=== PATIENT | female | born 1995 | race Caucasian/White ===

== ENCOUNTER 2018-09-05 09:12 | Day surgery (SDC) | payer OTHER, SELFPAY ==
[2018-09-05] VITALS (8 sets, daily range): BP systolic 111–146; BP diastolic 66–95; PULSE 67–98; RESP 16–18; TEMP 36.1–36.6; O2SAT 92–100; BMI 43.9
[2018-09-05 09:52] LABS: Internal QC Validated? YES +Cl - CLEAR BKGD; Pregnancy, Urine Negative Negative
[2018-09-05 09:55] LABS: Hematocrit 34.9 % (37-47); Hemoglobin 10.8 g/dl (12.0-15.0); Mean Corp Hgb Conc 30.9 g/gl (32-36); Mean Corpuscular Hgb 22.5 pg (27.0-32.0); Mean Corpuscular Volume 72.7 fL (81-99); Mean Platelet Vol. 9.4 fl (6.2-12.0); Platelet Count 379 K/mm3 (150-450); RBC Distribution Width SD 42.4 fl (35.1-43.9); White Blood Count 7.7 K/mm3 (4.4-11.0)
[2018-09-05 09:59] LABS: Scan Indicated on CBC? Y/N YES- FLAGS NOTED
[2018-09-05 10:00] LABS: International Normalized Ratio 1.1; Prothrombin Time (Protime)PT. 13.8 SECONDS (11.7-14.9)
[2018-09-05 10:01] LABS: Partial Thromboplast Time 32.7 Seconds (24.1-36.2)
--- NOTE | 2018-09-05 11:05 | TONS_PTH ---
PATIENT: SHERIN SANDOVAL [place] [facility] [place] [facility] [place][id number] AGE/SX: 23/ ROOM: RE09/05/[address]: Dr. Ray Robbins MD : 1995 BED: DIS: 09/05/2018 SPEC #: [id number] RECD: 09/08/18 07:15 STATUS: ESAU NA #: [id number] DELFIN: 09/05/18 11:[address]: Ray Robbins DEPT: SURGICAL PATHOLOGY RECD BY: Nory Contreras ENTERED: 09/08/18 11:03 SP TYPE: TONSILS OTHR DR: GLENN uCrtis Tissues: A - Tonsil, NOS B - Tonsil, NOS Procedures: Surgery Specimen Level III HEADER OPERATION: Tonsillectomy PRE-OP DIAGNOSIS: Chronic tonsillitis TISSUE SUBMITTED: A. Right tonsil, B. Left tonsil MICROSCOPIC DIAGNOSIS A. Right tonsil: Reactive lymphoid hyperplasia, consistent with chronic tonsillitis. Focal superficial acute inflammation and bacterial colonization. B. Left tonsil: Reactive lymphoid hyperplasia, consistent with chronic tonsillitis. Focal superficial acute inflammation, bacterial and actinomyces colonization. CUCA:janet 09/09/18 MICROSCOPIC DESCRIPTION Slides are reviewed. GROSS DESCRIPTION A - Received in formalin labeled with the patient's name and designated right tonsil. The specimen consists of a tonsil that weighs 6.8 gm and measures 3.5 x 2 x 1.6 cm. The external surface is pink-davalos, smooth, glistening and somewhat lobulated. Focally it is hemorrhagic, granular and bears cautery artifact. Serial cross sections through the tonsil reveal normal tonsillar architecture. Financial Sales Assistant sections are submitted in one cassette. B - Received in formalin labeled with the patient's name and designated left tonsil. The specimen consists of a tonsil that weighs 6 gm and measures 3.2 x 2 x 1.6 cm. The external surface is pink-davalos, smooth, glistening and somewhat lobulated. Focally it is hemorrhagic, granular and bears cautery artifact. Serial cross sections through the tonsil reveal normal tonsillar architecture. Financial Sales Assistant sections are submitted in one cassette. / CUCA:janet 09/08/18 TC:3 CPT: 94810 x2
--- NOTE | 2018-09-05 12:19 | PCM.OPRPT ---
Problem List (1) Chronic tonsillitis Status: Chronic Report of Operation Date of Procedure: 09/05/18 Pre-Operative Diagnosis: Chronic tonsillitis Post-Operative Diagnosis: same Surgery/Procedure Performed:: Tonsillectomy Description of Surgical Findings:: Sonia is a 19-year-old female which is evaluation of chronic and worsening sore throat secondary to tonsillar stones. This is failed to resolve with hygienic measures and the above procedure was offered in hopes of more definitive relief. The risks, alternatives, potential complications, and benefits were discussed at length and any questions answered to the patient and/or caregiver's satisfaction. Witnessed informed consent was obtained in the office, and the patient and/or caregiver was agreeable to proceed. Procedure went as follows: The patient was identified in the preoperative holding, brought to the operating room, was placed under general anesthesia and intubated. When appropriate anesthesia was obtained, the head of bed was rotated and the patient prepped and draped in usual sterile fashion. A Apple Fco mouthgag was then placed and the patient suspended from the Bahena stand. The oral cavity was examined and noted to have 3+ cryptic tonsillar hypertrophy. Beginning on the right side, the right tonsil was then grasped with a curved tenaculum and dissected from the underlying capsule with monopolar cautery. This was then sent as specimen. Similar procedure was then completed on the contralateral side. The oral and nasal cavities were then irrigated with saline solution. An NG tube was then placed to decompress the stomach. The patient was then returned to anesthesia, revived and extubated having tolerated the procedure well. Type of Anesthesia:: General Anesthesiologist: Alejandro Stringer Special Medications: none Specimen's removed: bilateral tonsils Drains: none Estimated Blood Loss (mL): 0 mL Fluids Replaced: 700 mL Grafts/Implants Used: none - Complications none - Admit VTE Documentation VTE Present on Admission: No VTE Mechan Device Prophylaxis: SCD's VTE Pharm Prophylaxis ordered?: No
--- NOTE | 2018-09-05 12:24 | DCINST_ITS ---
Discharge Diet: No Restrictions Discharge Activity: Return to Normal Activity Call your doctor if your incision/area has: Sudden Increased Bleeding Call your doctor if you observe: Fever of 101 or Higher, Uncontrolled pain Allergies/Adverse Reactions: Allergies No Known Allergies Allergy (Verified 09/05/18 09:44) Medications to take at Discharge Ferrous Sulfate [Iron] 325 mg PO DAILY 09/03/18 Primary Care Physician: Adrienne Rinaldi NP-C [Primary Care Provider] - Test Results: Test results from this visit will be discussed in further detail at your follow- up appointment, if applicable. Please Follow Up With: Ray Robbins MD When: 2 weeks
[2018-09-05] MEDS: Acetaminophen 160 MG/5 ML UDC 500 MG PO (13:55)
[2018-09-05] MEDS: Ibuprofen 100 MG/5 ML UDC 500 MG PO (14:21)
[2018-09-05] MEDS: Ondansetron 4 MG/2 ML Vial IV (15:40)
== END 2018-09-05 16:24 | disposition home or self-care (01) ==
LOC: SDC 09:16 → AC 09:21
PROVIDERS: Anesthesiology; Family Provider Nurse Practitioner Family; PCP Nurse Practitioner Family; Referring Provider Otolaryngology; Visit Provider Otolaryngology
PROC: (CPT 42826; principal; 2018-09-05 10:55)
DX: J35.01 Chronic tonsillitis (principal); H92.03 Otalgia, bilateral; D64.9 Anemia, unspecified
CPT/HCPCS: 00170; 42826; 81025; 85027; 85610; 85730; 88304; J7120; J2405

== ENCOUNTER 2023-11-30 11:36 | Emergency (ER) | payer BC, SELFPAY ==
[2023-11-30 11:37] VITALS: BP 160/112; BP 165/100; PULSE 125; PULSE 126; RESP 18; TEMP 37.2; O2SAT 98; BMI 50.7
[2023-11-30 12:00] VITALS: BP 133/95; PULSE 106
--- NOTE | 2023-11-30 12:08 | ED.VIS.FEGU ---
HPI HPI - Female History of Present Illness Chief Complaint: Vag Bleeding Informant: patient Narrative Narrative: Patient presents secondary to heavy vaginal bleeding. She is a history of heavy periods, but states she underwent a uterine biopsy 2 days ago at the [facility] here in [facility]. Since that time she has had heavier bleeding with some cramping that seems to be worse to the left. Patient states that she is using 2 overnight pads at a time. She will soak these and bleed through them in about 1 hour time. She is not having significant clots. [facility] Medical History (Updated 11/30/23 @ 13:[address] Jocelyn Yang MD) Menorrhagia Home Medications ?Medication ?Instructions ?Recorded ?Last Taken ?Type ferrous sulfate 325 mg (65 mg 325 mg PO DAILY 09/03/18 Unknown History iron) tablet (iron) acetaminophen 160 mg/5 mL (5 mL) 500 mg (15.625 mL) PO Q4H PRN PRN 09/05/18 Unknown Rx oral suspension Mild-Mod Pain (1-5/10) ibuprofen 100 mg/5 mL oral 500 mg (25 mL) PO Q6H PRN PRN 09/05/18 Unknown Rx suspension (Children's Ibuprofen) Mod-Severe Pain (4-10/10) Allergy/AdvReac Type Severity Reaction Status Date / Time No Known Allergies Allergy Verified 11/30/23 11:38 Social History Smoking Status: Never smoker ROS ROS ED Constitutional Constitutional ED: Denies chills or fever(s) Eyes Eyes: Denies discharge from eye(s) ENT ENT ED: Denies discharge from eye(s), rhinorrhea or sore throat Cardiovascular Cardiovascular: Denies chest pain Respiratory/Chest Respiratory/Chest: Denies cough or dyspnea Gastrointestinal Gastrointestinal: Reports abdominal pain; Denies nausea or vomiting Genitourinary Genitourinary ED: Denies dysuria Musculoskeletal Musculoskeletal: Denies back pain or extremity pain Integumentary Denies Abrasions or rash Neurologic Neurologic: Denies headache(s) or weakness Psychiatric Psychiatric: Denies anxiety or depression Allergic/Immunologic Allergic/Immunologic ED: Denies lip swelling or urticaria EXAM Physical Exam Const Vital Signs: 11/30/23 11:37 11/30/23 11:37 11/30/23 12:00 Temperature 99 F Temperature Source Temporal Pulse Rate 125 H 126 H 106 H Respiratory Rate 18 18 Blood Pressure 165/100 H 160/112 H 133/95 H Blood Pressure Mean 121 128 107 Pulse Ox 98 98 Oxygen Delivery Method Room Air Room Air Positive well nourished and well developed General Appearance ED: well developed HEENT Reports moist mucous membranes Eyes EOMs intact bilaterally Chest Wall inspection of chest normal and palpation of chest normal Resp normal respiratory effort and clear to auscultation bilaterally Cardio Rate: tachycardic GI GI Narrative: Abdomen soft with mild tenderness outpatient in the lower abdomen, both the suprapubic and left lower quadrant. No guarding or rebound. Active bowel sounds are noted. Extremity normal to inspection Neuro no sensory deficits noted Motor Exam: strength 5/5 throughout Psych mental status grossly normal Skin no rashes or lesions noted MDM MDM MDM Narrative Medical decision making narrative: Patient placed on air sampling and monitoring. Repeat vital signs include a blood pressure of 133/95 with a heart rate of 102. Patient be given IV fluids. Labwork obtained to evaluate for leukocytosis, anemia, and electrolyte derangement. History & Record Review Discussion w/independent historian: Patient Additional record(s) reviewed:: Prior outpatient record and Prior labs Lab Data Attestation: I reviewed the patient's lab results. Labs: Laboratory Results - last 24 hr 11/30/23 12:10 WBC 7.0 RBC 5.14 Hgb 12.5 Hct 39.7 MCV 77.2 L MCH 24.3 L MCHC 31.5 L RDW Std Deviation 39.6 RDW Coeff of Jonatan 14.3 Plt Count 387 MPV 10.2 Immature Gran % (Auto) 0.300 Neut % (Auto) 64.8 Lymph % (Auto) 25.7 Hutchinson % (Auto) 7.0 Eos % (Auto) 1.3 Baso % (Auto) 0.9 Absolute Neuts (auto) 4.6 Absolute Lymphs (auto) 1.80 Nucleated RBC % 0 PT 15.5 H INR 1.2 APTT 28.6 Sodium 139 Potassium 3.5 Chloride 108 H Carbon Dioxide 23.0 Anion Gap 8 BUN 13 Creatinine 0.90 Estim Creat Clear Calc 125.83 Est GFR (MDRD) Af Amer 95 Est GFR (MDRD) Non-Af 78 BUN/Creatinine Ratio 14.4 Glucose 93 Calcium 8.7 Blood Type O NEGATIVE Antibody Screen NEGATIVE Treatment and Re-Evaluation Narrative: CBC was normal white count 7.0 with 64% neutrophils. Hemoglobin is 12.5. Chemistry studies are unremarkable. test is negative. Blood type is O-. I spoke with Yohana Barrientos, nurse microeconomics professor on-call for [facility] PHOTOCOPYING EQUIPMENT REPAIRER. She does not feel that a pelvic ultrasound will be beneficial. She did recommend I start the patient on Aygestin. When I went back to talk to the patient about this, she states that she is already on Aygestin and forgot to mention that to us. She is still taking this 3 times a day. I spoke with Yohana again and she agrees the patient should to stay on this medication and follow-up closely early next week. I did review the patient's hemoglobin draw from the , the day of her procedure. Her hemoglobin on was 12.6 and today is 12.5. She is stable for discharge and close follow-up. Discharge Plan Triage Chief Complaint: Vag Bleeding ED Provider: Jocelyn Yang Dx/Rx/DC Orders Clinical Impression: Menorrhagia Instructions: ED Heavy Menstrual Bleeding Prescriptions: No Action ferrous sulfate [iron] 325 MG tablet 325 mg PO DAILY ibuprofen [Children's Ibuprofen] 100 MG/5 ML suspension 500 mg PO Q6H PRN PRN (Reason: Mod-Severe Pain (4-10/10)) 0RF acetaminophen 160 MG/5 ML suspension 500 mg PO Q4H PRN PRN (Reason: Mild-Mod Pain (1-5/10)) 0RF Primary Care Provider: Gilma Patel Referrals: Adrianna Luque NP-C [Non-Staff -Ordering Privileges] - 2 Days Adrienne Rinaldi NP, INTERIOR DECORATOR PAINTING-C [Non-Staff] - Print Language: Turkmen Disposition Disposition: Home, Self Care
[2023-11-30] MEDS: 0.9% Normal Saline (1000mL) 1,000 ML 150 ML IV (12:15)
[2023-11-30 12:23] LABS: Absolute Neutrophil Count 4.6 X10^3/uL (2.0-7.7); Basophil# 0.06 X10^3/uL; Basophil% 0.9 % (0-1); Eosinophil# 0.09 X10^3/uL; Eosinophils% 1.3 % (0-5); Hematocrit 39.7 % (37-47); Hemoglobin 12.5 g/dL (12.0-15.0); Lymphocyte % 25.7 % (19-41); Mean Corp Hgb Conc 31.5 g/dL (32-36); Mean Corpuscular Hgb 24.3 pg (27.0-32.0); Mean Corpuscular Volume 77.2 fL (81-99); Mean Platelet Vol. 10.2 fl (6.2-12.0); Monocyte# 0.49 X10^3/uL; NRBC Flagged by Analyzer 0 % (0-5); Neutrophil # 4.55 X10^3/uL (2.7-7.7); Neutrophil % 64.8 % (47-70); Platelet Count 387 K/mm3 (150-450); RBC Distribution Width CV 14.3 % (11.6-14.6); RBC Distribution Width SD 39.6 fl (35.1-43.9); Red Blood Count 5.14 M/mm3 (4.2-5.4)
[2023-11-30 12:32] LABS: Anion Gap 8 (5-15); BUN 13 mg/dL (7-18); BUN/Creat Ratio 14.4 RATIO (10-20); Calcium,Total 8.7 mg/dL (8.5-10.1); Chloride 108 mmol/L (98-107); EST Glomerular Filtration Rate 78 mL/min (>60); Est Glom Filt Rate - Afr Amer 95 mL/min (>60); Estimated Creatinine Clearance 125.83 ml/min; Glucose 93 mg/dL (74-106); Potassium 3.5 mmol/L (3.5-5.1); Sodium Level 139 mmol/L (136-145)
[2023-11-30 12:34] LABS: International Normalized Ratio 1.2; Prothrombin Time (Protime)PT. 15.5 SECONDS (11.7-14.9)
[2023-11-30 12:35] LABS: Partial Thromboplast Time 28.6 Seconds (24.1-36.2)
[2023-11-30 13:30] VITALS: BP 135/97; PULSE 81; RESP 18; TEMP 36.6; O2SAT 98
== END 2023-11-30 13:40 | disposition home or self-care (01) ==
PROVIDERS: Emergency Provider Emergency Medicine; PCP Nurse Practitioner Family; Visit Provider Emergency Medicine
DX: N92.0 Excessive and frequent menstruation with regular cycle (principal)
CPT/HCPCS: 80048; 85025; 85610; 85730; 86850; 86900; 86901; 99284; A4216

== ENCOUNTER 2023-12-20 11:30 | Day surgery (SDC) | payer BC, SELFPAY ==
--- NOTE | 2023-12-05 12:49 | PCM.HP.BLA ---
History and Physical Date of Admission: 12/20/23 HPI: The patient is a 28 year old female presenting for pre-operative visit. She is scheduled for Hysteroscopy D&C with polyp resection for AUB on 12/20/23. Procedure discussed along with risks, benefits and complications. Other alternatives discussed for management. Consent form signed? Yes. PAST MEDICAL HISTORY PAST MEDICAL HISTORY Diagnosis Date ? 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 attack ? Hypothyroidism ? Iron deficiency anemia ? Kidney stones PAST SURGICAL HISTORY PAST SURGICAL HISTORY Procedure Laterality Date ? CATH/STENT RENAL DRAINAGE ? EXTRACTION ERUPTED TOOTH/EXR wisdom teeth ? LITHOTRIPSY XTRCORP SHOCK WAVE X 2 ? REMOVAL OF HEEL SPUR Right CURRENT MEDICATIONS Current Outpatient Medications Medication Sig Dispense Refill ? megestrol (MEGACE) 20 mg tablet Take 1 tablet (20 mg) by mouth two times a day for 10 days. 20 tablet 1 ? busPIRone (BUSPAR) 15 mg tablet Take 1 tablet by mouth three times a day. 270 tablet 0 ? FLUoxetine (PROZAC) 20 mg capsule Take 1 capsule by mouth once daily. 90 capsule 1 ? levothyroxine (SYNTHROID) 50 mcg tablet Take 1 tablet by mouth once daily. 90 tablet 0 ? hydrOXYzine HCl (ATARAX) 10 mg tablet Take 1 tablet by mouth two times a day as needed. 90 tablet 2 No current facility-administered medications for this visit. ALLERGIES: Patient has no known allergies. PERSONAL HISTORY: SOCIAL HISTORY Social History Tobacco Use ? Smoking status: Never Passive exposure: Never ? Smokeless tobacco: Never Vaping Use ? Vaping Use: Never used Substance Use Topics ? Alcohol use: Not Currently ? Drug use: Never FAMILY HISTORY: FAMILY HISTORY FAMILY HISTORY Problem Relation Age of Onset ? Breast Cancer Mother ? other (hysterectomy) Mother ? Cervical Cancer Mother ? other (throat cancer) Father ? No Known Problems Sister ? No Known Problems Sister ? Diabetes Brother ? No Known Problems Brother ? No Known Problems Brother ? Cervical Cancer Maternal Grandmother ? Dementia Maternal Grandfather REVIEW OF SYMPTOMS: GENERAL: denies fevers or chills ENDOCRINOLOGY: has not been on steroids Cardiology : denies palpitations or chest pain Respiratory: denies SOB or cough Hematology: denies history of prolonged bleeding or easy bruising or VTE Allergy: Denies history of personal or family history of allergy to anesthesia PHYSICAL EXAMINATION: VITALS: Blood pressure 136/98, pulse 87, height 163.8 cm (5' 4.5), weight 133.8 kg (295 lb), SpO2 100%. GENERAL: The patient is well nourished, well hydrated in no acute distress. , The patient is oriented to time, place, and person. NECK: Supple. No lynphadenopathy, normal thyroid, no thyromegaly. LUNGS: Clear to auscultation bilaterally. no wheezes, rhonchi or rales HEART: Regular rate and rhythm, Normal heart sounds, and No murmurs or gallops IMPRESSION: AUB, morbid obesity PLAN: The risks/benefits/alternatives and personal involved for the planned hysteroscopy D&C polyp resection and IUD insertion were reviewed with the patient. Her questions were answered to her satisfaction and she desires to proceed. Consent was signed. I reviewed with her postop instructions and expectations. If uterus 7 Cm or greater on sound, trial dante, if now return next week to office for paracervical block and Kyleena I have reviewed and updated past medical and surgical history, medications and allergies Assessment & Plan Assessment/Plan (1) Menorrhagia: (2) Endometrial polyp: (3) Iron deficiency:
[2023-12-20] VITALS (7 sets, daily range): BP systolic 141–159; BP diastolic 84–103; PULSE 77–99; RESP 16; TEMP 36.2–37.1; O2SAT 100; BMI 49.9
[2023-12-20 11:57] LABS: Internal QC Validated? YES +Cl - CLEAR BKGD; Pregnancy, Urine Negative Negative
[2023-12-20] MEDS: Lactated Ringers 1,000 ML 15 ML IV (12:05)
[2023-12-20] MEDS: Ketorolac 30 MG/ML Syringe IV (12:05)
[2023-12-20] MEDS: Acetaminophen 500 MG Tablet 1000 MG PO (12:06)
--- NOTE | 2023-12-20 12:15 | PRE.ANES_ITS ---
ASA Classification* ASA Classification ASA Classification: 3 Assessment & Plan Anesthesia* Anesthesia Assessment Anesthesia Assessment: Discussed sedation and/or anesthesia options, risks, benefits, and alternatives with patient/parents/legal guardian/POA. Questions invited. The patient/parents/legal guardian/POA seems to understand and agrees to proceed with anesthesia plan. Reviewed the physical assessment, medical history, allergy history and patient home medications list prior to surgery/procedure/anesthetic and documented any changes. Performed airway and anesthesia risk assessments. Anesthesia Type Anesthesia Type: MAC (see written pre anesthesia record for full assessment) Anesthesia Focused Assessment* Temperature: 98.8 F Pulse Rate: 99 Blood Pressure: 158/99 Respiratory Rate: 16 Pulse Ox: 100 Airway Assessment Mouth opens: >3 cm Mallampati Score: III Focused Labs Anesthesia Preop lab: CBC WBC 7.0 K/mm3 (4.4-11.0) 11/30/23 12:10 RBC 5.14 M/mm3 (4.2-5.4) 11/30/23 12:10 Hgb 12.5 g/dL (12.0-15.0) 11/30/23 12:10 Hct 39.7 % (37-47) 11/30/23 12:10 Plt Count 387 K/mm3 (150-450) 11/30/23 12:10 CHEMISTRY Potassium 3.5 mmol/L (3.5-5.1) 11/30/23 12:10 Sodium 139 mmol/L (136-145) 11/30/23 12:10 BUN 13 mg/dL (7-18) 11/30/23 12:10 Creatinine 0.90 mg/dL (0.55-1.02) 11/30/23 12:10 Glucose 93 mg/dL (74-106) 11/30/23 12:10 COAG PT 15.5 SECONDS (11.7-14.9) H 11/30/23 12:10 Urine Test Negative Negative 12/20/23 11:45 Pre-Assessment Diagnosis/Proposed Procedure Planned Operative Procedure(s): Hysteroscopy,D&C, possible polyp resection, Symphion Anesthesia History 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 When Was Last Pacemaker Check QUESTION #4 FULL TEXT: You/Your Family Experience fever (hyperthermia) with Anesthesia Last Oral Intake Last Oral intake: Last Oral Intake NPO since 00:00 12/20/23 12:08 Meds taken in AM with sips of Yes 12/20/23 12:08 water? 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 Female Yes 12/12/23 10:37 HX of Motion Sickness Yes 12/12/23 10:37 HX of N/V After Surgery Yes 12/12/23 10:37 Non-Smoker Yes 12/12/23 10:37 Duration of Surgery greater No 12/12/23 10:37 than 60 minutes Number of Risk Factors 4 12/12/23 10:37 PONV Score Severe Risk 12/12/23 10:37 Height & Weight Height & Weight: Anesthesia: Height & Weight Height 5 ft 4 in 12/20/23 12:08 Weight: 132 kg 12/20/23 12:08 Body Mass Index (BMI) 49.9 12/20/23 12:08 Respiratory Assessment Respiratory Assessment - summer school coordinator: Respiratory Tract Infection Hx - summer school coordinator Hx Respiratory Tract Infection No 12/12/23 10:37 STOP Sleep Apnea STOP Sleep Apnea - summer school coordinator: STOP Sleep Apnea - summer school coordinator Hx Hypertension No 12/12/23 10:37 Hx Sleep Apnea No 12/12/23 10:37 CPAP BIPAP Do you snore loudly (louder No 12/12/23 10:37 than talking or can be heard Do you often feel tired/ No 12/12/23 10:37 fatigued/ sleepy during daytime? Has anyone observed you stop No 12/12/23 10:37 breathing during sleep? STOP Results Negative 12/12/23 10:37 QUESTION #5 FULL TEXT : Do you snore loudly (louder than talking or can be heard through closed doors)? 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 Specify any problems Hx of Preganancy in last 3 N/A 12/12/23 10:37 Months Nurse Filling Out Transfusion NBUCHER 12/12/23 10:37 & Questions: Date: 12/12/23 12/12/23 10:37 Time: 10:39 12/12/23 10:37 Patient unable to answer at this time (ie. confused, unrespo /Reproduction History /Reproductive History - summer school coordinator: /Reproductive Hx- summer school coordinator Hx Now No 12/12/23 10:37 Gestational Age (in weeks): EDC: Hx Hx Para Hx Section SAB No 12/12/23 10:37 Active Medications Active Medications: Current Medications Generic Name Dose Route Start Last Admin Trade Name Freq PRN Reason Stop Dose Admin Acetaminophen 1,000 mg 12/20/23 13:50 12/20/23 12:06 Acetaminophen 500 Mg Tablet PO 12/20/23 13:51 1,000 mg PREOP ONE Administration Lactated Ringer's 1,000 mls @ 15 mls/hr 12/20/23 11:45 12/20/23 12:05 IV 15 mls/hr .Q48H JAREN Administration Ketorolac Tromethamine 30 mg 12/20/23 13:50 12/20/23 12:05 Ketorolac 30 Mg/Ml Syringe IV 12/20/23 13:51 30 mg PREOP ONE Administration Levonorgestrel 1 each 12/20/23 13:50 Levonorgestrel Iud (Liletta) INTRA-UTER 12/20/23 13:51 X1 ONE COUNT INCLUDES THE [facility] Medical History Anxiety History of steroid therapy Thyroid disease Easy bruising Low iron Shortness of breath on exertion History of stress test History of echocardiogram Non-smoker PONV (postoperative nausea and vomiting) Menorrhagia Home Medications ?Medication ?Instructions ?Recorded ?Last Taken ?Type ferrous sulfate 325 mg (65 mg 325 mg PO QODAY 09/03/18 Unknown History iron) tablet (iron) buspirone 15 mg tablet 15 mg PO TID 12/12/23 Unknown History fluoxetine 20 mg capsule 20 mg PO DAILY 12/12/23 Unknown History hydroxyzine HCl 10 mg tablet 10 mg PO BID PRN PRN panic 12/12/23 Unknown History attack(s) levothyroxine 50 mcg tablet 50 mcg PO DAILY 12/12/23 Unknown History megestrol 20 mg tablet 20 mg PO BID 12/12/23 Unknown History Allergy/AdvReac Type Severity Reaction Status Date / Time No Known Allergies Allergy Verified 12/12/23 10:34 Social History Smoking Status: Never smoker Review of Systems (Anesthesia) ROS Narrative System reviewed and no additional complaints, except as documented.
--- NOTE | 2023-12-20 13:05 | EMB_PTH ---
PATIENT: SHERIN SANDOVAL [place] [facility] [place][id number] AGE/SX: 28/F ROOM: RE12/20/[address]: Dr. Jolene Sutton MD : 1995 BED: DIS: 12/20/2023 SPEC #: [id number] RECD: 12/20/23 16:31 STATUS: ESAU MONZON #: [id number] DELFIN: 12/20/23 13:[address]: Jolene Sutton DEPT: SURGICAL PATHOLOGY RECD BY: Salena Capps ENTERED: 12/23/23 09:34 SP TYPE: ENDOM BX/C OT DR: Gilma Patel, SANGITA-C Tissues: Endometrium, NOS Procedures: Surgery Specimen Level IV HEADER OPERATION: Hysteroscopy, D&C, possible polyp resection PRE-OP DIAGNOSIS: Abnormal uterine bleeding, desires contraception TISSUE SUBMITTED: Endometrial curettings and polyp MICROSCOPIC DIAGNOSIS Endometrial and polyp curettings: Dyssynchronous endometrium. Fragments of benign myometrium. See comment. Alice 12/24/2023 COMMENT The specimen contains disordered proliferative glands in background of secretory endometrium. Case has been reviewed in consultation with Dr. Daniels who concurs with the above diagnosis. IDC:[id number] MICROSCOPIC DESCRIPTION Slides are reviewed. GROSS DESCRIPTION Received in fixative is one container labeled with the patient's name and designated Endometrial curettings and polyp. The specimen consists of multiple irregular fragments of davalos soft tissue that in aggregate measure 3.0 x 2.5 x 0.3 cm. The specimen is totally submitted in one cassette. 12/23/2023 TC:5 CPT:44078
--- NOTE | 2023-12-20 14:31 | DCINST_ITS ---
Discharge Instructions Diet Discharge Diet: No restrictions Activity May shower in (days): 1 May resume sexual activity in: 2 weeks Lifting Restrictions: none Dressing / Incision Call your doctor if your incision/area has: Sudden Increased Bleeding and Foul Smelling Discharge Call your doctor if you observe: Fever of 101 or Higher and Using more than 1 p ad per hour (for 2 hrs in a row) Follow Up Care Please Follow Up With: Jolene Sutton MD When: In 6-8 weeks or as needed. Call [phone] or send a [employer] message to make an appointment or with any concerns. Test Results: Test results from this visit will be discussed in further detail at your follow- up appointment, if applicable. Discharge Plan Admission Primary Reason for Your Visit: Hysteroscopy D&C with polyp resection and Liletta IUD insertion Attending Provider: Jolene Sutton Primary Care Provider: Gilma Patel Instructions Print Language: Amharic Discharge Orders/Prescriptions Prescriptions: No Action ferrous sulfate [iron] 325 MG tablet 325 mg PO QODAY levothyroxine 50 mcg tablet 50 mcg PO DAILY megestrol 20 mg tablet 20 mg PO BID hydroxyzine HCl 10 mg tablet 10 mg PO BID PRN PRN (Reason: panic attack(s)) fluoxetine 20 mg capsule 20 mg PO DAILY buspirone 15 mg tablet 15 mg PO TID Referrals / Follow Up: Gilma Patel, SANGITA-C [Primary Care Provider] - Disposition Disposition (needs filled in before D/C Order can be placed): Home, Self Care
--- NOTE | 2023-12-20 14:49 | PCM.OPRPT ---
Problems Associated Problem List Diagnoses (1) Iron deficiency: (2) Endometrial polyp: (3) Menorrhagia: Report of Operation Date of Procedure: 12/20/23 Pre-Operative Diagnosis: Menorrhagia, endometrial polyp, fe def. anemia from chronic blood loss Post-Operative Diagnosis: same +IUD insertion Surgery/Procedure Performed:: Hysteroscopy D&C with polyp resection Description of Surgical Findings:: normal cervix and vagina, normal endometrium w/ small polypoid appearing lesion on left lateral wall Surgeon: [facility] manager: None Type of Anesthesia: MAC/Supplemental/Local Anesthesiologist: Lary Mi Special Medications: none Specimen's removed: Endometrial curettings and polyp Drains: none Estimated Blood Loss (mL): 10 Fluids Replaced: 500 Description of Procedure: The patient was taken to the OR where she was prepped and draped in dorsal lithotomy position. The weighted speculum was placed in the vagina and the anterior lip of the cervix was grasped with a single-tooth tenaculum. A paracervical block was administered with with 1% lidocaine with epinephrine. The cervix was dilated serially with Hegar dilators. The Symphion hysteroscope was placed into the uterine cavity and the above findings were noted. Bilateral tubal ostia [were] identified. The resection device was inserted and a visual D&C was done and the polypoid appearing lesion on the left lateral uterine wall was removed in entirety. The Liletta IUD was readied and the uterus sounded to 9 cm. The Liletta device was inserted in the usual sterile fashion and strings cut to 2 cm. The instruments were removed from the vagina. The specimen was handed off and sent to pathology. All sponge and needle counts were correct. Vaginal sweep was performed by me. The patient was awakened and taken to the recovery room in stable condition. Calculated hysteroscopic fluid deficit was 600 cc of normal saline Grafts/Implants Used: Liletta IUD Procedure Start Time: 14:56 Procedure Stop Time: 15:01 Complications none Admit VTE Documentation VTE Present on Admission: No VTE Mechan Device Prophylaxis: SCD's VTE Pharm Prophylaxis ordered?: No Reason prophylaxis not ordered:: Procedure Not Indicated
[2023-12-20] MEDS: Lidocaine 1% /Epi 1:100 (20ml) 20 ML Vial (14:56)
[2023-12-20] MEDS: Levonorgestrel IUD (Liletta) 1 EACH INTRA-UTER (15:02)
--- NOTE | 2023-12-20 15:15 | PCM.POST.ANE ---
Anesthesia: Postop Eval I Current Vital Signs Temperature: 97.1 F Pulse Rate: 94 Blood Pressure: 148/89 Respiratory Rate: 16 Pulse Ox: 100 Oxygen Delivery Method: Room Air Assessment Airway patent: Yes Spontaneous unlabored respirations: Yes Mental status: Awake and Calm nausea: No Vomiting: No Anesthesia Complication: No Fluid Hydration Crystalloid volume administer (ml): 500 Total IV fluid infused: 500 Progress Note Anesthesia document: Postop Eval 1 completed: Yes
--- NOTE | 2023-12-20 15:16 | POSTOPAN2_ITS ---
Anesthesia Postop Eval I Sum Postop Eval Completion status Anesthesia document: Postop Eval 1 completed: Yes Anesthesia Postop Eval I Summary Anesthesia Postop Eval I Summary: Anesthesia Postop Eval I: Assessment Summary Airway patent Yes 12/20/23 15:16 [email or web address] Spontaneous unlabored Yes 12/20/23 15:16 TAPER [email or web address] respirations Mental status Awake,Calm 12/20/23 15:16 [email or web address] [email or web address] nausea No 12/20/23 15:16 TAPER [email or web address] Vomiting No 12/20/23 15:16 TAPER [email or web address] Anesthesia Postop Eval I: Fluid Summary Crystalloid volume administer 500 12/20/23 15:16 TAPER [email or web address].MDOT (ml) Colloids volume administered ( ml) Blood Product volume administered (ml) Total IV fluid infused 500 12/20/23 15:16 TAPER [email or web address] Anesthesia Postop Eval I: Summary Notes Anesthesia Complication No 12/20/23 15:16 [email or web address] Anesthesia Complication Comment: Post-operative progress note Anesthesia: Postop Eval II Evaluation Mental status: Awake and Calm Pain Level: 0 nausea: No Vomiting: No Complications Anesthesia Complication: No
--- NOTE | 2023-12-20 15:16 | PCM.POSTANE2 ---
Anesthesia Postop Eval I Sum Postop Eval Completion status Anesthesia document: Postop Eval 1 completed: Yes Anesthesia Postop Eval I Summary Anesthesia Postop Eval I Summary: Anesthesia Postop Eval I: Assessment Summary Airway patent Yes 12/20/23 15:16 SCREW DRIVER [email or web address] Spontaneous unlabored Yes 12/20/23 15:16 SCREW DRIVER OPERATOR.MDOT respirations Mental status Awake,Calm 12/20/23 15:16 SCREW DRIVER [email or web address].MDOT nausea No 12/20/23 15:16 SCREW DRIVER OPERATOR.MDOT Vomiting No 12/20/23 15:16 SCREW DRIVER [email or web address].[email or web address] Anesthesia Postop Eval I: Fluid Summary Crystalloid volume administer 500 12/20/23 15:16 SCREW DRIVER [email or web address].MDOT (ml) Colloids volume administered ( ml) Blood Product volume administered (ml) Total IV fluid infused 500 12/20/23 15:16 SCREW DRIVER OPERATOR.MDOT Anesthesia Postop Eval I: Summary Notes Anesthesia Complication No 12/20/23 15:16 SCREW DRIVER OPERATOR.MDOT Anesthesia Complication Comment: Post-operative progress note Anesthesia: Postop Eval II Evaluation Mental status: Awake and Calm Pain Level: 0 nausea: No Vomiting: No Complications Anesthesia Complication: No
== END 2023-12-20 16:05 | disposition home or self-care (01) ==
LOC: SDC 11:35 → AC 11:36
PROVIDERS: PCP Nurse Practitioner Family; Referring Provider Obstetrics & Gynecology; Visit Provider Obstetrics & Gynecology
PROC: 0UB98ZZ Excision of Uterus, Via Natural or Artificial Opening Endoscopic (ICD-10-PCS; CPT 58558; principal; 2023-12-20 12:50)
DX: N84.0 Polyp of corpus uteri (principal); E66.01 Morbid (severe) obesity due to excess calories; Z79.890 Hormone replacement therapy; N93.9 Abnormal uterine and vaginal bleeding, unspecified; N92.0 Excessive and frequent menstruation with regular cycle; Z30.430 Encounter for insertion of intrauterine contraceptive device; E03.9 Hypothyroidism, unspecified; Z79.899 Other long term (current) drug therapy; D50.0 Iron deficiency anemia secondary to blood loss (chronic); F41.9 Anxiety disorder, unspecified; E07.9 Disorder of thyroid, unspecified
CPT/HCPCS: 58558; 58300; 00952; 81025; 88305; J7120; J2405

== ENCOUNTER 2025-03-05 20:58 | Emergency (ER) | payer BC, SELFPAY ==
[2025-03-05 20:59] VITALS: BP 146/114; PULSE 117; RESP 22; TEMP 36.4; O2SAT 100; BMI 54.0
--- NOTE | 2025-03-05 21:11 | EX.ED.DYSGE1 ---
HPI History of Present Illness Chief Complaint: Anxiety Narrative Narrative: Patient is a 29-year-old female with past medical history anxiety, hypothyroidism who presents to the emergency department with a chief complaint of her whole body feeling numb and feeling short of breath and states that she took a THC plus CBD gummy about 10.5 mg about 40 minutes ago. She states that she is fearful that this is interacting with her medications that she takes daily. Patient denies any underlying lung pathology. [facility] Medical History Menorrhagia Anxiety History of steroid therapy Thyroid disease Easy bruising Low iron Shortness of breath on exertion History of stress test History of echocardiogram Non-smoker PONV (postoperative nausea and vomiting) Home Medications ?Medication ?Instructions ?Recorded ?Last Taken ?Type ferrous sulfate 325 mg (65 mg 325 mg PO QODAY 09/03/18 12/19/23 History iron) tablet (iron) buspirone 15 mg tablet 15 mg PO TID 12/12/23 12/20/23 History fluoxetine 20 mg capsule 20 mg PO DAILY 12/12/23 12/20/23 History hydroxyzine HCl 10 mg tablet 10 mg PO BID PRN PRN panic 12/12/23 Unknown History attack(s) levothyroxine 50 mcg tablet 50 mcg PO DAILY 12/12/23 12/20/23 History megestrol 20 mg tablet 20 mg PO BID 12/12/23 12/19/23 History Allergy/AdvReac Type Severity Reaction Status Date / Time No Known Allergies Allergy Verified 03/05/25 20:59 Social History Smoking Status: Never smoker ROS ROS ED ROS Narrative Constitutional: Denies any fevers or chills denies headaches Eyes: Denies double vision Cardiovascular: Denies chest pain currently Respiratory: Denies coughing wheezing shortness of breath currently in the emergency department Abdomen: Denies abdominal pain nausea vomit diarrhea : Denies urinary symptoms Neurological: Denies numbness, weakness, tingling currently Musculoskeletal: Denies back pain Skin: Denies any rashes or lesions EXAM Physical Exam Narrative Exam Narrative: General: Patient lying in bed resting comfortably did not appear to be acute distress Head: Atraumatic, normocephalic Eyes: PERRL bilaterally, EOMI bilaterally, no conjunctival injection noted Neck: Soft, supple, trachea midline Cardiovascular: Patient tachycardic with a regular rhythm Respiratory: Clear to auscultation bilaterally Abdomen: Soft, nondistended, no tenderness palpation Extremities: +5/5 strength noted in the bilateral lower extremities Neurological: Patient follow commands knew that she was at [facility] the year is 2024 Skin: Warm, dry, intact no rashes or lesions noted Const Vital Signs: 03/05/25 20:59 03/05/25 21:18 Temperature 97.6 F L Temperature Source Temporal Pulse Rate 117 H 103 H Respiratory Rate 22 H 16 Blood Pressure 146/114 H 152/94 H Blood Pressure Mean 124 113 Pulse Ox 100 98 Oxygen Delivery Method Room Air Room Air MDM MDM MDM Narrative Medical decision making narrative: Patient is a 29-year-old female who presented to the emergency department with a chief complaint of anxiety/whole body numbness after taking THC and CBD gummy 10.5 mg dose. Clinically here in the emergency department the patient is nontoxic in appearance we will observe her. On reevaluation the patient at 9:50 PM she is feeling much better and would like to go home at this point in time. She was advised to follow-up with her doctor in the outpatient setting and return with worsening symptoms or any other concerns. She is agreeable this plan as well as significant other at bedside all question concerns were answered she was discharged home in stable condition Discharge Plan Triage Chief Complaint: Anxiety ED Provider: Tirso Carr Dx/Rx/DC Orders Clinical Impression: Anxiety, Marijuana use, History of thyroid disease Prescriptions: No Action ferrous sulfate [iron] 325 MG tablet 325 mg PO QODAY levothyroxine 50 mcg tablet 50 mcg PO DAILY megestrol 20 mg tablet 20 mg PO BID hydroxyzine HCl 10 mg tablet 10 mg PO BID PRN PRN (Reason: panic attack(s)) fluoxetine 20 mg capsule 20 mg PO DAILY buspirone 15 mg tablet 15 mg PO TID Primary Care Provider: Gilma Patel Referrals: Gilma Patel NP-C [Primary Care Provider, Medical] Activity Restrictions/Additional Instructions: Return to the emergency department with worsening symptoms or other concerns. Follow-up with your doctor in outpatient setting. Print Language: Telugu Disposition Disposition: Home, Self Care
--- OUTSIDE RECORDS SUMMARY | 2025-03-05 21:16 | XMS RPT_ITS | CCD ---
Author Organization [facility] Care Team Providers Care Admissions Manager Rn Name Role Phone Jeni Mauro Primary Care Provider [phone] JENI MAURO Primary Care Unavailable WILLIAM STRONG Attending Unavail able VLADIMIR WILLIAMBHAVANA ADAN Admitting Unavail able WILLIAM STRONG Referring Unavail able JENI MAURO Primary Care Unavailable Jeni Mauro Primary Care Provider [phone] Jeni Mauro CNP Primary Care Provider Alvaro Lamb DPM Unavailable [phone] JENI MAURO Primary Care Unavailable Alvaro Lamb DPM Unavailable Alvaro Lamb DPM Unavailable ALVARO LAMB Attending Unavaila JENI Jaime Primary Care Unavailable THIAGO ROSARIO Attending Unavailable JENI MAURO Primary Care Unavailable JENI MAURO Primary Care Unavailable ALVARO LAMB Attending Unavaila Adrienne Baker Unavailable Jeni Mauro Unavailable Nuris Cabrera Unavailable Unavailable Required, No Pcp Unavailable Unavailable Alan Draper Unavailable Mayo Oropeza Unavailable Unavailable Nohelia Shaw Unavailable Unavailabl e None, No PCP Unavailable Unavailable Unavailable Unavailable Trenton Valverde Unavailable JENI MAURO Primary Care Unavailable SAWYER ELENA Attending Unava ilable JENI MAURO Primary Care Unavailable KASSYSAWYER CHRISTENSEN Attending Unava ilable ABRAM, TRENTON BOWMAN Primary Care Unavailable SIOBHAN MOYA Attending Unavailable [place], Trenton Parr Unavailable Unavailable Isael Bermudez Unavailable Unavailable Michael, Cherry Unavailable Unavailable Unavailable [place], Trenton Bowman Referring Unavailabl e [place], Dr. Cherry Coleman Attending Unavailabl e [place], Mike Bowman Primary Care Unavailabl e [place], Dr. Cherry Coleman Referring Unavailabl e [place], Dr. Cherry Coleman Attending Unavailabl e Abram, Mike Bowman Primary Care Unavailabl e [place], Dr. Cherry Coleman Referring Unavailabl e [place], Dr. Cherry Coleman Attending Unavailabl e Abram, Trenton Bowman Primary Care Unavailabl e [place], Dr. Cherry Coleman Attending Unavailabl e [place], Mike Bowmna Primary Care Unavailabl e Abram, Mike Bowman Primary Care Unavailabl e Abram, Mike Bowman Primary Care Unavailabl e [place], Mrs. Trenton Bowman Attending Unavailabl e Abram, Mike Bowman Referring Unavailabl e [place], Mike Bowman Primary Care Unavailabl e [place], Mrs. Trenton Bowman Attending Unavailabl e [place], Mike Bowman Primary Care Unavailabl e [place], Mike Bowman Referring Unavailabl e [place], Mike Bowman Primary Care Unavailabl e Abram, Mike Bowman Referring Unavailabl e [place], Mrs. Trenton Bowman Attending Unavailabl e [place], Mike Bowman Primary Care Unavailabl e [place], Mrs. Trenton Bowman Referring Unavailabl e [place], Mrs. Trenton Bowman Attending Unavailabl e [place], Mike Bowman Referring Unavailabl e [place], Mrs. Trenton Bowman Primary Care Unavailabl e [place], Mrs. Trenton Bowman Attending Unavailabl e [place], Mrs. Trenton Bowman Referring Unavailabl e [place], Mrs. Trenton Bowman Primary Care Unavailabl e [place], Mrs. Trenton Bowman Attending Unavailabl e [place], Mrs. Chowdhury Hailee Primary Care Unavailabl e [place], Mrs. Trenton Bowman Referring Unavailabl e [place], Mrs. Trenton Bowman Attending Unavailabl e [place], Mrs. Trenton Bowman Referring Unavailabl e [place], Mrs. Trenton Bowman Primary Care Unavailabl e [place], Mrs. Trenton Bowman Attending Unavailabl e [place], Mrs. Trenton Bowman Primary Care Unavailabl e [place], Dr. Huber Referring Unavailabl e [place] Gh[place], Dr. Huber Attending Unavailabl e [place], Mrs. Trenton Bowman Primary Care Unavailabl e LeMasters, Rodrigo Jackson Referring Unavailabl e Abou Ghcristinoda, Dr. Huber Attending Unavailabl e [place], Mrs. Trenton Bowman Primary Care Unavailabl e Bermudez, Isael Archibald Attending Unavailable [place], Mrs. Trenton Bowman Primary Care Unavailabl e BILDERBACK, JIM ADAN Attending Unavailable LEMASTERS, DO RODRIGO MAST Attending Unava ilable [place], Mrs. Trenton Bowman Primary Care Unavailabl e [place], Mrs. Trenton Bowman Primary Care Unavailabl e [place] Ghay[place], Dr. Huber Admitting Unavailabl e Ab[place] Ghayda, Dr. Huber Attending Unavailabl e Abou Ghayda, Dr. Huber Referring Unavailabl e [place], Mrs. Trenton Bowman Primary Care Unavailabl e Michael, Dr. Cherry Coleman Attending Unavailabl e [place], Dr. Cherry Coleman Referring Unavailabl e [place], Mrs. Trenton Jeann Attending Unavailabl e [place], Mrs. Chowdhury Hailee Admitting Unavailabl e [place], Mrs. Chowdhury Hailee Primary Care Unavailabl e [place], Mrs. Trenton Jeann Attending Unavailabl e [place], Mrs. Chowdhury Hailee Admitting Unavailabl e [place], Mrs. Trenton Jeann Primary Care Unavailabl e [place], Mrs. Trenton Jeann Attending Unavailabl e [place], Mrs. Trenton Jeann Admitting Unavailabl e [place], Mrs. Trenton Jeann Primary Care Unavailabl e [place], Mrs. Chowdhury Hailee Primary Care Unavailabl e [place], Dr. Hartley Admitting Unavailable [place], Dr. Hartley Attending Unavailable [place], Mrs. Trenton Jeann Referring Unavailabl e [place], Mrs. Trenton Bowman Attending Unavailabl e [place], Mrs. Trenton Bowman Admitting Unavailabl e [place], Mrs. Trenton Bowman Primary Care Unavailabl e [place], Mrs. Trenton Bowman Attending Unavailabl e [place], Mrs. Trenton Bowman Admitting Unavailabl e [place], Mrs. Trenton Bowman Primary Care Unavailabl e [place], Mrs. Trenton Bowman Primary Care Unavailabl e MD ARUN BRAUN Attending Unavailable Donavan Juan Attending Unavailable MD ARUN BRAUN Admitting Unavailable Nichole Chopra, Dr. Huber Referring Unavailabl e [place], Mrs. Trenton Bowman Primary Care Unavailabl e Unavailable Primary Care Provider Unavailabl e [place] 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 SECURITY, Javier Primary Care Provider [place] 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 SECURITY, Javier Primary Care Provider KNOBLE, JAVIER Primary Care Unavailable Jolene Berry Referring Unavailable Jolene Berry Attending Unavailable [place], Javier Primary Care Unavailable Jocelyn Yang Attending Unavailable [place], Javier Primary Care Unavailable NEVIKKI DE Attending Unavail able KNOBLE, JAVIER Primary Care Unavailable NEYVIKKI SAMANIEGO Referring Unavail able KNOBLE, JAVIER Primary Care Unavailable NEYHARMARK CLINERE Referring Unavail able KNOBLE, JAVIER Primary Care Unavailable JOLENE OZUNA Attending Unavailable BRITTANY SRIDEVI A Referring Unavailable KNOBLE, JAVIER Primary Care Unavailable NEVIKKI DE Attending Unavail able KNOBLE, JAVIER Primary Care Unavailable MACEDO, WILLIAM Referring Unavailable KNOBLE, JAVIER Primary Care Unavailable MACEDO, WILLIAM Referring Unavailable KNOBLE, JAVIER Primary Care Unavailable MACEDO, WILLIAM Attending Unavailable MARIANO MADRID Attending Unavailable MACEDO, WILLIAM Referring Unavailable KNOBLE, JAVIER Primary Care Unavailable KNOBLE, JAVIER Primary Care Unavailable KNOBLE, JAVIER Attending Unavailable SELF Referring Unavailable NEYHART LORI VIKKI Referring Unavail able KNOBLE, JAVIER Primary Care Unavailable MASCI, SRIDEVI A Attending Unavailable KNOBLE, JAVIER Primary Care Unavailable KNOBLE, JAVIER Primary Care Unavailable NEYRIST MARK SANDOVALRE Attending Unavail able KNOBLE, JAVIER Primary Care Unavailable JOHN LUQUE Referring Unavailable MASCI, SRIDEVI A Referring Unavailable KNOBLE, JAVIER Primary Care Unavailable MASCI, SRIDEVI A Referring Unavailable KNOBLE, JAVIER Primary Care Unavailable MASCI, SRIDEVI A Referring Unavailable KNOBLE, JAVIER Primary Care Unavailable KNOBLE, JAVIER Primary Care Unavailable MASCI, SRIDEVI A Referring Unavailable NEYHART SANDOVAL, VIKKI Referring Unavail able KNOBLE, JAVIER Primary Care Unavailable KNOBLE, JAVIER Primary Care Unavailable NEMARK DERE Attending Unavail able KNOBLE, JAVIER Primary Care Unavailable JOLENE BERRY Attending Unavailable KNOBLE, JAVIER Primary Care Unavailable MACEDO, WILLIAM Attending Unavailable KNOBLE, JAVIER Primary Care Unavailable KNOBLE, JAVIER Primary Care Unavailable KNOBLE, JAVIER Primary Care Unavailable MACEDO, WILLIAM Referring Unavailable NEYHART SANDOVAL, VIKKI Referring Unavail able KNOBLE, JAVIER Primary Care Unavailable KNOBLE, JAVIER Primary Care Unavailable MACEDO, WILLIAM Referring Unavailable KNOBLE, JAVIER Primary Care Unavailable JOHN LUQUE Attending Unavailable KNOBLE, JAVIER Primary Care Unavailable KNOBLE, JAVIER Primary Care Unavailable KNOBLE, JAVIER Referring Unavailable NEYHART SANDOVAL, VIKKI Attending Unavail able KNOBLE, JAVIER Primary Care Unavailable Medications Current Medications Medication Drug Class(es) Dates Sig (Normalized) Sig (Original) acetaminophen 500 mg oral tablet (20 sources) take 2 tablets by mouth every eight hours as needed acetaminophen (TYLENOL EXTRA STRENGTH) 500 mg tablet Take 1,000 mg by mouth every 8 hours as needed. Active amoxicillin 875 mg oral tablet (1 source) Penicillin-class Antibacterial Start: 12-14-2020 End: 12-23-2020 take 1 tablet by mouth twice daily amoxicillin 875 mg oral tablet ; 1 tab(s) orally 2 times a day Quantity: 20 Refills: 0 Ordered: 14-Dec-2020 Nuris Cabrera Start: 14-Dec-2020 End: 23-Dec-2020 Generic Substitution Allowed Comments: Finish all this medication unless otherwise directed by prescriber. Comment on above: Finish all this medi cation unless otherwise directed by prescriber. ascorbic acid 250 mg / folic acid 1 mg / iron carbonyl 100 mg / vitamin b12 0.025 mg oral tablet (1 source) Vitamin B12, Vitamin C take 1 tablet by mouth twice daily Iron 100 Plus oral tablet ; 1 tab(s) orally 2 times a day Quantity: 0 Refills: 0 Ordered: 20-Nov-2021 Denise Peterson Generic Substitution Allowed busPIRone hydrochloride 15 mg oral tablet (20 sources) Start: 12-21-2024 take 1 tablet by mouth three times daily busPIRone (BUSPAR) 15 mg tablet Indications: CHARLINE (generalized anxiety disorder) Take 1 tablet by mouth three times a day. 270 tablet 12/21/2024 Active Start: 08-17-2024 End: 12-14-2024 take 1 tablet by mouth three times daily busPIRone (BUSPAR) 15 mg tablet Indications: CHARLINE (generalized anxiety disorder) Take 1 tablet by mouth three times a day. 270 tablet 08/17/2024 12/14/2024 Discontinued Start: 09-23-2023 End: 08-15-2024 take 1 tablet by mouth three times daily busPIRone (BUSPAR) 15 mg tablet Indications: CHARLINE (generalized anxiety disorder) Take 1 tablet by mouth three times a day. 270 tablet 05/19/2024 08/15/2024 Discontinued Start: 08-26-2023 End: 09-23-2023 take 1 tablet by mouth three times daily busPIRone (BUSPAR) 10 mg tablet Indications: CHARLINE (generalized anxiety disorder) TAKE 1 TABLET BY MOUTH THREE TIMES A DAY 270 tablet 1 09/17/2023 09/23/2023 Discontinued Start: 10-03-2021 take 1 tablet by olaf th in the morning, then take 2 tablets by mouth at bedtime busPIRone HCl - 5 MG Oral Tablet Take 1 tablet in AM, and take 2 tablets at bedtime Quantity: 90 Refills: 5 Ordered: 26-Oct-2021 Trenton Simon Start : 03-Oct-2021 Active take 2 tablets by mo uth once daily in the evening busPIRone 5 mg oral tablet ; 2 tab(s) orally once a day (in the evening) Quantity: 0 Refills: 0 Ordered: 20-Nov-2021 Denise Peterson Generic Substitution Allowed Comment on above: Take 1 tablet by olaf th three times a day. cholecalciferol 1.25 mg oral capsule (20 sources) Vitamin D Start: End: take 1 capsule by mouth every week cholecalciferol, Vitamin D3, (VITAMIN D3) 1,250 mcg (50,000 unit) cap capsule Indications: Malaise and fatigue , Vitamin D deficiency TAKE 1 CAPSULE BY MOUTH ONE TIME A WEEK. 12 capsule 1 05/04/2024 Active cholecalciferol, vitamin D3, (VITAMIN D3 ORAL) (20 sources) take 1 tablet by mouth once daily cholecalciferol, vitamin D3, (VITAMIN D3 ORAL) Take 1 tablet by mouth once daily. Active cholecalciferol, vitamin D3, (VITAMIN D3 ORAL) Take by mouth. Active CPAP/BIPAP/OTHER (11 sources) Start: 07-06-2024 End: 11-21-2051 CPAP/BIPAP/OTHER Indications: Obstructive sleep apnea , Generalized anxiety disorder autoCPAP 5-[address] [facility] 1 Each 07/06/2024 11/21/2051 Active doxycycline hyclate 100 mg oral tablet (1 source) Tetracycline-cla ss Drug Start: 01-06-2024 End: 01-16-2024 take 1 tablet by mouth twice daily doxycycline (VIBRA-TABS) 100 mg tablet Indications: Pelvic pain in female Take 1 tablet by mouth two times a day for 10 days. 20 tablet 01/06/2024 01/16/2024 Active 0.4 ml enoxaparin sodium 100 mg/ml prefilled syringe (1 source) Low Molecular Weight Heparin enoxaparin (LOVENOX) 40 mg/0.4 mL Syrg Inject 40 mg under the skin daily . 0 Active 273 day ethinyl estradiol 0.310075 mg/hr / segesterone acetate 0.57634 mg/hr vaginal system (20 sources) Estrogen Start: 03-17-2024 End: 11-11-2025 segesterone ac-ethin estradiol (ANNOVERA) 0.15-0.013 mg/24 hour vaginal ring Insert 1 ring vaginally to remain in place for 24 days, then removed for 4 days and stored in case. One ring provides contraception for 13 cycles (1 year) 1 each 11/11/2024 11/11/2025 Active fluconazole 200 mg oral tablet (8 sources) Azole Antifungal Start: 08-30-2021 End: 08-31-2021 take 1 tablet by mouth once daily fluconazole 200 mg oral tablet ; 1 tab(s) orally once a day Quantity: 2 Refills: 0 Ordered: 30-Aug-2021 Inocencia Angel Start: 30-Aug-2021 End: 31-Aug-2021 Generic Substitution Allowed Comments: Do not take this drug if you are .Finish all this medication unless otherwise directed by prescriber. Start: 08-27-2021 End: 08-30-2021 take 1 tablet by mouth every twenty-four hours fluconazole 200 mg oral tablet ; 1 tab(s) orally every 24 hours Quantity: 4 Refills: 0 Ordered: 27-Aug-2021 Alan Draper Start: 27-Aug-2021 End: 30-Aug-2021 Status: Other Generic Substitution Allowed Comment on above: Do not take this ruperto g if you are .Finish all this medication unless otherwise directed by prescriber. FLUoxetine 20 mg oral capsule (20 sources) Serotonin Reuptake Inhibitor Start: take 1 capsule by mouth once daily FLUoxetine (PROZAC) 20 mg capsule Indications: CHARLINE (generalized anxiety disorder) Take 1 capsule by mouth once daily. 90 capsule 1 08/17/2024 Active Start: 08-26-2023 End: 08-15-2024 take 1 capsule by mouth once daily FLUoxetine (PROZAC) 20 mg capsule Indications: CHARLINE (generalized anxiety disorder) Take 1 capsule by mouth once daily. 90 capsule 1 02/20/2024 08/15/2024 Discontinued Start: 10-03-2021 take 2 capsules by m outh once daily FLUoxetine HCl - 20 MG Oral Capsule TAKE 2 CAPSULE Daily Quantity: 60 Refills: 5 Ordered: 18-Dec-2021 Trenton Simon Start : 03-Oct-2021 Active Start: 10-03-2021 take 1 capsule by mo uth once daily FLUoxetine HCl - 20 MG Oral Capsule TAKE 1 CAPSULE Daily Quantity: 30 Refills: 11 Ordered: 03-Nov-2021 Trenton Simon Start : 03-Oct-2021 Active Start: 10-03-2021 take 1 capsule by mo uth once daily FLUoxetine HCl - 10 MG Oral Capsule TAKE 1 CAPSULE BY MOUTH EVERY DAY Quantity: 30 Refills: 2 Ordered: 26-Oct-2021 Trenton Simon Start : 03-Oct-2021 Active Start: 11-26-2019 End: 09-08-2021 take 1 capsule by mouth once daily FLUoxetine HCl - 10 MG Oral Capsule TAKE 1 CAPSULE Daily Quantity: 30 Refills: 1 Ordered: 26-Nov-2019 Jeni Virk Start : 26-Nov-2019 End : 08-Sep-2021 Complete Decreasing dose to 50mg daily Start: 10-29-2019 End: 09-08-2021 take 1 capsule by mouth once daily FLUoxetine HCl - 40 MG Oral Capsule TAKE 1 CAPSULE Daily Quantity: 30 Refills: 5 Ordered: 29-Oct-2019 Jeni Virk Start : 29-Oct-2019 End : 08-Sep-2021 Complete Start: 10-29-2019 End: 09-28-2020 FLUoxetine (PROZAC) 20 MG ca psule Take by mouth daily . 0 10/29/2019 09/28/2020 Discontinued take 1 tablet by olaf th once daily in the evening FLUoxetine 20 mg oral tablet ; 1 tab(s) orally once a day (in the evening) Quantity: 0 Refills: 0 Ordered: 20-Nov-2021 Denise Peterson Generic Substitution Allowed take 3 capsules by m outh once daily PROzac 20 mg oral capsule ; 60 milligram(s) orally once a day Quantity: 0 Refills: 0 Ordered: 17-Dec-2019 Mildred Munoz Status: Other Generic Substitution Allowed Comment on above: Take 1 capsule by mo uth once daily. hydrOXYzine hydrochloride 10 mg oral tablet (20 sources) Antihistamine Start: 08-26-19 take 1 tablet by mouth twice daily as needed hydrOXYzine HCl (ATARAX) 10 mg tablet Indications: CHARLINE (generalized anxiety disorder) Take 1 tablet by mouth two times a day as needed. 90 tablet 2 08/26/2023 Active Start: 04-10-2022 End: 08-26-2023 take 1 tablet by mouth every twelve hours hydrOXYzine HCl (ATARAX) 10 mg tablet Take 1 tablet by mouth every 12 hours. 0 04/10/2022 08/26/2023 Discontinued Start: 04-10-2022 take 1 tablet by olaf th twice daily as needed for anxiety hydrOXYzine HCl - 10 MG Oral Tablet TAKE 1 TABLET Twice daily PRN breakthrough anxiety Quantity: 45 Refills: 1 Ordered: 10-Apr-2022 Abram TEXTILE CONVERSION MANAGERTrenton PACE Start : 10-Apr-2022 Active Comment on above: Take 1 tablet by olaf th two times a day as needed. Take 1 tablet by olaf th every 12 hours. ibuprofen 800 mg oral tablet (5 sources) Nonsteroidal Anti-inflammatory Drug Start: 12-21-2019 End: 12-31-2019 take 1 tablet by mouth every eight hours as needed for pain ibuprofen (ADVIL,MOTRIN) 800 MG tablet Indications: Injury, ankle, right, initial encounter , Acute right ankle pain Take 1 (one) tablet (800 mg total) by mouth every 8 (eight) hours as needed for pain . 30 tablet 0 12/21/2019 12/31/2019 Active End: 03-02-2024 take 2 tablets by mouth every eight hours as needed ibuprofen (MOTRIN) 200 mg tablet Take 400 mg by mouth every 8 hours as needed. 03/02/2024 Discontinued take 2 tablets by mo uth every six hours as needed ibuprofen 200 mg oral tablet ; 2 tab(s) orally every 6 hours, As Needed - for pain Quantity: 0 Refills: 0 Ordered: 30-Aug-2021 Darrel Sheikh Generic Substitution Allowed levothyroxine sodium 0.05 mg oral tablet (20 sources) l-Thyroxine Start: 08-17-2024 End: 02-13-2025 take 1 tablet by mouth once daily levothyroxine (SYNTHROID) 50 mcg tablet Indications: Hypothyroidism, acquired Take 1 tablet by mouth once daily. 90 tablet 1 08/17/2024 02/13/2025 Active Start: 10-20-2021 End: 06-09-2024 take 1 tablet by mouth once daily levothyroxine (SYNTHROID) 50 mcg tablet Indications: Hypothyroidism, acquired Take 1 tablet by mouth once daily. 90 tablet 1 12/12/2023 Active Start: 10-20-2021 take 1 tablet by olaf th once daily Levothyroxine Sodium 25 MCG Oral Tablet TAKE 1 TABLET BY MOUTH EVERY DAY Quantity: 30 Refills: 1 Ordered: 15-Nov-2021 Cherry Webb DO Start : 20-Oct-2021 Active take 1 tablet by olaf th once daily in the morning levothyroxine 25 mcg (0.025 mg) oral tablet ; 1 tab(s) orally once a day (in the morning) Quantity: 0 Refills: 0 Ordered: 20-Nov-2021 Denise Peterson Generic Substitution Allowed Comment on above: Take 1 tablet by olaf once daily. megestrol acetate 20 mg oral tablet (6 sources) Progestin Start: 12-04-2023 End: 12-14-2023 take 1 tablet by mouth twice daily megestrol (MEGACE) 20 mg tablet Take 1 tablet (20 mg) by mouth two times a day for 10 days. 20 tablet 1 12/04/2023 Active Start: 12-04-2023 End: 12-04-2023 take 1 tablet by mouth once megestrol (MEGACE) 40 mg t ablet Take 1 tablet (40 mg) by mouth one time only for 1 dose. 1 tablet 0 12/04/2023 12/04/2023 Discontinued melatonin 10 mg oral tablet (7 sources) take 1-2 tablets by mouth once daily at bedtime Melatonin 10 mg oral tablet ; 1-2 tab(s) orally once a day (at bedtime) Quantity: 0 Refills: 0 Ordered: 20-Nov-2021 Denise Peterson Generic Substitution Allowed Melatonin 10 MG Oral Tablet Quantity: 0 Refills: 0 Ordered: 26-Oct-2019 DO Active meloxicam 15 mg oral tablet (1 source) Nonsteroidal Anti-inflammatory Drug take 1 tablet by mouth once daily meloxicam (MOBIC) 15 MG tablet Take 15 mg by mouth daily . 0 Active 24 hr metFORMIN hydrochloride 500 mg extended release oral tablet (20 sources) Biguanide Start: 05-20-19 End: 11-17-19 take 2 tablets by mouth twice daily metFORMIN ER (GLUCOPHAGE XR) 500 mg 24 hr tablet Indications: Insulin resistance Take 2 tablets by mouth two times a day. 360 tablet 1 05/20/2024 11/16/2024 Active Start: 04-16-2024 End: 06-15-2024 take 2 tablets by mouth once daily at dinner metFORMIN ER (GLUCOPHAGE XR) 500 mg 24 hr tablet Indications: Insulin resistance Take 2 tablets by mouth daily with dinner. 60 tablet 1 04/16/2024 05/20/2024 Discontinued metroNIDAZOLE 500 mg oral tablet (8 sources) Nitroimidazole Antimicrobial Start: 01-03-2024 End: 01-10-2024 take 1 tablet by mouth twice daily metroNIDAZOLE (FLAGYL) 500 mg tablet Indications: Bacterial vaginosis Take 1 tablet by mouth two times a day for 7 days. 14 tablet 01/03/2024 01/10/2024 Active Start: 11-06-2023 End: 11-13-2023 take 1 tablet by mouth twice daily metroNIDAZOLE (FLAGYL) 500 mg tablet Indications: Bacterial vaginosis Take 1 tablet by mouth two times a day for 7 days. 14 tablet 0 11/06/2023 11/13/2023 Discontinued Start: 12-14-2020 End: 12-23-2020 take 1 tablet by mouth every six hours metroNIDAZOLE 500 mg oral tablet ; 1 tab(s) orally every 6 hours Quantity: 40 Refills: 0 Ordered: 14-Dec-2020 Nuris Cabrera Start: 14-Dec-2020 End: 23-Dec-2020 Generic Substitution Allowed Comments: Do not drink alcoholic beverages when taking this medication.Finish all this medication unless otherwise directed by prescriber.May discolor urine or feces. Comment on above: Do not drink alcohol ic beverages when taking this medication.Finish all this medication unless otherwise directed by prescriber.May discolor urine or feces. oseltamivir 75 mg oral capsule (2 sources) Neuraminidase Inhibitor Start: End: take 1 capsule by mouth twice daily oseltamivir (TAMIFLU) 75 mg capsule Indications: Influenza A Take 1 capsule by mouth two times a day for 5 days. 10 capsule 06/23/2024 06/28/2024 Active Sprintec 0.25 mg-35 mcg oral tablet (1 source) take 1 tablet by mouth once daily Sprintec 0.25 mg-35 mcg oral tablet ; 1 tab(s) orally once a day Quantity: 0 Refills: 0 Ordered: 20-Nov-2021 Denise Peterson Generic Substitution Allowed tirzepatide, weight loss (ZEPBOUND) 2.5 mg/0.5 mL pen injector (20 sources) Start: End: tirzepatide, weight loss (ZEPBOUND) 2.5 mg/0.5 mL pen injector Indications: JOSEPH (obstructive sleep apnea) , Class 3 severe obesity with body mass index (BMI) of 50.0 to 59.9 in adult, unspecified obesity type, unspecified whether serious comorbidity present Inject 2.5 mg subcutaneously one time a week. 2 mL 08/31/2024 09/30/2024 Active Start: 06-04-2024 inject 2.5 mg by sub cutaneous injection every week tirzepatide, weight loss (ZEPBOUND) 2.5 mg/0.5 mL pen injector Indications: Observed sleep apnea Inject 2.5 mg subcutaneously one time a week. 2 mL 06/04/2024 Active Start: 06-04-2024 End: 07-04-2024 inject 2.5 mg by subcutaneous injection every week tirzepatide, weight loss (ZEPBOUND) 2.5 mg/0.5 mL pen injector Indications: Observed sleep apnea Inject 2.5 mg subcutaneously one time a week. 2 mL 06/04/2024 07/04/2024 Active Start: 04-10-2024 End: 06-04-2024 tirzepatide, weight loss (ZEPBOUND) 2.5 mg/0.5 mL pen injector Indications: Class 3 severe obesity with body mass index (BMI) of 50.0 to 59.9 in adult, unspecified obesity type, unspecified whether serious comorbidity present (HCC) Inject 2.5 mg subcutaneously one time a week. 2 mL 04/10/2024 06/04/2024 Discontinued Start: 04-10-2024 tirzepatide, w eight loss (ZEPBOUND) 2.5 mg/0.5 mL pen injector Indications: Class 3 severe obesity with body mass index (BMI) of 50.0 to 59.9 in adult, unspecified obesity type, unspecified whether serious comorbidity present (HCC) Inject 2.5 mg subcutaneously one time a week. 2 mL 04/10/2024 Active Start: 04-10-2024 End: 05-10-2024 tirzepatide, weight loss (ZEPBOUND) 2.5 mg/0.5 mL pen injector Indications: Class 3 severe obesity with body mass index (BMI) of 50.0 to 59.9 in adult, unspecified obesity type, unspecified whether serious comorbidity present (HCC) Inject 2.5 mg subcutaneously one time a week. 2 mL 04/10/2024 05/10/2024 Active tirzepatide, weight loss (ZEPBOUND) 5 mg/0.5 mL solution (3 sources) Start: 09-29-2024 inject 0.5 mL by subcutaneous injection every week tirzepatide, weight loss (ZEPBOUND) 5 mg/0.5 mL solution Indications: JOSEPH (obstructive sleep apnea) , Class 3 severe obesity with body mass index (BMI) of 45.0 to 49.9 in adult, unspecified obesity type, unspecified whether serious comorbidity present (HCC) Inject 0.5 mL subcutaneously one time a week for 28 days. Patient should start on September 29, 2024. 2 mL 09/29/2024 Active Start: 09-29-2024 End: 10-27-2024 inject 0.5 mL by subcutaneous injection every week tirzepatide, weight loss (ZEPBOUND) 5 mg/0.5 mL solution Indications: JOSEPH (obstructive sleep apnea) , Class 3 severe obesity with body mass index (BMI) of 45.0 to 49.9 in adult, unspecified obesity type, unspecified whether serious comorbidity present Inject 0.5 mL subcutaneously one time a week for 28 days. Patient should start on September 29, 2024. 2 mL 09/29/2024 10/27/2024 Active tirzepatide, weight loss (ZEPBOUND) 7.5 mg/0.5 mL pen injector (2 sources) Start: 10-27-2024 tirzepatide, w eight loss (ZEPBOUND) 7.5 mg/0.5 mL pen injector Indications: JOSEPH (obstructive sleep apnea) , Class 3 severe obesity with body mass index (BMI) of 45.0 to 49.9 in adult, unspecified obesity type, unspecified whether serious comorbidity present (HCC) Inject 7.5 mg subcutaneously one time a week for 28 days. Patient should start on October 27, 2024. 2 mL 10/27/2024 Active Start: 10-27-2024 End: 11-24-2024 tirzepatide, weight loss (ZE PBOUND) 7.5 mg/0.5 mL pen injector Indications: JOSEPH (obstructive sleep apnea) , Class 3 severe obesity with body mass index (BMI) of 45.0 to 49.9 in adult, unspecified obesity type, unspecified whether serious comorbidity present (HCC) Inject 7.5 mg subcutaneously one time a week for 28 days. Patient should start on October 27, 2024. 2 mL 10/27/2024 11/24/2024 Active traMADol hydrochloride 50 mg oral tablet (2 sources) Opioid Agonist Start: 08-27-2021 take 1 tablet by mouth every six hours as needed traMADol 50 mg oral tablet ; 1 tab(s) orally every 6 hours, As needed, Pain - Mod (4-6) Quantity: 0 Refills: 0 Ordered: 27-Aug-2021 Alan Draper Priya Start: 27-Aug-2021 Generic Substitution Allowed Completed/Discontinued Medications Medication Drug Class(es) Dates Sig (Normalized) Sig (Original) acetaminophen 325 mg / oxyCODONE hydrochloride 5 mg oral tablet (2 sources) Opioid Agonist Start: 08-29-2021 End: 08-31-2021 take 1 tablet by mouth every eight hours oxycodone-acetamino phen 5 mg-325 mg oral tablet ; 1 tab(s) orally every 8 hours Quantity: 9 Refills: 0 Ordered: 29-Aug-2021 Rodrigo Damian Start: 29-Aug-2021 End: 31-Aug-2021 Generic Substitution Allowed Comments: Caution federal law prohibits the transfer of this drug to any person other than the person for whom it was prescribed.May cause drowsiness. Alcohol may intensify this effect. Use care when operating dangerous machinery.This prescription cannot be refilled.This product contains acetaminophen. Do not use with any other product containing acetaminophen to prevent possible liver damage.Using more of this medication than prescribed may cause serious breathing problems. Start: 09-28-2020 End: 09-28-2020 oxyCODONE-acetaminophen (PER COCET) 5-325 mg per tablet 2 tablet Comment on above: Caution federal law prohibits the transfer of this drug to any person other than the person for whom it was prescribed.May cause drowsiness. Alcohol may intensify this effect. Use care when operating dangerous machinery.This prescription cannot be refilled.This product contains acetaminophen. Do not use with any other product containing acetaminophen to prevent possible liver damage.Using more of this medication than prescribed may cause serious breathing problems. calcium chloride 0.0014 meq/ml / potassium chloride 0.004 meq/ml / sodium chloride 0.103 meq/ml / sodium lactate 0.028 meq/ml injectable solution (2 sources) Start: 09-29-19 End: 09-29-19 take 100 mL intravenously every hour 100 mL/hr, Intravenous, Continuous, Starting on Sat09/28/20 at 1015, PACU (only) Start: 09-28-2020 End: 09-28-2020 lactated Ringers infusion ciprofloxacin 500 mg oral tablet (2 sources) Quinolone Antimicrobial Start: 08-29-2021 End: 09-04-2021 take 1 tablet by mouth every twelve hours Cipro 500 mg oral tablet ; 1 tab(s) orally every 12 hours Quantity: 14 Refills: 0 Ordered: 29-Aug-2021 Rodrigo Damian Start: 29-Aug-2021 End: 04-Sep-2021 Status: Other Generic Substitution Allowed Comments: Avoid prolonged or excessive exposure to direct and/or artificial sunlight while taking this medication.Check with your doctor before becoming .Do not take dairy products, antacids, or iron preparations within one hour of this medication.Finish all this medication unless otherwise directed by prescriber.Medication should be taken with plenty of water. Comment on above: Avoid prolonged or e xcessive exposure to direct and/or artificial sunlight while taking this medication.Check with your doctor before becoming .Do not take dairy products, antacids, or iron preparations within one hour of this medication.Finish all this medication unless otherwise directed by prescriber.Medication should be taken with plenty of water. estradiol 1 mg oral tablet (5 sources) Estrogen Start: 02-19-2024 End: 03-02-2024 take 1 tablet by mouth once daily estradiol (ESTRACE) 1 mg tablet Take 1 tablet by mouth once daily. 10 tablet 02/19/2024 03/02/2024 Discontinued 21 day ethinyl estradiol 0.248300 mg/hr / etonogestrel 0.005 mg/hr vaginal system (9 sources) Progestin, Estrogen Start: 10-26-2019 Etonogestrel-Ethinyl Estradiol 0.12-0.015 MG/24HR Vaginal Ring INSERT 1 RING VAGINALLY FOR 3 WEEKS THEN 1 WEEK OFF. Quantity: 3 Refills: 3 Ordered: 26-Oct-2019 Jeni Virk Start : 26-Oct-2019 Active Start: 10-26-2019 End: 09-14-2020 NuvaRing 0.12-0.015 mg/24 hr vaginal ring Insert 1 each into the vagina DIRECTED, REMOVE AFTER 3 WEEKS & WAIT 7 DAYS BEFORE INSERTING A NEW RING . 0 10/26/2019 09/14/2020 Discontinued NuvaRing 0.120 m g-0.015 mg/24 hours vaginal ring ; 1 each vaginal every 4 weeks as directed Quantity: 0 Refills: 0 Ordered: 17-Dec-2019 AlexanderMildred Status: Other Generic Substitution Allowed Ethinyl Estradiol / norgestimate (4 sources) Progestin, Estrogen Start: 11-30-2014 End: 09-14-2020 take 1 tablet by mouth once daily norgestimate-ethinyl estradiol (SPRINTEC, 28,) 0.25-35 mg-mcg per tablet TAKE ONE TABLET BY MOUTH ONE TIME DAILY 0 11/30/2014 09/14/2020 Discontinued Start: 11-30-2014 take 1 tablet by olaf th once daily norgestimate-ethinyl estradiol (SPRINTEC, 28,) 0.25-35 mg-mcg per tablet TAKE ONE TABLET BY MOUTH ONE TIME DAILY 0 11/30/2014 Active Etonogestrel-Ethinyl Estradiol 0.12-0.015 MG/24HR Vaginal Ring (1 source) Start: 10-26-2019 End: 09-08-2021 Etonogestrel-Ethinyl Estradiol 0.12-0.015 MG/24HR Vaginal Ring INSERT 1 RING VAGINALLY FOR 3 WEEKS THEN 1 WEEK OFF. Quantity: 3 Refills: 3 Ordered: 26-Oct-2019 Jeni Virk Start : 26-Oct-2019 End : 08-Sep-2021 Complete 1 ml fentaNYL 0.05 mg/ml injection (1 source) Opioid Agonist Start: 09-28-2020 End: 09-28-2020 25 mcg, Intravenous, Every 5 min PRN, Pain, Starting on Sat09/28/20 at 0915, For 4 doses, PACU (only) [] Do not give more than 100 mcg while in PACU. ferrous sulfate 325 mg oral tablet (20 sources) Start: 01-11-2022 take 1 tablet by mouth twice daily Ferrous Sulfate 325 (65 Fe) MG Oral Tablet Take 1 tablet twice a day Quantity: 60 Refills: 5 Ordered: 11-Jan-2022 Trenton Simon Start : 11-Jan-2022 Active Start: 12-19-2021 take 1 tablet by olaf th twice daily High Potency Iron 65 MG Oral Tablet Take 1 tablet twice daily Quantity: 60 Refills: 0 Ordered: 19-Dec-2021 Trenton Simon Start : 19-Dec-2021 Active take [address] [facility] every other day ferrous sulfate (IRON ORAL) Take 2 tablets by mouth every other day. Active 1 ml HYDROmorphone hydrochloride 1 mg/ml injection (1 source) Opioid Agonist Start: 09-28-2020 End: 09-28-2020 0.5 mg, Intravenous, Every 5 min PRN, Pain, Starting on Sat09/28/20 at 0915, For 6 doses, PACU (only) [] Give if fentanyl not effective or not ordered. [] Do not give more than 3 mg total. Iron (20 sources) Iron TABS Take 1 tablet twice daily Quantity: 0 Refills: 0 Ordered: 18-Dec-2021 DO Active Iron TABS Quanti ty: 0 Refills: 0 Ordered: 26-Oct-2019 DO Active 10 ml iron sucrose 20 mg/ml injection (5 sources) Parenteral Iron Replacement Start: 06-19-2024 End: 06-19-2024 200 mg, INTRAVENOUS, ONCE, 1 dose, On Sat06/19/24 at 1430, Please conduct a 30 minute post dose observation. Start: 06-17-2024 End: 06-17-2024 200 mg, INTRAVENOUS, ONCE, 1 dose, On Sat06/17/24 at 1530, Please conduct a 30 minute post dose observation. Start: 06-15-2024 End: 06-15-2024 200 mg, INTRAVENOUS, ONCE, 1 dose, On Sat06/15/24 at 0830, Please conduct a 30 minute post dose observation. Start: 06-12-2024 End: 06-12-2024 200 mg, INTRAVENOUS, ONCE, 1 dose, On Sat06/12/24 at 0930, Please conduct a 30 minute post dose observation. Start: 06-10-2024 End: 06-10-2024 200 mg, INTRAVENOUS, ONCE, 1 dose, On Sat06/10/24 at 1530, Please conduct a 30 minute post dose observation. 4 ml labetalol hydrochloride 5 mg/ml cartridge (1 source) beta-Adrenergic Luis Start: 09-28-2020 End: 09-28-2020 5 mg, Intravenous, Every 5 min PRN, SBP greater than 180 or DBP greater than 120, Starting on Sat09/28/20 at 0915, For 4 doses, PACU (only) [] Do not give more than 20 mg total. [] Hold for HR less than 50. levonorgestrel 0.115519 mg/hr intrauterine system (19 sources) Progestin, Progestin-containin g Intrauterine Device Start: 12-20-2023 End: 03-17-2024 levonorgestrel (LILETTA) 20.4 mcg/24 hr (8 yrs) 52 mg IUD 1 Each by INTRAUTERINE route as directed. 1 Each 12/20/2023 03/17/2024 Discontinued Levonorgestrel-Eth inyl Estrad 0.1-20 MG-MCG Oral Tablet (3 sources) Start: 10-04-2021 take 4 tablets by mouth once daily, then take 3 tablets by mouth once daily Levonorgestrel-Et hinyl Estrad 0.1-20 MG-MCG Oral Tablet Take 4 tablets a day for 4 days, then take 3 tablets a day for 4 days Quantity: 1 Refills: 0 Ordered: 04-Oct-2021 Trenton Simon Start : 04-Oct-2021 Active lisinopril 5 mg oral tablet (13 sources) Angiotensin Converting Enzyme Inhibitor Start: 11-21-2021 take 1 tablet by mouth once daily Lisinopril 5 MG Oral Tablet TAKE 1 TABLET DAILY. Quantity: 30 Refills: 5 Ordered: 21-Nov-2021 Trenton Simon Start : 21-Nov-2021 Active meclizine hydrochloride 12.5 mg oral tablet (2 sources) Antiemetic Start: 12-18-2019 End: 09-08-2021 Meclizine HCl - 12.5 MG Oral Tablet 1-2 tablets every 6-8 hours as needed for dizzyness Quantity: 30 Refills: 0 Ordered: 18-Dec-2019 Jeni Virk Start : 18-Dec-2019 End : 08-Sep-2021 Complete Meperidine (1 source) Opioid Agonist Start: 09-28-2020 End: 09-28-2020 12.5 mg, Intravenous, Every 5 min PRN, shivering, Starting on Sat09/28/20 at 0915, For 2 doses, PACU (only) Do not give more than 25 mg total. RESTRICTED to use in rigors OR pain management in patients with a documented opioid allergy. Please select this medication s indication. Rigors 1 ml morphine sulfate 4 mg/ml injection (1 source) Opioid Agonist Start: 09-28-2020 End: 09-28-2020 take 3-5 mg intravenously every three hours as needed 3-5 mg, Intravenous, Every 3 hours PRN (may repeat), moderate to severe pain, Starting on Sat09/28/20 at 0934 [] Initiate with 3 mg IV every 3 hours prn moderate to severe pain. [] For unrelieved pain, may repeat 3 mg IV dose within 30 minutes of initial dose. [] If pain is RELIEVED after repeat dose, change to 5 mg IV every 3 hours prn moderate to severe pain. [] If pain is UNrelieved after repeat dose, or patient requires dose reduction, call physician. [] If multiple routes are ordered for pain meds, it is recommended that oral be the first choice, IV the second choice, rectal the third choice, and IM the fourth choice. naloxone (NARCAN) injection 0.1 mg (2 sources) Start: 09-28-2020 End: 09-28-2020 naloxone (NARCAN) injection 0.1 mg Start: 09-28-2020 End: 09-28-2020 naloxone (NARCAN) injection 0.1 mg norethindrone acetate 5 mg o ral tablet (10 sources) Start: 11-13-2023 End: 12-02-2023 norethindrone (AYGESTIN) 5 m g tablet Take 1 tablet by mouth 3 times per day until bleeding stops. Then take daily for 3 days. 90 tablet 1 11/13/2023 12/02/2023 Discontinued Start: 11-04-2023 End: 11-13-2023 take 1 tablet by mouth every two hours, then take 4 tablets by mouth once daily, then take 1 tablet by mouth three times daily norethindrone (AYGESTIN) 5 mg tablet Take 1 tablet by mouth every 2 hours, up to 4 doses in one day. Then take 1 tablet by mouth 3 times per day. 90 tablet 1 11/04/2023 11/13/2023 Discontinued (Adjust Sig - Block E-Cancel) ondansetron 4 mg disintegrating oral tablet (8 sources) Serotonin-3 Receptor Antagonist Start: 11-03-2021 take 1 tablet by mouth twice daily Ondansetron 4 MG Oral Tablet Disintegrating Take 1 tablet twice daily Quantity: 6 Refills: 0 Ordered: 03-Nov-2021 Abram RICHARDSONTrenton Start : 03-Nov-2021 Active Start: 08-29-2021 take 1 tablet by olaf th three times daily ondansetron 4 mg oral tablet, disintegrating ; 1 tab(s) orally 3 times a day Quantity: 15 Refills: 0 Ordered: 29-Aug-2021 Rodrigo Damian Start: 29-Aug-2021 Generic Substitution Allowed Start: 09-28-2020 End: 09-28-2020 take 4 mg intravenously every twenty-four hours as needed for nausea and vomiting 4 mg, Intravenous, Once as needed, nausea, vomiting, Starting on Sat09/28/20 at 0915, For 1 dose, PACU (only) Administer first as needed for nausea/vomiting, or as directed by anesthesia predniSONE 10 mg oral tablet (4 sources) Start: 07-26-2020 take 4 tablets by mouth once daily at mealtime, then take 3 tablets by mouth once daily, then take 2 tablets by mouth once daily, then take 1 tablet by mouth once daily predniSONE 10 mg oral tablet ; Take 40 mg daily for 3 days, then take 30 mg daily for 3 days, then take 20 mg daily for 3 days, then take 10 mg daily for 3 days. Quantity: 30 Refills: 0 Ordered: 26-Jul-2020 Art Marc Start: 26-Jul-2020 Status: Other Generic Substitution Allowed Comments: It is very important that you take or use this exactly as directed. Do not skip doses or discontinue unless directed by your doctor.Obtain medical advice before taking any non-prescription drugs as some may affect the action of this medication.Take with food or milk. Comment on above: It is very important that you take or use this exactly as directed. Do not skip doses or discontinue unless directed by your doctor.Obtain medical advice before taking any non-prescription drugs as some may affect the action of this medication.Take with food or milk. 2 ml prochlorperazine 5 mg/ml injection (1 source) Phenothiazine Start: 09-28-2020 End: 09-28-2020 take 5 mg intravenously every twenty-four hours as needed for nausea 5 mg, Intravenous, Once as needed, nausea, Starting on Sat09/28/20 at 0915, For 1 dose, PACU (only) Adminis ter if ondansetron (Zofran), promethazine (Phenergan), and Metocolopramide (Reglan) ineffective or not ordered, or as directed by anesthesia, as needed for nausea/vomiting Sodium Chloride (1 source) Start: 09-28-2020 End: 09-28-2020 sodium chloride (PF) (NS) flush 5 mL Sprintec 28 0.25-35 MG-MCG Oral Tablet (20 sources) Start: 10-16-2021 take 1 tablet by mouth once daily, then take 2 tablets by mouth every week Sprintec 28 0.25-35 MG-MCG Oral Tablet TAKE 1 TABLET Daily Pt to skip every other placebo week. Quantity: 1 Refills: 11 Ordered: 16-Oct-2021 [id number] DO, Brett Start : 16-Oct-2021 Active Start: 10-16-2021 take 1 tablet by olaf th once daily, then take 2 tablets by mouth every week Sprintec 28 0.25-35 MG-MCG Oral Tablet TAKE 1 TABLET Daily Pt to skip every other placebo week. Quantity: 1 Refills: 11 Ordered: 16-Oct-2021 Cherry Webb DO Start : 16-Oct-2021 Active sulfamethoxazole 800 mg / trimethoprim 160 mg oral tablet (2 sources) Dihydrofolate Reductase Inhibitor Antibacterial, Sulfonamide Antimicrobial Start: 08-30-2021 End: 09-03-2021 take 1 tablet by mouth twice daily Bactrim DS 800 mg-160 mg oral tablet ; 1 tab(s) orally 2 times a day Quantity: 10 Refills: 0 Ordered: 30-Aug-2021 Inocencia Angel Start: 30-Aug-2021 End: 03-Sep-2021 Status: Discontinued Generic Substitution Allowed Comments: Avoid prolonged or excessive exposure to direct and/or artificial sunlight while taking this medication.Finish all this medication unless otherwise directed by prescriber.Medication should be taken with plenty of water. Comment on above: Avoid prolonged or e xcessive exposure to direct and/or artificial sunlight while taking this medication.Finish all this medication unless otherwise directed by prescriber.Medication should be taken with plenty of water. tirzepatide (MOUNJARO) 2.5 mg/0.5 mL pen injector (4 sources) Start: 03-03-2024 End: 03-17-2024 inject 2.5 mg by subcutaneous injection every week tirzepatide (MOUNJARO) 2.5 mg/0.5 mL pen injector Indications: Insulin resistance Inject 2.5 mg subcutaneously one time a week. 2 mL 03/03/2024 03/17/2024 Discontinued (Other) Start: 03-03-2024 End: 04-02-2024 inject 2.5 mg by subcutaneous injection every week tirzepatide (MOUNJARO) 2.5 mg/0.5 mL pen injector Indications: Insulin resistance Inject 2.5 mg subcutaneously one time a week. 2 mL 03/03/2024 04/02/2024 Active tranexamic acid 650 mg oral tablet (2 sources) Antifibrinolytic Agent Start: 12-02-2023 End: 12-07-2023 take 2 tablets by mouth every eight hours tranexamic acid (LYSTEDA) 650 mg tablet Take 2 tablets by mouth every 8 hours for 5 days. 30 tablet 0 12/02/2023 12/04/2023 Discontinued Problems Active Problems Problem Classification Problem Date Documented Da te Episodic/Chronic Abdominal pain (20 sources) Abdominal pain; Translations: [Abdominal pain, unspecified site] Onset: 08-31-2021 11-13-2023 Episodic Anxiety disorders (20 sources) Anxiety; Translations: [Anxiety disorder, unspecified] Onset: 09-14-2020 Chronic Cardiac dysrhythmias (2 sources) Tachycardia; Translations: [Tachycardia, unspecified] 10-22-2023 Episodic Conditions associated with dizziness or vertigo (20 sources) Lightheadedness; Translations: [Dizziness and giddiness] Onset: 11-20-2021 07-03-2023 Episodic Contraceptive and procreative management (20 sources) Patient encounter status; Translations: [Unspecified contraceptive management] 08-26-2023 Episodic Deficiency and other anemia (20 sources) Anemia due to blood loss; Translations: [Iron deficiency anemia secondary to blood loss (chronic)] Chronic Deficiency and other anemia (3 sources) Iron deficiency anemia secondary to blood loss (chronic); Translations: [Iron deficiency anemia secondary to blood loss (chronic)] Onset: 02-19-2022 Chronic Deficiency and other anemia (11 sources) Iron deficiency anemia due to blood loss; Translations: [Iron deficiency anemia secondary to blood loss (chronic)] 12-23-2023 Chronic Deficiency and other anemia (3 sources) Anemia; Translations: [Anemia, unspecified] 11-01-2020 Episodic Deficiency and other anemia (4 sources) Chronic anemia; Translations: [Anemia, unspecified] Episodic Deficiency and other anemia (3 sources) Nutritional anemia; Translations: [Other vitamin B12 deficiency anemias] 02-25-2024 Episodic Disorders of lipid metabolism (6 sources) Hypertriglyceridemia; Translations: [Pure hyperglyceridemia] Onset: 05-20-2024 03-02-2024 Chronic Essential hypertension (20 sources) Hypertensive disorder; Translations: [Unspecified essential hypertension] Onset: 09-01-2021 11-20-2021 Chronic Comment on above: HYPERTENSION Genitourinary symptoms and ill-defined conditions (20 sources) Retention of urine; Translations: [Other symptoms involving urinary system] Episodic Immunizations and screening for infectious disease (8 sources) Contact with and (suspected) exposure to other viral communicable diseases; Translations: [Contact with or exposure to other viral diseases] Onset: 11-11-2024 Episodic Inflammatory diseases of female pelvic organs (2 sources) Bacterial vaginosis; Translations: [Acute vaginitis] 11-06-2023 Episodic Influenza (1 source) Influenza due to Influenza A virus; Translations: [Influenza due to other identified influenza virus with other respiratory manifestations] 06-23-2024 Episodic Menstrual disorders (20 sources) Irregular periods; Translations: [Irregular menstrual cycle] Onset: 03-10-2024 08-26-2023 Chronic Miscellaneous mental health disorders (4 sources) Chronic insomnia; Translations: [Psychophysiologic insomnia] Onset: 07-06-2024 07-07-2024 Chronic Nausea and vomiting (20 sources) Nausea; Translations: [Nausea alone] Onset: 08-29-2021 11-22-2023 Episodic Nonspecific chest pain (2 sources) Chest pain; Translations: [Chest pain, unspecified] 11-20-2021 Episodic Nutritional deficiencies (6 sources) Vitamin D deficiency; Translations: [Vitamin D deficiency, unspecified] Onset: 05-20-2024 04-10-2024 Chronic Nutritional deficiencies (3 sources) Iron deficiency; Translations: [Iron deficiency] Onset: 02-19-2022 12-05-2023 Episodic Other aftercare (2 sources) Other intermediate project manager (current) drug therapy; Translations: [Other intermediate project manager (current) drug therapy] Onset: 11-20-2021 Episodic Other bone disease and musculoskeletal deformities (1 source) Posterior calcaneal exostosis; Translations: [Juvenile osteochondrosis of tarsus, right ankle] 11-01-2020 Chronic Other circulatory disease (20 sources) Transient hypertension; Translations: [Elevated blood pressure reading without diagnosis of hypertension] Episodic Other circulatory disease (3 sources) Elevated blood-pressure reading without diagnosis of hypertension; Translations: [Elevated blood-pressure reading, without diagnosis of hypertension] 05-20-2024 Episodic Other connective tissue disease (6 sources) Bone spur of right foot; Translations: [Other enthesopathy of right foot and ankle] Onset: 09-14-2020 Episodic Other connective tissue disease (2 sources) Right achilles tendonitis; Translations: [Achilles tendinitis, right leg] Episodic Other connective tissue disease (1 source) Right achilles tendonitis; Translations: [Tendonitis, Achilles, right] Other female genital disorders (20 sources) Abnormal uterine bleeding; Translations: [Unspecified disorders of menstruation and other abnormal bleeding from female genital tract] 11-04-2023 Chronic Other female genital disorders (7 sources) Abnormal uterine and vaginal bleeding, unspecified; Translations: [Abnormal uterine and vaginal bleeding, unspecified] Onset: 10-20-2021 Chronic Other female genital disorders (1 source) Polyp of corpus uteri; Translations: [Polyp of corpus uteri] 12-05-2023 Episodic Other gastrointestinal disorders (20 sources) Malabsorption - iron; Translations: [Intestinal malabsorption, unspecified] Onset: 06-03-2024 06-03-2024 Chronic Other gastrointestinal disorders (2 sources) Intestinal malabsorption, unspecified; 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)] Onset: 06-03-2024 Chronic Other gastrointestinal disorders (1 source) Diarrhea, unspecified; Translations: [Diarrhea, unspecified type] Onset: 02-03-2025 Episodic Other gastrointestinal disorders (1 source) Change in bowel habit; Translations: [Bowel habit changes] Onset: 02-02-2025 Episodic Other hematologic conditions (1 source) History of anemia vitamin B12 deficient; Translations: [Personal history of diseases of the blood and blood-forming organs and certain disorders involving the immune mechanism] 06-03-2024 Episodic Other hereditary and degenerative nervous system conditions (14 sources) Restless legs; Translations: [Restless legs syndrome] Onset: 07-06-2024 07-06-2024 Chronic Other hereditary and degenerative nervous system conditions (1 source) Restless legs syndrome; Translations: [RLS (restless legs syndrome)] Onset: 07-06-2024 Chronic Other non-traumatic joint disorders (1 source) Acute ankle pain; Translations: [Acute right ankle pain] Episodic Other nutritional; endocrine; and metabolic disorders (5 sources) Body mass index 40+ - severely obese; Translations: [Morbid (severe) obesity due to excess calories] Onset: 09-14-2020 Chronic Other nutritional; endocrine; and metabolic disorders (1 source) Obesity, unspecified; Translations: [Obesity, unspecified] Onset: 09-01-2021 Chronic Other nutritional; endocrine; and metabolic disorders (3 sources) Body mass index (BMI) 50.0-59.9, adult; Translations: [Body mass index [BMI] 50.0-59.9, adult] Onset: 09-01-2021 Chronic Other nutritional; endocrine; and metabolic disorders (2 sources) Body mass index (BMI) 45.0-49.9, adult; Translations: [Body mass index [BMI] 45.0-49.9, adult] Onset: 08-27-2021 Chronic Other nutritional; endocrine; and metabolic disorders (3 sources) Morbid (severe) obesity due to excess calories; Translations: [Morbid (severe) obesity due to excess calories] Onset: 08-27-2021 Chronic Other nutritional; endocrine; and metabolic disorders (9 sources) Severe obesity; Translations: [Morbid (severe) obesity due to excess calories] 11-13-2023 Chronic Other nutritional; endocrine; and metabolic disorders (8 sources) Insulin resistance; Translations: [Insulin resistance] 03-03-2024 Chronic Other screening for suspected conditions (not mental disorders or infectious disease) (1 source) Abnormal findings on diagnostic imaging of other specified body structures; Translations: [Abnormal findings on dx imaging of oth body structures] Onset: 10-20-2021 Chronic Other screening for suspected conditions (not mental disorders or infectious disease) (20 sources) test negative; Translations: [ examination or test, negative result] Onset: 03-02-2024 11-04-2023 Episodic Other skin disorders (3 sources) Disorder of scalp; Translations: [Localized swelling, mass and lump, head] 09-23-2023 Episodic Other skin disorders (1 source) Hirsutism; Translations: [Hirsutism] 11-04-2023 Episodic Other upper respiratory disease (20 sources) Seasonal allergy; Translations: [Allergic rhinitis, cause unspecified] Chronic Residual codes; unclassified (3 sources) Sleep apnea; Translations: [Sleep apnea, unspecified] 06-04-2024 Chronic Residual codes; unclassified (17 sources) Obstructive sleep apnea syndrome; Translations: [Obstructive sleep apnea (adult) (pediatric)] Onset: 07-06-2024 06-30-2024 Chronic Residual codes; unclassified (1 source) Sleep paralysis; Translations: [Other sleep disorders] 07-07-2024 Chronic Residual codes; unclassified (1 source) Dream enactment behavior; Translations: [REM sleep behavior disorder] 07-07-2024 Chronic Residual codes; unclassified (2 sources) Obstructive sleep apnea (adult) (pediatric); Translations: [JOSEPH (obstructive sleep apnea)] Onset: 07-06-2024 Chronic Residual codes; unclassified (1 source) Other sleep disorders; Translations: [Sleep paralysis] Onset: 07-06-2024 Chronic Residual codes; unclassified (1 source) REM sleep behavior disorder; 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] Onset: 07-06-2024 Chronic Residual codes; unclassified (20 sources) At risk of sexually transmitted infection ; Translations: [High-risk sexual behavior] Episodic Residual codes; unclassified (20 sources) H/O: miscarriage; Translations: [Personal history of other genital system and obstetric disorders] Episodic Comment on above: 2014; Residual codes; unclassified (1 source) Viral syndrome; Translations: [Other general symptoms and signs] 06-23-2024 Episodic Residual codes; unclassified (1 source) Family history of breast cancer; Translations: [Family history of malignant neoplasm of breast] 11-11-2024 Episodic Screening and history of mental health and substance abuse codes (2 sources) Encounter for screening for depression; Translations: [Encounter for screening examination for other mental health and behavioral disorders] Onset: 02-26-2025 Episodic Thyroid disorders (20 sources) Multinodular goiter; Translations: [Nontoxic multinodular goiter] Onset: 08-27-2021 08-26-2023 Chronic Unclassified (1 source) Injury of right ankle; Translations: [Injury, ankle, right, initial encounter] Unclassified (1 source) Sprain of right ankle; Translations: [Sprain of right ankle, unspecified ligament, initial encounter] Unclassified (2 sources) TOOTH PAIN 12-14-2020 Comment on above: TOOTH PAIN Unclassified (2 sources) Body mass index [BMI] 45.0-49.9, adult 08-26-2021 Unclassified (1 source) URETERAL STENT PAIN URETERAL STENT PAIN 08-29-2021 Comment on above: URETERAL STENT PAIN URETERAL STENT PAIN Unclassified (1 source) LEFT ESWL/ [id number] 08-29-2021 Comment on above: LEFT ESWL/ 86901 Unclassified (1 source) Kidney stone on left side 08-31-2021 Unclassified (2 sources) CHEST PAIN/ LOW HEMOGLOBIN 11-20-2021 Comment on above: CHEST PAIN/ LOW HEMO GLOBIN Unclassified (1 source) 6 WEEKS OV 11-03-2021 Comment on above: 6 WEEKS OV Unclassified (1 source) 1 WK FU 11-07-2021 Comment on above: 1 WK FU Unclassified (1 source) Contact with and (suspected) exposure to COVID-19; Translations: [Contact with and (suspected) exposure to COVID-19] Onset: 08-31-2021 Unclassified (1 source) Class 3 severe obesity with body mass index (BMI) of 50.0 to 59.9 in adult, unspecified obesity type, unspecified whether serious comorbidity present; Translations: [Class 3 severe obesity with body mass index (BMI) of 50.0 to 59.9 in adult, unspecified obesity type, unspecified whether serious comorbidity present] Onset: 08-31-2024 Unclassified (1 source) Non-Chemotherapy Treatment Onset: 06-10-2024 Unclassified (1 source) Insulin resistance; Translations: [Insulin resistance] Onset: 05-20-2024 Unclassified (1 source) Class 3 severe obesity with body mass index (BMI) of 50.0 to 59.9 in adult, unspecified obesity type, unspecified whether serious comorbidity present (HCC); Translations: [Class 3 severe obesity with body mass index (BMI) of 50.0 to 59.9 in adult, unspecified obesity type, unspecified whether serious comorbidity present (HCC)] Onset: 05-20-2024 Unclassified (1 source) Class 3 severe obesity with body mass index (BMI) of 45.0 to 49.9 in adult, unspecified obesity type, unspecified whether serious comorbidity present (HCC); Translations: [Class 3 severe obesity with body mass index (BMI) of 45.0 to 49.9 in adult, unspecified obesity type, unspecified whether serious comorbidity present (HCC)] Onset: 03-02-2024 Past or Other Problems Problem Classification Problem Date Documented Date Episodic/Chronic Calculus of urinary tract (20 sources) Urolithiasis ; Translations: [Urinary calculus, unspecified] Onset: 08-31-2021 08-25-2021 Episodic Complication of device; implant or graft (1 source) Pain due to genitourinary prosthetic devices, implants and grafts, initial encounter; Translations: [Pain due to genitourinary prosth dev/grft, initial encounter] Onset: 08-29-2021 Episodic Deficiency and other anemia (20 sources) Iron deficiency anemia; Translations: [Iron deficiency anemia, unspecified] Onset: 08-26-2023 08-26-2023 Episodic Deficiency and other anemia (2 sources) Iron deficiency anemia, unspecified; Translations: [Iron deficiency anemia, unspecified] Onset: 02-27-2022 Episodic Deficiency and other anemia (1 source) Other vitamin B12 deficiency anemias; Translations: [Other vitamin B12 deficiency anemia] Onset: 03-10-2024 Episodic Malaise and fatigue (12 sources) Other fatigue; Translations: [Fatigue] Onset: 11-20-2021 09-23-2023 Episodic Mood disorders (4 sources) Depressive disorder; Translations: [Major depressive disorder, single episode, unspecified] Onset: 09-14-2020 Resolved: 09-14-2020 09-14-2020 Chronic Mycoses (1 source) Other urogenital candidiasis; Translations: [Other urogenital candidiasis] Onset: 08-31-2021 Episodic Other circulatory disease (1 source) Elevated blood-pressure reading, without diagnosis of hypertension; Translations: [Elevated blood pressure reading without diagnosis of hypertension] Onset: 08-31-2024 Episodic Other diseases of kidney and ureters (3 sources) Hydronephrosis with renal and ureteral calculous obstruction; Translations: [Hydronephrosis with renal and ureteral calculous obstruction] Onset: 08-25-2021 Episodic Other female genital disorders (1 source) Personal history of other diseases of the female genital tract; Translations: [Personal history of oth diseases of the female genital tract] Onset: 11-20-2021 Episodic Other lower respiratory disease (1 source) Dyspnea, unspecified; Translations: [Dyspnea, unspecified] Onset: 11-20-2021 Episodic Other nervous system disorders (1 source) Other acute postprocedural pain; Translations: [Other acute postprocedural pain] Onset: 08-29-2021 Episodic Ovarian cyst (2 sources) Follicular cyst of right ovary; Translations: [Follicular cyst of left ovary] Onset: 10-20-2021 Episodic Residual codes; unclassified (1 source) Family history of malignant neoplasm of breast; Translations: [Family history of breast cancer] Onset: 11-11-2024 Episodic Spondylosis; intervertebral disc disorders; other back problems (20 sources) Backache; Translations: [Low back pain] Onset: 08-29-2021 08-25-2021 Episodic Comment on above: BACK PAIN Sprains and strains (1 source) Sprain of ankle; Translations: [Moderate right ankle sprain, initial encounter] Episodic Unclassified (20 sources) Finding of menstrual bleeding; Translations: [Menstruation] Comment on above: AGE 11; Urinary tract infections (1 source) Urinary tract infection, site not specified; Translations: [Urinary tract infection, site not specified] Onset: 08-31-2021 Episodic Results Test Name Value Interpretation Reference Range Facility CBC W Auto Differential pane l (Bld)on 03-01-2025 Basophils (Bld) [#/Vol] 0.06 10*3/uL Normal <0.11 [facility] Comment on above: Order Comment: Speci men Type: BLOOD SPECIMENOrdering Facility: [facility] Address: [address] [place] [address] Performed By: #### 5 7021-8 ####[facility] HOSPITALWNCLIA [id number] [place] [address] [place] Basophils/100 WBC (Bld) 0.7 % Normal [facility] Comment on above: Order Comment: Speci men Type: BLOOD SPECIMENOrdering Facility: [facility] Address: [address] [place] [address] Performed By: #### 5 7021-8 ####[facility] HOSPITALWNCLIA [id number] [place] [address] [place] Differential cell count method Nom (Bld) Auto Normal [facility] Comment on above: Order Comment: Speci men Type: BLOOD SPECIMENOrdering Facility: [facility] Address: [address] [place] [address] Performed By: #### 5 7021-8 ####[facility] HOSPITALWNCLIA [id number] [place] [address] [place] Eosinophils (Bld) [#/Vol] 0.28 10*3/uL Normal <0.46 [facility] Comment on above: Order Comment: Speci men Type: BLOOD SPECIMENOrdering Facility: [facility] Address: [address] [place] [address] Performed By: #### 5 7021-8 ####[facility] MILLWNCLIA [id number] [place] [address] [place] Eosinophils/100 WBC (Bld) 3.3 % Normal [facility] Comment on above: Order Comment: Speci men Type: BLOOD SPECIMENOrdering Facility: [facility] Address: [address] [place] [address] Performed By: #### 5 7021-8 ####[facility]ITALLIA [id number] [place] [address] [place] Erythrocyte distribution width (RBC) [Ratio] 12.8 % Normal 11.5-15.0 [facility] Comment on above: Order Comment: Speci men Type: BLOOD SPECIMENOrdering Facility: [facility] Address: [address] [place] [address] Performed By: #### 5 7021-8 ####[facility]ALL[facility] [id number] [place] [address] [place] Hematocrit (Bld) [Volume fraction] 38.7 % Normal 36.0-46.0 [facility] Comment on above: Order Comment: Speci men Type: BLOOD SPECIMENOrdering Facility: [facility] Address: [address] [place] [address] Performed By: #### 5 7021-8 ####[facility] [id number] [place] [address] [place] Hemoglobin (Bld) [Mass/Vol] 13.3 g/dL Normal 11.5-15.5 [facility] Comment on above: Order Comment: Speci men Type: BLOOD SPECIMENOrdering Facility: [facility] Address: [address] [place] [address] Performed By: #### 5 7021-8 ####[facility]ALL[facility] [id number] [place] [address] [place] Immature granulocytes (Bld) [#/Vol] 10*3/uL Normal <0.10 [facility] Comment on above: Order Comment: Speci men Type: BLOOD SPECIMENOrdering Facility: [facility] Address: [address] [place] [address] Performed By: #### 5 7021-8 ####[facility]ITALNCM[facility] [id number] [place] [address] [place] Immature granulocytes/100 WBC (Bld) 0.2 % Normal [facility] Comment on above: Order Comment: Speci men Type: BLOOD SPECIMENOrdering Facility: [facility] Address: [address] [place] [address] Performed By: #### 5 7021-8 ####[facility]ALL[facility] [id number] [place] [address] [place] Lymphocytes (Bld) [#/Vol] 2.29 10*3/uL Normal 1.00-4.00 [facility] Comment on above: Order Comment: Speci men Type: BLOOD SPECIMENOrdering Facility: [facility] Address: [address] [place] [address] Performed By: #### 5 7021-8 ####[facility]ITALA [id number] [place] [address] [place] Lymphocytes/100 WBC (Bld) 26.7 % Normal [facility] Comment on above: Order Comment: Speci men Type: BLOOD SPECIMENOrdering Facility: [facility] Address: [address] [place] [address] Performed By: #### 5 7021-8 ####[facility]ITALNCLIA [id number] [place] [address] [place] MCH (RBC) [Entitic mass] 27.2 pg Normal 26.0-34.0 [facility] Comment on above: Order Comment: Speci men Type: BLOOD SPECIMENOrdering Facility: [facility] Address: [address] [place], [place] [address] Performed By: #### 5 7021-8 ####[facility]ITALA [id number] [place] [address] [place] MCHC (RBC) [Mass/Vol] 34.4 g/dL Normal 30.5-36.0 [facility] Comment on above: Order Comment: Speci men Type: BLOOD SPECIMENOrdering Facility: [facility] Address: [address] [place] [address] Performed By: #### 5 7021-8 ####[facility] CAROLINEPRANAV [id number] [place] [address] [place] MCV (RBC) [Entitic vol] 79.1 fL Low 80.0-100.0 [facility] Comment on above: Order Comment: Speci men Type: BLOOD SPECIMENOrdering Facility: [facility] Address: [address] [place] [address] Performed By: #### 5 7021-8 ####[facility] HOSPITALNCCaitie [id number] [place] [address] [place] Monocytes (Bld) [#/Vol] 0.58 10*3/uL Normal <0.87 [facility] Comment on above: Order Comment: Speci men Type: BLOOD SPECIMENOrdering Facility: [facility] Address: [address] [place] [address] Performed By: #### 5 7021-8 ####[facility]OS[facility]ITALA [id number] [place] [address] [place] Monocytes/100 WBC (Bld) 6.8 % Normal [facility] Comment on above: Order Comment: Speci men Type: BLOOD SPECIMENOrdering Facility: [facility] Address: [address] [place] [address] Performed By: #### 5 7021-8 ####[facility]ITALNCLIA [id number] [place] [address] [place] Neutrophils (Bld) [#/Vol] 5.36 10*3/uL Normal 1.45-7.50 [facility] Comment on above: Order Comment: Speci men Type: BLOOD SPECIMENOrdering Facility: [facility] Address: [address] [place] [address] Performed By: #### 5 7021-8 ####[facility] HOSPITALWNCLIA [id number] [place] [address] [place] Neutrophils/100 WBC (Bld) 62.3 % Normal [facility] Comment on above: Order Comment: Speci men Type: BLOOD SPECIMENOrdering Facility: [facility] Address: [address] [place] [address] Performed By: #### 5 7021-8 ####[facility]ALL[facility] [id number] [place] [address] [place] Nucleated RBC (Bld) [#/Vol] 10*3/uL Normal <0.01 [facility] Comment on above: Order Comment: Speci men Type: BLOOD SPECIMENOrdering Facility: [facility] Address: [address] [place] [address] Performed By: #### 5 7021-8 ####[facility] [id number] [place] [address] [place] Nucleated RBC/100 WBC (Bld) [Ratio] 0.0 /100 WBC Normal [facility] Comment on above: Order Comment: Speci men Type: BLOOD SPECIMENOrdering Facility: [facility] Address: [address] [place] [address] Performed By: #### 5 7021-8 ####[facility] [id number] [place] [address] [place] Platelet mean volume (Bld) [Entitic vol] 9.2 fL Normal 9.0-12.7 [facility] Comment on above: Order Comment: Speci men Type: BLOOD SPECIMENOrdering Facility: [facility] Address: [address] [place] [address] Performed By: #### 5 7021-8 ####[facility] HOSPITALNCLI [id number] [place] [address] [place] Platelets (Bld) [#/Vol] 329 10*3/uL Normal 150-400 [facility] Comment on above: Order Comment: Speci men Type: BLOOD SPECIMENOrdering Facility: [facility] Address: [address] [place] [address] Performed By: #### 5 7021-8 ####[facility] HOSPITALNCLIA [id number] [place] [address] [place] RBC (Bld) [#/Vol] 4.89 10*6/uL Normal 3.90-5.20 [facility] Comment on above: Order Comment: Speci men Type: BLOOD SPECIMENOrdering Facility: [facility] Address: [address] [place] [address] Performed By: #### 5 7021-8 ####[facility]OS[facility]ITALNCLIA [id number] [place] [address] [place] WBC (Bld) [#/Vol] 8.59 10*3/uL Normal 3.70-11.00 [facility] Comment on above: Order Comment: Speci men Type: BLOOD SPECIMENOrdering Facility: [facility] Address: [address] [place] [address] Performed By: #### 5 7021-8 ####[facility]ITALNCLIA [id number] [place] [address] [place] Ferritin SerPl-mCncon 2024 Ferritin [Mass/Vol] 36.9 ng/mL Normal 14.7-205.1 [facility] Comment on above: Order Comment: Speci men Type: BLOOD SPECIMENOrdering Facility: [facility] Address: [address] [place] [address] Performed By: #### 5 0190-8, 2132-9, 2276-4 ####[facility] LABCLIA [id number] [place] [address] [place] Iron and Iron binding capaci ty panelon 03-01-2025 Iron [Mass/Vol] 50 ug/dL Normal 41-186 [facility] Comment on above: Order Comment: Speci men Type: BLOOD SPECIMENOrdering Facility: [facility] Address: [address] [place] [address] Performed By: #### 5 0190-8, 9, 2275-08 ####[facility] LABCLIA [id number] [place] [address] [place] Iron binding capacity [Mass/Vol] 345 ug/dL Normal 232-386 [facility] Comment on above: Order Comment: Speci men Type: BLOOD SPECIMENOrdering Facility: [facility] Address: [address] [place] [address] Performed By: #### 5 0190-8, 2132-01, 2275-08 ####[facility] LABCLIA [id number] [place] [address] [place] Iron/TIBC [Molar ratio] 14.5 % Low 15.0-57.0 [facility] Comment on above: Order Comment: Speci men Type: BLOOD SPECIMENOrdering Facility: [facility] Address: [address] [place] [address] Performed By: #### 5 0190-8, 2132-01, 2275-08 ####[facility] LABCLIA [id number] [place] [address] [place] Vit B12 SerPl-ncon 025 Cobalamin (Vitamin B12) [Mass/Vol] 514 pg/mL Normal 232-1245 [facility] Comment on above: Order Comment: Speci men Type: BLOOD SPECIMENOrdering Facility: [facility] Address: [address] [place] [address] Performed By: #### 5 0190-8, 9, 2275-08 ####[facility] LABCLIA [id number] [place] [id number] [place] CNOVon 02-26-2025 CNOV Normal [facility] Comprehensive metabolic 2000 panelon 02-26-2025 Albumin [Mass/Vol] 4.4 g/dL Normal 3.9-4.9 [facility] Comment on above: Order Comment: Speci men Type: BLOOD SPECIMENOrdering Facility: [facility] Address: [address] [place] [address] Performed By: #### 2 4323-8, LIPNF, 3016-3 ####[facility] LABCLIA [id number] [place] [address] [place] ALP [Catalytic activity/Vol] 77 U/L Normal 34-123 [facility] Comment on above: Order Comment: Speci men Type: BLOOD SPECIMENOrdering Facility: [facility] Address: [address] [place] [address] Performed By: #### 2 4323-8, LIPNF, 3016-3 ####[facility] LABCLIA [id number] [place] [address] [place] ALT [Catalytic activity/Vol] 13 U/L Normal 7-38 [facility] Comment on above: Order Comment: Speci men Type: BLOOD SPECIMENOrdering Facility: [facility] Address: [address] [place] [address] Performed By: #### 2 4323-8, LIPNF, 3016-3 ####[facility] LABCLIA [id number] [place] [id number] [place] Anion gap [Moles/Vol] 12 mmol/L Normal 8-15 [facility] Comment on above: Order Comment: Speci men Type: BLOOD SPECIMENOrdering Facility: [facility] Address: [address] [place] [address] Performed By: #### 2 4323-8, LIPNF, 3016-3 ####[facility] LABCLIA [id number] [place] [id number] [place] AST [Catalytic activity/Vol] 15 U/L Normal 13-35 [facility] Comment on above: Order Comment: Speci men Type: BLOOD SPECIMENOrdering Facility: [facility] Address: [address] [place] [address] Performed By: #### 2 4323-8, LIPNF, 6-3 ####[facility] LABCLIA [id number] [place] [address] [place] Bilirubin [Mass/Vol] 0.4 mg/dL Normal 0.2-1.3 [facility] Comment on above: Order Comment: Speci men Type: BLOOD SPECIMENOrdering Facility: [facility] Address: [address] [place] [address] Performed By: #### 2 4323-8, LIPNF, 6-3 ####[facility] LABCLIA [id number] [place] [address] [place] Calcium [Mass/Vol] 9.4 mg/dL Normal 8.5-10.2 [facility] Comment on above: Order Comment: Speci men Type: BLOOD SPECIMENOrdering Facility: [facility] Address: [address] [place] [address] Performed By: #### 2 4323-8, LIPNF, 6-3 ####[facility] LABCLIA [id number] [place] [address] [place] Chloride [Moles/Vol] 104 mmol/L Normal 98-107 [facility] Comment on above: Order Comment: Speci men Type: BLOOD SPECIMENOrdering Facility: [facility] Address: [address] [place] [place] [address] Performed By: #### 2 4323-8, LIPNF, 6-3 ####[facility] LABCLIA [id number] [place] [id number] [place] CO2 [Moles/Vol] 24 mmol/L Normal 22-30 [facility] Comment on above: Order Comment: Speci men Type: BLOOD SPECIMENOrdering Facility: [facility] Address: [address] [place] [address] Performed By: #### 2 4323-8, LIPNF, 6-3 ####[facility] LABCLIA [id number] [place] [address] [place] Creatinine [Mass/Vol] 0.58 mg/dL Normal 0.58-0.96 [facility] Comment on above: Order Comment: Juan Ramon vidal Type: BLOOD SPECIMENOrdering Facility: [facility] Address: [address] [place] [address] Performed By: #### 2 4323-8, ULYSSES, 3016-3 ####[facility] LABCLIA [id number] [place] [address] [place] eGFRcr SerPlBld CKD-EPI 2020 125 mL/min/1.73m??? Normal >=60 [facility] Comment on above: Order Comment: Juan Ramon vidal Type: BLOOD SPECIMENOrdering Facility: [facility] Address: [address] [place] [address] Result Comment: Shy mated Glomerular Filtration Rate (eGFR) is calculated using the 2020 CKD-EPI creatinine equation. This equation utilizes serum creatinine, sex, and age as parameters. The creatinine assay has traceable calibration to isotope dilution-mass spectrometry. Refer to KDIGO guidelines for clinical interpretation. In patients with unstable renal function, e.g. those with acute kidney injury, the eGFR may not accurately reflect actual GFR. Performed By: #### 2 4323-8, ULYSSES, 3016-3 ####[facility] LABCLIA [id number] [place] [address] [place] Glucose [Mass/Vol] 84 mg/dL Normal 74-99 [facility] Comment on above: Order Comment: Juan Ramon vidal Type: BLOOD SPECIMENOrdering Facility: [facility] Address: [address] [place] [address] Result Comment: The [place] Diabetes Association (ADA) provides guidance for cutoff values for fasting glucose and random glucose. The ADA defines fasting as no caloric intake for at least 8 hours. Fasting plasma glucose results between 100 to 125 mg/dL indicate increased risk for diabetes (prediabetes).Fasting plasma glucose results greater than or equal to 126 mg/dL meet the criteria for diagnosis of diabetes. In the absence of unequivocal hyperglycemia, results should be confirmed by repeat testing. In a patient with classic symptoms of hyperglycemia or hyperglycemic crisis, random plasma glucose results greater than or equal to 200 mg/dL meet the criteria for diagnosis of diabetes.Reference: Standards of Medical Care in Diabetes 2016, [place] Diabetes Association. Diabetes Care. 2016.39(Suppl 1). Performed By: #### 2 4323-8, LIPNF, 6-3 ####[facility] LABCLIA [id number] [place] [id number] [place] Potassium [Moles/Vol] 3.8 mmol/L Normal 3.7-5.1 [facility] Comment on above: Order Comment: Speci men Type: BLOOD SPECIMENOrdering Facility: [facility] Address: [address] [place] [address] Performed By: #### 2 4323-8, LIPAVERY, 3015-3 ####[facility] LABCLIA [id number] [place] [address] [place] Protein [Mass/Vol] 7.8 g/dL Normal 6.3-8.0 [facility] Comment on above: Order Comment: Speci men Type: BLOOD SPECIMENOrdering Facility: [facility] Address: [address] [place] [address] Performed By: #### 2 4323-8, LIPNF, 3015-3 ####[facility] LABCLIA [id number] [place] [id number] [place] Sodium [Moles/Vol] 140 mmol/L Normal 136-144 [facility] Comment on above: Order Comment: Speci men Type: BLOOD SPECIMENOrdering Facility: [facility] Address: [address] [place] [address] Performed By: #### 2 4323-8, LIPNF, 3015-3 ####[facility] LABCLIA [id number] [place] [address] [place] Urea nitrogen [Mass/Vol] 14 mg/dL Normal 7-21 [facility] Comment on above: Order Comment: Speci men Type: BLOOD SPECIMENOrdering Facility: [facility] Address: [address] [place] [address] Performed By: #### 2 4323-8, ULYSSES, 3016-3 ####[facility] LABCLIA [id number] [address] [place] HbA1c (Bld)on 02-26-2025 Average glucose Estimated from glycated hemoglobin (Bld) [Mass/Vol] 85 mg/dL Normal [facility] Comment on above: Order Comment: Juan Ramon vidal Type: BLOOD SPECIMENOrdering Facility: [facility] Address: [address] [place] [address] Result Comment: eAG: (Estimated average glucose) is a calculated value from HgbA1c and is aircraft sales representative of the average blood glucose level in the last 2-3 month period. Performed By: #### 5 5454-3 ####[facility] LABIA [id number] [address] STATES OF [facility] HbA1c (Bld) [Mass fraction] 4.6 % Normal 4.3-5.6 [facility] Comment on above: Order Comment: Juan Ramon vidal Type: BLOOD SPECIMENOrdering Facility: [facility] Address: [address] [place] [address] Result Comment: [place] Diabetes Association guidelines indicate that patients with HgbA1c in the range 5.7-6.4% are at increased risk for development of diabetes, and intervention by lifestyle modification may be beneficial. HgbA1c greater or equal to 6.5% is considered diagnostic of diabetes. Performed By: #### 5 5454-3 ####[facility] LABIA [id number] [address] [place] LIPID PANEL, NONFASTINGon Cholesterol [Mass/Vol] 196 mg/dL Normal <200 [facility] Comment on above: Order Comment: Juan Ramon vidal Type: BLOOD SPECIMENOrdering Facility: [facility] Address: [address] [place] [address] Result Comment: <200 mg/dL, Desirable 200-239 mg/dL, Borderline high>239 mg/dL, High Performed By: #### 2 4323-8, LIPNF, 3016-3 ####[facility] LABCLIA [id number] [address] [place] HDL CHOLESTEROL, NF 53 mg/dL Normal >39 [facility] Comment on above: Order Comment: Juan Ramon marcy Type: BLOOD SPECIMENOrdering Facility: [facility] Address: [address] [place] [address] Result Comment: 40-5 9 mg/dL, Acceptable>59 mg/dL, High: Negative risk factor for coronary heart disease<40 mg/dL, Low: Positive risk factor for coronary heart disease Performed By: #### 2 4323-8, LIPNF, 3016-3 ####[facility] LABCLIA [id number] [address] LDL CHOLESTEROL CALCULATED, NF 125 mg/dL High <100 [facility] Comment on above: Order Comment: Juan Ramon [facility] Type: BLOOD SPECIMENOrdering Facility: [facility] Address: [address] [place] [address] Result Comment: <100 mg/dL, Optimal 100-129 mg/dL, Near optimal/above optimal 130-159 mg/dL, Borderline high 160-189 mg/dL, High>189 mg/dL, Very highSecondary prevention optimal LDL Cholesterol levels are recommended to be <70 mg/dLLDL cholesterol is calculated using the Tang-NIH equation. Performed By: #### 2 4323-8, LIPNF, 3016-3 ####[facility] LABCLIA [id number] [address] OF [facility] LDL/HDL RATIO, NF 2.36 mg/dL Normal <2.54 [facility] Comment on above: Order Comment: Jocelynei marcy Type: BLOOD SPECIMENOrdering Facility: [facility] Address: [address] [place] [address] Result Comment: Jesusita valdivia:1. National Cholesterol Education Program ATP III Guideline At-A-Glance Quick Desk Reference: National Heart, Lung, and Blood [place]. National Institutes of Health. 2001: NIH Publication No. 01-3305.2. An International Atherosclerosis Society position paper: global recommendations for the management of dyslipidemia: executive summary, Atherosclerosis. 2014: 232(2):410-413. Performed By: #### 2 4323-8, LIPNF, 3016-3 ####[facility] LABCLIA [id number] [address] OF [facility] NON HDL CHOL, NF 143 mg/dL High <130 [facility] Comment on above: Order Comment: Speci men Type: BLOOD SPECIMENOrdering Facility: [facility] Address: [address] [place] [address] Result Comment: <130 mg/dL, Optimal 130-159 mg/dL, Near optimal/above optimal 160-189 mg/dL, Borderline high 190-219 mg/dL, High>219 mg/dL, Very highSecondary prevention optimal non HDL Cholesterol levels are recommended to be <100 mg/dL Performed By: #### 2 4323-8, LIPNF, 6-3 ####[facility] LABCLIA [id number] [address] T CHOL/HDL RATIO NF 3.70 mg/dL Normal <5.10 [facility] Comment on above: Order Comment: Juan Ramon vidal Type: BLOOD SPECIMENOrdering Facility: [facility] Address: [address] [place] [address] Performed By: #### 2 4323-8, LIPNF, 6-3 ####[facility] LABCLIA [id number] [address] OF [facility] TRIGLYCERIDES, NF 101 mg/dL Normal <150 [facility] Comment on above: Order Comment: Jocelynei men Type: BLOOD SPECIMENOrdering Facility: [facility] Address: [address] [place] [address] Result Comment: <150 mg/dL, Normal 150-199 mg/dL, Borderline high 200-499 mg/dL, High>499 mg/dL, Very high Performed By: #### 2 4323-8, LIPNF, 6-3 ####[facility] LABCLIA [id number] [place] [address] [place] VLDL CHOLESTEROL, NF 18 mg/dL Normal <30 [facility] Comment on above: Order Comment: Speci men Type: BLOOD SPECIMENOrdering Facility: [facility] Address: [address] [place] [address] Performed By: #### 2 4323-8, ULYSSES, 3016-3 ####[facility] LABCLIA [id number] [place] [address] [place] TSH SerPl-aCncon 02-26-2025 TSH Qn 1.870 m[IU]/L Normal 0.270-4.200 [facility] Comment on above: Order Comment: Speci men Type: BLOOD SPECIMENOrdering Facility: [facility] Address: [address] [place] [address] Result Comment: If t he patient is , TSH reference range varies by gestational period:First Trimester (weeks 9-12): 0.180-2.990 mIU/LSecond Trimester: 0.110-3.980 mIU/LThird Trimester: 0.480-4.710 mIU/Rebekah Parr et al. A Practical Approach for the Verifications and Determination of Site- and Trimester-Specific Reference Intervals for Thyroid Function tests in . Thyroid, 2019:29:3:412-420. Eder Sweeney, et al. 2017 Guidelines of the [place] Thyroid Association for the Diagnosis and Management of Thyroid Disease during and the . Thyroid, 2017:27:3:315-389. Performed By: #### 2 4323-8, ULYSSES, 3016-3 ####[facility] LABCLIA [id number] [place] [id number] [place] CNOVon 02-03-2025 CNOV Normal [facility] CNOVSPon 02-02-2025 CNOVSP Normal [facility] CBC W Auto Differential pane l (Bld)on 02-01-2025 Basophils (Bld) [#/Vol] 0.08 10*3/uL Normal <0.11 [facility] Comment on above: Order Comment: Speci men Type: BLOOD SPECIMENOrdering Facility: [facility] Address: [address] [place] [address] Performed By: #### 5 7021-8 ####[facility] MILLWNCLIA [id number] [place] [address] [place] Basophils/100 WBC (Bld) 0.8 % Normal [facility] Comment on above: Order Comment: Speci men Type: BLOOD SPECIMENOrdering Facility: [facility] Address: [address] [place] [address] Performed By: #### 5 7021-8 ####[facility]ITAL[facility]CL[facility] [id number] [place] [address] [place] Differential cell count method Nom (Bld) Auto Normal [facility] Comment on above: Order Comment: Speci men Type: BLOOD SPECIMENOrdering Facility: [facility] Address: [address] [place] [address] Performed By: #### 5 7021-8 ####[facility] [id number] [place] [address] [place] Eosinophils (Bld) [#/Vol] 0.22 10*3/uL Normal <0.46 [facility] Comment on above: Order Comment: Speci men Type: BLOOD SPECIMENOrdering Facility: [facility] Address: [address] [place] [address] Performed By: #### 5 7021-8 ####[facility] HOSPITALWNCLIA [id number] [place] [address] [place] Eosinophils/100 WBC (Bld) 2.3 % Normal [facility] Comment on above: Order Comment: Speci men Type: BLOOD SPECIMENOrdering Facility: [facility] Address: [address] [place] [address] Performed By: #### 5 7021-8 ####[facility]ITALNCLIA [id number] [place] [address] [place] Erythrocyte distribution width (RBC) [Ratio] 12.7 % Normal 11.5-15.0 [facility] Comment on above: Order Comment: Speci men Type: BLOOD SPECIMENOrdering Facility: [facility] Address: [address] [place] [address] Performed By: #### 5 7021-8 ####[facility] [id number] [place] [address] [place] Hematocrit (Bld) [Volume fraction] 39.5 % Normal 36.0-46.0 [facility] Comment on above: Order Comment: Speci men Type: BLOOD SPECIMENOrdering Facility: [facility] Address: [address] [place] [address] Performed By: #### 5 7021-8 ####[facility] [id number] [place] [address] [place] Hemoglobin (Bld) [Mass/Vol] 13.5 g/dL Normal 11.5-15.5 [facility] Comment on above: Order Comment: Speci men Type: BLOOD SPECIMENOrdering Facility: [facility] Address: [address] [place] [address] Performed By: #### 5 7021-8 ####[facility] [id number] [place] [address] [place] Immature granulocytes (Bld) [#/Vol] 0.03 10*3/uL Normal <0.10 [facility] Comment on above: Order Comment: Speci men Type: BLOOD SPECIMENOrdering Facility: [facility] Address: [address] [place] [address] Performed By: #### 5 7021-8 ####[facility] HOSPITALNCLI [id number] [place] [address] [place] Immature granulocytes/100 WBC (Bld) 0.3 % Normal [facility] Comment on above: Order Comment: Speci men Type: BLOOD SPECIMENOrdering Facility: [facility] Address: [address] [place] [address] Performed By: #### 5 7021-8 ####[facility] CAROLINECADDO GAPBANGA [id number] [place] [address] [place] Lymphocytes (Bld) [#/Vol] 2.41 10*3/uL Normal 1.00-4.00 [facility] Comment on above: Order Comment: Speci men Type: BLOOD SPECIMENOrdering Facility: [facility] Address: [address] [place] [address] Performed By: #### 5 7021-8 ####[facility] [id number] [place] [address] [place] Lymphocytes/100 WBC (Bld) 24.8 % Normal [facility] Comment on above: Order Comment: Speci men Type: BLOOD SPECIMENOrdering Facility: [facility] Address: [address] [place] [address] Performed By: #### 5 7021-8 ####[facility]ITALA [id number] [place] [address] [place] MCH (RBC) [Entitic mass] 28.0 pg Normal 26.0-34.0 [facility] Comment on above: Order Comment: Speci men Type: BLOOD SPECIMENOrdering Facility: [facility] Address: [address] [place] [address] Performed By: #### 5 7021-8 ####[facility]ALL[facility] [id number] [place] [address] [place] MCHC (RBC) [Mass/Vol] 34.2 g/dL Normal 30.5-36.0 [facility] Comment on above: Order Comment: Speci men Type: BLOOD SPECIMENOrdering Facility: [facility] Address: [address] [place] [address] Performed By: #### 5 7021-8 ####[facility] HOSPITALWNCLIA [id number] [place] [address] [place] MCV (RBC) [Entitic vol] 82.0 fL Normal 80.0-100.0 [facility] Comment on above: Order Comment: Speci men Type: BLOOD SPECIMENOrdering Facility: [facility] Address: [address] [place] [address] Performed By: #### 5 7021-8 ####[facility] [id number] [place] [address] [place] Monocytes (Bld) [#/Vol] 0.66 10*3/uL Normal <0.87 [facility] Comment on above: Order Comment: Speci men Type: BLOOD SPECIMENOrdering Facility: [facility] Address: [address] [place] [address] Performed By: #### 5 7021-8 ####[facility]ITALA [id number] [place] [address] [place] Monocytes/100 WBC (Bld) 6.8 % Normal [facility] Comment on above: Order Comment: Speci men Type: BLOOD SPECIMENOrdering Facility: [facility] Address: [address] [place] [address] Performed By: #### 5 7021-8 ####[facility] [id number] [place] [address] [place] Neutrophils (Bld) [#/Vol] 6.33 10*3/uL Normal 1.45-7.50 [facility] Comment on above: Order Comment: Speci men Type: BLOOD SPECIMENOrdering Facility: [facility] Address: [address] [place] [address] Performed By: #### 5 7021-8 ####[facility]ITALNCLIA [id number] [place] [address] [place] Neutrophils/100 WBC (Bld) 65.0 % Normal [facility] Comment on above: Order Comment: Speci men Type: BLOOD SPECIMENOrdering Facility: [facility] Address: [address] [place] [address] Performed By: #### 5 7021-8 ####[facility]ITALNCM[facility] [id number] [place] [address] [place] Nucleated RBC (Bld) [#/Vol] 10*3/uL Normal <0.01 [facility] Comment on above: Order Comment: Speci men Type: BLOOD SPECIMENOrdering Facility: [facility] Address: [address] [place] [address] Performed By: #### 5 7021-8 ####[facility] [id number] [place] [address] [place] Nucleated RBC/100 WBC (Bld) [Ratio] 0.0 /100 WBC Normal [facility] Comment on above: Order Comment: Speci men Type: BLOOD SPECIMENOrdering Facility: [facility] Address: [address] [place] [address] Performed By: #### 5 7021-8 ####[facility] [id number] [place] [address] [place] Platelet mean volume (Bld) [Entitic vol] 9.1 fL Normal 9.0-12.7 [facility] Comment on above: Order Comment: Speci men Type: BLOOD SPECIMENOrdering Facility: [facility] Address: [address] [place] [address] Performed By: #### 5 7021-8 ####[facility]ITALNCM[facility] [id number] [place] [address] [place] Platelets (Bld) [#/Vol] 356 10*3/uL Normal 150-400 [facility] Comment on above: Order Comment: Speci men Type: BLOOD SPECIMENOrdering Facility: [facility] Address: [address] [place] [address] Performed By: #### 5 7021-8 ####[facility]ITALNCLIA [id number] [place] [address] [place] RBC (Bld) [#/Vol] 4.82 10*6/uL Normal 3.90-5.20 [facility] Comment on above: Order Comment: Speci men Type: BLOOD SPECIMENOrdering Facility: [facility] Address: [address] [place] [address] Performed By: #### 5 7021-8 ####[facility] HOSPITALNCA [id number] [place] [address] [place] WBC (Bld) [#/Vol] 9.73 10*3/uL Normal 3.70-11.00 [facility] Comment on above: Order Comment: Speci men Type: BLOOD SPECIMENOrdering Facility: [facility] Address: [address] [place] [address] Performed By: #### 5 7021-8 ####[facility]ALL[facility] [id number] [place] [address] [place] Ferritin SerPl-mCncon 2024 Ferritin [Mass/Vol] 48.9 ng/mL Normal 14.7-205.1 [facility] Comment on above: Order Comment: Speci men Type: BLOOD SPECIMENOrdering Facility: [facility] Address: [address] [place] [address] Performed By: #### 5 0190-8, 2132-9, 2276-4 ####[facility] LABCLIA [id number] [place] [address] [place] Iron and Iron binding capaci ty panelon 02-01-2025 Iron [Mass/Vol] 44 ug/dL Normal 41-186 [facility] Comment on above: Order Comment: Speci men Type: BLOOD SPECIMENOrdering Facility: [facility] Address: [address] [place], [place] [address] Performed By: #### 5 0190-8, 2132-01, 2275-08 ####[facility] LABCLIA [id number] [address] [address] [place] Iron binding capacity [Mass/Vol] 331 ug/dL Normal 232-386 [facility] Comment on above: Order Comment: Speci men Type: BLOOD SPECIMENOrdering Facility: [facility] Address: [address] [place], [place] [address] Performed By: #### 5 0190-8, 2132-01, 2275-08 ####[facility] LABCLIA [id number] [address] [address] [place] Iron/TIBC [Molar ratio] 13.3 % Low 15.0-57.0 [facility] Comment on above: Order Comment: Speci men Type: BLOOD SPECIMENOrdering Facility: [facility] Address: [address] [place], [place] [address] Performed By: #### 5 0190-8, 2132-01, 2275-08 ####[facility] LABCLIA [id number] [address] [address] [place] Vit B12 [facility]- 025 Cobalamin (Vitamin B12) [Mass/Vol] 414 pg/mL Normal 232-1245 [facility] Comment on above: Order Comment: Speci men Type: BLOOD SPECIMENOrdering Facility: [facility] Address: [address] [place] [address] Performed By: #### 5 0190-8, 2132-01, 2275-08 ####[facility] LABCLIA [id number] [address] [address] [place] CNOVon 11-11-2024 CNOV Normal [facility] HIGH RISK HUMAN [place] (HPV), PCR FOR DETECTION AND GENOTYPINGon 11-11-2024 HPV 16 Ag Ql (Unsp spec) Not detected Normal Not detected [facility] Comment on above: Order Comment: Speci men Type: FLUID SPECIMENOrdering Facility: [facility] Address: [address] [place] [address] Performed By: #### H PVHRT ####[facility] LABCLIA [id number] [place] [address] [place] HPV 18 Ag Ql (Unsp spec) Not detected Normal Not detected [facility] Comment on above: Order Comment: Speci men Type: FLUID SPECIMENOrdering Facility: [facility] Address: [address] [place] [address] Performed By: #### H PVHRT ####[facility] LABCLIA [id number] [place] [address] [place] HPV 31+33+35+39+45+51+52+ 56+58+59+66+68 DNA ELEUTERIO+probe Ql (Cvx) Not detected Normal Not detected [facility] Comment on above: Order Comment: Speci men Type: FLUID SPECIMENOrdering Facility: [facility] Address: [address] [place] [address] Result Comment: High Risk HPV Other Type includes HPV types 31, 33, 35, 39, 45, 51, 52, 56, 58, 59, 66 and 68. Performed By: #### H PVHRT ####[facility] LABCLIA [id number] [place] [address] [place] PAP TESTon 11-11-2024 ADEQUACY Normal [facility] Comment on above: Order Comment: Speci men Type: FLUID SPECIMENOrdering Facility: [facility] Address: [address] [place] [address] Result Comment: Sati sfactory for interpretation.Transformation zone present Performed By: #### L [id number] ####[facility] LABORATORYCLIA [id number] [place] [address] [place] [facility] LABCLIA [id number] [place] [address] [place] CASE REPORT Normal [facility] Comment on above: Order Comment: Speci men Type: FLUID SPECIMENOrdering Facility: [facility] Address: [address] [place] [address] Result Comment: Gyne cologic Cytology Report Case: [id number] Provider: John Luque APRN.[employer] Collected: 11/11/2024 04:21 PMOrdering Location: OB/Gynecology Received: 11/12/2024 07:05 AMFirst Screen: Kash Schaffer, CT, ASCPSpecimen: Pap Test, ThinPrep, Cervix Performed By: #### L [id number] ####[facility] LABORATORYCLIA [id number] [place] [address] [place] [facility] LABCLIA [id number] [place] [address] [place] CLINICAL HISTORY, CYTOLOGY, HAND BOOKED FOLDER AND STITCHER Routine Exam Normal [facility] Comment on above: Order Comment: Speci men Type: FLUID SPECIMENOrdering Facility: [facility] Address: [address] [place] [address] Performed By: #### L [id number] ####[facility] LABORATORYCLIA [id number] [place] [address] [place] [facility] LABCLIA [id number] [place] [address] [place] FINAL PERFORMING LAB Normal [facility] Comment on above: Order Comment: Speci men Type: FLUID SPECIMENOrdering Facility: [facility] Address: [address] [place] [address] Result Comment: Tech nical component, administrative professional screening performed at: [facility], [address] [place], [place] [address] CLIA: [id number] interpretation performed at: [facility], [address] [place], [place] [address] CLIA# [id number] Director: Rick Borrero MD Performed By: #### L [id number] ####[facility] LABORATORYCLIA [id number] [place] [address] [facility] LABCLIA [id number] [facility]INICD [address] [place] [address] [place] INTERPRETATION, CYTOLOGY, HAND BOOKED FOLDER AND STITCHER Normal [facility] Comment on above: Order Comment: Speci men Type: FLUID SPECIMENOrdering Facility: [facility] Address: [address] [place] [address] Result Comment: Nega tive for intraepithelial lesion or malignancy. at 0851 EDT Performed By: #### L [id number] ####[facility] LABORATORYCLIA [id number] [place] [id number] [facility] LABCLIA [id number] [address] [place] [address] [place] LMP 10/27/2024 Normal [facility] Comment on above: Order Comment: Speci men Type: FLUID SPECIMENOrdering Facility: [facility] Address: [address] [place] [address] Performed By: #### L [id number] ####[facility] LABORATORYCLIA [id number] [place] [id number] [facility] LABCLIA [id number] [address] [place] [address] [place] PAP DISCLAIMER COMMENT The Pap Smear is a screening test for cervical cancer. False negative results occur with all screening tests, emphasizing the need for rescreening at recommended intervals, and clinical correlation. Normal [facility] Comment on above: Order Comment: Speci men Type: FLUID SPECIMENOrdering Facility: [facility] Address: [address] [place] [address] Performed By: #### L [id number] ####[facility] LABORATORYCLIA [id number] [place] [address] [facility] LABCLIA [id number] [address] [place] [address] [place] PAP DIRECTOR AUTO COMMENT Normal [facility] Comment on above: Order Comment: Speci men Type: FLUID SPECIMENOrdering Facility: [facility] Address: [address] [place] [address] Performed By: #### L [id number] ####[facility] LABORATORYCLIA [id number] [place] [address] [facility] LABCLIA [id number] [place] [address] [place] CBC W Auto Differential pane l (Bld)on 10-27-2024 Basophils (Bld) [#/Vol] 0.07 10*3/uL Normal <0.11 [facility] Comment on above: Order Comment: Speci men Type: BLOOD SPECIMENOrdering Facility: [facility] Address: [address] [place] [address] Performed By: #### 5 7021-8 ####[facility] HOSPITALWNCLIA [id number] [place] [address] [place] Basophils/100 WBC (Bld) 0.8 % Normal [facility] Comment on above: Order Comment: Speci men Type: BLOOD SPECIMENOrdering Facility: [facility] Address: [address] [place] [address] Performed By: #### 5 7021-8 ####[facility] HOSPITALWMDLIA [id number] [place] [address] [place] Differential cell count method Nom (Bld) Auto Normal [facility] Comment on above: Order Comment: Speci men Type: BLOOD SPECIMENOrdering Facility: [facility] Address: [address] [place] [address] Performed By: #### 5 7021-8 ####[facility] MILLWNCLIA [id number] [place] [address] [place] Eosinophils (Bld) [#/Vol] 0.18 10*3/uL Normal <0.46 [facility] Comment on above: Order Comment: Speci men Type: BLOOD SPECIMENOrdering Facility: [facility] Address: [address] [place] [address] Performed By: #### 5 7021-8 ####[facility] NASRINNCELVIRAA [id number] [place] [address] [place] Eosinophils/100 WBC (Bld) 2.1 % Normal [facility] Comment on above: Order Comment: Speci men Type: BLOOD SPECIMENOrdering Facility: [facility] Address: [address] [place] [address] Performed By: #### 5 7021-8 ####[facility] CAROLINECADDO GAPNCLICaitie [id number] [place] [address] [place] Erythrocyte distribution width (RBC) [Ratio] 12.8 % Normal 11.5-15.0 [facility] Comment on above: Order Comment: Speci men Type: BLOOD SPECIMENOrdering Facility: [facility] Address: [address] [place] [address] Performed By: #### 5 7021-8 ####[facility] CAROLINECADDO GAPNCA [id number] [place] [address] [place] Hematocrit (Bld) [Volume fraction] 40.3 % Normal 36.0-46.0 [facility] Comment on above: Order Comment: Speci men Type: BLOOD SPECIMENOrdering Facility: [facility] Address: [address] [place] [address] Performed By: #### 5 7021-8 ####[facility] HOSPITALNCLIA [id number] [place] [address] [place] Hemoglobin (Bld) [Mass/Vol] 13.8 g/dL Normal 11.5-15.5 [facility] Comment on above: Order Comment: Speci men Type: BLOOD SPECIMENOrdering Facility: [facility] Address: [address] [place] [address] Performed By: #### 5 7021-8 ####[facility] MILLWNCLIA [id number] [place] [address] [place] Immature granulocytes (Bld) [#/Vol] 10*3/uL Normal <0.10 [facility] Comment on above: Order Comment: Speci men Type: BLOOD SPECIMENOrdering Facility: [facility] Address: [address] [place] [address] Performed By: #### 5 7021-8 ####[facility] HOSPITALNCLIA [id number] [place] [address] [place] Immature granulocytes/100 WBC (Bld) 0.2 % Normal [facility] Comment on above: Order Comment: Speci men Type: BLOOD SPECIMENOrdering Facility: [facility] Address: [address] [place] [address] Performed By: #### 5 7021-8 ####[facility]OSPITALLIA [id number] [place] [address] [place] Lymphocytes (Bld) [#/Vol] 2.22 10*3/uL Normal 1.00-4.00 [facility] Comment on above: Order Comment: Speci men Type: BLOOD SPECIMENOrdering Facility: [facility] Address: [address] [place] [address] Performed By: #### 5 7021-8 ####[facility] MILLWNCLIA [id number] [place] [address] [place] Lymphocytes/100 WBC (Bld) 25.4 % Normal [facility] Comment on above: Order Comment: Speci men Type: BLOOD SPECIMENOrdering Facility: [facility] Address: [address] [place] [address] Performed By: #### 5 7021-8 ####[facility] HOSPITALNCLIA [id number] [place] [address] [place] MCH (RBC) [Entitic mass] 27.9 pg Normal 26.0-34.0 [facility] Comment on above: Order Comment: Speci men Type: BLOOD SPECIMENOrdering Facility: [facility] Address: [address] [place] [address] Performed By: #### 5 7021-8 ####[facility] HOSPITALNCELVIRAA [id number] [place] [address] [place] MCHC (RBC) [Mass/Vol] 34.2 g/dL Normal 30.5-36.0 [facility] Comment on above: Order Comment: Speci men Type: BLOOD SPECIMENOrdering Facility: [facility] Address: [address] [place] [address] Performed By: #### 5 7021-8 ####[facility] HOSPITALNCMOUNT[facility] [id number] [place] [address] [place] MCV (RBC) [Entitic vol] 81.6 fL Normal 80.0-100.0 [facility] Comment on above: Order Comment: Speci men Type: BLOOD SPECIMENOrdering Facility: [facility] Address: [address] [place] [address] Performed By: #### 5 7021-8 ####[facility] HOSPITALNCMOUNTAIN [facility] [id number] [place] [address] [place] Monocytes (Bld) [#/Vol] 0.52 10*3/uL Normal <0.87 [facility] Comment on above: Order Comment: Speci men Type: BLOOD SPECIMENOrdering Facility: [facility] Address: [address] [place] [address] Performed By: #### 5 7021-8 ####[facility] HOSPITALNCLIA [id number] [place] [address] [place] Monocytes/100 WBC (Bld) 5.9 % Normal [facility] Comment on above: Order Comment: Speci men Type: BLOOD SPECIMENOrdering Facility: [facility] Address: [address] [place] [address] Performed By: #### 5 7021-8 ####[facility] CAROLINEMARCILIA [id number] [place] [address] [place] Neutrophils (Bld) [#/Vol] 5.73 10*3/uL Normal 1.45-7.50 [facility] Comment on above: Order Comment: Speci men Type: BLOOD SPECIMENOrdering Facility: [facility] Address: [address] [place] [address] Performed By: #### 5 7021-8 ####[facility]OSPITALLIA [id number] [place] [address] [place] Neutrophils/100 WBC (Bld) 65.6 % Normal [facility] Comment on above: Order Comment: Speci men Type: BLOOD SPECIMENOrdering Facility: [facility] Address: [address] [place] [address] Performed By: #### 5 7021-8 ####[facility]OSPITALLIA [id number] [place] [address] [place] Nucleated RBC (Bld) [#/Vol] 10*3/uL Normal <0.01 [facility] Comment on above: Order Comment: Speci men Type: BLOOD SPECIMENOrdering Facility: [facility] Address: [address] [place] [address] Performed By: #### 5 7021-8 ####[facility]OSPITALLIA [id number] [place] [address] [place] Nucleated RBC/100 WBC (Bld) [Ratio] 0.0 /100 WBC Normal [facility] Comment on above: Order Comment: Speci men Type: BLOOD SPECIMENOrdering Facility: [facility] Address: [address] [place] [address] Performed By: #### 5 7021-8 ####[facility] MILLWNCLIA [id number] [place] [address] [place] Platelet mean volume (Bld) [Entitic vol] 9.7 fL Normal 9.0-12.7 [facility] Comment on above: Order Comment: Speci men Type: BLOOD SPECIMENOrdering Facility: [facility] Address: [address] [place] [address] Performed By: #### 5 7021-8 ####[facility] HOSPITALNCLIA [id number] [place] [address] [place] Platelets (Bld) [#/Vol] 358 10*3/uL Normal 150-400 [facility] Comment on above: Order Comment: Speci men Type: BLOOD SPECIMENOrdering Facility: [facility] Address: [address] [place] [address] Performed By: #### 5 7021-8 ####[facility] HOSPITALNCLIA [id number] [place] [address] [place] RBC (Bld) [#/Vol] 4.94 10*6/uL Normal 3.90-5.20 [facility] Comment on above: Order Comment: Speci men Type: BLOOD SPECIMENOrdering Facility: [facility] Address: [address] [place] [address] Performed By: #### 5 7021-8 ####[facility] HOSPITALNCLIA [id number] [place] [address] [place] WBC (Bld) [#/Vol] 8.74 10*3/uL Normal 3.70-11.00 [facility] Comment on above: Order Comment: Speci men Type: BLOOD SPECIMENOrdering Facility: [facility] Address: [address] [place] [address] Performed By: #### 5 7021-8 ####[facility] HOSPITALNCLIA [id number] [place] [id number] [place] Ferritin SerPl-mCncon 2024 Ferritin [Mass/Vol] 100.0 ng/mL Normal 14.7-205.1 [facility] Comment on above: Order Comment: Speci men Type: BLOOD SPECIMENOrdering Facility: [facility] Address: [address] [place] [address] Performed By: #### 5 0190-8, 2132-01, 2275-08 ####[facility] LABCLIA [id number] [place] [id number] [place] Iron and Iron binding capaci ty panelon 10-27-2024 Iron [Mass/Vol] 40 ug/dL Low 41-186 [facility] Comment on above: Order Comment: Speci men Type: BLOOD SPECIMENOrdering Facility: [facility] Address: [address] [place] [address] Performed By: #### 5 0190-8, 2132-01, 2275-08 ####[facility] LABIA [id number] [place] [id number] [place] Iron binding capacity [Mass/Vol] 283 ug/dL Normal 232-386 [facility] Comment on above: Order Comment: Speci men Type: BLOOD SPECIMENOrdering Facility: [facility] Address: [address] [place], [place] [address] Performed By: #### 5 0190-8, 2132-01, 2275-08 ####[facility] LABCLIA [id number] [place] [id number] [place] Iron/TIBC [Molar ratio] 14.1 % Low 15.0-57.0 [facility] Comment on above: Order Comment: Speci men Type: BLOOD SPECIMENOrdering Facility: [facility] Address: [address] [place], [place] [address] Performed By: #### 5 0190-8, 2132-01, 2275-08 ####[facility] LABIA [id number] [place] [id number] [facility] Vit B12 [facility] 17-2 025 Cobalamin (Vitamin B12) [Mass/Vol] 394 pg/mL Normal 232-1245 [facility] Comment on above: Order Comment: Speci men Type: BLOOD SPECIMENOrdering Facility: [facility] Address: [address] [place] [address] Performed By: #### 5 0190-8, 2132-9, 2276-4 ####[facility] [id number] [address] [place] CNPNon 09-01-2024 CNPN Normal [facility] 25([place])D3 [facility] 2024 25-hydroxyvitamin D3 [Mass/Vol] 27.9 ng/mL Low 31.0-80.0 [facility] Comment on above: Order Comment: Speci men Type: BLOOD SPECIMENOrdering Facility: [facility] Address: [address] [place] [address] Result Comment: Clas sification of 25 [place] Vitamin D status:Deficiency/Insufficiency: < or = 30 ng/ml.Sufficiency/Optimal Levels: 31-80 ng/mLToxicity: > 100 ng/mL.Test performed by chemiluminescent immunoassay. Performed By: #### 1 989-3 ####[facility] [id number] [place] [id number] [place] 25-hydroxyvitamin D3 [Mass/V ol]on 08-31-2024 Interpretation and review of laboratory results Abnormal [facility] The reference range interval was based on an analysis of samples from healthy adults and may not pertain to children from 0-18 years old. [facility] CNOVon 08-31-2024 CNOV Normal [facility] VITAMIN D 25 HYDROXYon 08-31 25-hydroxyvitamin D3 [Mass/Vol] 27.9 ng/mL Low 31.0 - 80.0 ng/mL [facility] Comment on above: Classification of 25 [place] Vitamin D status: Deficiency/Insufficiency: < or = 30 ng/ml. Sufficiency/Optimal Levels: 31-80 ng/mL Toxicity: > 100 ng/mL. Test performed by chemiluminescent immunoassay. CNOVSPon 07-31-2024 CNOVSP Normal [facility] CBC W Auto Differential pane l (Bld)on 07-24-2024 Basophils (Bld) [#/Vol] 0.07 10*3/uL [facility] Basophils/100 WBC (Bld) 0.6 % [facility] Differential cell count method Nom (Bld) Auto [facility] Eosinophils (Bld) [#/Vol] 0.17 10*3/uL [facility] Eosinophils/100 WBC (Bld) 1.5 % [facility] Erythrocyte distribution width (RBC) [Ratio] 18.7 % High 11.5 - 15.0 % [facility] Hematocrit (Bld) [Volume fraction] 40.3 % 36.0 - 46.0 % [facility] Hemoglobin (Bld) [Mass/Vol] 13.2 g/dL 11.5 - 15.5 g/dL [facility] Immature granulocytes (Bld) [#/Vol] 0.05 10*3/uL [facility] Immature granulocytes/100 WBC (Bld) 0.4 % [facility] Interpretation and review of laboratory results Abnormal [facility] Lymphocytes (Bld) [#/Vol] 2.6 10*3/uL [facility] Lymphocytes/100 WBC (Bld) 22.6 % [facility] MCH (RBC) [Entitic mass] 25.8 pg Low 26.0 - 34.0 pg [facility] MCHC (RBC) [Mass/Vol] 32.8 g/dL 30.5 - 36.0 g/dL [facility] MCV (RBC) [Entitic vol] 78.7 fL Low 80.0 - 100.0 fL [facility] Monocytes (Bld) [#/Vol] 0.58 10*3/uL [facility] Monocytes/100 WBC (Bld) 5 % [facility] Neutrophils (Bld) [#/Vol] 8.02 10*3/uL High [facility] Neutrophils/100 WBC (Bld) 69.9 % [facility] Nucleated RBC (Bld) [#/Vol] [facility] Nucleated RBC/100 WBC (Bld) [Ratio] 0 % /100 WBC [facility] Platelet mean volume (Bld) [Entitic vol] 9.4 fL 9.0 - 12.7 fL [facility] Platelets (Bld) [#/Vol] 324 10*3/uL [facility] RBC (Bld) [#/Vol] 5.12 10*6/uL 3.90 - 5.2 0 m/uL [facility] WBC (Bld) [#/Vol] 11.49 10*3/uL [facility] Basophils (Bld) [#/Vol] 0.07 10*3/uL Normal <0.11 [facility] Comment on above: Order Comment: Speci men Type: BLOOD SPECIMENOrdering Facility: [facility] Address: [address] [place] [address] Performed By: #### 5 7021-8 ####[facility] [id number] [place] [address] [place] Basophils/100 WBC (Bld) 0.6 % Normal [facility] Comment on above: Order Comment: Speci men Type: BLOOD SPECIMENOrdering Facility: [facility] Address: [address] [place] [address] Performed By: #### 5 7021-8 ####[facility] [id number] [place] [address] [place] Differential cell count method Nom (Bld) Auto Normal [facility] Comment on above: Order Comment: Speci men Type: BLOOD SPECIMENOrdering Facility: [facility] Address: [address] [place] [address] Performed By: #### 5 7021-8 ####[facility] [id number] [place] [address] [place] Eosinophils (Bld) [#/Vol] 0.17 10*3/uL Normal <0.46 [facility] Comment on above: Order Comment: Speci men Type: BLOOD SPECIMENOrdering Facility: [facility] Address: [address] [place] [address] Performed By: #### 5 7021-8 ####[facility] CAROLINEWROSALVALIA [id number] [place] [address] [place] Eosinophils/100 WBC (Bld) 1.5 % Normal [facility] Comment on above: Order Comment: Speci men Type: BLOOD SPECIMENOrdering Facility: [facility] Address: [address] [place] [address] Performed By: #### 5 7021-8 ####[facility] HOSPITALROSALVALIA [id number] [place] [address] [place] Erythrocyte distribution width (RBC) [Ratio] 18.7 % High 11.5-15.0 [facility] Comment on above: Order Comment: Speci men Type: BLOOD SPECIMENOrdering Facility: [facility] Address: [address] [place] [address] Performed By: #### 5 7021-8 ####[facility] [id number] [place] [address] [place] Hematocrit (Bld) [Volume fraction] 40.3 % Normal 36.0-46.0 [facility] Comment on above: Order Comment: Speci men Type: BLOOD SPECIMENOrdering Facility: [facility] Address: [address] [place] [address] Performed By: #### 5 7021-8 ####[facility] H[facility]ITALNCLIA [id number] [place] [address] [place] Hemoglobin (Bld) [Mass/Vol] 13.2 g/dL Normal 11.5-15.5 [facility] Comment on above: Order Comment: Speci men Type: BLOOD SPECIMENOrdering Facility: [facility] [facility] Address: [address] [place] [address] Performed By: #### 5 7021-8 ####[facility]ITALNCLIA [id number] [place] [address] [place] Immature granulocytes (Bld) [#/Vol] 0.05 10*3/uL Normal <0.10 [facility] Comment on above: Order Comment: Speci men Type: BLOOD SPECIMENOrdering Facility: [facility] Address: [address] [place] [address] Performed By: #### 5 7021-8 ####[facility] [id number] [place] [address] [place] Immature granulocytes/100 WBC (Bld) 0.4 % Normal [facility] Comment on above: Order Comment: Speci men Type: BLOOD SPECIMENOrdering Facility: [facility] Address: [address] [place] [address] Performed By: #### 5 7021-8 ####[facility] [id number] [place] [address] [place] Lymphocytes (Bld) [#/Vol] 2.60 10*3/uL Normal 1.00-4.00 [facility] Comment on above: Order Comment: Speci men Type: BLOOD SPECIMENOrdering Facility: [facility] Address: [address] [place] [address] Performed By: #### 5 7021-8 ####[facility] [id number] [place] [address] [place] Lymphocytes/100 WBC (Bld) 22.6 % Normal [facility] Comment on above: Order Comment: Speci men Type: BLOOD SPECIMENOrdering Facility: [facility] Address: [address] [place] [address] Performed By: #### 5 7021-8 ####[facility] [id number] [place] [address] [place] MCH (RBC) [Entitic mass] 25.8 pg Low 26.0-34.0 [facility] Comment on above: Order Comment: Speci men Type: BLOOD SPECIMENOrdering Facility: [facility] Address: [address] [place] [address] Performed By: #### 5 7021-8 ####[facility]ITALN[facility] [id number] [place] [address] [place] MCHC (RBC) [Mass/Vol] 32.8 g/dL Normal 30.5-36.0 [facility] Comment on above: Order Comment: Speci men Type: BLOOD SPECIMENOrdering Facility: [facility] Address: [address] [place], [place] [address] Performed By: #### 5 7021-8 ####[facility] [id number] [place] [address] [place] MCV (RBC) [Entitic vol] 78.7 fL Low 80.0-100.0 [facility] Comment on above: Order Comment: Speci men Type: BLOOD SPECIMENOrdering Facility: [facility] Address: [address] [place] [address] Performed By: #### 5 7021-8 ####[facility] [id number] [place] [address] [place] Monocytes (Bld) [#/Vol] 0.58 10*3/uL Normal <0.87 [facility] Comment on above: Order Comment: Speci men Type: BLOOD SPECIMENOrdering Facility: [facility] Address: [address] [place] [address] Performed By: #### 5 7021-8 ####[facility] [id number] [place] [address] [place] Monocytes/100 WBC (Bld) 5.0 % Normal [facility] Comment on above: Order Comment: Speci men Type: BLOOD SPECIMENOrdering Facility: [facility] Address: [address] [place] [address] Performed By: #### 5 7021-8 ####[facility] MILLTOWNCLIA [id number] [place] [address] [place] Neutrophils (Bld) [#/Vol] 8.02 10*3/uL High 1.45-7.50 [facility] Comment on above: Order Comment: Speci men Type: BLOOD SPECIMENOrdering Facility: [facility] Address: [address] [place] [address] Performed By: #### 5 7021-8 ####[facility] MILLWNCLIA [id number] [place] [address] [place] Neutrophils/100 WBC (Bld) 69.9 % Normal [facility] Comment on above: Order Comment: Speci men Type: BLOOD SPECIMENOrdering Facility: [facility] Address: [address] [place] [address] Performed By: #### 5 7021-8 ####[facility] HOSPITALWNCLIA [id number] [place] [address] [place] Nucleated RBC (Bld) [#/Vol] 10*3/uL Normal <0.01 [facility] Comment on above: Order Comment: Speci men Type: BLOOD SPECIMENOrdering Facility: [facility] Address: [address] [place] [address] Performed By: #### 5 7021-8 ####[facility] MILLTOWNCLIA [id number] [place] [address] [place] Nucleated RBC/100 WBC (Bld) [Ratio] 0.0 /100 WBC Normal [facility] Comment on above: Order Comment: Speci men Type: BLOOD SPECIMENOrdering Facility: [facility] Address: [address] [place] [address] Performed By: #### 5 7021-8 ####[facility]OSPITALNCA [id number] [place] [address] [place] Platelet mean volume (Bld) [Entitic vol] 9.4 fL Normal 9.0-12.7 [facility] Comment on above: Order Comment: Speci men Type: BLOOD SPECIMENOrdering Facility: [facility] Address: [address] [place] [address] Performed By: #### 5 7021-8 ####[facility]ITALA [id number] [place] [address] [place] Platelets (Bld) [#/Vol] 324 10*3/uL Normal 150-400 [facility] Comment on above: Order Comment: Speci men Type: BLOOD SPECIMENOrdering Facility: [facility] Address: [address] [place] [address] Performed By: #### 5 7021-8 ####[facility]ITALA [id number] [place] [address] [place] RBC (Bld) [#/Vol] 5.12 10*6/uL Normal 3.90-5.20 [facility] Comment on above: Order Comment: Speci men Type: BLOOD SPECIMENOrdering Facility: [facility] Address: [address] [place] [address] Performed By: #### 5 7021-8 ####[facility]PITALLIA [id number] [place] [address] [place] WBC (Bld) [#/Vol] 11.49 10*3/uL High 3.70-11.00 [facility] Comment on above: Order Comment: Speci men Type: BLOOD SPECIMENOrdering Facility: [facility] Address: [address] [place] [address] Performed By: #### 5 7021-8 ####[facility]ITALNCLIA [id number] [place] [address] [place] Ferritin SerPl-mCncon 2024 Ferritin [Mass/Vol] 167.0 ng/mL Normal 14.7-205.1 [facility] Comment on above: Order Comment: Speci men Type: BLOOD SPECIMENOrdering Facility: [facility] Address: [address] [place] [address] Performed By: #### 5 0190-8, 2132-01, 2275-08 ####[facility] LABCLIA [id number] [address] [address] [place] Iron and Iron binding capaci ty panelon 07-24-2024 Iron [Mass/Vol] 63 ug/dL Normal 41-186 [facility] Comment on above: Order Comment: Speci men Type: BLOOD SPECIMENOrdering Facility: [facility] Address: [address] [place] [address] Performed By: #### 5 0190-8, 2132-01, 2275-08 ####[facility] LABIA [id number] [place] [id number] [place] Iron binding capacity [Mass/Vol] 280 ug/dL Normal 232-386 [facility] Comment on above: Order Comment: Speci men Type: BLOOD SPECIMENOrdering Facility: [facility] Address: [address] [place] [address] Performed By: #### 5 0190-8, 2132-01, 2275-08 ####[facility] LABIA [id number] [place] [id number] [place] Iron/TIBC [Molar ratio] 22.5 % Normal 15.0-57.0 [facility] Comment on above: Order Comment: Speci men Type: BLOOD SPECIMENOrdering Facility: [facility] Address: [address] [place] [address] Performed By: #### 5 0190-8, 2132-01, 2275-08 ####[facility] LABCLIA [id number] [place] [address] [place] Methylmalonate SerPl-sCncon 07-24-2024 Methylmalonate [Moles/Vol] 0.08 umol/L Normal <=0.40 [facility] Comment on above: Order Comment: Speci men Type: BLOOD SPECIMENOrdering Facility: [facility] Address: [address] [place] [address] Result Comment: This test was developed, and its performance characteristics determined by the [facility] Department of Pathology and Laboratory Medicine. It has not been cleared or approved by the FDA. The [facility] Department of Pathology and Laboratory Medicine is regulated under CLIA as qualified to perform high-complexity testing. This test is used for clinical purposes. It should not be regarded as investigational or for research. Performed By: #### 1 3964-2 ####[facility] LABCLIA [id number] [place] [address] [place] Vit B12 SerPl-ncon 025 Cobalamin (Vitamin B12) [Mass/Vol] 442 pg/mL Normal 232-1245 [facility] Comment on above: Order Comment: Speci men Type: BLOOD SPECIMENOrdering Facility: [facility] Address: [address] [place] [address] Performed By: #### 5 0190-8, 2132-9, 2276-4 ####[facility] LABIA [id number] [place] [address] [place] CNOVon 07-06-2024 CNOV Normal [facility] 25(OH)D3 SerPl-ncon 2024 25-hydroxyvitamin D3 [Mass/Vol] 32.4 ng/mL Normal 31.0-80.0 [facility] Comment on above: Order Comment: Speci men Type: BLOOD SPECIMENOrdering Facility: [facility] Address: [address] [place] [address] Result Comment: Clas sification of 25 [place] Vitamin D status:Deficiency/Insufficiency: < or = 30 ng/ml.Sufficiency/Optimal Levels: 31-80 ng/mLToxicity: > 100 ng/mL.Test performed by chemiluminescent immunoassay. Performed By: #### 1 989-3 ####[facility] LABCLIA [id number] [place] [id number] [place] CNOVon 06-30-2024 CNOV Normal [facility] CNOVon 06-23-2024 CNOV Normal [facility] INFLUENZA A&B MOLECULAR (POC )on 06-23-2024 Flu A (POCT) Positive Abnormal Negative [facility] Comment on above: Location:[address], [place], [address] Interpretation and review of laboratory results Abnormal [facility] Procedural Control Valid [facility] Location:[address], [place], [place], [address] [place] [address] POINT OF CARE [facility] CNPNon 06-19-2024 CNPN Normal [facility] CNPNon 06-04-2024 CNPN Normal [facility] CNOVSPon 06-03-2024 CNOVSP Normal [facility] POLYSOMNOGRAM (PSG)/HOME SLE EP APNEA TEST (HSAT)on 05-26-2024 POLYSOMNOGRAM (PSG)/HOME SLEEP APNEA TEST (HSAT) Normal [facility] CNOVon 05-20-2024 CNOV Normal [facility] CBC W Auto Differential pane l (Bld)on 05-11-2024 Basophils (Bld) [#/Vol] 0.06 10*3/uL Normal <0.11 [facility] Comment on above: Order Comment: Speci men Type: BLOOD SPECIMENOrdering Facility: [facility] Address: [address] [place] [address] Performed By: #### 5 7021-8 ####[facility] [id number] [place] [address] [place] Basophils/100 WBC (Bld) 0.6 % Normal [facility] Comment on above: Order Comment: Speci men Type: BLOOD SPECIMENOrdering Facility: [facility] Address: [address] [place] [address] Performed By: #### 5 7021-8 ####[facility]ITALNCLIA [id number] [place] [address] [place] Differential cell count method Nom (Bld) Auto Normal [facility] Comment on above: Order Comment: Speci men Type: BLOOD SPECIMENOrdering Facility: [facility] Address: [address] [place] [address] Performed By: #### 5 7021-8 ####[facility] [id number] [place] [address] [place] Eosinophils (Bld) [#/Vol] 0.18 10*3/uL Normal <0.46 [facility] Comment on above: Order Comment: Speci men Type: BLOOD SPECIMENOrdering Facility: [facility] Address: [address] [place] [address] Performed By: #### 5 7021-8 ####[facility] [id number] [place] [address] [place] Eosinophils/100 WBC (Bld) 1.9 % Normal [facility] Comment on above: Order Comment: Speci men Type: BLOOD SPECIMENOrdering Facility: [facility] Address: [address] [place] [address] Performed By: #### 5 7021-8 ####[facility] [id number] [place] [address] [place] Erythrocyte distribution width (RBC) [Ratio] 14.8 % Normal 11.5-15.0 [facility] Comment on above: Order Comment: Speci men Type: BLOOD SPECIMENOrdering Facility: [facility] Address: [address] [place] [address] Performed By: #### 5 7021-8 ####[facility] HOS[facility]ITALNCLI [id number] [place] [address] [place] Hematocrit (Bld) [Volume fraction] 37.9 % Normal 36.0-46.0 [facility] Comment on above: Order Comment: Speci men Type: BLOOD SPECIMENOrdering Facility: [facility] Address: [address] [place] [address] Performed By: #### 5 7021-8 ####[facility]ITALNCM[facility] [id number] [place] [address] [place] Hemoglobin (Bld) [Mass/Vol] 11.6 g/dL Normal 11.5-15.5 [facility] Comment on above: Order Comment: Speci men Type: BLOOD SPECIMENOrdering Facility: [facility] Address: [address] [place] [address] Performed By: #### 5 7021-8 ####[facility]ITALN[facility] [id number] [place] [address] [place] Immature granulocytes (Bld) [#/Vol] 0.04 10*3/uL Normal <0.10 [facility] Comment on above: Order Comment: Speci men Type: BLOOD SPECIMENOrdering Facility: [facility] Address: [address] [place] [address] Performed By: #### 5 7021-8 ####[facility]ITALNCLIA [id number] [place] [address] [place] Immature granulocytes/100 WBC (Bld) 0.4 % Normal [facility] Comment on above: Order Comment: Speci men Type: BLOOD SPECIMENOrdering Facility: [facility] Address: [address] [place] [address] Performed By: #### 5 7021-8 ####[facility] HOSPITALNCA [id number] [place] [address] [place] Lymphocytes (Bld) [#/Vol] 2.39 10*3/uL Normal 1.00-4.00 [facility] Comment on above: Order Comment: Speci men Type: BLOOD SPECIMENOrdering Facility: [facility] Address: [address] [place] [address] Performed By: #### 5 7021-8 ####[facility] HOSPITALJENNA [id number] [place] [address] [place] Lymphocytes/100 WBC (Bld) 25.4 % Normal [facility] Comment on above: Order Comment: Speci men Type: BLOOD SPECIMENOrdering Facility: [facility] Address: [address] [place] [address] Performed By: #### 5 7021-8 ####[facility]ITALNCM[facility] [id number] [place] [address] [place] MCH (RBC) [Entitic mass] 22.7 pg Low 26.0-34.0 [facility] Comment on above: Order Comment: Speci men Type: BLOOD SPECIMENOrdering Facility: [facility] Address: [address] [place] [address] Performed By: #### 5 7021-8 ####[facility]ITALN[facility] [id number] [place] [address] [place] MCHC (RBC) [Mass/Vol] 30.6 g/dL Normal 30.5-36.0 [facility] Comment on above: Order Comment: Speci men Type: BLOOD SPECIMENOrdering Facility: [facility] Address: [address] [place] [address] Performed By: #### 5 7021-8 ####[facility]ITALN[facility] [id number] [place] [address] [place] MCV (RBC) [Entitic vol] 74.2 fL Low 80.0-100.0 [facility] Comment on above: Order Comment: Speci men Type: BLOOD SPECIMENOrdering Facility: [facility] Address: [address] [place] [address] Performed By: #### 5 7021-8 ####[facility] MILLTOWNCLIA [id number] [place] [address] [place] Monocytes (Bld) [#/Vol] 0.44 10*3/uL Normal <0.87 [facility] Comment on above: Order Comment: Speci men Type: BLOOD SPECIMENOrdering Facility: [facility] Address: [address] [place] [address] Performed By: #### 5 7021-8 ####[facility] HOSPITALWNCLIA [id number] [place] [address] [place] Monocytes/100 WBC (Bld) 4.7 % Normal [facility] Comment on above: Order Comment: Speci men Type: BLOOD SPECIMENOrdering Facility: [facility] Address: [address] [place] [address] Performed By: #### 5 7021-8 ####[facility] HOSPITALWNCLIA [id number] [place] [address] [place] Neutrophils (Bld) [#/Vol] 6.31 10*3/uL Normal 1.45-7.50 [facility] Comment on above: Order Comment: Speci men Type: BLOOD SPECIMENOrdering Facility: [facility] Address: [address] [place] [address] Performed By: #### 5 7021-8 ####[facility]ITALL[facility] [id number] [place] [address] [place] Neutrophils/100 WBC (Bld) 67.0 % Normal [facility] Comment on above: Order Comment: Speci men Type: BLOOD SPECIMENOrdering Facility: [facility] Address: [address] [place] [address] Performed By: #### 5 7021-8 ####[facility]ITALL[facility] [id number] [place] [address] [place] Nucleated RBC (Bld) [#/Vol] 10*3/uL Normal <0.01 [facility] Comment on above: Order Comment: Speci men Type: BLOOD SPECIMENOrdering Facility: [facility] Address: [address] [place] [address] Performed By: #### 5 7021-8 ####[facility]ITALNCM[facility] [id number] [place] [address] [place] Nucleated RBC/100 WBC (Bld) [Ratio] 0.0 /100 WBC Normal [facility] Comment on above: Order Comment: Speci men Type: BLOOD SPECIMENOrdering Facility: [facility] Address: [address] [place] [address] Performed By: #### 5 7021-8 ####[facility] [id number] [place] [address] [place] Platelet mean volume (Bld) [Entitic vol] 9.5 fL Normal 9.0-12.7 [facility] Comment on above: Order Comment: Speci men Type: BLOOD SPECIMENOrdering Facility: [facility] Address: [address] [place] [address] Performed By: #### 5 7021-8 ####[facility] [id number] [place] [address] [place] Platelets (Bld) [#/Vol] 384 10*3/uL Normal 150-400 [facility] Comment on above: Order Comment: Speci men Type: BLOOD SPECIMENOrdering Facility: [facility] Address: [address] [place] [address] Performed By: #### 5 7021-8 ####[facility] [id number] [place] [address] [place] RBC (Bld) [#/Vol] 5.11 10*6/uL Normal 3.90-5.20 [facility] Comment on above: Order Comment: Speci men Type: BLOOD SPECIMENOrdering Facility: [facility] Address: [address] [place] [address] Performed By: #### 5 7021-8 ####[facility]ITALNCLIA [id number] [place] [address] [place] WBC (Bld) [#/Vol] 9.42 10*3/uL Normal 3.70-11.00 [facility] Comment on above: Order Comment: Speci men Type: BLOOD SPECIMENOrdering Facility: [facility] Address: [address] [place] [address] Performed By: #### 5 7021-8 ####[facility]ITALNCLIA [id number] [place] [address] [place] Ferritin SerPl-ncon 2023 Ferritin [Mass/Vol] 11.5 ng/mL Low 14.7-205.1 [facility] Comment on above: Order Comment: Speci men Type: BLOOD SPECIMENOrdering Facility: [facility] Address: [address] [place] [address] Performed By: #### 5 0190-8, 2276-4 ####[facility] LABCLIA [id number] [place] [address] [place] Iron and Iron binding capaci ty panelon 05-11-2024 Iron [Mass/Vol] 31 ug/dL Low 41-186 [facility] Comment on above: Order Comment: Speci men Type: BLOOD SPECIMENOrdering Facility: [facility] Address: [address] [place] [address] Performed By: #### 5 0190-8, 2276-4 ####[facility] LABCLIA [id number] [place] [address] [place] Iron binding capacity [Mass/Vol] 419 ug/dL High 232-386 [facility] Comment on above: Order Comment: Speci men Type: BLOOD SPECIMENOrdering Facility: [facility] Address: [address] [place] [address] Performed By: #### 5 0190-8, 6-4 ####[facility] LABIA [id number] [place] [address] [place] Iron/TIBC [Molar ratio] 7.4 % Low 15.0-57.0 [facility] Comment on above: Order Comment: Speci men Type: BLOOD SPECIMENOrdering Facility: [facility] Address: [address] [place] [address] Performed By: #### 5 0190-8, 2275-4 ####[facility] LABIA [id number] [place] [address] [place] CNPNon 04-15-2024 CNPN Normal [facility] CNOVon 04-10-2024 CNOV Normal [facility] CNOVon 03-17-2024 CNOV Normal [facility] CNPNon 03-15-2024 CNPN Normal [facility] CBC W Auto Differential pane l (Bld)on 03-10-2024 Basophils (Bld) [#/Vol] 0.08 10*3/uL Normal <0.11 [facility] Comment on above: Order Comment: Speci men Type: BLOOD SPECIMENOrdering Facility: [facility] Address: [address] [place] [address] Performed By: #### 5 7021-8 ####[facility] HOSPITALWNCLIA [id number] [place] [address] [place] Basophils/100 WBC (Bld) 1.1 % Normal [facility] Comment on above: Order Comment: Speci men Type: BLOOD SPECIMENOrdering Facility: [facility] Address: [address] [place] [address] Performed By: #### 5 7021-8 ####[facility] HOSPITALWNCLIA [id number] [place] [address] [place] Differential cell count method Nom (Bld) Auto Normal [facility] [facility] Comment on above: Order Comment: Speci men Type: BLOOD SPECIMENOrdering Facility: [facility] Address: [address] [place] [address] Performed By: #### 5 7021-8 ####[facility] [id number] [place] [address] [place] Eosinophils (Bld) [#/Vol] 0.17 10*3/uL Normal <0.46 [facility] Comment on above: Order Comment: Speci men Type: BLOOD SPECIMENOrdering Facility: [facility] Address: [address] [place] [address] Performed By: #### 5 7021-8 ####[facility] [id number] [place] [address] [place] Eosinophils/100 WBC (Bld) 2.3 % Normal [facility] Comment on above: Order Comment: Speci men Type: BLOOD SPECIMENOrdering Facility: [facility] Address: [address] [place] [address] Performed By: #### 5 7021-8 ####[facility] [id number] [place] [address] [place] Erythrocyte distribution width (RBC) [Ratio] 15.2 % High 11.5-15.0 [facility] Comment on above: Order Comment: Speci men Type: BLOOD SPECIMENOrdering Facility: [facility] Address: [address] [place] [address] Performed By: #### 5 7021-8 ####[facility] [id number] [place] [address] [place] Hematocrit (Bld) [Volume fraction] 36.5 % Normal 36.0-46.0 [facility] Comment on above: Order Comment: Speci men Type: BLOOD SPECIMENOrdering Facility: [facility] Address: [address] [place] [address] Performed By: #### 5 7021-8 ####[facility] CAROLINEWNCLIA [id number] [place] [address] [place] Hemoglobin (Bld) [Mass/Vol] 11.4 g/dL Low 11.5-15.5 [facility] Comment on above: Order Comment: Speci men Type: BLOOD SPECIMENOrdering Facility: [facility] Address: [address] [place] [address] Performed By: #### 5 7021-8 ####[facility] H[facility]PITALWNCLIA [id number] [place] [address] [place] Immature granulocytes (Bld) [#/Vol] 10*3/uL Normal <0.10 [facility] Comment on above: Order Comment: Speci men Type: BLOOD SPECIMENOrdering Facility: [facility] Address: [address] [place] [address] Performed By: #### 5 7021-8 ####[facility]ITAL[facility]CL[facility] [id number] [place] [address] [place] Immature granulocytes/100 WBC (Bld) 0.1 % Normal [facility] Comment on above: Order Comment: Speci men Type: BLOOD SPECIMENOrdering Facility: [facility] Address: [address] [place] [address] Performed By: #### 5 7021-8 ####[facility] HOSPITALWNCLIA [id number] [place] [address] [place] Lymphocytes (Bld) [#/Vol] 2.50 10*3/uL Normal 1.00-4.00 [facility] Comment on above: Order Comment: Speci men Type: BLOOD SPECIMENOrdering Facility: [facility] Address: [address] [place] [address] Performed By: #### 5 7021-8 ####[facility]ITALNCLIA [id number] [place] [address] [place] Lymphocytes/100 WBC (Bld) 33.3 % Normal [facility] Comment on above: Order Comment: Speci men Type: BLOOD SPECIMENOrdering Facility: [facility] Address: [address] [place] [address] Performed By: #### 5 7021-8 ####[facility] [id number] [place] [address] [place] MCH (RBC) [Entitic mass] 23.2 pg Low 26.0-34.0 [facility] Comment on above: Order Comment: Speci men Type: BLOOD SPECIMENOrdering Facility: [facility] Address: [address] [place] [address] Performed By: #### 5 7021-8 ####[facility] [id number] [place] [address] [place] MCHC (RBC) [Mass/Vol] 31.2 g/dL Normal 30.5-36.0 [facility] Comment on above: Order Comment: Speci men Type: BLOOD SPECIMENOrdering Facility: [facility] Address: [address] [place] [address] Performed By: #### 5 7021-8 ####[facility] [id number] [place] [address] [place] MCV (RBC) [Entitic vol] 74.2 fL Low 80.0-100.0 [facility] Comment on above: Order Comment: Speci men Type: BLOOD SPECIMENOrdering Facility: [facility] Address: [address] [place] [address] Performed By: #### 5 7021-8 ####[facility] [id number] [place] [address] [place] Monocytes (Bld) [#/Vol] 0.44 10*3/uL Normal <0.87 [facility] Comment on above: Order Comment: Speci men Type: BLOOD SPECIMENOrdering Facility: [facility] Address: [address] [place] [address] Performed By: #### 5 7021-8 ####[facility] [id number] [place] [address] [place] Monocytes/100 WBC (Bld) 5.9 % Normal [facility] Comment on above: Order Comment: Speci men Type: BLOOD SPECIMENOrdering Facility: [facility] Address: [address] [place] [address] Performed By: #### 5 7021-8 ####[facility] [id number] [place] [address] [place] Neutrophils (Bld) [#/Vol] 4.30 10*3/uL Normal 1.45-7.50 [facility] Comment on above: Order Comment: Speci men Type: BLOOD SPECIMENOrdering Facility: [facility] Address: [address] [place] [address] Performed By: #### 5 7021-8 ####[facility] [id number] [place] [address] [place] Neutrophils/100 WBC (Bld) 57.3 % Normal [facility] Comment on above: Order Comment: Speci men Type: BLOOD SPECIMENOrdering Facility: [facility] Address: [address] [place] [address] Performed By: #### 5 7021-8 ####[facility] [id number] [place] [address] [place] Nucleated RBC (Bld) [#/Vol] 10*3/uL Normal <0.01 [facility] Comment on above: Order Comment: Speci men Type: BLOOD SPECIMENOrdering Facility: [facility] Address: [address] [place] [address] Performed By: #### 5 7021-8 ####[facility] MANJEETLIA [id number] [place] [address] [place] Nucleated RBC/100 WBC (Bld) [Ratio] 0.0 /100 WBC Normal [facility] Comment on above: Order Comment: Speci men Type: BLOOD SPECIMENOrdering Facility: [facility] Address: [address] [place] [address] Performed By: #### 5 7021-8 ####[facility] CAROLINECADDO GAPNCLIA [id number] [place] [address] [place] Platelet mean volume (Bld) [Entitic vol] 9.9 fL Normal 9.0-12.7 [facility] Comment on above: Order Comment: Speci men Type: BLOOD SPECIMENOrdering Facility: [facility] Address: [address] [place] [address] Performed By: #### 5 7021-8 ####[facility]ITALNCLIA [id number] [place] [address] [place] Platelets (Bld) [#/Vol] 394 10*3/uL Normal 150-400 [facility] Comment on above: Order Comment: Speci men Type: BLOOD SPECIMENOrdering Facility: [facility] Address: [address] [place] [address] Performed By: #### 5 7021-8 ####[facility] CAROLINECADDO GAPNCLIA [id number] [place] [address] [place] RBC (Bld) [#/Vol] 4.92 10*6/uL Normal 3.90-5.20 [facility] Comment on above: Order Comment: Speci men Type: BLOOD SPECIMENOrdering Facility: [facility] Address: [address] [place] [address] Performed By: #### 5 7021-8 ####[facility] FOR REHABILITATIONLIA [id number] [place] [address] [place] WBC (Bld) [#/Vol] 7.50 10*3/uL Normal 3.70-11.00 [facility] Comment on above: Order Comment: Speci men Type: BLOOD SPECIMENOrdering Facility: [facility] Address: [address] [place] [address] Performed By: #### 5 7021-8 ####[facility] [id number] [place] [address] [place] [facility] 2023 Ferritin [Mass/Vol] 15.6 ng/mL Normal 14.7-205.1 [facility] Comment on above: Order Comment: Speci men Type: BLOOD SPECIMENOrdering Facility: [facility] Address: [address] [place] [address] Performed By: #### 5 0190-8, 2132-01, 2275-08 ####[facility] LABCLIA [id number] [place] [address] [place] Iron and Iron binding capaci panelon 03-10-2024 Iron [Mass/Vol] 19 ug/dL Low 41-186 [facility] Comment on above: Order Comment: Speci men Type: BLOOD SPECIMENOrdering Facility: [facility] Address: [address] [place] [address] Performed By: #### 5 0190-8, 2132-01, 2275-08 ####[facility] LABCLIA [id number] [place] [address] [place] Iron binding capacity [Mass/Vol] 358 ug/dL Normal 232-386 [facility] Comment on above: Order Comment: Speci men Type: BLOOD SPECIMENOrdering Facility: [facility] Address: [address] [place] [address] Performed By: #### 5 0190-8, 2132-01, 2275-08 ####[facility] LABIA [id number] [place] [id number] [place] Iron/TIBC [Molar ratio] 5.3 % Low 15.0-57.0 [facility] Comment on above: Order Comment: Speci men Type: BLOOD SPECIMENOrdering Facility: [facility] Address: [address] [place] [address] Performed By: #### 5 0190-8, 2132-9, 6-4 ####[facility] LABIA [id number] [place] [address] [place] PLATELET FUNCTION SCREENon 1 Platelet function (closure time) collagen+ADP induced (Bld) [Time] 109 CT (seconds) Normal <118 [facility] Comment on above: Order Comment: Speci men Type: BLOOD SPECIMENOrdering Facility: [facility] Address: [address] [place] [address] Performed By: #### P LTSCN ####[facility] [id number] [address] [place] Platelet function (closure time) collagen+EPINEPHrine induced (Bld) [Time] 148 CT (seconds) Normal <194 [facility] Comment on above: Order Comment: Speci men Type: BLOOD SPECIMENOrdering Facility: [facility] Address: [address] [place] [address] Performed By: #### P LTSCN ####[facility] [id number] [place] [id number] [place] PT panel Coag (PPP)on 2023 INR Coag (PPP) [Relative time] 0.9 {INR} Normal 0.9-1.3 [facility] Comment on above: Order Comment: Speci men Type: BLOOD SPECIMENOrdering Facility: [facility] Address: [address] [place] [address] Result Comment: Ratna min K Antagonist (VKA) Therapeutic Range: INR 2 to 3 (Target INR of 2.5)Note: For patients treated with VKA drugs, such as warfarin, the [place] [employer] 2012 Guideline recommends a therapeutic INR range of 2 to 3 (target INR of 2.5). This recommendation includes high-risk patients with antiphospholipid syndrome with previous arterial or venous thromboembolism, current-generation mechanical or bioprosthetic aortic heart valve replacement.Note: Patients with mechanical aortic valve replacement and additional risk factors for thromboembolic events (atrial fibrillation, previous thromboembolism, LV dysfunction, hypercoagulable conditions) or an older generation mechanical AVR (i.e., ball in-Cage) or any mechanical MVR should have a INR therapeutic range of 2.5 to 3.5 (target INR of 3).Kimberly GH, et al. Chest 2012, 141:7S-47SNishimura RA, et al. [facility] 2017, 70: 252-289 Performed By: #### 1 4979-9, 16406-3 ####[facility] [id number] [place] [address] [place] PT Coag (PPP) [Time] 9.7 s Normal <13.1 [facility] Comment on above: Order Comment: Juan Ramon vidal Type: BLOOD SPECIMENOrdering Facility: [facility] Address: [address] [place] [address] Performed By: #### 1 4979-9, 67833-8 ####[facility] [id number] [place] [address] [place] TYPE + SCREENon 03-10-2024 ABO O Normal [facility] Comment on above: Order Comment: Speci men Type: BLOOD SPECIMENOrdering Facility: [facility] Address: [address] [place] [address] Performed By: #### T SCR ####[facility] BANKCLIA [id number] [place] [address] [place] Rh Nom (Bld) Negative Normal [facility] Comment on above: Order Comment: Speci men Type: BLOOD SPECIMENOrdering Facility: [facility] Address: [address] [place] [address] Performed By: #### T SCR ####[facility] BLOOD [facility] [id number] [place] [id number] [facility] [place] TYPE AND SCREEN EXPIRATION 03/13/2024 23:59 Normal [facility] Comment on above: Order Comment: Speci men Type: BLOOD SPECIMENOrdering Facility: [facility] Address: [address] [place] [address] Performed By: #### T SCR ####[facility] BLOOD [facility] [id number] [address] [place] VON WIL[place]AND PNL (VWFPN)on 03-10-2024 Bound rFVIII/vWf Ag IA (P) [Relative ratio] 2.0 Normal >=0.5 [facility] Comment on above: Order Comment: Speci men Type: BLOOD SPECIMENOrdering Facility: [facility] Address: [address] [place] [address] Performed By: #### L [id number] ####[facility] [id number] [place] [address] [place] Coagulation factor VIII activity actual/normal Coag (PPP) [Relative time] 124 % Normal 50-173 [facility] Comment on above: Order Comment: Speci men Type: BLOOD SPECIMENOrdering Facility: [facility] Address: [address] [place] [address] Performed By: #### L [id number] ####[facility] [id number] [place] [id number] [place] GPIBM ACTIVITY 60 % Normal 44-156 [facility] Comment on above: Order Comment: Speci men Type: BLOOD SPECIMENOrdering Facility: [facility] Address: [address] [place] [address] Result Comment: This test was developed, and its performance characteristics determined by the [facility] Department of Pathology and Laboratory Medicine. It has not been cleared or approved by the FDA. The [facility] Department of Pathology and Laboratory Medicine is regulated under CLIA as qualified to perform high-complexity testing. This test is used for clinical purposes. It should not be regarded as investigational or for research. Performed By: #### L [id number] ####[facility] [id number] [address] [place] Platelet aggregation ristocetin induced Ql (PRP) Normal dose response Normal Normal dose response [facility] Comment on above: Order Comment: Speci men Type: BLOOD SPECIMENOrdering Facility: [facility] Address: [address] [place] [address] Performed By: #### L [id number] ####[facility] [id number] [address] [place] vWf Ag actual/normal IA (PPP) [Relative mass conc] 62 % Normal 50-173 [facility] Comment on above: Order Comment: Speci marcy Type: BLOOD SPECIMENOrdering Facility: [facility] Address: [address] [place] [address] Performed By: #### L [id number] ####[facility] [id number] [address] vWf multimers Ql (PPP) Normal [facility] Comment on above: Order Comment: Juan Ramon [facility] Type: BLOOD SPECIMENOrdering Facility: [facility] Address: [address] [place] [address] Result Comment: Assa y of von Willebrand multimers was performed by an agarose gel electrophoresis followed by immunofixation with anti-von Willebrand factor antiserum.There is a normal multimer distribution with low intensity of bands.Reviewed by Elena Roman M.D., Ph.D.This test was developed, and its performance characteristics determined by the [facility] Department of Pathology and Laboratory Medicine. It has not been cleared or approved by the FDA. The [facility] Department of Pathology and Laboratory Medicine is regulated under CLIA as qualified to perform high-complexity testing. This test is used for clinical purposes. It should not be regarded as investigational or for research. Performed By: #### L [id number] ####[facility] LABIA [id number] [address] [place] vWf ristocetin cofactor act/vWf Ag (PPP) [Ratio] 0.7 Normal >=0.5 [facility] Comment on above: Order Comment: Speci men Type: BLOOD SPECIMENOrdering Facility: [facility] Address: [address] [place] [address] Performed By: #### L [id number] ####[facility] [id number] [address] [facility] vWf ristocetin cofactor Qn (PPP) 42 % Normal 42-146 [facility] Comment on above: Order Comment: Juan Ramon vidal Type: BLOOD SPECIMENOrdering Facility: [facility] Address: [address] [place] [address] Result Comment: This test was developed, and its performance characteristics determined by the [facility] Department of Pathology and Laboratory Medicine. It has not been cleared or approved by the FDA. The [facility] Department of Pathology and Laboratory Medicine is regulated under CLIA as qualified to perform high-complexity testing. This test is used for clinical purposes. It should not be regarded as investigational or for research. Performed By: #### L [id number] ####[facility] LABIA [id number] [address] vWf.collagen binding activity actual/normal IA (PPP) [Relative ratio] 45 % Normal 41-161 [facility] Comment on above: Order Comment: Jocelynei marcy Type: BLOOD SPECIMENOrdering Facility: [facility] Address: [address] [place] [address] Result Comment: This test was developed, and its performance characteristics determined by the [facility] Department of Pathology and Laboratory Medicine. It has not been cleared or approved by the FDA. The [facility] Department of Pathology and Laboratory Medicine is regulated under CLIA as qualified to perform high-complexity testing. This test is used for clinical purposes. It should not be regarded as investigational or for research. Performed By: #### L [id number] ####[facility] [id number] [place] [id number] [place] vWf.collagen binding activity/vWf Ag IA (PPP) [Ratio] 0.7 Normal >=0.6 [facility] Comment on above: Order Comment: Speci men Type: BLOOD SPECIMENOrdering Facility: [facility] Address: [address] [place] [address] Performed By: #### L [id number] ####[facility] [id number] [place] [id number] [place] Vit B12 SerP-[facility] 024 Cobalamin (Vitamin B12) [Mass/Vol] 437 pg/mL Normal 232-1245 [facility] Comment on above: Order Comment: Speci men Type: BLOOD SPECIMENOrdering Facility: [facility] Address: [address] [place] [address] Performed By: #### 5 0190-8, 2132-9, 2276-4 ####[facility] [id number] [place] [address] [place] aPTT PPPon 03-10-2024 aPTT Coag (PPP) [Time] 29.5 s Normal 23.0-32.4 [facility] Comment on above: Order Comment: Speci men Type: BLOOD SPECIMENOrdering Facility: [facility] Address: [address] [place] [address] Performed By: #### 1 4979-9, 14749-7 ####[facility] [id number] [place] [address] [place] 25(OH)D3 SerPl-ncon 2023 25-hydroxyvitamin D3 [Mass/Vol] 9.6 ng/mL Low 31.0-80.0 [facility] Comment on above: Order Comment: Speci men Type: BLOOD SPECIMENOrdering Facility: [facility] Address: [address] [place] [address] Performed By: #### 1 989-3 ####[facility] LABCLIA [id number] [facility] [place] [address] [place] CNOVon 03-02-2024 CNOV Normal [facility] metabolic 2000 panelOrdered By: Veronica Lam on 03-02-2024 Albumin [Mass/Vol] 4.4 g/dL 3.9 - 4.9 g/dL [facility] ALP [Catalytic activity/Vol] 107 U/L 34 - 123 U/L [facility] ALT [Catalytic activity/Vol] 11 U/L 7 - 38 U/L [facility] Anion gap [Moles/Vol] 10 mmol/L 8 - 15 mmol/L [facility] AST [Catalytic activity/Vol] 11 U/L Low 13 - 35 U/L [facility] Bilirubin [Mass/Vol] 0.4 mg/dL 0.2 - 1 .3 mg/dL [facility] Calcium [Mass/Vol] 9.4 mg/dL 8.5 - 10. 2 mg/dL [facility] Chloride [Moles/Vol] 103 mmol/L 98 - 10 7 mmol/L [facility] CO2 [Moles/Vol] 24 mmol/L 22 - 30 mmol/L [facility] Creatinine [Mass/Vol] 0.77 mg/dL 0.58 - 0.96 mg/dL [facility] GFR/1.73 sq M.predicted among non-blacks MDRD (S/P/Bld) [Vol rate/Area] 107 mL/min/{1.73_m2} - PINF [facility] Comment on above: Estimated Glomerular Filtration Rate (eGFR) is calculated using the 2020 CKD-EPI creatinine equation. This equation utilizes serum creatinine, sex, and age as parameters. The creatinine assay has traceable calibration to isotope dilution-mass spectrometry. Refer to KDIGO guidelines for clinical interpretation. In patients with unstable renal function, e.g. those with acute kidney injury, the eGFR may not accurately reflect actual GFR. Glucose [Mass/Vol] 91 mg/dL 74 - 99 mg/dL [facility] Comment on above: The [place] [employer] Association (ADA) provides guidance for cutoff values for fasting glucose and random glucose. The ADA defines fasting as no caloric intake for at least 8 hours. Fasting plasma glucose results between 100 to 125 mg/dL indicate increased risk for diabetes (prediabetes). Fasting plasma glucose results greater than or equal to 126 mg/dL meet the criteria for diagnosis of diabetes. In the absence of unequivocal hyperglycemia, results should be confirmed by repeat testing. In a patient with classic symptoms of hyperglycemia or hyperglycemic crisis, random plasma glucose results greater than or equal to 200 mg/dL meet the criteria for diagnosis of diabetes. Reference: Standards of Medical Care in Diabetes 2016, [place] Diabetes Association. Diabetes Care. 2016.39(Suppl 1). Interpretation and review of laboratory results Abnormal [facility] Potassium [Moles/Vol] 3.9 mmol/L 3.7 - 5.1 mmol/L [facility] Protein [Mass/Vol] 8.0 g/dL 6.3 - 8.0 g/dL [facility] Sodium [Moles/Vol] 137 mmol/L 136 - 144 mmol/L [facility] Urea nitrogen [Mass/Vol] 12 mg/dL 7 - 21 mg/dL [facility] Comprehensive metabolic 2000 panelon 03-02-2024 Albumin [Mass/Vol] 4.4 g/dL Normal 3.9-4.9 [facility] Comment on above: Order Comment: Speci men Type: BLOOD SPECIMENOrdering Facility: [facility] Address: [address] [place] [address] Performed By: #### 2 4323-8 ####[facility] [id number] [place] [address] [place] ALP [Catalytic activity/Vol] 107 U/L Normal 34-123 [facility] Comment on above: Order Comment: Speci men Type: BLOOD SPECIMENOrdering Facility: [facility] Address: [address] [place] [address] Performed By: #### 2 4323-8 ####[facility] [id number] [place] [address] [place] ALT [Catalytic activity/Vol] 11 U/L Normal 7-38 [facility] Comment on above: Order Comment: Speci men Type: BLOOD SPECIMENOrdering Facility: [facility] Address: [address] [place] [address] Performed By: #### 2 4323-8 ####[facility] ANEUDY MILLTOWNCLIA [id number] [place] [address] [place] Anion gap [Moles/Vol] 10 mmol/L Normal 8-15 [facility] Comment on above: Order Comment: Speci men Type: BLOOD SPECIMENOrdering Facility: [facility] Address: [address] [place] [address] Performed By: #### 2 4323-8 ####[facility]PITALWNCLIA [id number] [place] [address] [place] AST [Catalytic activity/Vol] 11 U/L Low 13-35 [facility] Comment on above: Order Comment: Speci men Type: BLOOD SPECIMENOrdering Facility: [facility] Address: [address] [place] [address] Performed By: #### 2 4323-8 ####[facility] MILLWNCLIA [id number] [place] [address] [place] Bilirubin [Mass/Vol] 0.4 mg/dL Normal 0.2-1.3 [facility] Comment on above: Order Comment: Speci men Type: BLOOD SPECIMENOrdering Facility: [facility] Address: [address] [place] [address] Performed By: #### 2 4323-8 ####[facility] MILLTOWNCLIA [id number] [place] [address] [place] Calcium [Mass/Vol] 9.4 mg/dL Normal 8.5-10.2 [facility] Comment on above: Order Comment: Speci men Type: BLOOD SPECIMENOrdering Facility: [facility] Address: [address] [place] [address] Performed By: #### 2 4323-8 ####[facility]ITAL[facility]CL[facility] [id number] [place] [address] [place] Chloride [Moles/Vol] 103 mmol/L Normal 98-107 [facility] Comment on above: Order Comment: Speci men Type: BLOOD SPECIMENOrdering Facility: [facility] Address: [address] [place] [address] Performed By: #### 2 4323-8 ####[facility]IT[facility] [id number] [place] [address] [place] CO2 [Moles/Vol] 24 mmol/L Normal 22-30 [facility] Comment on above: Order Comment: Speci men Type: BLOOD SPECIMENOrdering Facility: [facility] Address: [address] [place] [address] Performed By: #### 2 4323-8 ####[facility] [id number] [place] [address] [place] Creatinine [Mass/Vol] 0.77 mg/dL Normal 0.58-0.96 [facility] Comment on above: Order Comment: Speci men Type: BLOOD SPECIMENOrdering Facility: [facility] Address: [address] [place] [address] Performed By: #### 2 4323-8 ####[facility] [id number] [place] [address] [facility] Creatinine and Glomerular filtration rate.predicted panel (S/P/Bld) 107 mL/min/1.73m??? Normal >=60 [facility] Comment on above: Order Comment: Speci men Type: BLOOD SPECIMENOrdering Facility: [facility] Address: [address] [place] [address] Result Comment: Shy mated Glomerular Filtration Rate (eGFR) is calculated using the 2020 CKD-EPI creatinine equation. This equation utilizes serum creatinine, sex, and age as parameters. The creatinine assay has traceable calibration to isotope dilution-mass spectrometry. Refer to KDIGO guidelines for clinical interpretation. In patients with unstable renal function, e.g. those with acute kidney injury, the eGFR may not accurately reflect actual GFR. Performed By: #### 2 4323-8 ####[facility] [id number] [place] [address] [place] Glucose [Mass/Vol] 91 mg/dL Normal 74-99 [facility] Comment on above: Order Comment: Speci men Type: BLOOD SPECIMENOrdering Facility: [facility] Address: [address] [place] [id number] Result Comment: The [place] Diabetes Association (ADA) provides guidance for cutoff values for fasting glucose and random glucose. The ADA defines fasting as no caloric intake for at least 8 hours. Fasting plasma glucose results between 100 to 125 mg/dL indicate increased risk for diabetes (prediabetes).Fasting plasma glucose results greater than or equal to 126 mg/dL meet the criteria for diagnosis of diabetes. In the absence of unequivocal hyperglycemia, results should be confirmed by repeat testing. In a patient with classic symptoms of hyperglycemia or hyperglycemic crisis, random plasma glucose results greater than or equal to 200 mg/dL meet the criteria for diagnosis of diabetes.Reference: Standards of Medical Care in Diabetes 2016, [place] Diabetes Association. Diabetes Care. 2016.39(Suppl 1). Performed By: #### 2 4323-8 ####[facility] [id number] [place] [address] [place] Potassium [Moles/Vol] 3.9 mmol/L Normal 3.7-5.1 [facility] Comment on above: Order Comment: Speci men Type: BLOOD SPECIMENOrdering Facility: [facility] Address: [address] [place] [address] Performed By: #### 2 4323-8 ####[facility] [id number] [place] [address] [place] Protein [Mass/Vol] 8.0 g/dL Normal 6.3-8.0 [facility] Comment on above: Order Comment: Speci men Type: BLOOD SPECIMENOrdering Facility: [facility] Address: [address] [place] [address] Performed By: #### 2 4323-8 ####[facility] [id number] [place] [address] [place] Sodium [Moles/Vol] 137 mmol/L Normal 136-144 [facility] Comment on above: Order Comment: Speci men Type: BLOOD SPECIMENOrdering Facility: [facility] Address: [address] [place] [address] Performed By: #### 2 4323-8 ####[facility] [id number] [place] [address] [place] Urea nitrogen [Mass/Vol] 12 mg/dL Normal 7-21 [facility] Comment on above: Order Comment: Speci men Type: BLOOD SPECIMENOrdering Facility: [facility] Address: [address] [place] [address] Performed By: #### 2 4323-8 ####[facility] [id number] [place] [address] [place] HbA1c (Bld)on 03-02-2024 Average glucose Estimated from glycated hemoglobin (Bld) [Mass/Vol] 97 mg/dL Normal [facility] Comment on above: Order Comment: Speci men Type: BLOOD SPECIMENOrdering Facility: [facility] Address: [address] [place] [address] Result Comment: eAG: (Estimated average glucose) is a calculated value from HgbA1c and is aircraft sales representative of the average blood glucose level in the last 2-3 month period. Performed By: #### 5 5454-3 ####[facility] LABCLIA [id number] [place] [address] [place] HbA1c (Bld) [Mass fraction] 5.0 % Normal 4.3-5.6 [facility] Comment on above: Order Comment: Speci men Type: BLOOD SPECIMENOrdering Facility: [facility] Address: [address] [place] [address] Result Comment: [place] Diabetes Association guidelines indicate that patients with HgbA1c in the range 5.7-6.4% are at increased risk for development of diabetes, and intervention by lifestyle modification may be beneficial. HgbA1c greater or equal to 6.5% is considered diagnostic of diabetes. Performed By: #### 5 5454-3 ####[facility] LABCLIA [id number] [place] [address] [place] INSULIN ASSAY BLOODon 2023 Insulin Qn 18.9 u[IU]/mL 3.0 - 25.0 mU/L [facility] Insulin Qnon 03-02-2024 Interpretation and review of laboratory results Normal [facility] Insulin SerPl-aCncon 024 Insulin Qn 18.9 u[IU]/mL Normal 3.0-25.0 [facility] Comment on above: Order Comment: Speci men Type: BLOOD SPECIMENOrdering Facility: [facility] Address: [address] [place] [address] Performed By: #### 2 0448-7 ####[facility] LABCLIA [id number] [place] [address] [place] Lipid 1996 panelon 4 Cholesterol [Mass/Vol] 176 mg/dL Normal <200 [facility] Comment on above: Order Comment: Speci men Type: BLOOD SPECIMENOrdering Facility: [facility] Address: [address] [place] [address] Result Comment: <200 mg/dL, Desirable 200-239 mg/dL, Borderline high>239 mg/dL, High Performed By: #### 2 4331-1 ####[facility] LABCLIA [id number] [place] [id number] [place] [facility] [id number] [place] [address] [place] Cholesterol in HDL [Mass/Vol] 44 mg/dL Normal >39 [facility] Comment on above: Order Comment: Speci men Type: BLOOD SPECIMENOrdering Facility: [facility] Address: [address] [place] [address] Result Comment: 40-5 9 mg/dL, Acceptable>59 mg/dL, High: Negative risk factor for coronary heart disease<40 mg/dL, Low: Positive risk factor for coronary heart disease Performed By: #### 2 4331-1 ####[facility] LABCLIA [id number] [id number] [place] [address] [place] Cholesterol in LDL [Mass/Vol] 114 mg/dL High <100 [facility] Comment on above: Order Comment: Speci men Type: BLOOD SPECIMENOrdering Facility: [facility] Address: [address] [place] [address] Result Comment: <100 mg/dL, Optimal 100-129 mg/dL, Near optimal/above optimal 130-159 mg/dL, Borderline high 160-189 mg/dL, High>189 mg/dL, Very highSecondary prevention optimal LDL Cholesterol levels are recommended to be < 70 mg/dL Performed By: #### 2 4331-1 ####[facility] LABCLIA [id number] [address] [id number] [place] [address] [place] Cholesterol in LDL/Cholesterol in HDL [Mass ratio] 2.59 {ratio} High <2.54 [facility] Comment on above: Order Comment: Speci men Type: BLOOD SPECIMENOrdering Facility: [facility] Address: [address] [place] [address] Result Comment: Refe rence:1. National Cholesterol Education Program ATP III Guideline At-A-Glance Quick Desk Reference: National Heart, Lung, and Blood [place]. National Institutes of Health. 2001: NIH Publication No. 01-3305.2. An International Atherosclerosis Society position paper: global recommendations for the management of dyslipidemia: executive summary, Atherosclerosis. 2014: 232(2):410-413. Performed By: #### 2 4331-1 ####[facility] LABCLIA [id number] [address] [id number] [place] [address] [place] Cholesterol in VLDL [Mass/Vol] 18 mg/dL Normal <30 [facility] Comment on above: Order Comment: Speci men Type: BLOOD SPECIMENOrdering Facility: [facility] Address: [address] [place] [address] Performed By: #### 2 4331-1 ####[facility] LABCLIA [id number] [address] [id number] [place] [address] [place] Cholesterol non HDL [Mass/Vol] 132 mg/dL High <130 [facility] Comment on above: Order Comment: Jocelynei men Type: BLOOD SPECIMENOrdering Facility: [facility] Address: [address] [place] [address] Result Comment: <130 mg/dL, Optimal 130-159 mg/dL, Near optimal/above optimal 160-189 mg/dL, Borderline high 190-219 mg/dL, High>219 mg/dL, Very highSecondary prevention optimal non HDL Cholesterol levels are recommended to be <100 mg/dL Performed By: #### 2 4331-1 ####[facility] LABCLIA [id number] [address] [id number] [place] [address] [place] Cholesterol.total/Cho lesterol in HDL [Mass ratio] 4.00 {ratio} Normal <5.10 [facility] Comment on above: Order Comment: Speci men Type: BLOOD SPECIMENOrdering Facility: [facility] Address: [address] [place] [address] Performed By: #### 2 4331-1 ####[facility] LABCLIA [id number] [address] [id number] [address] STATES OF [facility] FASTING TIME 12 hrs Normal [facility] Comment on above: Order Comment: Speci men Type: BLOOD SPECIMENOrdering Facility: [facility] Address: [address] [place] [address] Performed By: #### 2 4331-1 ####[facility] LABCLIA [id number] [address] [id number] [place] [address] [place] Triglyceride [Mass/Vol] 88 mg/dL Normal <150 [facility] Comment on above: Order Comment: Speci men Type: BLOOD SPECIMENOrdering Facility: [facility] Address: [address] [place] [address] Result Comment: <150 mg/dL, Normal 150-199 mg/dL, Borderline high 200-499 mg/dL, High>499 mg/dL, Very high Performed By: #### 2 4331-1 ####[facility] LABCLIA [id number] [address] [id number] [place] [address] [place] Pelvison 01-06-2024 Indication Pelvic pain, IUD placement Impression Normal appearing anteverted uterus that measures 83 mm x 42 mm x 57 mm. Endometrium measures 3.8 mm and contains a 3 x 4 x 4 mm echogenic focus. Comparison to ultrasound on 11/12/2023 indicates that echogenic focus was not visualized at that time. Most likely etiology of the echogenic focus is resolving clot. 3D rendering of the uterus confirms the proper location of the IUD within the endometrial cavity. Both ovaries are visualized and appear normal with follicular change. No adnexal masses were observed. There is no free fluid visualized in the peritoneal cavity. Recommendations Follow up as clinically indicated. History Medical History Surgery: D & C 2023 Details: w/ polypectomy and IUD insertion Menstrual History Cycle: LMP date not known. Contraception: Intrauterine contraceptive device Method Transabdominal, transvaginal, 3D ultrasound examination, Color Doppler examination. View: Adequate visualization Uterus Uterus: Visualized Uterus position: anteverted Description of uterine malformations: none Myometrium: heterogeneous Endometrium: small echogenic structure within endo with slight shadowing ?? calcification, measures approx 3 mm x 4 mm x 4 mm Cervix details: normal Uterus length 83 mm Uterus width 57 mm Uterus height 42 mm Uterus Vol 104.0 cm Endometrial thickness, total 3.8 mm Fibroids: No fibroids identified Polyps: No polyps identified IUCD Position control IUCD type: Claudia. Location: positioned correctly at the fundus of the uterus Right Ovary Rt ovary: Visualized Rt ovary morphology: premenopausal with dominant follicle Rt ovary D1 23 mm Rt ovary D2 30 mm Rt ovary D3 37 mm Rt ovary Vol 13.0 cm Left Ovary Lt ovary: Visualized Lt ovary morphology: premenopausal normal follicular Lt ovary D1 31 mm Lt ovary D2 22 mm Lt ovary D3 14 mm Lt ovary Vol 4.8 cm Cul de Sac Visualized. no free fluid visualized Performed By: Cheryl Traylor RDMS Read By: Kristi Lassiter M.D. MATERNAL MEDICINE [facility] US Pelvison 01-03-2024 Radiology Study observation (narrative) [facility] CBC panel Auto (Bld)on 01-01 Erythrocyte distribution width (RBC) [Ratio] 14.2 % 11.5 - 15.0 % [facility] Hematocrit (Bld) [Volume fraction] 37.5 % 36.0 - 46.0 % [facility] Hemoglobin (Bld) [Mass/Vol] 12.0 g/dL 11.5 - 15.5 g/dL [facility] Interpretation and review of laboratory results Abnormal [facility] MCH (RBC) [Entitic mass] 23.9 pg Low 26.0 - 34.0 pg [facility] MCHC (RBC) [Mass/Vol] 32.0 g/dL 30.5 - 36.0 g/dL [facility] MCV (RBC) [Entitic vol] 74.7 fL Low 80.0 - 100.0 fL [facility] Nucleated RBC (Bld) [#/Vol] NINF [facility] Platelet mean volume (Bld) [Entitic vol] 9.9 fL 9.0 - 12.7 fL [facility] Platelets (Bld) [#/Vol] 450 10*3/uL High [facility] RBC (Bld) [#/Vol] 5.02 10*6/uL 3.90 - 5.2 0 m/uL [facility] WBC (Bld) [#/Vol] 9.28 10*3/uL [facility] Discharge Instructionon Discharge Instruction [facility] Medical Records Department [address] [place] [address] Instructions for Home/Discharge Instructions 12/20/23 1431 MR#: [id number] Acct: [id number] Name: SHERIN SANDOVAL Rep #: [id number] : 1995 28 From: Jolene Berry MD PCP: Javier Riojas 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-C Status[place] Discharge Instructions Diet Discharge Diet: No restrictions Activity May shower in (days): 1 May resume sexual activity in: 2 weeks Lifting Restrictions: none Dressing / Incision Call your doctor if your incision/area has: Sudden Increased Bleeding and Foul Smelling Discharge Call your doctor if you observe: Fever of 101 or Higher and Using more than 1 pad per hour (for 2 hrs in a row) Follow Up Care Please Follow Up With: Jolene Berry MD When: In 6-8 weeks or as needed. Call [phone] or send a [employer] message to make an appointment or with any concerns. Test Results: Test results from this visit will be discussed in further detail at your follow-up appointment, if applicable. Discharge Plan Admission Primary Reason for Your Visit: Hysteroscopy D C with polyp resection and Liletta IUD insertion Attending Provider: Jolene Berry Primary Care Provider: Javier Riojas Instructions Print Language: Mozambican Discharge Orders/Prescriptions Prescriptions: No Action ferrous sulfate [iron] 325 MG tablet 325 mg PO QODAY levothyroxine 50 mcg tablet 50 mcg PO DAILY megestrol 20 mg tablet 20 mg PO BID hydroxyzine HCl 10 mg tablet 10 mg PO BID PRN PRN (Reason: panic attack(s)) fluoxetine 20 mg capsule 20 mg PO DAILY buspirone 15 mg tablet 15 mg PO TID Referrals / Follow Up: Javier Riojas NP-C [Primary Care Provider] - Disposition Disposition (needs filled in before D/C Order can be placed): Home, Self Care 12/20/23 1509 Jolene Berry MD CC: 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-C Javier Riojas Signed [facility] MR/POSTOP.ANE 12-20-2023 MR/POSTOP.[facility] Medical Records Department [address] [place] [address] Anesthesia Postop Eval I 12/20/23 1515 MR#: [id number] Acct: [id number] Name: SHERIN SANDOVAL Rep #: [id number] : 1995 28 From: Bob Aldridge PCP: GLENN Persaud Status:[facility] Y Race: C Location: [place] [address] Anesthesia: Postop Eval I Current Vital Signs Temperature: 97.1 F Pulse Rate: 94 Blood Pressure: 148/89 Respiratory Rate: 16 Pulse Ox: 100 Oxygen Delivery Method: Room Air Assessment Airway patent: Yes Spontaneous unlabored respirations: Yes Mental status: Awake and Calm nausea: No Vomiting: No Anesthesia Complication: No Fluid Hydration Crystalloid volume administer (ml): 500 Total IV fluid infused: 500 Progress Note Anesthesia document: Postop Eval 1 completed: Yes 12/20/23 1516 Date Bob Larson Signature: Date CC: Signed [facility] MR/[id number] 12-20-2023 MR/POSTOPAN2 [facility] Medical Records Department [address] [place] [address] Anesthesia Postop Eval II 12/20/23 1516 MR#: [id number] Acct: [id number] Name: SHERIN SANDOVAL Rep #: [id number] : 1995 28 From: Bob Aldridge PCP: Javier Riojas, 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-C Status:REG [facility] Y Race: C Location: [place] [address] Anesthesia Postop Eval I Sum Postop Eval Completion status Anesthesia document: Postop Eval 1 completed: Yes Anesthesia Postop Eval I Summary Anesthesia Postop Eval I Summary: Anesthesia Postop Eval I: Assessment Summary Airway patent Yes 12/20/23 15:16 RODENT EXTERMINATOR.MDOT Spontaneous unlabored Yes 12/20/23 15:16 RODENT EXTERMINATOR.MDOT respirations Mental status Awake,Calm 12/20/23 15:16 RODENT EXTERMINATOR.MDOT nausea No 12/20/23 15:16 RODENT EXTERMINATOR.MDOT Vomiting No 12/20/23 15:16 RODENT EXTERMINATOR.MDOT Anesthesia Postop Eval I: Fluid Summary Crystalloid volume administer 500 12/20/23 15:16 RODENT EXTERMINATOR.MDOT (ml) Colloids volume administered ( ml) Blood Product volume administered (ml) Total IV fluid infused 500 12/20/23 15:16 RODENT EXTERMINATOR.MDOT Anesthesia Postop Eval I: Summary Notes Anesthesia Complication No 12/20/23 15:16 RODENT EXTERMINATOR.MDOT Anesthesia Complication Comment: Post-operative progress note Anesthesia: Postop Eval II Evaluation Mental status: Awake and Calm Pain Level: 0 nausea: No Vomiting: No Complications Anesthesia Complication: No 12/20/23 1516 Date Bob Larson Signature: Date CC: Signed Normal [facility] Operative Reporton Operative Report [facility] Medical Records Department [address] [place] [address] Operative Report 12/20/23 1449 MR#: [id number] Acct: [id number] Name: SHERIN SANDOVAL Rep #: [id number] : 1995 28 From: Jolene Berry MD PCP: GLENN Persaud Status:[facility] [place] Location: [place] [address] Problems Associated Problem List Diagnoses (1) Iron deficiency: (2) Endometrial polyp: (3) Menorrhagia: Report of Operation Date of Procedure: 12/20/23 Pre-Operative Diagnosis: Menorrhagia, endometrial polyp, fe def. anemia from chronic blood loss Post-Operative Diagnosis: same +IUD insertion Surgery/Procedure Performed:: Hysteroscopy D C with polyp resection Description of Surgical Findings:: normal cervix and vagina, normal endometrium w/ small polypoid appearing lesion on left lateral wall Surgeon: Jolene Berry shower enclosure installer: None Type of Anesthesia: MAC/Supplemental/Local Anesthesiologist: Lary Mi Special Medications: none Specimen's removed: Endometrial curettings and polyp Drains: none Estimated Blood Loss (mL): 10 Fluids Replaced: 500 Description of Procedure: The patient was taken to the OR where she was prepped and draped in dorsal lithotomy position. The weighted speculum was placed in the vagina and the anterior lip of the cervix was grasped with a single-tooth tenaculum. A paracervical block was administered with with 1% lidocaine with epinephrine. The cervix was dilated serially with Hegar dilators. The Symphion hysteroscope was placed into the uterine cavity and the above findings were noted. Bilateral tubal ostia [were] identified. The resection device was inserted and a visual D C was done and the polypoid appearing lesion on the left lateral uterine wall was removed in entirety. The Liletta IUD was readied and the uterus sounded to 9 cm. The Liletta device was inserted in the usual sterile fashion and strings cut to 2 cm. The instruments were removed from the vagina. The specimen was handed off and sent to pathology. All sponge and needle counts were correct. Vaginal sweep was performed by me. The patient was awakened and taken to the recovery room in stable condition. Calculated hysteroscopic fluid deficit was 600 cc of normal saline Grafts/Implants Used: Liletta IUD Procedure Start Time: 14:56 Procedure Stop Time: 15:01 Complications none Admit VTE Documentation VTE Present on Admission: No VTE Mechan Device Prophylaxis: SCD's VTE Pharm Prophylaxis ordered?: No Reason prophylaxis not ordered:: Procedure Not Indicated 12/20/23 5580 Cosigner Signature (if applicable): CC: 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Catalina Riojas; Dr. Jolene Berry MD Signed Normal [facility] ,Urineon 12-20-2023 Beta HCG ( test) Ql (U) Negative Normal [facility] Comment on above: Result Comment: Very dilute urine specimens, as indicated by a low specific gravity, may not contain aircraft sales representative levels of hCG. If is still suspected, a first morning urine specimen should be collected 48 hours later and tested. Performed By: #### L 400.7600 ####[facility] [id number] [place], [address] Surgery Specimen Level Piper 12-20-2023 Surgery Specimen Level IV Patient Age/Sex Location Account Attending Physician SHERIN SANDOVAL 28/ [facility] [id number]. Jolene Berry MD Specimen: [id number] Received: 12/20/23 Status: ESAU Rick Num: [id number] Spec Type: KIRIT BX/C Tony Dr: Dr. Jolene Berry MD HEADER OPERATION: Hysteroscopy, D C, possible polyp resection PRE-OP DIAGNOSIS: Abnormal uterine bleeding, desires contraception TISSUE SUBMITTED: Endometrial curettings and polyp MICROSCOPIC DIAGNOSIS Endometrial and polyp curettings: Dyssynchronous endometrium. Fragments of benign myometrium. See comment. / 12/24/2023 COMMENT The specimen contains disordered proliferative glands in background of secretory endometrium. Case has been reviewed in consultation with Dr. Daniels who concurs with the above diagnosis. IDC:[id number] MICROSCOPIC DESCRIPTION Slides are reviewed. GROSS DESCRIPTION Received in fixative is one container labeled with the patient's name and designated Endometrial curettings and polyp. The specimen consists of multiple irregular fragments of davalos soft tissue that in aggregate measure 3.0 x 2.5 x 0.3 cm. The specimen is totally submitted in one cassette. 12/23/2023 TC:5 CPT:91696 Patient Age/Sex Location Account Attending Physician SHERIN SANDOVAL [facility] [id number]. Jolene Berry MD Signed (signature on file) Dr. Honorio Ely DO 12/24/23 1201 Normal [facility] Comment on above: Performed By: #### P SUIV #### [facility] [address] [place] [address]. [place], [address] CBC panel Auto (Bld)on 12-10 Erythrocyte distribution width (RBC) [Ratio] 14.1 % 11.5 - 15.0 % [facility] Hematocrit (Bld) [Volume fraction] 36.4 % 36.0 - 46.0 % [facility] Hemoglobin (Bld) [Mass/Vol] 11.9 g/dL 11.5 - 15.5 g/dL [facility] Interpretation and review of laboratory results Abnormal [facility] MCH (RBC) [Entitic mass] 24.8 pg Low 26.0 - 34.0 pg [facility] MCHC (RBC) [Mass/Vol] 32.7 g/dL 30.5 - 36.0 g/dL [facility] MCV (RBC) [Entitic vol] 76.0 fL Low 80.0 - 100.0 fL [facility] Nucleated RBC (Bld) [#/Vol] NINF [facility] Platelet mean volume (Bld) [Entitic vol] 9.9 fL 9.0 - 12.7 fL [facility] Platelets (Bld) [#/Vol] 430 10*3/uL High [facility] RBC (Bld) [#/Vol] 4.79 10*6/uL 3.90 - 5.2 0 m/uL [facility] WBC (Bld) [#/Vol] 9.49 10*3/uL [facility] Basic Metabolic Profile (BMP )on 11-30-2023 BUN/CRE 14.4 RATIO Normal 03-01 [facility] Comment on above: Performed By: #### B TS, L300.3900, L300.4310, L100.0100, L500.2500 #### [facility] [address] [place], [address] CA,Total 8.7 mg/dL Normal 8.5-10.1 [facility] Comment on above: Performed By: #### B TS, L300.3900, L300.4310, L100.0100, L500.2500 #### [facility] [address] [place], [address] Chloride [Moles/Vol] 108 mmol/L High 98-107 [facility] Comment on above: Performed By: #### B TS, L300.3900, L300.4310, L100.0100, L500.2500 #### [facility] [address] [place], [address] CO2 [Moles/Vol] 23.0 mmol/L Normal 21.0-32.0 [facility] Comment on above: Performed By: #### B TS, L300.3900, L300.4310, L100.0100, L500.2500 #### [facility] [address] [place], [address] Creatinine [Mass/Vol] 0.90 mg/dL Normal 0.55-1.02 [facility] Comment on above: Result Comment: The validity of the calculated GFR GFRAA in patients over 70 years has not been determined. Clinical correlation is essential. Performed By: #### B TS, L300.3900, L300.4310, L100.0100, L500.2500 #### [facility] [address] [place], [address] ECRCL 125.83 ml/min Normal [facility] Comment on above: Performed By: #### B TS, L300.3900, L300.4310, L100.0100, L500.2500 #### [facility] [address] [place], [address] EST GFR - AA 95 mL/min Normal >60 [facility] Comment on above: Result Comment: Afri can Lithuanian GFR Calc Performed By: #### B TS, L300.3900, L300.4310, L100.0100, L500.2500 #### [facility] [address] [place], [address] GAP 8 Normal 5-15 [facility] Comment on above: Performed By: #### B TS, L300.3900, L300.4310, L100.0100, L500.2500 #### [facility] [address] [place], [address] GFR/1.73 sq M.predicted among non-blacks MDRD (S/P/Bld) [Vol rate/Area] 78 mL/min/{1.73_m2} Normal >60 [facility] Comment on above: Result Comment: Non- GFR Calc Performed By: #### B TS, L300.3900, L300.4310, L100.0100, L500.2500 #### [facility] [address] [place], [address] Glucose [Mass/Vol] 93 mg/dL Normal 74-106 [facility] Comment on above: Performed By: #### B TS, L300.3900, L300.4310, L100.0100, L500.2500 #### [facility] [address] [place], [address] Potassium [Moles/Vol] 3.5 mmol/L Normal 3.5-5.1 [facility] Comment on above: Performed By: #### B TS, L300.3900, L300.4310, L100.0100, L500.2500 #### [facility] [address] [place], [address] Sodium [Moles/Vol] 139 mmol/L Normal 136-145 [facility] Comment on above: Performed By: #### B TS, L300.3900, L300.4310, L100.0100, L500.2500 #### [facility] [address] [place], [address] Urea nitrogen [Mass/Vol] 13 mg/dL Normal 7-18 [facility] Comment on above: Performed By: #### B TS, L300.3900, L300.4310, L100.0100, L500.2500 #### [facility] [address] [place], [address] CBC W/Diff, Automatedon 07-2 0-2023 Absolute Lymph 1.80 X10 3/uL Normal 0.83-4.51 [facility] Comment on above: Performed By: #### B TS, L300.3900, L300.4310, L100.0100, L500.2500 #### [facility] [address] [place], [address] Absolute Neut 4.6 X10 3/uL Normal 2.0-7.7 [facility] Comment on above: Performed By: #### B TS, L300.3900, L300.4310, L100.0100, L500.2500 #### [facility] [address] [place], [address] Basophils/100 WBC (Bld) 0.9 % Normal 0-1 [facility] Comment on above: Performed By: #### B TS, L300.3900, L300.4310, L100.0100, L500.2500 #### [facility] [address] [place], [address] Eosinophils/100 WBC (Bld) 1.3 % Normal 0-5 [facility] Comment on above: Performed By: #### B TS, L300.3900, L300.4310, L100.0100, L500.2500 #### [facility] [address] [place], [address] Erythrocyte distribution width (RBC) [Ratio] 14.3 % Normal 11.6-14.6 [facility] Comment on above: Performed By: #### B TS, L300.3900, L300.4310, L100.0100, L500.2500 #### [facility] [address] [place], [address] Hematocrit (Bld) [Volume fraction] 39.7 % Normal 37-47 [facility] Comment on above: Performed By: #### B TS, L300.3900, L300.4310, L100.0100, L500.2500 #### [facility] [address] [place], [address] Hemoglobin (Bld) [Mass/Vol] 12.5 g/dL Normal 12.0-15.0 [facility] Comment on above: Performed By: #### B TS, L300.3900, L300.4310, L100.0100, L500.2500 #### [facility] [address] [place], [address] IG% 0.300 Normal 0.0-0.9 [facility] Comment on above: Result Comment: IG% - Immature Granulocytes (promyelocytes, myelocytes and metamyelocytes) > 1% indicates that a LEFT SHIFT is Present. Performed By: #### B TS, L300.3900, L300.4310, L100.0100, L500.2500 #### [facility] [address] [place], [address] Lymphocytes/100 WBC (Bld) 25.7 % Normal 19-41 [facility] Comment on above: Performed By: #### B TS, L300.3900, L300.4310, L100.0100, L500.2500 #### [facility] [address] [place], [address] MCH (RBC) [Entitic mass] 24.3 pg Low 27.0-32.0 [facility] Comment on above: Performed By: #### B TS, L300.3900, L300.4310, L100.0100, L500.2500 #### [facility] [address] [place], [address] MCHC (RBC) [Mass/Vol] 31.5 g/dL Low 32-36 [facility] Comment on above: Performed By: #### B TS, L300.3900, L300.4310, L100.0100, L500.2500 #### [facility] [address] [place], [address] MCV (RBC) [Entitic vol] 77.2 fL Low 81-99 [facility] Comment on above: Performed By: #### B TS, L300.3900, L300.4310, L100.0100, L500.2500 #### [facility] [address] [place], [address] Monocytes/100 WBC (Bld) 7.0 % Normal 0-10 [facility] Comment on above: Performed By: #### B TS, L300.3900, L300.4310, L100.0100, L500.2500 #### [facility] [address] [place], [address] Neutrophils/100 WBC (Bld) 64.8 % Normal 47-70 [facility] Comment on above: Performed By: #### B TS, L300.3900, L300.4310, L100.0100, L500.2500 #### [facility] [address] [place], [address] Nucleated RBC (Bld) [#/Vol] 0 10*3/uL Normal 0-5 [facility] Comment on above: Performed By: #### B TS, L300.3900, L300.4310, L100.0100, L500.2500 #### [facility] [address] [place], [address] Platelet mean volume (Bld) [Entitic vol] 10.2 fL Normal 6.2-12.0 [facility] Comment on above: Performed By: #### B TS, L300.3900, L300.4310, L100.0100, L500.2500 #### [facility] [address] [place], [address] Platelets (Bld) [#/Vol] 387 10*3/uL Normal 150-450 [facility] Comment on above: Performed By: #### B TS, L300.3900, L300.4310, L100.0100, L500.2500 #### [facility] [address] [place], [address] RBC (Bld) [#/Vol] 5.14 10*6/uL Normal 4.2-5.4 [facility] Comment on above: Performed By: #### B TS, L300.3900, L300.4310, L100.0100, L500.2500 #### [facility] [address] [place], [address] RDW SD 39.6 fl Normal 35.1-43.9 [facility] Comment on above: Performed By: #### B TS, L300.3900, L300.4310, L100.0100, L500.2500 #### [facility] [address] [place], [address] WBC (Bld) [#/Vol] 7.0 10*3/uL Normal 4.4-11.0 [facility] Comment on above: Performed By: #### B TS, L300.3900, L300.4310, L100.0100, L500.2500 #### [facility] [address] [place], [address] Emergency Department Summary on 11-30-2023 Emergency Department Summary [facility] Medical Records Department [address] [place] [address] Emergency Department Summary 11/30/23 MR#: [id number] Acct: [id number] Name: SHERIN SANDOVAL Rep #: [id number] : 1995 28 From: Joceyln Yang MD PCP: GLENN Persaud Status:DEP ER Location: ED HPI HPI - Female History of Present Illness Chief Complaint: Vag Bleeding Informant: patient Narrative Narrative: Patient presents secondary to heavy vaginal bleeding. She is a history of heavy periods, but states she underwent a uterine biopsy 2 days ago at the [facility] here in [facility]. Since that time she has had heavier bleeding with some cramping that seems to be worse to the left. Patient states that she is using 2 overnight pads at a time. She will soak these and bleed through them in about 1 hour time. She is not having significant clots. [facility] Medical History (Updated 11/30/23 @ 13:[address] Jocelyn Yang MD) Menorrhagia Home Medications ???Medication ???Instructions ???Recorded ???Last Taken ???Type ferrous sulfate 325 mg (65 mg 325 mg PO DAILY 09/03/18 Unknown History iron) tablet (iron) acetaminophen 160 mg/5 mL (5 mL) 500 mg (15.625 mL) PO Q4H PRN PRN 09/05/18 Unknown Rx oral suspension Mild-Mod Pain (1-510) ibuprofen 100 mg/5 mL oral 500 mg (25 mL) PO Q6H PRN PRN 09/05/18 Unknown Rx suspension (Children's Ibuprofen) Mod-Severe Pain (4-10) Allergy/AdvReac Type Severity Reaction Status Date / Time No Known Allergies Allergy Verified 11/30/23 11:38 Social History Smoking Status: Never smoker ROS ROS ED Constitutional Constitutional ED: Denies chills or fever(s) Eyes Eyes: Denies discharge from eye(s) ENT ENT ED: Denies discharge from eye(s), rhinorrhea or sore throat Cardiovascular Cardiovascular: Denies chest pain Respiratory/Chest Respiratory/Chest: Denies cough or dyspnea Gastrointestinal Gastrointestinal: Reports abdominal pain; Denies nausea or vomiting Genitourinary Genitourinary ED: Denies dysuria Musculoskeletal Musculoskeletal: Denies back pain or extremity pain Integumentary Denies Abrasions or rash Neurologic Neurologic: Denies headache(s) or weakness Psychiatric Psychiatric: Denies anxiety or depression Allergic/Immunologic Allergic/Immunologic ED: Denies lip swelling or urticaria EXAM Physical Exam Const Vital Signs: 11/30/23 11:37 11/30/23 11:37 11/30/23 12:00 Temperature 99 F Temperature Source Temporal Pulse Rate 125 H 126 H 106 H Respiratory Rate 18 18 Blood Pressure 165/100 H 160/112 H 133/95 H Blood Pressure Mean 121 128 107 Pulse Ox 98 98 Oxygen Delivery Method Room Air Room Air Positive well nourished and well developed General Appearance ED: well developed HEENT Reports moist mucous membranes Eyes EOMs intact bilaterally Chest Wall inspection of chest normal and palpation of chest normal Resp normal respiratory effort and clear to auscultation bilaterally Cardio Rate: tachycardic GI GI Narrative: Abdomen soft with mild tenderness outpatient in the lower abdomen, both the suprapubic and left lower quadrant. No guarding or rebound. Active bowel sounds are noted. 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 Repeat vital signs include a blood pressure of 133/95 with a heart rate of 102. Patient be given IV fluids. Labwork obtained to evaluate for leukocytosis, anemia, and electrolyte derangement. History Record Review Discussion w/independent historian: Patient Additional record(s) reviewed:: Prior outpatient record and Prior labs Lab Data Attestation: I reviewed the patient's lab results. Labs: Laboratory Results - last 24 hr 11/30/23 12:10 WBC 7.0 RBC 5.14 Hgb 12.5 Hct 39.7 MCV 77.2 L MCH 24.3 L MCHC 31.5 L RDW Std Deviation 39.6 RDW Coeff of Jonatan 14.3 Plt Count 387 MPV 10.2 Immature Gran % (Auto) 0.300 Neut % (Auto) 64.8 Lymph % (Auto) 25.7 Free[place] % (Auto) 7.0 Eos % (Auto) 1.3 Baso % (Auto) 0.9 Absolute Neuts (auto) 4.6 Absolute Lymphs (auto) 1.80 Nucleated RBC % 0 PT 15.5 H INR 1.2 APTT 28.6 Sodium 139 Potassium 3.5 Chloride 108 H Carbon Dioxide 23.0 Anion Gap 8 BUN 13 Creatinine 0.90 Estim Creat Clear Calc 125.83 Est GFR (MDRD) Af Amer 95 Est GFR (MDRD) Non-Af 78 BUN/Creatinine Ratio 14.4 Glucose 93 Calcium 8.7 Blood Type O NEGATIVE Antibody Screen NEGATIVE Treatment and Re-Estela (more content not included)... Normal [facility] Partial Thromboplast Timeon 11-30-2023 aPTT Coag (Bld) [Time] 28.6 s Normal 24.1-36.2 [facility] Comment on above: Performed By: #### B TS, L300.3900, L300.4310, L100.0100, L500.2500 ####[facility] [id number] [place], [place], [id number] Prothrombin Time w/INRon INR Coag (PPP) [Relative time] 1.2 {INR} Normal [facility] Comment on above: Performed By: #### B TS, L300.3900, L300.4310, L100.0100, L500.2500 ####[facility] [address] [place], [address] PT Coag (PPP) [Time] 15.5 s High 11.7-14.9 [facility] Comment on above: Performed By: #### B TS, L300.3900, L300.4310, L100.0100, L500.2500 ####[facility] [address] [place], [address] Type AND Screenon 11-30-2023 Ab SCREEN GEL Negative Normal [facility] Comment on above: Order Comment: HVAG Performed By: #### B TS, L300.3900, L300.4310, L100.0100, L500.2500 #### [facility] [address] [place], [place], [address] CBC panel Auto (Bld)on 11-27 Erythrocyte distribution width (RBC) [Ratio] 14.6 % 11.5 - 15.0 % [facility] Hematocrit (Bld) [Volume fraction] 39.3 % 36.0 - 46.0 % [facility] Hemoglobin (Bld) [Mass/Vol] 12.6 g/dL 11.5 - 15.5 g/dL [facility] Interpretation and review of laboratory results Abnormal [facility] MCH (RBC) [Entitic mass] 24.4 pg Low 26.0 - 34.0 pg [facility] MCHC (RBC) [Mass/Vol] 32.1 g/dL 30.5 - 36.0 g/dL [facility] MCV (RBC) [Entitic vol] 76.2 fL Low 80.0 - 100.0 fL [facility] Nucleated RBC (Bld) [#/Vol] NINF [facility] Platelet mean volume (Bld) [Entitic vol] 10.0 fL 9.0 - 12.7 fL [facility] Platelets (Bld) [#/Vol] 479 10*3/uL High [facility] RBC (Bld) [#/Vol] 5.16 10*6/uL 3.90 - 5.2 0 m/uL [facility] WBC (Bld) [#/Vol] 10.69 10*3/uL [facility] UA DIP,URINE HCG (POC)on Beta HCG ( test) Ql (U) Negative Negative [facility] Comment on above: Location:[facility], [address], [place], [address] Retirement Administrator (POCT) Internal QC [facility] Location:[facility], [address], [place], [address] [facility] POINT OF CARE [facility] CBC panel Auto (Bld)on 11-19 Erythrocyte distribution width (RBC) [Ratio] 14.3 % 11.5 - 15.0 % [facility] Hematocrit (Bld) [Volume fraction] 39.8 % 36.0 - 46.0 % [facility] Hemoglobin (Bld) [Mass/Vol] 12.5 g/dL 11.5 - 15.5 g/dL [facility] Interpretation and review of laboratory results Abnormal [facility] MCH (RBC) [Entitic mass] 24.9 pg Low 26.0 - 34.0 pg [facility] MCHC (RBC) [Mass/Vol] 31.4 g/dL 30.5 - 36.0 g/dL [facility] MCV (RBC) [Entitic vol] 79.1 fL Low 80.0 - 100.0 fL [facility] Nucleated RBC (Bld) [#/Vol] NINF [facility] Platelet mean volume (Bld) [Entitic vol] 10.1 fL 9.0 - 12.7 fL [facility] Platelets (Bld) [#/Vol] 482 10*3/uL High [facility] RBC (Bld) [#/Vol] 5.03 10*6/uL 3.90 - 5.2 0 m/uL [facility] WBC (Bld) [#/Vol] 9.25 10*3/uL [facility] CBC panel Auto (Bld)on 11-03 Erythrocyte distribution width (RBC) [Ratio] 13.3 % 11.5 - 15.0 % [facility] Hematocrit (Bld) [Volume fraction] 38.3 % 36.0 - 46.0 % [facility] Hemoglobin (Bld) [Mass/Vol] 12.3 g/dL 11.5 - 15.5 g/dL [facility] Interpretation and review of laboratory results Abnormal [facility] MCH (RBC) [Entitic mass] 24.6 pg Low 26.0 - 34.0 pg [facility] MCHC (RBC) [Mass/Vol] 32.1 g/dL 30.5 - 36.0 g/dL [facility] MCV (RBC) [Entitic vol] 76.8 fL Low 80.0 - 100.0 fL [facility] Nucleated RBC (Bld) [#/Vol] NINF [facility] Platelet mean volume (Bld) [Entitic vol] 9.7 fL 9.0 - 12.7 fL [facility] Platelets (Bld) [#/Vol] 387 10*3/uL [facility] RBC (Bld) [#/Vol] 4.99 10*6/uL 3.90 - 5.2 0 m/uL [facility] WBC (Bld) [#/Vol] 8.54 10*3/uL [facility] Comprehensive metabolic 2000 panelOrdered By: Paige Culp on 11-04-2023 Albumin [Mass/Vol] 4.3 g/dL 3.9 - 4.9 g/dL [facility] ALP [Catalytic activity/Vol] 91 U/L 34 - 123 U/L [facility] ALT [Catalytic activity/Vol] 16 U/L 7 - 38 U/L [facility] Anion gap [Moles/Vol] 11 mmol/L 8 - 15 mmol/L [facility] AST [Catalytic activity/Vol] 14 U/L 13 - 35 U/L [facility] Bilirubin [Mass/Vol] 0.2 mg/dL 0.2 - 1 .3 mg/dL [facility] [facility] Calcium [Mass/Vol] 9.3 mg/dL 8.5 - 10. 2 mg/dL [facility] Chloride [Moles/Vol] 105 mmol/L 98 - 10 7 mmol/L [facility] CO2 [Moles/Vol] 21 mmol/L Low 22 - 30 mmol/L [facility] Creatinine [Mass/Vol] 0.70 mg/dL 0.58 - 0.96 mg/dL [facility] GFR/1.73 sq M.predicted among non-blacks MDRD (S/P/Bld) [Vol rate/Area] 120 mL/min/{1.73_m2} - PINF [facility] Comment on above: Estimated Glomerular Filtration Rate (eGFR) is calculated using the 2020 CKD-EPI creatinine equation. This equation utilizes serum creatinine, sex, and age as parameters. The creatinine assay has traceable calibration to isotope dilution-mass spectrometry. Refer to KDIGO guidelines for clinical interpretation. In patients with unstable renal function, e.g. those with acute kidney injury, the eGFR may not accurately reflect actual GFR. Glucose [Mass/Vol] 98 mg/dL 74 - 99 mg/dL [facility] Comment on above: The [place] Di[employer] Association (ADA) provides guidance for cutoff values for fasting glucose and random glucose. The ADA defines fasting as no caloric intake for at least 8 hours. Fasting plasma glucose results between 100 to 125 mg/dL indicate increased risk for diabetes (prediabetes). Fasting plasma glucose results greater than or equal to 126 mg/dL meet the criteria for diagnosis of diabetes. In the absence of unequivocal hyperglycemia, results should be confirmed by repeat testing. In a patient with classic symptoms of hyperglycemia or hyperglycemic crisis, random plasma glucose results greater than or equal to 200 mg/dL meet the criteria for diagnosis of diabetes. Reference: Standards of Medical Care in Diabetes 2016, [place] [employer]. Diabetes Care. 2016.39(Suppl 1). Interpretation and review of laboratory results Abnormal [facility] Potassium [Moles/Vol] 4.3 mmol/L 3.7 - 5.1 mmol/L [facility] Protein [Mass/Vol] 7.6 g/dL 6.3 - 8.0 g/dL [facility] Sodium [Moles/Vol] 137 mmol/L 136 - 144 mmol/L [facility] Urea nitrogen [Mass/Vol] 18 mg/dL 7 - 21 mg/dL [facility] ESR Westergren method (Bld) [Velocity]on 09-24-2023 ESR (Bld) [Velocity] 24 mm/h [facility] Interpretation and review of laboratory results Abnormal [facility] CBC W Auto Differential pane l (Bld)on 08-27-2023 Basophils (Bld) [#/Vol] 0.08 10*3/uL <0.11 k/uL [facility] Basophils/100 WBC (Bld) 0.8 % [facility] Differential cell count method Nom (Bld) Auto [facility] Eosinophils (Bld) [#/Vol] 0.22 10*3/uL <0.46 k/uL [facility] Eosinophils/100 WBC (Bld) 2.3 % [facility] Erythrocyte distribution width (RBC) [Ratio] 13.5 % 11.5 - 15.0 % [facility] Hematocrit (Bld) [Volume fraction] 38.9 % 36.0 - 46.0 % [facility] Hemoglobin (Bld) [Mass/Vol] 12.7 g/dL 11.5 - 15.5 g/dL [facility] Immature granulocytes (Bld) [#/Vol] <0.10 k/uL [facility] Immature granulocytes/100 WBC (Bld) 0.2 % [facility] Lymphocytes (Bld) [#/Vol] 2.49 10*3/uL 1.00 - 4.00 k/uL [facility] Lymphocytes/100 WBC (Bld) 26.2 % [facility] MCH (RBC) [Entitic mass] 25.5 pg Low 26.0 - 34.0 pg [facility] MCHC (RBC) [Mass/Vol] 32.6 g/dL 30.5 - 36.0 g/dL [facility] MCV (RBC) [Entitic vol] 78.1 fL Low 80.0 - 100.0 fL [facility] Monocytes (Bld) [#/Vol] 0.64 10*3/uL <0.87 k/uL [facility] Monocytes/100 WBC (Bld) 6.7 % [facility] Neutrophils (Bld) [#/Vol] 6.07 10*3/uL 1.45 - 7.50 k/uL [facility] Neutrophils/100 WBC (Bld) 63.8 % [facility] Nucleated RBC (Bld) [#/Vol] <0.01 k/uL [facility] Nucleated RBC/100 WBC (Bld) [Ratio] 0.0 /100 WBC [facility] Platelet mean volume (Bld) [Entitic vol] 10.2 fL 9.0 - 12.7 fL [facility] Platelets (Bld) [#/Vol] 379 10*3/uL 150 - 400 k/uL [facility] RBC (Bld) [#/Vol] 4.98 10*6/uL 3.90 - 5.2 0 m/uL [facility] WBC (Bld) [#/Vol] 9.52 10*3/uL 3.70 - 11.00 k/uL [facility] Note - Heme Onc-Follo w Up Visiton 04-16-2022 [facility] Note - Heme Onc-Follow Up Visit This report has been cancelled. Normal [facility] CBC AND DIFFERENTIALon 04-10 % AUTOMATED IMMATURE GRAN 0.4 % Normal 0.0 - 0.9 [facility] Comment on above: Result Comment: Mandy ture Granulocyte Count (IG) includes promyelocytes, myelocytes and metamyelocytes but does not include bands. Percent differential counts (%) should be interpreted in the context of the absolute cell counts (cells/L). Performed By: #### V TB12 #### [address] [address] Basophils (Bld) [#/Vol] 0.06 10*3/uL Normal 0.00 - 0.10 [facility] Comment on above: Performed By: #### V TB12 #### [address] [address] Basophils/100 WBC (Bld) 0.8 % Normal 0.0 - 2.0 [facility] Comment on above: Performed By: #### V TB12 #### [address] [address] Eosinophils (Bld) [#/Vol] 0.16 10*3/uL Normal 0.00 - 0.70 [facility] Comment on above: Performed By: #### V TB12 #### [address] [address] Eosinophils/100 WBC (Bld) 2.1 % Normal 0.0 - 6.0 [facility] Comment on above: Performed By: #### V TB12 #### [address] [address] Lymphocytes (Bld) [#/Vol] 2.26 10*3/uL Normal 1.20 - 4.80 [facility] Comment on above: Performed By: #### V TB12 #### [address] [address] Lymphocytes/100 WBC (Bld) 29.2 % Normal 13.0 - 44.0 [facility] Comment on above: Performed By: #### V TB12 #### [address] [address] Monocytes (Bld) [#/Vol] 0.35 10*3/uL Normal 0.10 - 1.00 [facility] Comment on above: Performed By: #### V TB12 #### [address] [address] Monocytes/100 WBC (Bld) 4.5 % Normal 2.0 - 10.0 [facility] Comment on above: Performed By: #### V TB12 #### [address] [address] Neutrophils (Bld) [#/Vol] 4.89 10*3/uL Normal 1.20 - 7.70 [facility] Comment on above: Result Comment: Perc ent differential counts (%) should be interpreted in the context of the absolute cell counts (cells/L). Performed By: #### V TB12 #### [address] [address] Neutrophils/100 WBC (Bld) 63.0 % Normal 40.0 - 80.0 [facility] Comment on above: Performed By: #### V TB12 #### [address] [address] Erythrocyte distribution width (RBC) [Ratio] 21.9 % High 11.5 - 14.5 [facility] Comment on above: Performed By: #### V TB12 #### [address] [address] Hematocrit (Bld) [Volume fraction] 35.8 % Low 36.0 - 46.0 [facility] Comment on above: Performed By: #### V TB12 #### [address] [address] Hemoglobin (Bld) [Mass/Vol] 11.1 g/dL Low 12.0 - 16.0 [facility] Comment on above: Performed By: #### V TB12 #### [address] [address] MCHC (RBC) [Mass/Vol] 31.0 g/dL Low 32.0 - 36.0 [facility] Comment on above: Performed By: #### V TB12 #### [address] [address] MCV (RBC) [Entitic vol] 76 fL Low 80 - 100 [facility] Comment on above: Performed By: #### V TB12 #### [address] [address] Platelets (Bld) [#/Vol] 353 10*3/uL Normal 150 - 450 [facility] Comment on above: Performed By: #### V TB12 #### [address] [address] RBC 4.74 x10E12/L Normal 4.00 - 5.20 [facility] Comment on above: Performed By: #### Jackelyn TB12 #### [address] [address] WBC (Bld) [#/Vol] 7.8 10*3/uL Normal 4.4 - 11.3 [facility] Comment on above: Performed By: #### V TB12 #### [address] [address] COMPREHENSIVE PANELon 2021 Albumin [Mass/Vol] 3.9 g/dL Normal 3.4 - 5.0 [facility] Comment on above: Performed By: #### T SH2 #### [address] [address] ALP [Catalytic activity/Vol] 77 U/L Normal 33 - 110 [facility] Comment on above: Performed By: #### T SH2 #### [address] [address] ALT [Catalytic activity/Vol] 9 U/L Normal 7 - 45 [facility] Comment on above: Result Comment: Mackenzie ents treated with Sulfasalazine may generate falsely decreased results for ALT. Performed By: #### T SH2 #### [address] [address] Anion gap [Moles/Vol] 10 mmol/L Normal 10 - 20 [facility] Comment on above: Performed By: #### T SH2 #### [address] [address] AST [Catalytic activity/Vol] 9 U/L Normal 9 - 39 [facility] Comment on above: Performed By: #### T SH2 #### [address] [address] Bilirubin [Mass/Vol] 0.2 mg/dL Normal 0.0 - 1.2 [facility] Comment on above: Performed By: #### T SH2 #### [address] [address] Calcium [Mass/Vol] 8.7 mg/dL Normal 8.6 - 10.3 [facility] Comment on above: Performed By: #### T SH2 #### [address] [address] Chloride [Moles/Vol] 106 mmol/L Normal 98 - 107 [facility] Comment on above: Performed By: #### T SH2 #### [address] [address] Creatinine [Mass/Vol] 0.55 mg/dL Normal 0.50 - 1.05 [facility] Comment on above: Performed By: #### T SH2 #### [address] [address] eGFR FEMALE >90 Normal >90 [facility] Comment on above: Result Comment: CALC ULATIONS OF ESTIMATED GFR ARE PERFORMED USING THE 2020 CKD-EPI STUDY REFIT EQUATION WITHOUT THE RACE VARIABLE FOR THE IDMS-TRACEABLE CREATININE METHODS. https://jasn.asnjournals.org/content/early//ASN.569507 8983 Performed By: #### T SH2 #### [address] [address] Glucose [Mass/Vol] 87 mg/dL Normal 74 - 99 [facility] Comment on above: Performed By: #### T SH2 #### [address] [address] HCO3 (Bld) [Moles/Vol] 25 mmol/L Normal 21 - 32 [facility] Comment on above: Performed By: #### T SH2 #### [address] [address] Potassium [Moles/Vol] 4.3 mmol/L Normal 3.5 - 5.3 [facility] Comment on above: Performed By: #### T SH2 #### [address] [address] Protein [Mass/Vol] 7.0 g/dL Normal 6.4 - 8.2 [facility] Comment on above: Performed By: #### T SH2 #### [address] [address] Sodium [Moles/Vol] 137 mmol/L Normal 136 - 145 [facility] Comment on above: Performed By: #### T SH2 #### [address] [address] Urea nitrogen [Mass/Vol] 14 mg/dL Normal 6 - 23 [facility] Comment on above: Performed By: #### T SH2 #### [address] [address] Complete Blood Count + Diffe rentialon 04-10-2022 Basophils/100 WBC (Bld) 0.8 % 0.0 - 2.0 [facility] Work Phone: [phone] Erythrocyte distribution width (RBC) [Ratio] 21.9 % above high threshold See Below [facility] Work Phone: [phone] Comment on above: Reference Range: 11. 5 - 14.5 Hematocrit (Bld) [Volume fraction] 35.8 % below low threshold See Below [facility] Work Phone: [phone] Comment on above: Reference Range: 36. 0 - 46.0 Hemoglobin (Bld) [Mass/Vol] 11.1 g/dL below low threshold See Below [facility] Work Phone: Comment on above: Reference Range: 12. 0 - 16.0 Lymphocytes/100 WBC (Bld) 29.2 % See Below [facility] Work Phone: [phone] Comment on above: Reference Range: 13. 0 - 44.0 MCHC (RBC) [Mass/Vol] 31.0 g/dL below low threshold See Below [facility] Work Phone: [phone] Comment on above: Reference Range: 32. 0 - 36.0 MCV (RBC) [Entitic vol] 76 fL below low threshold 80 - 100 [facility] Work Phone: [phone] Monocytes/100 WBC (Bld) 4.5 % 2.0 - 10.0 [facility] Work Phone: [phone] Neutrophils/100 WBC (Bld) 63.0 % See Below [facility] Work Phone: [phone] Comment on above: Reference Range: 40. 0 - 80.0 Platelets (Bld) [#/Vol] 353 10*3/uL 150 - 450 [facility] Work Phone: [phone] RBC (Bld) [#/Vol] 4.74 {x10E12/L} See Below [facility] Work Phone: [phone] Comment on above: Reference Range: 4.0 0 - 5.20 WBC (Bld) [#/Vol] 7.8 10*3/uL 4.4 - 11.3 [facility] Work Phone: [phone] Complete Blood Count + Differential 0.06 {x10E9/L} See Below [facility] Work Phone: [phone] Comment on above: Reference Range: 0.0 0 - 0.10 Complete Blood Count + Differential 0.16 {x10E9/L} See Below [facility] Work Phone: [phone] Comment on above: Reference Range: 0.0 0 - 0.70 Complete Blood Count + Differential 0.35 {x10E9/L} See Below [facility] Work Phone: [phone] Comment on above: Reference Range: 0.1 0 - 1.00 Complete Blood Count + Differential 2.26 {x10E9/L} See Below [facility] Work Phone: Comment on above: Reference Range: 1.2 0 - 4.80 Complete Blood Count + Differential 4.89 {x10E9/L} See Below [facility] Work Phone: Comment on above: Reference Range: 1.2 0 - 7.70 Percent differential counts (%) should be interpreted in the context of the absolute cell counts (cells/L). Complete Blood Count + Differential 2.1 % 0.0 - 6.0 [facility] Work Phone: Complete Blood Count + Differential 0.4 % 0.0 - 0.9 [facility] Work Phone: Comment on above: Immature Granulocyte Count (IG) includes promyelocytes, myelocytes and metamyelocytes but does not include bands. Percent differential counts (%) should be interpreted in the context of the absolute cell counts (cells/L). FERRITINon 04-10-2022 FERRITIN 31 ug/L Normal 8 - 150 [facility] Comment on above: Performed By: #### T SH2 #### [place] [id number] FOLATE, SERUMon 04-10-2022 Folate [Mass/Vol] 7.5 ng/mL Normal >5.0 [facility] Comment on above: Result Comment: Low <3.4 Borderline 3.4-5.0 Normal >5.0 . Patients receiving more than 5 mg/day of biotin may have interference in test results. A sample should be taken no sooner than eight hours after previous dose. Contact the testing laboratory for additional information. Performed By: #### T SH2 #### [address] [address] FOLATE, SERUM Canceled Normal [facility] Comment on above: Order Comment: TEST FOLATE, SERUM WAS CANCELLED, 04/10/2022 09:50 duplicate orders. Result Comment: Low <3.4 Borderline 3.4-5.0 Normal >5.0 . Patients receiving more than 5 mg/day of biotin may have interference in test results. A sample should be taken no sooner than eight hours after previous dose. Contact the testing laboratory for additional information. Performed By: #### T SH2 #### [address] [address] Ferritin, Serumon 04-10-2022 Ferritin [Mass/Vol] 31 ug/L 8 - 150 [facility] Work Phone: Folate, Serumon 04-10-2022 Folate [Mass/Vol] 7.5 ng/mL >5.0 [facility] Work Phone: Comment on above: Low <3.4Borderline 3 .4-5.0Normal >5.0. Patients receiving more than 5 mg/day of biotin may have interference in test results. A sample should be taken no sooner than eight hours after previous dose. Contact the testing laboratory for additional information. Folate [Mass/Vol] Canceled [facility] Work Phone: Comment on above: Low <3.4Borderline 3 .4-5.0Normal >5.0. Patients receiving more than 5 mg/day of biotin may have interference in test results. A sample should be taken no sooner than eight hours after previous dose. Contact the testing laboratory for additional information. IRON + TIBCon 04-10-2022 % SATURATION 8 % Low 25 - 45 [facility] Comment on above: Performed By: #### I BAYRON #### [address] [address] Iron [Mass/Vol] 28 ug/dL Low 35 - 150 [facility] Comment on above: Performed By: #### I RONT #### [address] [address] TIBC 364 ug/dL Normal 240 - 445 [facility] Comment on above: Performed By: #### I ROSMERYT #### [address] [address] Laboratory - Chemistry and C hemistry - challengeon 04-10-2022 Albumin BCP dye [Mass/Vol] 3.9 g/dL 3.4 - 5.0 [facility] Work Phone: ALP [Catalytic activity/Vol] 77 U/L 33 - 110 [facility] Work Phone: ALT With P-5'-P [Catalytic activity/Vol] 9 U/L 7 - 45 [facility] Work Phone: Comment on above: Patients treated wit h Sulfasalazine may generate falsely decreased results for ALT. Anion gap [Moles/Vol] 10 mmol/L 10 - 20 [facility] Work Phone: AST With P-5'-P [Catalytic activity/Vol] 9 U/L 9 - 39 [facility] Work Phone: Bilirubin [Mass/Vol] 0.2 mg/dL 0.0 - 1.2 [facility] Work Phone: Calcium [Mass/Vol] 8.7 mg/dL 8.6 - 10.3 [facility] Work Phone: [phone] Chloride [Moles/Vol] 106 mmol/L 98 - 107 [facility] Work Phone: CO2 [Moles/Vol] 25 mmol/L 21 - 32 [facility] Work Phone: Creatinine [Mass/Vol] 0.55 mg/dL See Below [facility] Work Phone: Comment on above: Reference Range: 0.5 0 - 1.05 Glucose [Mass/Vol] 87 mg/dL 74 - 99 [facility] Work Phone: Iron [Mass/Vol] 28 ug/dL below low threshold 35 - 150 [facility] Work Phone: Iron binding capacity [Mass/Vol] 364 ug/dL 240 - 445 [facility] Work Phone: [phone] Potassium [Moles/Vol] 4.3 mmol/L 3.5 - 5.3 [facility] Work Phone: [phone] Protein [Mass/Vol] 7.0 g/dL 6.4 - 8.2 [facility] Work Phone: Sodium [Moles/Vol] 137 mmol/L 136 - 145 [facility] Work Phone: Urea nitrogen [Mass/Vol] 14 mg/dL 6 - 23 [facility] Work Phone: No Panel Informationon 04-10 >90 >90 [facility] Work Phone: Comment on above: CALCULATIONS OF SHY MATED GFR ARE PERFORMED USING THE 2020 CKD-EPI STUDY REFIT EQUATION WITHOUT THE RACE VARIABLE FOR THE IDMS-TRACEABLE CREATININE METHODS.https://jasn.asnjournals.org/content/early// N.2843684371 8 % below low threshold 25 - 45 [facility] Work Phone: [facility] Follow-up visit Diagnoses/Problems Generalized anxiety disorder (300.02) (F41.1) Panic attacks (300.01) (F41.0) Hypothyroidism (244.9) (E03.9) Iron deficiency anemia (280.9) (D50.9) Orders Generalized anxiety disorder, Hypothyroidism, Iron deficiency anemia, Panic attacks Follow-up visit in 6 months Outpatient Follow-up Status: Complete Done: 10Apr2022 Generalized anxiety disorder, Panic attacks Start: hydrOXYzine HCl - 10 MG Oral Tablet; TAKE 1 TABLET Twice daily PRN breakthrough anxiety Provider Impressions Iron deficiency anemia: Continue to follow with hematology, will likely need re-occurring iron infusions. Hypothyroidism: Continue on current treatment next TSH in 6 months CHARLINE: Continue on current treatment, recommend she establish with a therapist in her new location. panic attacks: Start on hydroxyzine 10 mg twice daily as needed for breakthrough anxiety. Follow up in 6 months Chief Complaint 2 month. History of Present Illness Sherin is a 26 yo female here today for follow up, she has been getting her iron infusions. Established with hematology on 02/12/2022; note reviewed, had Venofer infusion X 5. Lab today shows Hemoglobin at 11.1, reviewed labs with patient. Anxiety is stable, continues to take fluoxetine She is still having breakthrough anxiety attacks. she states she recently moved to [place] and the change has caused her increase in anxiety she is taking her Buspar and Fluoxitine as prescribed and states normally she is doing well. No acute or new health concerns today 'Scores and Scales' CHARLINE-7 [id number] CHARLINE-7 Total Score20 12 Feeling nervous, anxious or on edgeNearly every day - 3 Over half the days - 2 Not being able to stop or control worryingNearly every day - 3 Over half the days - 2 Worrying too much about different thingsNearly every day - 3 Several days - 1 Trouble relaxingNearly every day - 3 Over half the days - 2 Being so restless that it's hard to sit stillNearly every day - 3 Nearly every day - 3 Becoming easily annoyed or irritableOver half the days - 2 Several days - 1 Feeling afraid as if something awful might happenNearly every day - 3 Several days - 1 Review of Systems Constitutional: no chills, no fever and no night sweats. Cardiovascular: no chest pain, no intermittent leg claudication, no lower extremity edema, no palpitations and no syncope. Respiratory: no cough, no shortness of breath during exertion, no shortness of breath at rest and no wheezing. Gastrointestinal: no abdominal pain, no blood in stools, no constipation, no diarrhea, no melena, no nausea, no rectal pain and no vomiting. Genitourinary: no dysuria, no change in urinary frequency, no urinary hesitancy, no feelings of urinary urgency and no vaginal discharge. Integumentary: no new skin lesions and no rashes. Neurological: no difficulty walking, no headache, no limb weakness, no numbness and no tingling. Hematologic/Lymphatic: no tendency for easy bleeding and no tendency for easy bruising. Active Problems Abdominal pain (789.00) (R10.9) Abnormal uterine bleeding (AUB) (626.9) (N93.9) Blood loss anemia (280.0) (D50.0) Chronic anemia (285.9) (D64.9) Contraception management (V25.9) (Z30.9) Depression with anxiety (300.4) (F41.8) Generalized anxiety disorder (300.02) (F41.1) Hypertension (401.9) (I10) Hypothyroidism (244.9) (E03.9) Inability to urinate (788.99) (R33.9) Iron deficiency anemia (280.9) (D50.9) Left flank pain (789.09) (R10.9) Left renal stone (592.0) (N20.0) Lightheadedness (780.4) (R42) Low back pain (724.2) (M54.50) Multinodular goiter (241.1) (E04.2) Nausea in adult (787.02) (R11.0) Negative test (V72.41) (Z32.02) Panic attacks (300.01) (F41.0) Risk for sexually transmitted disease (V69.2) (Z72.51) Seasonal allergies (477.9) (J30.2) Situational hypertension (796.2) (R03.0) Past Medical History History of miscarriage (V13.29) (Z87.59) 2015 History of Menstruation AGE 11 Surgical History History of Ankle surgery 2019 History of Lithotripsy 202 History of Ureteral stent placement History of Lacey tooth extraction 2012 Family History Family history of malignant neoplasm of breast (V16.3) (Z80.3) mom genetics negative Family history of throat cancer (V16.0) (Z80.0) Social History Alcohol use (V49.89) (Z78.9) Does not have living will Never smoker No illicit drug use Sexually active Unemployed (V62.0) (Z56.0) Allergies No Known Drug Allergies Recorded By: Siena Howell; 10/26/2019 3:38:05 PM Current Meds Medication NameInstructionReason Sprintec 28 0.25-35 MG-MCG Oral TabletTAKE 1 TABLET Daily Pt to skip every other placebo week.Abnormal uterine bleeding (AUB), Iron deficiency anemia Ferrous Sulfate 325 (65 Fe) MG Oral TabletTake 1 tablet twice a dayBlood loss anemia busPIRone HCl - 5 MG Oral TabletTake 1 tablet in AM, and take 2 tablets at bedtimeGeneralized anxiety disorder [place] (more content not included)... Normal [facility] Tobacco Screening.on 022 Tobacco use status [facility]PH[facility] b) No [facility] Work Phone: VITAMIN B12on 04-10-2022 Cobalamin (Vitamin B12) [Mass/Vol] 244 pg/mL Normal 211 - 911 [facility] Comment on above: Performed By: #### V TB12 #### [address] [address] VITAMIN B12 Canceled Normal [facility] Comment on above: Order Comment: TEST VITAMIN B12 WAS CANCELLED, 04/10/2022 09:50 duplicate orders. Performed By: #### T SH2 #### [address] [address] Vitamin B12, Serumon 022 Cobalamin (Vitamin B12) [Mass/Vol] 244 pg/mL 211 - 911 [facility] Work Phone: Cobalamin (Vitamin B12) [Mass/Vol] Canceled [facility] Work Phone: Clinic Note - Intakeon 02-27 Clinic Note - Intake Patient Visit Information: Visit TypeFollow Up Visit, iron Source of Informationpatient Admission Information: Admission Since Last VisitNo Vital Signs: Temp (degrees C)36.2 degrees C Temperatureskin Heart Rate (beats/min)89 beats per minute Respiration (breaths/min)16 breath per minute BP Systolic (mm Hg)132 mmHg BP Diastolic (mm Hg)84 mmHg BP Mean (mm Hg)100 mmHg Height in cm164.5 centimeter(s) Weight in kg115.7 kilogram(s) Weightstanding BMI (kg/m2)42.7 kg/M2 BSA (m2)2.29 M2 SpO2 (%)98 % SpO2 Patient Onroom air Pain Screening: Patient States Painno (0) Allergies: No Known Allergies: Active Outpatient Medication Profile: * Patient Currently Takes Medications as of 16-Feb-2022 13:00 documented in Structured Notes Sprintec 0.25 mg-35 mcg oral tablet: 1 tab(s) orally once a day Melatonin 10 mg oral tablet: 1-2 tab(s) orally once a day (at bedtime) levothyroxine 50 mcg (0.05 mg) oral tablet: 1 tab(s) orally once a day busPIRone 5 mg oral tablet: 1 tab in the morning and 2 tabs in the evening FLUoxetine 20 mg oral tablet: 2 tab(s) orally once a day (in the evening) Iron 100 Plus oral tablet: 1 tab(s) orally every other day Notification: NotificationsAnnual Screens Due Dates Advanced Directives: Feb 12, 2023 Family Violence: Feb 12, 2023 Depression (Due every 6 months for ONC only; all others use Annual date): Aug 11, 2022 Substance Use - Alcohol: Feb 12, 2023 Substance Use - Drugs: Feb 12, 2023 Nutrition: Feb 12, 2023 Learning: Feb 12, 2023 Travel History: COVID-19 Screening Completedno exposure or symptoms Travel or ExposureNO travel to International locations in the past 30 days Falls: Have you fallen in the last 6 monthsno Do you have a fear of fallingno Do you feel you need assistanceno Is the patient using an assistive deviceno Not a falls riskimplement environmental risk factors interventions Electronic Signatures: Becky Biggs (SAUD SANCHEZ) (Signed 27-Feb-2022 13:51) Authored: Patient Visit Information, Vital Signs, Allergies, Outpatient Medication Profile, Notification, Travel History, Falls Last Updated: 27-Feb-2022 13:51 by Becky Biggs (SAUD SANCHEZ) [facility] Note - Intakeon 02-23 Clinic Note - Intake Patient Visit Information: Visit TypeFollow Up Visit, iron Source of Informationpatient Admission Information: Admission Since Last VisitNo Vital Signs: Temp (degrees C)36 degrees C Temperatureskin Heart Rate (beats/min)80 beats per minute Respiration (breaths/min)16 breath per minute BP Systolic (mm Hg)130 mmHg BP Diastolic (mm Hg)83 mmHg BP Mean (mm Hg)98 mmHg Height in cm164.5 centimeter(s) Weight in kg116.8 kilogram(s) Weightstanding BMI (kg/m2)43.1 kg/M2 BSA (m2)2.31 M2 SpO2 (%)99 % SpO2 Patient Onroom air Pain Screening: Patient States Painno (0) Allergies: No Known Allergies: Active Outpatient Medication Profile: * Patient Currently Takes Medications as of 16-Feb-2022 13:00 documented in Structured Notes Sprintec 0.25 mg-35 mcg oral tablet: 1 tab(s) orally once a day Melatonin 10 mg oral tablet: 1-2 tab(s) orally once a day (at bedtime) levothyroxine 50 mcg (0.05 mg) oral tablet: 1 tab(s) orally once a day busPIRone 5 mg oral tablet: 1 tab in the morning and 2 tabs in the evening FLUoxetine 20 mg oral tablet: 2 tab(s) orally once a day (in the evening) Iron 100 Plus oral tablet: 1 tab(s) orally every other day Notification: NotificationsAnnual Screens Due Dates Advanced Directives: Feb 12, 2023 Family Violence: Feb 12, 2023 Depression (Due every 6 months for ONC only; all others use Annual date): Aug 11, 2022 Substance Use - Alcohol: Feb 12, 2023 Substance Use - Drugs: Feb 12, 2023 Nutrition: Feb 12, 2023 Learning: Feb 12, 2023 Travel History: COVID-19 Screening Completedno exposure or symptoms Travel or ExposureNO travel to International locations in the past 30 days Falls: Have you fallen in the last 6 monthsno Do you have a fear of fallingno Do you feel you need assistanceno Is the patient using an assistive deviceno Not a falls riskimplement environmental risk factors interventions Electronic Signatures: Becky Biggs (SAUD SANCHEZ) (Signed 23-Feb-2022 08:04) Authored: Patient Visit Information, Vital Signs, Allergies, Outpatient Medication Profile, Notification, Travel History, Falls Last Updated: 23-Feb-2022 08:04 by Becky Biggs (SAUD SANCHEZ) [facility] Note - Intakeon 02-21 Clinic Note - Intake Patient Visit Information: Visit TypeFollow Up Visit, iron Source of Informationpatient Admission Information: Admission Since Last VisitNo Vital Signs: Temp (degrees C)36 degrees C Temperatureskin Heart Rate (beats/min)104 beats per minute Respiration (breaths/min)16 breath per minute BP Systolic (mm Hg)124 mmHg BP Diastolic (mm Hg)68 mmHg BP Mean (mm Hg)86 mmHg Height in cm164.5 centimeter(s) Weight in kg116.4 kilogram(s) Weightstanding BMI (kg/m2)43 kg/M2 BSA (m2)2.3 M2 SpO2 (%)98 % SpO2 Patient Onroom air Pain Screening: Patient States Painno (0) Allergies: No Known Allergies: Active Outpatient Medication Profile: * Patient Currently Takes Medications as of 16-Feb-2022 13:00 documented in Structured Notes Sprintec 0.25 mg-35 mcg oral tablet: 1 tab(s) orally once a day Melatonin 10 mg oral tablet: 1-2 tab(s) orally once a day (at bedtime) levothyroxine 50 mcg (0.05 mg) oral tablet: 1 tab(s) orally once a day busPIRone 5 mg oral tablet: 1 tab in the morning and 2 tabs in the evening FLUoxetine 20 mg oral tablet: 2 tab(s) orally once a day (in the evening) Iron 100 Plus oral tablet: 1 tab(s) orally every other day Notification: NotificationsAnnual Screens Due Dates Advanced Directives: Feb 12, 2023 Family Violence: Feb 12, 2023 Depression (Due every 6 months for ONC only; all others use Annual date): Aug 11, 2022 Substance Use - Alcohol: Feb 12, 2023 Substance Use - Drugs: Feb 12, 2023 Nutrition: Feb 12, 2023 Learning: Feb 12, 2023 Travel History: COVID-19 Screening Completedno exposure or symptoms Travel or ExposureNO travel to International locations in the past 30 days Falls: Have you fallen in the last 6 monthsno Do you have a fear of fallingno Do you feel you need assistanceno Is the patient using an assistive deviceno Not a falls riskimplement environmental risk factors interventions Electronic Signatures: Becky Biggs (SAUD SANCHEZ) (Signed 21-Feb-2022 13:13) Authored: Patient Visit Information, Vital Signs, Allergies, Outpatient Medication Profile, Notification, Travel History, Falls Last Updated: 21-Feb-2022 13:13 by Becky Biggs II) [facility] Note - Intakeon 02-19 Clinic Note - Intake Patient Visit Information: Visit TypeFollow Up Visit, iron Source of Informationpatient Admission Information: Admission Since Last VisitNo Vital Signs: Temp (degrees C)36.2 degrees C Temperatureskin Heart Rate (beats/min)93 beats per minute Respiration (breaths/min)16 breath per minute BP Systolic (mm Hg)131 mmHg BP Diastolic (mm Hg)75 mmHg BP Mean (mm Hg)93 mmHg Height in cm164.5 centimeter(s) Weight in kg116.6 kilogram(s) Weightstanding BMI (kg/m2)43 kg/M2 BSA (m2)2.3 M2 SpO2 (%)99 % SpO2 Patient Onroom air Pain Screening: Patient States Painno (0) Allergies: No Known Allergies: Active Outpatient Medication Profile: * Patient Currently Takes Medications as of 16-Feb-2022 13:00 documented in Structured Notes Sprintec 0.25 mg-35 mcg oral tablet: 1 tab(s) orally once a day Melatonin 10 mg oral tablet: 1-2 tab(s) orally once a day (at bedtime) levothyroxine 50 mcg (0.05 mg) oral tablet: 1 tab(s) orally once a day busPIRone 5 mg oral tablet: 1 tab in the morning and 2 tabs in the evening FLUoxetine 20 mg oral tablet: 2 tab(s) orally once a day (in the evening) Iron 100 Plus oral tablet: 1 tab(s) orally every other day Notification: NotificationsAnnual Screens Due Dates Advanced Directives: Feb 12, 2023 Family Violence: Feb 12, 2023 Depression (Due every 6 months for ONC only; all others use Annual date): Aug 11, 2022 Substance Use - Alcohol: Feb 12, 2023 Substance Use - Drugs: Feb 12, 2023 Nutrition: Feb 12, 2023 Learning: Feb 12, 2023 Travel History: COVID-19 Screening Completedno exposure or symptoms Travel or ExposureNO travel to International locations in the past 30 days Falls: Have you fallen in the last 6 monthsno Do you have a fear of fallingno Do you feel you need assistanceno Is the patient using an assistive deviceno Not a falls riskimplement environmental risk factors interventions Electronic Signatures: Becky Biggs (SAUD II) (Signed 19-Feb-2022 13:30) Authored: Patient Visit Information, Vital Signs, Allergies, Outpatient Medication Profile, Notification, Travel History, Falls Last Updated: 19-Feb-2022 13:30 by Becky Biggs II) [facility] Note - Intakeon 02-16 Clinic Note - Intake Patient Visit Information: Patient StatesHere for first Iron Infusion. States she has had it in the past. Source of Informationpatient Vital Signs: Temp (degrees C)36.4 degrees C Temperatureskin Heart Rate (beats/min)115 beats per minute Respiration (breaths/min)20 breath per minute BP Systolic (mm Hg)Image has been removed. 146 mmHg BP Diastolic (mm Hg)Image has been removed. 96 mmHg BP Mean (mm Hg)Image has been removed. 112 mmHg Height in cm164.5 centimeter(s) Weight in kg116.5 kilogram(s) BMI (kg/m2)43 kg/M2 BSA (m2)2.3 M2 SpO2 (%)98 % SpO2 Patient Onroom air Pain Screening: Patient States Painno (0) Allergies: No Known Allergies: Active Outpatient Medication Profile: * Patient Currently Takes Medications as of 16-Feb-2022 13:00 documented in Structured Notes Sprintec 0.25 mg-35 mcg oral tablet: Last Dose Taken: , 1 tab(s) orally once a day Melatonin 10 mg oral tablet: Last Dose Taken: , 1-2 tab(s) orally once a day (at bedtime) levothyroxine 50 mcg (0.05 mg) oral tablet: Last Dose Taken: , 1 tab(s) orally once a day busPIRone 5 mg oral tablet: Last Dose Taken: , 1 tab in the morning and 2 tabs in the evening FLUoxetine 20 mg oral tablet: Last Dose Taken: , 2 tab(s) orally once a day (in the evening) Iron 100 Plus oral tablet: Last Dose Taken: , 1 tab(s) orally every other day Notification: NotificationsAnnual Screens Due Dates Advanced Directives: Feb 12, 2023 Family Violence: Feb 12, 2023 Depression (Due every 6 months for ONC only; all others use Annual date): Aug 11, 2022 Substance Use - Alcohol: Feb 12, 2023 Substance Use - Drugs: Feb 12, 2023 Nutrition: Feb 12, 2023 Learning: Feb 12, 2023 Travel History: COVID-19 Screening Completedno exposure or symptoms Travel or ExposureNO travel to International locations in the past 30 days Falls: Have you fallen in the last 6 monthsno Do you have a fear of fallingno Do you feel you need assistanceno Is the patient using an assistive deviceno Spiritual/Procedural: Spiritual/cultural/religi ous practices important for us to knowno Electronic Signatures: Adrienne Page (ASST HEAD N MGR) (Signed 16-Feb-2022 13:01) Authored: Patient Visit Information, Vital Signs, Allergies, Outpatient Medication Profile, Notification, Travel History, Falls, Spiritual/Procedural Last Updated: 16-Feb-2022 13:01 by Adrienne Page (ASST HEAD N MGR) [facility] HAPTOGLOBINon 02-14-2022 HAPTOGLOBIN 261 mg/dL High 30 - 200 [facility] Comment on above: Performed By: #### T SH2 #### [place] [address] AMB - Narrative Note-Distres s Screen Follow Upon 02-13-2022 AMB - Narrative Note-Distress Screen Follow Up Discipline and Description: Discipline: Distress Screen Follow Up Topic: Distress score 4 Description: Pt noted having worry and anxiety on the distress screen. Called to check in on pt today. Had to leave a vm. Let pt know the reason for the call and that Onc TECHNICAL STENOGRAPHER-S was calling to offer support and assist if needed. Pt is on psych medication and seems to have a hx of anxiety and depression. Asked pt to call back and let Onc TECHNICAL STENOGRAPHER-S know if her visit triggered more anxiety or pt is at baseline. Send Note Using Auto Fax: Note Recipients: Electronic Signatures: Fina Lester (AMY) (Signed 13-Feb-2022 12:21) Authored: Discipline and Description, To Send Document via Auto Fax Last Updated: 13-Feb-2022 12:21 by Fina Lester) [facility] CBC AND DIFFERENTIALon 02-13 Basophils (Bld) [#/Vol] 0.10 10*3/uL Normal 0.00 - 0.10 [facility] Comment on above: Performed By: #### V TB12 #### [address] [address] Basophils/100 WBC (Bld) 1.5 % Normal 0.0 - 2.0 [facility] Comment on above: Performed By: #### V TB12 #### [address] [address] Eosinophils (Bld) [#/Vol] 0.10 10*3/uL Normal 0.00 - 0.70 [facility] Comment on above: Performed By: #### V TB12 #### [address] [address] Eosinophils/100 WBC (Bld) 2.5 % Normal 0.0 - 6.0 [facility] Comment on above: Performed By: #### V TB12 #### [address] [address] Erythrocyte distribution width (RBC) [Ratio] 18.0 % High 11.5 - 14.5 [facility] Comment on above: Performed By: #### V TB12 #### [address] [address] Hematocrit (Bld) [Volume fraction] 26.6 % Low 36.0 - 46.0 [facility] Comment on above: Performed By: #### V TB12 #### [address] [address] Hemoglobin (Bld) [Mass/Vol] 8.0 g/dL Low 12.0 - 16.0 [facility] Comment on above: Performed By: #### V TB12 #### [address] [address] Lymphocytes (Bld) [#/Vol] 1.50 10*3/uL Normal 1.20 - 4.80 [facility] Comment on above: Performed By: #### V TB12 #### [address] [address] Lymphocytes/100 WBC (Bld) 29.5 % Normal 13.0 - 44.0 [facility] Comment on above: Performed By: #### V TB12 #### [address] [address] MCHC (RBC) [Mass/Vol] 30.2 g/dL Low 32.0 - 36.0 [facility] Comment on above: Performed By: #### V TB12 #### [address] [address] MCV (RBC) [Entitic vol] 61 fL Low 80 - 100 [facility] Comment on above: Performed By: #### V TB12 #### [address] [address] Monocytes (Bld) [#/Vol] 0.30 10*3/uL Normal 0.10 - 1.00 [facility] Comment on above: Performed By: #### V TB12 #### [address] [address] Monocytes/100 WBC (Bld) 6.6 % Normal 2.0 - 10.0 [facility] Comment on above: Performed By: #### V TB12 #### [address] [address] Neutrophils (Bld) [#/Vol] 3.00 10*3/uL Normal 1.20 - 7.70 [facility] Comment on above: Result Comment: Perc ent differential counts (%) should be interpreted in the context of the absolute cell counts (cells/L). Performed By: #### V TB12 #### [address] [address] Neutrophils/100 WBC (Bld) 59.9 % Normal 40.0 - 80.0 [facility] Comment on above: Performed By: #### V TB12 #### [address] [address] Platelets (Bld) [#/Vol] 401 10*3/uL Normal 150 - 450 [facility] Comment on above: Performed By: #### V TB12 #### [address] [address] RBC 4.38 x10E12/L Normal 4.00 - 5.20 [facility] Comment on above: Performed By: #### V TB12 #### [address] [address] WBC (Bld) [#/Vol] 5.0 10*3/uL Normal 4.4 - 11.3 [facility] Comment on above: Performed By: #### V TB12 #### [address] [address] COMPREHENSIVE PANELon 2021 Bilirubin [Mass/Vol] 0.3 mg/dL Normal 0.0 - 1.2 [facility] Comment on above: Performed By: #### C MP #### [address] [address] Albumin [Mass/Vol] 3.8 g/dL Normal 3.4 - 5.0 [facility] Comment on above: Performed By: #### C MP #### [address] [address] ALP [Catalytic activity/Vol] 69 U/L Normal 33 - 110 [facility] Comment on above: Performed By: #### C MP #### [address] [address] ALT [Catalytic activity/Vol] 9 U/L Normal 7 - 45 [facility] Comment on above: Result Comment: Mackenzie ents treated with Sulfasalazine may generate falsely decreased results for ALT. Performed By: #### C MP #### [address] [address] Anion gap [Moles/Vol] 11 mmol/L Normal 10 - 20 [facility] Comment on above: Performed By: #### C MP #### [address] [address] AST [Catalytic activity/Vol] 10 U/L Normal 9 - 39 [facility] Comment on above: Performed By: #### C MP #### [address] [address] Calcium [Mass/Vol] 8.3 mg/dL Low 8.6 - 10.3 [facility] Comment on above: Performed By: #### C MP #### [address] [address] Chloride [Moles/Vol] 107 mmol/L Normal 98 - 107 [facility] Comment on above: Performed By: #### C MP #### [address] [address] Creatinine [Mass/Vol] 0.57 mg/dL Normal 0.50 - 1.05 [facility] Comment on above: Performed By: #### C MP #### [address] [address] eGFR FEMALE >90 Normal >90 [facility] Comment on above: Result Comment: CALC ULATIONS OF ESTIMATED GFR ARE PERFORMED USING THE 2020 CKD-EPI STUDY REFIT EQUATION WITHOUT THE RACE VARIABLE FOR THE IDMS-TRACEABLE CREATININE METHODS. https://jasn.asnjournals.org/content/early//ASN.672586 7627 Performed By: #### C MP #### [address] [address] Glucose [Mass/Vol] 105 mg/dL High 74 - 99 [facility] Comment on above: Performed By: #### C MP #### [address] [address] HCO3 (Bld) [Moles/Vol] 24 mmol/L Normal 21 - 32 [facility] Comment on above: Performed By: #### C MP #### [address] [address] Potassium [Moles/Vol] 4.2 mmol/L Normal 3.5 - 5.3 [facility] Comment on above: Performed By: #### C MP #### [address] [address] Protein [Mass/Vol] 6.7 g/dL Normal 6.4 - 8.2 [facility] Comment on above: Performed By: #### C MP #### [address] [address] Sodium [Moles/Vol] 138 mmol/L Normal 136 - 145 [facility] Comment on above: Performed By: #### C MP #### [address] [address] Urea nitrogen [Mass/Vol] 12 mg/dL Normal 6 - 23 [facility] Comment on above: Performed By: #### C MP #### [address] [address] FERRITINon 02-13-2022 Ferritin [Mass/Vol] ng/mL Abnormal 8 - 150 [facility] [place] Comment on above: Performed By: #### Jackelyn TB12 #### [address] [address] IRON + TIBCon 02-13-2022 % SATURATION 3 % Low 25 - 45 [facility] Comment on above: Performed By: #### I BAYRON #### [address] [address] Iron [Mass/Vol] 16 ug/dL Low 35 - 150 [facility] Comment on above: Performed By: #### I BAYRON #### [address] [address] TIBC 458 ug/dL High 240 - 445 [facility] Comment on above: Performed By: #### I BAYRON #### [address] [address] LDHon 02-13-2022 LDH 116 U/L Normal 84 - 246 [facility] Comment on above: Performed By: #### Jackelyn TB12 #### [address] [address] RED CELL MORPHOLOGYon 2021 GIANT PLATELETS FEW Normal [facility] Comment on above: Performed By: #### Jackelyn TB12 #### [address] [address] HYPOCHROMASIA MILD Normal [facility] Comment on above: Performed By: #### Jackelyn TB12 #### [address] [address] RBC morphology finding Nom (Bld) SEE BELOW Normal [facility] Comment on above: Performed By: #### Jackelyn TB12 #### [address] [address] RETICULOCYTESon 02-13-2022 RETIC # 0.081 x10E12/L Normal 0.018 - 0.083 [facility] Comment on above: Performed By: #### R ETIC #### [address] [address] RETIC % 1.9 % Normal 0.5 - 2.0 [facility] Comment on above: Performed By: #### R ETIC #### [address] [address] VITAMIN B12on 02-13-2022 Cobalamin (Vitamin B12) [Mass/Vol] 181 pg/mL Low 211 - 911 [facility] Comment on above: Performed By: #### V TB12 #### [address] [address] AMB - Narrative Note-Distres s Screen Follow Upon 02-12-2022 AMB - Narrative Note-Distress Screen Follow Up Discipline and Description: Discipline: Distress Screen Follow Up Topic: scored a 4 Description: pt 's concerns were addressed by JIM Martinez at todays visit- no referrals at this time Send Note Using Auto Fax: Note Recipients: Electronic Signatures: Jocelyn Viramontes (MIHIR) (Signed 12-Feb-2022 08:10) Authored: Discipline and Description, To Send Document via Auto Fax Last Updated: 12-Feb-2022 08:10 by Jocelyn Viramontes) [facility] Note - Heme Onc-Benig n Heme New Visiton 02-12-2022 Clinic Note - Heme Onc-Benign Heme New Visit Patient Visit Information: Visit Type: Benign Heme New Visit History of Present Illness: ID Statement: SHERIN SANDOVAL is a 26 year old Female Interval History: Initial consult: 02/12/22 Reason: Anemia Referred Trentonritchie Valverde Patient is a 26 yo female with a PMH of Iron Deficiency Anemia, Hypothyroidism, and abnormal uterine bleeding was referred to benign hematology for consultation of Anemia. Today, patient presents for initial consultation. Patient reports that she has had issues with her iron in the past, dating back to high school, she was unable to donate blood due to low blood counts. She recalls in 2019 that she received Iron infusions and most recently a transfusion of PRBCs in November. She has been having heavy abnormal uterine bleeding consistently for the past 3 years, that are now being controlled by control. She has extreme fatigue, QUIROZ, chest pains with exertion. She reports having episodes of passing out, palpitations. She has moment of nausea, a few times with vomiting. She reports getting early satiety when eating, and weight loss of about 50lbs in the last several months. No abdominal pain or cramping. Constipation from taking Iron supplements, started taking a stool softener seems to be helping. Craves ice. Restless leg symptoms at night. She has recently been having hair loss in large amounts. She is taking Iron supplements 1 tablet 2 times a day and Vitamin B12 when she can remember. Denies night sweats, fever. Denies fatigue, chills, n/v/d, n/t. Denies any abnormal bleeding or bruising. No recurrent infections or lymphadenopathy. No joint/body pain. No known blood disorders in family. Has had surgery in past w/o issue. Never had blood/blood products. Denies NSAID use. 2017- had a miscarriage- atopic that resolved itself No Colonoscopy EGD UTD Cancer screenings Meds: see list PAST MEDICAL HISTORY: 1. Abnormal Uterine Bleeding 2. Hypothyroidism 3.Depression/Anxiety 4. Hypertension 5. History of Iron Deficiency PAST SURGICAL HISTORY: Ankle Surgery-2019 Lithotripsy - 2021 Ureteral Stent Placement Lacey Tooth extraction 2011 SOCIAL HISTORY: Never a Smoker No Alcohol Use No Illicit Drug Use Unemployed due to health issues FAMILY HISTORY: Mother- History of Iron Deficiency. VALERIE, Breat Cancer (Genetic test was negative) Father- Throat Cancer No other specific history of bleeding, clotting or malignant disorder in the family. REVIEW OF SYSTEMS: Pertinent finding as per the history above. There are no additional specific symptoms pertaining to eyes, ENT, hematologic, lymphatic, neurological, psychiatric, cardiac, pulmonary, GI, , endocrine, rheumatic, dermatological, or musculoskeletal systems. All other systems have been reviewed and generally negative and noncontributory. PHYSICAL EXAMINATION: GENERAL: Age-appropriate, in no acute discomfort. VITAL SIGNS: Reviewed in the EMR and were noted to be stable. HEENT: Normocephalic and atraumatic. Mucous membranes are moist. No oral lesions. NECK: Supple without lymphadenopathy. CHEST: Clear to auscultation bilaterally. HEART: Regular in rate and rhythm. No gallop, rub, or murmur. ABDOMEN: Soft, nontender, and nondistended. No hepatosplenomegaly. EXTREMITIES: No cyanosis, clubbing, or edema. NEUROLOGICAL: Alert, awake, and oriented. No gross focal deficit. LYMPHATICS: No significant lymphadenopathy. LAB DATA: Latest labs were reviewed in the EMR and from the outside sources. Allergies and Intolerances: Allergies: No Known Allergies: Active Outpatient Medication Profile: * Patient Currently Takes Medications as of 20-Nov-2021 15:41 documented in Structured Notes Sprintec 0.25 mg-35 mcg oral tablet: 1 tab(s) orally once a day FLUoxetine 20 mg oral tablet: 1 tab(s) orally once a day (in the evening) busPIRone 5 mg oral tablet: 2 tab(s) orally once a day (in the evening) levothyroxine 25 mcg (0.025 mg) oral tablet: 1 tab(s) orally once a day (in the morning) Iron 100 Plus oral tablet: 1 tab(s) orally 2 times a day Melatonin 10 mg oral tablet: 1-2 tab(s) orally once a day (at bedtime) Medical History: Panic attacks: ICD-10: F41.0, Status: Active Anxiety: ICD-10: F41.9, Status: Active Dental caries: ICD-10: K02.9, Status: Active Iron deficiency anemia: ICD-10: D50.9, Status: Active Surg History: History of cystoscopy: ICD-10: Z98.890, Status: Active History of lithotripsy: ICD-10: Z98.890, Status: Active Status post cystoscopy with ureteral stent placement: ICD-10: Z96.0, Status: Active Status post cystoscopy with ureteral stent placement: ICD-10: Z96.0, Status: Active History of oral surgery: ICD-10: Z98.890, Status: Active History of tonsillectomy and adenoidectomy: ICD-10: Z90.89, Status: Active Family History: No Family History items are recorded in the problem list. (more content not included)... Normal [facility] Note - Intakeon 02-12 Clinic Note - Intake Patient Visit Information: Visit TypeNew Visit, Chronic iron def anemia Source of Informationpatient Vital Signs: Temp (degrees C)36.5 degrees C Height in cm164.5 centimeter(s) Height Methodmeasured Heightstanding Weight in kg116.6 kilogram(s) Weightstanding BMI (kg/m2)43 kg/M2 BSA (m2)2.3 M2 Pain Screening: Patient States Painyes Current Pain Score (0-10)2 Pain Description/Locationmid chest Pain Scale UsedNumeric (0-10) Allergies: No Known Allergies: Active Outpatient Medication Profile: * Patient Currently Takes Medications as of 12-Feb-2022 08:06 documented in Structured Notes Sprintec 0.25 mg-35 mcg oral tablet: Last Dose Taken: , 1 tab(s) orally once a day FLUoxetine 20 mg oral tablet: Last Dose Taken: , 1 tab(s) orally once a day (in the evening) busPIRone 5 mg oral tablet: Last Dose Taken: , 2 tab(s) orally once a day (in the evening) Iron 100 Plus oral tablet: Last Dose Taken: , 1 tab(s) orally 2 times a day Melatonin 10 mg oral tablet: Last Dose Taken: , 1-2 tab(s) orally once a day (at bedtime) levothyroxine 50 mcg (0.05 mg) oral tablet: Last Dose Taken: , 1 tab(s) orally once a day Notification: NotificationsAnnual Screens Due Dates Advanced Directives: Aug 30, 2022 Family Violence: Aug 30, 2022 Depression (Due every 6 months for ONC only; all others use Annual date): Feb 26, 2022 Substance Use - Alcohol: Aug 30, 2022 Substance Use - Drugs: Aug 30, 2022 Nutrition: Aug 30, 2022 Learning: Aug 30, 2022 Travel History: COVID-19 Screening Completedno exposure or symptoms Travel or ExposureNO travel to International locations in the past 30 days Falls: Have you fallen in the last 6 monthsno Do you have a fear of fallingno Do you feel you need assistanceno Is the patient using an assistive deviceno Not a falls riskimplement environmental risk factors interventions Spiritual/Procedural: Spiritual/cultural/religi ous practices important for us to knowno [facility] Declaration of Mental Health Treatmentno Violence: Are you or have you been threatened or abused physically,emotionally or sexually abused by anyoneno Do you feel UNSAFE going back to the place you are livingno Depression: Past 2 wks: [place] down, depressed or hopelessno Past 2 wks: [place] little interest/pleasure doing thingsno Any Thoughts of Harming Othersno Substance: How many times in the past year have you had 4 or more drinks within 24 hours0 How many times in past year have you used recreational or prescription drugs for non-medical reasons0 Nutrition/Learning: In the past month, was there any day when you or anyone in your family went hungry because you didn't have enough foodno Primary LanguageEnglish Do you, or others today, need extra help due to problems with hearing,speaking, seeing, moving around or learningno Electronic Signatures: Patti Rausch (LANA) (Signed 12-Feb-2022 08:07) Authored: Patient Visit Information, Vital Signs, Allergies, Outpatient Medication Profile, Notification, Travel History, Falls, Spiritual/Procedural, Adv Dir, Violence, Depression, Substance, Nutrition/Learning Last Updated: 12-Feb-2022 08:07 by Patti Rausch (LANA) Normal [facility] Office Visit (Family Medicin e)on 02-06-2022 Follow-up visit Diagnoses/Problems Abnormal uterine bleeding (AUB) (626.9) (N93.9) Iron deficiency anemia (280.9) (D50.9) Chronic anemia (285.9) (D64.9) Blood loss anemia (280.0) (D50.0) Hypothyroidism (244.9) (E03.9) Orders Abnormal uterine bleeding (AUB), Iron deficiency anemia Follow-up visit in 2 months Outpatient Follow-up Status: Hold For - Scheduling Requested for: 06Feb2022 Blood loss anemia, Chronic anemia, Iron deficiency anemia Folate, Serum; Status:Active; Requested for:06Feb2022; Chronic anemia Vitamin B12, Serum; Status:Active; Requested for:06Feb2022; Chronic anemia, Iron deficiency anemia Benign Hematology Referral Evaluation and Treatment Evaluate AND Treat chronic anemia, HBG remains 8-8.5 despite oral iron twice daily. Status: Hold For - Scheduling Requested for: 06Feb2022 Provider Impressions Iron deficient Anemia: Will start on iron infusion, written orders sent to infusion clinics, continue on oral iron supplement as well. Will check folate and. vitamin B12 Chronic Anemia: Will refer to hematology for further work up. Hypothyroidism: TSH is currently at goal. follow up in 2 months Chief Complaint Weakness/not feeling well. History of Present Illness Sherin is a 26 yo female, here today with complaints of weakness, not feeling well. Sherin has anemia, iron deficiency associated with uterine bleeding, she has i unit PRBC transfusion in November, she is following with Dr Michael TELLES who has her on [facility] was 2 weeks ago, is only having bleeding with placebo pill, continues on oral contraceptive. Patient reports she has had low iron most of her life, she remembers in high school she was unable to give blood due to low blood counts. has had iron infusion in the past prior to 2019 She is having increase in SOB, specifically when going up stairs, she does reports some episodes of dizziness. She is compliant with Iron supplement twice daily 'Scores and Scales' CHARLINE-7 [id number] CHARLINE-7 Total Score20 12 Feeling nervous, anxious or on edgeNearly every day - 3 Over half the days - 2 Not being able to stop or control worryingNearly every day - 3 Over half the days - 2 Worrying too much about different thingsNearly every day - 3 Several days - 1 Trouble relaxingNearly every day - 3 Over half the days - 2 Being so restless that it's hard to sit stillNearly every day - 3 Nearly every day - 3 Becoming easily annoyed or irritableOver half the days - 2 Several days - 1 Feeling afraid as if something awful might happenNearly every day - 3 Several days - 1 Review of Systems Constitutional: no chills, no fever and no night sweats. Cardiovascular: no chest pain, no intermittent leg claudication, no lower extremity edema, no palpitations and no syncope. Respiratory: shortness of breath during exertion, but no cough, no shortness of breath at rest and no wheezing. Gastrointestinal: nausea, but no abdominal pain, no blood in stools, no constipation, no diarrhea, no melena, no rectal pain and no vomiting. Genitourinary: no unexplained vaginal bleeding, no dysuria, no change in urinary frequency, no urinary hesitancy, no feelings of urinary urgency and no vaginal discharge. Integumentary: no new skin lesions and no rashes. Psychiatric: no anxiety, no depression, no anhedonia and no substance use disorders. Active Problems Abdominal pain (789.00) (R10.9) Abnormal uterine bleeding (AUB) (626.9) (N93.9) Blood loss anemia (280.0) (D50.0) Contraception management (V25.9) (Z30.9) Depression with anxiety (300.4) (F41.8) Generalized anxiety disorder (300.02) (F41.1) Hypertension (401.9) (I10) Hypothyroidism (244.9) (E03.9) Inability to urinate (788.99) (R33.9) Iron deficiency anemia (280.9) (D50.9) Left flank pain (789.09) (R10.9) Left renal stone (592.0) (N20.0) Lightheadedness (780.4) (R42) Low back pain (724.2) (M54.50) Multinodular goiter (241.1) (E04.2) Nausea in adult (787.02) (R11.0) Negative test (V72.41) (Z32.02) Panic attacks (300.01) (F41.0) Risk for sexually transmitted disease (V69.2) (Z72.51) Seasonal allergies (477.9) (J30.2) Situational hypertension (796.2) (R03.0) Past Medical History History of miscarriage (V13.29) (Z87.59) 2015 History of Menstruation AGE 11 Surgical History History of Ankle surgery 2019 History of Lithotripsy 2021 History of Ureteral stent placement History of Lacey tooth extraction 2012 Family History Family history of malignant neoplasm of breast (V16.3) (Z80.3) mom genetics negative Family history of throat cancer (V16.0) (Z80.0) Social History Alcohol use (V49.89) (Z72.89) Does not have living will Never smoker No illicit drug use Sexually active Unemployed (V62.0) (Z56.0) Allergies No Known Drug Allergies Recorded By: Siena Howell; 10/26/2019 3:38:05 PM Current Meds Medication NameInstructionReason Sprintec 28 0.25-35 MG-MCG Oral TabletTAKE 1 TABLET Daily Pt to skip (more content not included)... Normal [facility] Tobacco Screening.on 022 Tobacco use status CPHS b) No [facility] Work Phone: CBCon 02-05-2022 Erythrocyte distribution width (RBC) [Ratio] 18.2 % High 11.5 - 14.5 [facility] Work Phone: [phone] Comment on above: Reference Range: 11. 5 - 14.5 Performed By: #### C BC #### [address] [address] Hematocrit (Bld) [Volume fraction] 27.4 % Low 36.0 - 46.0 [facility] Work Phone: [phone] Comment on above: Reference Range: 36. 0 - 46.0 Performed By: #### C BC #### [address] [address] Hemoglobin (Bld) [Mass/Vol] 8.1 g/dL Low 12.0 - 16.0 [facility] Work Phone: [phone] Comment on above: Reference Range: 12. 0 - 16.0 Performed By: #### C BC #### [address] [address] MCHC (RBC) [Mass/Vol] 29.6 g/dL Low 32.0 - 36.0 [facility] Work Phone: [phone] Comment on above: Reference Range: 32. 0 - 36.0 Performed By: #### C BC #### [address] [address] MCV (RBC) [Entitic vol] 61 fL Low 80 - 100 [facility] Work Phone: [phone] Comment on above: Performed By: #### C BC #### [address] [address] Platelets (Bld) [#/Vol] 433 10*3/uL Normal 150 - 450 [facility] Work Phone: Comment on above: Performed By: #### C BC #### [address] [address] RBC 4.48 x10E12/L Normal 4.00 - 5.20 [facility] Comment on above: Performed By: #### C BC #### [address] [address] WBC (Bld) [#/Vol] 6.0 10*3/uL Normal 4.4 - 11.3 [facility] Work Phone: Comment on above: Performed By: #### C BC #### [address] [address] Laboratory - Hematology and Cell countson 02-05-2022 RBC (Bld) [#/Vol] 4.48 {x10E12/L} See Below [facility] Work Phone: Comment on above: Reference Range: 4.0 0 - 5.20 TSH WITH REFLEX TO FREE T4 I F ABNORMALon 02-05-2022 TSH Qn 2.30 m[IU]/L Normal 0.44 - 3.98 [facility] Work Phone: Comment on above: Reference Range: 0.4 4 - 3.98 TSH testing is performed using different testing methodology at [facility] than at other [facility]. Direct result comparisons should only be made within the same method. Result Comment: TSH testing is performed using different testing methodology at [facility] than at other [facility]. Direct result comparisons should only be made within the same method. Performed By: #### V TB12 #### [address] [address] HCTon 12-18-2021 Hematocrit (Bld) [Volume fraction] 27.4 % Low 36.0 - 46.0 [facility] Comment on above: Performed By: #### V TB12 #### [address] [address] HGBon 12-18-2021 Hemoglobin (Bld) [Mass/Vol] 8.5 g/dL Low 12.0 - 16.0 [facility] Comment on above: Performed By: #### C #### [facility] [address] [place] [address] Hematocriton 12-18-2021 Hematocrit (Bld) [Volume fraction] 27.4 % below low threshold See Below [facility] [address] [employer] Work Phone: Comment on above: Reference Range: 36. 0 - 46.0 Hemoglobinon 12-18-2021 Hemoglobin (Bld) [Mass/Vol] 8.5 g/dL below low threshold See Below [facility] [employer] Work Phone: Comment on above: Reference Range: 12. 0 - 16.0 No Panel Informationon 12-18 Nearly every day - 3 [facility] Work Phone: Over half the days - 2 -[facility] Work Phone: Severe Anxiety [facility] Work Phone: Extremely difficult [facility] Work Phone: Comment on above: How difficult have t hose problems made it for you to do your work, take care of things at home, or get along with other people? 20 1 -[facility] Work Phone: Comment on above: Over the last two we eks, how often have you been bothered by the following problems? Feeling nervous, anxious, or on edge: Nearly every day - 3Not being able to stop or control worrying: Nearly every day - 3Worrying too much about different things: Nearly every day - 3Trouble relaxing: Nearly every day - 3Being so restless that it's hard to sit still: Nearly every day - 3Becoming easily annoyed or irritable: Over half the days - 2Feeling afraid as if something awful might happen: Nearly every day - 3 Office Visit (Family Medicin e)on 12-18-2021 Follow-up visit Diagnoses/Problems Blood loss anemia (280.0) (D50.0) Iron deficiency anemia (280.9) (D50.9) Generalized anxiety disorder (300.02) (F41.1) Orders Blood loss anemia Hematocrit; Status:In Progress - Specimen/Data Collected; Done: [id number] Blood loss anemia, Generalized anxiety disorder, Iron deficiency anemia Follow-up visit in 3 months Outpatient Follow-up Status: Complete Done: [id number] Blood loss anemia, Iron deficiency anemia Hemoglobin; Status:In Progress - Specimen/Data Collected; Done: [id number] Generalized anxiety disorder Renew: FLUoxetine HCl - 20 MG Oral Capsule; TAKE 2 CAPSULE Daily Provider Impressions CHARLINE: CHARLINE-7 score increased at , will increase her fluoxetine to mg daily, instructed to take mg daily for 2 weeks, then start mg daily. Blood loss/Iron deficient Anemia: Will check H/H goal >8.5, continue on iron supplement twice daily. Follow up in 3 months Chief Complaint 6 week follow-up. History of Present Illness Sherin is a 26 yo female here today to follow up on blood loss and iron deficient anemia as well as anxiety. Feeling better, lightheadedness has improved, has some days with improved energy. Has not had any bleeding for 2 weeks, not even spotting. Continues to struggle with anxiety daily . She states was able to drive in a storm, however is still unable to go to movie theater due to fears of live shooter, she states she realizes this is unlikely but continue to have these type of fears. Otherwise no health concerns She does have hope of having children once able, encouraged to discuss with HAND BOOKED FOLDER AND STITCHER for future planning. 'Scores and Scales' CHARLINE-7 [id number] CHARLINE-7 Total Score20 12 Feeling nervous, anxious or on edgeNearly every day - 3 Over half the days - 2 Not being able to stop or control worryingNearly every day - 3 Over half the days - 2 Worrying too much about different thingsNearly every day - 3 Several days - 1 Trouble relaxingNearly every day - 3 Over half the days - 2 Being so restless that it's hard to sit stillNearly every day - 3 Nearly every day - 3 Becoming easily annoyed or irritableOver half the days - 2 Several days - 1 Feeling afraid as if something awful might happenNearly every day - 3 Several days - 1 Review of Systems Constitutional: no chills, no fever and no night sweats. Cardiovascular: no chest pain, no intermittent leg claudication, no lower extremity edema, no palpitations and no syncope. Respiratory: no cough, no shortness of breath during exertion, no shortness of breath at rest and no wheezing. Gastrointestinal: no abdominal pain, no blood in stools, no constipation, no diarrhea, no melena, no nausea, no rectal pain and no vomiting. Genitourinary: no dysuria, no change in urinary frequency, no urinary hesitancy, no feelings of urinary urgency and no vaginal discharge. Psychiatric: anxiety, but no depression, no emotional problems, no homicidal thoughts and no suicidal ideations. Endocrine: no changes in appetite and no heat/cold intolerance. Active Problems Abdominal pain (789.00) (R10.9) Abnormal uterine bleeding (AUB) (626.9) (N93.9) Blood loss anemia (280.0) (D50.0) Contraception management (V25.9) (Z30.9) Depression with anxiety (300.4) (F41.8) Generalized anxiety disorder (300.02) (F41.1) Hypertension (401.9) (I10) Hypothyroidism (244.9) (E03.9) Inability to urinate (788.99) (R33.9) Iron deficiency anemia (280.9) (D50.9) Left flank pain (789.09) (R10.9) Left renal stone (592.0) (N20.0) Lightheadedness (780.4) (R42) Low back pain (724.2) (M54.50) Multinodular goiter (241.1) (E04.2) Nausea in adult (787.02) (R11.0) Negative test (V72.41) (Z32.02) Panic attacks (300.01) (F41.0) Risk for sexually transmitted disease (V69.2) (Z72.51) Seasonal allergies (477.9) (J30.2) Situational hypertension (796.2) (R03.0) Past Medical History History of miscarriage (V13.29) (Z87.59) 2015 History of Menstruation AGE 11 Surgical History History of Ankle surgery 2019 History of Lithotripsy 2021 History of Ureteral stent placement History of Lacey tooth extraction 2011 Family History Family history of malignant neoplasm of breast (V16.3) (Z80.3) mom genetics negative Family history of throat cancer (V16.0) (Z80.0) Social History Alcohol use (V49.89) (Z72.89) Does not have living will Never smoker No illicit drug use Sexually active Unemployed (V62.0) (Z56.0) Allergies No Known Drug Allergies Recorded By: Siena Howell; 10/26/2019 3:38:05 PM Current Meds Medication NameInstructionReason Sprintec 28 0.25-35 MG-MCG Oral TabletTAKE 1 TABLET Daily Pt to skip every other placebo week.Abnormal uterine bleeding (AUB), Iron deficiency anemia busPIRone HCl - 5 MG Oral TabletTake 1 tablet in AM, and take 2 tablets at bedtimeGeneralized anxiety disorder FLUoxetine HCl - 20 MG Oral CapsuleTAKE 1 CAPSULE DailyGeneralized anxiety disorder Iron TABSTake 1 tablet (more content not included)... Normal [facility] TSHon 12-18-2021 TSH Qn 1.95 m[IU]/L Normal 0.44 - 3.98 [facility] Comment on above: Result Comment: TSH testing is performed using different testing methodology at [facility] than at other [facility]. Direct result comparisons should only be made within the same method. Performed By: #### T SH2 #### [place] [address] TSH - Thyroid Stimulating Ho rmone, Serumon 12-18-2021 TSH Qn 1.95 m[IU]/L See Below [facility] [address] [place] Work Phone: Comment on above: Reference Range: 0.4 4 - 3.98 TSH testing is performed using different testing methodology at [facility] than at other [facility]. Direct result comparisons should only be made within the same method. Tobacco Screening.on 022 Tobacco use status CPHS b) No [facility] Work Phone: [employer] - Office Visiton [employer] - Office Visit Diagnoses/Problems Assessed Hypothyroidism (244.9) (E03.9) Abnormal uterine bleeding (AUB) (626.9) (N93.9) Orders Renew: Levothyroxine Sodium 50 MCG Oral Tablet; TAKE 1 TABLET DAILY Follow-up visit in 3 months Outpatient Follow-up Status: Hold For - Scheduling Requested for: 11Dec2021 TSH - Thyroid Stimulating Hormone, Serum; Status:Active; Requested for:11Dec2021; Provider Impressions 1)AUB-endometrial biopsy benign. Patient being treated actively with hormones skipping every other cycle of high-dose control. Patient finally not bleeding. 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 Which is likely consistent the reason for her iron deficiency anemia. Agree with PCP for iron transfusions while controlling this hormonally. Given the controls finally doing what it should and were treating her thyroid we will continue to hold management and follow-up in another cycle or 2 to reevaluate 2) hypothyroidism-given the follow-up TSH was still abnormal and were chasing her bleeding will increase her thyroid to 50 mcg and reevaluate in a month to review and see if improving Chief Complaint PT IS HERE TODAY FOR EMB RESULTS. STATES HAS NOT HAD ANY BLEEDING FOR 2 WEEKS. History of Present [id number] presents for follow-up from endometrial biopsy results. Patient notes she finished and took the placebo pills on the second pack of her control and had a little bit heavier. patient notes she started a new pack and has not bled the first week of pills that she has been taking. After further clarifying patient is basically been bleeding this entire time on the new control with sounds like a moderate period, soaking a overnight pad moderately every 2-3 hours. Patient was in the ED for transfusion at the longer was well. Patient feeling much better afterwards. Review of Systems Constitutional: No fevers, chills Eye:no vision changes Respiratory: no SOB Cardiovascular: no chest pain Gastrointestinal: No nausea, vomiting, diarrhea, constipation, abdominal pain Genitourinary:no dysuria Gynecology: See HPI Active Problems Problems Abdominal pain (789.00) (R10.9) Abnormal uterine bleeding (AUB) (626.9) (N93.9) Blood loss anemia (280.0) (D50.0) Contraception management (V25.9) (Z30.9) Depression with anxiety (300.4) (F41.8) Generalized anxiety disorder (300.02) (F41.1) Hypertension (401.9) (I10) Hypothyroidism (244.9) (E03.9) Inability to urinate (788.99) (R33.9) Iron deficiency anemia (280.9) (D50.9) Left flank pain (789.09) (R10.9) Left renal stone (592.0) (N20.0) Lightheadedness (780.4) (R42) Low back pain (724.2) (M54.50) Multinodular goiter (241.1) (E04.2) Nausea in adult (787.02) (R11.0) Negative test (V72.41) (Z32.02) Panic attacks (300.01) (F41.0) Risk for sexually transmitted disease (V69.2) (Z72.51) Seasonal allergies (477.9) (J30.2) Situational hypertension (796.2) (R03.0) Past Medical History Problems History of miscarriage (V13.29) (Z87.59) 2015 History of Menstruation AGE 11 Surgical History Problems History of Ankle surgery 2019 History of Lithotripsy 2021 History of Ureteral stent placement History of Lacey tooth extraction 2012 Family History Mother Family history of malignant neoplasm of breast (V16.3) (Z80.3) mom genetics negative Father Family history of throat cancer (V16.0) (Z80.0) Social History Problems Alcohol use (V49.89) (Z72.89) Does not have living will Never smoker No illicit drug use Sexually active Unemployed (V62.0) (Z56.0) Allergies Medication No Known Drug Allergies Recorded By: Siena Howell; 10/26/2019 3:38:05 PM Current Meds Medication NameInstruction busPIRone HCl - 5 MG Oral TabletTake 1 tablet in AM, and take 2 tablets at bedtime FLUoxetine HCl - 20 MG Oral CapsuleTAKE 1 CAPSULE Daily Iron TABS Levothyroxine Sodium 25 MCG Oral TabletTAKE 1 TABLET BY MOUTH EVERY DAY Lisinopril 5 MG Oral TabletTAKE 1 TABLET DAILY. Sprintec 28 0.25-35 MG-MCG Oral TabletTAKE 1 TABLET Daily Pt to skip every other placebo week. Vitals Vital Signs Recorded: 11Dec2021 01:49PM [id number] Myubkdnfe49 Height5 ft 4 in Bfzsmd035 lb 2 oz BMI Xyzyyahglq23.68 kg/m2 BSA Calculated2.21 Physical Exam General: None acute distress Eye: Intraocular movements are intact HEENT: Normocephalic Cardiovascular: Regular rate Respiratory: Respirations are nonlabored Gastrointestinal: Nondistended Musculoskeletal: Normal range of motion Neurologic: Alert and oriented x3 Psychiatric: Cooperative appropriate mood and affect. Results/Data Complete Blood [id number] 09:12AMTrenton Valverde Test NameResultFlagReference White Blood Cell Count5.6 x10E9/L4.4 - 11.3 Red Blood Cell Count4.43 x10E12/LSee Below Reference Range: 4.00 - 5.20 Hemoglobin8.7 g/dLLSee Below Reference Range: 12.0 - 16.0 HCT28.6 %LSee Below Reference Range: (more content not included)... [facility] 11-28-2021 Erythrocyte distribution width (RBC) [Ratio] 20.3 % High 11.5 - 14.5 [facility] Comment on above: Performed By: #### V TB12 #### [address] [address] Hematocrit (Bld) [Volume fraction] 28.6 % Low 36.0 - 46.0 [facility] Comment on above: Performed By: #### V TB12 #### [address] [address] Hemoglobin (Bld) [Mass/Vol] 8.7 g/dL Low 12.0 - 16.0 [facility] Comment on above: Performed By: #### V TB12 #### [address] [address] MCHC (RBC) [Mass/Vol] 30.4 g/dL Low 32.0 - 36.0 [facility] Comment on above: Performed By: #### V TB12 #### [address] [address] MCV (RBC) [Entitic vol] 64 fL Low 80 - 100 [facility] Comment on above: Performed By: #### V TB12 #### [address] [address] Platelets (Bld) [#/Vol] 397 10*3/uL Normal 150 - 450 [facility] Comment on above: Performed By: #### V TB12 #### [address] [address] RBC 4.43 x10E12/L Normal 4.00 - 5.20 [facility] Comment on above: Performed By: #### V TB12 #### [address] [address] WBC (Bld) [#/Vol] 5.6 10*3/uL Normal 4.4 - 11.3 [facility] Comment on above: Performed By: #### V TB12 #### [address] [address] Laboratory - Hematology and Cell countson 11-28-2021 Erythrocyte distribution width (RBC) [Ratio] 20.3 % above high threshold See Below [facility] Work Phone: [phone] Comment on above: Reference Range: 11. 5 - 14.5 Hematocrit (Bld) [Volume fraction] 28.6 % below low threshold See Below [facility] Work Phone: [phone] Comment on above: Reference Range: 36. 0 - 46.0 Hemoglobin (Bld) [Mass/Vol] 8.7 g/dL below low threshold See Below [facility] Work Phone: [phone] Comment on above: Reference Range: 12. 0 - 16.0 MCHC (RBC) [Mass/Vol] 30.4 g/dL below low threshold See Below [facility] Work Phone: [phone] Comment on above: Reference Range: 32. 0 - 36.0 MCV (RBC) [Entitic vol] 64 fL below low threshold 80 - 100 [facility] Work Phone: [phone] Platelets (Bld) [#/Vol] 397 10*3/uL 150 - 450 [facility] Work Phone: RBC (Bld) [#/Vol] 4.43 {x10E12/L} See Below [facility] Work Phone: Comment on above: Reference Range: 4.0 0 - 5.20 WBC (Bld) [#/Vol] 5.6 10*3/uL 4.4 - 11.3 [facility] Work Phone: CBCon 11-23-2021 Erythrocyte distribution width (RBC) [Ratio] 18.3 % High 11.5 - 14.5 [facility] Comment on above: Performed By: #### C BC #### [address] [address] Hematocrit (Bld) [Volume fraction] 26.0 % Low 36.0 - 46.0 [facility] Comment on above: Performed By: #### C BC #### [address] [address] Hemoglobin (Bld) [Mass/Vol] 7.9 g/dL Low 12.0 - 16.0 [facility] Comment on above: Performed By: #### C BC #### [address] [address] MCHC (RBC) [Mass/Vol] 30.6 g/dL Low 32.0 - 36.0 [facility] Comment on above: Performed By: #### C BC #### [address] [address] MCV (RBC) [Entitic vol] 64 fL Low 80 - 100 [facility] Comment on above: Performed By: #### C BC #### [address] [address] Platelets (Bld) [#/Vol] 350 10*3/uL Normal 150 - 450 [facility] Comment on above: Performed By: #### C BC #### [address] [address] RBC 4.04 x10E12/L Normal 4.00 - 5.20 [facility] Comment on above: Performed By: #### C BC #### [facility] [address] [place] [address] WBC (Bld) [#/Vol] 6.1 10*3/uL Normal 4.4 - 11.3 [facility] Comment on above: Performed By: #### C BC #### [facility] [address] [place] [address] Laboratory - Hematology and Cell countson 11-23-2021 Erythrocyte distribution width (RBC) [Ratio] 18.3 % above high threshold See Below [facility] Work Phone: [phone] Comment on above: Reference Range: 11. 5 - 14.5 Hematocrit (Bld) [Volume fraction] 26.0 % below low threshold See Below [facility] Work Phone: [phone] Comment on above: Reference Range: 36. 0 - 46.0 Hemoglobin (Bld) [Mass/Vol] 7.9 g/dL below low threshold See Below [facility] Work Phone: [phone] Comment on above: Reference Range: 12. 0 - 16.0 MCHC (RBC) [Mass/Vol] 30.6 g/dL below low threshold See Below [facility] Work Phone: [phone] Comment on above: Reference Range: 32. 0 - 36.0 MCV (RBC) [Entitic vol] 64 fL below low threshold 80 - 100 [facility] Work Phone: [phone] Platelets (Bld) [#/Vol] 350 10*3/uL 150 - 450 [facility] Work Phone: [phone] RBC (Bld) [#/Vol] 4.04 {x10E12/L} See Below [facility] Work Phone: [phone] Comment on above: Reference Range: 4.0 0 - 5.20 WBC (Bld) [#/Vol] 6.1 10*3/uL 4.4 - 11.3 [facility] Work Phone: [phone] Office Visit ([facility] e)on 11-21-2021 Follow-up visit Diagnoses/Problems Blood loss anemia (280.0) (D50.0) Abnormal uterine bleeding (AUB) (626.9) (N93.9) Hypertension (401.9) (I10) Orders Blood loss anemia Complete Blood Count; Status:Active; Requested for:[id number]; Hypertension Start: Lisinopril 5 MG Oral Tablet; TAKE 1 TABLET DAILY Provider Impressions Blood loss Anemia: Will recheck CBC in 3 days, if HGB is improved will start on IV iron infusions, if HGB has no improvement will need further blood transfusion. Continue taking oral iron supplement. HTN: Blood pressure remain elevated, will start on Lisinopril 5 mg daily. Patient to continue monitoring BP at home. Will call with lab result and schedule follow up at that time Chief Complaint HTN - Was in the ER yesterday for low hemoglobin. History of Present Illness Sherin is a 26 yo female here to follow up on ER visit, anemia, and HTN. She was sent by me to Er yesterday due to HGB at 7.0, to receive blood transfusion. She received 1 unit PRBC's in ER and was released. She reports uterine bleeding continue, she reports blood flow is now at a normal period flow, using 1 pad every 3-4 hours. She reports no days without vaginal bleeding. She is taking Sprintec as prescribed. Home blood pressure reading rand 110-145. Follow up with DR Webb on 12/11/21 'Scores and Scales' CHARLINE-7 [id number] CHARLINE-7 Total Score12 Feeling nervous, anxious or on edgeOver half the days - 2 Not being able to stop or control worryingOver half the days - 2 Worrying too much about different thingsSeveral days - 1 Trouble relaxingOver half the days - 2 Being so restless that it's hard to sit stillNearly every day - 3 Becoming easily annoyed or irritableSeveral days - 1 Feeling afraid as if something awful might happenSeveral days - 1 Review of Systems Constitutional: feeling tired, but no chills, no fever and no night sweats. Cardiovascular: no chest pain, no intermittent leg claudication, no lower extremity edema, no palpitations and no syncope. Respiratory: no cough, no shortness of breath during exertion, no shortness of breath at rest and no wheezing. Gastrointestinal: no abdominal pain, no blood in stools, no constipation, no diarrhea, no melena, no nausea, no rectal pain and no vomiting. Genitourinary: unexplained vaginal bleeding, but no dysuria, no change in urinary frequency, no urinary hesitancy, no feelings of urinary urgency and no vaginal discharge. Neurological: no difficulty walking, no headache, no limb weakness, no numbness and no tingling. Psychiatric: no anxiety, no depression, no anhedonia and no substance use disorders. Active Problems Abdominal pain (789.00) (R10.9) Abnormal uterine bleeding (AUB) (626.9) (N93.9) Blood loss anemia (280.0) (D50.0) Contraception management (V25.9) (Z30.9) Depression with anxiety (300.4) (F41.8) Generalized anxiety disorder (300.02) (F41.1) Hypertension (401.9) (I10) Hypothyroidism (244.9) (E03.9) Inability to urinate (788.99) (R33.9) Iron deficiency anemia (280.9) (D50.9) Left flank pain (789.09) (R10.9) Left renal stone (592.0) (N20.0) Lightheadedness (780.4) (R42) Low back pain (724.2) (M54.50) Multinodular goiter (241.1) (E04.2) Nausea in adult (787.02) (R11.0) Negative test (V72.41) (Z32.02) Panic attacks (300.01) (F41.0) Risk for sexually transmitted disease (V69.2) (Z72.51) Seasonal allergies (477.9) (J30.2) Situational hypertension (796.2) (R03.0) Past Medical History History of miscarriage (V13.29) (Z87.59) 2015 History of Menstruation AGE 11 Surgical History History of Ankle surgery 2019 History of Lithotripsy 2021 History of Ureteral stent placement History of Lacey tooth extraction 2011 Family History Family history of malignant neoplasm of breast (V16.3) (Z80.3) mom genetics negative Family history of throat cancer (V16.0) (Z80.0) Social History Alcohol use (V49.89) (Z72.89) Does not have living will Never smoker No illicit drug use Sexually active Unemployed (V62.0) (Z56.0) Allergies No Known Drug Allergies Recorded By: Siena Howell; 10/26/2019 3:38:05 PM Current Meds Medication NameInstructionReason Sprintec 28 0.25-35 MG-MCG Oral TabletTAKE 1 TABLET Daily Pt to skip every other placebo week.Abnormal uterine bleeding (AUB), Iron deficiency anemia busPIRone HCl - 5 MG Oral TabletTake 1 tablet in AM, and take 2 tablets at bedtimeGeneralized anxiety disorder FLUoxetine HCl - 20 MG Oral CapsuleTAKE 1 CAPSULE DailyGeneralized anxiety disorder Iron TABSHealth Maintenance Levothyroxine Sodium 25 MCG Oral TabletTAKE 1 TABLET BY MOUTH EVERY DAYHypothyroidism Ondansetron 4 MG Oral Tablet DisintegratingTake 1 tablet twice dailyNausea in adult Vitals Vital Signs Recorded: [id number] 10:06AM Heart Rate79 Nisokyoh887 Hgrbkdpsw45 Height5 ft 4 in Lfdxwm948 lb 1 oz BMI Wewksjyouo76.36 kg/m2 BSA Calculated2.22 Tobacco Useb) No O2 [id number] Physical (more content not included)... Normal [facility] Tobacco Screening.on 022 Tobacco use status [facility] b) No -[facility] Work Phone: ABO/RH GROUP TESTon 11-21-19 22 ABO TYPE O Normal [facility] Comment on above: Performed By: #### L ACT #### [place] [address] RH TYPE Negative Normal [facility] Comment on above: Result Comment: Revi ew your Rh Negative female patient's potential need for Rh Immune Globulin (RhIg)administration. Performed By: #### L ACT #### [address] [address] BASIC METABOLIC PANELon 11-10 Anion gap [Moles/Vol] 12 mmol/L Normal - [facility] Comment on above: Performed By: #### L ACT #### [address] [address] Calcium [Mass/Vol] 8.7 mg/dL Normal 8.6 - 10.3 [facility] Comment on above: Performed By: #### L ACT #### [address] [address] Chloride [Moles/Vol] 109 mmol/L High 98 - [address] [facility] Comment on above: Performed By: #### L ACT #### [address] [address] Creatinine [Mass/Vol] 0.61 mg/dL Normal 0.50 - 1.05 [facility] Comment on above: Performed By: #### L ACT #### [address] [address] eGFR FEMALE >90 Normal >90 [facility] Comment on above: Result Comment: CALC ULATIONS OF ESTIMATED GFR ARE PERFORMED USING THE 2020 CKD-EPI STUDY REFIT EQUATION WITHOUT THE RACE VARIABLE FOR THE IDMS-TRACEABLE CREATININE METHODS. https://jasn.asnjournals.org/content/early//ASN.078184 0724 Performed By: #### L ACT #### [address] [address] Glucose [Mass/Vol] 87 mg/dL Normal 74 - 99 [facility] Comment on above: Performed By: #### L ACT #### [address] [address] HCO3 (Bld) [Moles/Vol] 22 mmol/L Normal 21 - 32 [facility] Comment on above: Performed By: #### L ACT #### [address] [address] Potassium [Moles/Vol] 3.5 mmol/L Normal 3.5 - 5.3 [facility] Comment on above: Performed By: #### L ACT #### [address] [address] Sodium [Moles/Vol] 139 mmol/L Normal 136 - 145 [facility] Comment on above: Performed By: #### L ACT #### [address] [address] Urea nitrogen [Mass/Vol] 12 mg/dL Normal 6 - 23 [facility] Comment on above: Performed By: #### L ACT #### [address] [address] CBCon 11-20-2021 Erythrocyte distribution width (RBC) [Ratio] 17.1 % High 11.5 - 14.5 [facility] Comment on above: Performed By: #### V TB12 #### [address] [address] Hematocrit (Bld) [Volume fraction] 22.5 % Low 36.0 - 46.0 [facility] Comment on above: Performed By: #### V TB12 #### [address] [address] Hemoglobin (Bld) [Mass/Vol] 7.0 g/dL Low 12.0 - 16.0 [facility] Comment on above: Performed By: #### V TB12 #### [address] [address] MCHC (RBC) [Mass/Vol] 31.2 g/dL Low 32.0 - 36.0 [facility] Comment on above: Performed By: #### V TB12 #### [address] [address] MCV (RBC) [Entitic vol] 62 fL Low 80 - 100 [facility] Comment on above: Performed By: #### V TB12 #### [address] [address] Platelets (Bld) [#/Vol] 338 10*3/uL Normal 150 - 450 [facility] Comment on above: Performed By: #### V TB12 #### [address] [address] RBC 3.63 x10E12/L Low 4.00 - 5.20 [facility] Comment on above: Performed By: #### V TB12 #### [address] [address] WBC (Bld) [#/Vol] 4.7 10*3/uL Normal 4.4 - 11.3 [facility] Comment on above: Performed By: #### V TB12 #### [address] [address] CBC AND DIFFERENTIALon 11-20 Basophils (Bld) [#/Vol] 0.10 10*3/uL Normal 0.00 - 0.10 [facility] Comment on above: Performed By: #### M ORP2 #### [address] [address] Basophils/100 WBC (Bld) 1.6 % Normal 0.0 - 2.0 [facility] Comment on above: Performed By: #### M ORP2 #### [address] [address] Eosinophils (Bld) [#/Vol] 0.10 10*3/uL Normal 0.00 - 0.70 [facility] Comment on above: Performed By: #### M ORP2 #### [address] [address] Eosinophils/100 WBC (Bld) 1.4 % Normal 0.0 - 6.0 [facility] Comment on above: Performed By: #### M ORP2 #### [address] [address] Erythrocyte distribution width (RBC) [Ratio] 17.4 % High 11.5 - 14.5 [facility] Comment on above: Performed By: #### M ORP2 #### [address] [address] Hematocrit (Bld) [Volume fraction] 23.2 % Low 36.0 - 46.0 [facility] Comment on above: Performed By: #### M ORP2 #### [address] [address] Hemoglobin (Bld) [Mass/Vol] 7.0 g/dL Low 12.0 - 16.0 [facility] Comment on above: Performed By: #### M ORP2 #### [address] [address] Lymphocytes (Bld) [#/Vol] 1.40 10*3/uL Normal 1.20 - 4.80 [facility] Comment on above: Performed By: #### M ORP2 #### [address] [address] Lymphocytes/100 WBC (Bld) 30.1 % Normal 13.0 - 44.0 [facility] Comment on above: Performed By: #### M ORP2 #### [address] [address] MCHC (RBC) [Mass/Vol] 30.1 g/dL Low 32.0 - 36.0 [facility] Comment on above: Performed By: #### M ORP2 #### [address] [address] MCV (RBC) [Entitic vol] 62 fL Low 80 - 100 [facility] Comment on above: Performed By: #### M ORP2 #### [address] [address] Monocytes (Bld) [#/Vol] 0.30 10*3/uL Normal 0.10 - 1.00 [facility] Comment on above: Performed By: #### M ORP2 #### [address] [address] Monocytes/100 WBC (Bld) 6.7 % Normal 2.0 - 10.0 [facility] Comment on above: Performed By: #### M ORP2 #### [address] [address] Neutrophils (Bld) [#/Vol] 2.80 10*3/uL Normal 1.20 - 7.70 [facility] Comment on above: Result Comment: Perc ent differential counts (%) should be interpreted in the context of the absolute cell counts (cells/L). Performed By: #### M ORP2 #### [address] [address] Neutrophils/100 WBC (Bld) 60.2 % Normal 40.0 - 80.0 [facility] Comment on above: Performed By: #### M ORP2 #### [address] [address] NUCLEATED RBC 0.1 /100 WBC Normal [facility] Comment on above: Performed By: #### M ORP2 #### [address] [address] Platelets (Bld) [#/Vol] 334 10*3/uL Normal 150 - 450 [facility] Comment on above: Performed By: #### M ORP2 #### [address] [address] RBC 3.71 x10E12/L Low 4.00 - 5.20 [facility] Comment on above: Performed By: #### M ORP2 #### [address] [address] WBC (Bld) [#/Vol] 4.6 10*3/uL Normal 4.4 - 11.3 [facility] Comment on above: Performed By: #### M ORP2 #### [address] [address] CHEST 1 VIEWon 11-20-2021 CHEST 1 VIEW Patient Name: SHERIN SANDOVAL STUDY: CHEST 1 VIEW; 11/20/2021 3:05 pm INDICATION: Chest Pain . COMPARISON: 08/10/2018 ACCESSION NUMBER(S): [id number] ORDERING CLINICIAN: ISAEL BERMUDEZ FINDINGS: A single AP portable radiograph of the chest was obtained. Multiple cardiac monitoring leads are seen over the chest. No focal infiltrate, pleural effusion or pneumothorax is identified. The cardiac silhouette is within normal limits for size. IMPRESSION: No focal infiltrate or pneumothorax is identified. Electronically signed by: DION LBUE MD Normal [facility] Complete Blood Count + Diffe rentialon 11-20-2021 Basophils/100 WBC (Bld) 1.6 % 0.0 - 2.0 [facility] Work Phone: Erythrocyte distribution width (RBC) [Ratio] 17.4 % above high threshold See Below [facility] Work Phone: Comment on above: Reference Range: 11. 5 - 14.5 Hematocrit (Bld) [Volume fraction] 23.2 % below low threshold See Below [facility] Work Phone: [phone] Comment on above: Reference Range: 36. 0 - 46.0 Hemoglobin (Bld) [Mass/Vol] 7.0 g/dL below low threshold See Below [facility] Work Phone: [phone] Comment on above: Reference Range: 12. 0 - 16.0 Lymphocytes/100 WBC (Bld) 30.1 % See Below [facility] Work Phone: [phone] Comment on above: Reference Range: 13. 0 - 44.0 MCHC (RBC) [Mass/Vol] 30.1 g/dL below low threshold See Below [facility] Work Phone: [phone] Comment on above: Reference Range: 32. 0 - 36.0 MCV (RBC) [Entitic vol] 62 fL below low threshold 80 - 100 [facility] Work Phone: [phone] Monocytes/100 WBC (Bld) 6.7 % 2.0 - 10.0 [facility] Work Phone: [phone] Neutrophils/100 WBC (Bld) 60.2 % See Below [facility] Work Phone: [phone] Comment on above: Reference Range: 40. 0 - 80.0 Platelets (Bld) [#/Vol] 334 10*3/uL 150 - 450 [facility] Work Phone: [phone] RBC (Bld) [#/Vol] 3.71 {x10E12/L} below low threshold See Below [facility] Work Phone: [phone] Comment on above: Reference Range: 4.0 0 - 5.20 WBC (Bld) [#/Vol] 4.6 10*3/uL 4.4 - 11.3 [facility] Work Phone: [phone] Complete Blood Count + Differential 0.10 {x10E9/L} See Below [facility] Work Phone: [phone] Comment on above: Reference Range: 0.0 0 - 0.10 Reference Range: 0.0 0 - 0.70 Complete Blood Count + Differential 0.30 {x10E9/L} See Below [facility] Work Phone: Comment on above: Reference Range: 0.1 0 - 1.00 Complete Blood Count + Differential 1.40 {x10E9/L} See Below [facility] Work Phone: Comment on above: Reference Range: 1.2 0 - 4.80 Complete Blood Count + Differential 2.80 {x10E9/L} See Below [facility] Work Phone: Comment on above: Reference Range: 1.2 0 - 7.70 Percent differential counts (%) should be interpreted in the context of the absolute cell counts (cells/L). Complete Blood Count + Differential 1.4 % 0.0 - 6.0 [facility] Work Phone: [phone] Complete Blood Count + Differential 0.1 {/100_WBC} [facility] Work Phone: [phone] Laboratory - Blood bankon ABO group Nom (Bld) O [facility] Work Phone: [phone] Blood group antibody screen Ql Negative [facility] Work Phone: [phone] Rh immune globulin screen (Bld) [Interp] Negative [facility] Work Phone: [phone] Comment on above: Review your Rh Negat lillie female patient's potential need for Rh Immune Globulin (RhIg)administration. ABO group Nom (Bld) [facility] Work Phone: [phone] Rh immune globulin screen (Bld) [Interp] Negative [facility] Work Phone: [phone] Comment on above: Review your Rh Negat lillie female patient's potential need for Rh Immune Globulin (RhIg)administration. Laboratory - Chemistry and C hemistry - challengeon 11-20-2021 Anion gap [Moles/Vol] 12 mmol/L 10 - 20 [facility] Work Phone: [phone] Calcium [Mass/Vol] 8.7 mg/dL 8.6 - 10.3 [facility] Work Phone: Chloride [Moles/Vol] 109 mmol/L above high threshold 98 - 107 [facility] Work Phone: CO2 [Moles/Vol] 22 mmol/L 21 - 32 [facility] Work Phone: [phone] Creatinine [Mass/Vol] 0.61 mg/dL See Below [facility] Work Phone: [phone] Comment on above: Reference Range: 0.5 0 - 1.05 Glucose [Mass/Vol] 87 mg/dL 74 - 99 [facility] Work Phone: Potassium [Moles/Vol] 3.5 mmol/L 3.5 - 5.3 [facility] Work Phone: [phone] Sodium [Moles/Vol] 139 mmol/L 136 - 145 [facility] Work Phone: Urea nitrogen [Mass/Vol] 12 mg/dL 6 - 23 [facility] Work Phone: [phone] TSH Qn 4.42 m[IU]/L above high threshold See Below [facility] Work Phone: Comment on above: Reference Range: 0.4 4 - 3.98 TSH testing is performed using different testing methodology at [facility] than at other [facility]. Direct result comparisons should only be made within the same method. Laboratory - Hematology and Cell countson 11-20-2021 Erythrocyte distribution width (RBC) [Ratio] 17.1 % above high threshold See Below [facility] Work Phone: Comment on above: Reference Range: 11. 5 - 14.5 Hematocrit (Bld) [Volume fraction] 22.5 % below low threshold See Below [facility] Work Phone: Comment on above: Reference Range: 36. 0 - 46.0 Hemoglobin (Bld) [Mass/Vol] 7.0 g/dL below low threshold See Below [facility] Work Phone: Comment on above: Reference Range: 12. 0 - 16.0 MCHC (RBC) [Mass/Vol] 31.2 g/dL below low threshold See Below [facility] Work Phone: Comment on above: Reference Range: 32. 0 - 36.0 MCV (RBC) [Entitic vol] 62 fL below low threshold 80 - 100 [facility] Work Phone: Platelets (Bld) [#/Vol] 338 10*3/uL 150 - 450 [facility] Work Phone: RBC (Bld) [#/Vol] 3.63 {x10E12/L} below low threshold See Below [facility] Work Phone: Comment on above: Reference Range: 4.0 0 - 5.20 WBC (Bld) [#/Vol] 4.7 10*3/uL 4.4 - 11.3 [facility] Work Phone: No Panel Informationon 11-20 FEW [facility] Work [facility]: MILD [facility] Work Phone: SEE BELOW [facility] Work Phone: >[phone] >90 [facility] Work Phone: Comment on above: CALCULATIONS OF SHY MATED GFR ARE PERFORMED USING THE 2020 CKD-EPI STUDY REFIT EQUATION WITHOUT THE RACE VARIABLE FOR THE IDMS-TRACEABLE CREATININE METHODS.https://jasn.asnjournals.org/content/early/ N.7336431791 ORDER RECD [facility] Work Phone: Provider Note - ED v3on 11-10 Provider Note - ED v3 Provider Note: Chart Review: ED NOTES ED NOTES: Chief complaint: #1 anemia #2 chest pain #3 dizziness History of chief complaint: Patient with a history of iron deficiency as well as dysfunctional uterine bleeding presents with multiple symptoms including dizziness, fatigue, exertional dyspnea, and exertional chest pain. She is currently being seen by her private physician and gynecology for the above-mentioned issues. She had a recent endometrial biopsy for which she is awaiting the results. She had outpatient labs today which showed a hemoglobin of 7. This was discussed with her private physician who instructed her to come to the ER to be evaluated. The patient states that she has also been highly anxious about her symptoms. Apparently she has had dysfunctional uterine bleeding for years and she has known to have iron deficiency for many years as well. At the time of my examination she is not having any chest pain if she states that this is completely relieved while at rest. Allergies: Reviewed Home medications: Reviewed Medical history: Reviewed Surgical history: Reviewed Family history: Reviewed Social history: Reviewed Review of systems: I have reviewed constitutional HEENT cardiovascular pulmonary gastrointestinal genitourinary dermatologic psychiatric musculoskeletal neurologic and except where mentioned above all other systems are noted to be unremarkable. Nursing notes have been reviewed Physical examination: General appearance: Patient is sitting up in bed and appears well. Anxious. Not toxic in appearance. Not dyspneic or diaphoretic. I did witness the patient ambulate back from triage without difficulty. HEENT: Normocephalic and atraumatic. Conjunctive is pale. Neck: Trachea is midline. No JVD. Cardiac: Increased rate, regular rhythm. No murmurs. Lungs: Clear to auscultation bilaterally without wheezing Abdomen: Soft, obese, nontender, bowel sounds are normal. Musculoskeletal: No gross bony deformity identified Neurologic: Moving all 4 extremities independently Dermatologic: Mild generalized pallor. No jaundice. Psychiatric: Awake, alert, and oriented Clinical course: Twelve-lead EKG reveals a sinus tachycardia at 121 bpm, normal axis, normal R wave progression, no acute ischemic changes, no S1 Q3 T3 is identified. Medical decision making: Patient's tachycardia resolved on its own. I reassessed her after her laboratory panels and returned and she is resting comfortably, no longer anxious, with a heart rate in the 70s. Given the clinical picture I feel infusion of 1 unit of blood and follow-up with her established physicians to further pursue her dysfunctional uterine bleeding and iron deficiency as an outpatient is appropriate Assessment: #1 chronic anemia #2 history of iron deficiency #3 history of dysfunctional uterine bleeding Plan: Follow-up with her private physicians as described above and return at anytime if worse. HISTORY OF PRESENTING ILLNESS SHERIN is a 26 year old Female and was seen by me at 20-Nov-2021 14:29 for a chief complaint of chest pain (arrives with complaint of dizziness,chest pain and low hemiglobin,had labs done today)(1). Triage Information: Most recent Vital Sign Value Date Temp (F): 97.1 11-20-2021 14:41 Temp (C): 36.1 11-20-2021 14:41 Heart Rate (beats/min): 120 11-20-2021 14:41 Respirations (breaths/min): 22 11-20-2021 14:41 SpO2 (%): 100 11-20-2021 14:41 BP Systolic (mm Hg): 154 11-20-2021 14:41 BP Diastolic (mm Hg): 107 11-20-2021 14:41 PAST MEDICAL HISTORY ALLERGIES/INTOLERANCES: No Known Allergies HEALTH HISTORY: Medical History Name:Iron deficiency anemia Code:D50.9 Name:Dental caries Code:K02.9 Name:Anxiety Code:F41.9 Name:Panic attacks Code:F41.0 OUTPATIENT MEDICATIONS: Home Medications Review Status for Reconciliation: Complete Med Status: Patient Currently Takes Medications Drug Name: Sprintec 0.25 mg-35 mcg oral tablet Instructions: 1 tab(s) orally once a day Drug Name: FLUoxetine 20 mg oral tablet Instructions: 1 tab(s) orally once a day (in the evening) Drug Name: busPIRone 5 mg oral tablet Instructions: 2 tab(s) orally once a day (in the evening) Drug Name: levothyroxine 25 mcg (0.025 mg) oral tablet Instructions: 1 tab(s) orally once a day (in the morning) Drug Name: Iron 100 Plus oral tablet Instructions: 1 tab(s) orally 2 times a day Drug Name: Melatonin 10 mg oral tablet Instructions: 1-2 tab(s) orally once a day (at bedtime) SIGNIFICANT EVENTS: Clinical Events Description:Surgical Procedure Additional Notes:1. CYSTO L RPG L URETER W/CLAYTON L STENT; Description:Surgical Procedure Additional Notes:1. L ESWL, CYSTO L PRG L URETEROSCOPY;;2. null; Past Medical History Description:anxiety Description:situational anxiety Description:kidney stones Descrip (more content not included)... Normal [facility] RED CELL MORPHOLOGYon 2021 JANES CELLS FEW Normal [facility] Comment on above: Performed By: #### M ORP2 #### [place] [address] GIANT PLATELETS FEW Normal [facility] Comment on above: Performed By: #### M ORP2 #### [place] [id number] HYPOCHROMASIA MILD Normal [facility] Comment on above: Performed By: #### M ORP2 #### [place] [id number] RBC FRAGMENTS FEW Normal [facility] Comment on above: Performed By: #### M ORP2 #### [place] [address] RBC morphology finding Nom (Bld) SEE BELOW [facility] Comment on above: Performed By: #### M ORP2 #### [place] [id number] REQUEST-LEUKOREDUCED RED RACHEAL LSon 11-20-2021 REQUEST-LEUKOREDUCED RED CELLS ORDER RECD [facility] Comment on above: Performed By: #### M ORP2 #### [place] [id number] Radiologyon 11-20-2021 XR Chest Single view Normal [facility] Work Phone: Risk Screen - Adult Emergenc yon 11-20-2021 Risk Screen - Adult Emergency Preferred Language: Preferred Language: Preferred Language for Discussing Health Care (patient/designee)Mozambican Advanced Directives: Advance Directive/DNRno Advance Directive Information Givenpatient/family declined Family Violence Adult: Abuse Screen: Are you or have you been threatened or abused physically, emotionally, or sexually by anyoneno Learning Assessment (Patient): Learning Assessment (Patient): Patient is Able to be Assessed for Learningyes Factors Influencing Readiness to Learnanxiety Factors that Impact Ability to Learnnone Devices/Methods Used to Communicatenone Learning Preferenceswritten material; verbal instruction Cultural Considerationsnone Developmental Considerationsnone Oriental Orthodox Considerationsnone Learning Assessment (Other Learner): Learning Assessment (Other Learner): Other learner availableno Pressure Injury/TB/Substance: Pressure Injury: Do you have a coughno Smoking Statusnever smoker Alcohol Usedenies Drug Usedenies Admission Risk Screen: Significant IndicatorsComplete CAGE: CAGE: Is this an injured patient at a Trauma Center ([facility]/[place]/ [place]): no Electronic Signatures: Ailyn Mae (RN) (Signed 20-Nov-2021 14:47) Authored: Preferred Language, Advanced Directives, Family Violence Adult, Learning Assessment (Patient), Learning Assessment (Other Learner), Pressure Injury/TB/Substance, Pressure Injury, CAGE Last Updated: 20-Nov-2021 14:47 by Ailyn Mae (RN) Normal [facility] T4 - Free Thyroxine, Serumon 11-20-2021 Free T4 [Mass/Vol] 0.98 ng/dL See Below -[facility] Work Phone: Comment on above: Reference Range: 0.6 1 - 1.12 Thyroxine Free testing is performed using different testing methodology at [facility] than at other [facility]. Direct result comparisons should only be made within the same method.. Biotin can cause falsely elevated free T4 results. Patients taking a Biotin dose of up to 10 mg/day should refrain from taking Biotin for 24 hours before sample collection. Patient taking a Biotin dose of >10 mg/day should consult with their physician or the laboratory before the blood draw. THYROXINE,FREEon 11-20-2021 THYROXINE,FREE 0.98 ng/dL Normal 0.61 - 1.12 [facility] Comment on above: Result Comment: Thyr oxine Free testing is performed using different testing methodology at [facility] than at other [facility]. Direct result comparisons should only be made within the same method. . Biotin can cause falsely elevated free T4 results. Patients taking a Biotin dose of up to 10 mg/day should refrain from taking Biotin for 24 hours before sample collection. Patient taking a Biotin dose of >10 mg/day should consult with their physician or the laboratory before the blood draw. Performed By: #### C BC #### [facility] [address] [place] [address] TROPONIN I, HIGH SENSITIVITY on 11-20-2021 TROPONIN I, HIGH SENSITIVITY <3 Normal 0 - 13 [facility] Comment on above: Result Comment: . Less than 99th percentile of normal range cutoff- Female and children under 18 years old <14 ng/L; Male <21 ng/L: Negative Repeat testing should be performed if clinically indicated. . Female and children under 18 years old 14-50 ng/L; Male 21-50 ng/L: Consistent with possible cardiac damage and possible increased clinical risk. Serial measurements may help to assess extent of myocardial damage. . >50 ng/L: Consistent with cardiac damage, increased clinical risk and myocardial infarction. Serial measurements may help assess extent of myocardial damage. . NOTE: Children less than 1 year old may have higher baseline troponin levels and results should be interpreted in conjunction with the overall clinical context. . NOTE: Troponin I testing is performed using a different testing methodology at [facility] than at other [facility]. Direct result comparisons should only be made within the same method. Performed By: #### L ACT #### [facility] [address] [place] [address] Tropinin I.cardiac panel High sensitivity method <3 0 - 13 [facility] Work Phone: Comment on above: .Less than 99th perc entile of normal range cutoff-Female and children under 18 years old <14 ng/L; Male <21 ng/L: NegativeRepeat testing should be performed if clinically indicated. .Female and children under 18 years old 14-50 ng/L; Male 21-50 ng/L:Consistent with possible cardiac damage and possible increased clinical risk. Serial measurements may help to assess extent of myocardial damage. .>50 ng/L: Consistent with cardiac damage, increased clinical risk andmyocardial infarction. Serial measurements may help assess extent of myocardial damage. . NOTE: Children less than 1 year old may have higher baseline troponin levels and results should be interpreted in conjunction with the overall clinical context. .NOTE: Troponin I testing is performed using a different testing methodology at [facility] than at other [facility]. Direct result comparisons should only be made within the same method. TSH WITH REFLEX TO FREE T4 I F ABNORMALon 11-20-2021 TSH Qn 4.42 m[IU]/L High 0.44 - 3.98 [facility] Comment on above: Result Comment: TSH testing is performed using different testing methodology at [facility] than at other [facility]. Direct result comparisons should only be made within the same method. Performed By: #### C BC #### [address] [address] TYPE + SCREENon 11-20-2021 ABO TYPE O Normal [facility] Comment on above: Performed By: #### M ORP2 #### [address] [address] RH TYPE Negative Normal [facility] Comment on above: Result Comment: Revi ew your Rh Negative female patient's potential need for Rh Immune Globulin (RhIg)administration. Performed By: #### M ORP2 #### [address] [address] Triage - EDon 11-20-2021 Triage - ED Quick Triage: Are You no Have You Given In The Last 6 Weeksno Are You Currently Breastfeedingno The patient and/or guardian verbally acknowledges placement for services into the following (when Urgent Care Service hours are operating):emergency department Chart Review: ARRIVAL INFORMATION Mode of Arrival: private vehicle CHIEF COMPLAINT SHERIN SANDOVAL is a Female patient with a chief complaint of chest pain (arrives with complaint of dizziness,chest pain and low hemiglobin,had labs done today). Triage Date/Time: 20-Nov-2021 14:41 PATRICIA: 2 Pain Rating (0-10): 2 = Mild Vital Signs: Temperature: 97.1F ( 36.1C) taken oral Blood Pressure: 154/107 Mean: Heart Rate: 120 Respiratory Rate: 22 Pulse Oximetry: 100% Height: 5 feet 1.00 inches. 154.9 CM Weight: 273.3 pounds. Calculated 124.0 kg. Calculated BMI (kg/m2): 51.679 Calculated BSA (m2) 2.31 Tyrell Coma Scale: Best Eye Response: (E4) spontaneous Best Motor Response: (M6) obeys commands Best Verbal Response: (V5) oriented Mulliken Score: 15 Allergies: yes Last menstrual period: unknown Patient has homicidal thoughts: no Symptoms Are POSITIVE For: dyspnea Symptoms Are Negative For: anxiety, chills, diaphoresis, headache, loss of consciousness, nausea, numbness, pain, tingling and weakness Risk Screens Suicide Risk Screen In the Past Month: Have you wished you were or wished you could go to sleep and not wake up no In the Past Month: Have you had any actual thoughts of killing yourself no In Your Lifetime: Have you ever done anything, started to do anything, or prepared to do anything to end your life no Roper Fall Scale Screening Has the patient fallen before (or is the patient in the ED as a result of a fall) has not had a fall Does the patient have an impaired gait does not have impaired gait Is the patient cognitively impaired not cognitively impaired Interventions: Roper Fall Interventions: LOW INTERVENTIONS: *patient oriented to surroundings and call system, * patient/family falls education completed and documented, *patients fall status communicated during bedside handoff, *whiteboard updated, *mode of toileting discussed with patient, *bed in low position with brakes locked, *call light in reach, * non-skid footwear TRAVEL HISTORY Travel History Coronavirus Screening: no exposure or symptoms Travel Exposure History: NO travel to International locations in the past 30 days PAIN Pain Scale Used: IVON Pain Rating (0-10): 2 = Mild Past Medical History: Past Medical History Reviewedyes Electronic Signatures: Ailyn Mae (MIHIR) (Signed 20-Nov-2021 14:46) Entered: Risk Screens, Pain, Travel History, Chart Review, Scores, Past Medical History Authored: Quick Triage, Risk Screens, Pain, Travel History, Chart Review, Scores, Past Medical History Last Updated: 20-Nov-2021 14:46 by Ailyn Mae (MIHIR) [facility] IO HCG, Urine Test on 11-07-2021 HCG ( test) Ql (U) Negative [facility] [employer] Work Phone: [phone] No Panel Informationon 11-07 [facility] [employer] Work Phone: [facility] - Procedure Visiton 0 11-07-2021 [facility] [employer] - Procedure Visit Diagnoses/Problems Abnormal uterine bleeding (AUB) (626.9) (N93.9) Negative test (V72.41) (Z32.02) Orders Abnormal uterine bleeding (AUB) Follow-up visit in 1 month Outpatient Follow-up Status: Hold For - Scheduling Requested for: 07Nov2021 Surgical Pathology; Status:In Progress - Specimen/Data Collected,Retrospective Authorization; Done: 07Nov2021 Type : Biopsy Fixative : Formalin Site A : ENDOMETRIAL BIOPSY Negative test IO HCG, Urine Test; Status:Resulted - Requires Verification,Retrospectiv e Authorization; Done: [id number] 01:24PM Provider Impressions 1) abnormal uterine bleeding-reviewed that TSH is abnormal and given her difficulty with anemia and bleeding recommended treatment which she started. Reviewed ultrasound overall benign. Endometrial biopsy obtained given the length and duration of irregular bleeding. Risk factors. Patient tolerated the procedure well. Await final pathology and follow-up. Counseled to still in the first pack limit of irregular bleeding would be tolerated. We will follow-up in a couple cycles Chief Complaint PT IS HERE TODAY FOR U/S, BLOOD WORK RESULTS AND AN EMB. HAS NO NEW CONCERNS. History of Present [id number] presents for follow-up on AB. Patient has been taking the Sprintec and her bleeding just finally started to get down to minimal to light. Patient would like to review results. Patient is no other acute concerns. Patient is very anxious. Review of Systems Constitutional: No fevers, chills Eye:no vision changes Respiratory: no SOB Cardiovascular: no chest pain Gastrointestinal: No nausea, vomiting, diarrhea, constipation, abdominal pain Genitourinary:no dysuria Gynecology: See HPI Active Problems Problems Abdominal pain (789.00) (R10.9) Abnormal uterine bleeding (AUB) (626.9) (N93.9) Blood loss anemia (280.0) (D50.0) Contraception management (V25.9) (Z30.9) Depression with anxiety (300.4) (F41.8) Generalized anxiety disorder (300.02) (F41.1) Hypertension (401.9) (I10) Hypothyroidism (244.9) (E03.9) Inability to urinate (788.99) (R33.9) Iron deficiency anemia (280.9) (D50.9) Left flank pain (789.09) (R10.9) Left renal stone (592.0) (N20.0) Lightheadedness (780.4) (R42) Low back pain (724.2) (M54.50) Multinodular goiter (241.1) (E04.2) Nausea in adult (787.02) (R11.0) Negative test (V72.41) (Z32.02) Panic attacks (300.01) (F41.0) Risk for sexually transmitted disease (V69.2) (Z72.51) Seasonal allergies (477.9) (J30.2) Situational hypertension (796.2) (R03.0) Past Medical History Problems History of miscarriage (V13.29) (Z87.59) 2014 History of Menstruation AGE 11 Surgical History Problems History of Ankle surgery 2019 History of Lithotripsy 2021 History of Ureteral stent placement History of Lacey tooth extraction 2012 Family History Mother Family history of malignant neoplasm of breast (V16.3) (Z80.3) mom genetics negative Father Family history of throat cancer (V16.0) (Z80.0) Social History Problems Alcohol use (V49.89) (Z72.89) Does not have living will Never smoker No illicit drug use Sexually active Unemployed (V62.0) (Z56.0) Allergies Medication No Known Drug Allergies Recorded By: Siena Howell; 10/26/2019 3:38:05 PM Current Meds Medication NameInstruction busPIRone HCl - 5 MG Oral TabletTake 1 tablet in AM, and take 2 tablets at bedtime FLUoxetine HCl - 20 MG Oral CapsuleTAKE 1 CAPSULE Daily Iron TABS Levothyroxine Sodium 25 MCG Oral TabletTAKE 1 TABLET DAILY. Ondansetron 4 MG Oral Tablet DisintegratingTake 1 tablet twice daily Sprintec 28 0.25-35 MG-MCG Oral TabletTAKE 1 TABLET Daily Pt to skip every other placebo week. Vitals Vital Signs Recorded: 07Nov2021 01:27PM Khhexzlj201 Imodjukua82 Height5 ft 4 in Zvrcvr937 lb 14.56 oz BMI Cdvnypuwhz54.19 kg/m2 BSA Calculated2.24 Physical Exam General: None acute distress Eye: Intraocular movements are intact HEENT: Normocephalic Cardiovascular: Regular rate Respiratory: Respirations are nonlabored Gastrointestinal: Nondistended Musculoskeletal: Normal range of motion Neurologic: Alert and oriented x3 Psychiatric: Cooperative appropriate mood and affect. Results/Data IO HCG, Urine [id number] 01:24PMCherry Webb MEDLINE LOT: [id number] EXP: 06/12/2023 Test NameResultFlagReference IO Urine hCGNegative Ultrasound Pelvis Transabdominal With [id number] 08:48Cherry Murrell Test NameResultFlagReference Ultrasound Pelvis Transabdominal With Transvaginal(Report) FINAL REPORT Interpreted by: TATIANA PADILLA JOSEPH, MD 10/21/21 08:16 Patient Name: SHERIN SANDOVAL STUDY: US PELVIS TRANSABDOMINAL WITH TRANSVAGINAL; 10/20/2021 8:48 am INDICATION: aub N93.9: Abnormal uterine bleeding (AUB). COMPARISON: 12/11/2018 pelvic ultrasound ACCESSION NUMBER(S): [id number] ORDERING CLINICIAN: CHERRY WEBB TECHNIQUE: Mul (more content not included)... Normal [employer] [facility] Surgical Pathology Depar tmenton 11-07-2021 [facility] Surgical Pathology Department Name SHERIN SANDOVAL Pathologist: CORWIN SEGOVIA MD Date of Procedure: 11/07/2021 Date Received: 11/07/2021 Date Reported 11/09/2021 Submitting Physician: CHERRY WEBB DO [facility] Other External # FINAL DIAGNOSIS A. ENDOMETRIUM, BIOPSY: -- FRAGMENTS OF INACTIVE ENDOMETRIUM WITH FOCI OF STROMAL PSEUDODECIDUALIZATION, SUGGESTIVE OF PROGESTIN EFFECT, AND STROMAL AND GLANDULAR BREAKDOWN. -- FRAGMENTS OF BENIGN ENDOCERVICAL MUCOSA. Electronically Signed Out By CORWIN SEGOVIA MD/SXR By the signature on this report, the individual or group listed as making the Final Interpretation/Diagnosis certifies that they have reviewed this case. Diagnostic interpretation performed at [place] [address] Clinical History: Fixative (A): FORMALIN Clinical Diagnosis History: Abnormal uterine bleeding (AUB) - (N93.9) Specimens Submitted As: A: ENDOMETRIAL BIOPSY Gross Description: Received in formalin, labeled with the patient's name and hospital number and EMB, are multiple fragments of mucus, admixed with blood, aggregating to 2.7 x 2.3 x 0.9 cm. The specimen is submitted in toto in one cassette. The specimen may not survive processing. RCC rcc/11/08/2021 [facility] Department of Pathology [address] [place] [address] Normal [facility] Comment on above: Performed By: #### U [facility] #### [facility] Surgical Pathology Department [id number] [address] [facility] [address] No Panel Informationon 11-03 Several days - 1 [facility] Work Phone: Nearly every day - 3 [facility] Work Phone: Over half the days - 2 [facility] Work Phone: Moderate Anxiety [facility] Work Phone: Somewhat difficult -[facility] Work Phone: Comment on above: How difficult have t hose problems made it for you to do your work, take care of things at home, or get along with other people? 12 1 -[facility] Work Phone: Comment on above: Over the last two we eks, how often have you been bothered by the following problems? Feeling nervous, anxious, or on edge: Over half the days - 2Not being able to stop or control worrying: Over half the days - 2Worrying too much about different things: Several days - 1Trouble relaxing: Over half the days - 2Being so restless that it's hard to sit still: Nearly every day - 3Becoming easily annoyed or irritable: Several days - 1Feeling afraid as if something awful might happen: Several days - 1 Office Visit ([facility] Carmen sweeney)on 11-03-2021 Follow-up visit Diagnoses/Problems Abnormal uterine bleeding (AUB) (626.9) (N93.9) Hypothyroidism (244.9) (E03.9) Blood loss anemia (280.0) (D50.0) Nausea in adult (787.02) (R11.0) Generalized anxiety disorder (300.02) (F41.1) Iron deficiency anemia (280.9) (D50.9) Lightheadedness (780.4) (R42) Low back pain (724.2) (M54.50) Orders Abnormal uterine bleeding (AUB), Blood loss anemia Complete Blood Count; Status:Active; Requested for:[id number]; Generalized anxiety disorder Renew: FLUoxetine HCl - 20 MG Oral Capsule; TAKE 1 CAPSULE Daily Generalized anxiety disorder, Iron deficiency anemia, Lightheadedness, Nausea in adult Follow-up visit in 6 weeks Outpatient Follow-up Status: Hold For - Scheduling Requested for: 03Nov2021 Hypothyroidism TSH WITH REFLEX TO FREE T4 IF ABNORMAL; Status:Active; Requested for:[id number]; Nausea in adult Start: Ondansetron 4 MG Oral Tablet Disintegrating; Take 1 tablet twice daily Provider Impressions Anemia: Symptomatic; Likely from blood loss, continue taking iron supplements, Will recheck CBC in 1 month. Hypothyroidism: Continue on Levothyroxine 25 mcg daily, will recheck TSH in 1 month. CHARLINE: Will increase Fluoxetine to 20 mg daily. Nausea: Will start on Zofran as needed for nausea. Abnormal uterine bleeding: Management by Dr Webb. Follow up in 6 weeks. Chief Complaint 1 month follow-up - wants to discuss increasing the anxiety medication. History of Present Illness Sherin is a 26 yo female here today to follow up on anxiety and anemia. She reports she continues to have vaginal bleeding, however she does report slowing of bleeding. She has seen Dr Webb and is now on Sprintec 28. She has follow up with him on 11/07/21. He plans to perform biopsy. She was found to have elevated TSH and was started on Levothyroxine, she is taking as directed. Patient reports anxiety has worsened, she believes due to health condition, especially the unknown. Requests to increase the fluoxetine. She reports episodes of nausea with dizziness resolved by lying down/resting. She is also having SOB when going upstairs. She is having cramping with low back pain, currently managed by Tylenol or Midol. 'Scores and Scales' CHARLINE-7 03Nov2021 CHARLINE-7 Total Score12 Feeling nervous, anxious or on edgeOver half the days - 2 Not being able to stop or control worryingOver half the days - 2 Worrying too much about different thingsSeveral days - 1 Trouble relaxingOver half the days - 2 Being so restless that it's hard to sit stillNearly every day - 3 Becoming easily annoyed or irritableSeveral days - 1 Feeling afraid as if something awful might happenSeveral days - 1 Review of Systems Constitutional: feeling poorly and feeling tired. Cardiovascular: no chest pain, no intermittent leg claudication, no lower extremity edema, no palpitations and no syncope. Respiratory: shortness of breath during exertion, but as noted in HPI, no cough, no shortness of breath at rest and no wheezing. Gastrointestinal: nausea, but as noted in HPI, no abdominal pain, no blood in stools, no constipation, no diarrhea, no melena, no rectal pain and no vomiting. Genitourinary: unexplained vaginal bleeding, dysmenorrhea and menorrhagia. Musculoskeletal: back pain, but as noted in HPI. Neurological: no difficulty walking, no headache, no limb weakness, no numbness and no tingling. Psychiatric: anxiety, but as noted in HPI, no depression, no anhedonia and no substance use disorders. Active Problems Abdominal pain (789.00) (R10.9) Abnormal uterine bleeding (AUB) (626.9) (N93.9) Blood loss anemia (280.0) (D50.0) Contraception management (V25.9) (Z30.9) Depression with anxiety (300.4) (F41.8) Generalized anxiety disorder (300.02) (F41.1) Hypertension (401.9) (I10) Hypothyroidism (244.9) (E03.9) Inability to urinate (788.99) (R33.9) Iron deficiency anemia (280.9) (D50.9) Left flank pain (789.09) (R10.9) Left renal stone (592.0) (N20.0) Lightheadedness (780.4) (R42) Multinodular goiter (241.1) (E04.2) Panic attacks (300.01) (F41.0) Risk for sexually transmitted disease (V69.2) (Z72.51) Seasonal allergies (477.9) (J30.2) Situational hypertension (796.2) (R03.0) Past Medical History History of miscarriage (V13.29) (Z87.59) 2015 History of Menstruation AGE 11 Surgical History History of Ankle surgery 2020 History of Lithotripsy 2021 History of Ureteral stent placement History of Lacey tooth extraction 2012 Family History Family history of malignant neoplasm of breast (V16.3) (Z80.3) mom genetics negative Family history of throat cancer (V16.0) (Z80.0) Social History Alcohol use (V49.89) (Z72.89) Does not have living will Never smoker No illicit drug use Sexually active Unemployed (V62.0) (Z56.0) Allergies No Known Drug Allergies Recorded By: Siena Howell; 10/26/2019 3:38:05 PM Current Meds Medication NameInstructionReason Sprintec 28 0.25-35 MG-M (more content not included)... Normal Promuc Tobacco Screening.on 022 Tobacco use status CPHS b) No -[facility] Work Phone: No Panel Informationon 10-20 Please click on the link to view the study images Normal [facility] [address] [employer] Work Phone: [phone] Normal [facility] [employer] Work Phone: TSHon 10-20-2021 TSH Qn 5.10 m[IU]/L High 0.44 - 3.98 [facility] Comment on above: Result Comment: TSH testing is performed using different testing methodology at [facility] than at other [facility]. Direct result comparisons should only be made within the same method. Performed By: #### C #### [place] [address] TSH - Thyroid Stimulating Ho rmone, Serumon 10-20-2021 TSH Qn 5.10 m[IU]/L above high threshold See Below [facility] [employer] Work Phone: [phone] Comment on above: Reference Range: 0.4 4 - 3.98 TSH testing is performed using different testing methodology at [facility] than at other [facility]. Direct result comparisons should only be made within the same method. US PELVIS TRANSABDOMINAL WIT H TRANSVAGINALon 10-20-2021 US PELVIS TRANSABDOMINAL WITH TRANSVAGINAL Patient Name: SHERIN SANDOVAL STUDY: US PELVIS TRANSABDOMINAL WITH TRANSVAGINAL; 10/20/2021 8:48 am INDICATION: aub N93.9: Abnormal uterine bleeding (AUB). COMPARISON: 12/11/2018 pelvic ultrasound ACCESSION NUMBER(S): [id number] ORDERING CLINICIAN: CHERRY WEBB TECHNIQUE: Multiple multiplanar static evangelista scale, color and spectral waveform sonographic images of the pelvis were obtained. Transabdominal and endovaginal ultrasound was performed. FINDINGS: Limited evaluation secondary to patient body habitus and overlying bowel gas, within limitations: UTERUS: The uterus measures 8.7 x 4.5 x 5.2 cm. The uterine myometrium appears normal. ENDOMETRIUM: Endometrium measures 9 mm in thickness and slightly heterogeneous in appearance. RIGHT ADNEXA: The ovary measures 2.8 x 1.8 x 2.2 cm and demonstrates normal flow. Multiple functional follicular cysts are identified. LEFT ADNEXA: The ovary measures 2.4 x 1.2 x 2.0 cm and demonstrates normal flow. Multiple functional follicular cysts are identified. CUL DE SAC: No gross free fluid is seen in the pelvic cul-de-sac. IMPRESSION: 1. The endometrium measures 9 mm in thickness and is slightly heterogeneous in appearance, correlation with timing of patient's cycle is recommended. Otherwise unremarkable pelvic ultrasound within limitations. Electronically signed by: TATIANA PADILLA MD [facility] 10-13-2021 Erythrocyte distribution width (RBC) [Ratio] 16.7 % High 11.5 - 14.5 [facility] Comment on above: Performed By: #### T SH2 #### [address] [address] Hematocrit (Bld) [Volume fraction] 24.8 % Low 36.0 - 46.0 [facility] Comment on above: Performed By: #### T SH2 #### [address] [address] Hemoglobin (Bld) [Mass/Vol] 8.0 g/dL Low 12.0 - 16.0 [facility] Comment on above: Performed By: #### T SH2 #### [address] [address] MCHC (RBC) [Mass/Vol] 32.4 g/dL Normal 32.0 - 36.0 [facility] Comment on above: Performed By: #### T SH2 #### [address] [address] MCV (RBC) [Entitic vol] 68 fL Low 80 - 100 [facility] Comment on above: Performed By: #### T SH2 #### [address] [address] Platelets (Bld) [#/Vol] 461 10*3/uL High 150 - 450 [facility] Comment on above: Performed By: #### T SH2 #### [address] [address] RBC 3.64 x10E12/L Low 4.00 - 5.20 [facility] Comment on above: Performed By: #### T SH2 #### [address] [address] WBC (Bld) [#/Vol] 6.5 10*3/uL Normal 4.4 - 11.3 [facility] Comment on above: Performed By: #### T SH2 #### [address] [address] Laboratory - Hematology and Cell countson 10-13-2021 Erythrocyte distribution width (RBC) [Ratio] 16.7 % above high threshold See Below [facility] Work Phone: [phone] Comment on above: Reference Range: 11. 5 - 14.5 Hematocrit (Bld) [Volume fraction] 24.8 % below low threshold See Below [facility] Work Phone: [phone] Comment on above: Reference Range: 36. 0 - 46.0 Hemoglobin (Bld) [Mass/Vol] 8.0 g/dL below low threshold See Below [facility] Work Phone: [phone] Comment on above: Reference Range: 12. 0 - 16.0 MCHC (RBC) [Mass/Vol] 32.4 g/dL See Below [facility] Work Phone: [phone] Comment on above: Reference Range: 32. 0 - 36.0 MCV (RBC) [Entitic vol] 68 fL below low threshold 80 - 100 [facility] Work Phone: [phone] Platelets (Bld) [#/Vol] 461 10*3/uL above high threshold 150 - 450 [facility] Work Phone: RBC (Bld) [#/Vol] 3.64 {x10E12/L} below low threshold See Below [facility] Work Phone: Comment on above: Reference Range: 4.0 0 - 5.20 WBC (Bld) [#/Vol] 6.5 10*3/uL 4.4 - 11.3 [facility] Work Phone: CBC AND DIFFERENTIALon 10-03 Basophils (Bld) [#/Vol] 0.10 10*3/uL Normal 0.00 - 0.10 [facility] Comment on above: Performed By: #### T SH2 #### [address] [address] Basophils/100 WBC (Bld) 0.8 % Normal 0.0 - 2.0 [facility] Comment on above: Performed By: #### T SH2 #### [address] [address] Eosinophils (Bld) [#/Vol] 0.10 10*3/uL Normal 0.00 - 0.70 [facility] Comment on above: Performed By: #### T SH2 #### [address] [address] Eosinophils/100 WBC (Bld) 1.0 % Normal 0.0 - 6.0 [facility] Comment on above: Performed By: #### T SH2 #### [address] [address] Erythrocyte distribution width (RBC) [Ratio] 17.2 % High 11.5 - 14.5 [facility] Comment on above: Performed By: #### T SH2 #### [address] [address] Hematocrit (Bld) [Volume fraction] 27.3 % Low 36.0 - 46.0 [facility] Comment on above: Performed By: #### T SH2 #### [address] [address] Hemoglobin (Bld) [Mass/Vol] 8.7 g/dL Low 12.0 - 16.0 [facility] Comment on above: Performed By: #### T SH2 #### [address] [address] Lymphocytes (Bld) [#/Vol] 1.80 10*3/uL Normal 1.20 - 4.80 [facility] Comment on above: Performed By: #### T SH2 #### [address] [address] Lymphocytes/100 WBC (Bld) 19.8 % Normal 13.0 - 44.0 [facility] Comment on above: Performed By: #### T SH2 #### [address] [address] MCHC (RBC) [Mass/Vol] 31.7 g/dL Low 32.0 - 36.0 [facility] Comment on above: Performed By: #### T SH2 #### [address] [address] MCV (RBC) [Entitic vol] 70 fL Low 80 - 100 [facility] Comment on above: Performed By: #### T SH2 #### [address] [address] Monocytes (Bld) [#/Vol] 0.60 10*3/uL Normal 0.10 - 1.00 [facility] Comment on above: Performed By: #### T SH2 #### [address] [address] Monocytes/100 WBC (Bld) 7.2 % Normal 2.0 - 10.0 [facility] Comment on above: Performed By: #### T SH2 #### [address] [address] Neutrophils (Bld) [#/Vol] 6.30 10*3/uL Normal 1.20 - 7.70 [facility] Comment on above: Result Comment: Perc ent differential counts (%) should be interpreted in the context of the absolute cell counts (cells/L). Performed By: #### T SH2 #### [address] [address] Neutrophils/100 WBC (Bld) 71.2 % Normal 40.0 - 80.0 [facility] Comment on above: Performed By: #### T SH2 #### [address] [address] Platelets (Bld) [#/Vol] 392 10*3/uL Normal 150 - 450 [facility] Comment on above: Performed By: #### T SH2 #### [address] [address] RBC 3.90 x10E12/L Low 4.00 - 5.20 [facility] Comment on above: Performed By: #### T SH2 #### [address] [address] WBC (Bld) [#/Vol] 8.9 10*3/uL Normal 4.4 - 11.3 [facility] Comment on above: Performed By: #### T SH2 #### [address] [address] Complete Blood Count + Diffe liliatialon 10-03-2021 Basophils/100 WBC (Bld) 0.8 % 0.0 - 2.0 [facility] Work Phone: [phone] Erythrocyte distribution width (RBC) [Ratio] 17.2 % above high threshold See Below [facility] Work Phone: [phone] Comment on above: Reference Range: 11. 5 - 14.5 Hematocrit (Bld) [Volume fraction] 27.3 % below low threshold See Below [facility] Work Phone: [phone] Comment on above: Reference Range: 36. 0 - 46.0 Hemoglobin (Bld) [Mass/Vol] 8.7 g/dL below low threshold See Below [facility] Work Phone: [phone] Comment on above: Reference Range: 12. 0 - 16.0 Lymphocytes/100 WBC (Bld) 19.8 % See Below [facility] Work Phone: Comment on above: Reference Range: 13. 0 - 44.0 MCHC (RBC) [Mass/Vol] 31.7 g/dL below low threshold See Below [facility] Work Phone: [phone] Comment on above: Reference Range: 32. 0 - 36.0 MCV (RBC) [Entitic vol] 70 fL below low threshold 80 - 100 [facility] Work Phone: [phone] Monocytes/100 WBC (Bld) 7.2 % 2.0 - 10.0 [facility] Work Phone: [phone] Neutrophils/100 WBC (Bld) 71.2 % See Below [facility] Work Phone: [phone] Comment on above: Reference Range: 40. 0 - 80.0 Platelets (Bld) [#/Vol] 392 10*3/uL 150 - 450 [facility] Work Phone: [phone] RBC (Bld) [#/Vol] 3.90 {x10E12/L} below low threshold See Below [facility] Work Phone: [phone] Comment on above: Reference Range: 4.0 0 - 5.20 WBC (Bld) [#/Vol] 8.9 10*3/uL 4.4 - 11.3 [facility] Work Phone: [phone] Complete Blood Count + Differential 0.10 {x10E9/L} See Below [facility] Work Phone: [phone] Comment on above: Reference Range: 0.0 0 - 0.10 Reference Range: 0.0 0 - 0.70 Complete Blood Count + Differential 0.60 {x10E9/L} See Below [facility] Work Phone: [phone] Comment on above: Reference Range: 0.1 0 - 1.00 Complete Blood Count + Differential 1.80 {x10E9/L} See Below [facility] Work Phone: [phone] Comment on above: Reference Range: 1.2 0 - 4.80 Complete Blood Count + Differential 6.30 {x10E9/L} See Below [facility] Work Phone: [phone] Comment on above: Reference Range: 1.2 0 - 7.70 Percent differential counts (%) should be interpreted in the context of the absolute cell counts (cells/L). Complete Blood Count + Differential 1.0 % 0.0 - 6.0 [facility] Work Phone: [phone] FERRITINon 10-03-2021 FERRITIN 17 ug/L Normal 8 - 150 [facility] Comment on above: Performed By: #### V TB12 #### [address] [address] Ferritin, Serumon 10-03-2021 Ferritin [Mass/Vol] 17 ug/L 8 - 150 [facility] Work Phone: [phone] IRON + TIBCon 10-03-2021 % SATURATION 6 % Low 25 - 45 [facility] Comment on above: Performed By: #### T SH2 #### [address] [address] Iron [Mass/Vol] 22 ug/dL Low 35 - 150 [facility] Comment on above: Performed By: #### T SH2 #### [address] [address] TIBC 392 ug/dL Normal 240 - 445 [facility] Comment on above: Performed By: #### T SH2 #### [address] [address] Laboratory - Chemistry and C hemistry - challengeon 10-03-2021 Iron [Mass/Vol] 22 ug/dL below low threshold 35 - 150 [facility] Work Phone: [phone] Iron binding capacity [Mass/Vol] 392 ug/dL 240 - 445 [facility] Work Phone: [phone] No Panel Informationon 10-03 6 % below low threshold 25 - 45 [facility] Work Phone: [phone] MILD [facility] Work Phone: [phone] SEE BELOW [facility] Work Phone: [phone] Office Visit (Family Medicin e)on 10-03-2021 Follow-up visit Diagnoses/Problems Iron deficiency anemia (280.9) (D50.9) Irregular menstrual cycle (626.4) (N92.6) Blood loss anemia (280.0) (D50.0) Depression with anxiety (300.4) (F41.8) * Orders Blood loss anemia Complete Blood Count + Differential; Status:Resulted - Requires Verification; Done: 03Oct2021 02:57PM Ferritin, Serum; Status:Resulted - Requires Verification; Done: 03Oct2021 02:57PM Iron + TIBC, Serum; Status:Resulted - Requires Verification; Done: 03Oct2021 02:57PM Blood loss anemia, Generalized anxiety disorder Follow-up visit in 1 month Outpatient Follow-up Status: Complete Done: 03Oct2021 Generalized anxiety disorder Start: busPIRone HCl - 5 MG Oral Tablet; Take 1 tablet in AM, and take 2 tablets at bedtime Start: FLUoxetine HCl - 10 MG Oral Capsule; TAKE 1 CAPSULE Daily Irregular menstrual cycle Gynecology Referral Evaluation and Treatment Evaluate AND Treat Status: Complete Done: 03Oct2021 Iron deficiency anemia (280.9) (D50.9) Irregular menstrual cycle (626.4) (N92.6) Provider Impressions Blood loss/iron deficient anemia: Will recheck CBC, if HGB below 8 will need blood transfusion. Continue taking iron supplement twice a day. Will refer to [facility] for evaluation. Depression with anxiety: Mild, will restart on Prozac 10 mg daily and start on Buspar 5 mg in AM and 10 mg at HS. Will see patient for follow up in 1 month. Chief Complaint Wants to discuss getting back on her old anxiety medication - Fluoxetine. Pt also went to the ER after her last appointment like advised and she did have another kidney stone. Did want to ask if you were able to start her on control before she gets in to see a [facility] doctor for excessive bleeding. Adult Risk Screening Depression/Suicide Screening: During the past 2 weeks, the patient felt down, depressed or hopeless. During the past 2 weeks, the patient has not felt little interest or pleasure in doing things. PHQ-9 Depression Scale: 1. Little interest or pleasure in doing things - several days 2. Feeling down, depressed or hopeless - more than half the days 3. Trouble falling asleep or sleeping too much - not at all 4. Feeling tired or having little energy - nearly every day 5. Poor appetite or overeating - not at all 6. Feeling bad about self or failure or letting others down - not at all 8. Moving / speaking slowly or fidgety / restless - not at all 9. Thought would be better off or hurting self - not at all Total Score: 11/06 History of Present Illness Sherin is a 26 yo female here today for follow up. Last appointment was shortened due to emergent care needed for acute kidney stone. Patient would like to discuss her Prozac dosage and starting control. She reports she has been bleeding everyday for over 1 year. She reports the amount changes, however, heavy bleeding with clots over last 3-4 days. She states most days she has to wear tampon and 2 pads with breakthrough bleeding. She has had iron infusion in the past. Has not seen or established with [facility]. On 08/31/21 in ER her hemoglobin was at 8.7, does not appear it was addressed. Patient states no one told me or did anything She states she does take iron supplement twice a day. She would like to start back on prozac, she has had increase in depression, she states mostly due to health and constant bleeding. Denies any SI or HI. Review of Systems Constitutional: no chills, no fever and no night sweats. Cardiovascular: no chest pain, no intermittent leg claudication, no lower extremity edema, no palpitations and no syncope. Respiratory: no cough, no shortness of breath during exertion, no shortness of breath at rest and no wheezing. Gastrointestinal: no abdominal pain, no blood in stools, no constipation, no diarrhea, no melena, no nausea, no rectal pain and no vomiting. Genitourinary: unexplained vaginal bleeding, dysmenorrhea, menorrhagia and sexual dysfunction. Musculoskeletal: no arthralgias, no back pain and no myalgias. Integumentary: no new skin lesions and no rashes. Neurological: no difficulty walking, no headache, no limb weakness, no numbness and no tingling. Psychiatric: depression, but no anxiety, no homicidal thoughts and no suicidal ideations. * Active Problems Abdominal pain (789.00) (R10.9) Contraception management (V25.9) (Z30.9) Generalized anxiety disorder (300.02) (F41.1) Hypertension (401.9) (I10) Inability to urinate (788.99) (R33.9) Left flank pain (789.09) (R10.9) Left renal stone (592.0) (N20.0) Lightheadedness (780.4) (R42) Multinodular goiter (241.1) (E04.2) Panic attacks (300.01) (F41.0) Risk for sexually transmitted disease (V69.2) (Z72.51) Seasonal allergies (477.9) (J30.2) Situational hypertension (796.2) (R03.0) Iron deficiency anemia (280.9) (D50.9) Surgical History History of Lithotripsy History of Ureteral stent placement History of Lacey tooth extraction Family History No pertinent family history (more content not included)... Normal [employer] RED CELL MORPHOLOGYon 2021 HYPOCHROMASIA MILD Normal [facility] Comment on above: Performed By: #### M ORP2 #### [place] [address] RBC morphology finding Nom (Bld) SEE BELOW Normal [facility] Comment on above: Performed By: #### M ORP2 #### [place] [address] Tobacco Screening.on 022 Tobacco use status CPHS b) No -[facility] Work Phone: CORONAVIRUS 2018, SCREEN ASY MPTOMATICon 10-02-2021 SARS-CoV-2 (COVID-19) RNA ELEUTERIO+probe Ql (Unsp spec) Canceled Normal [facility] Comment on above: Order Comment: TEST CORONAVIRUS 2019, SCREEN ASYMPTOMATIC WAS CANCELLED, 10/02/2021 12:58TEST NOT COMPLETED. Result Comment: . This assay is designed to detect the N, ORF1ab and/or S genes of SARS-CoV-2 via nucleic acid amplification. A Negative (NOT DETECTED) result does not preclude 2019-nCoV infection since the adequacy of sample collection and/or low viral burden may result in presence of viral nucleic acids below the clinical sensitivity of this test method. Negative (NOT DETECTED) result should not be used as the sole basis for treatment or other patient management decisions. Rather negative results should be combined with clinical observations, patient history, and epidemiological information to make patient management decisions. Fact sheet for providers: https://www.fda.gov/media/155043/download Fact sheet for patients: https://www.fda.gov/media/649491/download This test has received FDA Emergency Use Authorization (EUA) and has been verified by [facility] ([facility]). This test is only authorized for the duration of time that circumstances exist to justify the authorization of the emergency use of in vitro diagnostic tests for the detection of SARS-CoV-2 virus and/or diagnosis of COVID-19 infection under section 564(b)(1) of the Act, 21 U.S.C. 360bbb-3(b)(1), unless the authorization is terminated or revoked sooner. [facility] is certified under CLIA-88 as qualified to perform high complexity testing. Testing is performed in the [facility] laboratories located at [address] [place] [address]. Performed By: #### T [facility] #### [place] [address] CT KIDNEY STONEon 09-08-2021 CT KIDNEY STONE EXAMINATION: CT KIDNEY STONE HISTORY: ORDERING SYSTEM PROVIDED HISTORY: flank pain, TECHNOLOGIST PROVIDED HISTORY: Illness/Other Reason for exam: left flank pain Encounter Type: Initial Additional signs and symptoms: recent lithotripsy, passed 3 stones, now pain with dysuria and hematuria ORDERING SYSTEM PROVIDED DIAGNOSIS CODES: COMPARISON: None. TECHNIQUE: Dose reduction techniques were achieved by using automated exposure control and/or adjustment of mA and/or kV according to patient size and/or use of iterative reconstruction technique. CT of the abdomen and pelvis without contrast. Coronal and sagittal reformats are included. CONTRAST: None. FINDINGS: The included lung bases are clear. Evaluation of the soft tissue organs and vasculature within the abdomen and pelvis is limited by non contrast technique. Liver, spleen, pancreas, adrenal glands are unremarkable. Gallbladder is present. There is a 4 mm calculus at the lower pole left kidney. A 4 mm calculus at the distal left ureter with mild left hydroureter, hydronephrosis, perinephric,periureteral edema. No right-sided calculus or hydronephrosis. Urinary bladder is not distended. Abdominal aorta is normal in course and caliber. No evidence of bowel obstruction. No free air or free fluid. Normal appendix. No enlarged lymph nodes. Uterus is present. No suspicious osseous lesion. IMPRESSION: 1. A 4 mm obstructing distal left ureteral calculus with mild left hydroureter, hydronephrosis, perinephric, and periureteral edema. 2. Another 4 mm nonobstructing intrarenal calculus at the lower pole left kidney. [employer]ESS[employer]ak Workstation ID: [id number] Dictated by: LAUREN DAO on SatSep 08, 2021 2:14:33 PM EDT Transcribed by: EJ SOLIS on SatSep 08, 2021 2:20:39 PM EDT Finalized by: LAUREN DAO on SatSep 08, 2021 5:10:53 PM EDT [facility] Comment on above: Order Comment: Injur y/Trauma or Illness?:Illness/Other How long have you had these symptoms (acute/chronic)?:Acute Reason for exam?:left flank pain Type of Exam?:Initial Additional signs and symptoms?:recent lithotripsy, passed 3 stones, now pain with dysuria and hematuria Office Visit (Family Carmen sweeney)on 09-08-2021 Follow-up visit Diagnoses/Problems Left flank pain (789.09) (R10.9) Inability to urinate (788.99) (R33.9) Provider Impressions Left flank pain with Inability to urinate: Recommend patient go directly to ER, she is in visible pain. Unable to provide appropriate care and testing in outpatient office setting. She is here with aunt who will transport her to ER. Patient is able to transfer in/ot of chair/ independently. Chief Complaint ER follow-up - Kidney issues - Kidney stones. History of Present Illness Sherin is a 26 yo female here today for hospital follow up she has been in/out of ER/hospital since 08/25/2021. She has been treated in ER on 4 occasions and admitted twice, all incidence with left flank pain. CT scan on 08/30/21 shows mild hydronephrosis with 4.8 mm stone to left kidney. Patient in room out of chair on floor on knees with emesis bag to face, she is moaning and reports sever pain to left flank area. She is able to answer all question and reports last urination at 0700, has not eaten today, has drank 2-3 12 oz water bottles today, and left flank pain posterior and stabbing 10/10 on pain scale. She had a stent that was placed and then removed, she underwent lithotripsy and has scheduled appt with Dr Varela (uronology) on 09/11/21. Review of Systems Constitutional: feeling poorly, but as noted in HPI. Cardiovascular: no chest pain. Respiratory: no shortness of breath during exertion and no shortness of breath at rest. Gastrointestinal: nausea, but as noted in HPI. Psychiatric: no anxiety and no depression. Endocrine: changes in appetite. Active Problems Abdominal pain (789.00) (R10.9) Contraception management (V25.9) (Z30.9) Generalized anxiety disorder (300.02) (F41.1) Hypertension (401.9) (I10) Iron deficiency anemia (280.9) (D50.9) Left renal stone (592.0) (N20.0) Lightheadedness (780.4) (R42) Multinodular goiter (241.1) (E04.2) Panic attacks (300.01) (F41.0) Risk for sexually transmitted disease (V69.2) (Z72.51) Seasonal allergies (477.9) (J30.2) Situational hypertension (796.2) (R03.0) Surgical History History of Lithotripsy History of Ureteral stent placement History of Lacey tooth extraction Family History No pertinent family history Family history of throat cancer (V16.0) (Z80.0) Social History Alcohol use (V49.89) (Z72.89) Does not have living will Never smoker No illicit drug use Sexually active Unemployed (V62.0) (Z56.0) Allergies No Known Drug Allergies Recorded By: Siena Howell; 10/26/2019 3:38:05 PM Current Meds Medication NameInstructionReason Iron TABSHealth Maintenance Melatonin 10 MG Oral TabletHealth Maintenance Vitals Vital Signs Recorded: [id number] 12:50PM Heart Rate88 Haxakyxc872 Tikrkrsqi53 Height5 ft 4 in Tobacco Useb) No Physical Exam Constitutional: General appearance: Abnormal. acutely ill. moaning in acute pain. Psychiatric: Mood and affect: Abnormal. Mood and Affect: anxious, concerned and in pain. physical exam was limited due to acute pain/distress. 'Scores and Scales' Signatures Electronically signed by : Trenton Valverde APRN-[employer]; Sep 08 2021 1:27PM EST (Author) Normal [facility] Tobacco Screening.on 022 Tobacco use status [facility] b) No [facility] Work Phone: Order Reconciliationon 09-01 Order Reconciliation Page 1 Discharge Reconciliation Document Reconciliation Type: Discharge requested on behalf of Mayo Oropeza (Physician) done by Mayo Oropeza) Discharge - Reconciliation: 01-Sep-2021 12:03 by: Mayo Oropeza) Home Medications EnteredHOME MEDICATIONS AT DISCHARGE DateReconciliation Comment/ Additional Information Bactrim DS 800 mg-160 mg oral tablet 1 tab(s) orally 2 times a day 30-Aug-2021 17:31 Discontinued; Discontinue from ORM fluconazole 200 mg oral tablet 1 tab(s) orally once a day 30-Aug-2021 17:37 fluconazole 200 mg oral tablet 1 tab(s) orally once a day 30-Aug-2021 17:37 fluconazole 200 mg oral tablet is continued as fluconazole 200 mg oral tablet ibuprofen 200 mg oral tablet 2 tab(s) orally every 6 hours, As Needed - for pain 30-Aug-2021 11:34 ibuprofen 200 mg oral tablet 2 tab(s) orally every 6 hours, As Needed - for pain 30-Aug-2021 11:34 ibuprofen 200 mg oral tablet is continued as ibuprofen 200 mg oral tablet ondansetron 4 mg oral tablet, disintegrating 1 tab(s) orally 3 times a day 29-Aug-2021 11:27 ondansetron 4 mg oral tablet, disintegrating 1 tab(s) orally 3 times a day 29-Aug-2021 11:27 ondansetron 4 mg oral tablet, disintegrating is continued as ondansetron 4 mg oral tablet, disintegrating oxycodone-acetaminophen 5 mg-325 mg oral tablet 1 tab(s) orally every 8 hours 29-Aug-2021 11:28 oxycodone-acetaminophen 5 mg-325 mg oral tablet 1 tab(s) orally every 8 hours 29-Aug-2021 11:28 oxycodone-acetaminophen 5 mg-325 mg oral tablet is continued as oxycodone-acetaminophen 5 mg-325 mg oral tablet traMADol 50 mg oral tablet 1 tab(s) orally every 6 hours, As needed, Pain - Mod (4-6) 27-Aug-2021 07:54 traMADol 50 mg oral tablet 1 tab(s) orally every 6 hours, As needed, Pain - Mod (4-6) 27-Aug-2021 07:54 traMADol 50 mg oral tablet is continued as traMADol 50 mg oral tablet Current OrdersDateHOME MEDICATIONS AT DISCHARGE DateReconciliation Comment/ Additional Information HYDROmorphone Injectable (DILAUDID)DOSE = 0.5 mg IntraVenous Push Every 5 Minutes, PRN Pain - Mod (4-6) (PACU)Clinician Notes: Justa-operative order ONLYMax total of 4 mg regardless of dose. 31-Aug-2021 09:29 HYDROmorphone Injectable is not required Lactated Ringers Infusion IV Bag Volume = 1,000 mL Run at: 100 mL/hr IntraVenous Clinician Notes: Justa-operative order ONLY 31-Aug-2021 09:29 Lactated Ringers Infusion is not required oxyCODONE Immediate Release Tablet (OXYIR, ROXICODONE)DOSE = 5 mg Oral Every 4 Hours, PRN Pain - Mild (1-3) (PACU) when able to take OralClinician Notes: Justa-operative order ONLY 31-Aug-2021 09:29 oxyCODONE Immediate Release is not required Home Medications Added During Discharge Reconciliation Call Physician For: excessive bleeding (slow general oozing that completely soaks dressing or fresh bright red bleeding) or bleeding that will not stop. Apply pressure to the area and elevate. Call Physician For: inability to urinate every 8-12 hours and your bladder becomes too full or painful. Call Physician For: persistant nausea and/or vomiting Over 24 hours Call Physician For: signs and sypmtoms of infection Increased redness or swelling at incision site, increased pain/tenderness at surgical site, increased temperature greater than 100 degress, increasing and/or progressive drainage from surgical site, and/or unusual odor from surgical site. Cipro 500 mg oral tablet 1 tab(s) orally 2 times a day Diet Regular Discharge Discharge Diagnosis< N20.0 Kidney stone on left side Discharge Provider, Mayo Oropeza Discharge Disposition : .Home Condition at Discharge: Satisfactory Discharge Communication Instructions for Nursing Only: Remove IV prior to discharge from hospital. Do not remove any midline, if present, without an order from the provider. Discharge Instructions - PHR After your discharge from the hospital, two Summary of Care Documents will be available online in your Personal Health Record (PHR). 1.Consolidated-Clinical Document Architecture (C-CDA) Patient Discharge Summary This document is a summary of your hospital stay to be kept for your reference.2.C-CDA Visit Summary This document is a summary of your hospital stay to be shared with your follow-up providers (doctor, insurance underwriter, physical therapist, etc.). Follow Up with Dr. Chopra in 3 Months In clinic Pyridium 100 mg oral tablet 1 tab(s) orally 3 times a day All Active Home Medications at time of Discharge Reconciliation: 01-Sep-2021 12:03 Call Physician For: excessive bleeding (slow general oozing that completely soaks dressing or fresh bright red bleeding) or bleeding that will not stop. Apply pressure to the area and elevate. Call Physician For: inability to urinate every 8-12 hours and your bladder becomes too full or painful. Call Physician For: persistant nausea and/or vomiting Over 24 hours Call Physician For: signs and sypmtoms (more content not included)... Normal [facility] CBCon 08-31-2021 Erythrocyte distribution width (RBC) [Ratio] 15.4 % High 11.5 - 14.5 [facility] Comment on above: Performed By: #### C BC ####[address] [address] Hematocrit (Bld) [Volume fraction] 27.3 % Low 36.0 - 46.0 [facility] Comment on above: Performed By: #### C BC ####[address] [address] Hemoglobin (Bld) [Mass/Vol] 8.7 g/dL Low 12.0 - 16.0 [facility] Comment on above: Performed By: #### C BC ####[address] [address] MCHC (RBC) [Mass/Vol] 31.9 g/dL Low 32.0 - 36.0 [facility] Comment on above: Performed By: #### C BC ####[address] [address] MCV (RBC) [Entitic vol] 70 fL Low 80 - 100 [facility] Comment on above: Performed By: #### C BC ####[address] [address] Platelets (Bld) [#/Vol] 345 10*3/uL Normal 150 - 450 [facility] Comment on above: Performed By: #### C BC ####[address] [address] RBC 3.88 x10E12/L Low 4.00 - 5.20 [facility] Comment on above: Performed By: #### C BC ####[address] [address] WBC (Bld) [#/Vol] 5.5 10*3/uL Normal 4.4 - 11.3 [facility] Comment on above: Performed By: #### C BC ####[address] [address] Clinical Note - Pharmacy v2- Medication Educationon 08-31-2021 Clinical Note - Pharmacy v2-Medication Education Clinical Note - Pharmacy v2: Discharge Meds: Document TopicDischarge Med Counseling Time Ycaundzn40-25 minutes Prescription Manager Sql Medications Home Medications Review Status for Reconciliation: Complete Med Status: Patient Currently Takes Medications Drug Name: traMADol 50 mg oral tablet Instructions: 1 tab(s) orally every 6 hours, As needed, Pain - Mod (4-6) Drug Name: ondansetron 4 mg oral tablet, disintegrating Instructions: 1 tab(s) orally 3 times a day Drug Name: oxycodone-acetaminophen 5 mg-325 mg oral tablet Instructions: 1 tab(s) orally every 8 hours Drug Name: ibuprofen 200 mg oral tablet Instructions: 2 tab(s) orally every 6 hours, As Needed - for pain Drug Name: Bactrim DS 800 mg-160 mg oral tablet Instructions: 1 tab(s) orally 2 times a day Drug Name: fluconazole 200 mg oral tablet Instructions: 1 tab(s) orally once a day Medications Deliveredbactrim DS & fluconazole Medications Delivered Topatient Delivery Date/[id number] 08:50 Education: Document TopicMedication Education Medication- all medications including Bactrim DS & Fluconazole Is This Intervention Medication Reconciliation Relatedno Time Ybirfawe72-46 minutes TopicADR counseling; alternative drug; alternative method of administration; dosage, frequency, storage; medication indication; medication information about proper dosage, indications, possible ADRs; medication interactions; missed dose explanation; patient counseling-medications Learnerpatient Barriersnone Methodverbal; written Outcome2=meets goals/outcomes Additional NotesI met with and discussed all home-going medications with the patient. We discussed the following brand/generic name, reason for use, last dose taken, when to take next dose and any potential side effects. Written literature was provided for each medication and sent home with the patient. Bactrim DS is an antibiotic medication that helps your body fight infections. Take with or without food and a full glass of water. You may experience loose stools [diarrhea], rash or itchiness and sun sensitivity. You should finish full course of therapy. Fluconazole is an antifugal. Nausea and headache can occur. Let your health care provider know if you experience loose stools or diarrhea. Patient had opportunity to ask questions. Left contact information for patient follow up if needed. Allergy: Allergies Summary No Known Allergies Electronic Signatures: Jerson Hannah ([facility]) (Signed 31-Aug-2021 09:38) Authored: Discharge Meds, Education, Allergy Last Updated: 31-Aug-2021 09:38 by Jerson Hannah ([facility]) [facility] - Hematology and Cell countson 08-31-2021 Erythrocyte distribution width (RBC) [Ratio] 15.4 % above high threshold See Below ON-Ltivmnl-W [employer] Work Phone: Comment on above: Reference Range: 11. 5 - 14.5 Hematocrit (Bld) [Volume fraction] 27.3 % below low threshold See Below NB-Adcoqgb-W [employer] Work Phone: Comment on above: Reference Range: 36. 0 - 46.0 Hemoglobin (Bld) [Mass/Vol] 8.7 g/dL below low threshold See Below FR-Qalmwgp-J [employer] Work Phone: Comment on above: Reference Range: 12. 0 - 16.0 MCHC (RBC) [Mass/Vol] 31.9 g/dL below low threshold See Below AJ-Pdupoii-K [employer] Work Phone: Comment on above: Reference Range: 32. 0 - 36.0 MCV (RBC) [Entitic vol] 70 fL below low threshold 80 - 100 SV[employer] Work Phone: [phone] Platelets (Bld) [#/Vol] 345 10*3/uL 150 - 450 [employer] Phone: RBC (Bld) [#/Vol] 3.88 {x10E12/L} below low threshold See Below [employer] Work Phone: Comment on above: Reference Range: 4.0 0 - 5.20 WBC (Bld) [#/Vol] 5.5 10*3/uL 4.4 - 11.3 [employer] Work Phone: Office Visit (Urology)on Follow-up visit Diagnoses/Problems Assessed Left renal stone (592.0) (N20.0) Patient Discussion/Summary Left ureteral stone status post left ureteroscopy, left double-J stent insertion left retrograde 26-year-old very pleasant female presenting to with a 5 mm proximal left ureteral stone status post ureteroscopy [stent insertion left retrograde pyelogram which could not identify the stone. Patient had severe pain that prompted her to proceed to the emergency department [address] scan revealing good position of her stent with no evidence of ureteral stone. We discussed operative management including keeping the stent proceeding with ESWL for her left kidney stone. Patient wants to absolutely remove her stent today. Sure that the stone might still be present and not showing on her CAT scans. She verbalized understanding of the risk and wants to proceed with stent removal today. Plan Schedule patient for left ESWL Stent removal today Proceed to the emergency department case of fever chills severe pain Chief Complaint kidney stone History of Present Illnessleft renal stone. Pt was seen in ED for left flank pain. mild nausea. She did have a left ureteroscopy w/ stent 08/25/21. she has been seen in ED 2x since discharge with C/O pain. she is scheduled for left ESWL 09/01/21. increased urgency and frequency. some gross hematuria. dysuria. she states she does have hx of kidney stones. Patient reports severe pain 10/10, pressure-like in nature, radiating from the left flank area to the left abdominal area upper and lower quadrant, no fever no chills but patient has severe nausea. She reported that this pain was intermittent, did not subside ygeh-hfm-lwlpvxd medication, it prompted her to proceed to the emergency department 2 times where she had to CT scan revealing good position of the stent no evidence of ureteral stone. We discussed the option of management including ESWL and removal of stent next week versus removing her stent today proceed with ESWL tomorrow. Discussed risk, benefit, potential complication, adverse events of each. Patient wants to proceed and remove her left double-J stent today. I explained to her that there is always a risk that the stone was not visible on CT scan and might still be blocking her kidney and creating flank pain. She understands the risk and wants to proceed still with stent removal. Review of Systems [id number] FormStart IisfUclfXmxwt7Icfch Constitutional: No fever, No chills Eye: negative Respiratory: No shortness of breath, No cough. Cardiovascular: No chest pain Gastrointestinal: No nausea Genitourinary: Negative except as documented in history of present illness. Hematology/Lymphatics: Patient denies being on blood thinners.. Endocrine: Negative. Immunologic: Not immunocompromised. Musculoskeletal: negative Integumentary: Negative. Neurologic: Alert and oriented X4. Psychiatric: Negative. Active Problems Problems Abdominal pain (789.00) (R10.9) Contraception management (V25.9) (Z30.9) Generalized anxiety disorder (300.02) (F41.1) Hypertension (401.9) (I10) Iron deficiency anemia (280.9) (D50.9) Left renal stone (592.0) (N20.0) Lightheadedness (780.4) (R42) Multinodular goiter (241.1) (E04.2) Panic attacks (300.01) (F41.0) Risk for sexually transmitted disease (V69.2) (Z72.51) Seasonal allergies (477.9) (J30.2) Situational hypertension (796.2) (R03.0) Surgical History Problems History of Lacey tooth extraction Family History Mother No pertinent family history Father Family history of throat cancer (V16.0) (Z80.0) Social History Problems Alcohol use (V49.89) (Z72.89) Does not have living will Never smoker No illicit drug use Sexually active Unemployed (V62.0) (Z56.0) Allergies Medication No Known Drug Allergies Recorded By: Siena Howell; 10/26/2019 3:38:05 PM Current Meds Medication NameInstruction Etonogestrel-Ethinyl Estradiol 0.12-0.015 MG/24HR Vaginal RingINSERT 1 RING VAGINALLY FOR 3 WEEKS THEN 1 WEEK OFF. FLUoxetine HCl - 10 MG Oral CapsuleTAKE 1 CAPSULE Daily FLUoxetine HCl - 40 MG Oral CapsuleTAKE 1 CAPSULE Daily Iron TABS Meclizine HCl - 12.5 MG Oral Tablet1-2 tablets every 6-8 hours as needed for dizzyness Melatonin 10 MG Oral Tablet Vitals Vital Signs Recorded: 31Aug2021 09:26AM Heart Rate82 Qgefhzpd223 Ehuletywc16 Height5 ft 4 in Emflzp719 lb 4 oz BMI Jtuffyszeh01.68 kg/m2 BSA Calculated2.31 Tobacco Useb) No PHQ-2 #1. Over the last 2 weeks have you felt down, depressed or hopeless? (If yes, answer PHQ-9 below)No Physical Exam General: Well developed, well nourished, alert and cooperative, appears in no acute distress Eyes: Non-injected conjunctiva, sclera clear, no proptosis Cardiac: Extremities are warm and well perfused. No edema, cyanosis or pallor. Lungs: Breathing is easy, non-labored. Speaking in clear and complete sentences. Normal diap (more content not included)... Normal [facility] Follow-up visit Diagnoses/Problems Assessed Left renal stone (592.0) (N20.0) Never smoker Orders SocHx: Never smoker Tobacco Use Screening; Status:Complete; Done: [id number] Perform:Not Applicable;Ordered; For:SocHx: Never smoker; Ordered By:Jaci Schumacher; Patient Discussion/Summary Left ureteral stone status post left ureteroscopy, left double-J stent insertion left retrograde 26-year-old very pleasant female presenting to with a 5 mm proximal left ureteral stone status post ureteroscopy [stent insertion left retrograde pyelogram which could not identify the stone. Patient had severe pain that prompted her to proceed to the emergency department [address] scan revealing good position of her stent with no evidence of ureteral stone. We discussed operative management including keeping the stent proceeding with ESWL for her left kidney stone. Patient wants to absolutely remove her stent today. Sure that the stone might still be present and not showing on her CAT scans. She verbalized understanding of the risk and wants to proceed with stent removal today. Plan Schedule patient for left ESWL Stent removal today Proceed to the emergency department case of fever chills severe pain Chief Complaint Left Renal Stone History of Present Illnessleft renal stone. Pt was seen in ED for left flank pain. mild nausea. She did have a left ureteroscopy w/ stent 08/25/21. she has been seen in ED 2x since discharge with C/O pain. she is scheduled for left ESWL 09/01/21. increased urgency and frequency. some gross hematuria. dysuria. she states she does have hx of kidney stones. Patient reports severe pain 10/10, pressure-like in nature, radiating from the left flank area to the left abdominal area upper and lower quadrant, no fever no chills but patient has severe nausea. She reported that this pain was intermittent, did not subside zaoo-zma-agqllip medication, it prompted her to proceed to the emergency department 2 times where she had to CT scan revealing good position of the stent no evidence of ureteral stone. We discussed the option of management including ESWL and removal of stent next week versus removing her stent today proceed with ESWL tomorrow. Discussed risk, benefit, potential complication, adverse events of each. Patient wants to proceed and remove her left double-J stent today. I explained to her that there is always a risk that the stone was not visible on CT scan and might still be blocking her kidney and creating flank pain. She understands the risk and wants to proceed still with stent removal. Review of Systems [id number] FormStart DtnvGpagAthsu1Rlmvy Constitutional: No fever, No chills Eye: negative Respiratory: No shortness of breath, No cough. Cardiovascular: No chest pain Gastrointestinal: No nausea Genitourinary: Negative except as documented in history of present illness. Hematology/Lymphatics: Patient denies being on blood thinners.. Endocrine: Negative. Immunologic: Not immunocompromised. Musculoskeletal: negative Integumentary: Negative. Neurologic: Alert and oriented X4. Psychiatric: Negative. Active Problems Problems Abdominal pain (789.00) (R10.9) Contraception management (V25.9) (Z30.9) Generalized anxiety disorder (300.02) (F41.1) Hypertension (401.9) (I10) Iron deficiency anemia (280.9) (D50.9) Left renal stone (592.0) (N20.0) Lightheadedness (780.4) (R42) Multinodular goiter (241.1) (E04.2) Panic attacks (300.01) (F41.0) Risk for sexually transmitted disease (V69.2) (Z72.51) Seasonal allergies (477.9) (J30.2) Situational hypertension (796.2) (R03.0) Surgical History Problems History of Lacey tooth extraction Family History Mother No pertinent family history Father Family history of throat cancer (V16.0) (Z80.0) Social History Problems Alcohol use (V49.89) (Z72.89) Does not have living will Never smoker No illicit drug use Sexually active Unemployed (V62.0) (Z56.0) Allergies Medication No Known Drug Allergies Recorded By: Siena Howell; 10/26/2019 3:38:05 PM Current Meds Medication NameInstruction Etonogestrel-Ethinyl Estradiol 0.12-0.015 MG/24HR Vaginal RingINSERT 1 RING VAGINALLY FOR 3 WEEKS THEN 1 WEEK OFF. FLUoxetine HCl - 10 MG Oral CapsuleTAKE 1 CAPSULE Daily FLUoxetine HCl - 40 MG Oral CapsuleTAKE 1 CAPSULE Daily Iron TABS Meclizine HCl - 12.5 MG Oral Tablet1-2 tablets every 6-8 hours as needed for dizzyness Melatonin 10 MG Oral Tablet Vitals Vital Signs Recorded: 31Aug2021 09:26AM Heart Rate82 Gqzbvaif287 Jtsathrgu27 Height5 ft 4 in Pkpumn271 lb 4 oz BMI Emofysucvh65.68 kg/m2 BSA Calculated2.31 Tobacco Useb) No PHQ-2 #1. Over the last 2 weeks have you felt down, depressed or hopeless? (If yes, answer PHQ-9 below)No Physical Exam General: Well developed, well nourished, alert and cooperative, appears in no acute distress Eyes: Non-injected conjunctiva, scle (more content not included)... [facility] - ED v3on 08-12 Provider Note - ED v3 Provider Note: Chart Review: HISTORY OF PRESENTING ILLNESS SHERIN is a 26 year old Female and was seen by me at 31-Aug-2021 10:40 for a chief complaint of flank pain (Left flank pain, non-radiating. Pt dc'd from [facility] 330 at 0845 today + 10 pain + guarding sts has 3 stents placed with recent multiple admissions)(1). Triage Information: Most recent Vital Sign Value Date Temp (F): 98.1 08-31-2021 10:37 Temp (C): 36.7 08-31-2021 10:37 Heart Rate (beats/min): 86 08-31-2021 10:37 Respirations (breaths/min): 20 08-31-2021 10:37 SpO2 (%): 100 08-31-2021 10:37 BP Systolic (mm Hg): 145 08-31-2021 10:37 BP Diastolic (mm Hg): 78 08-31-2021 10:37 PAST MEDICAL HISTORY ALLERGIES/INTOLERANCES: No Known Allergies HEALTH HISTORY: Medical History Name:Iron deficiency anemia Code:D50.9 Name:Dental caries Code:K02.9 Name:Anxiety Code:F41.9 Name:Panic attacks Code:F41.0 OUTPATIENT MEDICATIONS: Home Medications Review Status for Reconciliation: N/A Med Status: Patient Currently Takes Medications Drug Name: traMADol 50 mg oral tablet Instructions: 1 tab(s) orally every 6 hours, As needed, Pain - Mod (4-6) Drug Name: ondansetron 4 mg oral tablet, disintegrating Instructions: 1 tab(s) orally 3 times a day Drug Name: oxycodone-acetaminophen 5 mg-325 mg oral tablet Instructions: 1 tab(s) orally every 8 hours Drug Name: ibuprofen 200 mg oral tablet Instructions: 2 tab(s) orally every 6 hours, As Needed - for pain Drug Name: Bactrim DS 800 mg-160 mg oral tablet Instructions: 1 tab(s) orally 2 times a day Drug Name: fluconazole 200 mg oral tablet Instructions: 1 tab(s) orally once a day SIGNIFICANT EVENTS: Clinical Events Description:Surgical Procedure Additional Notes:1. CYSTO L RPG L URETER W/CLAYTON L STENT; Past Medical History Description:anxiety Description:situational anxiety Description:kidney stones Description:thyroid nodule Past Surgical History Description:TONSILLECTOMY CRITICAL CARE VITAL SIGNS: T PRBP SpO2O2(LPM) %FiO2 Method 31-Aug-2021 12:30:[id number]/74 100 room air, no respiratory support 31-Aug-2021 12:00:00-4998360/88 99 room air, no respiratory support 31-Aug-2021 11:35:00-2964911/95 100 room air, no respiratory support 31-Aug-2021 11:15:00-8667643/90 99 room air, no respiratory support 31-Aug-2021 10:37:00-36.66773119/78 100 room air, no respiratory support MDM MDM/ED COURSE: PMH: Reviewed PSH: Reviewed Social History: Reviewed. Allergies reviewed. HPI: This is a 26 year old female with history of kidney stones, iron deficiency anemia, dental caries, anxiety/panic attacks who presents to the ED today with complaints of 10/10 left flank pain. This pain started a week ago. She has been admitted to the hospital twice and this is her second separate ED visit for the same complaint. She had stent placed during her first admission. She was most recently admitted yesterday for pain control. She was discharged home this morning at 8:30 AM. She went to Dr. Chopra's office and had the stent removed. She states she got chcf home and the pain returned, 10 out of 10 and she came directly to the emergency department. She has nausea, no vomiting. States the pain is unchanged from her previous pain. REVIEW OF SYSTEMS: All other systems reviewed and negative except as listed in HPI. PHYSICAL EXAM: GENERAL: Vitals noted, obvious distress, writhing around the bed, in child's pose position on the bed. Alert and oriented x 3. Non-toxic. CARDIAC: Regular rate, rhythm. No murmurs rubs or gallops. No JVD. PULMONARY: Lungs clear and equal bilaterally. No wheezes rales or rhonchi. No respiratory distress. ABDOMEN: Soft, nondistended, and diffusely tender, worse on the left flank. No peritoneal signs. Bowel sounds are present and normoactive in all 4 quadrants. EXTREMITIES: No peripheral edema. SKIN: No rash. Warm, dry, and intact. NEURO: No focal neurologic deficits. ED COURSE: This patient was seen and examined by myself and discussed with ED attending Dr. Villeda. Immediately after assessing her, I sent a message to Dr Chopra, urology. Discussed with him that she's back here with 10/10 pain. She had labs drawn this AM. He did not want her re-admitted. He wanted her to get pain medication and be seen in the office tomorrow for her already scheduled ESWL. She's given 0.5mg dilaudid IV and zofran 4mg IV. She has percocet at home from her previous ED visit 08/29. When I told her of his recommendations, she was not happy with this. She states the percocet was not doing anything and that's why she returned yesterday 08/30. She states that she was told she could come right back if she needed to. I discussed with nursing broiler supervisor Lisa hospitalist Dr Walls. On reassessment, she continues to moan but is now sitting back in the bed instead of (more content not included)... Normal [facility] Tobacco Screening.on 022 Adult depression screening assessment No MP-Urology- A [employer] Work Phone: Tobacco use status [facility] b) No MJ-Vazolrt-E [employer] Work Phone: Triage - EDon 08-31-2021 Triage - ED Quick Triage: Are You no Are You Currently Breastfeedingno The patient and/or guardian verbally acknowledges placement for services into the following (when Urgent Care Service hours are operating):emergency department Chart Review: ARRIVAL INFORMATION Mode of Arrival: private vehicle CHIEF COMPLAINT SHERIN SANDOVAL is a Female patient with a chief complaint of flank pain (Left flank pain, non-radiating. Pt dc'd from [facility] at 0845 today + 02/19 pain + guarding sts has 3 stents placed with recent multiple admissions). Triage Date/Time: 31-Aug-2021 10:38 PATRICIA: 3 Pain Rating (0-10): 10 = Severe Vital Signs: Temperature: 98.1F ( 36.7C) taken temporal Blood Pressure: 145/78 Mean: Heart Rate: 86 Respiratory Rate: 20 Pulse Oximetry: 100% on room air, no respiratory support. Height: 5 feet 4.00 inches. 162.5 CM Weight: 285.4 pounds. Calculated 129.5 kg. Calculated BMI (kg/m2): 49.041 Calculated BSA (m2) 2.42 Tyrell Coma Scale: Best Eye Response: (E4) spontaneous Best Motor Response: (M6) obeys commands Best Verbal Response: (V5) oriented Mulliken Score: 15 Allergies: no Last menstrual period: unknown Patient has homicidal thoughts: no Risk Screens Suicide Risk Screen In the Past Month: Have you wished you were or wished you could go to sleep and not wake up no In the Past Month: Have you had any actual thoughts of killing yourself no In Your Lifetime: Have you ever done anything, started to do anything, or prepared to do anything to end your life no Roper Fall Scale Screening Has the patient fallen before (or is the patient in the ED as a result of a fall) has not had a fall Does the patient have an impaired gait does not have impaired gait Is the patient cognitively impaired not cognitively impaired Interventions: Roper Fall Interventions: LOW INTERVENTIONS: *patient oriented to surroundings and call system, * patient/family falls education completed and documented, *patients fall status communicated during bedside handoff, *whiteboard updated, *mode of toileting discussed with patient, *bed in low position with brakes locked, *call light in reach, * non-skid footwear TRAVEL HISTORY Travel History Coronavirus Screening: no exposure or symptoms Travel Exposure History: NO travel to International locations in the past 30 days PAIN Pain Scale Used: IVON Pain Rating (0-10): 10 = Severe Past Medical History: Past Medical History Reviewedyes Electronic Signatures: Lilia Capps (N MGR) (Signed 31-Aug-2021 10:42) Entered: Risk Screens, Pain, Travel History, Chart Review, Scores, Past Medical History Authored: Quick Triage, Risk Screens, Pain, Travel History, Chart Review, Scores, Past Medical History Last Updated: 31-Aug-2021 10:42 by Lilia Capps (N MGR) [facility] Admission Risk Screen - Adul ton 08-30-2021 Admission Risk Screen - Adult Allergies: Allergies: No Known Allergies: Patient Verification: New W ID Band Applied in my Departmentno Type of ID Patient is WearingW wristband, but not applied here Patient Transferred from Other Facility ([facility], [facility],etc)no Patient Identity Verified Bypatient ID Band FULL Name, include Middle, spelling matches patient's ID used for verificationyes ID Band Matches Patient ID used for Verficationyes ID Band MRN Matches EMR MRNyes Visitor Restriction: Coronavirus Visitor Restriction: Reasonable restrictions to in-person visitors will be observed due to current coronavirus pandemic. Travel History: COVID-19 Screening Completedno exposure or symptoms(1) Travel or Exposure Past 30 DaysNO travel to International locations in the past 30 days Ebola AlertFor Ebola-like Symptoms: Isolate Patient and Notify Provider/Contractor Buyer For Contact: Notify Provider/Contractor Buyer Advance Directive: Advance Directive/DNRno (2) Advance Directive Information Givenpatient/family declined Roper Fall Screen: History of falling (immediate or previous)no (0) Secondary Diagnosisno (0) Intravenous Therapy/ Heparin/Saline Lockyes (20) Gait/Transferringnormal/b edrest/wheelchair (0) Ambulatory Aidsnone/bedrest/nurse assist (0) Mental Statusoriented to own ability (0) Score: Low risk (<25). Moderate risk (25-44). High risk (>44).20 Roper InterventionsLOW INTERVENTIONS: *patient oriented to surroundings and call system, * patient/family falls education completed and documented, *patients fall status communicated during bedside handoff, *whiteboard updated, *mode of toileting discussed with patient, *bed in low position with brakes locked, *call light in reach, * non-skid footwear Family Violence Screen: Are you or have you been threatened or abused physically, emotionally, or sexually by anyoneno Do you feel UNSAFE going back to the place where you are livingno Clinical assessment: Are there any apparent signs of injuries/behaviors that could be related to abuse/neglectno Social Service Consult for abuse/neglect needed this visitno Functional Screen: Functional Screen: In the recent/past 2-4 weeks, patient or family have noticedno issues that require a speech/language consult at this time AM-PAC- Basic Mobility/Daily Activity: Patient baseline bedboundno Turning from your back to your side while in a flat bed without using bedrailsnone Moving from lying on your back to sitting on the side of a flat bed without using bedrailsnone Moving to and from bed to chair (including a wheelchair)none Standing up from a chair using your arms (e.g. wheelchair or bedside chair) none To walk in hospital roomnone Climbing 3-5 steps with railingnone Basic Mobility - Total Score24 Putting on and taking off regular lower body clothingnone Bathing (including washing, rinsing, drying)none Putting on and taking off regular upper body clothingnone Toileting, which includes using toilet, bedpan or urinalnone Taking care of personal grooming such as brushing teethnone Eating Mealsnone Daily Activity - Total Score24 Learning Assessment (Patient): Patient is Able to be Assessed for Learningyes Factors Influencing Readiness to Learnacuteness of illness; pain Factors that Impact Ability to Learnnone Devices/Methods Used to Communicatenone Learning Preferencesindividual instruction Cultural Considerationsnone Developmental Considerationsnone Oriental Orthodox Considerationsnone Learning Assessment (Other Learner): Other learner availableno Depression Screen: During the past month, have you often been bothered by feeling down, depressed or hopelessno During the past month, have you often had little interest or pleasure in doing thingsno Have you had any thoughts of harming anyone elseno (3) [place] Suicide: Risk Screen Not Applicable/Able to Answerable to be screened In the Past Month: Have you wished you were or could go to sleep and not wake upno(3) In the Past Month: Have you had any actual thoughts of killing yourself no(3) Lifetime: Have you ever done, started to do, or prepared to do anything to end your lifeno [place] Suicide Risknegative Adult Nutrition Screen: Have you recently lost weight without tryingno Have you been eating poorly because of a decreased appetiteno Malnutrition Screening Tool Score0 Malnutrition Screening Tool RiskMST = 0 or 1 Not at risk. Eating well with little or no weight loss Nutrition Consult needed this visitno Can Patient Participate in Room Serviceyes Patient requires Paper Dishes/Plastic Utensilsno Pain Screen: Pain Scalenumerical 0-10 Pain Scale Educationteaching provided Current Pain Level5 = Moderate Acceptable Pain Level5 = Moderate Expression of Pain (nonverbal)none Chronic Painno Spiritual Screen: Are there any cultural, spiritual, r (more content not included)... Normal [facility] CBC AND DIFFERENTIALon 08-30 Basophils (Bld) [#/Vol] 0.10 10*3/uL Normal 0.00 - 0.10 [facility] Comment on above: Performed By: #### C BCDF ####[address] [address] Basophils/100 WBC (Bld) 0.8 % Normal 0.0 - 2.0 [facility] Comment on above: Performed By: #### C BCDF ####[address] [address] Eosinophils (Bld) [#/Vol] 0.20 10*3/uL Normal 0.00 - 0.70 [facility] Comment on above: Performed By: #### C BCDF ####[address] [address] Eosinophils/100 WBC (Bld) 2.8 % Normal 0.0 - 6.0 [facility] Comment on above: Performed By: #### C BCDF ####[address] [address] Erythrocyte distribution width (RBC) [Ratio] 15.4 % High 11.5 - 14.5 [facility] Comment on above: Performed By: #### C BCDF ####[address] [address] Hematocrit (Bld) [Volume fraction] 30.7 % Low 36.0 - 46.0 [facility] Comment on above: Performed By: #### C BCDF ####[address] [address] Hemoglobin (Bld) [Mass/Vol] 9.6 g/dL Low 12.0 - 16.0 [facility] Comment on above: Performed By: #### C BCDF ####[address] [address] Lymphocytes (Bld) [#/Vol] 1.80 10*3/uL Normal 1.20 - 4.80 [facility] Comment on above: Performed By: #### C BCDF ####[address] [address] Lymphocytes/100 WBC (Bld) 23.1 % Normal 13.0 - 44.0 [facility] Comment on above: Performed By: #### C BCDF ####[address] [address] MCHC (RBC) [Mass/Vol] 31.2 g/dL Low 32.0 - 36.0 [facility] Comment on above: Performed By: #### C BCDF ####[address] [address] MCV (RBC) [Entitic vol] 71 fL Low 80 - 100 [facility] Comment on above: Performed By: #### C BCDF ####[address] [address] Monocytes (Bld) [#/Vol] 0.50 10*3/uL Normal 0.10 - 1.00 [facility] Comment on above: Performed By: #### C BCDF ####[address] [address] Monocytes/100 WBC (Bld) 5.9 % Normal 2.0 - 10.0 [facility] Comment on above: Performed By: #### C BCDF ####[address] [address] Neutrophils (Bld) [#/Vol] 5.20 10*3/uL Normal 1.20 - 7.70 [facility] Comment on above: Result Comment: Perc ent differential counts (%) should be interpreted in the context of the absolute cell counts (cells/L). Performed By: #### C BCDF ####[address] [address] Neutrophils/100 WBC (Bld) 67.4 % Normal 40.0 - 80.0 [facility] Comment on above: Performed By: #### C BCDF ####[address] [address] Platelets (Bld) [#/Vol] 441 10*3/uL Normal 150 - 450 [facility] Comment on above: Performed By: #### C BCDF ####[address] [address] RBC 4.34 x10E12/L Normal 4.00 - 5.20 [facility] Comment on above: Performed By: #### C BCDF ####[address] [address] WBC (Bld) [#/Vol] 7.8 10*3/uL Normal 4.4 - 11.3 [facility] Comment on above: Performed By: #### C BCDF ####[place] [id number] COMPREHENSIVE PANELon 2021 Albumin [Mass/Vol] 3.9 g/dL Normal 3.4 - 5.0 [facility] Comment on above: Performed By: #### C MP ####[address] [address] ALP [Catalytic activity/Vol] 60 U/L Normal 33 - 110 [facility] Comment on above: Performed By: #### C MP ####[address] [address] ALT [Catalytic activity/Vol] 13 U/L Normal 7 - 45 [facility] Comment on above: Result Comment: Mackenzie ents treated with Sulfasalazine may generate falsely decreased results for ALT. Performed By: #### C MP ####[address] [address] Anion gap [Moles/Vol] 11 mmol/L Normal 10 - 20 [facility] Comment on above: Performed By: #### C MP ####[address] [address] AST [Catalytic activity/Vol] 12 U/L Normal 9 - 39 [facility] Comment on above: Performed By: #### C MP ####[address] [address] Bilirubin [Mass/Vol] 0.3 mg/dL Normal 0.0 - 1.[address] [facility] Comment on above: Performed By: #### C MP ####[address] [address] Calcium [Mass/Vol] 8.9 mg/dL Normal 8.6 - 10.3 [facility] Comment on above: Performed By: #### C MP ####[address] [address] Chloride [Moles/Vol] 105 mmol/L Normal 98 - [address] [facility] Comment on above: Performed By: #### C MP ####[address] [address] Creatinine [Mass/Vol] 0.78 mg/dL Normal 0.50 - 1.05 [facility] Comment on above: Performed By: #### C MP ####[address] [address] eGFR FEMALE >90 Normal >90 [facility] Comment on above: Result Comment: CALC ULATIONS OF ESTIMATED GFR ARE PERFORMED USING THE 2020 CKD-EPI STUDY REFIT EQUATION WITHOUT THE RACE VARIABLE FOR THE IDMS-TRACEABLE CREATININE METHODS. https://jasn.asnjournals.org/content/early//ASN.769310 5709 Performed By: #### C MP ####[address] [address] Glucose [Mass/Vol] 95 mg/dL Normal 74 - 99 [facility] Comment on above: Performed By: #### C MP ####[address] [address] HCO3 (Bld) [Moles/Vol] 28 mmol/L Normal 21 - 32 [facility] Comment on above: Performed By: #### C MP ####[address] [address] Potassium [Moles/Vol] 4.4 mmol/L Normal 3.5 - 5.3 [facility] Comment on above: Performed By: #### C MP ####[address] [address] Protein [Mass/Vol] 6.8 g/dL Normal 6.4 - 8.2 [facility] Comment on above: Performed By: #### C MP ####[address] [address] Sodium [Moles/Vol] 140 mmol/L Normal 136 - 145 [facility] Comment on above: Performed By: #### C MP ####[address] [address] Urea nitrogen [Mass/Vol] 15 mg/dL Normal 6 - 23 [facility] Comment on above: Performed By: #### C MP ####[address] [address] [address] ABDOMEN AND PELVIS W IV C [facility] 08-30-2021 CT ABDOMEN AND PELVIS W IV CONTRAST Patient Name: SHERIN SANDOVAL STUDY: CT ABDOMEN AND PELVIS W IV CONTRAST; 08/30/2021 9:51 am INDICATION: stable . COMPARISON: 08/29/2021 ACCESSION NUMBER(S): [id number] ORDERING CLINICIAN: DIONICIO MEDINA TECHNIQUE: CT of the abdomen and pelvis was performed. Standard contiguous axial images were obtained at 3 mm slice thickness through the abdomen and pelvis. Coronal and sagittal reconstructions at 3 mm slice thickness were performed. 90 ml of contrast Omnipaque 350 were administered intravenously without immediate complication. FINDINGS: FINDINGS: LOWER CHEST: Within normal limits. ABDOMEN: LIVER: Within normal limits. BILE DUCTS: Normal caliber. GALLBLADDER: No calcified gallstones. No wall thickening. SPLEEN: Within normal limits. ADRENALS: Within normal limits. PANCREAS: Within normal limits. KIDNEYS/URETERS: A left double-J stent is present. Mild left hydronephrosis is seen. There is a 4.8 mm stone in the lower pole of the left kidney. Minimal stranding of the left perirenal fat is seen. PELVIS: REPRODUCTIVE ORGANS: No pelvic masses. BLADDER: Within normal limits. VESSELS: The aorta and IVC are normal in caliber. RETROPERITONEUM/PERITONEU M/LYMPH NODES: No ascites or free air. No fluid collection. No enlarged mesenteric lymph nodes. BOWEL: Normal caliber. No abnormal appendix is noted. ABDOMINAL WALL: Within normal limits. BONES: Within normal limits. IMPRESSION: 1. Redemonstration of left double-J stent with mild left hydronephrosis and minimal stranding of the left perirenal fat. 2. Redemonstration of 4.8 mm stone in the lower pole of the left kidney. Electronically signed by: YEIMI ROSARIO MD Normal [facility] CT Abdomen and Pelvis with I V Contraston 08-30-2021 CT Abdomen and Pelvis W contrast IV Normal GM-Zqhwpxs-T [employer] Work Phone: Complete Blood Count + Diffe rentialon 08-30-2021 Basophils/100 WBC (Bld) 0.8 % 0.0 - 2.0 DA-Zyfyhpl-[employer] Work Phone: Erythrocyte distribution width (RBC) [Ratio] 15.4 % above high threshold See Below UJ-Rijfsjp-[employer] Work Phone: Comment on above: Reference Range: 11. 5 - 14.5 Hematocrit (Bld) [Volume fraction] 30.7 % below low threshold See Below RN-Qdakumr[employer] Work Phone: Comment on above: Reference Range: 36. 0 - 46.0 Hemoglobin (Bld) [Mass/Vol] 9.6 g/dL below low threshold See Below JM-Onyqtms-[employer] Work Phone: Comment on above: Reference Range: 12. 0 - 16.0 Lymphocytes/100 WBC (Bld) 23.1 % See Below [employer] Phone: Comment on above: Reference Range: 13. 0 - 44.0 MCHC (RBC) [Mass/Vol] 31.2 g/dL below low threshold See Below TU-Nrelpmc-[employer] Work Phone: Comment on above: Reference Range: 32. 0 - 36.0 MCV (RBC) [Entitic vol] 71 fL below low threshold 80 - 100 CA-Vvdiije-T [employer] Work Phone: Monocytes/100 WBC (Bld) 5.9 % 2.0 - 10.0 VB-Vsrhung-B [employer] Work Phone: Neutrophils/100 WBC (Bld) 67.4 % See Below CV-Sohrhaw-C [employer] Work Phone: Comment on above: Reference Range: 40. 0 - 80.0 Platelets (Bld) [#/Vol] 441 10*3/uL 150 - 450 NL-Zsfxubo-Q [employer] Work Phone: RBC (Bld) [#/Vol] 4.34 {x10E12/L} See Below [employer] Phone: Comment on above: Reference Range: 4.0 0 - 5.20 WBC (Bld) [#/Vol] 7.8 10*3/uL 4.4 - 11.3 -Uro logy-A [employer] Work Phone: [phone] Complete Blood Count + Differential 0.10 {x10E9/L} See Below DJ-Zofpotr-P [employer] Phone: [phone] Comment on above: Reference Range: 0.0 0 - 0.10 Complete Blood Count + Differential 0.20 {x10E9/L} See Below XQ-Ybdjizt-X [employer] Phone: Comment on above: Reference Range: 0.0 0 - 0.70 Complete Blood Count + Differential 0.50 {x10E9/L} See Below CT-Gzsokpq-O [employer] Phone: Comment on above: Reference Range: 0.1 0 - 1.00 Complete Blood Count + Differential 1.80 {x10E9/L} See Below OY-Mmkfnqi-R [employer] Phone: Comment on above: Reference Range: 1.2 0 - 4.80 Complete Blood Count + Differential 5.20 {x10E9/L} See Below UT-Zjytbar-M [employer] Work Phone: Comment on above: Reference Range: 1.2 0 - 7.70 Percent differential counts (%) should be interpreted in the context of the absolute cell counts (cells/L). Complete Blood Count + Differential 2.8 % 0.0 - 6.0 JN-Uzhgpoa-L syd Work Phone: Covid 19 Resultson 2 SARS-CoV-2 (COVID-19) RNA ELEUTERIO+probe Ql (Unsp spec) NEGATIVE COVID-19 Test Coronaviruses are common world-wide and are the cause of many common colds. SARS-COV2 is a new coronavirus that began circulating worldwide in 2019 so we are calling it COVID-19. It has been estimated that four out of five patients with COVID-19 will recover at home without the need for medical attention. Symptoms of COVID-19 may include cough, fever, shortness of breath, loss of taste or smell and other flu-like symptoms including chills, sore muscles, sore throat, and headache. Severe illness is more common in older people and people with other health problems such as high blood pressure, obesity, and immune system problems. If the test is positive, you have COVID-19. You will be contacted by the ordering physicians office and instructed to remain on home isolation, in accordance with CDC guidelines. You may also be contacted by the [facility] to see if any of your close contacts may have been exposed to the virus and need to quarantine. If the test is negative, you likely do not have COVID-19 at this time, but you still may have a different illness that can spread to other people (like Influenza, or the Flu) and could still be at risk for getting COVID-19. We recommend that you stay away from other people to limit the spread of illness until your symptoms are improving and you are fever-free for 24 hours without the use of fever lowering medications such as acetaminophen or ibuprofen. No test is 100% accurate so if you are still concerned you may have COVID-19, talk to your doctor about the need to continue to stay away from others. Medicines Unless your provider told you not to use the following: Acetaminophen (Tylenol and others) is generally safe. Anti-inflammatory medications, such as Ibuprofen (Advil or Motrin) or Naproxen (Aleve) can also be used. Ofks-khe-ftdncfx cough and cold medicines can be used according to the instructions on the package. Some juho-acg-eujiobr medicines also contain acetaminophen. Make sure you are not taking more than your recommended dose. For those not hospitalized, there is no specific treatment available for this illness. Antibiotics do not treat Coronaviruses. Follow-Up Follow up with your doctor by scheduling a virtual visit or consider follow-up at one of our urgent care fever clinics. If you are having difficulty breathing, or are very weak and having difficulty standing, this is a medical emergency. Call 911 or have someone take you to the nearest emergency room immediately. If possible, wear a facemask. Additional guidance from the CDC for patients who tested POSITIVE for COVID-19 How to isolate: Isolate yourself in a specific room at home and limit your contact with others. Use a separate bathroom from other members of the household, when possible. Leave home only to get essential medical care. Do not go to work, school or public areas. Avoid using public transportation, ride-sharing, or taxis. Restrict contact with pets and other animals. If you must care for your pet or be around animals while you are sick, wash your hands before and after your interaction and wear a facemask. Make sure that shared spaces in the home have good airflow, such as by an air conditioner or an opened window, weather permitting. Personal Hygiene Procedures: Wear a face mask when in the same room as other people or pets. If a face mask interferes with your breathing, others should wear a mask when sharing space with you. Frequent hand-washing: wash your hands with soap and water for at least 20 seconds. If soap and water are not available, use alcohol-based hand personnel officer. Avoid touching your eyes, nose, and mouth with unwashed hands. Household Hygiene Procedures: Avoid sharing personal household items such as dishes, glassware, cups, eating utensils, towels or bedding with other people or pets in your home. After use, these items should be washed with soap and hot water. Disinfect all high-touch surfaces every day with antibacterial cleaning solutions such as Lysol wipes, bleach, cleansers, etc. High-touch surfaces include tabletops, doorknobs, bathroom fixtures, toilets, phones, keyboards, tablets and bedside tables. Immediately clean any surfaces that may have blood, poop or body fluids on them, using antibacterial cleaning solutions such as Lysol wipes, bleach, cleansers, etc. If clothing or bedding come into contact with blood, poop or body fluids, they should be washed immediately. Follow the directions on the laundry detergent and clothing labels but hot water is recommended when possible. Stopping home isolation precautions: If possible, consult your doctor before stopping home isolation precautions. According to the CDC, you can discontinue home isolation precautions when you have met both of these criteria: Your fever and respiratory symptoms have been gone for 24 chet (more content not included)... Normal [facility] Cult, Urineon 08-30-2021 Bacteria identified Cx Nom (U) JI-Lzbqjtn-I [facility] Work Phone: Discharge [id number] Discharge Profile2 Discharge Orders: Anticipated Discharge Date: Anticipated Discharge [id number] Anticipated Discharge Time10:00 DNAR: Code Status at Discharge: Full Code Diet: Dietregular Additional Orders: Additional Instructions Follow up with PCP within 1 week of discharge Follow up with Dr. Chopra and Saturday Resume home medications Resume home pain medications-follow up Urology today if wants changed Bactrim for 5 days-follow up with Urology today if wants changed Fluconazole x 2 days-follow up with Urology today if wants changed Call Provider If (Homegoing Patients): Breathing faster than normal. Breathing harder than normal or having retractions. Fever of 100.4 F (38 C) or higher. Temperature is greater than 102 degrees. Chills. Drinking less than normal. Not being able to go 4-6 hours between albuterol treatments. Urinating less than normal, over 1 day. Urinating less than 4 times per day. Acting very sleepy and difficult to awaken. Vomiting (throwing up) and not able to eat or drink for 12 hours. 3 or more loose, watery bowel movements in 24 hours (diarrhea). Any new concerning symptoms. Hospital Course (Home Care/Gold Form): Hospital Course: Hospital Course: include significant abnormal lab values HPI: SHERIN SANDOVAL is a 26 year old Female presents to [facility] ER from home with chief complaint of severe left flank pain. Patient was admitted and had a ureteral stent placed and discharged from the hospital on Saturday. Patient returned yesterday with the same complaints. Patient was treated yesterday and discharged. Patient states that the pain has been severe and medication she was prescribed lasts 30 minutes and wears off. Patient indicates a left stabbing constant pain that radiates around to the front pubic area. Denies any urinary issues. Her urologist Dr. Chopra was contacted through the ED, who indicated she could be admitted for pain management and have the stent removed tomorrow in his office after discharge. Dr. Chopra had his 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 see patient and recommended Ditropan and pyridium. Will admit for pain management and urinary tract infection. Past medical history: Iron deficiency anemia, anxiety, panic attacks, dental caries, thyroid nodule, situational anxiety, kidney stones Past surgical history: tonsillectomy Social history: non smoker Family history: Non contributory to admission Hospital course: Patient was treated with IV Dilaudid and IV fluids. Pain seemed well controlled. Urology 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 seen patient on Dr. Chopra' behalf. Wants to see patient in his office tomorrow on discharge. Will be prescribed Bactrim for 5 days and fluconazole for 3 days, received 1 dose in patient, as has urinary tract infection with budding yeast. HCG serum negative August 25. Patient will be discharged this am as Dr. Chopra wants patient a this office at 9:30. Patient has emained afebrile, hemodynamically stable, is having pain, however, is scheduled for stent removal this am so pain may be more manageable after procedure, and having possible lithotripsy on Saturday with Dr. Chopra. She was informed to resume home medications and will get prescription for Bactrim and Fluconazole for urinary tract infection with budding yeast. I will defer changes to the plan of care on discharge to Dr. Chopra as he may want to change antibiotic regimen and or pain control plan of care at his 9:30 am appointment, patient will discuss today with Urology. She has no complaints of blood in urine, diarrhea, fever, chills., shortness of breath, chest pain, current abd pain. Provider FINAL REVIEW of Orders: Final Review: Final Review of Medication Reconciliation and Orders Completedby TEXTILE CONVERSION MANAGER Reviewing ProviderInocencia Angel APRN-JIM at 31-Aug-2021 07:29:55 Appointments: Follow-Up Appointment 01: Physician/Dept/Jaime Reason for Referralfollow up post discharge Call to Schedule in1 week Follow-Up Appointment 02: Physician/Dept/ServiceDr. Chopra Reason for ReferralUrology Call to Schedule in his office at 9:30 Electronic Signatures: Inocencia Angel (TEXTILE CONVERSION MANAGER-[facility]) (Signed 31-Aug-2021 07:29) Authored: Discharge Orders, Hospital Course (Home Care/Gold Form), Provider FINAL REVIEW of Orders, Appointments, Gold Form - Process Manufacturing Engineer Summary Last Updated: 31-Aug-2021 07:29 by Inocencia Angel ([facility]) Normal [facility] INFLUENZA A/B, COVID 2019 PC R,SYMPTOMATICon 08-30-2021 Lab Specimen Source Nasal, Nasopharyngeal Normal [facility] Comment on above: Performed By: #### U RINC #### [facility] [id number] [place] [address] INFLUENZA A, PCR Not detected Normal Not Detected [facility] Comment on above: Result Comment: Resp iratory virus testing is performed routinely by PCR for Influenza A/B and RSV. Not Detected results do not preclude Influenza A/B or RSV infections since the adequacy of sample collection or low viral burden may impact the clinical sensitivity of this test method. Performed By: #### U RINC #### [facility] [address] [place] [id number] INFLUENZA B, PCR Not detected Normal Not Detected [facility] Comment on above: Result Comment: Resp iratory virus testing is performed routinely by PCR for Influenza A/B and RSV. Not Detected results do not preclude Influenza A/B or RSV infections since the adequacy of sample collection or low viral burden may impact the clinical sensitivity of this test method. Performed By: #### U RINC #### [facility] [address] [place] [id number] SARS-CoV-2 (COVID-19) RNA ELEUTERIO+probe Ql (Unsp spec) Not detected Normal Not Detected [facility] Comment on above: Result Comment: . This test has received FDA Emergency Use Authorization (EUA) and has been verified by [facility]. This test is only authorized for the duration of time that circumstances exist to justify the authorization of the emergency use of in vitro diagnostic tests for the detection of SARS-CoV-2 virus and/or diagnosis of COVID-19 infection under section 564(b)(1) of the Act, 21 U.S.C. 360bbb-3(b)(1), unless the authorization is terminated or revoked sooner. [facility] is certified under CLIA-88 as qualified to perform high complexity testing. Testing is performed in the [facility] laboratory located at [address] [place] [address]. SARS-CoV-2/Flu/RSV Multiplex Test: Fact sheet for providers: https://www.fda.gov/media/112644/download Fact sheet for patients: https://www.fda.gov/media/044734/download Performed By: #### [facility] #### [facility] [address] [place] [address] INFLUENZA A/B, COVID 2019 PCR,SYMPTOMATIC Not detected See Below -Urology- A [facility] Work Phone: Comment on above: Reference Range: Not Detected.This test has received FDA Emergency Use Authorization (EUA) and has been verified by [facility]. This test is only authorized for the duration of time that circumstances exist to justify the authorization of the emergency use of in vitro diagnostic tests for the detection of SARS-CoV-2 virus and/or diagnosis of COVID-19 infection under section 564(b)(1) of the Act, 21 U.S.C. 360bbb-3(b)(1), unless the authorization is terminated or revoked sooner. [facility] is certified under CLIA-88 as qualified to perform high complexity testing. Testing is performed in the [facility] laboratory located at [address] [place] [address].SARS-CoV-2/Flu/RSV Multiplex Test: Fact sheet for providers: https://www.fda.gov/media/554710/downloadFact sheet for patients: https://www.fda.gov/media/521441/download Reference Range: Not Detected Respiratory virus testing is performed routinely by PCR for Influenza A/B and RSV. Not Detected results do not preclude Influenza A/B or RSV infections since the adequacy of sample collection or low viral burden may impact the clinical sensitivity of this test method. SOURCE: Nasal, Nasop haryngealReference Range: Not Detected Respiratory virus testing is performed routinely by PCR for Influenza A/B and RSV. Not Detected results do not preclude Influenza A/B or RSV infections since the adequacy of sample collection or low viral burden may impact the clinical sensitivity of this test method. LACTATEon 08-30-2021 Lactate [Moles/Vol] 0.9 mmol/L Normal 0.4 - 2.0 [facility] Comment on above: Result Comment: Sheyla puncture immediately after or during the administration of Metamizole may lead to falsely low results. Testing should be performed immediately prior to Metamizole dosing. Performed By: #### L ACT #### [address] [id number] [place] [address] Laboratory - Chemistry and C hemistry - challengeon 08-30-2021 Albumin BCP dye [Mass/Vol] 3.9 g/dL 3.4 - 5.0 BA-Vomvlqt-E [facility] Work Phone: ALP [Catalytic activity/Vol] 60 U/L 33 - 110 BM-Lnmidvq-S [employer] Work Phone: ALT With P-5'-P [Catalytic activity/Vol] 13 U/L 7 - 45 ED-Lmvfqes-Z [employer] Work Phone: Comment on above: Patients treated wit h Sulfasalazine may generate falsely decreased results for ALT. Anion gap [Moles/Vol] 11 mmol/L 10 - 20 MP- Urology-A [employer] Work Phone: AST With P-5'-P [Catalytic activity/Vol] 12 U/L 9 - 39 VG-Dofveey-M [employer] Work Phone: Bilirubin [Mass/Vol] 0.3 mg/dL 0.0 - 1.2 MP-U rology-A [employer] Work Phone: Calcium [Mass/Vol] 8.9 mg/dL 8.6 - 10.3 MP-Uro logy-A [employer] Work Phone: Chloride [Moles/Vol] 105 mmol/L 98 - 107 MP-U rology-A [employer] Work Phone: CO2 [Moles/Vol] 28 mmol/L 21 - 32 MP-Urolog y-A [employer] Work Phone: [phone] Creatinine [Mass/Vol] 0.78 mg/dL See Below MP- Urology-A [facility] Work Phone: Comment on above: Reference Range: 0.5 0 - 1.05 Glucose [Mass/Vol] 95 mg/dL 74 - 99 MP-Uro logy-A [employer] Work Phone: Potassium [Moles/Vol] 4.4 mmol/L 3.5 - 5.3 MP- Urology-A [facility] Work Phone: [phone] Protein [Mass/Vol] 6.8 g/dL 6.4 - 8.2 MP-Uro logy-A [employer] Work Phone: Sodium [Moles/Vol] 140 mmol/L 136 - 145 MP-Uro logy-A [employer] Work Phone: Urea nitrogen [Mass/Vol] 15 mg/dL 6 - 23 JJ-Yaqqggh-P [employer] Work Phone: [phone] Lactate, Levelon 08-30-2021 Lactate [Moles/Vol] 0.9 mmol/L 0.4 - 2.0 MP-Ur ology-A [employer] Work Phone: Comment on above: Venipuncture immedia tely after or during the administration of Metamizole may lead to falsely low results. Testing should be performed immediately prior to Metamizole dosing. No Panel Informationon 08-30 FEW UG-Cqxfrsf-T [facility] Work Phone: SEE BELOW ZY-Nipwvwe-E [employer] Phone: >90 >90 QP-Ebmjemd-Y [employer] Work Phone: Comment on above: CALCULATIONS OF SHY MATED GFR ARE PERFORMED USING THE 2021 CKD-EPI STUDY REFIT EQUATION WITHOUT THE RACE VARIABLE FOR THE IDMS-TRACEABLE CREATININE METHODS.https://jasn.asnjournals.org/content// N.0981609997 Order Reconciliationon 08-30 Order Reconciliation Page 1 Discharge Reconciliation Document Reconciliation Type: Discharge requested on behalf of Inocencia Angel (Advanced Practice Nurse) done by Inocencia Angel ([facility]) Discharge - Partial Reconciliation: 30-Aug-2021 17:00 by: Inocencia Angel ([facility]) Discharge - Reconciliation: 30-Aug-2021 17:32 by: Inocencia Angel ([facility]) Discharge - Reset to Incomplete: 30-Aug-2021 17:35 by: Inocencia Angel ([facility]) Discharge - Reconciliation: 30-Aug-2021 17:36 by: Inocencia Angel ([facility]) Discharge - Reset to Incomplete: 30-Aug-2021 17:36 by: Inocencia Angel ([facility]) Discharge - Reconciliation: 30-Aug-2021 17:37 by: Inocencia Angel ([facility]) Home Medications EnteredHOME MEDICATIONS AT DISCHARGE DateReconciliation Comment/ Additional Information Cipro 500 mg oral tablet 1 tab(s) orally every 12 hours 29-Aug-2021 11:27 Cipro 500 mg oral tablet 1 tab(s) orally every 12 hours 29-Aug-2021 11:27 Cipro 500 mg oral tablet is continued as Cipro 500 mg oral tablet fluconazole 200 mg oral tablet 1 tab(s) orally once a day (in the morning) // pt states she took all doses except the last dose 30-Aug-2021 11:33 Discontinued; Discontinue from ORM fluconazole 200 mg oral tablet is not required ibuprofen 200 mg oral tablet 2 tab(s) orally every 6 hours, As Needed - for pain 30-Aug-2021 11:34 ibuprofen 200 mg oral tablet 2 tab(s) orally every 6 hours, As Needed - for pain 30-Aug-2021 11:34 ibuprofen 200 mg oral tablet is continued as ibuprofen 200 mg oral tablet ondansetron 4 mg oral tablet, disintegrating 1 tab(s) orally 3 times a day 29-Aug-2021 11:27 ondansetron 4 mg oral tablet, disintegrating 1 tab(s) orally 3 times a day 29-Aug-2021 11:27 ondansetron 4 mg oral tablet, disintegrating is continued as ondansetron 4 mg oral tablet, disintegrating oxycodone-acetaminophen 5 mg-325 mg oral tablet 1 tab(s) orally every 8 hours 29-Aug-2021 11:28 oxycodone-acetaminophen 5 mg-325 mg oral tablet 1 tab(s) orally every 8 hours 29-Aug-2021 11:28 oxycodone-acetaminophen 5 mg-325 mg oral tablet is continued as oxycodone-acetaminophen 5 mg-325 mg oral tablet traMADol 50 mg oral tablet 1 tab(s) orally every 6 hours, As needed, Pain - Mod (4-6) 27-Aug-2021 07:54 traMADol 50 mg oral tablet 1 tab(s) orally every 6 hours, As needed, Pain - Mod (4-6) 27-Aug-2021 07:54 traMADol 50 mg oral tablet is continued as traMADol 50 mg oral tablet Current OrdersDateHOME MEDICATIONS AT DISCHARGE DateReconciliation Comment/ Additional Information Acetaminophen Tablet (TYLENOL)DOSE = 650 mg Oral Every 4 Hours, PRN Pain - Mild (1-3) 30-Aug-2021 11:01 Acetaminophen is not required Acetaminophen Tablet (TYLENOL)DOSE = 650 mg Oral Every 4 Hours, PRN Temp Greater Than or Equal to 38.0 C 30-Aug-2021 11:01 Acetaminophen is not required cefTRIAXone 1 gram/ Dextrose 5% IVPB Premixed Soln 50 mL (ROCEPHIN)Every 24 HoursRecommended Infusion Time: 30 minute(s) 30-Aug-2021 11:01 cefTRIAXone 1 gram/ Dextrose 5% IVPB Premixed Soln 50 mL is not required Docusate Capsule (COLACE)DOSE = 100 mg Oral 2 Times a Day, PRN Constipation 30-Aug-2021 11:01 Docusate is not required Fluconazole Tablet (DIFLUCAN)DOSE = 200 mg Oral Every 24 HoursNotes from Pharmacy: Reproductive Risk- Single Nitrile Glove 30-Aug-2021 14:32 Fluconazole is not required HYDROmorphone Injectable (DILAUDID)DOSE = 0.2 mg IntraVenous Push Every 3 Hours, PRN Pain - Mod (4-6) 30-Aug-2021 16:09 HYDROmorphone Injectable is not required HYDROmorphone Injectable (DILAUDID)DOSE = 0.5 mg IntraVenous Push Every 3 Hours, PRN Pain - Severe (7-10) 30-Aug-2021 16:09 HYDROmorphone Injectable is not required Ondansetron Injectable (ZOFRAN)DOSE = 4 mg IntraVenous Push Every 4 Hours, PRN Nausea and/or Vomiting 30-Aug-2021 11:01 Ondansetron Injectable is not required Oxybutynin Tablet (DITROPAN)DOSE = 5 mg Oral 2 Times a Day 30-Aug-2021 14:06 Oxybutynin is not required Phenazopyridine Tablet (PYRIDIUM)DOSE = 100 mg Oral 3 Times a Day After Meals 30-Aug-2021 13:37 Phenazopyridine is not required Sodium Chloride 0.9% Infusion IV Bag Volume = 1,000 mL Run at: 125 mL/hr IntraVenous 30-Aug-2021 11:01 Sodium Chloride 0.9% Infusion is not required Sodium Chloride 0.9% Injectable Flush via Peripheral LineVolume = 10 mL IntraVenous Flush Every 8 Hours and as Needed 30-Aug-2021 11:01 Sodium Chloride 0.9% Injectable Flush is not required Home Medications Added During Discharge Reconciliation fluconazole 200 mg oral tablet 1 tab(s) orally once a day (in the morning) // pt states she took all doses except the last dose - Discontinued; Discontinue from ORM Bactrim DS 800 mg-160 mg oral tablet 1 tab(s) orally 2 times a day fluconazole 200 mg oral tablet 1 tab(s) orally once a day All Active Home Medications at time of Discharge Reconciliation: 30-Aug-2021 17:37 Bactrim DS 800 mg-160 mg oral tablet 1 tab(s) orally 2 times a day Cipro 500 mg oral tablet 1 tab (more content not included)... Normal [facility] Order Reconciliation Page 1 Admission Reconciliation Document Reconciliation Type: ED to Observation requested on behalf of Inocencia Angel (Advanced Practice Nurse) done by Inocencia Angel (TEXTILE CONVERSION MANAGER-[facility]) ED to Observation - Reconciliation: 30-Aug-2021 14:32 by: Inocencia Angel ([facility]) ED to Observation - AutoLinked: 30-Aug-2021 14:32 by: Inocencia Angel ([facility]) Home MedicationsEnteredLast Dose TakenReconciled with current Order Reconciliation Comment/ Additional Information Cipro 500 mg oral tablet 1 tab(s) orally every 12 hours 30-Aug-2021 5:00 AM Reviewed and Held fluconazole 200 mg oral tablet 1 tab(s) orally once a day (in the morning) // pt states she took all doses except the last [id number] Reviewed and Held ibuprofen 200 mg oral tablet 2 tab(s) orally every 6 hours, As Needed - for [id number] 2 11:00 PM Reviewed and Held ondansetron 4 mg oral tablet, disintegrating 1 tab(s) orally 3 times a day 5:00 AM Reviewed and Held oxycodone-acetaminophen 5 mg-325 mg oral tablet 1 tab(s) orally every 8 hours 5:00 PM Reviewed and Held traMADol 50 mg oral tablet 1 tab(s) orally every 6 hours, As needed, Pain - Mod (4-6)-Apr-20 22 Reviewed and Held Additional Current Orders Acetaminophen Tablet (TYLENOL)DOSE = 650 mg Oral Every 4 Hours, PRN Pain - Mild (1-3) Acetaminophen Tablet (TYLENOL)DOSE = 650 mg Oral Every 4 Hours, PRN Temp Greater Than or Equal to 38.0 C cefTRIAXone 1 gram/ Dextrose 5% IVPB Premixed Soln 50 mL (ROCEPHIN)Every 24 HoursRecommended Infusion Time: 30 minute(s) Docusate Capsule (COLACE)DOSE = 100 mg Oral 2 Times a Day, PRN Constipation Fluconazole Tablet (DIFLUCAN)DOSE = 200 mg Oral Every 24 HoursNotes from Pharmacy: Reproductive Risk- Single Nitrile Glove HYDROmorphone Injectable (DILAUDID)DOSE = 0.2 mg IntraVenous Push Every 4 Hours, PRN Pain - Mod (4-6) HYDROmorphone Injectable (DILAUDID)DOSE = 0.5 mg IntraVenous Push Every 4 Hours, PRN Pain - Severe (7-10) Ondansetron Injectable (ZOFRAN)DOSE = 4 mg IntraVenous Push Every 4 Hours, PRN Nausea and/or Vomiting Oxybutynin Tablet (DITROPAN)DOSE = 5 mg Oral 2 Times a Day Phenazopyridine Tablet (PYRIDIUM)DOSE = 100 mg Oral 3 Times a Day After Meals Sodium Chloride 0.9% Infusion IV Bag Volume = 1,000 mL Run at: 125 mL/hr IntraVenous Sodium Chloride 0.9% Injectable Flush via Peripheral LineVolume = 10 mL IntraVenous Flush Every 8 Hours and as Needed Normal [facility] Patient Profile - Adult v2on 08-30-2021 Patient Profile - Adult v2 Profile: Initial Info: How to be AddressedElizabeth(1) Spoken Language PreferredEnglish (1) Source of Informationpatient Stated Reason for Admissionkidney stone/infection/stent - having pain r/t to this Primary Contact Name and NumberSean Lori [phone] Wants Family/Rep Notified of Admissionn/a; family present Notify PCPdo not notify PCP Informed of Patient Vis[place]hospital [facility] Patient Belongingsremains with patient Patient Belongings Remaining with Patientclothing; cell phone/electronics Medications Brought to Hospitalyes Medication Dispositionsent home with family General Health: Weight in kg127 kilogram(s)(2) Weight in ulq254.9 pound(s) Weight Methodactual (measured) Scale Typebed Height in cm162.5 centimeter(s) Height in feet5 feet Height in inches3.98 inch(es) Height Methodstated BMI (kg/m2)48.094 square meter RSP Based Care: How would you like to participate in your careknow what is going on What is the number one concern for you during this hospitalizationgetting pain under control What is the most important thing we can do to support you during this hospitalizationhelp manage pain Is there anything we need to know to best care for youno Substance: Smoking Statusnever smoker (3) Alcohol Usedenies(3) Drug Usedenies (3) Health Mgmt: Symptoms/Conditions Managed at Homegenitourinary Are You no (3) Are You Currently Breastfeedingno (3) Genitourinary Symptoms/Conditionsstones Genitourinary Managementnot managed Barriers to Managing Healthnone Relationship/Environ: Resource/Environmental Concernsnone Primary Source of Support/Comfortspouse Lives Withspouse Living Arrangementshouse Services Anticipated at Transitionnone Anticipated Transition Tohome Significant IndicatorsComplete Information Review: Allergies, Home Meds and Significant Events have been Reviewed and Verified with Patient/Familyyes ALLERGY, INTOLERANCE, ADVERSE EVENT: Allergies: No Known Allergies: Active Electronic Signatures: Yohana Islas (RN) (Signed 30-Aug-2021 12:02) Authored: Initial Info, General Health, RSP Based Care, Substance, Health Mgmt, Relationship/Environ, Additional Information Last Updated: 30-Aug-2021 12:02 by Yohana Islas (MIHIR) References: 1. Data Referenced From Patient Profile - Preop v3 30-Aug-2021 07:47 2. Data Referenced From 1. Vital Signs 30-Aug-2021 07:20 3. 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, insurance information Prep Instructions Reviewedyes Instructed to Have No Fluids Aftermidnight How to be AddressedElizabeth Spoken Language PreferredEnglish Source of Informationpatient Stated Reason for AdmissionKidney flank pain Primary Contact Name and NumberSean () [phone] Limitations on Visitors/Phone Callsnone Medications Brought to Hospitalno General Health: Weight in kg132.8 kilogram(s) Weight in uiw733.7 pound(s) Weight Methodactual (measured) Scale Typebed Height in feet5 feet Height in inches3.98 inch(es) Height in cm162.5 centimeter(s) Height Methodstated BMI (kg/m2)50.291 square meter Patient or Family Member Reaction to Anesthesiano previous reaction; no previous family member reaction Blood Avoidance/Restrictionsnon e Previous Transfusion Reactionnot applicable Health Mgmt: Symptoms/Conditions Managed at [place] Are You no Are You Currently Breastfeedingno Barriers to Managing Healthnone Relationship/Environ: Lives Withspouse Living Arrangementsapartment Resource/Environmental Concernsnone [place] Anticipated at Transitionnone Tobacco Use: Tobacco Useno Pre-op Checklist: Arrival [id number] Arrival Time08:50 Procedure TypeEswl NPOyes Last Food [id number] 22:00 Last Clear Fluid [id number] 22:00 ID Band On Patientpatient ID (name) Consent Signedyes, Consent verified with H&P H&P Completeyes Anesthesia Assessment Completedyes EKG Performednot ordered Chest X-Ray Performednot ordered Preop Antibioticsstarted in preop HCG Urine TestN/A Chlorhexadine Bath Givennot applicable Nasal Antiseptic Appliednot applicable Soap and Water Bath the Night Before Surgerynot applicable Hair Washed with Shampoonot applicable Bowel Prepno Surgical Site Infection Preventionyes Pain Scales and Managementyes Additional Information: Information Review: Allergies, Home Meds and Significant Events have been Reviewed and Verified with Patient/Familyyes Allergy, Intolerance, Adverse Event: Allergies: No Known Allergies: Active Problem List: Surg History: History of tonsillectomy and adenoidectomy: Catalog Name: Acquired absence of other organs Electronic Signatures: Kirit Mendez) (Signed 01-Sep-2021 09:03) Authored: General Health, Health Mgmt, Pre-op Checklist, Additional Information Chastity Azar) (Signed 30-Aug-2021 07:49) Authored: Initial Info, General Health, Health Mgmt, Relationship/Environ, Tobacco Use, Additional Information Last Updated: 01-Sep-2021 09:03 by Kirit Menedz) [facility] Provider Note - ED v3on 04-2 Provider Note - ED v3 Provider Note: Chart Review: ED NOTES ED NOTES: 26-year-old female presents with severe left flank pain. Patient was admitted and had a ureteral stent placed and discharged from the hospital on Saturday. Patient returned yesterday with the same complaints. Patient was treated yesterday and discharged. Patient states that the pain has been severe and medication she was discharged home with I have not been of any benefit. Patient seems uncomfortable upon physical examination. The patient returned from CAT scan with severe pain. Patient was given 0.5 mg of IV Dilaudid. Patient states that the medication she is taking at home controls her pain for approximately 1 hour. I did speak to her urologist who indicated she could be admitted for pain management and have the stent removed tomorrow in his office. I did go over the CAT scan findings and blood work and urine with the patient. Patient did receive 1 g of Rocephin. Patient at present is comfortable. HISTORY OF PRESENTING ILLNESS SHERIN is a 26 year old Female and was seen by me at 30-Aug-2021 07:27 for a chief complaint of flank pain (To ED per wheelchair c/o L flank pain. Reports that she was here yesterday for the same after having kidney stent placed last week. Was supposed to see urology to have stent removed this Saturday. Has been taking Oxycodone as prescribed. Last dose was around 0600. Rates pain 02/19.). The historian is the patientspouse. Triage Information: Most recent Vital Sign Value Date Temp (F): 98.1 08-30-2021 07:20 Temp (C): 36.7 08-30-2021 07:20 Heart Rate (beats/min): 101 08-30-2021 07:20 Respirations (breaths/min): 16 08-30-2021 07:20 SpO2 (%): 100 08-30-2021 07:20 BP Systolic (mm Hg): 158 08-30-2021 07:20 BP Diastolic (mm Hg): 119 08-30-2021 07:20 PAST MEDICAL HISTORY ALLERGIES/INTOLERANCES: No Known Allergies HEALTH HISTORY: Medical History Name:Iron deficiency anemia Code:D50.9 Name:Dental caries Code:K02.9 Name:Anxiety Code:F41.9 Name:Panic attacks Code:F41.0 OUTPATIENT MEDICATIONS: Home Medications Review Status for Reconciliation: N/A Med Status: Incomplete Medication History Drug Name: NuvaRing 0.120 mg-0.015 mg/24 hours vaginal ring Instructions: 1 each vaginal every 4 weeks as directed Drug Name: traMADol 50 mg oral tablet Instructions: 1 tab(s) orally every 6 hours, As needed, Pain - Mod (4-6) Drug Name: ondansetron 4 mg oral tablet, disintegrating Instructions: 1 tab(s) orally 3 times a day Drug Name: Cipro 500 mg oral tablet Instructions: 1 tab(s) orally every 12 hours Drug Name: oxycodone-acetaminophen 5 mg-325 mg oral tablet Instructions: 1 tab(s) orally every 8 hours SIGNIFICANT EVENTS: Clinical Events Description:Surgical Procedure Additional Notes:1. CYSTO L RPG L URETER W/CLAYTON L STENT; Past Medical History Description:anxiety Description:situational anxiety Description:kidney stones Description:thyroid nodule Past Surgical History Description:TONSILLECTOMY REVIEW OF SYSTEMS GASTROINTESTINAL: POSITIVE for: abdominal pain and nausea; All other systems reviewed and are negative PHYSICAL EXAM CONSTITUTIONAL: Obese 26-year-old female in mild to moderate distress secondary to left CVA or flank pain. HENMT: Airway patent, ears with clear tympanic membranes bilaterally. Nasal mucosa clear. Mouth with normal mucosa. Throat has no vesicles, no oropharyngeal exudates and uvula is midline. Face with no lymph node enlargement. EYES: Clear bilaterally, pupils equal, round and reactive to light. CARDIOVASCULAR: Normal rate, regular rhythm. Heart sounds S1, S2. No murmurs, rubs or gallops. PMI non-displaced. RESPIRATORY: Breath sounds clear and equal bilaterally. GASTROINTESTINAL: Abdomen soft, non-distended, no rebound, no guarding. Bowel sounds normal in all 4 quadrants. Moderate left CVA and flank pain to any type of percussion. GENITOURINARY: No discharge, no lesions. MUSCULOSKELETAL: Spine appears normal, range of motion is not limited, no muscle or joint tenderness. NEUROLOGICAL: Alert and oriented, no focal deficits, no motor or sensory deficits. SKIN: Skin normal color for race, warm, dry and intact. No evidence of trauma. PSYCHIATRIC: Alert and oriented to person, place, time/situation. normal mood and affect. No apparent risk to self or others. HEME/LYMPH: No adenopathy or splenomegaly. No cervical, supraclavicular or inguinal lymphadenopathy. DISPOSITION Diagnosis/Annotation: ED Dx Name:Ureteral colic Code:N23 Name:UTI (urinary tract infection) Code:N39.0 Name:Calculus of left kidney Code:N20.0 Disposition: hospitalized Admit to: Observation. Admitting Considerations: CONSULT CRITICAL CARE TIME Is this a critically ill patient: no Electronic Signatures: Dionicio Medina () (Signed 30-Aug-2021 10:39) Authored: ED Notes, HPI, PMH, (more content not included)... Normal [facility] RED CELL MORPHOLOGYon 2021 OVALOCYTES FEW Normal [facility] Comment on above: Performed By: #### L ACT #### [place] [address] RBC morphology finding Nom (Bld) SEE BELOW [facility] Comment on above: Performed By: #### L ACT #### [place] [id number] Risk Screen - Adult Emergenc yon 08-30-2021 Risk Screen - Adult Emergency Preferred Language: Preferred Language: Preferred Language for Discussing Health Care (patient/designee)Mozambican Advanced Directives: Advance Directive/DNRno Family Violence Adult: Abuse Screen: Are you or have you been threatened or abused physically, emotionally, or sexually by anyoneno Learning Assessment (Patient): Learning Assessment (Patient): Patient is Able to be Assessed for Learningyes Factors Influencing Readiness to Learnacuteness of illness Factors that Impact Ability to Learnnone Devices/Methods Used to Communicatenone Learning Preferencesverbal instruction; written material Cultural Considerationsnone Developmental Considerationsnone Oriental Orthodox Considerationsnone Other Learnerssignificant other Learning Assessment (Other Learner): Learning Assessment (Other Learner): Other learner availableyes... Learnersignificant other Factors Influencing Readiness to Learnacuteness of illness Factors that Impact Ability to Learnnone Devices/Methods Used to Communicatenone Learning Preferencesverbal instruction, written material Cultural Considerationsnone Developmental Considerationsnone Oriental Orthodox Considerationsnone Pressure Injury/TB/Substance: Pressure Injury: Pressure Injury Present on Admissionno Do you have a coughno Smoking Statusnever smoker (1) Alcohol Usedenies(1) Drug Usedenies (1) Admission Risk Screen: Significant IndicatorsComplete CAGE: CAGE: Is this an injured patient at a Trauma Center ([facility]/[place]/ [place]): no Electronic Signatures: Didi Johnson) (Signed 30-Aug-2021 07:45) Authored: Preferred Language, Advanced Directives, Family Violence Adult, Learning Assessment (Patient), Learning Assessment (Other Learner), Pressure Injury/TB/Substance, Pressure Injury, CAGE Last Updated: 30-Aug-2021 07:45 by Didi Johnson (RN) References: 1. Data Referenced From Risk Screen - Adult Emergency 29-Aug-2021 09:07 [facility] Triage - EDon 08-30-2021 Triage - ED Quick Triage: Are You no Have You Given In The Last 6 Weeksno Are You Currently Breastfeedingno The patient and/or guardian verbally acknowledges placement for services into the following (when Urgent Care Service hours are operating):emergency department Chart Review: ARRIVAL INFORMATION Mode of Arrival: private vehicle CHIEF COMPLAINT SHERIN SANDOVAL is a Female patient with a chief complaint of flank pain (To ED per wheelchair c/o L flank pain. Reports that she was here yesterday for the same after having kidney stent placed last week. Was supposed to see urology to have stent removed this Saturday. Has been taking Oxycodone as prescribed. Last dose was around 0600. Rates pain 10.). Triage Date/Time: 30-Aug-2021 07:20 PATRICIA: 3 Pain Rating (0-10): 10 = Severe Pain location: L flank Vital Signs: Temperature: 98.1F ( 36.7C) taken temporal Blood Pressure: 158/119 Mean: Heart Rate: 101 Respiratory Rate: 16 Pulse Oximetry: 100% Weight: 279.9 pounds. Calculated 127.0 kg. Tyrell Coma Scale: Best Eye Response: (E4) spontaneous Best Motor Response: (M6) obeys commands Best Verbal Response: (V5) oriented Tyrell Score: 15 Cough lasting greater than 3 weeks: no Allergies: no Mask applied: yes Last menstrual period: unknown Patient has homicidal thoughts: no Symptom Notes: . Symptoms Are POSITIVE For: flank pain. Symptoms Are Negative For: anorexia, chills, dysuria, fever, frequency, hematuria, malaise, nausea and urgency. Risk Screens Suicide Risk Screen In the Past Month: Have you wished you were or wished you could go to sleep and not wake up no In the Past Month: Have you had any actual thoughts of killing yourself no In Your Lifetime: Have you ever done anything, started to do anything, or prepared to do anything to end your life no Roper Fall Scale Screening Has the patient fallen before (or is the patient in the ED as a result of a fall) has not had a fall Does the patient have an impaired gait does not have impaired gait Is the patient cognitively impaired not cognitively impaired Interventions: Roper Fall Interventions: LOW INTERVENTIONS: *patient oriented to surroundings and call system, * patient/family falls education completed and documented, *patients fall status communicated during bedside handoff, *whiteboard updated, *mode of toileting discussed with patient, *bed in low position with brakes locked, *call light in reach, * non-skid footwear TRAVEL HISTORY Travel History Coronavirus Screening: no exposure or symptoms Travel Exposure History: NO travel to International locations in the past 30 days PAIN Pain Scale Used: IVON Pain Rating (0-10): 10 = Severe Past Medical History: Past Medical History Reviewedyes Electronic Signatures: Didi Johnson (RN) (Signed 30-Aug-2021 07:26) Entered: Risk Screens, Pain, Travel History, Chart Review, Scores, Past Medical History Authored: Quick Triage, Risk Screens, Pain, Travel History, Chart Review, Scores, Past Medical History Last Updated: 30-Aug-2021 07:26 by Didi Johnson (MIHIR) Normal [facility] UA MICROSCOPICon 08-30-2021 BUDDING YEAST PRESENT Abnormal [facility] Comment on above: Performed By: #### U RINC #### [facility] [address] [place] [address] Mucus Ql (Urine sed) 3+ /LPF Normal [facility] Comment on above: Performed By: #### U RINC #### [facility] [address] [place] [address] RBC (U) [#/Vol] /uL Abnormal 0-5 [facility] Comment on above: Performed By: #### U RINC #### [facility] [address] [place] [address] WBC CLUMPS OCC Normal [facility] Comment on above: Performed By: #### U RINC #### [facility] [address] [place] [address] SQUAMOUS EPITH. CELLS 5 /HPF Normal [facility] Comment on above: Performed By: #### U RINC #### [facility] [address] [place] [address] WBC 65 /HPF Abnormal 0-5 [facility] Comment on above: Performed By: #### U RINC #### [facility] [address] [place] [address] URINALYSIS WITH CULTURE IF I NDICATEDon 08-30-2021 Appearance (U) HAZY Normal CLEAR [facility] Comment on above: Performed By: #### U ARFX ####[address] [address] Bilirubin Ql (U) Negative Normal NEGATIVE [facility] Comment on above: Performed By: #### U [place]FX ####[place] [address] Color (U) Yellow Normal STRAW,YELLO W [facility] Comment on above: Performed By: #### U ARFX ####[place] [address] Glucose Ql (U) Negative Normal NEGATIVE [facility] Comment on above: Performed By: #### U ARFX ####[address] [address] Hemoglobin Ql (U) LARGE(3+) Abnormal NEGATIVE [facility] Comment on above: Performed By: #### U ARFX ####[address] [address] Ketones Ql (U) 5(TRACE) Abnormal NEGATIVE [facility] Comment on above: Performed By: #### U ARFX ####[address] [address] Leukocyte esterase Test strip Ql (U) MODERATE(2+) Abnormal NEGATIVE [facility] Comment on above: Performed By: #### U ARFX ####[address] [address] Nitrite Ql (U) Negative Normal NEGATIVE [facility] Comment on above: Performed By: #### U ARFX ####[place] [address] pH (U) 6.0 [pH] Normal 5.0 - 8.0 [facility] Comment on above: Performed By: #### U ARFX ####[address] [address] Protein Ql (U) 100(2+) Abnormal NEGATIVE [facility] Comment on above: Performed By: #### U ARFX ####[address] [address] Specific gravity (U) [Rel density] 1.018 Normal 1.005 - 1.035 [facility] Comment on above: Performed By: #### U ARFX ####[address] [address] Urobilinogen (U) [Mass/Vol] mg/dL Normal 0.0 - 1.9 [facility] Comment on above: Performed By: #### U ARFX ####[address] [address] Color (U) Yellow See Below QZ-Jhhojde-T [employer] Work Phone: Comment on above: Reference Range: STR AW,YELLOW Glucose Ql (U) Negative NEGATIVE [employer] Work Phone: [phone] Ketones Ql (U) 5(TRACE) Abnormal NEGATIVE [employer] Phone: [phone] Leukocyte esterase Test strip Ql (U) MODERATE(2+) Abnormal NEGATIVE PS-Agmzmzv-V [employer] Work Phone: [phone] pH (U) 6.0 [pH] 5.0 - 8.0 IL-Mdwwbnk-F [employer] Work Phone: Protein (U) [Mass/Vol] 100(2+) Abnormal NEGATIVE NZ-Rdfqliu-L [employer] Work Phone: RBC (U) [#/Vol] LARGE(3+) Abnormal NEGATIVE -Urolog y-A [employer] Work Phone: [phone] Specific gravity (U) [Rel density] 1.018 1 See Below PT-Cwbnaso-R [employer] Work Phone: [phone] Comment on above: Reference Range: 1.0 05 - 1.035 URINALYSIS WITH CULTURE IF INDICATED Negative NEGATIVE MP-Urology- A [employer] Work Phone: URINALYSIS WITH CULTURE IF INDICATED <2.0 0.0 - 1.9 [facility]- A [employer] Work Phone: [phone] URINALYSIS WITH CULTURE IF INDICATED HAZY CLEAR MP-Urology- A [employer] Work Phone: [phone] URINE CULTURE,BACTERIALon URINE CULTURE,BACTERIAL PATIENT: SHERIN SANDOVAL LOCATION: [facility]#: [id number] : 89 AGE: SEX: F ORDERED BY: DIONICIO MEDINA SOURCE: URINE COLLECTED: 08/30/21 09:09 ANTIBIOTICS AT DELFIN.: RECEIVED : 08/30/21 16:46 SITE: R E S U L T S URINE CULTURE,BACTERIAL FINAL 08/31/21 09:15 NO SIGNIFICANT GROWTH. Normal [facility] Comment on above: Performed By: #### U [facility] #### [facility] [address] [place] [address] Urinalysis, Microscopicon Urinalysis, Microscopic 3+ DG-Yfczhon-W [employer] Work Phone: Urinalysis, Microscopic PRESENT Abnormal NC-Fioomnr-B [employer] Work Phone: [phone] Urinalysis, Microscopic 5 {/HPF} ES-Bwahyaw-W [employer] Work Phone: [phone] Urinalysis, Microscopic >182 Abnormal 0-5 PI-Voghmlb-I [employer] Work Phone: [phone] Urinalysis, Microscopic OCC HL-Cmqexui-W [employer] Work Phone: [phone] Urinalysis, Microscopic 65 {/HPF} Abnormal 0-5 NL-Tvnqdkj-B [employer] Work Phone: CBC AND DIFFERENTIALon 08-29 Basophils (Bld) [#/Vol] 0.10 10*3/uL Normal 0.00 - 0.10 [facility] Comment on above: Performed By: #### C BCDF ####[address] [address] Basophils/100 WBC (Bld) 1.0 % Normal 0.0 - 2.0 [facility] Comment on above: Performed By: #### C BCDF ####[address] [address] Eosinophils (Bld) [#/Vol] 0.30 10*3/uL Normal 0.00 - 0.70 [facility] Comment on above: Performed By: #### C BCDF ####[address] [address] Eosinophils/100 WBC (Bld) 3.1 % Normal 0.0 - 6.0 [facility] Comment on above: Performed By: #### C BCDF ####[address] [address] Erythrocyte distribution width (RBC) [Ratio] 15.2 % High 11.5 - 14.5 [facility] Comment on above: Performed By: #### C BCDF ####[address] [address] Hematocrit (Bld) [Volume fraction] 30.8 % Low 36.0 - 46.0 [facility] Comment on above: Performed By: #### C BCDF ####[address] [address] Hemoglobin (Bld) [Mass/Vol] 10.0 g/dL Low 12.0 - 16.0 [facility] Comment on above: Performed By: #### C BCDF ####[address] [address] Lymphocytes (Bld) [#/Vol] 2.20 10*3/uL Normal 1.20 - 4.80 [facility] Comment on above: Performed By: #### C BCDF ####[address] [address] Lymphocytes/100 WBC (Bld) 24.6 % Normal 13.0 - 44.0 [facility] Comment on above: Performed By: #### C BCDF ####[address] [address] MCHC (RBC) [Mass/Vol] 32.4 g/dL Normal 32.0 - 36.0 [facility] Comment on above: Performed By: #### C BCDF ####[address] [address] MCV (RBC) [Entitic vol] 70 fL Low 80 - 100 [facility] Comment on above: Performed By: #### C BCDF ####[address] [address] Monocytes (Bld) [#/Vol] 0.50 10*3/uL Normal 0.10 - 1.00 [facility] Comment on above: Performed By: #### C BCDF ####[address] [address] Monocytes/100 WBC (Bld) 5.2 % Normal 2.0 - 10.0 [facility] Comment on above: Performed By: #### C BCDF ####[address] [address] Neutrophils (Bld) [#/Vol] 5.90 10*3/uL Normal 1.20 - 7.70 [facility] Comment on above: Result Comment: Perc ent differential counts (%) should be interpreted in the context of the absolute cell counts (cells/L). Performed By: #### C BCDF ####[address] [address] Neutrophils/100 WBC (Bld) 66.1 % Normal 40.0 - 80.0 [facility] Comment on above: Performed By: #### C BCDF ####[address] [address] Platelets (Bld) [#/Vol] 448 10*3/uL Normal 150 - 450 [facility] Comment on above: Performed By: #### C BCDF ####[address] [address] RBC 4.42 x10E12/L Normal 4.00 - 5.20 [facility] Comment on above: Performed By: #### C BCDF ####[address] [address] WBC (Bld) [#/Vol] 8.8 10*3/uL Normal 4.4 - 11.3 [facility] Comment on above: Performed By: #### C BCDF ####[address] [address] COMPREHENSIVE PANELon 2021 Albumin [Mass/Vol] 4.1 g/dL Normal 3.4 - 5.0 [facility] Comment on above: Performed By: #### C MP ####[address] [address] ALP [Catalytic activity/Vol] 62 U/L Normal 33 - 110 [facility] Comment on above: Performed By: #### C MP ####[address] [address] ALT [Catalytic activity/Vol] 13 U/L Normal 7 - 45 [facility] Comment on above: Result Comment: Mackenzie ents treated with Sulfasalazine may generate falsely decreased results for ALT. Performed By: #### C MP ####[address] [address] Anion gap [Moles/Vol] 11 mmol/L Normal 10 - 20 [facility] Comment on above: Performed By: #### C MP ####[address] [address] AST [Catalytic activity/Vol] 13 U/L Normal 9 - 39 [facility] Comment on above: Performed By: #### C MP ####[address] [address] Bilirubin [Mass/Vol] 0.4 mg/dL Normal 0.0 - 1.[address] [facility] Comment on above: Performed By: #### C MP ####[address] [address] Calcium [Mass/Vol] 8.8 mg/dL Normal 8.6 - 10.3 [facility] Comment on above: Performed By: #### C MP ####[address] [address] Chloride [Moles/Vol] 105 mmol/L Normal 98 - [address] [facility] Comment on above: Performed By: #### C MP ####[address] [address] Creatinine [Mass/Vol] 0.75 mg/dL Normal 0.50 - 1.05 [facility] Comment on above: Performed By: #### C MP ####[address] [address] eGFR FEMALE >90 Normal >90 [facility] Comment on above: Result Comment: CALC ULATIONS OF ESTIMATED GFR ARE PERFORMED USING THE 2020 CKD-EPI STUDY REFIT EQUATION WITHOUT THE RACE VARIABLE FOR THE IDMS-TRACEABLE CREATININE METHODS. https://jasn.asnjournals.org/content/early//ASN.107537 9797 Performed By: #### C MP ####[address] [address] Glucose [Mass/Vol] 96 mg/dL Normal 74 - 99 [facility] Comment on above: Performed By: #### C MP ####[address] [address] HCO3 (Bld) [Moles/Vol] 27 mmol/L Normal 21 - 32 [facility] Comment on above: Performed By: #### C MP ####[address] [address] Potassium [Moles/Vol] 4.0 mmol/L Normal 3.5 - 5.3 [facility] Comment on above: Performed By: #### C MP ####[address] [address] Protein [Mass/Vol] 7.3 g/dL Normal 6.4 - 8.2 [facility] Comment on above: Performed By: #### C MP ####[address] [address] Sodium [Moles/Vol] 139 mmol/L Normal 136 - 145 [facility] Comment on above: Performed By: #### C MP ####[place] [id number] Urea nitrogen [Mass/Vol] 14 mg/dL Normal 6 - 23 [facility] Comment on above: Performed By: #### C MP ####[address] [address] CORONAVIRUS 2019, SCREEN ASY MPTOMATICon 08-29-2021 Lab Specimen Source Nasal, Nasopharyngeal Normal [facility] Comment on above: Order Comment: TEST CORONAVIRUS 2018, SCREEN ASYMPTOMATIC WAS CANCELLED, 10/02/2021 12:58TEST NOT COMPLETED. Performed By: #### T SH2 #### [address] [address] [address] ABDOMEN AND PELVIS WO CON TRASTon 08-29-2021 CT ABDOMEN AND PELVIS WO CONTRAST STUDY: CT Abdomen and Pelvis without IV Contrast; 08/29/2021 9:50 AM INDICATION: Severe left flank pain. Stent placed a few days ago. COMPARISON: CT AP 08/26/2021, 08/25/2021. ACCESSION NUMBER(S): [id number] ORDERING CLINICIAN: RODRIGO DAMIAN DO TECHNIQUE: CT of the abdomen and pelvis was performed. Contiguous axial images were obtained at 3 mm slice thickness through the abdomen and pelvis. Coronal and sagittal reconstructions at 3 mm slice thickness were performed. No intravenous contrast was administered. Automated mA/kV exposure control was utilized and patient examination was performed in strict accordance with principles of ALARA. FINDINGS: Please note that the evaluation of vessels, lymph nodes and organs is limited without intravenous contrast. LOWER CHEST: No cardiomegaly. No pericardial effusion. Lung bases are clear. ABDOMEN: LIVER: No hepatomegaly. Smooth surface contour. Liver demonstrates fatty morphology. BILE DUCTS: No intrahepatic or extrahepatic biliary ductal dilatation. GALLBLADDER: The gallbladder is unremarkable. STOMACH: No abnormalities identified. PANCREAS: No masses or ductal dilatation. SPLEEN: No splenomegaly or focal splenic lesion. ADRENAL GLANDS: No thickening or nodules. KIDNEYS AND URETERS: Right kidney is unremarkable. Left kidney demonstrates pigtail ureteral stent which appears appropriate in anatomic position. The left kidney demonstrates mild hydronephrosis and periureteral stranding . There are small nonobstructive calculi lower pole left kidney measuring up to 4 mm. PELVIS: BLADDER: No abnormalities identified. REPRODUCTIVE ORGANS: No abnormalities identified. BOWEL: No abnormalities identified. The appendix is normal. VESSELS: No abnormalities identified. Abdominal aorta is normal in caliber. PERITONEUM/RETROPERITONEU M/LYMPH NODES: No free fluid. No pneumoperitoneum. No lymphadenopathy. ABDOMINAL WALL: No abnormalities identified. SOFT TISSUES: No abnormalities identified. BONES: No acute fracture or aggressive osseous lesion. IMPRESSION: Left pigtail ureteral stent in appropriate anatomic position. Minimal left hydronephrosis and periureteral stranding . No definitive ureteral calculi. Please correlate for ejection/pyonephritis. Small nonobstructive calculi lower pole left kidney. Signed by Aroldo Salguero DO Electronically signed by: YOSVANY SALGUERO DO Normal [facility] CT Abdomen and Pelvis withou t Contraston 08-29-2021 CT Abdomen and Pelvis WO contrast Normal QA-Drktoiy-F [employer] Work Phone: Complete Blood Count + Diffe rentialon 08-29-2021 Basophils/100 WBC (Bld) 1.0 % 0.0 - 2.0 NE-Kfcmeye-S [employer] Work Phone: Erythrocyte distribution width (RBC) [Ratio] 15.2 % above high threshold See Below RL-Hhbyvmg-[employer] Work Phone: Comment on above: Reference Range: 11. 5 - 14.5 Hematocrit (Bld) [Volume fraction] 30.8 % below low threshold See Below VK-Gesuiyr-N [employer] Phone: Comment on above: Reference Range: 36. 0 - 46.0 Hemoglobin (Bld) [Mass/Vol] 10.0 g/dL below low threshold See Below CD-Eausoll-[employer] Work Phone: Comment on above: Reference Range: 12. 0 - 16.0 Lymphocytes/100 WBC (Bld) 24.6 % See Below PX-Zmmkbsf-[employer] Work Phone: Comment on above: Reference Range: 13. 0 - 44.0 MCHC (RBC) [Mass/Vol] 32.4 g/dL See Below [employer] [facility] Work Phone: Comment on above: Reference Range: 32. 0 - 36.0 MCV (RBC) [Entitic vol] 70 fL below low threshold 80 - 100 [employer] Work Phone: [phone] Monocytes/100 WBC (Bld) 5.2 % 2.0 - 10.0 LD-Muqbequ-U [employer] Work Phone: [phone] Neutrophils/100 WBC (Bld) 66.1 % See Below OK-Hfwgxop-K [employer] Work Phone: [phone] Comment on above: Reference Range: 40. 0 - 80.0 Platelets (Bld) [#/Vol] 448 10*3/uL 150 - 450 NW-Ikjklmn-D [employer] Work Phone: [phone] RBC (Bld) [#/Vol] 4.42 {x10E12/L} See Below [employer]-A [employer] Work Phone: [phone] Comment on above: Reference Range: 4.0 0 - 5.20 WBC (Bld) [#/Vol] 8.8 10*3/uL 4.4 - 11.3 -Uro logy-A [employer] Work Phone: [phone] Complete Blood Count + Differential 0.10 {x10E9/L} See Below XG-Chfisry-H [employer] Work Phone: Comment on above: Reference Range: 0.0 0 - 0.10 Complete Blood Count + Differential 0.30 {x10E9/L} See Below IR-Nplhubl-R [employer] Work Phone: [phone] Comment on above: Reference Range: 0.0 0 - 0.70 Complete Blood Count + Differential 0.50 {x10E9/L} See Below FR-Wysjade-P [employer] Phone: Comment on above: Reference Range: 0.1 0 - 1.00 Complete Blood Count + Differential 2.20 {x10E9/L} See Below IJ-Axlgntj-H [employer] Phone: [phone] Comment on above: Reference Range: 1.2 0 - 4.80 Complete Blood Count + Differential 5.90 {x10E9/L} See Below NE-Alrzmzt-R [employer] Work Phone: [phone] Comment on above: Reference Range: 1.2 0 - 7.70 Percent differential counts (%) should be interpreted in the context of the absolute cell counts (cells/L). Complete Blood Count + Differential 3.1 % 0.0 - 6.0 HH-Artkmeu-B [employer] Work Phone: Laboratory - Chemistry and C hemistry - challengeon 08-29-2021 Albumin BCP dye [Mass/Vol] 4.1 g/dL 3.4 - 5.0 II-Jddcyxl-R [employer] Work Phone: ALP [Catalytic activity/Vol] 62 U/L 33 - 110 RH-Ouotbwt-C [employer] Work Phone: ALT With P-5'-P [Catalytic activity/Vol] 13 U/L 7 - 45 BA-Uehawbi-L [employer] Work Phone: Comment on above: Patients treated wit h Sulfasalazine may generate falsely decreased results for ALT. Anion gap [Moles/Vol] 11 mmol/L 10 - 20 - Urology-A [employer] Work Phone: AST With P-5'-P [Catalytic activity/Vol] 13 U/L 9 - 39 ZU-Nuirhnb-R [employer] Work Phone: Bilirubin [Mass/Vol] 0.4 mg/dL 0.0 - 1.2 MP[facility] [employer] Work Phone: Calcium [Mass/Vol] 8.8 mg/dL 8.6 - 10.3 -Uro logy-A [employer] Work Phone: [phone] Chloride [Moles/Vol] 105 mmol/L 98 - 107 MP-U rology-A [employer] Work Phone: CO2 [Moles/Vol] 27 mmol/L 21 - 32 MP-Urolog y-A [employer] Work Phone: Creatinine [Mass/Vol] 0.75 mg/dL See Below - Urology-A [employer] Work Phone: Comment on above: Reference Range: 0.5 0 - 1.05 Glucose [Mass/Vol] 96 mg/dL 74 - 99 MP-Uro logy-A [employer] Work Phone: Potassium [Moles/Vol] 4.0 mmol/L 3.5 - 5.3 MP- Urology-A [employer] Work Phone: [phone] Protein [Mass/Vol] 7.3 g/dL 6.4 - 8.2 MP-Uro logy-A [employer] Work Phone: [phone] Sodium [Moles/Vol] 139 mmol/L 136 - 145 MP-Uro logy-A [employer] Work Phone: [phone] Urea nitrogen [Mass/Vol] 14 mg/dL 6 - 23 HT-Nghblkx-S [employer] Work Phone: [phone] No Panel Informationon 08-29 FEW WA-Etnxdfe-N [employer] Work Phone: SEE BELOW NY-Lakrlmr-N [employer] Phone: [phone] >90 >90 NI-Ixqrxrz-L [employer] Phone: Comment on above: CALCULATIONS OF SHY MATED GFR ARE PERFORMED USING THE 2020 CKD-EPI STUDY REFIT EQUATION WITHOUT THE RACE VARIABLE FOR THE IDMS-TRACEABLE CREATININE METHODS.https://jasn.asnjournals.org/content// N.9698332622 Provider Note - ED v3on 08-11 Provider Note - ED v3 Provider Note: Chart Review: ED NOTES ED NOTES: History of Present Illness: 26-year-old female presents with persistent left back pain. Patient was discharged 2 days ago after having a ureteral stent placed for obstructing kidney stone. Patient states that her pain has been worsening since that time. States it is now unbearable. Aching in nature. Nausea without vomiting. Denies any fever or chills. Has been urinating however has not this morning. Denies any chest pain, shortness of breath, changes in bowel habits. Past Medical History: Anxiety, kidney stone Past surgical History: Thyroidectomy, ureteral stent Family history: Reviewed and not pertinent to complaint Social history: Denies any drugs, alcohol, tobacco abuse. REVIEW OF SYSTEMS: Pertinent negatives and positives noted in the HPI. Otherwise, a complete review of system was negative. PHYSICAL EXAM: Appearance: Alert. In distress secondary to left back pain. Skin: Intact, dry skin, no lesions, rash, petechiae or purpura. HENT: Normocephalic, atraumatic. Nares patent. No intraoral lesions. Neck: Supple, without meningismus. Trachea at midline. No lymphadenopathy. Pulmonary: Clear bilaterally with good chest wall excursion. No rales, rhonchi or wheezing. No accessory muscle use or stridor. Cardiac: Regular rate and rhythm, no rubs, murmurs, or gallops. Abdomen: Abdomen is soft, nontender, and nondistended. No palpable organomegaly. No rebound or guarding. Left CVA tenderness. Nonsurgical abdomen Genitourinary: Exam deferred. Musculoskeletal: Full range of motion. Pulses full and equal. No cyanosis, clubbing, or edema. Psychiatric: Appropriate mood and affect. HISTORY OF PRESENTING ILLNESS SHERIN is a 26 year old Female and was seen by me at 29-Aug-2021 09:01 for a chief complaint of flank pain (To ED per wheelchair c/o intermittent L flank pain since Saturday08/25/21. She was admitted and had a stent placed for 3 known stones. She reports that pain is worse this am and has not subsided.)(1). Triage Information: Most recent Vital Sign Value Date Temp (F): 98.2 08-29-2021 09:03 Temp (C): 36.7 08-29-2021 09:03 Heart Rate (beats/min): 94 08-29-2021 09:03 Respirations (breaths/min): 18 08-29-2021 09:03 SpO2 (%): 98 08-29-2021 09:03 BP Systolic (mm Hg): 145 08-29-2021 09:03 BP Diastolic (mm Hg): 113 08-29-2021 09:03 PAST MEDICAL HISTORY ALLERGIES/INTOLERANCES: No Known Allergies HEALTH HISTORY: Medical History Name:Iron deficiency anemia Code:D50.9 Name:Dental caries Code:K02.9 OUTPATIENT MEDICATIONS: Home Medications Review Status for Reconciliation: N/A Med Status: Patient Currently Takes Medications Drug Name: NuvaRing 0.120 mg-0.015 mg/24 hours vaginal ring Instructions: 1 each vaginal every 4 weeks as directed Drug Name: fluconazole 200 mg oral tablet Instructions: 1 tab(s) orally every 24 hours Drug Name: traMADol 50 mg oral tablet Instructions: 1 tab(s) orally every 6 hours, As needed, Pain - Mod (4-6) SIGNIFICANT EVENTS: Clinical Events Description:Surgical Procedure Additional Notes:1. CYSTO L RPG L URETER W/CLAYTON L STENT; Past Medical History Description:anxiety Description:situational anxiety Description:kidney stones Description:thyroid nodule Past Surgical History Description:TONSILLECTOMY CRITICAL CARE RESULTS: Recent Lab Results: I have reviewed these laboratory results: Urinalysis 29-Aug-2021 10:32:00 ResultValue Color, Urine Hortencia Reference Range: STRAW,YELLOW Appearance, Urine HAZY Specific Foss, Urine 1.026 pH, Urine 6.0 Protein, Urine 100(2+) A Glucose, Urine NEGATIVE Blood, Urine LARGE(3+) A Ketones, Urine NEGATIVE Bilirubin, Urine NEGATIVE Urobilinogen, Urine <2.0 Nitrite, Urine Negative Leukocyte Esterase, Urine MODERATE(2+) A Urinalysis, Microscopic 29-Aug-2021 10:32:00 ResultValue White Cells 165 A WBC Clumps OCC Red Blood Cells >182 A Mucous 4+ Complete Blood Count + Differential 29-Aug-2021 09:12:00 ResultValue White Blood Cell Count 8.8 Red Blood Cell Count 4.42 HGB 10.0 L HCT 30.8 L MCV 70 L MCHC 32.4 PLT 448 RDW-CV 15.2 H Neutrophil % 66.1 Lymphocyte % 24.6 Monocyte % 5.2 Eosinophil % 3.1 Basophil % 1.0 Neutrophil Count 5.90 Lymphocyte Count 2.20 Monocyte Count 0.50 Eosinophil Count 0.30 Basophil Count 0.10 Comprehensive Metabolic Panel 29-Aug-2021 09:12:00 ResultValue Glucose, Serum 96 NA 139 K 4.0 CL 105 Bicarbonate, Serum 27 Anion Gap, Serum 11 BUN 14 CREAT 0.75 GFR Female >90 Calcium, Serum 8.8 ALB 4.1 ALKP 62 T Pro 7.3 T Bili 0.4 Alanine Aminotransferase, Serum 13 Aspartate Transaminase, Serum 13 RBC Morphology 29-Aug-2021 09:12: (more content not included)... Normal [facility] RED CELL MORPHOLOGYon 2021 OVALOCYTES FEW Normal [facility] Comment on above: Performed By: #### M ORP2 ####[place] [address] RBC morphology finding Nom (Bld) SEE BELOW [facility] Comment on above: Performed By: #### M ORP2 ####[address] [address] Risk Screen - Adult Emergenc yon 08-29-2021 Risk Screen - Adult Emergency Preferred Language: Preferred Language: Preferred Language for Discussing Health Care (patient/designee)Mozambican Advanced Directives: Advance Directive/DNRno Family Violence Adult: Abuse Screen: Are you or have you been threatened or abused physically, emotionally, or sexually by anyoneno Learning Assessment (Patient): Learning Assessment (Patient): Patient is Able to be Assessed for Learningyes Factors Influencing Readiness to Learnacuteness of illness Factors that Impact Ability to Learnnone Devices/Methods Used to Communicatenone Learning Preferencesverbal instruction; written material Cultural Considerationsnone Developmental Considerationsnone Oriental Orthodox Considerationsnone Learning Assessment (Other Learner): Learning Assessment (Other Learner): Other learner availableno Pressure Injury/TB/Substance: Pressure Injury: Pressure Injury Present on Admissionno Do you have a coughno Smoking Statusnever smoker Alcohol Usedenies Drug Usedenies Admission Risk Screen: Significant IndicatorsComplete CAGE: CAGE: Is this an injured patient at a Trauma Center ([facility]/[place]/ [place]): no Electronic Signatures: Didi Johnson) (Signed 29-Aug-2021 09:08) Authored: Preferred Language, Advanced Directives, Family Violence Adult, Learning Assessment (Patient), Learning Assessment (Other Learner), Pressure Injury/TB/Substance, Pressure Injury, CAGE Last Updated: 29-Aug-2021 09:08 by Didi Johnson (MIHIR) [facility] Triage - EDon 08-29-2021 Triage - ED Quick Triage: Are You no Have You Given In The Last 6 Weeksno Are You Currently Breastfeedingno The patient and/or guardian verbally acknowledges placement for services into the following (when Urgent Care Service hours are operating):emergency department Chart Review: ARRIVAL INFORMATION Mode of Arrival: private vehicle CHIEF COMPLAINT SHERIN SANDOVAL is a Female patient with a chief complaint of flank pain (To ED per wheelchair c/o intermittent L flank pain since Saturday08/25/21. She was admitted and had a stent placed for 3 known stones. She reports that pain is worse this am and has not subsided.). Triage Date/Time: 29-Aug-2021 09:03 PATRICIA: 3 Pain Rating (0-10): 10 = Severe Pain location: L flank Vital Signs: Temperature: 98.2F ( 36.7C) taken temporal Blood Pressure: 145/113 Mean: Heart Rate: 94 Respiratory Rate: 18 Pulse Oximetry: 98% on room air, no respiratory support. Weight: 293.2 pounds. Calculated 133.0 kg. Tyrell Coma Scale: Best Eye Response: (E4) spontaneous Best Motor Response: (M6) obeys commands Best Verbal Response: (V5) oriented Mulliken Score: 15 Cough lasting greater than 3 weeks: no Allergies: no Mask applied: yes Last menstrual period: 29-Aug-2021 unknown Patient has homicidal thoughts: no Symptoms Are Negative For: anorexia, chills, dysuria, fever, flank pain, frequency, hematuria, malaise, nausea and urgency. Risk Screens Suicide Risk Screen In the Past Month: Have you wished you were or wished you could go to sleep and not wake up no In the Past Month: Have you had any actual thoughts of killing yourself no In Your Lifetime: Have you ever done anything, started to do anything, or prepared to do anything to end your life no Roper Fall Scale Screening Has the patient fallen before (or is the patient in the ED as a result of a fall) has not had a fall Does the patient have an impaired gait does not have impaired gait Is the patient cognitively impaired not cognitively impaired Interventions: Roper Fall Interventions: LOW INTERVENTIONS: *patient oriented to surroundings and call system, * patient/family falls education completed and documented, *patients fall status communicated during bedside handoff, *whiteboard updated, *mode of toileting discussed with patient, *bed in low position with brakes locked, *call light in reach, * non-skid footwear TRAVEL HISTORY Travel History Coronavirus Screening: no exposure or symptoms Travel Exposure History: NO travel to International locations in the past 30 days PAIN Pain Scale Used: IVON Pain Rating (0-10): 10 = Severe Past Medical History: Past Medical History Reviewedyes Electronic Signatures: Didi Johnson (RN) (Signed 29-Aug-2021 09:07) Entered: Risk Screens, Pain, Travel History, Chart Review, Scores, Past Medical History Authored: Quick Triage, Risk Screens, Pain, Travel History, Chart Review, Scores, Past Medical History Last Updated: 29-Aug-2021 09:07 by Didi Johnson (RN) Normal [facility] UA MICROSCOPICon 08-29-2021 Mucus Ql (Urine sed) 4+ /LPF Normal [facility] Comment on above: Performed By: #### U AMIC ####[place] [address] RBC (U) [#/Vol] /uL Abnormal 0-5 [facility] Comment on above: Performed By: #### U AMIC ####[address] [address] WBC 165 /HPF Abnormal 0-5 [facility] Comment on above: Performed By: #### U AMIC ####[address] [address] WBC CLUMPS OCC Normal [facility] Comment on above: Performed By: #### U AMIC ####[address] [address] URINALYSISon 08-29-2021 Appearance (U) HAZY Normal CLEAR [facility] Comment on above: Performed By: #### L ACT #### [place] [id number] Bilirubin Ql (U) Negative Normal NEGATIVE [facility] Comment on above: Performed By: #### L ACT #### [place] [address] Color (U) Hortencia Normal STRAW,YELLO W [facility] Comment on above: Performed By: #### L ACT #### [place] [address] Glucose Ql (U) Negative Normal NEGATIVE [facility] Comment on above: Performed By: #### L ACT #### [place] [address] Hemoglobin Ql (U) LARGE(3+) Abnormal NEGATIVE [facility] Comment on above: Performed By: #### L ACT #### [place] [address] Ketones Ql (U) Negative Normal NEGATIVE [facility] Comment on above: Performed By: #### L ACT #### [place] [address] Leukocyte esterase Test strip Ql (U) MODERATE(2+) Abnormal NEGATIVE [facility] Comment on above: Performed By: #### L ACT #### [place] [address] Nitrite Ql (U) Negative Normal NEGATIVE [facility] Comment on above: Performed By: #### L ACT #### [place] [address] pH (U) 6.0 [pH] Normal 5.0 - 8.0 [facility] Comment on above: Performed By: #### L ACT #### [place] [address] Protein Ql (U) 100(2+) Abnormal NEGATIVE [facility] Comment on above: Performed By: #### L ACT #### [place] [address] Specific gravity (U) [Rel density] 1.026 Normal 1.005 - 1.035 [facility] Comment on above: Performed By: #### L ACT #### [place] [address] Urobilinogen (U) [Mass/Vol] mg/dL Normal 0.0 - 1.9 [facility] Comment on above: Performed By: #### L ACT #### [facility] [address] [place] [address] Urinalysison 08-29-2021 Color (U) Hortencia See Below UD-Wjfaowv-E [employer] Work Phone: Comment on above: Reference Range: STR AW,YELLOW Glucose Ql (U) Negative NEGATIVE -Urology -A [employer] Work Phone: Ketones Ql (U) Negative NEGATIVE ION Signaturey -A [employer] Work Phone: Leukocyte esterase Test strip Ql (U) MODERATE(2+) Abnormal NEGATIVE EE-Kfnzzxy-A [employer] Phone: pH (U) 6.0 [pH] 5.0 - 8.0 SM-Foyszgh-G [employer] Work Phone: Protein (U) [Mass/Vol] 100(2+) Abnormal NEGATIVE PH-Aclbgvj-N [employer] Work Phone: RBC (U) [#/Vol] LARGE(3+) Abnormal NEGATIVE [employer]-A [employer] Work Phone: Specific gravity (U) [Rel density] 1.026 1 See Below JF-Zdquxly-I [employer] Work Phone: Comment on above: Reference Range: 1.0 05 - 1.035 Urinalysis Negative NEGATIVE CE-Yuifncc-K [employer] Work Phone: Urinalysis <2.0 0.0 - 1.9 TL-Cslkiyf-L [employer] Work Phone: Urinalysis HAZY CLEAR TO-Vhzvlzp-D [employer] Work Phone: Urinalysis, Microscopicon Urinalysis, Microscopic 4+ NI-Ofcronp-D [employer] Work Phone: Urinalysis, Microscopic >182 Abnormal 0-5 KG-Uwomsvg-V [employer] Work Phone: Urinalysis, Microscopic OCC WB-Trhwpht-Z [facility] Work Phone: [phone] Urinalysis, Microscopic 165 {/HPF} Abnormal 0-5 YF-Dpgvbgf-Q [facility] Work Phone: [phone] BASIC METABOLIC PANELon 04- Anion gap [Moles/Vol] 10 mmol/L Normal 10 - 20 [facility] Comment on above: Performed By: #### M ORP2 #### [address] [address] Calcium [Mass/Vol] 8.0 mg/dL Low 8.6 - 10.3 [facility] Comment on above: Performed By: #### M ORP2 #### [address] [address] Chloride [Moles/Vol] 107 mmol/L Normal 98 - [address] [facility] Comment on above: Performed By: #### M ORP2 #### [address] [address] Creatinine [Mass/Vol] 0.64 mg/dL Normal 0.50 - 1.05 [facility] Comment on above: Performed By: #### M ORP2 #### [address] [address] eGFR FEMALE >90 Normal >90 [facility] Comment on above: Result Comment: CALC ULATIONS OF ESTIMATED GFR ARE PERFORMED USING THE 2020 CKD-EPI STUDY REFIT EQUATION WITHOUT THE RACE VARIABLE FOR THE IDMS-TRACEABLE CREATININE METHODS. https://jasn.asnjournals.org/content/early/ASN.495129 2203 Performed By: #### M ORP2 #### [address] [address] Glucose [Mass/Vol] 87 mg/dL Normal 74 - 99 [facility] Comment on above: Performed By: #### M ORP2 #### [address] [address] HCO3 (Bld) [Moles/Vol] 25 mmol/L Normal 21 - 32 [facility] Comment on above: Performed By: #### M ORP2 #### [address] [address] Potassium [Moles/Vol] 3.5 mmol/L Normal 3.5 - 5.3 [facility] Comment on above: Performed By: #### M ORP2 #### [address] [address] Sodium [Moles/Vol] 138 mmol/L Normal 136 - 145 [facility] Comment on above: Performed By: #### M ORP2 #### [address] [address] Urea nitrogen [Mass/Vol] 7 mg/dL Normal 6 - 23 [facility] Comment on above: Performed By: #### M ORP2 #### [address] [address] CBC AND DIFFERENTIALon 08-27 Basophils (Bld) [#/Vol] 0.10 10*3/uL Normal 0.00 - 0.10 [facility] Comment on above: Performed By: #### L ACT #### [address] [address] Basophils/100 WBC (Bld) 1.1 % Normal 0.0 - 2.0 [facility] Comment on above: Performed By: #### L ACT #### [address] [address] Eosinophils (Bld) [#/Vol] 0.10 10*3/uL Normal 0.00 - 0.70 [facility] Comment on above: Performed By: #### L ACT #### [address] [address] Eosinophils/100 WBC (Bld) 0.7 % Normal 0.0 - 6.0 [facility] Comment on above: Performed By: #### L ACT #### [address] [address] Erythrocyte distribution width (RBC) [Ratio] 15.3 % High 11.5 - 14.5 [facility] Comment on above: Performed By: #### L ACT #### [address] [address] Hematocrit (Bld) [Volume fraction] 26.8 % Low 36.0 - 46.0 [facility] Comment on above: Performed By: #### L ACT #### [address] [address] Hemoglobin (Bld) [Mass/Vol] 8.6 g/dL Low 12.0 - 16.0 [facility] Comment on above: Performed By: #### L ACT #### [address] [address] Lymphocytes (Bld) [#/Vol] 2.20 10*3/uL Normal 1.20 - 4.80 [facility] Comment on above: Performed By: #### L ACT #### [address] [address] Lymphocytes/100 WBC (Bld) 23.7 % Normal 13.0 - 44.0 [facility] Comment on above: Performed By: #### L ACT #### [address] [address] MCHC (RBC) [Mass/Vol] 32.0 g/dL Normal 32.0 - 36.0 [facility] Comment on above: Performed By: #### L ACT #### [address] [address] MCV (RBC) [Entitic vol] 71 fL Low 80 - 100 [facility] Comment on above: Performed By: #### L ACT #### [address] [address] Monocytes (Bld) [#/Vol] 0.60 10*3/uL Normal 0.10 - 1.00 [facility] Comment on above: Performed By: #### L ACT #### [address] [address] Monocytes/100 WBC (Bld) 6.2 % Normal 2.0 - 10.0 [facility] Comment on above: Performed By: #### L ACT #### [address] [address] Neutrophils (Bld) [#/Vol] 6.30 10*3/uL Normal 1.20 - 7.70 [facility] Comment on above: Result Comment: Perc ent differential counts (%) should be interpreted in the context of the absolute cell counts (cells/L). Performed By: #### L ACT #### [address] [address] Neutrophils/100 WBC (Bld) 68.3 % Normal 40.0 - 80.0 [facility] Comment on above: Performed By: #### L ACT #### [address] [address] Platelets (Bld) [#/Vol] 354 10*3/uL Normal 150 - 450 [facility] Comment on above: Performed By: #### L ACT #### [address] [address] RBC 3.79 x10E12/L Low 4.00 - 5.20 [facility] Comment on above: Performed By: #### L ACT #### [address] [address] WBC (Bld) [#/Vol] 9.2 10*3/uL Normal 4.4 - 11.3 [facility] Comment on above: Performed By: #### L ACT #### [address] [address] Complete Blood Count + Diffe rentialon 08-27-2021 Basophils/100 WBC (Bld) 1.1 % 0.0 - 2.0 AY-Ppexdsg-T [facility] Work Phone: Erythrocyte distribution width (RBC) [Ratio] 15.3 % above high threshold See Below YV-Onvghhr-C [facility] Work Phone: Comment on above: Reference Range: 11. 5 - 14.5 Hematocrit (Bld) [Volume fraction] 26.8 % below low threshold See Below JB-Yttusbj-Z [facility] Work Phone: Comment on above: Reference Range: 36. 0 - 46.0 Hemoglobin (Bld) [Mass/Vol] 8.6 g/dL below low threshold See Below TN-Rojtzcp-O [facility] Work Phone: Comment on above: Reference Range: 12. 0 - 16.0 Lymphocytes/100 WBC (Bld) 23.7 % See Below JY-Rlbivnl-C [employer] Work Phone: Comment on above: Reference Range: 13. 0 - 44.0 MCHC (RBC) [Mass/Vol] 32.0 g/dL See Below [employer] [facility]-A [employer] Work Phone: [phone] Comment on above: Reference Range: 32. 0 - 36.0 MCV (RBC) [Entitic vol] 71 fL below low threshold 80 - 100 YJ-Twilaky-X [employer] Work Phone: [phone] Monocytes/100 WBC (Bld) 6.2 % 2.0 - 10.0 IT-Wvzvqmy-U [employer] Work Phone: [phone] Neutrophils/100 WBC (Bld) 68.3 % See Below CN-Nizytqy-N [employer] Work Phone: Comment on above: Reference Range: 40. 0 - 80.0 Platelets (Bld) [#/Vol] 354 10*3/uL 150 - 450 CF-Moldlpf-M [facility] Work Phone: [phone] RBC (Bld) [#/Vol] 3.79 {x10E12/L} below low threshold See Below IG-Foxqdwv-P [facility] Work Phone: Comment on above: Reference Range: 4.0 0 - 5.20 WBC (Bld) [#/Vol] 9.2 10*3/uL 4.4 - 11.3 MP-Uro logy-A [facility] Work Phone: Complete Blood Count + Differential 0.10 {x10E9/L} See Below JX-Kidzeyz-S [facility] Work Phone: Comment on above: Reference Range: 0.0 0 - 0.10 Reference Range: 0.0 0 - 0.70 Complete Blood Count + Differential 0.60 {x10E9/L} See Below SI-Eoosaqr-V [employer] Work Phone: Comment on above: Reference Range: 0.1 0 - 1.00 Complete Blood Count + Differential 2.20 {x10E9/L} See Below IZ-Omugvxg-S [employer] Work Phone: Comment on above: Reference Range: 1.2 0 - 4.80 Complete Blood Count + Differential 6.30 {x10E9/L} See Below OO-Tryclou-M [facility] Work Phone: Comment on above: Reference Range: 1.2 0 - 7.70 Percent differential counts (%) should be interpreted in the context of the absolute cell counts (cells/L). Complete Blood Count + Differential 0.7 % 0.0 - 6.0 OE-Eqwxxsg-N [facility] Work Phone: Discharge [id number] Discharge Profile2 Discharge Orders: Anticipated Discharge Date: Anticipated Discharge [id number] Anticipated Discharge Time07:53 DNAR: Code Status at Discharge: Full Code Activity: activity as tolerated. May shower. May return to school/work Instructions: Diet: Dietresume normal diet Additional Orders: Additional Instructions return to er if pain worsens Provider FINAL REVIEW of Orders: Final Review: Final Review of Medication Reconciliation and Orders Completedby Physician Reviewing ProviderAlan Draper MD at 27-Aug-2021 07:56:25 Appointments: Follow-Up Appointment 01: Physician/Dept/ServiceELMER Call to Schedule in1 week CommentsGave paper for her to look over Follow-Up Appointment 02: Physician/Dept/ServiceDr Nichole Chopra Call to Schedule in2 weeks [id number] [place] [address] [place], [place] [address]Mike [place] Phone [phone] Janice will call and make her own appointment. Electronic Signatures: Chastity Buckley (YFN) (Signed 27-Aug-2021 08:03) Authored: Discharge Orders, Appointments Alan Draper) (Signed 27-Aug-2021 07:56) Authored: Discharge Orders, Provider FINAL REVIEW of Orders, Appointments, Gold Form - Process Manufacturing Engineer Summary Last Updated: 27-Aug-2021 08:03 by Chastity Buckley (YFN) Normal [facility] Laboratory - Chemistry and C hemistry - challengeon 08-27-2021 Anion gap [Moles/Vol] 10 mmol/L 10 - 20 MP- Urology-A [facility] Work Phone: Calcium [Mass/Vol] 8.0 mg/dL below low threshold 8.6 - 10.3 TC-Jmafpxo-M [facility] Work Phone: Chloride [Moles/Vol] 107 mmol/L 98 - 107 MP-U rology-A [employer] Work Phone: CO2 [Moles/Vol] 25 mmol/L 21 - 32 MP-Urolog y-A [facility] Work Phone: Creatinine [Mass/Vol] 0.64 mg/dL See Below MP- Urology-A [facility] Work Phone: Comment on above: Reference Range: 0.5 0 - 1.05 Glucose [Mass/Vol] 87 mg/dL 74 - 99 MP-Uro logy-A [employer] Work Phone: Potassium [Moles/Vol] 3.5 mmol/L 3.5 - 5.3 MP- Urology-A [facility] Work Phone: Sodium [Moles/Vol] 138 mmol/L 136 - 145 MP-Uro logy-A [employer] Work Phone: Urea nitrogen [Mass/Vol] 7 mg/dL 6 - 23 JC-Zhcipvs-I [employer] Work Phone: No Panel Informationon 08-27 MILD PB-Gjkapaa-Z [facility] Work Phone: SEE BELOW JM-Ozupezz-G [employer] Work Phone: >[phone] >90 BC-Kmuiwps-L [facility] Work Phone: Comment on above: CALCULATIONS OF SHY MATED GFR ARE PERFORMED USING THE 2020 CKD-EPI STUDY REFIT EQUATION WITHOUT THE RACE VARIABLE FOR THE IDMS-TRACEABLE CREATININE METHODS.https://jasn.asnjournals.org/content/early/ N.8799464886 Order Reconciliationon 08-27 Order Reconciliation Page 1 Discharge Reconciliation Document Reconciliation Type: Discharge requested on behalf of Alan Draper (Physician) done by Alan Draper) Discharge - Reconciliation: 27-Aug-2021 07:54 by: Alan Draper) Home Medications EnteredHOME MEDICATIONS AT DISCHARGE DateReconciliation Comment/ Additional Information NuvaRing 0.120 mg-0.015 mg/24 hours vaginal ring 1 each vaginal every 4 weeks as directed 17-Dec-2019 14:39 NuvaRing 0.120 mg-0.015 mg/24 hours vaginal ring 1 each vaginal every 4 weeks as directed 17-Dec-2019 14:39 NuvaRing 0.120 mg-0.015 mg/24 hours vaginal ring is continued as NuvaRing 0.120 mg-0.015 mg/24 hours vaginal ring Current OrdersDateHOME MEDICATIONS AT DISCHARGE DateReconciliation Comment/ Additional Information Acetaminophen Tablet (TYLENOL)DOSE = 650 mg Oral Every 4 Hours, PRN Pain - Mild (1-3) 25-Aug-2021 07:56 Acetaminophen is not required Acetaminophen Tablet (TYLENOL)DOSE = 650 mg Oral Every 4 Hours, PRN Temp Greater Than or Equal to 38.0 C 25-Aug-2021 07:56 Acetaminophen is not required Fluconazole Tablet (DIFLUCAN)DOSE = 200 mg Oral Every 24 HoursNotes from Pharmacy: Reproductive Risk- Single Nitrile Glove 25-Aug-2021 07:56 fluconazole 200 mg oral tablet 1 tab(s) orally every 24 hours 27-Aug-2021 07:54 Prescription is created for fluconazole 200 mg oral tablet HYDROmorphone Injectable (DILAUDID)DOSE = 0.5 mg IntraVenous Push Every 5 Minutes, PRN Pain - Severe (7-10) (PACU)Clinician Notes: Justa-operative order ONLYMax total of 4 mg regardless of dose. 25-Aug-2021 11:06 HYDROmorphone Injectable is not required Ketorolac Injectable (TORADOL)DOSE = 30 mg IntraVenous Push Every 6 Hours 25-Aug-2021 07:22 Ketorolac Injectable is not required Magnesium Hydroxide Oral Liquid CONCENTRATE (MILK OF MAGNESIA)DOSE = 10 mL Oral Every 24 Hours, PRN Constipation 25-Aug-2021 07:56 Magnesium Hydroxide Oral Liquid CONCENTRATE is not required Morphine Injectable DOSE = 2 mg IntraVenous Push Every 3 Hours, PRN Pain - Severe (7-10) 25-Aug-2021 07:22 Morphine Injectable is not required Ondansetron Injectable (ZOFRAN)DOSE = 4 mg IntraVenous Push Every 4 Hours, PRN Nausea and/or Vomiting 26-Aug-2021 01:04 Ondansetron Injectable is not required Sodium Chloride 0.9% Infusion IV Bag Volume = 1,000 mL Run at: 100 mL/hr IntraVenous 25-Aug-2021 07:56 Sodium Chloride 0.9% Infusion is not required traMADol Tablet (ULTRAM)DOSE = 50 mg Oral Every 6 Hours, PRN Pain - Mod (4-6) 25-Aug-2021 07:56 traMADol 50 mg oral tablet 1 tab(s) orally every 6 hours, As needed, Pain - Mod (4-6) 27-Aug-2021 07:54 traMADol is continued as traMADol 50 mg oral tablet All Active Home Medications at time of Discharge Reconciliation: 27-Aug-2021 07:54 fluconazole 200 mg oral tablet 1 tab(s) orally every 24 hours NuvaRing 0.120 mg-0.015 mg/24 hours vaginal ring 1 each vaginal every 4 weeks as directed traMADol 50 mg oral tablet 1 tab(s) orally every 6 hours, As needed, Pain - Mod (4-6) Normal [facility] RED CELL MORPHOLOGYon 2021 HYPOCHROMASIA MILD Normal [facility] Comment on above: Performed By: #### L ACT #### [place] [address] RBC morphology finding Nom (Bld) SEE BELOW Normal [facility] Comment on above: Performed By: #### L ACT #### [place] [id number] CBC AND DIFFERENTIALon 08-26 Basophils (Bld) [#/Vol] 0.10 10*3/uL Normal 0.00 - 0.10 [facility] Comment on above: Performed By: #### M ORP2 #### [place] [id number] Basophils/100 WBC (Bld) 1.2 % Normal 0.0 - 2.0 [facility] Comment on above: Performed By: #### M ORP2 #### [address] [address] Eosinophils (Bld) [#/Vol] 0.20 10*3/uL Normal 0.00 - 0.70 [facility] Comment on above: Performed By: #### M ORP2 #### [address] [address] Eosinophils/100 WBC (Bld) 2.3 % Normal 0.0 - 6.0 [facility] Comment on above: Performed By: #### M ORP2 #### [address] [address] Erythrocyte distribution width (RBC) [Ratio] 15.3 % High 11.5 - 14.5 [facility] Comment on above: Performed By: #### M ORP2 #### [address] [address] Hematocrit (Bld) [Volume fraction] 27.2 % Low 36.0 - 46.0 [facility] Comment on above: Performed By: #### M ORP2 #### [address] [address] Hemoglobin (Bld) [Mass/Vol] 8.9 g/dL Low 12.0 - 16.0 [facility] Comment on above: Performed By: #### M ORP2 #### [address] [address] Lymphocytes (Bld) [#/Vol] 2.10 10*3/uL Normal 1.20 - 4.80 [facility] Comment on above: Performed By: #### M ORP2 #### [address] [address] Lymphocytes/100 WBC (Bld) 27.9 % Normal 13.0 - 44.0 [facility] Comment on above: Performed By: #### M ORP2 #### [address] [address] MCHC (RBC) [Mass/Vol] 32.5 g/dL Normal 32.0 - 36.0 [facility] Comment on above: Performed By: #### M ORP2 #### [address] [address] MCV (RBC) [Entitic vol] 71 fL Low 80 - 100 [facility] Comment on above: Performed By: #### M ORP2 #### [address] [address] Monocytes (Bld) [#/Vol] 0.60 10*3/uL Normal 0.10 - 1.00 [facility] Comment on above: Performed By: #### M ORP2 #### [address] [address] Monocytes/100 WBC (Bld) 7.5 % Normal 2.0 - 10.0 [facility] Comment on above: Performed By: #### M ORP2 #### [address] [address] Neutrophils (Bld) [#/Vol] 4.60 10*3/uL Normal 1.20 - 7.70 [facility] Comment on above: Result Comment: Perc ent differential counts (%) should be interpreted in the context of the absolute cell counts (cells/L). Performed By: #### Laura ORP2 #### [address] [address] Neutrophils/100 WBC (Bld) 61.1 % Normal 40.0 - 80.0 [facility] Comment on above: Performed By: #### Laura ORP2 #### [address] [address] Platelets (Bld) [#/Vol] 319 10*3/uL Normal 150 - 450 [facility] Comment on above: Performed By: #### M ORP2 #### [address] [address] RBC 3.85 x10E12/L Low 4.00 - 5.20 [facility] Comment on above: Performed By: #### M ORP2 #### [address] [address] WBC (Bld) [#/Vol] 7.6 10*3/uL Normal 4.4 - 11.3 [facility] Comment on above: Performed By: #### M ORP2 #### [facility] [address] [place] [address] CT Abdomen and Pelvis withou t Contraston 08-26-2021 CT Abdomen and Pelvis WO contrast Normal QR-Wjorfte-M [employer] Work Phone: Complete Blood Count + Diffe rentialon 08-26-2021 Basophils/100 WBC (Bld) 1.2 % 0.0 - 2.0 HK-Ejbpyer-X [employer] Work Phone: [phone] Erythrocyte distribution width (RBC) [Ratio] 15.3 % above high threshold See Below FB-Puxcbbg-R [employer] Work Phone: [phone] Comment on above: Reference Range: 11. 5 - 14.5 Hematocrit (Bld) [Volume fraction] 27.2 % below low threshold See Below XC-Rjrggio-N [employer] Work Phone: [phone] Comment on above: Reference Range: 36. 0 - 46.0 Hemoglobin (Bld) [Mass/Vol] 8.9 g/dL below low threshold See Below BR-Euoquys-L [employer] Work Phone: [phone] Comment on above: Reference Range: 12. 0 - 16.0 Lymphocytes/100 WBC (Bld) 27.9 % See Below KB-Nnzizql-C [employer] Work Phone: [phone] Comment on above: Reference Range: 13. 0 - 44.0 MCHC (RBC) [Mass/Vol] 32.5 g/dL See Below Inteligistics-A [employer] Work Phone: [phone] Comment on above: Reference Range: 32. 0 - 36.0 MCV (RBC) [Entitic vol] 71 fL below low threshold 80 - 100 [employer] Work Phone: [phone] Monocytes/100 WBC (Bld) 7.5 % 2.0 - 10.0 DO-Kpdgwlj-X [employer] Phone: [phone] Neutrophils/100 WBC (Bld) 61.1 % See Below MQ-Cjrtuzl-N [employer] Work Phone: [phone] Comment on above: Reference Range: 40. 0 - 80.0 Platelets (Bld) [#/Vol] 319 10*3/uL 150 - 450 PF-Ktmzbfv-I [employer] Work Phone: [phone] RBC (Bld) [#/Vol] 3.85 {x10E12/L} below low threshold See Below YF-Lxrbqot-A [facility] Work Phone: Comment on above: Reference Range: 4.0 0 - 5.20 WBC (Bld) [#/Vol] 7.6 10*3/uL 4.4 - 11.3 [facility] Work Phone: Complete Blood Count + Differential 0.10 {x10E9/L} See Below RK-Rvuxhwm-E [facility] Work Phone: Comment on above: Reference Range: 0.0 0 - 0.10 Complete Blood Count + Differential 0.20 {x10E9/L} See Below KE-Jpsqzxt-K [facility] Work Phone: Comment on above: Reference Range: 0.0 0 - 0.70 Complete Blood Count + Differential 0.60 {x10E9/L} See Below CB-Oxeiowy-G [employer] Work Phone: Comment on above: Reference Range: 0.1 0 - 1.00 Complete Blood Count + Differential 2.10 {x10E9/L} See Below BO-Uxfwort-T [facility] Work Phone: Comment on above: Reference Range: 1.2 0 - 4.80 Complete Blood Count + Differential 4.60 {x10E9/L} See Below LF-Hgcjgdt-H [facility] Work Phone: Comment on above: Reference Range: 1.2 0 - 7.70 Percent differential counts (%) should be interpreted in the context of the absolute cell counts (cells/L). Complete Blood Count + Differential 2.3 % 0.0 - 6.0 IM-Vzsxilr-T [facility] Work Phone: Daily Progress Note-Medicine on 08-26-2021 Daily Progress Note-Medicine Service: Medicine Review of Systems: Review of Systems: Constitutional: NEGATIVE: Fever, Chills ENMT: NEGATIVE: Nasal Discharge, Nasal Congestion, Ear Pain, Mouth Pain, Throat Pain Respiratory: NEGATIVE: Dry Cough, Productive Cough, Hemoptysis, Wheezing, Shortness of Breath Cardiac: NEGATIVE: Chest Pain, Dyspnea on Exertion, Orthopnea, Palpitations, Syncope Gastrointestinal: POSITIVE: Vomiting; NEGATIVE: Nausea, Diarrhea, Constipation, Abdominal Pain Genitourinary: POSITIVE: Flank Pain; NEGATIVE: Discharge, Dysuria, Frequency, Hematuria Musculoskeletal: POSITIVE: Pain; NEGATIVE: Decreased ROM, Swelling, Stiffness, Weakness Neurological: NEGATIVE: Dizziness, Confusion, Headache, Syncope Psychiatric: NEGATIVE: Mood Changes, Anxiety Subjective Data: SHERIN SANDOVAL is a 26 year old Female who is Hospital Day # 2 and POD #1 for 1. CYSTO L RPG L URETER W/CLAYTON L STENT; Day 2 p.o. fluconazole. Additional Information: Patient still having left-sided flank pain and nausea all night and this morning at bedside and updated on condition Their concern is that the stone is still present worried about the continued pain and return of infection Objective Data: Objective Information: T PRBPMAPSpO2 [id number]% Date/Time08/26 7: 7: 7: 7: 7: 7:24 Range(36C - 36.6C ) (74 - 104 ) (18 - 22 ) (107 - 155 )/ (68 - 112 ) (108 - 108 ) (96% - 100% ) Pain reported at 08/26 4:03: 7 = Severe Physical Exam by System: Constitutional: Awake and alert; oriented x3; no apparent distress or respiratory distress Head/Neck: Neck supple with no palpable lymphadenopathy, bruits or masses; trachea midline with increased neck circumference Respiratory/Thorax: Clear to auscultation bilaterally; no wheezes or rhonchi noted Cardiovascular: Regular rate and rhythm; normal S1-S2 with no murmur; no pitting edema and 2+ pulses bilaterally Gastrointestinal: Soft, nontender, nondistended, positive bowel sounds; obese Genitourinary: There is some left flank tenderness Neurological: Nonfocal; cranial nerves II through XII appear intact Psychological: Pleasant affect Assessment and Plan: Admitting Dx: Calculus of left ureter: Entered Date: 25-Aug-2021 11:54 Comorbidities: Comorbidityobesity Obesitymorbid obesity (BMI 40+) Code Status: Code StatusFull Code Assessment: 26-year-old female admitted for left-sided nephrolithiasis and mild hydronephrosis. Urinalysis was showing yeast. Patient does have a history of previous kidney stones, hypertension, iron deficiency anemia, multinodular goiter, anxiety and panic attacks. PLAN: 1. We will continue pain control with Tylenol for mild pain, tramadol for moderate pain and morphine for severe pain; she has Toradol gnrazh-gfy-nmmoo as well 2. Antiemetics as needed 3. Continue fluid hydration 4. We will get a CBC with differential now and see what her white count is doing 5. Lab for tomorrow morning 6. She is on day 2 of oral fluconazole for yeast in her urinalysis 7. DVT prophylaxis with SCDs 8. Discharge planning in the next 24 to 48 hours if we can get a handle on her pain Electronic Signatures: Eder Aiken () (Signed 26-Aug-2021 08:29) Authored: Service, Review of Systems, Subjective Data, Objective Data, Assessment and Plan, Note Completion Last Updated: 26-Aug-2021 08:29 by Eder Aiken (DO) Normal [facility] LACTATEon 08-26-2021 Lactate [Moles/Vol] 1.0 mmol/L Normal 0.4 - 2.0 [facility] Comment on above: Result Comment: Sheyla puncture immediately after or during the administration of Metamizole may lead to falsely low results. Testing should be performed immediately prior to Metamizole dosing. Performed By: #### L ACT ####[address] [address] Lactate [Moles/Vol] 3.8 mmol/L High 0.4 - 2.0 [facility] Comment on above: Result Comment: Sheyla puncture immediately after or during the administration of Metamizole may lead to falsely low results. Testing should be performed immediately prior to Metamizole dosing. Performed By: #### L ACT ####[address] [address] Lactate, Levelon 08-26-2021 Lactate [Moles/Vol] 1.0 mmol/L 0.4 - 2.0 -Ur ology-A [employer] Work Phone: Comment on above: Venipuncture immedia tely after or during the administration of Metamizole may lead to falsely low results. Testing should be performed immediately prior to Metamizole dosing. Lactate [Moles/Vol] 3.8 mmol/L above high threshold 0.4 - 2.0 JK-Nkyvtir-U [employer] Work Phone: Comment on above: Venipuncture immedia tely after or during the administration of Metamizole may lead to falsely low results. Testing should be performed immediately prior to Metamizole dosing. No Panel Informationon 08-26 MARKED MX-Xblvjsi-F [employer] Work Phone: SEE BELOW UF-Jgtytkk-C [facility] Work Phone: RED CELL MORPHOLOGYon 2021 HYPOCHROMASIA MARKED Normal [facility] Comment on above: Performed By: #### M ORP2 #### [place] [address] RBC morphology finding Nom (Bld) SEE BELOW [facility] Comment on above: Performed By: #### M ORP2 #### [place] [address] Admission Risk Screen - Adul ton 08-25-2021 Admission Risk Screen - Adult Allergies: Allergies: No Known Allergies: Patient Verification: New W ID Band Applied in my Departmentno Type of ID Patient is WearingW wristband, but not applied here Patient Transferred from Other Facility ([facility], [facility],etc)no Patient Identity Verified Bypatient ID Band FULL Name, include Middle, spelling matches patient's ID used for verificationyes ID Band Matches Patient ID used for Verficationyes ID Band MRN Matches EMR MRNyes Visitor Restriction: Coronavirus Visitor Restriction: Reasonable restrictions to in-person visitors will be observed due to current coronavirus pandemic. Travel History: COVID-19 Screening Completedno exposure or symptoms Travel or Exposure Past 30 DaysNO travel to International locations in the past 30 days Ebola AlertFor Ebola-like Symptoms: Isolate Patient and Notify Provider/Contractor Buyer For Contact: Notify Provider/Contractor Buyer Advance Directive: Advance Directive/DNRno (1) Advance Directive Information Givenpatient/family declined [place] Fall Screen: History of falling (immediate or previous)no (0) Secondary Diagnosisno (0) Intravenous Therapy/ Heparin/Saline Lockyes (20) Gait/Transferringnormal/b edrest/wheelchair (0) Ambulatory Aidsnone/bedrest/nurse assist (0) Mental Statusoriented to own ability (0) Score: Low risk (<25). Moderate risk (25-44). High risk (>44).20 Ropre InterventionsLOW INTERVENTIONS: *patient oriented to surroundings and call system, * patient/family falls education completed and documented, *patients fall status communicated during bedside handoff, *whiteboard updated, *mode of toileting discussed with patient, *bed in low position with brakes locked, *call light in reach, * non-skid footwear Family Violence Screen: Are you or have you been threatened or abused physically, emotionally, or sexually by anyoneno Has anyone ever threatened to hurt your family or your petsno Does anyone try to keep you from having/contacting other friends or doing things outside your homeno Do you feel UNSAFE going back to the place where you are livingno Do you feel anyone has exploited or taken advantage of you financially or of your personal propertyno Clinical assessment: Are there any apparent signs of injuries/behaviors that could be related to abuse/neglectno Social Service Consult for abuse/neglect needed this visitno Functional Screen: Functional Screen: In the recent/past 2-4 weeks, patient or family have noticedno issues that require a speech/language consult at this time AM-PAC- Basic Mobility/Daily Activity: Patient baseline bedboundno Turning from your back to your side while in a flat bed without using bedrailsnone Moving from lying on your back to sitting on the side of a flat bed without using bedrailsnone Moving to and from bed to chair (including a wheelchair)none Standing up from a chair using your arms (e.g. wheelchair or bedside chair) none To walk in hospital roomnone Climbing 3-5 steps with railingnone Basic Mobility - Total Score24 Learning Assessment (Patient): Patient is Able to be Assessed for Learningyes Factors Influencing Readiness to Learnacuteness of illness Factors that Impact Ability to Learnnone Devices/Methods Used to Communicatenone Learning Preferencesverbal instruction; written material Cultural Considerationsnone Developmental Considerationsnone Oriental Orthodox Considerationsnone Learning Assessment (Other Learner): Other learner availableno Depression Screen: During the past month, have you often been bothered by feeling down, depressed or hopelessno During the past month, have you often had little interest or pleasure in doing thingsno Have you had any thoughts of harming anyone elseno (2) [place] Suicide: Risk Screen Not Applicable/Able to Answerable to be screened In the Past Month: Have you wished you were or could go to sleep and not wake upno(2) In the Past Month: Have you had any actual thoughts of killing yourself no(2) Lifetime: Have you ever done, started to do, or prepared to do anything to end your lifeno [place] Suicide Risknegative Adult Nutrition Screen: Have you recently lost weight without tryingno Have you been eating poorly because of a decreased appetiteno Malnutrition Screening Tool Score0 Malnutrition Screening Tool RiskMST = 0 or 1 Not at risk. Eating well with little or no weight loss Nutrition Consult needed this visitno Can Patient Participate in Room Serviceyes Patient requires Paper Dishes/Plastic Utensilsno Pain Screen: Pain Scalenumerical 0-10 Pain Scale Educationteaching provided Current Pain Level5 = Moderate Acceptable Pain Level5 = Moderate Expression of Pain (nonverbal)none Chronic Painno Spiritual Screen: Are there any cultural, spiritual, baptism practices/values/needs that are important for us to known (more content not included)... Normal [facility] BASIC METABOLIC PANELon 08-11 Anion gap [Moles/Vol] 11 mmol/L Normal 10 - 20 [facility] Comment on above: Performed By: #### L ACT #### [address] [address] Calcium [Mass/Vol] 9.0 mg/dL Normal 8.6 - 10.3 [facility] Comment on above: Performed By: #### L ACT #### [address] [address] Chloride [Moles/Vol] 108 mmol/L High 98 - [address] [facility] Comment on above: Performed By: #### L ACT #### [address] [place] [address] Creatinine [Mass/Vol] 0.67 mg/dL Normal 0.50 - 1.05 [facility] Comment on above: Performed By: #### L ACT #### [address] [address] eGFR FEMALE >90 Normal >90 [facility] Comment on above: Result Comment: CALC ULATIONS OF ESTIMATED GFR ARE PERFORMED USING THE 2020 CKD-EPI STUDY REFIT EQUATION WITHOUT THE RACE VARIABLE FOR THE IDMS-TRACEABLE CREATININE METHODS. https://jasn.asnjournals.org/content/early//ASN.507985 3781 Performed By: #### L ACT #### [address] [address] Glucose [Mass/Vol] 74 mg/dL Normal 74 - 99 [facility] Comment on above: Performed By: #### L ACT #### [address] [address] HCO3 (Bld) [Moles/Vol] 25 mmol/L Normal 21 - 32 [facility] Comment on above: Performed By: #### L ACT #### [address] [address] Potassium [Moles/Vol] 3.7 mmol/L Normal 3.5 - 5.3 [facility] Comment on above: Performed By: #### L ACT #### [address] [address] Sodium [Moles/Vol] 140 mmol/L Normal 136 - 145 [facility] Comment on above: Performed By: #### L ACT #### [address] [address] Urea nitrogen [Mass/Vol] 12 mg/dL Normal 6 - 23 [facility] Comment on above: Performed By: #### L ACT #### [address] [address] CBC AND DIFFERENTIALon 08-25 Basophils (Bld) [#/Vol] 0.00 10*3/uL Normal 0.00 - 0.10 [facility] Comment on above: Performed By: #### C BCDF ####[address] [address] Basophils/100 WBC (Bld) 0.2 % Normal 0.0 - 2.0 [facility] Comment on above: Performed By: #### C BCDF ####[address] [address] Eosinophils (Bld) [#/Vol] 0.20 10*3/uL Normal 0.00 - 0.70 [facility] Comment on above: Performed By: #### C BCDF ####[address] [address] Eosinophils/100 WBC (Bld) 2.1 % Normal 0.0 - 6.0 [facility] Comment on above: Performed By: #### C BCDF ####[address] [address] Erythrocyte distribution width (RBC) [Ratio] 15.2 % High 11.5 - 14.5 [facility] Comment on above: Performed By: #### C BCDF ####[address] [address] Hematocrit (Bld) [Volume fraction] 30.2 % Low 36.0 - 46.0 [facility] Comment on above: Performed By: #### C BCDF ####[address] [address] Hemoglobin (Bld) [Mass/Vol] 10.1 g/dL Low 12.0 - 16.0 [facility] Comment on above: Performed By: #### C BCDF ####[address] [address] Lymphocytes (Bld) [#/Vol] 2.90 10*3/uL Normal 1.20 - 4.80 [facility] Comment on above: Performed By: #### C BCDF ####[address] [address] Lymphocytes/100 WBC (Bld) 34.6 % Normal 13.0 - 44.0 [facility] Comment on above: Performed By: #### C BCDF ####[address] [address] MCHC (RBC) [Mass/Vol] 33.3 g/dL Normal 32.0 - 36.0 [facility] Comment on above: Performed By: #### C BCDF ####[address] [address] MCV (RBC) [Entitic vol] 70 fL Low 80 - 100 [facility] Comment on above: Performed By: #### C BCDF ####[address] [address] Monocytes (Bld) [#/Vol] 0.60 10*3/uL Normal 0.10 - 1.00 [facility] Comment on above: Performed By: #### C BCDF ####[address] [address] Monocytes/100 WBC (Bld) 6.8 % Normal 2.0 - 10.0 [facility] Comment on above: Performed By: #### C BCDF ####[address] [address] Neutrophils (Bld) [#/Vol] 4.70 10*3/uL Normal 1.20 - 7.70 [facility] Comment on above: Result Comment: Perc ent differential counts (%) should be interpreted in the context of the absolute cell counts (cells/L). Performed By: #### C BCDF ####[address] [address] Neutrophils/100 WBC (Bld) 56.3 % Normal 40.0 - 80.0 [facility] Comment on above: Performed By: #### C BCDF ####[address] [address] Platelets (Bld) [#/Vol] 479 10*3/uL High 150 - 450 [facility] Comment on above: Performed By: #### C BCDF ####[address] [address] RBC 4.34 x10E12/L Normal 4.00 - 5.20 [facility] Comment on above: Performed By: #### C BCDF ####[place] [address] WBC (Bld) [#/Vol] 8.4 10*3/uL Normal 4.4 - 11.3 [facility] Comment on above: Performed By: #### C BCDF ####[place] [address] CORONAVIRUS 2019, SCREEN ASY MPTOMATICon 08-25-2021 SARS-CoV-2 (COVID-19) RNA ELEUTERIO+probe Ql (Unsp spec) Not detected Normal Not Detected [facility] Comment on above: Result Comment: . This test has received FDA Emergency Use Authorization (EUA) and has been verified by [facility]. This test is only authorized for the duration of time that circumstances exist to justify the authorization of the emergency use of in vitro diagnostic tests for the detection of SARS-CoV-2 virus and/or diagnosis of COVID-19 infection under section 564(b)(1) of the Act, 21 U.S.C. 360bbb-3(b)(1), unless the authorization is terminated or revoked sooner. [facility] is certified under CLIA-88 as qualified to perform high complexity testing. Testing is performed in the [facility] laboratory located at [address] [place] [address]. SARS-CoV-2/Flu/RSV Multiplex Test: Fact sheet for providers: https://www.fda.gov/media/177606/download Fact sheet for patients: https://www.fda.gov/media/074076/download Performed By: #### M ORP2 #### [place] [address] Lab Specimen Source Nasal, Nasopharyngeal Normal [facility] Comment on above: Performed By: #### M ORP2 #### [place] [address] CT ABDOMEN AND PELVIS WO CON TRASTon 08-25-2021 CT ABDOMEN AND PELVIS WO CONTRAST Patient Name: SHERIN SANDOVAL STUDY: CT ABDOMEN AND PELVIS WO CONTRAST; 08/25/2021 1:45 am INDICATION: Left flank pain COMPARISON: None. ACCESSION NUMBER(S): [id number] ORDERING CLINICIAN: DIONICIO MEDINA TECHNIQUE: Contiguous axial images of the abdomen and pelvis were obtained without intravenous contrast. Coronal and sagittal reformatted images were obtained from the axial images. FINDINGS: No basilar airspace disease. No pleural effusion. Evaluation of the abdominal viscera is limited secondary lack of intravenous contrast. There is hepatic steatosis. Limited evaluation for liver mass on noncontrast examination. The gallbladder is partially contracted and not well evaluated. No dilatation of the common bile duct. The pancreas, spleen, and adrenal glands appear unremarkable. Mild left hydronephrosis with 5 mm calculus in the proximal left ureter. 4 mm and 2 mm nonobstructive calculi in the lower pole of the left kidney. No evidence of bowel obstruction or acute appendicitis. Urinary bladder is underdistended and not well evaluated. Limited evaluation of the uterus and adnexa. No evidence of significant free abdominal or pelvic fluid. No evidence acute fracture of the lumbar spine. IMPRESSION: Mild left hydronephrosis with 5 mm calculus in the proximal left ureter. 4 mm and 2 mm nonobstructive left renal calculi. Hepatic steatosis. Electronically signed by: ANGELA MILLER MD [facility] CT Abdomen and Pelvis withou t Contraston 08-25-2021 CT Abdomen and Pelvis WO contrast Normal CO-Fbeuijl[employer] Work Phone: Complete Blood Count + Diffe rentialon 08-25-2021 Basophils/100 WBC (Bld) 0.2 % 0.0 - 2.0 [employer] Phone: Erythrocyte distribution width (RBC) [Ratio] 15.2 % above high threshold See Below NM-Duanrvp[employer] Work Phone: Comment on above: Reference Range: 11. 5 - 14.5 Hematocrit (Bld) [Volume fraction] 30.2 % below low threshold See Below [employer] Phone: Comment on above: Reference Range: 36. 0 - 46.0 Hemoglobin (Bld) [Mass/Vol] 10.1 g/dL below low threshold See Below [employer] Work Phone: Comment on above: Reference Range: 12. 0 - 16.0 Lymphocytes/100 WBC (Bld) 34.6 % See Below YN-Whxikfc-H [employer] Work Phone: [phone] Comment on above: Reference Range: 13. 0 - 44.0 MCHC (RBC) [Mass/Vol] 33.3 g/dL See Below - Urology-A [employer] Work Phone: [phone] Comment on above: Reference Range: 32. 0 - 36.0 MCV (RBC) [Entitic vol] 70 fL below low threshold 80 - 100 UD-Rjihtab-Z [employer] Work Phone: Monocytes/100 WBC (Bld) 6.8 % 2.0 - 10.0 OS-Dltyiqg-M [employer] Work Phone: [phone] Neutrophils/100 WBC (Bld) 56.3 % See Below IR-Msuaidz-J [employer] Work Phone: [phone] Comment on above: Reference Range: 40. 0 - 80.0 Platelets (Bld) [#/Vol] 479 10*3/uL above high threshold 150 - 450 DY-Spvviuq-O [employer] Work Phone: RBC (Bld) [#/Vol] 4.34 {x10E12/L} See Below -Urology-A [employer] Work Phone: [phone] Comment on above: Reference Range: 4.0 0 - 5.20 WBC (Bld) [#/Vol] 8.4 10*3/uL 4.4 - 11.3 MP-Uro logy-A [employer] Work Phone: [phone] Complete Blood Count + Differential 0.00 {x10E9/L} See Below AO-Iljcewx-X [employer] Work Phone: [phone] Comment on above: Reference Range: 0.0 0 - 0.10 Complete Blood Count + Differential 0.20 {x10E9/L} See Below TK-Pbzjbeq-T [employer] Work Phone: Comment on above: Reference Range: 0.0 0 - 0.70 Complete Blood Count + Differential 0.60 {x10E9/L} See Below YN-Nyumpzn-P [facility] Work Phone: Comment on above: Reference Range: 0.1 0 - 1.00 Complete Blood Count + Differential 2.90 {x10E9/L} See Below JF-Lmfhhim-W [facility] Work Phone: Comment on above: Reference Range: 1.2 0 - 4.80 Complete Blood Count + Differential 4.70 {x10E9/L} See Below [facility] Work Phone: Comment on above: Reference Range: 1.2 0 - 7.70 Percent differential counts (%) should be interpreted in the context of the absolute cell counts (cells/L). Complete Blood Count + Differential 2.1 % 0.0 - 6.0 [facility] Work Phone: Coronavirus 2019 RNA by PCR, Screening Asymptomticon 08-25-2021 Coronavirus 2019 RNA by PCR, Screening Asymptomtic Not detected Normal See Below [facility] Work Phone: Comment on above: SOURCE: Nasal, Nasop haryngealReference Range: Not Detected.This test has received [facility] Emergency Use Authorization (EUA) and has been verified by [facility]. This test is only authorized for the duration of time that circumstances exist to justify the authorization of the emergency use of in vitro diagnostic tests for the detection of SARS-CoV-2 virus and/or diagnosis of COVID-19 infection under section 564(b)(1) of the Act, 21 U.S.C. 360bbb-3(b)(1), unless the authorization is terminated or revoked sooner. [facility] is certified under CLIA-88 as qualified to perform high complexity testing. Testing is performed in the [facility] laboratory located at [address] [place] [address].SARS-CoV-2/Flu/RSV Multiplex Test: Fact sheet for providers: https://www.fda.gov/media/145092/downloadFact sheet for patients: https://www.fda.gov/media/471909/download Covid 19 Resultson 2 SARS-CoV-2 (COVID-19) RNA ELEUTERIO+probe Ql (Unsp spec) NEGATIVE COVID-19 Test Coronaviruses are common world-wide and are the cause of many common colds. SARS-COV2 is a new coronavirus that began circulating worldwide in 2019 so we are calling it COVID-19. It has been estimated that four out of five patients with COVID-19 will recover at home without the need for medical attention. Symptoms of COVID-19 may include cough, fever, shortness of breath, loss of taste or smell and other flu-like symptoms including chills, sore muscles, sore throat, and headache. Severe illness is more common in older people and people with other health problems such as high blood pressure, obesity, and immune system problems. If the test is positive, you have COVID-19. You will be contacted by the ordering physicians office and instructed to remain on home isolation, in accordance with CDC guidelines. You may also be contacted by the [facility] to see if any of your close contacts may have been exposed to the virus and need to quarantine. If the test is negative, you likely do not have COVID-19 at this time, but you still may have a different illness that can spread to other people (like Influenza, or the Flu) and could still be at risk for getting COVID-19. We recommend that you stay away from other people to limit the spread of illness until your symptoms are improving and you are fever-free for 24 hours without the use of fever lowering medications such as acetaminophen or ibuprofen. No test is 100% accurate so if you are still concerned you may have COVID-19, talk to your doctor about the need to continue to stay away from others. Medicines Unless your provider told you not to use the following: Acetaminophen (Tylenol and others) is generally safe. Anti-inflammatory medications, such as Ibuprofen (Advil or Motrin) or Naproxen (Aleve) can also be used. Wfdi-ksh-itciyqv cough and cold medicines can be used according to the instructions on the package. Some vhcj-tjf-dbhzzqg medicines also contain acetaminophen. Make sure you are not taking more than your recommended dose. For those not hospitalized, there is no specific treatment available for this illness. Antibiotics do not treat Coronaviruses. Follow-Up Follow up with your doctor by scheduling a virtual visit or consider follow-up at one of our urgent care fever clinics. If you are having difficulty breathing, or are very weak and having difficulty standing, this is a medical emergency. Call 911 or have someone take you to the nearest emergency room immediately. If possible, wear a facemask. Additional guidance from the CDC for patients who tested POSITIVE for COVID-19 How to isolate: Isolate yourself in a specific room at home and limit your contact with others. Use a separate bathroom from other members of the household, when possible. Leave home only to get essential medical care. Do not go to work, school or public areas. Avoid using public transportation, ride-sharing, or taxis. Restrict contact with pets and other animals. If you must care for your pet or be around animals while you are sick, wash your hands before and after your interaction and wear a facemask. Make sure that shared spaces in the home have good airflow, such as by an air conditioner or an opened window, weather permitting. Personal Hygiene Procedures: Wear a face mask when in the same room as other people or pets. If a face mask interferes with your breathing, others should wear a mask when sharing space with you. Frequent hand-washing: wash your hands with soap and water for at least 20 seconds. If soap and water are not available, use alcohol-based hand personnel officer. Avoid touching your eyes, nose, and mouth with unwashed hands. Household Hygiene Procedures: Avoid sharing personal household items such as dishes, glassware, cups, eating utensils, towels or bedding with other people or pets in your home. After use, these items should be washed with soap and hot water. Disinfect all high-touch surfaces every day with antibacterial cleaning solutions such as Lysol wipes, bleach, cleansers, etc. High-touch surfaces include tabletops, doorknobs, bathroom fixtures, toilets, phones, keyboards, tablets and bedside tables. Immediately clean any surfaces that may have blood, poop or body fluids on them, using antibacterial cleaning solutions such as Lysol wipes, bleach, cleansers, etc. If clothing or bedding come into contact with blood, poop or body fluids, they should be washed immediately. Follow the directions on the laundry detergent and clothing labels but hot water is recommended when possible. Stopping home isolation precautions: If possible, consult your doctor before stopping home isolation precautions. According to the CDC, you can discontinue home isolation precautions when you have met both of these criteria: Your fever and respiratory symptoms have been gone for 24 chet (more content not included)... Normal [facility] Cult, Urineon 08-25-2021 Bacteria identified Cx Nom (U) MT-Qelzvdd-G [facility] Work Phone: Discharge Planning Irfu3or 0 08-25-2021 Discharge Planning Note2 Discharge Planning: Anticipated Discharge [id number] Discharge Planning 08/25/2021 Sakshi Bernard RN [id number]/Tiannao/ Remote Coverage. Patient off of unit for cysto- Per chart review patient appears to be independent prior to admission and resides with her spouse. Patient with no immediate needs at this time Will continue to follow for dc planning Assessment: Discharge Planning Assessment [id number] Primary Contact Name and NumberSean () [phone](1) Lives Withspouse(1) Living Arrangementsapartment(1) Stated Reason for AdmissionKidney flank pain(1) Arrived Fromemergency department (1) PCPDo not have one [facility]/Environmental Concernsnone(1) [place] Services Anticipated at Transitionnone(1) Discharge Documentation: Discharge/Transfer Date/[id number] 10:13 Discharged Accompanied Byspouse Discharge Modewheelchair Transportation Methodprivate car Code StatusCode Status order at time of discharge: Full Code [place] DNR Form Sent with Patient and/or Familyno Valuables/Medications/Bel ongings Returnedyes Final DispositionHome Electronic Signatures: Sakshi Bernard (CLIN COOR) (Signed 25-Aug-2021 15:03) Authored: Discharge Planning Lori Townsend (RN) (Signed 25-Aug-2021 08:55) Authored: Assessment Madhavi Mckeon (MIHIR) (Signed 27-Aug-2021 10:27) Authored: Discharge Planning, Discharge Documentation Last Updated: 27-Aug-2021 10:27 by Madhavi Mckeon (RN) References: 1. Data Referenced From Patient Profile - Adult v2 25-Aug-2021 08:36 Normal [facility] FERRITINon 08-25-2021 FERRITIN 11 ug/L Normal 8 - 150 [facility] Comment on above: Performed By: #### F ERRI #### [address] [address] FOLATE, SERUMon 08-25-2021 Folate [Mass/Vol] 14.9 ng/mL Normal >5.0 [facility] Comment on above: Result Comment: Low <3.4 Borderline 3.4-5.0 Normal >5.0 . Patients receiving more than 5 mg/day of biotin may have interference in test results. A sample should be taken no sooner than eight hours after previous dose. Contact the testing laboratory for additional information. Performed By: #### F OLA2 #### [address] [address] Ferritin, Serumon 08-25-2021 Ferritin [Mass/Vol] 11 ug/L 8 - 150 MP-Ur ology-A [facility] Work Phone: Folate, Serumon 08-25-2021 Folate [Mass/Vol] 14.9 ng/mL >5.0 MP-Urol ogy-A [facility] Work Phone: Comment on above: Low <3.4Borderline 3 .4-5.0Normal >5.0. Patients receiving more than 5 mg/day of biotin may have interference in test results. A sample should be taken no sooner than eight hours after previous dose. Contact the testing laboratory for additional information. HCG, Serum - Qualitativeon 0 08-25-2021 HCG ( test) Ql Negative Negative GT-Dxadbyu-N [facility] Work Phone: HCG,SERUM QUALITATIVEon - HCG,SERUM QUALITATIVE Negative Normal Negative [facility] Comment on above: Performed By: #### H CGS ####[address] [address] IRON + TIBCon 08-25-2021 % SATURATION NOT CALC. Normal 25 - 45 [facility] Comment on above: Result Comment: One or more analytes used in this calculation is outside of the analytical measurement range. Calculation cannot be performed. Performed By: #### M ORP2 #### [address] [address] Iron [Mass/Vol] ug/dL Abnormal 35 - 150 [facility] Comment on above: Performed By: #### M ORP2 #### [address] [address] TIBC <371 Abnormal 240 - 445 [facility] Comment on above: Result Comment: Inte rpret results with caution. One or more analytes used in this calculation is outside of the analytical measurement range. Performed By: #### M ORP2 #### [address] [address] LACTATEon 08-25-2021 LACTATE Canceled Normal [facility] Comment on above: Order Comment: TEST LACTATE WAS CANCELLED, 08/25/2021 04:47 This was a duplicate. . Result Comment: Sheyla puncture immediately after or during the administration of Metamizole may lead to falsely low results. Testing should be performed immediately prior to Metamizole dosing. Performed By: #### L ACT ####[address] [address] Lactate [Moles/Vol] 2.8 mmol/L High 0.4 - 2.0 [facility] Comment on above: Result Comment: Sheyla puncture immediately after or during the administration of Metamizole may lead to falsely low results. Testing should be performed immediately prior to Metamizole dosing. Performed By: #### M ORP2 #### [address] [address] Laboratory - Chemistry and C hemistry - challengeon 08-25-2021 Iron [Mass/Vol] ug/dL Abnormal 35 - 150 -Urolog y-A [facility] Work Phone: [phone] Iron binding capacity [Mass/Vol] <371 Abnormal 240 - 445 YL-Ekuceqe-A [facility] Work Phone: Comment on above: Interpret results wi th caution.One or more analytes used in this calculation is outside of the analytical measurement range. Anion gap [Moles/Vol] 11 mmol/L 10 - 20 MP- Urology-A [employer] Work Phone: Calcium [Mass/Vol] 9.0 mg/dL 8.6 - 10.3 MP-Uro logy-A [employer] Work Phone: Chloride [Moles/Vol] 108 mmol/L above high threshold 98 - 107 SV-Abssjsa-T [employer] Work Phone: CO2 [Moles/Vol] 25 mmol/L 21 - 32 MP-Urolog y-A [employer] Work Phone: Creatinine [Mass/Vol] 0.67 mg/dL See Below MP- Urology-A [employer] Work Phone: [phone] Comment on above: Reference Range: 0.5 0 - 1.05 Glucose [Mass/Vol] 74 mg/dL 74 - 99 MP-Uro logy-A [employer] Work Phone: [phone] Potassium [Moles/Vol] 3.7 mmol/L 3.5 - 5.3 - Urology-A [employer] Work Phone: Sodium [Moles/Vol] 140 mmol/L 136 - 145 MP-Uro logy-A [employer] Work Phone: [phone] Urea nitrogen [Mass/Vol] 12 mg/dL 6 - 23 DH-Iaebusp-B [employer] Work Phone: [phone] Lactate, Levelon 08-25-2021 Lactate [Moles/Vol] 1.0 mmol/L Normal 0.4 - 2.0 MP-Ur ology-A [employer] Work Phone: Comment on above: Venipuncture immedia tely after or during the administration of Metamizole may lead to falsely low results. Testing should be performed immediately prior to Metamizole dosing. Result Comment: Sheyla puncture immediately after or during the administration of Metamizole may lead to falsely low results. Testing should be performed immediately prior to Metamizole dosing. Performed By: #### L ACT #### [address] [place] [address] Lactate [Moles/Vol] 2.8 mmol/L above high threshold 0.4 - 2.0 MS-Mrwmjmi-B [employer] Work Phone: Comment on above: Venipuncture immedia tely after or during the administration of Metamizole may lead to falsely low results. Testing should be performed immediately prior to Metamizole dosing. No Panel Informationon 08-25 Please click on the link to view the study images Normal QR-Spqgbhj-K [employer] Work Phone: [phone] NOT CALC. 25 - 45 RD-Tiqrfva-V [employer] Work Phone: [phone] Comment on above: One or more analytes used in this calculation is outside of the analytical measurement range.Calculation cannot be performed. FEW UE-Wmovvlf-E [employer] Work Phone: MILD OT-Pahyulf-C [employer] Work Phone: [phone] SEE BELOW UE-Zejmliw-U [employer] Work Phone: [phone] >90 >90 WI-Zlcokql-O [employer] Work Phone: Comment on above: CALCULATIONS OF SHY MATED GFR ARE PERFORMED USING THE 2020 CKD-EPI STUDY REFIT EQUATION WITHOUT THE RACE VARIABLE FOR THE IDMS-TRACEABLE CREATININE METHODS.https://jasn.asnjournals.org/content// N.5990569941 Order Reconciliationon 08-25 Order Reconciliation Page 1 Admission Reconciliation Document Reconciliation Type: ED to Observation requested on behalf of Arun Braun (Physician) done by Arun Braun) ED to Observation - Reconciliation: 25-Aug-2021 07:44 by: Arun Braun) ED to Observation - AutoLinked: 25-Aug-2021 07:44 by: Arun Braun) Home MedicationsEnteredLast Dose TakenReconciled with current Order Reconciliation Comment/ Additional Information NuvaRing 0.120 mg-0.015 mg/24 hours vaginal ring 1 each vaginal every 4 weeks as -[id number] Reviewed and Held Documentation of outpatient medication history is incomplete. Additional Current Orders Ketorolac Injectable (TORADOL)DOSE = 30 mg IntraVenous Push Every 6 Hours Morphine Injectable DOSE = 2 mg IntraVenous Push Every 3 Hours, PRN Pain - Severe (7-10) Sodium Chloride 0.9% Infusion IV Bag Volume = 1,000 mL Run at: 125 mL/hr IntraVenous Normal [facility] Patient Profile - Adult v2on 08-25-2021 Patient Profile - Adult v2 Profile: Initial Info: How to be AddressedElizabeth Spoken Language PreferredEnglish (1) Source of Informationpatient Stated Reason for AdmissionKidney flank pain Primary Contact Name and NumberSean () [phone] Wants Family/Rep Notified of Admissionn/a; family present Notify PCPnotify PCP Informed of Patient Visiting Rightsyes Limitations on Visitors/Phone Callsnone Temporary Family Living Arrangements (While Hospitalized)none needed Arrived Fromemergency department Patient Belongingsremains with patient Patient Belongings Remaining with Patientclothing; cell phone/electronics Medications [facility] to [facility] General Health: Weight in kg127.3 kilogram(s)(2) Weight in pci970.6 pound(s) Weight Methodactual (measured) Scale Typebed Height in cm162.5 centimeter(s)(2) Height in feet5 feet Height in inches3.98 inch(es) Height Methodstated BMI (kg/m2)48.208 square meter RSP Based Care: How would you like to participate in your carekept informed What is the number one concern for you during this hospitalizationget her better What is the most important thing we can do to support you during this hospitalizationGet pain under control Is there anything we need to know to best care for youShe has anxiety Substance: Smoking Statusnever smoker (3) Alcohol Usedenies(3) Drug Usedenies (3) Drug 2 Usedenies (3) Health Mgmt: Symptoms/Conditions Managed at [facility] Are You no (3) Are You Currently Breastfeedingno (3) Relationship/Environ: Resource/Environmental Concernsnone Primary Source of Support/Comfortspouse Lives Withspouse Living Arrangementsapartment Services Anticipated at Transitionnone Anticipated Transition Tohome Significant IndicatorsComplete Information Review: Allergies, Home Meds and Significant Events have been Reviewed and Verified with Patient/Familyyes ALLERGY, INTOLERANCE, ADVERSE EVENT: Allergies: No Known Allergies: Active Electronic Signatures: Lori Townsend) (Signed 25-Aug-2021 08:47) Authored: Initial Info, General Health, RSP Based Care, Substance, Health Mgmt, Relationship/Environ, Additional Information Last Updated: 25-Aug-2021 08:47 by Lori Townsend (MIHIR) References: 1. Data Referenced From Triage - ED 25-Aug-2021 00:10 2. Data Referenced From 1. Vital Signs 25-Aug-2021 00:10 3. Data Referenced From History and Physical 25-Aug-2021 08:07 Normal [facility] Preop Checkliston 08-25-2021 Preop Checklist Preop Checklist: Preop Checklist: Arrival [id number] Arrival Time10:30 Procedure Typecysto left rpg with stent placement Temperature C36.5 degrees C Temperature F97.7 degrees F Heart Rate90 beats per minute Respiratory Rate22 breath per minute Blood Pressure Rvzuhyan835 mm/Hg Blood Pressure Wpxxohesy64 mm/Hg COVID 19 Results in Last 7 daysNot Detected NPOyes Last Food [id number] 23:59 Last Clear Fluid [id number] 23:59 ID Band On Patientpatient ID (name) Consent Signedyes, H&P and consent verified H&P Completeyes Anesthesia Assessment Completedyes EKG Performedsee results tab Chest X-Ray Performedsee results tab Preop Antibioticsstarted in preop Type and Screen Resultedno HCG Urine TestComplete in ED negative Chlorhexadine Bath Givennot applicable Nasal Antiseptic Appliednot applicable Soap and Water Bath the Night Before Surgerynot applicable Hair Washed with Shampoonot applicable Hat placed on prior to transportnot applicable SCD's Appliedyes KRISSY Hose Appliednot ordered Denturesnot applicable Prostheticsnot applicable Hearing Aidsnot applicable Glasses / Contactsnot applicable Bowel Prepno Cardiovascular Assessment: Apicalregular Radial Pulsespalpable Extremitieswarm, well perfused Respiratory Assessment: Respirationsunlabored Air Exchangeequal Breath Soundsclear Neurological Assessment: Level of Consciousnessalert Mobilitymoves all extremities Able to Express Selfyes Age Appropriateyes Emotional Statuscalm Skin Assessment: Skin Site(s) with Current Compromisenone Preop Education: Surgical Site Infection Preventionyes Pain Scales and Managementyes Language / Communication: Language / CommunicationEnglish Electronic Signatures: Michelle Connors) (Signed 25-Aug-2021 10:35) Authored: Preop Checklist Last Updated: 25-Aug-2021 10:35 by Michelle Connors) [facility] Provider Note - ED v3on 04- Provider Note - ED v3 Provider Note: Chart Review: ED NOTES ED NOTES: 26-year-old female with history of nephrolithiasis presents with severe left flank and CVA pain. Patient states symptoms started approximately an hour ago at home. Patient is complaining of some mild nausea but denies any vomiting. Patient denies any hematuria or dysuria of presenting complaints. Patient was in moderate distress when I evaluated her due to the pain. IV was established and she will be given Toradol 15 mg IV and Zofran 4 mg IV. Patient denies any vaginal bleeding or discharge. The patient did get some initial relief with the 15 mg of IV Toradol but came back from CAT scan and moderate pain. Patient was given 2 mg of morphine and 4 of Zofran. I did go over the CT findings with the patient. Patient states last time she had a kidney stone was several years ago. The patient was reassessed and will be given another 2 mg of IV morphine due to the pain. Due to the amount of pain patient may need to be hospitalized for further inpatient treatment. HISTORY OF PRESENTING ILLNESS SHERIN is a 26 year old Female and was seen by me at 25-Aug-2021 00:08 for a chief complaint of flank pain (Pt complaint of left flank pain starting one hour ago.)(1). The historian is the patient. Triage Information: Most recent Vital Sign Value Date Temp (F): 96.8 08-25-2021 00:10 Temp (C): 36 08-25-2021 00:10 Heart Rate (beats/min): 89 08-25-2021 00:10 Respirations (breaths/min): 20 08-25-2021 00:10 SpO2 (%): 98 08-25-2021 00:10 BP Systolic (mm Hg): 155 08-25-2021 00:10 BP Diastolic (mm Hg): 112 08-25-2021 00:10 PAST MEDICAL HISTORY ALLERGIES/INTOLERANCES: No Known Allergies HEALTH HISTORY: Medical History Name:Iron deficiency anemia Code:D50.9 Name:Dental caries Code:K02.9 OUTPATIENT MEDICATIONS: Home Medications Review Status for Reconciliation: N/A Med Status: Patient Currently Takes Medications Drug Name: NuvaRing 0.120 mg-0.015 mg/24 hours vaginal ring Instructions: 1 each vaginal every 4 weeks as directed Drug Name: amoxicillin 875 mg oral tablet Instructions: 1 tab(s) orally 2 times a day Drug Name: metroNIDAZOLE 500 mg oral tablet Instructions: 1 tab(s) orally every 6 hours SIGNIFICANT EVENTS: Past Medical History Description:anxiety Description:situational anxiety Description:kidney stones Description:thyroid nodule Past Surgical History Description:TONSILLECTOMY REVIEW OF SYSTEMS GASTROINTESTINAL: POSITIVE for: nausea; MUSCULOSKELETAL: POSITIVE for: back pain PHYSICAL EXAM CONSTITUTIONAL: Mildly obese 26-year-old female who is, awake, alert, oriented to person, place, time/situation and in moderate apparent distress. HENMT: Airway patent, ears with clear tympanic membranes bilaterally. Nasal mucosa clear. Mouth with normal mucosa. Throat has no vesicles, no oropharyngeal exudates and uvula is midline. Face with no lymph node enlargement. EYES: Clear bilaterally, pupils equal, round and reactive to light. CARDIOVASCULAR: Normal rate, regular rhythm. Heart sounds S1, S2. No murmurs, rubs or gallops. PMI non-displaced. RESPIRATORY: Breath sounds clear and equal bilaterally. GASTROINTESTINAL: Abdomen soft, non-distended, no rebound, no guarding. Bowel sounds normal in all 4 quadrants. Left CVA and flank tenderness to percussion. GENITOURINARY: No discharge, no lesions. MUSCULOSKELETAL: Spine appears normal, range of motion is not limited, no muscle or joint tenderness. NEUROLOGICAL: Alert and oriented, no focal deficits, no motor or sensory deficits. SKIN: Skin normal color for race, warm, dry and intact. No evidence of trauma. PSYCHIATRIC: Alert and oriented to person, place, time/situation. normal mood and affect. No apparent risk to self or others. HEME/LYMPH: No adenopathy or splenomegaly. No cervical, supraclavicular or inguinal lymphadenopathy. CRITICAL CARE RESULTS: Recent Lab Results: I have reviewed these laboratory results: Lactate, Level Trending View [id number] 03:00:00 25-Aug-2021 00:34:00 Lactate, Level1.0 2.8 H Urinalysis 25-Aug-2021 02:02:00 ResultValue Color, Urine Yellow Reference Range: STRAW,YELLOW Appearance, Urine HAZY Specific Foss, Urine 1.025 pH, Urine 5.0 Protein, Urine 100(2+) A Glucose, Urine NEGATIVE Blood, Urine LARGE(3+) A Ketones, Urine NEGATIVE Bilirubin, Urine NEGATIVE Urobilinogen, Urine <2.0 Nitrite, Urine Negative Leukocyte Esterase, Urine NEGATIVE Urinalysis, Microscopic 25-Aug-2021 02:02:00 ResultValue White Cells 16 A WBC Clumps OCC Red Blood Cells >182 A Epithelial Cells, Squamous 2 Bacteria, Urine 1+ A Budding Yeast PRESENT A Mucous 4+ Amorphous Crystals 1+ Complete Blood Count + Differential 25-Aug-2021 00:24:00 ResultValue White Blood Cell Count 8.4 Red Blood Cell Count 4.34 HGB 10.1 L HCT 30.2 L MCV 70 L MCHC 33.3 PLT 479 H (more content not included)... Normal [facility] RED CELL MORPHOLOGYon 2021 GIANT PLATELETS FEW Normal [facility] Comment on above: Performed By: #### M ORP2 ####[place] [address] HYPOCHROMASIA MILD Normal [facility] Comment on above: Performed By: #### M ORP2 ####[place] [address] RBC morphology finding Nom (Bld) SEE BELOW [facility] Comment on above: Performed By: #### M ORP2 ####[place] [address] Risk Screen - Adult Emergenc yon 08-25-2021 Risk Screen - Adult Emergency Preferred Language: Preferred Language: Preferred Language for Discussing Health Care (patient/designee)Mozambican Advanced Directives: Advance Directive/DNRno Family Violence Adult: Abuse Screen: Are you or have you been threatened or abused physically, emotionally, or sexually by anyoneno Learning Assessment (Patient): Learning Assessment (Patient): Patient is Able to be Assessed for Learningyes Factors Influencing Readiness to Learnacuteness of illness Factors that Impact Ability to Learnnone Devices/Methods Used to Communicatenone Learning Preferencesaudio Cultural Considerationsnone Developmental Considerationsnone Oriental Orthodox Considerationsnone Learning Assessment (Other Learner): Learning Assessment (Other Learner): Other learner availableno Pressure Injury/TB/Substance: Pressure Injury: Pressure Injury Present on Admissionno Do you have a coughno Smoking Statusnever smoker Alcohol Usedenies Drug Usedenies Drug 2 Usedenies Admission Risk Screen: Significant IndicatorsComplete CAGE: CAGE: Is this an injured patient at a Trauma Center ([facility]/[place]/ [place]): no Electronic Signatures: Lori Howell (RN) (Signed 25-Aug-2021 00:12) Authored: Preferred Language, Advanced Directives, Family Violence Adult, Learning Assessment (Patient), Learning Assessment (Other Learner), Pressure Injury/TB/Substance, Pressure Injury, CAGE Last Updated: 25-Aug-2021 00:12 by Lori Howell (RN) [facility] Triage - EDon 08-25-2021 Triage - ED Quick Triage: Are You no Have You Given In The Last 6 Weeksno Are You Currently Breastfeedingno Chart Review: PRIMARY ASSESSMENT SHERIN SANDOVAL's primary assessment is Within Defined Limits. The airway is open and patent. Breathing spontaneous and unlabored with clear breath sounds bilaterally. Circulation is normal with good peripheral pulses. Skin is warm and dry and color is normal for race. ARRIVAL INFORMATION Means of Arrival: wheelchair Mode of Arrival: private vehicle Arrival From: home Accompanied By: self Language: Spoken Language Preferred: Mozambican Reading Language Preferred: Mozambican [employer] Requested: no foxing closer was requested MDRO: History of MDRO: no Present on Arrival: Device Present on Arrival to ED: no Pressure Ulcer Present on Arrival to ED: no CHIEF COMPLAINT SHERIN SANDOVAL is a Female patient with a chief complaint of flank pain (Pt complaint of left flank pain starting one hour ago.). Triage Date/Time: 25-Aug-2021 00:10 PATRICIA: 3 Pain Rating (0-10): 10 = Severe Pain location: left flank Vital Signs: Temperature: 96.8F ( 36.0C) taken forehead Blood Pressure: 155/112 Mean: Heart Rate: 89 Respiratory Rate: 20 Pulse Oximetry: 98% on room air, no respiratory support. Height: 5 feet 4.00 inches. 162.5 CM Weight: 280.6 pounds. Calculated 127.3 kg. (stated) Calculated BMI (kg/m2): 48.208 Calculated BSA (m2) 2.40 Tyrell Coma Scale: Best Eye Response: (E4) spontaneous Best Motor Response: (M6) obeys commands Best Verbal Response: (V5) oriented Tyrell Score: 15 Cough lasting greater than 3 weeks: no Allergies: no Mask applied: yes Patient has homicidal thoughts: no Symptom Notes: . Symptoms Are POSITIVE For: flank pain. Symptoms Are Negative For: anorexia, chills, dysuria, fever, frequency, hematuria, malaise, nausea and urgency. Risk Screens Suicide Risk Screen In the Past Month: Have you wished you were or wished you could go to sleep and not wake up no In the Past Month: Have you had any actual thoughts of killing yourself no In Your Lifetime: Have you ever done anything, started to do anything, or prepared to do anything to end your life no Roper Fall Scale Screening Has the patient fallen before (or is the patient in the ED as a result of a fall) has not had a fall Does the patient have an impaired gait does not have impaired gait Is the patient cognitively impaired not cognitively impaired Interventions: Roper Fall Interventions: LOW INTERVENTIONS: *patient oriented to surroundings and call system, * patient/family falls education completed and documented, *patients fall status communicated during bedside handoff, *whiteboard updated, *mode of toileting discussed with patient, *bed in low position with brakes locked, *call light in reach, * non-skid footwear PAST MEDICAL HISTORY Immunization History: Last Known Tetanus Immunization: Unknown TRAVEL HISTORY Travel History Coronavirus Screening: no exposure or symptoms Travel Exposure History: NO travel to International locations in the past 30 days PAIN Pain Scale Used: IVON Pain Rating (0-10): 10 = Severe Past Medical History: Past Medical History Reviewedyes Electronic Signatures: Lori Howell (MIHIR) (Signed 25-Aug-2021 00:11) Entered: Risk Screens, Pain, Arrival, ABCD, Immunizations, Travel History, Chart Review, Scores, Past Medical History Authored: Quick Triage, Risk Screens, Pain, Arrival, ABCD, Immunizations, Travel History, Chart Review, Scores, Past Medical History Last Updated: 25-Aug-2021 00:11 by Lori Howell (MIHIR) Normal [facility] UA MICROSCOPICon 08-25-2021 BACTERIA 2+ /HPF Abnormal [facility] Comment on above: Performed By: #### U AMIC #### [place] [address] RBC 51-100 Abnormal 0-[address] [facility] Comment on above: Performed By: #### U AMIC #### [place] [address] SQUAMOUS EPITH. CELLS FEW Normal [facility] Comment on above: Performed By: #### U AMIC #### [place] [address] WBC 5-20 Abnormal 0-[address] [facility] Comment on above: Performed By: #### U AMIC #### [place] [address] AMORPHOUS CRYSTAL 1+ /HPF Normal [facility] Comment on above: Performed By: #### U AMIC ####[place] [address] BACTERIA 1+ /HPF Abnormal [facility] Comment on above: Performed By: #### U AMIC ####[place] [address] BUDDING YEAST PRESENT Abnormal [facility] Comment on above: Performed By: #### U AMIC ####[place] [address] Mucus Ql (Urine sed) 4+ /LPF Normal [facility] Comment on above: Performed By: #### U AMIC ####[place] [address] RBC (U) [#/Vol] /uL Abnormal 0-5 [facility] Comment on above: Performed By: #### U AMIC ####[place] [address] SQUAMOUS EPITH. CELLS 2 /HPF Normal [facility] Comment on above: Performed By: #### U AMIC ####[place] [address] WBC 16 /HPF Abnormal 0-[address] [facility] Comment on above: Performed By: #### U AMIC ####[place] [address] WBC CLUMPS OCC Normal [facility] Comment on above: Performed By: #### U AMIC ####[place] [address] URINALYSISon 08-25-2021 Appearance (U) HAZY Normal CLEAR [facility] Comment on above: Performed By: #### U A ####[place] [address] Bilirubin Ql (U) Negative Normal NEGATIVE [facility] Comment on above: Performed By: #### U A ####[place] [address] Color (U) Yellow Normal STRAW,YELLO W [facility] Comment on above: Performed By: #### U A ####[place] [address] Glucose Ql (U) Negative Normal NEGATIVE [facility] Comment on above: Performed By: #### U A ####[place] [address] Hemoglobin Ql (U) LARGE(3+) Abnormal NEGATIVE [facility] Comment on above: Performed By: #### U A ####[place] [address] Ketones Ql (U) Negative Normal NEGATIVE [facility] Comment on above: Performed By: #### U A ####[place] [address] Leukocyte esterase Test strip Ql (U) Negative Normal NEGATIVE [facility] Comment on above: Performed By: #### U A ####[place] [address] Nitrite Ql (U) Negative Normal NEGATIVE [facility] Comment on above: Performed By: #### U A ####[place] [address] pH (U) 5.0 [pH] Normal 5.0 - 8.0 [facility] Comment on above: Performed By: #### U A ####[place] [address] Protein Ql (U) 100(2+) Abnormal NEGATIVE [facility] Comment on above: Performed By: #### U A ####[address] [address] Specific gravity (U) [Rel density] 1.025 Normal 1.005 - 1.035 [facility] Comment on above: Performed By: #### U A ####[address] [address] Urobilinogen (U) [Mass/Vol] mg/dL Normal 0.0 - 1.9 [facility] Comment on above: Performed By: #### U A ####[place] [address] URINALYSIS WITH CULTURE IF I NDICATEDon 08-25-2021 Appearance (U) HAZY Normal CLEAR [facility] Comment on above: Performed By: #### U ARFX #### [place] [address] Bilirubin Ql (U) Negative Normal NEGATIVE [facility] Comment on above: Performed By: #### U ARFX #### [address] [address] Color (U) Red Normal STRAW,YELLO W [facility] Comment on above: Performed By: #### U ARFX #### [address] [address] Glucose Ql (U) Negative Normal NEGATIVE [facility] Comment on above: Performed By: #### U ARFX #### [address] [address] Hemoglobin Ql (U) LARGE(3+) Abnormal NEGATIVE [facility] Comment on above: Performed By: #### U ARFX #### [address] [address] Ketones Ql (U) Negative Normal NEGATIVE [facility] Comment on above: Performed By: #### U ARFX #### [address] [address] Leukocyte esterase Test strip Ql (U) MODERATE(2+) Abnormal NEGATIVE [facility] Comment on above: Performed By: #### U ARFX #### [address] [address] Nitrite Ql (U) Negative Normal NEGATIVE [facility] Comment on above: Performed By: #### U ARFX #### [address] [address] pH (U) 6.0 [pH] Normal 5.0 - 8.0 [facility] Comment on above: Performed By: #### U ARFX #### [place] [id number] Protein Ql (U) 100(2+) Abnormal NEGATIVE [facility] Comment on above: Performed By: #### U ARFX #### [place] [id number] Specific gravity (U) [Rel density] 1.017 Normal 1.005 - 1.035 [facility] Comment on above: Performed By: #### U ARFX #### [place] [id number] Urobilinogen (U) [Mass/Vol] mg/dL Normal 0.0 - 1.9 [facility] Comment on above: Performed By: #### U ARFX #### [place] [address] Appearance (U) Canceled Normal [facility] Comment on above: Order Comment: TEST URINALYSIS WITH CULTURE IF INDICATED WAS CANCELLED, 08/25/2021 18:59duplicate. Performed By: #### U ARFX ####[place] [address] ASCORBIC ACID Canceled Normal [facility] Comment on above: Order Comment: TEST URINALYSIS WITH CULTURE IF INDICATED WAS CANCELLED, 08/25/2021 18:59duplicate. Result Comment: Conc entrations > = 20 mg/dL of ascorbic acid can be expected to cause strong interference in the reactions testing for glucose, nitrite and blood. It is recommended to discontinue Vitamin C administration and retest in 10 hours. Performed By: #### U ARFX ####[place] [id number] Bilirubin Ql (U) Canceled [facility] Comment on above: Order Comment: TEST URINALYSIS WITH CULTURE IF INDICATED WAS CANCELLED, 08/25/2021 18:59duplicate. Performed By: #### U ARFX ####[address] [address] Color (U) Canceled [facility] Comment on above: Order Comment: TEST URINALYSIS WITH CULTURE IF INDICATED WAS CANCELLED, 08/25/2021 18:59duplicate. Performed By: #### U ARFX ####[address] [address] Glucose Ql (U) Canceled [facility] Comment on above: Order Comment: TEST URINALYSIS WITH CULTURE IF INDICATED WAS CANCELLED, 08/25/2021 18:59duplicate. Performed By: #### U ARFX ####[address] [address] Hemoglobin Ql (U) Canceled [facility] Comment on above: Order Comment: TEST URINALYSIS WITH CULTURE IF INDICATED WAS CANCELLED, 08/25/2021 18:59duplicate. Performed By: #### U ARFX ####[address] [address] Ketones Ql (U) Canceled [facility] Comment on above: Order Comment: TEST URINALYSIS WITH CULTURE IF INDICATED WAS CANCELLED, 08/25/2021 18:59duplicate. Performed By: #### U ARFX ####[address] [address] Leukocyte esterase Test strip Ql (U) Canceled [facility] Comment on above: Order Comment: TEST URINALYSIS WITH CULTURE IF INDICATED WAS CANCELLED, 08/25/2021 18:59duplicate. Performed By: #### U ARFX ####[address] [address] Nitrite Ql (U) Canceled [facility] Comment on above: Order Comment: TEST URINALYSIS WITH CULTURE IF INDICATED WAS CANCELLED, 08/25/2021 18:59duplicate. Performed By: #### U ARFX ####[address] [address] pH Canceled [facility] Comment on above: Order Comment: TEST URINALYSIS WITH CULTURE IF INDICATED WAS CANCELLED, 08/25/2021 18:59duplicate. Performed By: #### U ARFX ####[address] [address] Protein Ql (U) Canceled [facility] Comment on above: Order Comment: TEST URINALYSIS WITH CULTURE IF INDICATED WAS CANCELLED, 08/25/2021 18:59duplicate. Performed By: #### U ARFX ####[place] [id number] Specific gravity (U) [Rel density] Canceled [facility] Comment on above: Order Comment: TEST URINALYSIS WITH CULTURE IF INDICATED WAS CANCELLED, 08/25/2021 18:59duplicate. Performed By: #### U ARFX ####[address] [address] UROBILINOGEN Canceled [facility] Comment on above: Order Comment: TEST URINALYSIS WITH CULTURE IF INDICATED WAS CANCELLED, 08/25/2021 18:59duplicate. Performed By: #### U ARFX ####[address] [address] Appearance (U) Canceled -Urology -A [facility] Work Phone: Color (U) Canceled HB-Xgdkreb-H [facility] Work Phone: Glucose Ql (U) Canceled -Urology -A [facility] Work Phone: [phone] Ketones Ql (U) Canceled -Urology -A [employer] Work Phone: Leukocyte esterase Test strip Ql (U) Canceled CX-Lnffnnv-Y [facility] Work Phone: Protein (U) [Mass/Vol] Canceled SF-Ylzcafk-Z [facility] Work Phone: RBC (U) [#/Vol] Canceled [employer] Work Phone: [phone] Specific gravity (U) [Rel density] Canceled [employer] Work Phone: [phone] URINALYSIS WITH CULTURE IF INDICATED Canceled [employer] Work Phone: [phone] Comment on above: Concentrations > = 2 0 mg/dL of ascorbic acid can be expected to cause strong interference in the reactions testing for glucose, nitrite and blood. It is recommended to discontinue Vitamin C administration and retest in 10 hours. Color (U) Red See Below QH-Yxcalvf-L [employer] Work Phone: [phone] Comment on above: Reference Range: STR AW,YELLOW Glucose Ql (U) Negative NEGATIVE [employer] Phone: [phone] Ketones Ql (U) Negative NEGATIVE [employer] Phone: [phone] Leukocyte esterase Test strip Ql (U) MODERATE(2+) Abnormal NEGATIVE [employer] Work Phone: [phone] pH (U) 6.0 [pH] 5.0 - 8.0 [employer] Work Phone: [phone] Protein (U) [Mass/Vol] 100(2+) Abnormal NEGATIVE [employer] Phone: [phone] RBC (U) [#/Vol] LARGE(3+) Abnormal NEGATIVE [employer] Work Phone: [phone] Specific gravity (U) [Rel density] 1.017 1 See Below [employer] Work Phone: [phone] Comment on above: Reference Range: 1.0 05 - 1.035 URINALYSIS WITH CULTURE IF INDICATED Negative NEGATIVE [employer] Work Phone: [phone] URINALYSIS WITH CULTURE IF INDICATED <2.0 0.0 - 1.9 [employer] Work Phone: [phone] URINALYSIS WITH CULTURE IF INDICATED HAZY CLEAR [employer] Work Phone: URINE CULTURE,BACTERIALon URINE CULTURE,BACTERIAL PATIENT: SHERIN SANDOVAL LOCATION: [address]#: [id number] : 89 AGE: SEX: F ORDERED BY: DIONICIO MEDINA SOURCE: URINE COLLECTED: 08/25/21 11:35 ANTIBIOTICS AT DELFIN.: RECEIVED : 08/25/21 23:50 SITE: R E S U L T S URINE CULTURE,BACTERIAL FINAL 08/27/21 08:24 NO GROWTH Normal [facility] Comment on above: Performed By: #### U [facility] ####[id number] [place] [address] Urinalysison 08-25-2021 Color (U) Yellow See Below ZR-Ynefrgu-B [employer] Work Phone: Comment on above: Reference Range: STR AW,YELLOW Glucose Ql (U) Negative NEGATIVE -Urology -A [facility] Work Phone: [phone] Ketones Ql (U) Negative NEGATIVE -Urology -A [employer] Phone: [phone] Leukocyte esterase Test strip Ql (U) Negative NEGATIVE GC-Kbiirhp-K [employer] Phone: [phone] pH (U) 5.0 [pH] 5.0 - 8.0 DJ-Mmhkgfv-Z [employer] Phone: [phone] Protein (U) [Mass/Vol] 100(2+) Abnormal NEGATIVE RD-Rosyvyt-C [facility] Work Phone: [phone] RBC (U) [#/Vol] LARGE(3+) Abnormal NEGATIVE MP-Urolog y-A [employer] Work Phone: [phone] Specific gravity (U) [Rel density] 1.025 1 See Below YT-Fkjepeo-E [facility] Work Phone: [phone] Comment on above: Reference Range: 1.0 05 - 1.035 Urinalysis Negative NEGATIVE BD-Xjxradg-V [employer] Work Phone: [phone] Urinalysis <2.0 0.0 - 1.9 RJ-Jlqchil-K shland Work Phone: Urinalysis HAZY CLEAR MZ-Nmekfru-J [employer] Work Phone: [phone] Urinalysis, Microscopicon Urinalysis, Microscopic 2+ Abnormal PH-Wvwxzab-V [employer] Work Phone: Urinalysis, Microscopic FEW ZS-Pfsakqa-P [employer] Work Phone: [phone] Urinalysis, Microscopic 51-100 Abnormal 0-5 KX-Rtczqss-Q [employer] Work Phone: [phone] Urinalysis, Microscopic 5-20 Abnormal 0-5 JK-Hxkwacq-T [employer] Work Phone: [phone] Urinalysis, Microscopic 1+ Abnormal BD-Mdnfyyt-K [employer] Work Phone: [phone] Urinalysis, Microscopic 4+ OR-Dknuyvo-G [employer] Work Phone: [phone] Urinalysis, Microscopic PRESENT Abnormal TP-Erjkeny-A [employer] Work Phone: [phone] Urinalysis, Microscopic 2 {/HPF} WE-Zmastvt-K [employer] Work Phone: [phone] Urinalysis, Microscopic >182 Abnormal 0-5 WK-Oocmuqs-E [employer] Work Phone: [phone] Urinalysis, Microscopic OCC VN-Kvcjerr-M [employer] Work Phone: [phone] Urinalysis, Microscopic 16 {/HPF} Abnormal 0-5 BC-Tchvoso-K [employer] Work Phone: [phone] VITAMIN B12on 08-25-2021 Cobalamin (Vitamin B12) [Mass/Vol] 259 pg/mL Normal 211 - 911 [facility] Comment on above: Performed By: #### L ACT #### [address] [address] Vitamin B12, Serumon 022 Cobalamin (Vitamin B12) [Mass/Vol] 259 pg/mL 211 - 911 BI-Mxcjfqw-V [facility] Work Phone: HCG ( test) Ql (U)O rdered By: Alvaro Lamb on 09-28-2020 Internal Control Pass [facility] POC , UrineOrdered By: Alvaro Lamb on 09-28-2020 HCG ( test) Ql (U) Negative Negative [facility] XR OR Foot Right 1 ViewOrder ed By: Alvaro Lamb on 09-28-2020 Postoperative change s as above. Please see operative report for further details. [employer] Workstation ID: [id number] [facility] EXAMINATION: XR OR F OOT RIGHT 1 VIEW 09/28/2020 8:44 am HISTORY: ORDERING SYSTEM PROVIDED HISTORY: Excision Sherry's/ Retro calcaneal spur right heel, TECHNOLOGIST PROVIDED HISTORY: Illness/Other Reason for exam: Excision Sherry's/ Retro calcaneal spur right heel Encounter Type: Initial Additional signs and symptoms: Fluoro dose in mGy: .03 ORDERING SYSTEM PROVIDED DIAGNOSIS CODES: COMPARISON: Right ankle series December 21, 2019. TECHNIQUE: Single lateral fluoroscopic view of the right hindfoot was submitted from the surgical procedure. Fluoroscopy time is 0.01 minutes. 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 [facility] Interface, Rad In Fu ji Speechq - 09/28/2020 11:00 AM EDT EXAMINATION: XR OR FOOT RIGHT 1 VIEW 09/28/2020 8:44 am HISTORY: ORDERING SYSTEM PROVIDED HISTORY: Excision Sherry's/ Retro calcaneal spur right heel, TECHNOLOGIST PROVIDED HISTORY: Illness/Other Reason for exam: Excision Sherry's/ Retro calcaneal spur right heel Encounter Type: Initial Additional signs and symptoms: Fluoro dose in mGy: .03 ORDERING SYSTEM PROVIDED DIAGNOSIS CODES: COMPARISON: Right ankle series December 21, 2019. TECHNIQUE: Single lateral fluoroscopic view of the right hindfoot was submitted from the surgical procedure. Fluoroscopy time is 0.01 minutes. 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 IMPRESSION: Postoperative changes as above. Please see operative report for further details. [employer] Workstation ID: [id number] [facility] COVID-19, MOLECULARon 2020 SARS-CoV-2 (COVID-19) RNA ELEUTERIO+probe Ql (Unsp spec) Not detected Normal Not Detected [facility] Comment on above: Order Comment: : COV ID-19 Lab Test Only (OP in UTM) Alvaro Lamb, PH: [phone] Result Comment: This test was performed under the FDA's Emergency Use Authorization (EUA). Testing was performed using the Simplexa SARS-CoV-2 RT-PCR assay ([employer]) on the Intern platform. This test has not been approved for use in asymptomatic patients and its performance in this patient population has not been evaluated. Negative results do not rule out the presence of SARS-CoV-2/COVID-19. Fact sheets for this EUA can be found at the following links: For Healthcare Providers: https://www.fda.gov/media/764681/download For Patients: https://www.fda.gov/media/921058/download Performed By: #### L [id number] #### [facility] [address] [place] [address] Sawyer Rayn M.D. [id number] Basic metabolic 2000 panelOr dered By: Mildred Wagner on 09-14-2020 Anion gap [Moles/Vol] 9 mmol/L Low 10 - 2 0 mmol/L [facility] Calcium [Mass/Vol] 8.8 mg/dL 8.4 - 10. 2 mg/dL [facility] Chloride [Moles/Vol] 107 mmol/L 98 - 10 8 mmol/L [facility] Creatinine [Mass/Vol] 0.68 mg/dL 0.40 - 1.10 [facility] GFR/1.73 sq M.predicted CKD-EPI (S/P/Bld) [Vol rate/Area] 121 >=60 mL/min/1.73 m2 [facility] Glucose [Mass/Vol] 99 mg/dL 65 - 99 mg/dL [facility] HCO3 [Moles/Vol] 26 mmol/L 21 - 32 mmol/L [facility] Interpretation and review of laboratory results Abnormal [facility] Potassium [Moles/Vol] 4.3 mmol/L 3.5 - 5.1 mmol/L [facility] Sodium [Moles/Vol] 138 mmol/L 135 - 145 mmol/L [facility] Urea nitrogen [Mass/Vol] 10 mg/dL 8 - 25 mg/dL [facility] Urea nitrogen/Creatinine [Mass ratio] 14.7 mg/mg [facility] The eGFR should be u sed for monitoring renal function only and not for medication dosing. [facility] CBC WITH AUTO DIFFERENTIALOr dered By: Mildred Wagner on 09-14-2020 Basophils (Bld) [#/Vol] 0.06 10*3/uL [facility] Basophils/100 WBC (Bld) 0.7 % [facility] Eosinophils (Bld) [#/Vol] 0.23 10*3/uL [facility] Eosinophils/100 WBC (Bld) 2.7 % [facility] Erythrocyte distribution width (RBC) [Entitic vol] 14.9 % High 11.6 - 14.8 % [facility] Hematocrit (Bld) [Volume fraction] 37.3 % 36.0 - 46.0 % [facility] Hemoglobin (Bld) [Mass/Vol] 11.9 g/dL Low 12.0 - 16.0 g/dL [facility] Immature granulocytes (Bld) [#/Vol] 0.03 10*3/uL [facility] Immature granulocytes/100 WBC (Bld) 0.40 % [facility] Comment on above: The IG parameter is the percentage of metamyelocytes, myelocytes and promyelocytes. An immature granulocyte count (IG) of 1% or more suggests the possibility of infection, an IG count of 3% is very likely related to an infection. Interpretation and review of laboratory results Abnormal [facility] Lymphocytes (Bld) [#/Vol] 2.28 10*3/uL [facility] Lymphocytes/100 WBC (Bld) 27.1 % [facility] MCH (RBC) [Entitic mass] 24.3 pg Low 26.0 - 34.0 pg [facility] MCHC (RBC) [Mass/Vol] 31.9 g/dL 31.0 - 37.0 g/dL [facility] MCV (RBC) [Entitic vol] 76.1 fL Low 80.0 - 100.0 fL [facility] Monocytes (Bld) [#/Vol] 0.52 10*3/uL [facility] Monocytes/100 WBC (Bld) 6.2 % [facility] Neutrophils (Bld) [#/Vol] 5.28 10*3/uL [facility] Neutrophils/100 WBC (Bld) 62.9 % [facility] Comment on above: Peripheral smear rev iewed manually Nucleated RBC (Bld) [#/Vol] 0.00 10*3/uL [facility] Nucleated RBC/100 WBC (Bld) [Ratio] 0.0 % [facility] Platelet mean volume (Bld) [Entitic vol] 10.7 fL 9.4 - 12.4 fL [facility] Platelets (Bld) [#/Vol] 251 10*3/uL [facility] Comment on above: Platelets clumped on smear but appear normal. If clinically indicated, please request a citrate platelet count RBC (Bld) [#/Vol] 4.90 10*6/uL [facility] WBC (Bld) [#/Vol] 8.40 10*3/uL [facility] MORPHOLOGYOrdered By: Mildred Wagner on 09-14-2020 RBC morphology finding Nom (Bld) See Comment [facility] Comment on above: RBC Indices confirme d with manual peripheral smear review. XR ANKLE RIGHT 3+ VIEWS (STA NDARD)on 12-21-2019 No obvious radiograp hic evidence for acute displaced fracture or malalignment. Workstation ID: [id number] [facility] EXAMINATION: XR ANKL E RIGHT 3+ VIEWS (STANDARD) 12/21/2019 6:29 pm HISTORY: ORDERING SYSTEM PROVIDED HISTORY: pain and swelling of the lateral aspect secondary to a fall yesterday, TECHNOLOGIST PROVIDED HISTORY: Injury/Trauma Reason for exam: pain, swelling Cancer History: no Surgery, RadiationHistory: no Encounter Type: Initial Mechanism of injury: fall yesterday ORDERING SYSTEM PROVIDED DIAGNOSIS CODES: S99.911A Injury, ankle, right, initial encounter M25.571 Acute right ankle pain COMPARISON: None FINDINGS: No acute fracture is seen. Alignment of the osseous structures is normal. The joint spaces are preserved. The soft tissues appear unremarkable. [facility] Interface, Rad In Fu ji Speechq - 12/21/2019 7:19 PM EDT EXAMINATION: XR ANKLE RIGHT 3+ VIEWS (STANDARD) 12/21/2019 6:29 pm HISTORY: ORDERING SYSTEM PROVIDED HISTORY: pain and swelling of the lateral aspect secondary to a fall yesterday, TECHNOLOGIST PROVIDED HISTORY: Injury/Trauma Reason for exam: pain, swelling Cancer History: no Surgery, RadiationHistory: no Encounter Type: Initial Mechanism of injury: fall yesterday ORDERING SYSTEM PROVIDED DIAGNOSIS CODES: S99.911A Injury, ankle, right, initial encounter M25.571 Acute right ankle pain COMPARISON: None FINDINGS: No acute fracture is seen. Alignment of the osseous structures is normal. The joint spaces are preserved. The soft tissues appear unremarkable. IMPRESSION: No obvious radiographic evidence for acute displaced fracture or malalignment. Workstation ID: [id number] [facility] XR ANKLE RIGHT 3+ VIEWS (STANDARD) EXAMINATION: XR ANKLE RIGHT 3+ VIEWS (STANDARD) 12/21/2019 6:29 pm HISTORY: ORDERING SYSTEM PROVIDED HISTORY: pain and swelling of the lateral aspect secondary to a fall yesterday, TECHNOLOGIST PROVIDED HISTORY: Injury/Trauma Reason for exam: pain, swelling Cancer History: no Surgery, RadiationHistory: no Encounter Type: Initial Mechanism of injury: fall yesterday ORDERING SYSTEM PROVIDED DIAGNOSIS CODES: S99.911A Injury, ankle, right, initial encounter M25.571 Acute right ankle pain COMPARISON: None FINDINGS: No acute fracture is seen. Alignment of the osseous structures is normal. The joint spaces are preserved. The soft tissues appear unremarkable. IMPRESSION: No obvious radiographic evidence for acute displaced fracture or malalignment. Workstation ID: [id number] Dictated by: VIVEK VEE on SatDec 21, 2019 7:16:30 PM EDT Transcribed by: VIVEK VEE on SatDec 21, 2019 7:16:30 PM EDT Finalized by: VIVEK VEE on SatDec 21, 2019 7:16:30 PM EDT Normal [facility] Comment on above: Order Comment: Injur y/Trauma or Illness?:Injury/Trauma How long have you had these symptoms (acute/chronic)?:Acute Reason for exam?:pain, swelling History of cancer?:no Surgeries, chemotherapy, or radiation?:no Type of Exam?:Initial Mechanism of injury?:fall yesterday Auto Diffon 01-20-2019 Basophils (Bld) [#/Vol] 0.1 E3/mcL Normal 0.0-0.2 [facility] Comment on above: Order Comment: Order Added by Discern Expert. Performed By: #### 2 [id number] #### [employer] [address] [place] [address] Basophils/100 WBC (Bld) 0.9 % Normal 0.0-2.0 [facility] Comment on above: Order Comment: Order Added by Discern Expert. Performed By: #### 2 [id number] #### [employer] [address] [place] [address] Eos Absolute 0.1 E3/mcL Normal 0.0-0.7 [facility] Comment on above: Order Comment: Order Added by Discern Expert. Performed By: #### 2 [id number] #### [employer] [address] [place] [address] Eosinophils/100 WBC (Bld) 2.0 % Normal 0.0-11.0 [facility] Comment on above: Order Comment: Order Added by Discern Expert. Performed By: #### 2 [id number] #### [employer] [address] [place] [address] Lymphocytes (Bld) [#/Vol] 1.9 E3/mcL Normal 1.2-3.4 [facility] Comment on above: Order Comment: Order Added by Discern Expert. Performed By: #### 2 [id number] #### [employer] [address] [place] [address] Lymphocytes/100 WBC (Bld) 28.7 % Normal 20.0-55.0 [facility] Comment on above: Order Comment: Order Added by Discern Expert. Performed By: #### 2 [id number] #### [employer] [address] [place] [address] Freeborn Absolute 0.4 E3/mcL Normal 0.0-0.7 [facility] Comment on above: Order Comment: Order Added by Discern Expert. Performed By: #### 2 [id number] #### [employer] [address] [place] [address] Monocytes/100 WBC (Bld) 6.1 % Normal 0.0-10.0 [facility] Comment on above: Order Comment: Order Added by Discern Expert. Performed By: #### 2 [id number] #### [employer] [address] [place] [address] 61764 Neutro Absolute 4.2 E3/mcL Normal 1.4-6.5 [facility] Comment on above: Order Comment: Order Added by Discern Expert. Performed By: #### 2 [id number] #### [employer] [address] [place] [address] 68141 Neutro Auto 62.3 % Normal 37.0-75.0 [facility] Comment on above: Order Comment: Order Added by Discern Expert. Performed By: #### 2 [id number] #### [employer] [facility] [place] [id number] CBC w/ Auto Diffon 9 Erythrocyte distribution width (RBC) [Ratio] 20.0 % High 11.5-14.5 [facility] Comment on above: Performed By: #### 2 [id number] #### [employer] [facility] [place] [id number] Hematocrit (Bld) [Volume fraction] 39.4 % Normal 36.0-48.0 [facility] Comment on above: Performed By: #### 2 658348 #### [employer] [address] [place], [place] [id number] Hemoglobin (Bld) [Mass/Vol] 13.1 g/dL Normal 12.0-16.0 [facility] Comment on above: Performed By: #### 2 [id number] #### [employer] [address] [place], [place] [phone] MCH (RBC) [Entitic mass] 26.6 pg Low 27.0-31.0 [facility] Comment on above: Performed By: #### 2 [id number] #### [employer] [address] [place], [place] [phone] MCHC (RBC) [Mass/Vol] 33.4 g/dL Normal 33.0-37.0 [facility] Comment on above: Performed By: #### 2 [id number] #### [employer] [address] [place] [address] 57094 MCV (RBC) [Entitic vol] 79.9 fL Normal 78.0-100.0 [facility] Comment on above: Performed By: #### 2 878014 #### [employer] [facility] [place] [address] Platelet mean volume (Bld) [Entitic vol] 8.3 fL Normal 7.4-11.0 [facility] Comment on above: Performed By: #### 2 [id number] #### [employer] [address] [place] [address]114 Platelets (Bld) [#/Vol] 352 E3/mcL Normal 130-400 [facility] Comment on above: Performed By: #### 2 [id number] #### [employer] [address] [place] [address] 35876 RBC (Bld) [#/Vol] 4.93 E6/mcL Normal 3.90-5.40 [facility] Comment on above: Performed By: #### 2 305225 #### [employer] [address] [place] [address] 26099 WBC (Bld) [#/Vol] 6.7 E3/mcL Normal 3.6-11.0 [facility] Comment on above: Performed By: #### 2 [id number] #### [employer] [address] [place] [address] 24540 Ferritinon 01-20-2019 Ferritin [Mass/Vol] 103.0 ng/mL Normal 8.0-150.0 [facility] Comment on above: Performed By: #### 2 [id number] #### [employer] [address] [place] [address] 03672 Iron Testson 01-20-2019 Iron [Mass/Vol] 84 microgram/dL Normal 35-150 [facility] Comment on above: Performed By: #### 2 [id number] #### [employer] [address] [place] [address] 89602 Iron Sat 29 Normal 11-46 [facility] Comment on above: Performed By: #### 2 [id number] #### [employer] [address] [place] [address] 95379 TIBC 293 microgram/dL Normal >=250 [facility] Comment on above: Performed By: #### 2 [id number] #### [employer] [address] [place] [address] Transferrin [Mass/Vol] 209 mg/dL Normal 200-360 [facility] Comment on above: Performed By: #### 2 [id number] #### [employer] [address] [place] [address] Morphon 01-20-2019 Anisocytosis Ql (Bld) 1+ Normal [facility] Comment on above: Order Comment: Order Added by Discern Expert. Performed By: #### 2 [id number] #### [employer] [facility] [place] [address] RBC morphology finding Nom (Bld) SEE MORPHOLOGY Normal [facility] Comment on above: Order Comment: Order Added by Discern Expert. Performed By: #### 2 [id number] #### [employer] [facility] [place] [address] zzplt morphon 01-20-2019 Platelet morphology finding Nom (Bld) NORMAL Normal [facility] Comment on above: Performed By: #### 2 [id number] #### [employer] [facility] [place] [address] Platelets (Bld) [#/Vol] NORMAL Normal [facility] Comment on above: Performed By: #### 2 [id number] #### [employer] [address] [place] [address] Testost Totalon 12-25-2018 Testoster Tot 21 ng/dL Normal 8-48 [facility] Comment on above: Result Comment: Perf ormed At: CB [facility] [address] [id number] Elizabeth Suarez PhD Ph:[phone] Performed By: #### 2 [id number] #### [employer] [address] [place] [address] TSHon 12-24-2018 TSH Qn 2.96 mcIU/mL Normal 0.30-5.60 [facility] Comment on above: Performed By: #### 2 [id number] #### [employer] [address] [place] [address] Lab Miscellaneouson 12-13-19 19 Status See Ref Lab Report Normal [facility] Comment on above: Performed By: #### 2 [id number] #### [employer] [address] [place] [address] US Pelvis Non-OB Completeon 12-12-2018 US Pelvis Non-OB Complete Exam Date/Time: 12/11/2018 11:10 EDT Reason for Exam: OLIGOMENORRHEA;Abnormal vaginal bleeding Report STUDY: US Pelvis Non-OB Complete; US Transvaginal Non-OB; 12/11/2018 11:10 am INDICATION: Abnormal vaginal bleeding. COMPARISON: Ultrasound dated 01/08/2018 ACCESSION NUMBER(S): [id number]; [id number] ORDERING CLINICIAN: Cherry Webb TECHNIQUE: Multiple multiplanar static evangelista scale, color and spectral waveform sonographic images of the pelvis were obtained. Transabdominal and endovaginal ultrasound was performed. FINDINGS: UTERUS: The uterus is grossly unremarkable in appearance. The uterus measures at 8.6 cm in length and 4.3 x 4.8 cm in AP and transverse diameters. ENDOMETRIUM: The endometrium measures a thickness of 13 mm, which is at the upper limits of normal for thickness. RIGHT ADNEXA: The right ovary measures at 3.8 x 2.2 x 2.5 cm. Normal-appearing color Doppler flow is seen in the right ovary. No right adnexal mass is identified. LEFT ADNEXA: The left ovary measures at 4.1 x 1.3 x 2.4 cm. Normal-appearing color Doppler flow is seen in the left ovary. No left adnexal masses identified. CUL DE SAC: No free fluid is identified. IMPRESSION: Exam Date/Time: 12/11/2018 11:10 EDT Report 1. Endometrial at the upper limits of normal for thickness, as above. Clinical correlation is recommended. 2. Otherwise unremarkable ultrasound appearance of the pelvis. FINAL REPORT Dictated: 12/12/2018 9:49 am Dion Blue MD Signed (Electronic Signature): 12/12/2018 9:49 am Signed by: Dion Blue MD Technologist: YESI [facility] US Transvaginal Non-OBon US Transvaginal Non-OB Exam Date/Time: 12/11/2018 11:10 EDT Reason for Exam: OLIGOMENORRHEA;Abnormal vaginal bleeding Report STUDY: US Pelvis Non-OB Complete; US Transvaginal Non-OB; 12/11/2018 11:10 am INDICATION: Abnormal vaginal bleeding. COMPARISON: Ultrasound dated 01/08/2018 ACCESSION NUMBER(S): [id number]; [id number] ORDERING CLINICIAN: Cherry Webb TECHNIQUE: Multiple multiplanar static evangelista scale, color and spectral waveform sonographic images of the pelvis were obtained. Transabdominal and endovaginal ultrasound was performed. FINDINGS: UTERUS: The uterus is grossly unremarkable in appearance. The uterus measures at 8.6 cm in length and 4.3 x 4.8 cm in AP and transverse diameters. ENDOMETRIUM: The endometrium measures a thickness of 13 mm, which is at the upper limits of normal for thickness. RIGHT ADNEXA: The right ovary measures at 3.8 x 2.2 x 2.5 cm. Normal-appearing color Doppler flow is seen in the right ovary. No right adnexal mass is identified. LEFT ADNEXA: The left ovary measures at 4.1 x 1.3 x 2.4 cm. Normal-appearing color Doppler flow is seen in the left ovary. No left adnexal masses identified. CUL DE SAC: No free fluid is identified. IMPRESSION: Exam Date/Time: 12/11/2018 11:10 EDT Report 1. Endometrial at the upper limits of normal for thickness, as above. Clinical correlation is recommended. 2. Otherwise unremarkable ultrasound appearance of the pelvis. FINAL REPORT Dictated: 12/12/2018 9:49 am Dion Blue MD Signed (Electronic Signature): 12/12/2018 9:49 am Signed by: Dion Blue MD Technologist: BS Normal [facility] Lab Miscellaneouson 12-10-19 Test Name celiac panel Normal [facility] Comment on above: Performed By: #### 2 [id number] #### [employer] [facility] [place] [id number] Auto Diffon 11-24-2018 Basophils (Bld) [#/Vol] 0.1 E3/mcL Normal 0.0-0.2 [facility] Comment on above: Order Comment: Order Added by Discern Expert. Performed By: #### 2 [id number] #### [employer] [address] [place] [address] Basophils/100 WBC (Bld) 1.0 % Normal 0.0-2.0 [facility] Comment on above: Order Comment: Order Added by Discern Expert. Performed By: #### 2 [id number] #### [employer] [address] [place] [address] Eos Absolute 0.2 E3/mcL Normal 0.0-0.7 [facility] Comment on above: Order Comment: Order Added by Discern Expert. Performed By: #### 2 780695 #### [employer] [address] [place] [address]01 Eosinophils/100 WBC (Bld) 2.4 % Normal 0.0-11.0 [facility] Comment on above: Order Comment: Order Added by Discern Expert. Performed By: #### 2 [id number] #### [employer] [address] [place] [address] 92971 Lymphocytes (Bld) [#/Vol] 2.1 E3/mcL Normal 1.2-3.4 [facility] Comment on above: Order Comment: Order Added by Discern Expert. Performed By: #### 2 [id number] #### [employer] [address] [place] [address] 60746 Lymphocytes/100 WBC (Bld) 27.7 % Normal 20.0-55.0 [facility] Comment on above: Order Comment: Order Added by Discern Expert. Performed By: #### 2 [id number] #### [employer] [address] [place] [address] 41771 Freeborn Absolute 0.4 E3/mcL Normal 0.0-0.7 [facility] Comment on above: Order Comment: Order Added by Discern Expert. Performed By: #### 2 [id number] #### TIFFANIE Datalink [address] [place] [address] 73780 Monocytes/100 WBC (Bld) 5.6 % Normal 0.0-10.0 [facility] Comment on above: Order Comment: Order Added by Discern Expert. Performed By: #### 2 [id number] #### TIFFANIE [employer]ink [address] [place] [address] 71978 Neutro Absolute 4.8 E3/mcL Normal 1.4-6.5 [facility] Comment on above: Order Comment: Order Added by Discern Expert. Performed By: #### 2 [id number] #### TIFFANIE [employer]ink [address] [place] [address] 84013 Neutro Auto 63.3 % Normal 37.0-75.0 [facility] Comment on above: Order Comment: Order Added by Discern Expert. Performed By: #### 2 [id number] #### TIFFANIE Datalink [facility] [place] [address] CBC w/ Auto Diffon Erythrocyte distribution width (RBC) [Ratio] 16.3 % High 11.5-14.5 [facility] Comment on above: Performed By: #### 8 [id number] #### TIFFANIE Urinalysis Automated Subsection [facility] [place] [id number] Hematocrit (Bld) [Volume fraction] 34.6 % Low 36.0-48.0 [facility] Comment on above: Performed By: #### 8 [id number] #### TIFFANIE Urinalysis Automated Subsection [facility] [place] [address] Hemoglobin (Bld) [Mass/Vol] 11.0 g/dL Low 12.0-16.0 [facility] Comment on above: Performed By: #### 8 [id number] #### TIFFANIE Urinalysis Automated Subsection [address] [place], [place] [id number] MCH (RBC) [Entitic mass] 23.8 pg Low 27.0-31.0 [facility] Comment on above: Performed By: #### 8 [id number] #### TIFFANIE Urinalysis Automated Subsection [address] [place], [place] [id number] MCHC (RBC) [Mass/Vol] 31.7 g/dL Low 33.0-37.0 [facility] Comment on above: Performed By: #### 8 [id number] #### TIFFANIE Urinalysis Automated Subsection [address] [place] [address] 58919 MCV (RBC) [Entitic vol] 75.3 fL Low 78.0-100.0 [facility] Comment on above: Performed By: #### 8 [id number] #### TIFFANIE Urinalysis Automated Subsection [address] [place] [address] 02315 Platelet mean volume (Bld) [Entitic vol] 7.9 fL Normal 7.4-11.0 [facility] Comment on above: Performed By: #### 8 [id number] #### TIFFANIE Urinalysis Automated Subsection [address] [place] [address] 86448 Platelets (Bld) [#/Vol] 399 E3/mcL Normal 130-400 [facility] Comment on above: Performed By: #### 8 [id number] #### TIFFANIE Urinalysis Automated Subsection [facility] [place] [id number] RBC (Bld) [#/Vol] 4.60 E6/mcL Normal 3.90-5.40 [facility] Comment on above: Performed By: #### 8 [id number] #### TIFFANIE Urinalysis Automated Subsection [facility] [place] [id number] WBC (Bld) [#/Vol] 7.5 E3/mcL Normal 3.6-11.0 [facility] Comment on above: Performed By: #### 8 [id number] #### TIFFANIE Urinalysis Automated Subsection [address] [place] [address] Ferritinon 11-24-2018 Ferritin [Mass/Vol] 7.0 ng/mL Low 8.0-150.0 [facility] Comment on above: Performed By: #### 8 [id number] #### TIFFANIE Urinalysis Automated Subsection [address] [place] [address] Folateon 11-24-2018 Folate Lvl 13.40 ng/mL Normal >=4.00 [facility] Comment on above: Result Comment: The WHO Technical Consultation on folate and vitamin B12 deficiencies has determined that deficient folate concentrations are considered to be less than 4ng/ml. Performed By: #### 8 [id number] #### TIFFANIE Urinalysis Automated Subsection [address] [place] [address] Ironon 11-24-2018 Iron [Mass/Vol] 25 microgram/dL Low 35-150 [facility] Comment on above: Performed By: #### 8 [id number] #### TIFFANIE Urinalysis Automated Subsection [address] [place] [address] Morphon 11-24-2018 Anisocytosis Ql (Bld) 1+ Normal [facility] Comment on above: Order Comment: Order Added by Discern Expert. Performed By: #### 8 [id number] #### TIFFANIE Urinalysis Automated Subsection [address] [place] [address] Hypochromasia 2+ Normal [facility] Comment on above: Order Comment: Order Added by Discern Expert. Performed By: #### 8 [id number] #### TIFFANIE Urinalysis Automated Subsection [facility] [place] [address] RBC morphology finding Nom (Bld) SEE MORPHOLOGY Normal [facility] Comment on above: Order Comment: Order Added by Discern Expert. Performed By: #### 8 [id number] #### TIFFANIE Urinalysis Automated Subsection [facility] [place] [address] TIBC Calculatedon 11-24-2018 TIBC 480 microgram/dL Normal >=250 [facility] Comment on above: Performed By: #### 8 [id number] #### TIFFANIE Urinalysis Automated Subsection [facility] [place] [id number] Transferrin [Mass/Vol] 343 mg/dL Normal 200-360 [facility] Comment on above: Performed By: #### 8 [id number] #### TIFFANIE Urinalysis Automated Subsection [address] [place] [address] Vit B12on 11-24-2018 Cobalamin (Vitamin B12) [Mass/Vol] 246 pg/mL Normal 180-914 [facility] Comment on above: Performed By: #### 8 [id number] #### TIFFANIE Urinalysis Automated Subsection [facility] [place] [address] zzplt morphon 11-24-2018 Platelet morphology finding Nom (Bld) NORMAL Normal [facility] Comment on above: Performed By: #### 8 [id number] #### TIFFANIE Urinalysis Automated Subsection [facility] [place] [id number] Platelets (Bld) [#/Vol] NORMAL Normal [facility] Comment on above: Performed By: #### 8 [id number] #### TIFFANIE Urinalysis Automated Subsection [address] [place], [place] [id number] C Urineon 10-31-2018 C Urine Final Report: Modera te growth of Normal skin kalyan isolated Normal [facility] Comment on above: Performed By: #### 8 [id number] #### TIFFANIE Urinalysis Automated Subsection [address] [place] [address] Auto Diffon 10-21-2018 Basophils (Bld) [#/Vol] 0.1 E3/mcL Normal 0.0-0.2 [facility] Comment on above: Order Comment: Order Added by Discern Expert. Performed By: #### 8 [id number] #### TIFFANIE Urinalysis Automated Subsection [facility] [place] [address] Basophils/100 WBC (Bld) 1.1 % Normal 0.0-2.0 [facility] Comment on above: Order Comment: Order Added by Discern Expert. Performed By: #### 8 [id number] #### TIFFANIE Urinalysis Automated Subsection [address] [place] [address] 75961 Eos Absolute 0.2 E3/mcL Normal 0.0-0.7 [facility] Comment on above: Order Comment: Order Added by Discern Expert. Performed By: #### 8 [id number] #### TIFFANIE Urinalysis Automated Subsection [address] [place] [address] 65573 Eosinophils/100 WBC (Bld) 2.2 % Normal 0.0-11.0 [facility] Comment on above: Order Comment: Order Added by Jimy Expert. Performed By: #### 8 [id number] #### TIFFANIE Urinalysis Automated Subsection [address] [place] [address] 03622 Lymphocytes (Bld) [#/Vol] 2.0 E3/mcL Normal 1.2-3.4 [facility] Comment on above: Order Comment: Order Added by Discern Expert. Performed By: #### 8 [id number] #### TIFFANIE Urinalysis Automated Subsection [address] [place] [address] 52198 Lymphocytes/100 WBC (Bld) 28.8 % Normal 20.0-55.0 [facility] Comment on above: Order Comment: Order Added by Discern Expert. Performed By: #### 8 [id number] #### TIFFANIE Urinalysis Automated Subsection [address] [place] [address] 08333 Freeborn Absolute 0.4 E3/mcL Normal 0.0-0.7 [facility] Comment on above: Order Comment: Order Added by Discern Expert. Performed By: #### 8 [id number] #### TIFFANIE Urinalysis Automated Subsection [address] [place] [address] 43942 Monocytes/100 WBC (Bld) 6.4 % Normal 0.0-10.0 [facility] Comment on above: Order Comment: Order Added by Discern Expert. Performed By: #### 8 [id number] #### TIFFANIE Urinalysis Automated Subsection [address] [place] [address] Neutro Absolute 4.3 E3/mcL Normal 1.4-6.5 [facility] Comment on above: Order Comment: Order Added by Discern Expert. Performed By: #### 8 [id number] #### TIFFANIE Urinalysis Automated Subsection [address] [place] [address] Neutro Auto 61.5 % Normal 37.0-75.0 [facility] Comment on above: Order Comment: Order Added by Discern Expert. Performed By: #### 8 [id number] #### TIFFANIE Urinalysis Automated Subsection [address] [place] [address] CBC w/ Auto Diffon 9 Erythrocyte distribution width (RBC) [Ratio] 17.9 % High 11.5-14.5 [facility] Comment on above: Performed By: #### 2 [id number] #### TIFFANIE Urinalysis Manual Subsection [address] [place] [address] Hematocrit (Bld) [Volume fraction] 34.0 % Low 36.0-48.0 [facility] Comment on above: Performed By: #### 2 [id number] #### TIFFANIE Urinalysis Manual Subsection [address] [place] [address] Hemoglobin (Bld) [Mass/Vol] 10.9 g/dL Low 12.0-16.0 [facility] Comment on above: Performed By: #### 2 [id number] #### ITFFANIE Urinalysis Manual Subsection [address] [place] [address] MCH (RBC) [Entitic mass] 23.6 pg Low 27.0-31.0 [facility] Comment on above: Performed By: #### 2 [id number] #### TIFFANIE Urinalysis Manual Subsection [address] [place] [address] MCHC (RBC) [Mass/Vol] 32.1 g/dL Low 33.0-37.0 [facility] Comment on above: Performed By: #### 2 [id number] #### TIFFANIE Urinalysis Manual Subsection [address] [place] [address] MCV (RBC) [Entitic vol] 73.5 fL Low 78.0-100.0 [facility] Comment on above: Performed By: #### 2 [id number] #### TIFFANIE Urinalysis Manual Subsection [address] [place] [address] Platelet mean volume (Bld) [Entitic vol] 8.4 fL Normal 7.4-11.0 [facility] Comment on above: Performed By: #### 2 [id number] #### TIFFANIE Urinalysis Manual Subsection [address] [place] [address] Platelets (Bld) [#/Vol] 413 E3/mcL High 130-400 [facility] Comment on above: Performed By: #### 2 [id number] #### TIFFANIE Urinalysis Manual Subsection [address] [place] [address] RBC (Bld) [#/Vol] 4.62 E6/mcL Normal 3.90-5.40 [facility] Comment on above: Performed By: #### 2 [id number] #### TIFFANIE Urinalysis Manual Subsection [facility] [place] [address] WBC (Bld) [#/Vol] 6.9 E3/mcL Normal 3.6-11.0 [facility] Comment on above: Performed By: #### 2 [id number] #### TIFFANIE Urinalysis Manual Subsection [address] [place] [address] Ironon 10-21-2018 Iron [Mass/Vol] 32 microgram/dL Low 35-150 [facility] Comment on above: Performed By: #### 2 [id number] #### TIFFANIE Urinalysis Manual Subsection [address] [place] [address] Morphon 10-21-2018 Anisocytosis Ql (Bld) 2+ Normal [facility] Comment on above: Order Comment: Order Added by Discern Expert. Performed By: #### 2 [id number] #### TIFFANIE Urinalysis Manual Subsection [address] [place] [address] Elliptocytes 1+ Normal [facility] Comment on above: Order Comment: Order Added by Discern Expert. Performed By: #### 2 [id number] #### TIFFANIE Urinalysis Manual Subsection [address] [place] [address] Hypochromasia 2+ Normal [facility] Comment on above: Order Comment: Order Added by Discern Expert. Performed By: #### 2 [id number] #### TIFFANIE Urinalysis Manual Subsection [address] [place] [address] Microcyte 2+ Normal [facility] Comment on above: Order Comment: Order Added by Discern Expert. Performed By: #### 2 [id number] #### TIFFANIE Urinalysis Manual Subsection [address] [place] [address] RBC morphology finding Nom (Bld) SEE MORPHOLOGY Normal [facility] Comment on above: Order Comment: Order Added by Discern Expert. Performed By: #### 2 [id number] #### TIFFANIE Urinalysis Manual Subsection [address] [place] [address] zzplt morphon 10-21-2018 Platelet morphology finding Nom (Bld) NORMAL Normal [facility] Comment on above: Performed By: #### 2 [id number] #### TIFFANIE Urinalysis Manual Subsection [address] [place] [address] Platelets (Bld) [#/Vol] INCREASED Normal [facility] Comment on above: Performed By: #### 2 [id number] #### TIFFANIE Urinalysis Manual Subsection [address] [place] [address] Auto Diffon 09-17-2018 Basophils (Bld) [#/Vol] 0.1 E3/mcL Normal 0.0-0.2 [facility] Comment on above: Order Comment: Order Added by Discern Expert. Performed By: #### 2 [id number] #### TIFFANIE Urinalysis Manual Subsection [address] [place] [address] Basophils/100 WBC (Bld) 1.0 % Normal 0.0-2.0 [facility] Comment on above: Order Comment: Order Added by Discern Expert. Performed By: #### 2 [id number] #### TIFFANIE Urinalysis Manual Subsection [address] [place] [address] Eos Absolute 0.2 E3/mcL Normal 0.0-0.7 [facility] Comment on above: Order Comment: Order Added by Discern Expert. Performed By: #### 2 [id number] #### TIFFANIE Urinalysis Manual Subsection [address] [place] [address] 49131 Eosinophils/100 WBC (Bld) 2.3 % Normal 0.0-11.0 [facility] Comment on above: Order Comment: Order Added by Discern Expert. Performed By: #### 2 [id number] #### TIFFANIE Urinalysis Manual Subsection [address] [place] [address] 17107 Lymphocytes (Bld) [#/Vol] 2.6 E3/mcL Normal 1.2-3.4 [facility] Comment on above: Order Comment: Order Added by Discern Expert. Performed By: #### 2 [id number] #### TIFFANIE Urinalysis Manual Subsection [address] [place] [address] 18672 Lymphocytes/100 WBC (Bld) 36.2 % Normal 20.0-55.0 [facility] Comment on above: Order Comment: Order Added by Discern Expert. Performed By: #### 2 [id number] #### TIFFANIE Urinalysis Manual Subsection [address] [place] [address] 11883 Freeborn Absolute 0.4 E3/mcL Normal 0.0-0.7 [facility] Comment on above: Order Comment: Order Added by Discern Expert. Performed By: #### 2 [id number] #### TIFFANIE Urinalysis Manual Subsection [address] [place] [address] 64798 Monocytes/100 WBC (Bld) 5.7 % Normal 0.0-10.0 [facility] Comment on above: Order Comment: Order Added by Discern Expert. Performed By: #### 2 [id number] #### TIFFANIE Urinalysis Manual Subsection [address] [place] [address] 77200 Neutro Absolute 4.0 E3/mcL Normal 1.4-6.5 [facility] Comment on above: Order Comment: Order Added by Discern Expert. Performed By: #### 2 [id number] #### TIFFANIE Urinalysis Manual Subsection [address] [place] [address] 02168 Neutro Auto 54.8 % Normal 37.0-75.0 [facility] Comment on above: Order Comment: Order Added by Discern Expert. Performed By: #### 2 [id number] #### TIFFANIE Urinalysis Manual Subsection [address] [place] [address] 53187 CBC w/ Auto Diffon Erythrocyte distribution width (RBC) [Ratio] 17.9 % High 11.5-14.5 [facility] Comment on above: Performed By: #### 2 [id number] #### TIFFANIE Urinalysis Manual Subsection [address] [place] [address] 12611 Hematocrit (Bld) [Volume fraction] 34.6 % Low 36.0-48.0 [facility] Comment on above: Performed By: #### 2 [id number] #### TIFFANIE Urinalysis Manual Subsection [address] [place] [address] 31497 Hemoglobin (Bld) [Mass/Vol] 11.1 g/dL Low 12.0-16.0 [facility] Comment on above: Performed By: #### 2 [id number] #### TIFFANIE Urinalysis Manual Subsection [address] [place] [address] MCH (RBC) [Entitic mass] 23.2 pg Low 27.0-31.0 [facility] Comment on above: Performed By: #### 2 [id number] #### TIFFANIE Urinalysis Manual Subsection [address] [place] [address] 01530 MCHC (RBC) [Mass/Vol] 32.1 g/dL Low 33.0-37.0 [facility] Comment on above: Performed By: #### 2 [id number] #### TIFFANIE Urinalysis Manual Subsection [address] [place] [address] 81669 MCV (RBC) [Entitic vol] 72.3 fL Low 78.0-100.0 [facility] Comment on above: Performed By: #### 2 [id number] #### TIFFANIE Urinalysis Manual Subsection [address] [place] [address] 17672 Platelet mean volume (Bld) [Entitic vol] 8.1 fL Normal 7.4-11.0 [facility] Comment on above: Performed By: #### 2 [id number] #### TIFFANIE Urinalysis Manual Subsection [address] [place] [address] 44946 Platelets (Bld) [#/Vol] 439 E3/mcL High 130-400 [facility] Comment on above: Performed By: #### 2 [id number] #### TIFFANIE Urinalysis Manual Subsection [address] [place] [address] RBC (Bld) [#/Vol] 4.78 E6/mcL Normal 3.90-5.40 [facility] Comment on above: Performed By: #### 2 [id number] #### TIFFANIE Urinalysis Manual Subsection [address] [place] [address] WBC (Bld) [#/Vol] 7.2 E3/mcL Normal 3.6-11.0 [facility] Comment on above: Performed By: #### 2 [id number] #### TIFFANIE Urinalysis Manual Subsection [address] [place] [address] Ferritinon 09-17-2018 Ferritin [Mass/Vol] 9.0 ng/mL Normal 8.0-150.0 [facility] Comment on above: Performed By: #### 3 [id number] #### TIFFANIE RemHemo [address] [place] [address] Free T4on 09-17-2018 Free T4 [Mass/Vol] 0.96 ng/dL Normal 0.58-1.64 [facility] Comment on above: Performed By: #### 3 [id number] #### TIFFANIE RemHemo [address] [place] [address] Ironon 09-17-2018 Iron [Mass/Vol] 23 microgram/dL Low 35-150 [facility] Comment on above: Performed By: #### 2 [id number] #### TIFFANIE Urinalysis Manual Subsection [address] [place] [address] Morphon 09-17-2018 Anisocytosis Ql (Bld) 1+ Normal [facility] Comment on above: Order Comment: Order Added by Discern Expert. Performed By: #### 2 [id number] #### TIFFANIE Urinalysis Manual Subsection [address] [place] [address] Hypochromasia 1+ Normal [facility] Comment on above: Order Comment: Order Added by Discern Expert. Performed By: #### 2 [id number] #### TIFFANIE Urinalysis Manual Subsection [address] [place] [address] Microcyte 2+ Normal [facility] Comment on above: Order Comment: Order Added by Discern Expert. Performed By: #### 2 [id number] #### TIFFANIE Urinalysis Manual Subsection [address] [place] [address] RBC morphology finding Nom (Bld) SEE MORPHOLOGY Normal [facility] Comment on above: Order Comment: Order Added by Discern Expert. Performed By: #### 2 [id number] #### TIFFANIE Urinalysis Manual Subsection [facility] [place] [address] TIBC Calculatedon 09-17-2018 TIBC 405 microgram/dL Normal >=250 [facility] Comment on above: Performed By: #### 2 [id number] #### TIFFANIE Urinalysis Manual Subsection [address] [place] [address] Transferrin [Mass/Vol] 289 mg/dL Normal 200-360 [facility] Comment on above: Performed By: #### 2 [id number] #### TIFFANIE Urinalysis Manual Subsection [address] [place] [address] TSHon 09-17-2018 TSH Qn 3.86 mcIU/mL Normal 0.30-5.60 [facility] Comment on above: Performed By: #### 3 [id number] #### TIFFANIE RemHemo [address] [place] [address] zzplt morphon 09-17-2018 Platelets (Bld) [#/Vol] NORMAL Normal [facility] Comment on above: Performed By: #### 2 [id number] #### TIFFANIE Urinalysis Manual Subsection [address] [place] [address] Platelet morphology finding Nom (Bld) NORMAL Normal [facility] Comment on above: Result Comment: SOME PLATELET ENLARGED. Performed By: #### 2 [id number] #### TIFFANIE Urinalysis Manual Subsection [address] [place] [address] iFOB Occult Bloodon 09-05-19 19 Occult Bld iFOB Int Ctl Positive Normal [facility] Comment on above: Performed By: #### 3 [id number] #### TIFFANIE RemHemo [address] [place] [address] Occult Blood iFOB Negative Normal [facility] Comment on above: Performed By: #### 3 [id number] #### TIFFANIE RemHemo [address] [place] [address] Auto Diffon 08-18-2018 Basophils (Bld) [#/Vol] 0.1 E3/mcL Normal 0.0-0.2 [facility] Comment on above: Order Comment: Order Added by Discern Expert. Performed By: #### 3 [id number] #### TIFFANIE JoynerHemo [address] [place] [address] Basophils/100 WBC (Bld) 0.8 % Normal 0.0-2.0 [facility] Comment on above: Order Comment: Order Added by Jimy Expert. Performed By: #### 3 [id number] #### TIFFANIE JoynerHemo [address] [place] [address] 44554 Eos Absolute 0.2 E3/mcL Normal 0.0-0.7 [facility] Comment on above: Order Comment: Order Added by Jimy Expert. Performed By: #### 3 [id number] #### TIFFANIE RemHemo [address] [place] [address] 47787 Eosinophils/100 WBC (Bld) 2.6 % Normal 0.0-11.0 [facility] Comment on above: Order Comment: Order Added by Jimy Expert. Performed By: #### 3 [id number] #### TIFFANIE RemHemo [address] [place] [address] Lymphocytes (Bld) [#/Vol] 2.0 E3/mcL Normal 1.2-3.4 [facility] Comment on above: Order Comment: Order Added by Discern Expert. Performed By: #### 3 [id number] #### TIFFANIE RemHemo [address] [place] [address] Lymphocytes/100 WBC (Bld) 31.7 % Normal 20.0-55.0 [facility] Comment on above: Order Comment: Order Added by Discern Expert. Performed By: #### 3 [id number] #### TIFFANIE RemHemo [address] [place] [address] Freeborn Absolute 0.6 E3/mcL Normal 0.0-0.7 [facility] Comment on above: Order Comment: Order Added by Discern Expert. Performed By: #### 3 [id number] #### TIFFANIE JoynerHemo [address] [place] [address] Monocytes/100 WBC (Bld) 9.7 % Normal 0.0-10.0 [facility] Comment on above: Order Comment: Order Added by Discern Expert. Performed By: #### 3 [id number] #### TIFFANIE JoynerHemo [address] [place] [id number] Neutro Absolute 3.5 E3/mcL Normal 1.4-6.5 [facility] Comment on above: Order Comment: Order Added by Discern Expert. Performed By: #### 3 [id number] #### TIFFANIE JoynerHemo [address] [place] [address] Neutro Auto 55.2 % Normal 37.0-75.0 [facility] Comment on above: Order Comment: Order Added by Discern Expert. Performed By: #### 3 [id number] #### TIFFANIE JoynerHemo [address] [place], [place] [address] CBC w/ Auto Diffon 9 Erythrocyte distribution width (RBC) [Ratio] 17.3 % High 11.5-14.5 [facility] Comment on above: Performed By: #### 9 [id number] #### TIFFANIE Kisero [facility] [place] [id number] Hematocrit (Bld) [Volume fraction] 32.2 % Low 36.0-48.0 [facility] Comment on above: Performed By: #### 9 [id number] #### TIFFANIE JoynerHemo [facility] [place] [address] Hemoglobin (Bld) [Mass/Vol] 10.0 g/dL Low 12.0-16.0 [facility] Comment on above: Performed By: #### 9 [id number] #### TIFFANIE JoynerHemo [facility] [place] [id number] MCH (RBC) [Entitic mass] 22.2 pg Low 27.0-31.0 [facility] Comment on above: Performed By: #### 9 [id number] #### TIFFANIE JoynerHemo [facility] [place] [id number] MCHC (RBC) [Mass/Vol] 31.1 g/dL Low 33.0-37.0 [facility] Comment on above: Performed By: #### 9 [id number] #### TIFFANIE JoynerHemo [facility] [facility] [place] [address] MCV (RBC) [Entitic vol] 71.2 fL Low 78.0-100.0 [facility] Comment on above: Performed By: #### 9 [id number] #### TIFFANIE JoynerHemo [address] [place] [address] Platelet mean volume (Bld) [Entitic vol] 8.1 fL Normal 7.4-11.0 [facility] Comment on above: Performed By: #### 9 [id number] #### TIFFANIE JoynerHemo [address] [place] [address] Platelets (Bld) [#/Vol] 367 E3/mcL Normal 130-400 [facility] Comment on above: Performed By: #### 9 [id number] #### TIFFANIE JoynerHemo [address] [place] [address] RBC (Bld) [#/Vol] 4.52 E6/mcL Normal 3.90-5.40 [facility] Comment on above: Performed By: #### 9 [id number] #### TIFFANIE JoynerHemo [address] [place] [address] WBC (Bld) [#/Vol] 6.3 E3/mcL Normal 3.6-11.0 [facility] Comment on above: Performed By: #### 9 [id number] #### TIFFANIE JoynerHemo [facility] [place] [address] Ferritinon 08-18-2018 Ferritin [Mass/Vol] 7.0 ng/mL Low 8.0-150.0 [facility] Comment on above: Performed By: #### 3 [id number] #### TIFFANIE JoynerHemo [facility] [place] [address] Free T4on 08-18-2018 Free T4 [Mass/Vol] 0.91 ng/dL Normal 0.58-1.64 [facility] Comment on above: Result Comment: Mackenzie ents receiving more than 5mg/day of biotin may have interference in test results. A sample should be taken no sooner than eight hours after previous dose. Performed By: #### 3 [id number] #### TIFFANIE JoynerHemo [address] [id number] Ironon 08-18-2018 Iron [Mass/Vol] 11 microgram/dL Low 35-150 [facility] Comment on above: Performed By: #### 3 [id number] #### TIFFANIE JoynerHemo [address] [place] [address] Morphon 08-18-2018 Hypochromasia 1+ Normal [facility] Comment on above: Order Comment: Order Added by Discern Expert. Performed By: #### 9 [id number] #### TIFFANIE Kisero [facility] [place] [address] Microcyte 1+ Normal [facility] Comment on above: Order Comment: Order Added by Discern Expert. Performed By: #### 9 [id number] #### TIFFANIE Kisero [facility] [place] [address] RBC morphology finding Nom (Bld) SEE MORPHOLOGY Normal [facility] Comment on above: Order Comment: Order Added by Discern Expert. Performed By: #### 9 [id number] #### TIFFANIE JoynerHemo [address] [id number] TIBC Calculatedon 08-18-2018 TIBC 462 microgram/dL Normal >=250 [facility] Comment on above: Performed By: #### 3 [id number] #### TIFFANIE JoynerHemo [facility] [place] [address] Transferrin [Mass/Vol] 330 mg/dL Normal 200-360 [facility] Comment on above: Performed By: #### 3 [id number] #### TIFFANIE JoynerHemo [address] [id number] TSHon 08-18-2018 TSH Qn 6.13 mcIU/mL High 0.30-5.60 [facility] Comment on above: Performed By: #### 3 [id number] #### TIFFANIE JoynerHemo [address] [id number] UA Completeon 08-18-2018 Color (U) Yellow Normal Yellow [facility] Comment on above: Performed By: #### 9 [id number] #### TIFFANIE RemHemo [address] [place] [address] Glucose (U) [Mass/Vol] Negative Normal Negative [facility] Comment on above: Performed By: #### 9 [id number] #### TIFFANIE RemHemo [address] [place] [address] Ketones Ql (U) Negative Normal Negative [facility] Comment on above: Performed By: #### 9 [id number] #### TIFFANIE RemHemo [address] [place] [address] RBC (U) [#/Vol] 3-5 Abnormal 0-3 [facility] Comment on above: Performed By: #### 9 [id number] #### TIFFANIE RemHemo [address] [place] [address] UA Blood 1+ Abnormal Negative [facility] Comment on above: Performed By: #### 9 [id number] #### TIFFANIE RemHemo [address] [place] [address] UA Amorph Iona 3+ /HPF Abnormal None [facility] Comment on above: Performed By: #### 9 [id number] #### TIFFANIE RemHemo [address] [place] [address] UA Bacteria 1+ /HPF Abnormal None [facility] Comment on above: Performed By: #### 9 [id number] #### TIFFANIE RemHemo [address] [place] [address] UA Clarity Turbid Abnormal Clear [facility] Comment on above: Performed By: #### 9 [id number] #### TIFFANIE RemHemo [address] [place] [address] UA Leuk Est Negative Normal Negative [facility] Comment on above: Performed By: #### 9 [id number] #### TIFFANIE RemHemo [address] [place] [address] UA Mucous Few Abnormal Trace [facility] Comment on above: Performed By: #### 9 [id number] #### TIFFANIE RemHemo [address] [place] [address] UA Nitrite Negative Normal Negative [facility] Comment on above: Performed By: #### 9 [id number] #### TIFFANIE JoynerHemo [address] [place] [address] UA pH 5.0 Normal 4.6-8.0 [facility] Comment on above: Performed By: #### 9 [id number] #### TIFFANIE JoynerHemo [address] [place] [address] UA Protein Negative Normal Negative [facility] Comment on above: Performed By: #### 9 [id number] #### TIFFANIE JoynerHemo [facility] [place] [address] UA Spec Grav 1.028 Normal 1.003-1.030 [facility] Comment on above: Performed By: #### 9 [id number] #### TIFFANIE JoynerHemo [facility] [place] [address] UA Urobilinogen Negative Normal [facility] Comment on above: Result Comment: Due to a manufacturing issue, low positive urobilinogen results may be fasely positive. Correlate with urine bilirubin and additional clinical/laboratory findings to assess the risk of hemolytic anemia or liver disease. If clinically indicated, repeat testing with an alternate method is available by contacting the laboratory within 24 hours. Performed By: #### 9 [id number] #### TIFFANIE JoynerHemo [address] [place] [address] Urobilinogen Qn (U) Negative Normal Negative [facility] Comment on above: Performed By: #### 9 [id number] #### TIFFANIE JoynerHemo [address] [place] [address] zzplt morphon 08-18-2018 Platelet morphology finding Nom (Bld) NORMAL Normal [facility] Comment on above: Performed By: #### 9 [id number] #### TIFFANIE JoynerHemo [facility] [place] [address] Platelets (Bld) [#/Vol] NORMAL Normal [facility] Comment on above: Performed By: #### 9 [id number] #### TIFFANIE JoynerHemo [facility] [place] [address] Rapid Strep A Screenon 08-12 S. pyogenes Ag IA Ql (Unsp spec) Negative Normal [facility] Comment on above: Performed By: #### 9 [id number] #### TIFFANIE RemHemo [address] [place] [address] Flu A/B by PCRon 08-10-2018 Flu A Negative Normal Negative [facility] Comment on above: Performed By: #### 9 [id number] #### TIFFANIE RemHemo [address] [place] [address] Flu B Negative Normal Negative [facility] Comment on above: Performed By: #### 9 [id number] #### TIFFANIE RemHemo [address] [place] [address] XR Chest 2 Viewson 9 XR Chest 2 Views Exam Date/Time: 08/10/2018 20:39 EDT Reason for Exam: Cough Report STUDY: XR Chest 2 Views; 08/10/2018 8:39 pm INDICATION: Cough. COMPARISON: None. ACCESSION NUMBER(S): [id number] ORDERING CLINICIAN: Patrick Steele FINDINGS: The cardiac silhouette is normal in size. No focal airspace consolidation or pleural effusion. No pneumothorax. The skeletal structures are intact. IMPRESSION: No airspace consolidation or pleural effusion. FINAL REPORT Dictated: 08/10/2018 8:40 pm April Castañeda MD Signed (Electronic Signature): 08/10/2018 8:40 pm Signed by: April Castañeda MD Technologist: YASEMIN Normal [facility] Auto Diffon 07-17-2018 Basophils (Bld) [#/Vol] 0.1 E3/mcL Normal 0.0-0.2 [facility] Comment on above: Order Comment: Order Added by Discern Expert. Performed By: #### 9 [id number] #### TIFFANIE RemHemo [address] [place] [address] Basophils/100 WBC (Bld) 1.2 % Normal 0.0-2.0 [facility] Comment on above: Order Comment: Order Added by Discern Expert. Performed By: #### 9 [id number] #### TIFFANIE RemHemo [address] [place] [address] Eos Absolute 0.2 E3/mcL Normal 0.0-0.7 [facility] Comment on above: Order Comment: Order Added by Discern Expert. Performed By: #### 9 [id number] #### TIFFANIE RemHemo [address] [place] [address] Eosinophils/100 WBC (Bld) 1.9 % Normal 0.0-11.0 [facility] Comment on above: Order Comment: Order Added by Discern Expert. Performed By: #### 9 [id number] #### TIFFANIE RemHemo [address] [place] [address] Lymphocytes (Bld) [#/Vol] 2.9 E3/mcL Normal 1.2-3.4 [facility] Comment on above: Order Comment: Order Added by Discern Expert. Performed By: #### 9 [id number] #### TIFFANIE RemHemo [address] [place] [address] Lymphocytes/100 WBC (Bld) 28.9 % Normal 20.0-55.0 [facility] Comment on above: Order Comment: Order Added by Discern Expert. Performed By: #### 9 [id number] #### TIFFANIE RemHemo [address] [place] [address] Freeborn Absolute 0.7 E3/mcL Normal 0.0-0.7 [facility] Comment on above: Order Comment: Order Added by Discern Expert. Performed By: #### 9 [id number] #### TIFFANIE RemHemo [address] [place] [address] Monocytes/100 WBC (Bld) 7.1 % Normal 0.0-10.0 [facility] Comment on above: Order Comment: Order Added by Discern Expert. Performed By: #### 9 [id number] #### TIFFANIE RemHemo [address] [place] [address] Neutro Absolute 6.1 E3/mcL Normal 1.4-6.5 [facility] Comment on above: Order Comment: Order Added by Discern Expert. Performed By: #### 9 [id number] #### TIFFANIE RemHemo [address] [place] [address] Neutro Auto 60.9 % Normal 37.0-75.0 [facility] Comment on above: Order Comment: Order Added by Discern Expert. Performed By: #### 9 [id number] #### TIFFANIE JoynerHemo [address] [place] [address] BMPon 07-17-2018 Anion gap [Moles/Vol] 12 mmol/L Normal 10-20 [facility] Comment on above: Performed By: #### 2 [id number] #### TIFFANIE JoynerHemo [address] [place] [address] Calcium [Mass/Vol] 9.0 mg/dL Normal 8.6-10.3 [facility] Comment on above: Performed By: #### 2 [id number] #### TIFFANIE JoynerHemo [address] [place] [address] Chloride [Moles/Vol] 107 mmol/L Normal 98-107 [facility] Comment on above: Performed By: #### 2 [id number] #### TIFFANIE JoynerHemo [address] [place] [address] CO2 [Moles/Vol] 22.0 mmol/L Normal 21.0-32.0 [facility] Comment on above: Performed By: #### 2 [id number] #### TIFFANIE JoynerHemo [address] [place] [address] Creatinine [Mass/Vol] 0.6 mg/dL Normal 0.5-1.1 [facility] Comment on above: Performed By: #### 2 [id number] #### TIFFANIE JoynerHemo [address] [place] [address] Glucose [Mass/Vol] 127 mg/dL High 70-99 [facility] Comment on above: Performed By: #### 2 [id number] #### TIFFANIE RemHemo [address] [place] [address] Potassium [Moles/Vol] 3.9 mmol/L Normal 3.5-5.3 [facility] Comment on above: Performed By: #### 2 [id number] #### TIFFANIE RemHemo [address] [place] [address] Sodium [Moles/Vol] 137 mmol/L Normal 136-145 [facility] Comment on above: Performed By: #### 2 [id number] #### TIFFANIE RemHemo [address] [place] [address] Urea nitrogen [Mass/Vol] 11 mg/dL Normal 6-23 [facility] Comment on above: Performed By: #### 2 [id number] #### TIFFANIE JoynerHemo [facility] [place] [address] Urea nitrogen/Creatinine [Mass ratio] 18.3 ratio Normal 5.4-30.0 [facility] Comment on above: Performed By: #### 2 [id number] #### TIFFANIE Kiser[address] [address] CBC w/ Auto Diffon 9 Erythrocyte distribution width (RBC) [Ratio] 16.9 % High 11.5-14.5 [facility] Comment on above: Performed By: #### 2 [id number] #### TIFFANEI Kiser[address] [address] Hematocrit (Bld) [Volume fraction] 31.6 % Low 36.0-48.0 [facility] Comment on above: Performed By: #### 2 [id number] #### TIFFANIE JoynerHemo [address] [place] [address] Hemoglobin (Bld) [Mass/Vol] 10.0 g/dL Low 12.0-16.0 [facility] Comment on above: Performed By: #### 2 [id number] #### TIFFANIE Kiser[address] [address] MCH (RBC) [Entitic mass] 22.2 pg Low 27.0-31.0 [facility] Comment on above: Performed By: #### 2 [id number] #### TIFFANIE JoynerHemo [address] [place] [address] MCHC (RBC) [Mass/Vol] 31.7 g/dL Low 33.0-37.0 [facility] Comment on above: Performed By: #### 2 [id number] #### TIFFANIE JoynerHemo [address] [place] [address] MCV (RBC) [Entitic vol] 70.0 fL Low 78.0-100.0 [facility] Comment on above: Performed By: #### 2 [id number] #### TIFFANIE JoynerHemo [address] [place] [address] Platelet mean volume (Bld) [Entitic vol] 8.6 fL Normal 7.4-11.0 [facility] Comment on above: Performed By: #### 2 [id number] #### TIFFANIE JoynerHemo [facility] [place] [address] Platelets (Bld) [#/Vol] 381 E3/mcL Normal 130-400 [facility] Comment on above: Performed By: #### 2 [id number] #### TIFFANIE JoynerHemo [facility] [place] [address] RBC (Bld) [#/Vol] 4.52 E6/mcL Normal 3.90-5.40 [facility] Comment on above: Performed By: #### 2 [id number] #### TIFFANIE JoynerHemo [facility] [place] [address] WBC (Bld) [#/Vol] 10.1 E3/mcL Normal 3.6-11.0 [facility] Comment on above: Performed By: #### 2 [id number] #### TIFFANIE JoynerHemo [address] [place] [address] Abdomen/Pelvis w/o Contra ston 07-17-2018 CT Abdomen/Pelvis w/o Contrast Exam Date/Time: 07/16/2018 23:51 EST Reason for Exam: Abdominal Pain;Other (please specify) Report STUDY: CT Abdomen/Pelvis w/o Contrast; 07/16/2018 11:51 pm INDICATION: Abdominal pain, left flank pain COMPARISON: None. ACCESSION NUMBER(S): [id number] ORDERING CLINICIAN: Elvie Stiles TECHNIQUE: Contiguous axial images of the abdomen and pelvis were obtained without intravenous contrast. Coronal and sagittal reformatted images were obtained from the axial images. FINDINGS: Mild basilar subsegmental atelectasis. No pleural effusion. Evaluation of the abdominal viscera is limited secondary to lack of intravenous contrast. Limited evaluation for liver mass on noncontrast examination. The gallbladder is contracted and not well evaluated. No dilatation of the common bile duct. The pancreas, spleen, and adrenal glands appear unremarkable. 4 mm and 3 mm calculi in the lower pole of the left kidney. No hydronephrosis. Evaluation of the kidneys is otherwise limited secondary to lack of intravenous contrast. No evidence of bowel obstruction or acute appendicitis. Urinary bladder is underdistended and not well evaluated. Limited evaluation of the uterus and adnexa. No evidence of significant free abdominal or pelvic fluid. No evidence of acute fracture of the lumbar spine. IMPRESSION: 4 mm and 3 mm nonobstructive left renal calculi. No hydronephrosis. Exam Date/Time: 07/16/2018 23:51 EST Report Limited evaluation of the uterus and adnexa. There is superior lateral position of the left ovary. There is however no evidence of surrounding edema or ovarian cyst.. If there is concern for ovarian pathology, pelvic ultrasound is recommended for further evaluation. FINAL REPORT Dictated: 07/17/2018 1:00 am Angela Miller MD Signed (Electronic Signature): 07/17/2018 1:00 am Signed by: Angela Miller MD Technologist: GA Normal [facility] Hep Func Panelon 07-17-2018 Albumin [Mass/Vol] 4.0 g/dL Normal 3.4-5.0 [facility] Comment on above: Performed By: #### 2 [id number] #### TIFFANIE AnyaHemo [address] [place], [place] [id number] Albumin/Globulin [Mass ratio] 1.5 {ratio} Normal 1.1-1.9 [facility] Comment on above: Performed By: #### 2 [id number] #### TIFFANIECaitie JoynerHemo [address] [place] [address] Alk Phos 67 Int._Unit/L Normal 33-110 [facility] Comment on above: Performed By: #### 2 [id number] #### TIFFANIE AnyaHemo [facility] [place] [address] ALT [Catalytic activity/Vol] 9 Int._Unit/L Normal 7-45 [facility] Comment on above: Performed By: #### 2 [id number] #### [facility] [place] [address] AST [Catalytic activity/Vol] 11 Int._Unit/L Normal 9-39 [facility] Comment on above: Performed By: #### 2 [id number] #### [facility] [address] [place] [address] Bili Direct 0.04 mg/dL Normal 0.00-0.30 [facility] Comment on above: Performed By: #### 2 [id number] #### TIFFANIE JoynerHemo [address] [id number] Bili Indirect 0.17 mg/dL Normal [facility] Comment on above: Result Comment: No e stablished ranges available for the indirect bilirubin Performed By: #### 2 [id number] #### TIFFANIE JoynerHemo [address] [place] [id number] Bili Total 0.21 mg/dL Normal 0.00-1.20 [facility] Comment on above: Performed By: #### 2 156127 #### TIFFANIE JoynerHemo [address] [place] [address] Globulin (S) [Mass/Vol] 3.0 g/dL Normal 2.0-4.0 [facility] Comment on above: Performed By: #### 2 [id number] #### TIFFANIE JoynerHemo [address] [place], [place] [address] Protein [Mass/Vol] 6.7 g/dL Normal 6.4-8.2 [facility] Comment on above: Performed By: #### 2 097527 #### TIFFANIE JoynerHemo [address] [place] [address] Lipase Levelon 07-17-2018 Lipase Lvl 20 Int._Unit/L Normal 9-82 [facility] Comment on above: Performed By: #### 2 [id number] #### TIFFANIE JoynerHemo [address] [place] [id number] Morphon 07-17-2018 Anisocytosis Ql (Bld) 1+ Normal [facility] Comment on above: Order Comment: Order Added by Discern Expert. Performed By: #### 2 [id number] #### TIFFANIE JoynerHemo [address] [id number] Hypochromasia 1+ Normal [facility] Comment on above: Order Comment: Order Added by Discern Expert. Performed By: #### 2 [id number] #### TIFFANIE JoynerHemo [address] [place] [address] RBC morphology finding Nom (Bld) SEE MORPHOLOGY Normal [facility] Comment on above: Order Comment: Order Added by Discern Expert. Performed By: #### 2 [id number] #### TIFFANIE RemHemo [address] [id number] U BhCG Qlton 07-17-2018 HCG.beta subunit Qn Negative Normal Neg [facility] Comment on above: Performed By: #### 2 [id number] #### TIFFANIE JoynerHemo [address] [place] [address] UA Completeon 07-17-2018 Color (U) Hortencia Abnormal Yellow [facility] Comment on above: Performed By: #### 2 [id number] #### TIFFANIE RemHemo [address] [place] [address] Glucose (U) [Mass/Vol] Negative Normal Negative [facility] Comment on above: Performed By: #### 2 [id number] #### TIFFANIE JoynerHemo [address] [place] [address] Ketones Ql (U) Trace Normal [facility] Comment on above: Performed By: #### 2 [id number] #### TIFFANIE RemHemo [address] [place] [address] RBC (U) [#/Vol] 3-5 Abnormal 0-3 [facility] Comment on above: Performed By: #### 2 [id number] #### TIFFANIE JoynerHemo [address] [place] [address] UA Blood 1+ Abnormal Negative [facility] Comment on above: Performed By: #### 2 [id number] #### TIFFANIE RemHemo [address] [place] [address] UA Bacteria 1+ /HPF Abnormal None [facility] Comment on above: Performed By: #### 2 051906 #### TIFFANIE RemHemo [address] [place] [address] UA Clarity Cloudy Abnormal Clear [facility] Comment on above: Performed By: #### 2 684230 #### TIFFANIE RemHemo [address] [place] [id number] UA Leuk Est 2+ Abnormal Negative [facility] Comment on above: Performed By: #### 2 837442 #### TIFFANIE RemHemo [address] [place] [id number] UA Mucous Many Abnormal Trace [facility] Comment on above: Performed By: #### 2 517443 #### TIFFANIE RemHemo [address] [place] [address] UA Nitrite Negative Normal Negative [facility] Comment on above: Performed By: #### 2 438245 #### TIFFANIE JoynerHemo [address] [place] [address] UA pH 5.0 Normal 4.6-8.0 [facility] Comment on above: Performed By: #### 2 111117 #### TIFFANIE JoynerHemo [address] [place] [address] UA Protein 2+ Abnormal Negative [facility] Comment on above: Performed By: #### 2 [id number] #### TIFFANIE JoynerHemo [facility] [place] [address] UA Spec Grav 1.034 High 1.003-1.030 [facility] Comment on above: Performed By: #### 2 [id number] #### TIFFANIE JoynerHemo [address] [place], [place] [address] UA Squam Epithelial >30 Abnormal 0-5 [facility] Comment on above: Performed By: #### 2 275855 #### TIFFANIE JoynerHemo [facility] [place] [address] UA Urobilinogen 2.0 mg/dL Abnormal [facility] Comment on above: Result Comment: Due to a manufacturing issue, low positive urobilinogen results may be fasely positive. Correlate with urine bilirubin and additional clinical/laboratory findings to assess the risk of hemolytic anemia or liver disease. If clinically indicated, repeat testing with an alternate method is available by contacting the laboratory within 24 hours. Performed By: #### 2 [id number] #### TIFFANIE JoynerHemo [address] [place] [address] UA WBC 20-50 Abnormal 0-5 [facility] Comment on above: Performed By: #### 2 167972 #### TIFFANIE JoynerHemo [facility] [place] [id number] Urobilinogen Qn (U) Negative Normal Negative [facility] Comment on above: Performed By: #### 2 [id number] #### TIFFANIE RemHemo [address] [place] [address] eGFRon 07-17-2018 GFR/1.73 sq M predicted among non-blacks MDRD (S/P/Bld) [Vol rate/Area] mL/min/{1.73_m2} Normal [facility] Comment on above: Order Comment: Order Added by Discern Expert. Performed By: #### 2 [id number] #### TIFFANIE JoynerHemo [facility] [place] [address] zzplt morphon 07-17-2018 Platelet morphology finding Nom (Bld) ENLARGED Normal [facility] Comment on above: Performed By: #### 9 [id number] #### TIFFANIE JoynerHemo [facility] [place] [address] Platelets (Bld) [#/Vol] NORMAL Normal [facility] Comment on above: Performed By: #### 9 [id number] #### TIFFANIE JoynerHemo [address] [place] [address] .Manual Abson 04-22-2018 Basophil Abs Man 0.0 10x3/ Normal 0.0-0.2 [facility] Comment on above: Order Comment: Order Added by Jimy Expert. Performed By: #### 3 [id number] #### TIFFANIE AnyaHemo [facility] [place] [address] Eos Abs Man 0.1 10x3/ Normal 0.0-0.5 [facility] Comment on above: Order Comment: Order Added by Discern Expert. Performed By: #### 3 [id number] #### TIFFANIE RemHemo [facility] [place] [address] Lymph Abs Man 0.8 10x3/ Low 1.2-3.4 [facility] Comment on above: Order Comment: Order Added by Discern Expert. Performed By: #### 3 [id number] #### TIFFANIE RemHemo [address] [place] [address] Freeborn Abs Man 0.7 10x3/ Normal 0.0-0.7 [facility] Comment on above: Order Comment: Order Added by Discern Expert. Performed By: #### 3 [id number] #### TIFFANIECaitie JoynreHemo [facility] [place] [address] Segs Abs Man 11.5 10x3/ High 1.4-6.5 [facility] Comment on above: Order Comment: Order Added by Discern Expert. Performed By: #### 3 [id number] #### TIFFANIE JoynerHemo [address] [place] [address] BMPon 04-22-2018 Anion gap [Moles/Vol] 13 mmol/L Normal 10-20 [facility] Comment on above: Performed By: #### 2 [id number] #### TIFFANIE RemChem [address] [place] [address] Calcium [Mass/Vol] 9.2 mg/dL Normal 8.6-10.3 [facility] Comment on above: Performed By: #### 2 [id number] #### TIFFANIE [employer] [address] [place] [address] Chloride [Moles/Vol] 109 mmol/L High 98-107 [facility] Comment on above: Performed By: #### 2 [id number] #### TIFFANIE [employer] [address] [place] [address] CO2 [Moles/Vol] 19.0 mmol/L Low 21.0-32.0 [facility] Comment on above: Performed By: #### 2 [id number] #### TIFFANIE [employer] [address] [place] [address] Creatinine [Mass/Vol] 0.6 mg/dL Normal 0.5-1.1 [facility] Comment on above: Performed By: #### 2 [id number] #### TIFFANIE [employer] [address] [place] [address] Glucose [Mass/Vol] 105 mg/dL High 70-99 [facility] Comment on above: Performed By: #### 2 [id number] #### TIFFANIE [employer] [address] [place] [address] Potassium [Moles/Vol] 3.7 mmol/L Normal 3.5-5.3 [facility] Comment on above: Performed By: #### 2 [id number] #### TIFFANIE [employer] [address] [place] [address] Sodium [Moles/Vol] 138 mmol/L Normal 136-145 [facility] Comment on above: Performed By: #### 2 [id number] #### TIFFANIE [employer] [address] [place] [address] Urea nitrogen [Mass/Vol] 15 mg/dL Normal 6-23 [facility] Comment on above: Performed By: #### 2 [id number] #### TIFFANIE [employer] [address] [place] [address] Urea nitrogen/Creatinine [Mass ratio] 25.0 ratio Normal 5.4-30.0 [facility] Comment on above: Performed By: #### 2 [id number] #### TIFFANIE [employer] [address] [place] [address] CBC w/ Auto Diffon 8 Erythrocyte distribution width (RBC) [Ratio] 16.1 % High 11.5-14.5 [facility] Comment on above: Performed By: #### 2 [id number] #### TIFFANIE RemHemo [address] [place] [address] Hematocrit (Bld) [Volume fraction] 33.1 % Low 36.0-48.0 [facility] Comment on above: Performed By: #### 2 [id number] #### TIFFANIE RemHemo [address] [place] [address] Hemoglobin (Bld) [Mass/Vol] 10.5 g/dL Low 12.0-16.0 [facility] Comment on above: Performed By: #### 2 [id number] #### TIFFANIE RemHemo [address] [place] [address] MCH (RBC) [Entitic mass] 22.3 pg Low 27.0-31.0 [facility] Comment on above: Performed By: #### 2 [id number] #### TIFFANIE RemHemo [address] [place] [address] MCHC (RBC) [Mass/Vol] 31.7 g/dL Low 33.0-37.0 [facility] Comment on above: Performed By: #### 2 [id number] #### TIFFANIE RemHemo [address] [place] [address] MCV (RBC) [Entitic vol] 70.3 fL Low 78.0-100.0 [facility] Comment on above: Performed By: #### 2 [id number] #### TIFFANIE RemHemo [address] [place] [address] Platelet mean volume (Bld) [Entitic vol] 9.0 fL Normal 7.4-11.0 [facility] Comment on above: Performed By: #### 2 [id number] #### TIFFANIE RemHemo [address] [place] [address] Platelets (Bld) [#/Vol] 358 E3/mcL Normal 130-400 [facility] Comment on above: Performed By: #### 2 [id number] #### TIFFANIE RemHemo [address] [place] [address] RBC (Bld) [#/Vol] 4.71 E6/mcL Normal 3.90-5.40 [facility] Comment on above: Performed By: #### 2 [id number] #### TIFFANIE RemHemo [address] [place] [address] WBC (Bld) [#/Vol] 13.5 E3/mcL High 3.6-11.0 [facility] Comment on above: Performed By: #### 2 [id number] #### TIFFANIE RemHemo [address] [place] [address] Hep Func Panelon 04-22-2018 Albumin [Mass/Vol] 4.1 g/dL Normal 3.4-5.0 [facility] Comment on above: Performed By: #### 2 [id number] #### TIFFAINE RemChem [address] [place] [address] Albumin/Globulin [Mass ratio] 1.2 {ratio} Normal 1.1-1.9 [facility] Comment on above: Performed By: #### 2 844350 #### TIFFANIE [employer] [address] [place] [address] Alk Phos 70 Int._Unit/L Normal 33-110 [facility] Comment on above: Performed By: #### 2 758231 #### TIFFANIE [employer] [address] [place] [address] ALT [Catalytic activity/Vol] 12 Int._Unit/L Normal 7-45 [facility] Comment on above: Performed By: #### 2 [id number] #### TIFFANIE [employer] [address] [place] [address] AST [Catalytic activity/Vol] 12 Int._Unit/L Normal 9-39 [facility] Comment on above: Performed By: #### 2 [id number] #### [place] [address] [place] [address] Bili Direct 0.10 mg/dL Normal 0.00-0.30 [facility] Comment on above: Performed By: #### 2 [id number] #### TIFFANIE [address]ner[address] [address] Bili Indirect 0.45 mg/dL Normal [facility] Comment on above: Result Comment: No e stablished ranges available for the indirect bilirubin Performed By: #### 2 198551 #### TIFFANIE Joyner[address] [address] Bili Total 0.55 mg/dL Normal 0.00-1.20 [facility] Comment on above: Performed By: #### 2 [id number] #### TIFFANIE [address]ner[address] [address] Globulin (S) [Mass/Vol] 3.0 g/dL Normal 2.0-4.0 [facility] Comment on above: Performed By: #### 2 398811 #### TIFFANIE Joyner[address] [address] Protein [Mass/Vol] 7.5 g/dL Normal 6.4-8.2 [facility] Comment on above: Performed By: #### 2 143386 #### TIFFANIE Joyner[address] [address] Lipase Levelon 04-22-2018 Lipase Lvl 8 Int._Unit/L Low 9-82 [facility] Comment on above: Performed By: #### 2 [id number] #### TIFFANIE [facility] [place] [address] Manual Diffon 04-22-2018 Anisocytosis Ql (Bld) 1+ Normal [facility] Comment on above: Order Comment: Order Added by Discern Expert. Performed By: #### 2 [id number] #### TIFFANIE [facility] [place] [address] Band form neutrophils/100 WBC (Bld) 3 High 0-1 [facility] Comment on above: Order Comment: Order Added by Discern Expert. Performed By: #### 2 [id number] #### TIFFANIE RemHemo [address] [place] [address] Basophil Man 0 % Normal 0-1 [facility] Comment on above: Order Comment: Order Added by Discern Expert. Performed By: #### 2 557593 #### TIFFANIE RemHemo [address] [place] [address] Eosinophils/100 WBC (Bld) 1 % Normal 0-5 [facility] Comment on above: Order Comment: Order Added by Discern Expert. Performed By: #### 2 [id number] #### TIFFANIE RemHemo [address] [place] [address] Hypochromasia 2+ Normal [facility] Comment on above: Order Comment: Order Added by Discern Expert. Performed By: #### 2 [id number] #### TIFFANIE RemHemo [address] [place] [address] Lymphocytes/100 WBC (Bld) 6 % Low 14-48 [facility] Comment on above: Order Comment: Order Added by Discern Expert. Performed By: #### 2 [id number] #### TIFFANIE RemHemo [address] [place] [address] Microcyte 1+ Normal [facility] Comment on above: Order Comment: Order Added by Discern Expert. Performed By: #### 2 [id number] #### TIFFANIE RemHemo [address] [place] [address] Monocyte Man 5 % Normal 1-11 [facility] Comment on above: Order Comment: Order Added by Discern Expert. Performed By: #### 2 [id number] #### TIFFANIE RemHemo [address] [place] [address] RBC morphology finding Nom (Bld) SEE MORPHOLOGY Normal [facility] Comment on above: Order Comment: Order Added by Discern Expert. Performed By: #### 2 [id number] #### TIFFANIE RemHemo [address] [place] [address] Segs Man 85 % High 37-75 [facility] Comment on above: Order Comment: Order Added by Discern Expert. Performed By: #### 2 [id number] #### TIFFANIE RemHemo [address] [place] [address] Troponin-Ion 04-22-2018 Troponin I.cardiac [Mass/Vol] 0.01 ng/mL Normal .00-.03 [facility] Comment on above: Performed By: #### 2 [id number] #### TIFFANIE [employer]ink [address] [place] [address] U BhCG Qlton 04-22-2018 HCG.beta subunit Qn Negative Normal Neg [facility] Comment on above: Performed By: #### 2 [id number] #### TIFFANIE Urinalysis Manual Subsection [facility] [place] [address] UA Completeon 04-22-2018 Color (U) Yellow Normal Yellow [facility] Comment on above: Performed By: #### 8 [id number] #### TIFFANIE Urinalysis Automated Subsection [facility] [place] [address] Glucose (U) [Mass/Vol] Negative Normal Negative [facility] Comment on above: Performed By: #### 8 [id number] #### TIFFANIE Urinalysis Automated Subsection [facility] [place] [address] Ketones Ql (U) 1+ Abnormal Negative [facility] Comment on above: Performed By: #### 8 [id number] #### TIFFANIE Urinalysis Automated Subsection [facility] [place] [address] RBC (U) [#/Vol] 3-5 Abnormal 0-3 [facility] Comment on above: Performed By: #### 8 [id number] #### TIFFANIE Urinalysis Automated Subsection [facility] [place] [address] UA Blood Negative Normal Negative [facility] Comment on above: Performed By: #### 8 [id number] #### TIFFANIE Urinalysis Automated Subsection [facility] [place] [address] UA Bacteria Trace Abnormal None [facility] Comment on above: Performed By: #### 8 [id number] #### TIFFANIE Urinalysis Automated Subsection [facility] [place] [address] UA Clarity Clear Normal Clear [facility] Comment on above: Performed By: #### 8 [id number] #### TIFFANIE Urinalysis Automated Subsection [address] [place] [address] UA Leuk Est Negative Normal Negative [facility] Comment on above: Performed By: #### 8 [id number] #### TIFFANIE Urinalysis Automated Subsection [address] [place] [address] UA Mucous Occasional Abnormal Trace [facility] Comment on above: Performed By: #### 8 [id number] #### TIFFANIE Urinalysis Automated Subsection [address] [place] [address] UA Nitrite Negative Normal Negative [facility] Comment on above: Performed By: #### 8 [id number] #### TIFFANIE Urinalysis Automated Subsection [address] [place] [address] UA pH 8.0 Normal 4.6-8.0 [facility] Comment on above: Performed By: #### 8 [id number] #### TIFFANIE Urinalysis Automated Subsection [address] [place] [address] UA Protein 1+ Abnormal Negative [facility] Comment on above: Performed By: #### 8 [id number] #### TIFFANIE Urinalysis Automated Subsection [address] [place] [address] UA Spec Grav 1.020 Normal 1.003-1.030 [facility] Comment on above: Performed By: #### 8 [id number] #### TIFFANIE Urinalysis Automated Subsection [address] [place] [address] UA Squam Epithelial 0-5 Normal 0-5 [facility] Comment on above: Performed By: #### 8 [id number] #### TIFFANIE Urinalysis Automated Subsection [address] [place] [address] UA Urobilinogen Negative Normal [facility] Comment on above: Result Comment: Due to a manufacturing issue, low positive urobilinogen results may be fasely positive. Correlate with urine bilirubin and additional clinical/laboratory findings to assess the risk of hemolytic anemia or liver disease. If clinically indicated, repeat testing with an alternate method is available by contacting the laboratory within 24 hours. Performed By: #### 8 [id number] #### TIFFANIE Urinalysis Automated Subsection [address] [place], [place] [id number] UA WBC 0-5 Normal 0-5 [facility] Comment on above: Performed By: #### 8 [id number] #### TIFFANIE Urinalysis Automated Subsection [address] [place] [address] Urobilinogen Qn (U) Negative Normal Negative [facility] Comment on above: Performed By: #### 8 [id number] #### TIFFANIE Urinalysis Automated Subsection [address] [place] [address] XR Abdomen Acute (PA Chest)o n 04-22-2018 XR Abdomen Acute (PA Chest) Exam Date/Time: 04/22/2018 18:55 EST Reason for Exam: Abdominal pain Report STUDY: XR Abdomen Acute (PA Chest); 04/22/2018 6:55 pm INDICATION: Abdominal pain. COMPARISON: None. ACCESSION NUMBER(S): [id number] ORDERING CLINICIAN: Alonso Hall FINDINGS: Nonobstructive bowel gas pattern. Limited evaluation of pneumoperitoneum on supine imaging, however no gross evidence of free air is noted. Visualized lungs are clear. Osseous structures demonstrate no acute bony changes. IMPRESSION: 1. Nonspecific, nonobstructive bowel gas pattern. 2. No acute intrathoracic findings. FINAL REPORT Dictated: 04/22/2018 7:12 pm Chong Forbes MD Signed (Electronic Signature): 04/22/2018 7:12 pm Signed by: Chong Forbes MD Technologist: [facility] Normal [facility] eGFRon 04-22-2018 GFR/1.73 sq M predicted among non-blacks MDRD (S/P/Bld) [Vol rate/Area] mL/min/{1.73_m2} Normal [facility] Comment on above: Order Comment: Order added by Discern Expert. Performed By: #### 1 [id number] #### TIFFANIE [employer] [address] [place] [address] zzplt morphon 04-22-2018 Platelet morphology finding Nom (Bld) NORMAL Normal [facility] Comment on above: Performed By: #### 9 [id number] #### TIFFANIE RemHemo [address] [place] [address] Platelets (Bld) [#/Vol] NORMAL Normal [facility] Comment on above: Performed By: #### 9 [id number] #### TIFFANIE Sun [address] [place] [id number] Vital Signs Date Time Vital Sign Value Performing Clinician Facility 11-11-2024 15:52-0400 Body height 162.6 cm John Avaloskalyn 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 SECURITY Work Phone: [facility] 11-11-2024 15:52-0400 Body mass index (BMI) [Ratio] 50.81 kg/m2 John Haury 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 SECURITY Work Phone: [facility] 11-11-2024 15:52-0400 Body weight 134.26 kg John Haury 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 SECURITY Work Phone: [facility] 11-11-2024 15:52-0400 Diastolic blood pressure 80 mm[Hg] John Haury 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 SECURITY Work Phone: [facility] 11-11-2024 15:52-0400 Systolic blood pressure 128 mm[Hg] John Haury 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 SECURITY Work Phone: [facility] 08-31-2024 14:17-0400 Body mass index (BMI) [Ratio] 49.9 kg/m2 Vikki Sandoval MD Work Phone: [facility] 08-31-2024 14:17-0400 Body weight 132.9 kg Vikki Sandoval MD Work Phone: [facility] 08-31-2024 14:17-0400 Diastolic blood pressure 66 mm[Hg] Vikki Sandoval MD Work Phone: [facility] 08-31-2024 14:17-0400 Heart rate 113 /min Vikki Sandoval MD Work Phone: [facility] 08-31-2024 14:17-0400 SaO2% (BldA) [Mass fraction] 98 % Vikki Sandovla MD Work Phone: [facility] 08-31-2024 14:17-0400 Systolic blood pressure 114 mm[Hg] Vikki Sandoval MD Work Phone: [facility] 07-31-2024 09:39-0400 Body mass index (BMI) [Ratio] 49.73 kg/m2 William Macedo Work Phone: [facility] 07-31-2024 09:39-0400 Body temperature 98.8 [degF] William Macedo Work Phone: [facility] 07-31-2024 09:39-0400 Body weight 132.45 kg William Macedo Work Phone: [facility] 07-31-2024 09:39-0400 Diastolic blood pressure 83 mm[Hg] William Macedo Work Phone: [facility] 07-31-2024 09:39-0400 Heart rate 88 /min William Macedo Work Phone: [facility] 07-31-2024 09:39-0400 SaO2% (BldA) [Mass fraction] 100 % William Macedo Work Phone: [facility] 07-31-2024 09:39-0400 Systolic blood pressure 133 mm[Hg] William Macedo Work Phone: [facility] 07-06-2024 14:32-0500 Body mass index (BMI) [Ratio] 48.4 kg/m2 Jolene Laith 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 SECURITY Work Phone: [facility] 07-06-2024 14:32-0500 Body weight 128.91 kg Jolene Laith 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 SECURITY Work Phone: [facility] 07-06-2024 14:32-0500 Diastolic blood pressure 79 mm[Hg] Jolene Laith 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 SECURITY Work Phone: [facility] 07-06-2024 14:32-0500 Heart rate 80 /min Jolene Laith 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 SECURITY Work Phone: [facility] 07-06-2024 14:32-0500 SaO2% (BldA) [Mass fraction] 98 % Jolene Laith 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 SECURITY Work Phone: [facility] 07-06-2024 14:32-0500 Systolic blood pressure 115 mm[Hg] Jolene Laith 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 SECURITY Work Phone: [facility] 06-30-2024 09:04-0500 Body mass index (BMI) [Ratio] 48.54 kg/m2 Vikki Sandoval MD Work Phone: [facility] 06-30-2024 09:04-0500 Body weight 129.28 kg Vikki Sandoval MD Work Phone: [facility] 06-30-2024 09:04-0500 Diastolic blood pressure 84 mm[Hg] Vikki Sandoval MD Work Phone: [facility] 06-30-2024 09:04-0500 Heart rate 76 /min Vikki Sandoval MD Work Phone: [facility] 06-30-2024 09:04-0500 SaO2% (BldA) [Mass fraction] 99 % Vikki Sandoval MD Work Phone: [facility] 06-30-2024 09:04-0500 Systolic blood pressure 124 mm[Hg] Vikki Sandoval MD Work Phone: [facility] 06-23-2024 10:32-0500 Body mass index (BMI) [Ratio] 49.68 kg/m2 Jeni Naranjo 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 SECURITY Work Phone: [facility] 06-23-2024 10:32-0500 Body temperature 100.4 [degF] Jeni Naranjo 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 SECURITY Work Phone: [facility] 06-23-2024 10:32-0500 Body weight 132.3 kg Jeni Naranjo 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 SECURITY Work Phone: [facility] 06-23-2024 10:32-0500 Diastolic blood pressure 82 mm[Hg] Jeni Praisler-Wood 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 SECURITY Work Phone: [facility] 06-23-2024 10:32-0500 Heart rate 146 /min Jeni Praisler-Wood 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 SECURITY Work Phone: [facility] 06-23-2024 10:32-0500 Respiratory rate 20 /min Jeni Praisler-Wood 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 SECURITY Work Phone: [facility] 06-23-2024 10:32-0500 SaO2% (BldA) [Mass fraction] 98 % Jeni Praisler-Wood 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 SECURITY Work Phone: [facility] 06-23-2024 10:32-0500 Systolic blood pressure 124 mm[Hg] Jeni Praisler-Wood 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 SECURITY Work Phone: [facility] 06-19-2024 14:20-0500 Body temperature 97.39 [degF] Treatment Wstr Work Phone: [facility] 06-19-2024 14:20-0500 Diastolic blood pressure 89 mm[Hg] Treatment Wstr Work Phone: [facility] 06-19-2024 14:20-0500 Heart rate 65 /min Treatment Wstr Work Phone: [facility] 06-19-2024 14:20-0500 Respiratory rate 18 /min Treatment Wstr Work Phone: [facility] 06-19-2024 14:20-0500 SaO2% (BldA) [Mass fraction] 99 % Treatment Wstr Work Phone: [facility] 06-19-2024 14:20-0500 Systolic blood pressure 130 mm[Hg] Treatment Wstr Work Phone: [facility] 06-17-2024 15:11-0500 Body temperature 97.81 [degF] Treatment Wstr Work Phone: [facility] 06-17-2024 15:11-0500 Diastolic blood pressure 89 mm[Hg] Treatment Wstr Work Phone: [facility] 06-17-2024 15:11-0500 Heart rate 75 /min Treatment Wstr Work Phone: [facility] 06-17-2024 15:11-0500 SaO2% (BldA) [Mass fraction] 98 % Treatment Wstr Work Phone: [facility] 06-17-2024 15:11-0500 Systolic blood pressure 135 mm[Hg] Treatment Wstr Work Phone: [facility] 06-15-2024 08:00-0500 Body temperature 97.9 [degF] Treatment Wstr Work Phone: [facility] 06-15-2024 08:00-0500 Diastolic blood pressure 80 mm[Hg] Treatment Wstr Work Phone: [facility] 06-15-2024 08:00-0500 Heart rate 75 /min Treatment Wstr Work Phone: [facility] 06-15-2024 08:00-0500 Respiratory rate 18 /min Treatment Wstr Work Phone: [facility] 06-15-2024 08:00-0500 SaO2% (BldA) [Mass fraction] 98 % Treatment Wstr Work Phone: [facility] 06-15-2024 08:00-0500 Systolic blood pressure 119 mm[Hg] Treatment Wstr Work Phone: [facility] 06-12-2024 09:25-0500 Body temperature 98.1 [degF] Treatment Wstr Work Phone: [facility] 06-12-2024 09:25-0500 Diastolic blood pressure 83 mm[Hg] Treatment Wstr Work Phone: [facility] 06-12-2024 09:25-0500 Heart rate 78 /min Treatment Wstr Work Phone: [facility] 06-12-2024 09:25-0500 SaO2% (BldA) [Mass fraction] 98 % Treatment Wstr Work Phone: [facility] 06-12-2024 09:25-0500 Systolic blood pressure 132 mm[Hg] Treatment Wstr Work Phone: [facility] 06-10-2024 14:56-0500 Body mass index (BMI) [Ratio] 49.56 kg/m2 Treatment Wstr Work Phone: [facility] 06-10-2024 14:56-0500 Body temperature 97.7 [degF] Treatment Wstr Work Phone: [facility] 06-10-2024 14:56-0500 Body weight 132 kg Treatment Wstr Work Phone: [facility] 06-10-2024 14:56-0500 Diastolic blood pressure 100 mm[Hg] Treatment Wstr Work Phone: [facility] 06-10-2024 14:56-0500 Heart rate 95 /min Treatment Wstr Work Phone: [facility] 06-10-2024 14:56-0500 SaO2% (BldA) [Mass fraction] 98 % Treatment Wstr Work Phone: [facility] 06-10-2024 14:56-0500 Systolic blood pressure 151 mm[Hg] Treatment Wstr Work Phone: [facility] 06-03-2024 08:34-0500 Body mass index (BMI) [Ratio] 49.56 kg/m2 Sridevi Masci DO Work Phone: [facility] 06-03-2024 08:34-0500 Body temperature 97.59 [degF] Sridevi Masci DO Work Phone: [facility] 06-03-2024 08:34-0500 Body weight 132 kg Sridevi Masci DO Work Phone: [facility] 06-03-2024 08:34-0500 Diastolic blood pressure 87 mm[Hg] Sridevi Masci DO Work Phone: [facility] 06-03-2024 08:34-0500 Heart rate 88 /min Sridevi Masci DO Work Phone: [facility] 06-03-2024 08:34-0500 SaO2% (BldA) [Mass fraction] 97 % Sridevi Ramirez DO Work Phone: [facility] 06-03-2024 08:34-0500 Systolic blood pressure 134 mm[Hg] Sridevi Ramirez DO Work Phone: [facility] 05-20-2024 08:02-0500 Body mass index (BMI) [Ratio] 49.22 kg/m2 Vikki Sandoval MD Work Phone: [facility] 05-20-2024 08:02-0500 Body weight 131.09 kg Vikki Sandoval MD Work Phone: [facility] 05-20-2024 08:02-0500 Diastolic blood pressure 84 mm[Hg] Vikki Sandoval MD Work Phone: [facility] 05-20-2024 08:02-0500 Heart rate 85 /min Vikkimichaela Sandoval MD Work Phone: [facility] 05-20-2024 08:02-0500 SaO2% (BldA) [Mass fraction] 99 % Vikki Sandoval MD Work Phone: [facility] 05-20-2024 08:02-0500 Systolic blood pressure 136 mm[Hg] Vikki Sandoval MD Work Phone: [facility] 04-10-2024 10:48-0500 Body mass index (BMI) [Ratio] 48.74 kg/m2 Vikki Sandoval MD Work Phone: [facility] 04-10-2024 10:48-0500 Body weight 129.82 kg Vikki Sandoval MD Work Phone: [facility] 04-10-2024 10:48-0500 Diastolic blood pressure 90 mm[Hg] Vikki Sandoval MD Work Phone: [facility] 04-10-2024 10:48-0500 Heart rate 79 /min Vikki Sandoval MD Work Phone: [facility] 04-10-2024 10:48-0500 SaO2% (BldA) [Mass fraction] 99 % Vikki Sandoval MD Work Phone: [facility] 04-10-2024 10:48-0500 Systolic blood pressure 134 mm[Hg] Vikki Sandoval MD Work Phone: [facility] 03-17-2024 11:08-0500 Body mass index (BMI) [Ratio] 49.22 kg/m2 Jolene Berry MD Work Phone: [facility] 03-17-2024 11:08-0500 Body weight 131.09 kg Jolene Berry MD Work Phone: [facility] 03-17-2024 11:08-0500 Diastolic blood pressure 90 mm[Hg] Jolene Berry MD Work Phone: [facility] 03-17-2024 11:08-0500 Systolic blood pressure 128 mm[Hg] Jolene Berry MD Work Phone: [facility] 03-02-2024 10:11-0400 Body mass index (BMI) [Ratio] 49.77 kg/m2 Vikki Sandoval MD Work Phone: [facility] 03-02-2024 10:11-0400 Body weight 132.54 kg Vikki Sandoval MD Work Phone: [facility] 03-02-2024 10:11-0400 Diastolic blood pressure 70 mm[Hg] Vikki Sandoval MD Work Phone: [facility] 03-02-2024 10:11-0400 Heart rate 82 /min Vikki Sandoval MD Work Phone: [facility] 03-02-2024 10:11-0400 SaO2% (BldA) [Mass fraction] 99 % Vikki Sandoval MD Work Phone: [facility] 03-02-2024 10:11-0400 Systolic blood pressure 122 mm[Hg] Vikki Sandoval MD Work Phone: [facility] 02-26-2024 08:45-0400 Body mass index (BMI) [Ratio] 49.9 kg/m2 Itz Burris MD Work Phone: [facility] 02-26-2024 08:45-0400 Body weight 132.9 kg Itz Burris MD Work Phone: [facility] 02-26-2024 08:45-0400 Diastolic blood pressure 66 mm[Hg] Itz Burris MD Work Phone: [facility] 02-26-2024 08:45-0400 Systolic blood pressure 128 mm[Hg] Itz Burris MD Work Phone: [facility] 02-25-2024 13:54-0400 Body height 163.2 cm Sridevi Ashleyi DO Work Phone: [facility] 02-25-2024 13:54-0400 Body mass index (BMI) [Ratio] 50.07 kg/m2 Sridevi Masci DO Work Phone: [facility] 02-25-2024 13:54-0400 Body temperature 98.2 [degF] Sridevi Masci DO Work Phone: [facility] 02-25-2024 13:54-0400 Body weight 133.36 kg Sridevi Masci DO Work Phone: [facility] 02-25-2024 13:54-0400 Diastolic blood pressure 95 mm[Hg] Sridevi Masci DO Work Phone: [facility] 02-25-2024 13:54-0400 Heart rate 95 /min Sridevi Masci DO Work Phone: [facility] 02-25-2024 13:54-0400 SaO2% (BldA) [Mass fraction] 99 % Sridevi Masci DO Work Phone: [facility] 02-25-2024 13:54-0400 Systolic blood pressure 141 mm[Hg] Sridevi Ramirez DO Work Phone: [facility] 01-02-2024 07:08-0400 Body mass index (BMI) [Ratio] 49.35 kg/m2 John Avaloskalyn 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 SECURITY Work Phone: [facility] 01-02-2024 07:08-0400 Body weight 132.45 kg John Avalosury 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 SECURITY Work Phone: [facility] 01-02-2024 07:08-0400 Diastolic blood pressure 84 mm[Hg] John Avalosury 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 SECURITY Work Phone: [facility] 01-02-2024 07:08-0400 Systolic blood pressure 124 mm[Hg] John Avalosury 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 SECURITY Work Phone: [facility] 12-05-2023 10:32-0400 Body height 163.8 cm Jolene Berry MD Work Phone: [facility] 12-05-2023 10:32-0400 Body mass index (BMI) [Ratio] 49.85 kg/m2 Jolene Berry MD Work Phone: [facility] 12-05-2023 10:32-0400 Body weight 133.81 kg Jolene Berry MD Work Phone: [facility] 12-05-2023 10:32-0400 Diastolic blood pressure 98 mm[Hg] Jolene Berry MD Work Phone: [facility] 12-05-2023 10:32-0400 Heart rate 87 /min Jolene Berry MD Work Phone: [facility] 12-05-2023 10:32-0400 SaO2% (BldA) [Mass fraction] 100 % Jolene Berry MD Work Phone: [facility] 12-05-2023 10:32-0400 Systolic blood pressure 136 mm[Hg] Jolene Berry MD Work Phone: [facility] 12-04-2023 07:57-0400 Body mass index (BMI) [Ratio] 50.98 kg/m2 John Haury 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 SECURITY Work Phone: [facility] 12-04-2023 07:57-0400 Body weight 134.72 kg John Haury 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 SECURITY Work Phone: [facility] 12-04-2023 07:57-0400 Diastolic blood pressure 82 mm[Hg] John Haury 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 SECURITY Work Phone: [facility] 12-04-2023 07:57-0400 Systolic blood pressure 126 mm[Hg] John Haury 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 SECURITY Work Phone: [facility] 11-28-2023 12:02-0400 Diastolic blood pressure 90 mm[Hg] John Haury 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 SECURITY Work Phone: [facility] 11-28-2023 12:02-0400 Systolic blood pressure 140 mm[Hg] John Haury 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 SECURITY Work Phone: [facility] 11-28-2023 11:34-0400 Body mass index (BMI) [Ratio] 51.39 kg/m2 John Haury 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 SECURITY Work Phone: [facility] 11-28-2023 11:34-0400 Body weight 135.81 kg John Haury 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 SECURITY Work Phone: [facility] 11-22-2023 14:11-0400 Body height 162.6 cm Joe Jean MD Work Phone: [facility] 11-22-2023 14:11-0400 Body mass index (BMI) [Ratio] 51.65 kg/m2 Joe Jean MD Work Phone: [facility] 11-22-2023 14:11-0400 Body temperature 98.29 [degF] Joe Jean MD Work Phone: [facility] 11-22-2023 14:11-0400 Body weight 136.5 kg Joe Jean MD Work Phone: [facility] 11-22-2023 14:11-0400 Diastolic blood pressure 112 mm[Hg] Joe Jean MD Work Phone: [facility] 11-22-2023 14:11-0400 Heart rate 92 /min Joe Jean MD Work Phone: [facility] 11-22-2023 14:11-0400 Systolic blood pressure 155 mm[Hg] Joe Jean MD Work Phone: [facility] 11-13-2023 14:40-0400 Body mass index (BMI) [Ratio] 52.01 kg/m2 John Luque APRN.SOLUTIONS EXECUTIVE SECURITY Work Phone: [facility] 11-13-2023 14:40-0400 Body weight 137.44 kg Johnarsen Luque APRN.SOLUTIONS EXECUTIVE SECURITY Work Phone: [facility] 11-13-2023 14:40-0400 Diastolic blood pressure 88 mm[Hg] John Luque APRN.SOLUTIONS EXECUTIVE SECURITY Work Phone: [facility] 11-13-2023 14:40-0400 Heart rate 98 /min Johnarsen Luque 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 SECURITY Work Phone: [facility] 11-13-2023 14:40-0400 Respiratory rate 18 /min John Hakalyn HEATONN.SOLUTIONS EXECUTIVE SECURITY Work Phone: [facility] 11-13-2023 14:40-0400 SaO2% (BldA) [Mass fraction] 98 % John Luque APRN.SOLUTIONS EXECUTIVE SECURITY Work Phone: [facility] 11-13-2023 14:40-0400 Systolic blood pressure 140 mm[Hg] John Luque APRN.SOLUTIONS EXECUTIVE SECURITY Work Phone: [facility] 11-04-2023 07:39-0400 Body height 162.6 cm John Luque APRN.SOLUTIONS EXECUTIVE SECURITY Work Phone: [facility] 11-04-2023 07:39-0400 Body mass index (BMI) [Ratio] 51.63 kg/m2 John Luque 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 SECURITY Work Phone: [facility] 11-04-2023 07:39-0400 Body weight 136.44 kg Johnarsen Luque 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 SECURITY Work Phone: [facility] 11-04-2023 07:39-0400 Diastolic blood pressure 70 mm[Hg] John Luque 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 SECURITY Work Phone: [facility] 11-04-2023 07:39-0400 Systolic blood pressure 134 mm[Hg] John Luque 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 SECURITY Work Phone: [facility] 10-22-2023 15:35-0400 Body weight 137.89 kg Javier Riojas 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 SECURITY Work Phone: [facility] 10-22-2023 15:35-0400 Diastolic blood pressure 90 mm[Hg] Javier Simsoble 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 SECURITY Work Phone: [facility] 10-22-2023 15:35-0400 Heart rate 108 /min Javier Riojas 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 SECURITY Work Phone: [facility] 10-22-2023 15:35-0400 Respiratory rate 14 /min Javier Levioble 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 SECURITY Work Phone: [facility] 10-22-2023 15:35-0400 Systolic blood pressure 138 mm[Hg] Javier Simsoble 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 SECURITY Work Phone: [facility] 09-23-2023 15:56-0400 Body weight 137.44 kg Javier Riojas 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 SECURITY Work Phone: [facility] 09-23-2023 15:56-0400 Diastolic blood pressure 86 mm[Hg] Javier Levioble 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 SECURITY Work Phone: [facility] 09-23-2023 15:56-0400 Heart rate 92 /min Javier Levioble 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 SECURITY Work Phone: [facility] 09-23-2023 15:56-0400 Respiratory rate 14 /min Javier Levioble 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 SECURITY Work Phone: [facility] 09-23-2023 15:56-0400 Systolic blood pressure 134 mm[Hg] Javier Riojas 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 SECURITY Work Phone: [facility] 08-26-2023 15:46-0400 Body weight 140.16 kg Javier Riojas 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 SECURITY Work Phone: [facility] 08-26-2023 15:46-0400 Diastolic blood pressure 86 mm[Hg] Javier Riojas 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 SECURITY Work Phone: [facility] 08-26-2023 15:46-0400 Heart rate 116 /min Javier Riojas 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 SECURITY Work Phone: [facility] 08-26-2023 15:46-0400 Respiratory rate 16 /min Javier Riojas 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 SECURITY Work Phone: [facility] 08-26-2023 15:46-0400 Systolic blood pressure 132 mm[Hg] Javier Riojas 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 SECURITY Work Phone: [facility] 04-10-2022 13:52-0500 Body height 162.56 cm Trenton Briceñod Work Phone: [facility] Work Phone: 04-10-2022 13:52-0500 Body mass index (BMI) [Ratio] 45.86 kg/m2 Trenton Briceñod Work Phone: [facility] Work Phone: 04-10-2022 13:52-0500 Body surface area Derived from formula 2.21 m2 Trenton Briceñod Work Phone: [facility] Work Phone: 04-10-2022 13:52-0500 Body weight 121.2 kg Trenton Briceñod Work Phone: [facility] Work Phone: 04-10-2022 13:52-0500 Diastolic blood pressure 80 mm[Hg] Trenton Parr Abram Work Phone: [facility] Work Phone: 04-10-2022 13:52-0500 Heart rate 84 /min Trenton Parr [place] Work Phone: [facility] Work Phone: 04-10-2022 13:52-0500 Systolic blood pressure 122 mm[Hg] Trenton Parr [place] Work Phone: [facility] Work Phone: 02-06-2022 09:46-0400 Body height 162.56 cm Trenton Parr Abram Work Phone: [facility] Work Phone: 02-06-2022 09:46-0400 Body mass index (BMI) [Ratio] 43.66 kg/m2 Trenton Parr Abram Work Phone: [facility] Work Phone: 02-06-2022 09:46-0400 Body surface area Derived from formula 2.17 m2 Trenton Parr [place] Work Phone: [facility] Work Phone: 02-06-2022 09:46-0400 Body weight 115.39 kg Trenton Briceñod Work Phone: [facility] Work Phone: 02-06-2022 09:46-0400 Diastolic blood pressure 80 mm[Hg] Trenton Parr [place] Work Phone: [facility] Work Phone: 02-06-2022 09:46-0400 Heart rate 89 /min Trenton Parr [place] Work Phone: [facility] Work Phone: 02-06-2022 09:46-0400 Systolic blood pressure 134 mm[Hg] Trenton Parr [place] Work Phone: [facility] Work Phone: 12-18-2021 14:21-0400 Body height 162.56 cm Trenton Parr [place] Work Phone: [facility] Work Phone: 12-18-2021 14:21-0400 Body mass index (BMI) [Ratio] 45.41 kg/m2 Trenton Briceñod Work Phone: [facility] Work Phone: 12-18-2021 14:21-0400 Body surface area Derived from formula 2.2 m2 Trenton Briceñod Work Phone: [facility] Work Phone: 12-18-2021 14:21-0400 Body weight 120 kg Trenton Briceñod Work Phone: [facility] Work Phone: 12-18-2021 14:21-0400 Diastolic blood pressure 72 mm[Hg] Trenton Briceñod Work Phone: [facility] Work Phone: 12-18-2021 14:21-0400 Heart rate 84 /min Trenton Briceñod Work Phone: [facility] Work Phone: 12-18-2021 14:21-0400 Systolic blood pressure 114 mm[Hg] Trenton Briceñod Work Phone: [facility] Work Phone: 12-11-2021 13:49-0400 Body height 162.56 cm Trenton Briceñod Work Phone: [address] Work Phone: 12-11-2021 13:49-0400 Body mass index (BMI) [Ratio] 45.68 kg/m2 Trenton Parr [place] Work Phone: [address] Work Phone: 12-11-2021 13:49-0400 Body surface area Derived from formula 2.21 m2 Trenton Briceñod Work Phone: [address] Work Phone: 12-11-2021 13:49-0400 Body weight 120.72 kg Trenton Parr [place] Work Phone: [address] Work Phone: 12-11-2021 13:49-0400 Diastolic blood pressure 80 mm[Hg] Trenton L [place] Work Phone: [address] Work Phone: 12-11-2021 13:49-0400 Systolic blood pressure 120 mm[Hg] Trenton L Abram Work Phone: [address] Work Phone: 11-21-2021 10:06-0400 Body height 162.56 cm Trenton L [place] Work Phone: [facility] Work Phone: 11-21-2021 10:06-0400 Body mass index (BMI) [Ratio] 46.36 kg/m2 Trenton L Abram Work Phone: [facility] Work Phone: 11-21-2021 10:06-0400 Body surface area Derived from formula 2.22 m2 Trenton L [place] Work Phone: [facility] Work Phone: 11-21-2021 10:06-0400 Body weight 122.5 kg Trenton Parr Abram Work Phone: [facility] Work Phone: 11-21-2021 10:06-0400 Diastolic blood pressure 90 mm[Hg] Trenton L Abram Work Phone: [facility] Work Phone: 11-21-2021 10:06-0400 Heart rate 79 /min Trenton L [place] Work Phone: [facility] Work Phone: 11-21-2021 10:06-0400 SaO2% (BldA) [Mass fraction] 99 % Trenton Valverde Work Phone: [facility] Work Phone: 11-21-2021 10:06-0400 Systolic blood pressure 138 mm[Hg] Trenton Briceñod Work Phone: [facility] Work Phone: 11-20-2021 22:10-0400 Body temperature 98.06 [degF] No Pcp Required [facility] 11-20-2021 22:10-0400 Diastolic blood pressure 93 mm[Hg] No Pcp Required [facility] 11-20-2021 22:10-0400 Heart rate 67 /min No Pcp Required [facility] 11-20-2021 22:10-0400 Respiratory rate 16 /min No Pcp Required [facility] 11-20-2021 22:10-0400 SaO2% (BldA) [Mass fraction] 99 % No Pcp Required [facility] 11-20-2021 22:10-0400 Systolic blood pressure 144 mm[Hg] No Pcp Required [facility] 11-20-2021 16:41-0400 Body height 154.9 cm No Pcp Required [facility] 11-20-2021 16:41-0400 Body weight 124 kg No Pcp Required [facility] 11-07-2021 13:27-0400 Body height 162.56 cm Trenton Briceñod Work Phone: [address] Work Phone: 11-07-2021 13:27-0400 Body mass index (BMI) [Ratio] 47.19 kg/m2 Trenton Briceñod Work Phone: [address] Work Phone: 11-07-2021 13:27-0400 Body surface area Derived from formula 2.24 m2 Trenton Briceñod Work Phone: [address] Work Phone: 11-07-2021 13:27-0400 Body weight 124.7 kg Trenton Parr [place] Work Phone: [address] Work Phone: 11-07-2021 13:27-0400 Diastolic blood pressure 80 mm[Hg] Trenton L [place] Work Phone: [address] Work Phone: 11-07-2021 13:27-0400 Systolic blood pressure 118 mm[Hg] Trenton L [place] Work Phone: [address] Work Phone: 11-03-2021 14:24-0400 Body height 162.56 cm Trenton Parr Abram Work Phone: [facility] Work Phone: 11-03-2021 14:24-0400 Body mass index (BMI) [Ratio] 47.64 kg/m2 Trenton Parr [place] Work Phone: [facility] Work Phone: 11-03-2021 14:24-0400 Body surface area Derived from formula 2.25 m2 Trenton L [place] Work Phone: [facility] Work Phone: 11-03-2021 14:24-0400 Body weight 125.9 kg Trenton Parr [place] Work Phone: [facility] Work Phone: 11-03-2021 14:24-0400 Diastolic blood pressure 80 mm[Hg] Trenton L Abram Work Phone: [facility] Work Phone: 11-03-2021 14:24-0400 Heart rate 78 /min Trenton L Abram Work Phone: [facility] Work Phone: 11-03-2021 14:24-0400 Systolic blood pressure 142 mm[Hg] Trenton L Abram Work Phone: [facility] Work Phone: 10-16-2021 13:56-0400 Body height 162.56 cm Trenton L Abram Work Phone: [place] [address] [address] [place] Work Phone: 10-16-2021 13:56-0400 Body mass index (BMI) [Ratio] 48.4 kg/m2 Trenton L Abram Work Phone: [address] Work Phone: 10-16-2021 13:56-0400 Body surface area Derived from formula 2.26 m2 Trenton L Abram Work Phone: [place] [address] [address] [place] Work Phone: 10-16-2021 13:56-0400 Body weight 127.9 kg Trenton L [place] Work Phone: [address] Work Phone: 10-16-2021 13:56-0400 Diastolic blood pressure 80 mm[Hg] Trenton L Abram Work Phone: [place] [address] [address] [place] Work Phone: 10-16-2021 13:56-0400 Systolic blood pressure 130 mm[Hg] Trenton L Abram Work Phone: [place] [address] [address] [place] Work Phone: 10-03-2021 14:23-0400 Body height 162.56 cm Trenton L [place] Work Phone: [facility] Work Phone: 10-03-2021 14:23-0400 Body mass index (BMI) [Ratio] 4.89 kg/m2 Trenton L [place] Work Phone: [facility] Work Phone: 10-03-2021 14:23-0400 Body surface area Derived from formula 0.85 m2 Trenton Parr [place] Work Phone: [facility] Work Phone: 10-03-2021 14:23-0400 Body weight 12.93 kg Trenton L Abram Work Phone: [facility] Work Phone: 10-03-2021 14:23-0400 Diastolic blood pressure 84 mm[Hg] Trenton L Abram Work Phone: [facility] Work Phone: 10-03-2021 14:23-0400 Heart rate 92 /min Trenton L [place] Work Phone: [facility] Work Phone: 10-03-2021 14:23-0400 Systolic blood pressure 134 mm[Hg] Trenton L [place] Work Phone: [facility] Work Phone: 09-08-2021 12:50-0400 Body height 162.56 cm Trenton Parr [place] Work Phone: [facility] Work Phone: 09-08-2021 12:50-0400 Diastolic blood pressure 84 mm[Hg] Trenton L Abram Work Phone: [facility] Work Phone: 09-08-2021 12:50-0400 Heart rate 88 /min Trenton L Abram Work Phone: [facility] Work Phone: 09-08-2021 12:50-0400 Systolic blood pressure 132 mm[Hg] Trenton L Abram Work Phone: [facility] Work Phone: 08-31-2021 15:45-0400 Diastolic blood pressure 83 mm[Hg] No Pcp Required [facility] 08-31-2021 15:45-0400 Heart rate 60 /min No Pcp Required [facility] 08-31-2021 15:45-0400 Respiratory rate 18 /min No Pcp Required [facility] 08-31-2021 15:45-0400 SaO2% (BldA) [Mass fraction] 96 % No Pcp Required [facility] 08-31-2021 15:45-0400 Systolic blood pressure 142 mm[Hg] No Pcp Required [facility] 08-31-2021 12:37-0400 Body height 162.5 cm No Pcp Required [facility] 08-31-2021 12:37-0400 Body temperature 98.06 [degF] No Pcp Required [facility] 08-31-2021 12:37-0400 Body weight 129.5 kg No Pcp Required [facility] 08-31-2021 09:26-0400 Body height 162.56 cm No PCP None NG-Npmeuhx-Ftjhx nd Work Phone: 08-31-2021 09:26-0400 Body mass index (BMI) [Ratio] 50.68 kg/m2 No PCP None NO-Avjdzge-Phyrzvv Work Phone: 08-31-2021 09:26-0400 Body surface area Derived from formula 2.31 m2 No PCP None RP-Nnpafbl-Qhbnxlq Work Phone: 08-31-2021 09:26-0400 Body weight 133.93 kg No PCP None PJ-Vblwsdd-Ngtao nd Work Phone: 08-31-2021 09:26-0400 Diastolic blood pressure 92 mm[Hg] No PCP None TJ-Esaoyts-Jqnmvtn Work Phone: 08-31-2021 09:26-0400 Heart rate 82 /min No PCP None ZF-Vxfockm-Sxnmg nd Work Phone: 08-31-2021 09:26-0400 Systolic blood pressure 135 mm[Hg] No PCP None XV-Fegktws-Oeijdat Work Phone: 08-27-2021 09:18-0400 Body temperature 97.16 [degF] No Pcp Required [facility] 08-27-2021 09:18-0400 Diastolic blood pressure 92 mm[Hg] No Pcp Required [facility] 08-27-2021 09:18-0400 Heart rate 90 /min No Pcp Required [facility] 08-27-2021 09:18-0400 Respiratory rate 18 /min No Pcp Required [facility] 08-27-2021 09:18-0400 SaO2% (BldA) [Mass fraction] 98 % No Pcp Required [facility] 08-27-2021 09:18-0400 Systolic blood pressure 147 mm[Hg] No Pcp Required [facility] 12-14-2020 18:37-0400 Body height 162 cm Adrienne Rinaldi Other Phone: [facility] 12-14-2020 18:37-0400 Body temperature 97.88 [degF] Adrienne Ramireztie Other Phone: [facility] 12-14-2020 18:37-0400 Diastolic blood pressure 87 mm[Hg] Adrienne Ramireztie Other Phone: [facility] 12-14-2020 18:37-0400 Heart rate 73 /min Adrienne Ramireztie Other Phone: [facility] 12-14-2020 18:37-0400 SaO2% (BldA) [Mass fraction] 99 % Adrienne Ramireztie Other Phone: [facility] 12-14-2020 18:37-0400 Systolic blood pressure 137 mm[Hg] Adrienne Ramireztie Other Phone: [facility] 12-08-2020 16:11-0400 Body height 162.6 cm Alvaro Lamb DPM Work Phone: [facility] 12-08-2020 16:11-0400 Body mass index (BMI) [Ratio] 48.06 kg/m2 Alvaro Lamb DPM Work Phone: [facility] 12-08-2020 16:11-0400 Body temperature 97.9 [degF] Alvaro Lamb DPM Work Phone: [facility] 12-08-2020 16:11-0400 Body weight 127.01 kg Alvaro Lamb DPM Work Phone: [facility] 12-08-2020 16:11-0400 Diastolic blood pressure 97 mm[Hg] Alvaro Lamb DPM Work Phone: [facility] 12-08-2020 16:11-0400 Heart rate 81 /min Alvaro Lamb DPM Work Phone: [facility] 12-08-2020 16:11-0400 Systolic blood pressure 143 mm[Hg] Alvaro Lamb DPM Work Phone: [facility] 09-28-2020 10:00-0400 Body temperature 97.59 [degF] Alvaro Lamb DPM Work Phone: [facility] 09-28-2020 10:00-0400 Diastolic blood pressure 77 mm[Hg] Alvaro Lamb DPM Work Phone: [facility] 09-28-2020 10:00-0400 Heart rate 94 /min Alvaro Lamb DPM Work Phone: [facility] 09-28-2020 10:00-0400 Respiratory rate 16 /min Alvaro Lamb DPM Work Phone: [facility] 09-28-2020 10:00-0400 SaO2% (BldA) [Mass fraction] 94 % Alvarodelmer Lamb DPM Work Phone: [facility] 09-28-2020 10:00-0400 Systolic blood pressure 125 mm[Hg] Alvraodelmer JaimeLamb DPM Work Phone: [facility] 09-28-2020 06:45-0400 Body height 162.6 cm Alvaro Lamb DPM Work Phone: [facility] 09-28-2020 06:45-0400 Body mass index (BMI) [Ratio] 49.44 kg/m2 Alvaro Lamb DPM Work Phone: [facility] 09-28-2020 06:45-0400 Body weight 130.64 kg Alvaro Lamb DPM Work Phone: [facility] 09-14-2020 07:58-0400 Body height 162.6 cm Mildred Wagner [employer] Work Phone: [facility] 09-14-2020 07:58-0400 Body mass index (BMI) [Ratio] 48.06 kg/m2 Mildredtrey Wagner [employer] Work Phone: [facility] 09-14-2020 07:58-0400 Body weight 127.01 kg Mildred Wagner CNP Work Phone: [facility] 09-14-2020 07:58-0400 Diastolic blood pressure 84 mm[Hg] Mildred Wagner CNP Work Phone: [facility] 09-14-2020 07:58-0400 Heart rate 93 /min Mildred Wagner CNP Work Phone: [facility] 09-14-2020 07:58-0400 SaO2% (BldA) [Mass fraction] 95 % Mildred Wagner CNP Work Phone: [facility] 09-14-2020 07:58-0400 Systolic blood pressure 130 mm[Hg] Mildred Wagner CNP Work Phone: [facility] 01-06-2020 10:58-0400 BMI (Body Mass Index) 42.91 kg/m2 [facility] 01-06-2020 10:58-0400 Body weight 113.4 kg [facility] 01-06-2020 10:58-0400 BP Diastolic 94 mm[Hg] [facility] 01-06-2020 10:58-0400 BP Systolic 141 mm[Hg] [facility] 01-06-2020 10:58-0400 Height 162.6 cm [facility] 01-06-2020 10:58-0400 Pulse (Heart Rate) 93 /min [facility] 12-21-2019 18:21-0400 BMI (Body Mass Index) 42.91 kg/m2 William Strong [facility] 12-21-2019 18:21-0400 Body Temperature 98.4 [degF] William [facility] 12-21-2019 18:21-0400 Body weight 113.4 kg William [facility] 12-21-2019 18:21-0400 BP Diastolic 86 mm[Hg] William [facility] 12-21-2019 18:21-0400 BP Systolic 133 mm[Hg] William [facility] 12-21-2019 18:21-0400 Height 162.6 cm William [facility] 12-21-2019 18:21-0400 Pulse (Heart Rate) 76 /min William [facility] 12-21-2019 18:21-0400 Pulse Oximetry 98 % William [facility] 12-21-2019 18:21-0400 Respiratory Rate 16 /min William [facility] Encounters Encounter Date Encounter Type Care Provider Facility Start: 03-01-2025 End: 03-01-2025 ambulatory JAVIER RIOJAS Facility:[facility] Start: 02-26-2025 End: 02-26-2025 ambulatory JAVIER RIOJAS Facility:[facility] Start: 02-26-2025 Encounter for genera l adult medical examination without abnormal findings JAVIER RIOJAS [facility] Start: 02-03-2025 End: 02-03-2025 ambulatory MARIANO MADRID Facility:[facility] Start: 02-02-2025 End: 02-02-2025 ambulatory WILLIAM MACEDO Facility:[facility] Start: 02-01-2025 End: 02-01-2025 ambulatory WILLIAM MACEDO Facility:[facility] Start: 12-14-2024 End: 12-21-2024 Refill Javier Riojas APRN.CNP Work Phone: [facility] [place] Comment on above: Refill Request Start: 11-18-2024 End: 01-18-2025 Follow-up encounter John Luque APRN.CNP Work Phone: OB/Gynecology Start: 11-11-2024 End: 11-11-2024 Patient encounter procedure John Luque APRN.CNP Work Phone: OB/Gynecology Comment on above: Encounter for gyneco logical examination (general) (routine) without abnormal findings (Primary Dx); Screening for cervical cancer; Encounter for screening for human papillomavirus (HPV); Family history of breast cancer; Need for prophylactic vaccination/inoculation against viral disease Start: 11-11-2024 End: 11-11-2024 Patient encounter status John Luque APRN.CNP Work Phone: [facility] Start: 11-11-2024 End: 11-11-2024 ambulatory JOHN LUQUE Facility:[facility] Start: 11-11-2024 Encounter for gynecological examination (general) (routine) without abnormal findings JOHN LUQUE [facility] Start: 10-27-2024 End: 10-27-2024 ambulatory WILLIAM SIMSIGHT Facility:[facility] Start: 09-01-2024 End: 11-01-2024 Follow-up encounter Vikki Sandoval MD Work Phone: OB/Gynecology Start: 09-01-2024 End: 09-01-2024 Telephone encounter Vikki Sandoval MD Work Phone: OB/Gynecology Comment on above: Insurance Authorizat ion Start: 08-31-2024 End: 08-31-2024 Patient encounter procedure Vikki Sandoval MD Work Phone: OB/Gynecology Comment on above: Malaise and fatigue (Primary Dx); JOSEPH (obstructive sleep apnea); RLS (restless legs syndrome); Insulin resistance; Elevated blood pressure reading without diagnosis of hypertension; Vitamin D deficiency; Hypertriglyceridemia; Hypothyroidism, unspecified type; Class 3 severe obesity with body mass index (BMI) of 50.0 to 59.9 in adult, unspecified obesity type, unspecified whether serious comorbidity present Start: 08-31-2024 End: 08-31-2024 ambulatory VIKKI SANDOVAL Facility:[facility] Start: 08-15-2024 End: 08-17-2024 Refill Paige Chilel APRN.CNP Work Phone: [facility] Comment on above: Refill Request Start: 07-31-2024 End: 07-31-2024 ambulatory William Macedo Work Phone: Hematology/Oncology Comment on above: Iron deficiency anem ia, unspecified iron deficiency anemia type (Primary Dx); Generalized abdominal pain Start: 07-31-2024 End: 07-31-2024 Patient encounter procedure William Macedo Work Phone: Hematology/Oncology Start: 07-24-2024 End: 07-24-2024 ambulatory JAVIER RIOJAS Facility:[facility] Start: 07-23-2024 End: 07-24-2024 Orders Only William Macedo Work Phone: Hematology/Oncology Comment on above: Iron deficiency anem ia due to chronic blood loss (Primary Dx); Iron malabsorption; Other vitamin B12 deficiency anemia Start: 07-06-2024 End: 07-06-2024 Patient encounter procedure Jolene Ozuna APRN.CNP Work Phone: Neurology Comment on above: Obstructive sleep ap nhoelia (Primary Dx); RLS (restless legs syndrome); Generalized anxiety disorder; Chronic insomnia; Sleep paralysis; Dream enactment behavior; Night terrors Start: 07-06-2024 End: 07-06-2024 ambulatory VIKKI SANDOVAL Facility:[facility] Start: 07-01-2024 End: 08-31-2024 Follow-up encounter Vikki Sandoval MD Work Phone: OB/Gynecology Start: 06-30-2024 End: 06-30-2024 ambulatory VIKKI SANDOVAL Facility:[facility] Start: 06-30-2024 End: 06-30-2024 Patient encounter procedure Vikki Sandoval MD Work Phone: OB/Gynecology Comment on above: Malaise and fatigue (Primary Dx); JOSEPH (obstructive sleep apnea); Insulin resistance; Elevated blood pressure reading without diagnosis of hypertension; Vitamin D deficiency; Hypertriglyceridemia; Hypothyroidism, unspecified type; Class 3 severe obesity with body mass index (BMI) of 50.0 to 59.9 in adult, unspecified obesity type, unspecified whether serious comorbidity present (HCC) Start: 06-24-2024 End: 06-24-2024 Follow-up encounter Aniyah MICHAEL Work Phone: [facility] Start: 06-23-2024 End: 06-23-2024 ambulatory JAVIER RIOJAS Facility:[facility] Start: 06-23-2024 End: 06-23-2024 Patient encounter procedure Jeni Naranjo APRN.CNP Work Phone: [facility] Comment on above: Flu-like symptoms (P rimary Dx); Influenza A; Tachycardia Start: 06-19-2024 End: 06-19-2024 ambulatory Treatment Rm 14 [facility] [employer] Work Phone: Hematology/Oncology Comment on above: Menorrhagia with irr egular cycle (Primary Dx); Iron malabsorption; Iron deficiency anemia due to chronic blood loss Start: 06-19-2024 End: 06-19-2024 Telephone encounter Vikki Sandoval MD Work Phone: OB/Gynecology Comment on above: Referral Information Start: 06-17-2024 End: 06-17-2024 ambulatory Treatment Rm 14 [facility] [employer] Work Phone: Hematology/Oncology Comment on above: Menorrhagia with irr egular cycle (Primary Dx); Iron malabsorption; Iron deficiency anemia due to chronic blood loss Start: 06-15-2024 End: 06-15-2024 ambulatory Treatment Rm 14 [facility] [employer] Work Phone: Hematology/Oncology Comment on above: Menorrhagia with irr egular cycle (Primary Dx); Iron malabsorption; Iron deficiency anemia due to chronic blood loss Start: 06-14-2024 End: 06-15-2024 Refill Vikki Sandoval MD Work Phone: OB/Gynecology Comment on above: Refill Request Start: 06-12-2024 End: 06-12-2024 ambulatory Treatment Rm 15 [facility] [employer] Work Phone: Hematology/Oncology Comment on above: Menorrhagia with irr egular cycle (Primary Dx); Iron malabsorption; Iron deficiency anemia due to chronic blood loss Start: 06-10-2024 End: 06-10-2024 ambulatory Treatment Rm 15 [facility] Work Phone: Hematology/Oncology Comment on above: Menorrhagia with irr egular cycle (Primary Dx); Iron malabsorption; Iron deficiency anemia due to chronic blood loss Start: 06-04-2024 End: 06-04-2024 Refill Vikki Sandoval MD Work Phone: OB/Gynecology Comment on above: Med Change Request Start: 06-04-2024 End: 06-22-2024 Telephone encounter Vikki Sandoval MD Work Phone: OB/Gynecology Comment on above: Insurance Authorizat ion Start: 06-03-2024 End: 06-03-2024 ambulatory SRIDEVI RAMIREZ Facility:[facility] Start: 06-03-2024 End: 06-03-2024 Office outpatient visit 25 minutes Sridevi Ramirez DO Work Phone: Hematology/Oncology Comment on above: Iron deficiency anem ia due to chronic blood loss (Primary Dx); Iron malabsorption; Menorrhagia with irregular cycle; History of anemia due to vitamin B12 deficiency Start: 05-25-2024 End: 05-26-2024 ambulatory VIKKI SANDOVAL Facility:[facility] Start: 05-21-2024 End: 05-28-2024 [facility] Work Phone: Neurology Start: 05-20-2024 End: 05-20-2024 ambulatory VIKKI SANDOVAL Facility:[facility] Start: 05-20-2024 End: 05-20-2024 Patient encounter procedure Vikki Sandoval MD Work Phone: OB/Gynecology Comment on above: Malaise and fatigue (Primary Dx); Insulin resistance; Elevated blood pressure reading without diagnosis of hypertension; Vitamin D deficiency; Hypertriglyceridemia; Hypothyroidism, unspecified type; Class 3 severe obesity with body mass index (BMI) of 50.0 to 59.9 in adult, unspecified obesity type, unspecified whether serious comorbidity present (HCC) Start: 05-19-2024 End: 05-19-2024 Refill Javier Riojas APRN.CNP Work Phone: [facility] Comment on above: Refill Request Start: 05-11-2024 End: 05-11-2024 ambulatory JAVIER RIOJAS Facility:[facility] Start: 05-09-2024 End: 05-11-2024 Refill Vikki Sandoval MD Work Phone: OB/Gynecology Comment on above: Med Change Request Start: 05-08-2024 End: 05-08-2024 Orders Only William Macedo Work Phone: Hematology/Oncology Comment on above: Iron deficiency anem ia due to chronic blood loss (Primary Dx); Other vitamin B12 deficiency anemia; Menorrhagia with irregular cycle Start: 05-04-2024 End: 05-04-2024 Refill Vikki Sandoval MD Work Phone: OB/Gynecology Comment on above: Med Change Request Start: 04-15-2024 End: 04-17-2024 Telephone encounter Vikki Sandoval MD Work Phone: OB/Gynecology Comment on above: Insurance Authorizat ion Start: 04-10-2024 End: 04-10-2024 ambulatory VIKKI SANDOVAL Facility:[facility] Start: 04-10-2024 End: 04-10-2024 Patient encounter procedure Vikki Sandoval MD Work Phone: OB/Gynecology Comment on above: Malaise and fatigue (Primary Dx); Insulin resistance; Vitamin D deficiency; Hypertriglyceridemia; Hypothyroidism, unspecified type; Class 3 severe obesity with body mass index (BMI) of 50.0 to 59.9 in adult, unspecified obesity type, unspecified whether serious comorbidity present (HCC) Start: 03-17-2024 End: 03-17-2024 ambulatory JOLENE BERRY Facility:[facility] Start: 03-17-2024 End: 03-17-2024 Patient encounter procedure Jolene Berry MD Work Phone: OB/Gynecology Comment on above: Menorrhagia with irr egular cycle (Primary Dx) Start: 03-15-2024 End: 03-16-2024 Telephone encounter Sridevi Ramirez DO Work Phone: Hematology/Oncology Comment on above: Results Start: 03-10-2024 End: 03-10-2024 ambulatory JAVIER RIOJAS Facility:[facility] Start: 03-08-2024 End: 03-09-2024 Refill Javier Riojas APRN.[employer] Work Phone: [facility] Comment on above: Refill Request Start: 03-03-2024 End: 03-03-2024 Orders Only Vikki Sandoval MD Work Phone: OB/Gynecology Comment on above: Insulin resistance ( Primary Dx) Start: 03-02-2024 End: 03-02-2024 ambulatory VIKKI SANDOVAL Facility:[facility] Start: 03-02-2024 End: 03-02-2024 ambulatory VIKKI SANDOVAL Facility:[facility] Start: 03-02-2024 End: 03-02-2024 Patient encounter procedure Vikki Sandoval MD Work Phone: OB/Gynecology Comment on above: Malaise and fatigue (Primary Dx); Hypertriglyceridemia; Hypothyroidism, unspecified type; Screening cholesterol level; Screening for deficiency anemia; Screening for diabetes mellitus; Screening for metabolic disorder; Screening for thyroid disorder; Encounter for vitamin deficiency screening; Class 3 severe obesity with body mass index (BMI) of 45.0 to 49.9 in adult, unspecified obesity type, unspecified whether serious comorbidity present (HCC); Class 3 severe obesity with body mass index (BMI) of 50.0 to 59.9 in adult, unspecified obesity type, unspecified whether serious comorbidity present (HCC) Start: 02-26-2024 End: 02-26-2024 Patient encounter procedure Itz Burris MD Work Phone: OB/Gynecology Comment on above: Encounter for IUD re moval (Primary Dx) Start: 02-25-2024 End: 02-25-2024 ambulatory Sridevi Ramirez DO Work Phone: Hematology/Oncology Comment on above: Menorrhagia with irr egular cycle (Primary Dx); Iron deficiency anemia due to chronic blood loss; Other vitamin B12 deficiency anemia; Abnormal laboratory test Start: 02-25-2024 End: 02-25-2024 Patient encounter procedure Sridevi Ramirez DO Work Phone: Hematology/Oncology Start: 02-19-2024 End: 02-20-2024 Patient encounter procedure Itz Burris MD Work Phone: OB/Gynecology Comment on above: Menorrhagia with irr egular cycle; Pelvic pain in female Refill Request Start: 02-18-2024 End: 02-18-2024 ambulatory Jolene Berry MD Work Phone: OB/Gynecology Comment on above: Pain and bleeding Start: 02-04-2024 End: 02-05-2024 Refill Javier Riojas APRN.[employer] Work Phone: [facility] Comment on above: Refill Request Abnormal laboratory test (Primary Dx); Iron deficiency anemia due to chronic blood loss Appointment Start: 01-06-2024 End: 01-06-2024 Telephone encounter John Luque APRN.[employer] Work Phone: OB/Gynecology Comment on above: Patient Update Start: 01-03-2024 End: 01-03-2024 Telephone encounter John Luque APRN.[employer] Work Phone: OB/Gynecology Comment on above: Results Start: 01-03-2024 End: 01-03-2024 ambulatory [facility] Start: 01-03-2024 End: 01-03-2024 Patient encounter procedure [employer] [facility] Start: 01-02-2024 End: 01-02-2024 Patient encounter procedure John Luque APRN.[employer] Work Phone: OB/Gynecology Comment on above: Pelvic pain in femal e (Primary Dx) Start: 12-25-2023 Admission to [facility] Jolene Berry MD Work Phone: OB/Gynecology Comment on above: After surgery pain Start: 12-25-2023 ambulatory Jolene ledbetter MD Work Phone: OB/Gynecology Start: 12-23-2023 ambulatory Jolene ledbetter MD Work Phone: OB/Gynecology Comment on above: Iron deficiency anem ia due to chronic blood loss (Primary Dx); Menorrhagia with regular cycle; Encounter for IUD insertion Start: 12-23-2023 Patient encounter procedure Jolene Berry MD Work Phone: OB/Gynecology Start: 12-20-2023 End: 12-20-2023 ambulatory Jolene Berry Facility:[facility] Start: 12-14-2023 Orders Only Jolene ledbetter MD Work Phone: OB/Gynecology Comment on above: Abnormal uterine ble eding (Primary Dx); Iron deficiency Start: 12-12-2023 Refill Javier sweeney APRN.[employer] Work Phone: [facility] Comment on above: Refill Request Start: 12-11-2023 ambulatory John GREENE RN.[employer] Work Phone: OB/Gynecology Comment on above: Continued bleeding Start: 12-05-2023 End: 12-05-2023 Patient encounter procedure Jolene Berry MD Work Phone: OB/Gynecology Comment on above: Iron deficiency (Isela kirit Dx); Menorrhagia with irregular cycle; Endometrial polyp Start: 12-04-2023 End: 12-04-2023 Patient encounter procedure John Luque APRN.[employer] Work Phone: OB/Gynecology Comment on above: Abnormal uterine ble eding (Primary Dx); Pelvic pain in female Start: 11-30-2023 ambulatory John GREENE RN.[employer] Work Phone: OB/Gynecology Comment on above: Bleeding Start: 11-30-2023 End: 11-30-2023 Emergency department patient visit Jocelyn Yang Facility:[facility] Start: 11-28-2023 End: 11-28-2023 Patient encounter procedure John Luque APRN.[employer] Work Phone: OB/Gynecology Comment on above: Abnormal uterine ble eding (AUB) (Primary Dx) Start: 11-22-2023 End: 11-22-2023 Office outpatient new 45 minutes Joe Jean MD Work Phone: Rheumatology Comment on above: Nausea (Primary Dx); Abnormal laboratory test; Weakness Start: 11-21-2023 Telephone encounter Bre newman MD Work Phone: OB/Gynecology Comment on above: Results Start: 11-20-2023 ambulatory John GREENE RN.[employer] Work Phone: OB/Gynecology Comment on above: Period Start: 11-13-2023 End: 11-13-2023 Patient encounter procedure John Luque APRN.[employer] Work Phone: OB/Gynecology Comment on above: Abnormal uterine ble eding (Primary Dx); Pelvic pain in female; Class 3 severe obesity with body mass index (BMI) of 50.0 to 59.9 in adult, unspecified obesity type, unspecified whether serious comorbidity present (HCC) Start: 11-12-2023 End: 11-12-2023 Subsequent hospital visit by physician [facility] Work Phone: Radiology Comment on above: Abnormal uterine ble eding [N93.9] Start: 11-11-2023 Telephone encounter Javier rasmussen APRN.[employer] Work Phone: [facility] Comment on above: Results Start: 11-06-2023 Telephone encounter John deleon APRN.[employer] Work Phone: OB/Gynecology Comment on above: Results Start: 11-04-2023 End: 11-04-2023 Patient encounter procedure John Luque APRN.[employer] Work Phone: OB/Gynecology Comment on above: Abnormal uterine ble eding (Primary Dx); Screening for cervical cancer; Encounter for screening for human papillomavirus (HPV); Hypothyroidism, unspecified type; Hirsutism Start: 10-31-2023 ambulatory JAVIER RIOJAS [facility] Start: 10-31-2023 End: 10-31-2023 Subsequent hospital visit by physician [facility] Work Phone: Cardiology Lab Start: 10-30-2023 Refill Javier sweeney APRN.CNP Work Phone: [facility] [place] Comment on above: Refill Request Start: 10-22-2023 End: 10-22-2023 Patient encounter procedure Javier Riojas APRN.[employer] Work Phone: [facility] [place] Comment on above: Dizziness (Primary D x); Fatigue, unspecified type; Tachycardia Start: 10-19-2023 Refill Javier sweeney APRN.[employer] Work Phone: [facility] [place] Comment on above: Med Change Request Start: 10-14-2023 Telephone encounter Javier rasmussen APRN.CNP Work Phone: [facility] [place] Comment on above: Results Start: 10-09-2023 End: 10-09-2023 Subsequent hospital visit by physician [facility] Work Phone: Radiology Comment on above: Lump of scalp [R22.0 ] Start: 09-27-2023 Telephone encounter Javier rasmussen APRN.[employer] Work Phone: [facility] [place] Comment on above: Results Start: 09-23-2023 End: 09-23-2023 Patient encounter procedure Javier Riojas APRN.[employer] Work Phone: [facility] [place] Comment on above: Fatigue, unspecified type (Primary Dx); CHARLINE (generalized anxiety disorder); Lump of scalp Start: 09-17-2023 Refill Javier sweeney APRN.CNP Work Phone: [facility] [place] Comment on above: Med Change Request Start: 08-27-2023 Telephone encounter Javier rasmussen APRN.JIM Work Phone: [facility] Comment on above: Results Start: 08-26-2023 End: 08-26-2023 Patient encounter procedure Javier Riojas APRN.JIM Work Phone: [facility] Comment on above: Encounter for immuni zation (Primary Dx); Encounter for annual routine gynecological examination; CHARLINE (generalized anxiety disorder); Hypothyroidism, acquired; Abnormal menstrual periods; Encounter for lipid screening for cardiovascular disease; Screening for diabetes mellitus; Medication management; Iron deficiency anemia, unspecified iron deficiency anemia type Start: 07-03-2023 End: 07-03-2023 Patient encounter procedure Mateus Rg APRN.[facility] Work Phone: [facility] Comment on above: Dizziness (Primary D x) Start: 10-09-[address] Trenton Valverde Fa cility:[id number] Start: 05-16-2022 AUDIT Trenton Valverde Work Phone: [facility] Work Phone: Start: 04-10-2022 Office outpatient vi sit 15 minutes Trenton Valverde Work Phone: [facility] Work Phone: Start: 04-10-[address] Mrs[address] Trenton Valverde Fa cility:[id number] Start: 04-10-2022 [address] Mrs[address] Trenton Valverde Fa cility:[facility] Start: 02-27-2022 amb[address] Mrs. Trenton Valverde Fa cility:[id number] Start: 02-23-2022 amb[address] Mrs. Trenton Valverde Fa cility:[id number] Start: 02-21-2022 amb[address] Mrs. Trenton Valverde Fa cility:[id number] Start: 02-19-2022 [address] Mrs[address] Trenton Valverde Fa cility:[id number] Start: 02-16-2022 [address] Mrs[address] Trenton Valverde Fa cility:[id number] Start: 02-13-2022 [address] Mrs[address] Trenton Valverde Fa cility:[facility] Start: 02-12-2022 [address] Mrs[address] Trenton Valverde Fa cility:[id number] Start: 02-07-2022 Rx Renewal Trenton Valverde Work Phone: [address] Work Phone: Start: 02-06-2022 Office outpatient vi sit 15 minutes Trenton Valverde Work Phone: [facility] Work Phone: Start: 02-06-[address] Trenton Valverde Fa cility:[id number] Start: 01-11-2022 Rx Renewal Trenton Valverde Work Phone: [facility] Work Phone: Start: 01-09-2022 Rx Change Trenton Valverde Work Phone: [facility] [address] [place] Work Phone: Start: 01-02-2022 Rx Renewal Trenton Valverde Work Phone: [facility] [address] [place] Work Phone: Start: 12-19-2021 Chart Update Trenton Valverde Work Phone: [facility] [employer] Work Phone: Start: 12-18-2021 Office outpatient vi sit 15 minutes Trenton Valverde Work Phone: [facility] Work Phone: Start: 12-18-20[address] Trenton Valverde Fa cility:[id number] Start: 12-11-[address] Cherry Webb Fa cility:[id number] Start: 12-11-2021 Rx Renewal Trenton Valverde Work Phone: [place] [address] [address] [place] Work Phone: Start: 11-28-2021 Chart Update Trenton Valverde Work Phone: [facility] Work Phone: Start: 11-23-2021 AUDIT Trenton Briceñod Work Phone: [facility] Work Phone: Start: 11-21-2021 Office outpatient vi sit 15 minutes Trenton Briceñod Work Phone: [facility] Work Phone: Start: 11-21-2021 Patient encounter procedure Trenton Parr Abram [facility] Start: 11-21-[address] Trenton Valverde Fa cility:[id number] Start: 11-20-2021 End: 11-20-2021 Emergency department patient visit Isael Bermudez [facility] Emergency 15 Start: 11-15-2021 Chart Update Trenton Valverde Work Phone: [place] [address] [employer] Work Phone: Start: 11-07-2021 Patient encounter procedure Trenton Valverde Work Phone: [facility] [employer] Work Phone: Start: 11-07-[address] Cherry Webb Fa cility:[facility] Start: 11-03-2021 Office outpatient vi sit 25 minutes Trenton Parr Abram Work Phone: [facility] Work Phone: Start: 11-03-[address] Mrs[address] Trenton Valverde Fa cility:[id number] Start: 10-26-2021 Rx Renewal Trenton Briceñod Work Phone: [facility] Work Phone: Start: 10-23-2021 Chart Update Trenton Valverde Work Phone: [facility] [employer] Work Phone: Start: 10-20-2021 AUDIT Trenton Valverde Work Phone: [facility] [address] [place] Work Phone: Start: 10-20-[address] Trenton Valverde Fa cility:[id number] Start: 10-16-2021 Office outpatient ne w 45 minutes Trenton Briceñod Work Phone: [facility] [address] [place] Work Phone: Start: 10-16-[address] Mrs[address] Trenton Valverde Fa cility:[id number] Start: 10-13-2021 End: 10-14-2021 Emergency department patient visit TRENTON VALVERDE [facility] Start: 10-13-2021 Chart Update Trenton Valverde Work Phone: [facility] Work Phone: Start: 10-04-2021 AUDIT Trenton Valverde Work Phone: [facility] Work Phone: Start: 10-03-2021 Office outpatient vi sit 25 minutes Trenton Valverde Work Phone: [facility] Work Phone: Start: 10-03-2021 Patient encounter procedure Trenton Valverde Work Phone: [facility] Work Phone: Start: 10-03-2021 [address] Mrs[address] Trenton Valverde Fa cility:[id number] Start: 09-11-2021 End: 09-12-2021 Emergency department patient visit JENI L. [facility] Start: 09-11-2021 [address] Mrs[address] Trenton Valverde Fa cility:[id number] Start: 09-08-2021 End: 09-08-2021 Emergency department patient visit JENI L. [facility] Start: 09-08-2021 Office outpatient vi sit 10 minutes Trenton Valverde Work Phone: [facility] Work Phone: Start: 09-08-2021 [address] Mrs[address] Trenton Valverde Fa cility:[id number] Start: 09-01-2021 Patient encounter procedure Mayo Chopra [facility] Preadmit Start: 09-01-2021 [facility], Provider: Mayo Umana, Status: Pen, Time: 11:00 AM No PCP None [facility] Work Phone: Start: 09-01-2021 End: 09-01-2021 [address] Mrs[address] Trenton Valverde Facility:[id number] Start: 08-31-2021 End: 08-31-2021 Emergency department patient visit Nohelia Shaw [facility] Emergency 01 Start: 08-31-[address] Mrs[address] Trenton Valverde Fa cility:[id number] Start: 08-31-2021 Office outpatient ne w 45 minutes No PCP None [facility] Work Phone: Start: 08-30-2021 End: 08-31-2021 [address] Mrs[address] Trenton Valverde Facility:[id number] Start: 08-29-2021 End: 08-29-2021 Emergency department patient visit DO RODRIGO DAMIAN Facility:[id number] Start: 08-25-2021 End: 08-25-2021 ambulatory Donavan Juna Facility:[id number] Start: 08-25-2021 End: 08-27-2021 Evaluation and management of inpatient Alan Draper [facility] Med Surg [place] [id number] 01 Start: 12-14-2020 End: 12-14-2020 Emergency department patient visit Nuris James [facility] Start: 12-08-2020 End: 12-08-2020 ambulatory ALVARO LAMB [facility] Ambulatory Start: 12-08-2020 End: 12-08-2020 Postop follow up visit related to original px Alvaro Lamb DPM Work Phone: [facility] Comment on above: Tendonitis, Achilles , right (Primary Dx); Bone spur of right foot Start: 11-15-2020 ambulatory JENI MAURO [facility] Ambulatory Start: 09-28-2020 End: 09-28-2020 Subsequent hospital visit by physician Alvaro Lamb DPM Work Phone: [facility] Start: 09-25-2020 End: 09-25-2020 ambulatory JENI MAURO [facility] Start: 09-16-2020 End: 09-16-2020 Transcribe Orders Scarlett Rizvi RN [facility] Comment on above: Contact with or expo sure to viral disease (Primary Dx) Start: 09-14-2020 End: 09-14-2020 Office outpatient new 20 minutes Alvaro Lamb DPM Work Phone: [facility] Preadmission Testing Comment on above: Pre-op examination ( Primary Dx); Bone spur of right foot; Morbid obesity with BMI of 45.0-49.9, adult (HCC); Anxiety Start: 09-14-2020 End: 09-14-2020 Preprocedural examination done Alvaro Lamb DPM Work Phone: [facility] Preadmission Testing Start: 08-19-2020 End: 08-19-2020 Transcribe Orders Alvaro Lamb Work Phone: [facility] Comment on above: Tendonitis, Achilles , right (Primary Dx) Start: 01-06-2020 End: 01-06-2020 ambulatory THIAGOSERG ROSARIO [facility] Amb[facility] Start: 01-06-2020 End: 01-06-2020 Office outpatient new 30 minutes Thiago Rosario Work Phone: [facility] Comment on above: Moderate right ankle sprain, initial encounter (Primary Dx) Start: 12-21-2019 End: 12-25-2019 Patient encounter procedure WILLIAM STRONG [facility] Start: 12-21-2019 End: 12-21-2019 Office outpatient new 20 minutes William Strong Work Phone: [facility] Comment on above: Injury, ankle, right , initial encounter (Primary Dx); Acute right ankle pain; Sprain of right ankle, unspecified ligament, initial encounter Procedures Date Procedure Procedure Detail Performing Clinician Start: 06-23-2024 INFLUENZA A&B MOLECU LAR (POC) Jeni Naranjo APRN.CNP Work Phone: Start: 03-10-2024 Antibody screen VIKKI SANDOVAL Comment on above: Order Comment: Speci men Type: BLOOD SPECIMENOrdering Facility: [facility] Address: [address] [place] [address] Performed By: #### T SCR ####CC MAIN BLOOD BANKCLIA [id number] [facility] [id number], [place] [address] [place] Start: 01-03-2024 Us pelvic nonobstetr ic real-time image complete John Rebel ABDI.[employer] Work Phone: Start: 11-28-2023 UA DIP,URINE HCG (POC) John Rebel ABDI.[employer] Work Phone: Start: 10-31-2023 Cardiovascular funct ion eval w/tilt table w/mntr Javier Riojas APRN.[employer] Work Phone: Start: 10-31-2023 Cardiovascular funct ion eval w/tilt table w/mntr Provider [facility] Start: 08-26-2023 [employer] COVI D-19 VACCINE (2022- SEASON) AGE 12+ YR Javier Riojas APRN.[employer] EX[employer] Work Phone: Start: 08-26-2023 Adult depression scr eening assessment John Luque APRN.[employer] Work Phone: Start: 11-20-2021 End: 11-20-2021 Release Blood Product-Packed Red Blood Cells Isael Bermudez Start: 11-20-2021 Antibody screen Mrs. Alex Valverde Comment on above: Performed By: #### M ORP2 #### [place] [address] Start: 11-20-2021 End: 11-20-2021 EKG impression Isael Bermudez Start: 11-20-2021 Release Blood Product-Packed Red Blood Cells Isael Bermudez Start: 09-28-2020 Radiologic examinati on foot 2 views Alvaro Lamb DPM Work Phone: Start: 09-28-2020 End: 09-28-2020 EXCISION SHERRY'S DEFORMITY Alvaro Lamb DPM Work Phone: Start: 09-28-2020 Urine test visual color cmprsn meths Alvaro Lamb DPM Work Phone: Start: 09-14-2020 Basic metabolic pane l calcium total Mildred Wagner [employer] Work Phone: Start: 09-14-2020 Red blood cell morphology Mildred Wagner [employer] Work Phone: Start: 12-21-2019 X-ray of right ankle Pa edwin Strong Work Phone: Extraction of wisdom tooth N o PCP None Comment on above: 2011; Insertion of uretera l stent with ureterotomy Trenton Valverde Work Phone: Laboratory test resu lt abnormal Abnormal laboratory test Javier Jorge 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 Work Phone: Laboratory test resu lt abnormal Abnormal laboratory test Joe Jean MD Work Phone: Laboratory test resu lt abnormal Abnormal laboratory test Jolene Berry MD Work Phone: Laboratory test resu lt abnormal Abnormal laboratory test Sridevi Ramirez DO Work Phone: Lithotripsy Trenton Valverde Work Phone: Comment on above: 2021; Operative procedure on ankle Trenton Valverde Work Phone: Comment on above: 2019; Plan of Treatment Date Care Activity Detail Author Start: 05-13-2031 Urine microalbumin profile DTaP,Tdap,Td Vaccine (2 - Td or Tdap) [facility] Start: 11-11-2029 Screening for malignant neoplasm of cervix Cervical Cancer Screening [facility] Start: 11-03-2026 Screening for malignant neoplasm of cervix Cervical Cancer Screening [facility] Start: 11-15-2025 End: 11-15-2025 Patient encounter procedure OB/Gynecology Comment on above: Annual Start: 08-11-2025 Screening for malignant neoplasm of cervix [facility] Start: 05-10-2025 9vhpv vacc 2/3 dose sched im use HPV VACCINE, 9-VALENT (GARDASIL 9) Immunization/Injection Routine Need for prophylactic vaccination/inoculation against viral disease Expected: 05/10/2025 (Approximate) [facility] Comment on above: Expected: 05/10/2025 (Approximate) Start: 02-08-2025 End: 02-08-2025 Patient encounter procedure 02/08/2025 9:50 AM EDT Office Visit OB/Gynecology [address] [place] [address] Vikki Epstein MD [address] [place] [address] weight management follow up OB/Gynecology Comment on above: weight management follow up Start: 02-02-2025 End: 02-02-2025 ambulatory [facility] Comment on above: Q3MO B12/CBC/IRON STUDIES 6MO OV/EARLY LABS* r /s from 02/01 Start: 02-01-2025 End: 02-01-2025 ambulatory [facility] Comment on above: Q3MO B12/CBC/IRON STUDIES 6MO OV/LABS 10/30/EAR LY LABS* Start: 01-11-2025 Influenza vaccination [facility] Start: 01-10-2025 9vhpv vacc 2/3 dose sched im use HPV VACCINE, 9-VALENT (GARDASIL 9) Immunization/Injection Routine Need for prophylactic vaccination/inoculation against viral disease Expected: 01/10/2025 (Approximate) [facility] Comment on above: Expected: 01/10/2025 (Approximate) Start: 12-09-2024 HPV Vaccine (2 - 3-dose SCDM series) HPV Vaccine (2 - 3-dose SCDM series) [facility] Start: 11-17-2024 End: 11-17-2024 Patient encounter procedure 11/17/2024 11:40 AM EDT Office Visit OB/Gynecology [address] [place] [address] Vikki Epstein MD [address] [place] [address] weight management follow up OB/Gynecology Comment on above: weight management follow up Start: 11-11-2024 End: 11-11-2024 Patient encounter procedure 11/11/2024 4:00 PM EDT Office Visit OB/Gynecology [address] [place] [address] John Luque APRN.[employer] [address] [place] [address] Annual OB/Gynecology Comment on above: Annual Start: 11-04-2024 End: 11-04-2024 Patient encounter procedure 11/04/2024 10:15 AM EDT Office Visit OB/Gynecology [address] [place] [address] John Luque APRN.[employer] EXEC[employer]URITY [address] [place] [address] (Fax) Annual OB/Gynecology Comment on above: Annual Start: 10-30-2024 End: 10-30-2024 ambulatory 10/30/2024 10:00 AM EDT Results Only [place] Garcian [facility] [address] [place] [address] Q3MO B12/CBC/IRON STUDIES [place] [facility] Comment on above: Q3MO B12/CBC/IRON STUDIES Start: 10-26-2024 End: 10-26-2024 Patient encounter procedure 10/26/2024 4:00 PM EDT Office Visit Gastroenterology [address] [address] Eric Love MD [address] [place] [address] Iron deficiency anemia, unspecified iron deficiency anemia type [D50.9] Gastroenterology Comment on above: Iron deficiency anemia, unspecified iron deficiency anemia type [D50.9] Start: 10-21-2024 Annual PCP Team Chronic Disease Visit Annual PCP Team Chronic Disease Visit [facility] Start: 09-22-2024 Annual PCP Team Chronic Disease Visit Annual PCP Team Chronic Disease Visit [facility] Start: 09-03-2024 End: 09-03-2024 Patient encounter procedure Neurology Comment on above: 2 month follow up DAVINA Josy [place] , 2 month follow up Start: 08-31-2024 End: 08-31-2024 Patient encounter procedure 08/31/2024 2:30 PM EDT Office Visit OB/Gynecology [address] [place] [address] Vikki Epstein MD [address] [place] [address] weight management follow up OB/Gynecology Comment on above: weight management follow up Start: 08-25-2024 Annual PCP Team Chronic Disease Visit Annual PCP Team Chronic Disease Visit [facility] Start: 08-25-2024 Anxiety Screening Anxiety Screening [facility] Start: 08-25-2024 Depression Screening Depression Screening [facility] Start: 08-25-2024 Hepatitis C screening Hepatitis C Screening [facility] Comment on above: Postponed from 2012 (Declined at t his time) Start: 08-25-2024 HIV screening HIV Screening [facility] Comment on above: Postponed from 2012 (Declined at t his time) Start: 08-11-2024 End: 08-11-2024 Patient encounter procedure 08/11/2024 8:50 AM EDT Office Visit OB/Gynecology [address] [place] [address] Vikki Epstein MD [address] [place] [address] weight management follow up OB/Gynecology Comment on above: weight management follow up Start: 07-31-2024 End: 07-31-2024 ambulatory 07/31/2024 9:30 AM EDT Visit (SP) Office Hematology/Oncology [address] [place] [address] William Macedo [address] [place] [address] 6WK OV/LABS 07/24* Hematology/Oncology Comment on above: 6WK OV/LABS 07/24* Start: 07-24-2024 End: 10-23-2024 Cobalamin (Vitamin B12) [Mass/volume] in Serum or Plasma [facility] Comment on above: Expected: 07/24/2024, Expires: Start: 07-24-2024 End: 10-23-2024 Ferritin [Mass/volume] in Serum or Plasma [facility] Comment on above: Expected: 07/24/2024, Expires: Start: 07-24-2024 End: 10-23-2024 Iron and Iron binding capacity panel - Serum or Plasma [facility] Work Phone: Comment on above: Expected: 07/24/2024, Expires: Start: 07-24-2024 End: 10-23-2024 Methylmalonate [Moles/volume] in Serum or Plasma [facility] Comment on above: Expected: 07/24/2024, Expires: Start: 07-24-2024 End: 07-24-2024 ambulatory 07/24/2024 10:30 AM EDT Results Only [place] [facility] [address] [place] [address] CBC/Iron studies/B12 [facility] Comment on above: CBC/Iron studies/B12 Start: 07-06-2024 End: 07-06-2024 Patient encounter procedure Neurology Comment on above: Malaise and fatigue [R53.81, R53.83]; Cl ass 3 severe obesity with body mass index (BMI) of 50.0 to 59.9 in adult, unspecified obesity type, unspecified whether serious comorbidity present (HCC) [E66.813, E66.01, Z68.43]; Elevated blood pressure reading without diagnosis of hypertension [R03.0] Malaise and fatigue [R53.81, R53.83]; No PAP, HSAT. Start: 06-30-2024 End: 09-29-2024 25-hydroxyvitamin D3 [Mass/volume] in Serum or Plasma [facility] Work Phone: Comment on above: Expected: 06/30/2024, Expires: Start: 06-30-2024 End: 06-30-2024 Patient encounter procedure 06/30/2024 9:20 AM EST Office Visit OB/Gynecology [address] [place] [address] Vikki Epstein MD [address] [place] [address] weight management f/u OB/Gynecology Comment on above: weight management f/u Start: 06-19-2024 End: 06-19-2024 ambulatory 06/19/2024 2:30 PM EST Infusion Center Hematology/Oncology [address] [place] [address] 2ND FLOOR Hematology/Oncology Comment on above: 2ND FLOOR Start: 06-17-2024 End: 06-17-2024 ambulatory 06/17/2024 3:30 PM EST Infusion Center Hematology/Oncology [address] [place] [address] 2ND FLOOR Hematology/Oncology Comment on above: 2ND FLOOR Start: 06-17-2024 End: 06-17-2024 Patient encounter procedure 06/17/2024 9:20 AM EST Office Visit OB/Gynecology [address] [place] [address] Jolene Berry MD [address] [place] [address] 3mth ocp follow up OB/Gynecology Comment on above: 3mth ocp follow up Start: 06-15-2024 End: 06-15-2024 ambulatory 06/15/2024 8:00 AM EST Infusion Center Hematology/Oncology [address] [place] [address] 2ND FLOOR Hematology/Oncology Comment on above: 2ND FLOOR Start: 06-12-2024 End: 06-12-2024 ambulatory 06/12/2024 9:30 AM EST Infusion Center Hematology/Oncology [address] [place] [address] 2ND FLOOR Hematology/Oncology Comment on above: 2ND FLOOR Start: 06-10-2024 End: 06-10-2024 ambulatory 06/10/2024 3:00 PM EST Infusion Center Hematology/Oncology [address] [place] [address] 2ND FLOOR Hematology/Oncology Comment on above: 2ND FLOOR Start: 06-08-2024 End: 06-08-2024 Nutrition therapy 06/08/2024 1:45 PM EST Education Nutrition Therapy [address] [place] [address] Loan Celeste, YONG [address] [place] [address] Insulin resistance [E88.819]; Vitamin D deficiency [E55.9]; Hypertriglyceridemia [E78.1]; Class 3 severe obesity with body mass index (BMI) of 50.0 to 59.9 in adult, unspecified obesity type, unspecified whether serious comorbidity present (HCC) [E66.813, E66.01, Z68.43]; Elevated blood pressure reading without diagnosis of hypertension [R03.0] Nutrition Therapy Comment on above: Insulin resistance [E88.819]; Vitamin D deficiency [E55.9]; Hypertriglyceridemia [E78.1]; Class 3 severe obesity with body mass index (BMI) of 50.0 to 59.9 in adult, unspecified obesity type, unspecified whether serious comorbidity present (HCC) [E66.813, E66.01, Z68.43]; Elevated blood pressure reading without diagnosis of hypertension [R03.0] Start: 06-03-2024 End: 06-03-2024 ambulatory 06/03/2024 8:50 AM EST Visit (SP) Office Hematology/Oncology [address] [place], [place] [id number] Sridevi Ramirez DO [address] [place], [place] [id number] OV/LAB 05/11* Hematology/Oncology Comment on above: OV/LAB 05/11* Start: 05-26-2024 End: 05-26-2024 Patient encounter procedure 05/26/2024 10:00 AM EST Office Visit Neurology [address] [place] [address] Malaise and fatigue [R53.81, R53.83]; Class 3 severe obesity with body mass index (BMI) of 50.0 to 59.9 in adult, unspecified obesity type, unspecified whether serious comorbidity present (HCC) [E66.813, E66.01, Z68.43]; Elevated blood pressure reading without diagnosis of hypertension [R03.0] Neurology Comment on above: Malaise and fatigue [R53.81, R53.83]; Cl ass 3 severe obesity with body mass index (BMI) of 50.0 to 59.9 in adult, unspecified obesity type, unspecified whether serious comorbidity present (HCC) [E66.813, E66.01, Z68.43]; Elevated blood pressure reading without diagnosis of hypertension [R03.0] Start: 05-20-2024 End: 05-20-2024 Patient encounter procedure 05/20/2024 8:10 AM EST Office Visit OB/Gynecology [address] [place], [place] [id number] Vikki Epstein MD [address] [place] [address] weight management f/u OB/Gynecology Comment on above: weight management f/u Start: 05-18-2024 End: 05-18-2024 ambulatory [place] [facility] Laboratory Comment on above: lab CBC/IRON STUDIES/OV* OV/LAB 05/11* Start: 05-11-2024 End: 08-10-2024 CBC W Auto Differential panel - Blood COMPLETE BLOOD COUNT AND DIFFERENTIAL Lab STAT Iron deficiency anemia due to chronic blood loss Other vitamin B12 deficiency anemia Menorrhagia with irregular cycle Expected: 05/11/2024, Expires: 08/10/2024 [facility] Work Phone: Comment on above: Expected: 05/11/2024, Expires: Start: 05-11-2024 End: 08-10-2024 Ferritin [Mass/volume] in Serum or Plasma FERRITIN Lab Routine Iron deficiency anemia due to chronic blood loss Other vitamin B12 deficiency anemia Menorrhagia with irregular cycle Expected: 05/11/2024, Expires: 08/10/2024 [facility] Comment on above: Expected: 05/11/2024, Expires: Start: 05-11-2024 End: 08-10-2024 Iron and Iron binding capacity panel - Serum or Plasma IRON AND TIBC Lab Routine Iron deficiency anemia due to chronic blood loss Other vitamin B12 deficiency anemia Menorrhagia with irregular cycle Expected: 05/11/2024, Expires: 08/10/2024 [facility] Comment on above: Expected: 05/11/2024, Expires: Start: 05-11-2024 End: 05-11-2024 ambulatory 05/11/2024 10:30 AM EST Results Only [place] Candelaria [facility] Laboratory [address] [place] [address] CBC/IRON STUDIES [place] [facility] Comment on above: CBC/IRON STUDIES Start: 04-10-2024 End: 04-10-2024 Patient encounter procedure 04/10/2024 2:00 PM EST Office Visit OB/Gynecology [address] [place] [address] Vikki Epstein MD [address] [place] [address] weight management f/u OB/Gynecology Comment on above: weight management f/u Start: 03-31-2024 End: 03-31-2024 ambulatory 03/31/2024 8:30 AM EST Visit (SP) Office Hematology/Oncology [address] [place] [address] Sridevi Ramirez DO [address] [place] [address] 5 WK OV/LABS 03/10 Hematology/Oncology Comment on above: 5 WK OV/LABS 03/10 Start: 03-17-2024 End: 03-17-2024 Patient encounter procedure 03/17/2024 11:10 AM EST Office Visit OB/Gynecology [address] [place] [address] Jolene Berry MD [address] [place] [address] Consult for Hysterectomy OB/Gynecology Comment on above: Consult for Hysterectomy Start: 03-10-2024 End: 03-10-2024 ambulatory 03/10/2024 8:15 AM EDT Results Only [place] Candel[place] [facility] [address] [place] [address] Shank Threader scheduled #[id number] [place] [facility] Laboratory Comment on above: Shank Threader scheduled #[id number] Start: 03-02-2024 End: 06-01-2024 25-hydroxyvitamin D3 [Mass/volume] in Serum or Plasma [facility] Work Phone: Comment on above: Expected: 03/02/2024, Expires: Start: 03-02-2024 End: 06-01-2024 Hemoglobin A1c in Blood [facility] Comment on above: Expected: 03/02/2024, Expires: Start: 03-02-2024 End: 06-01-2024 Lipid 1996 panel - Serum or Plasma [facility] Comment on above: Expected: 03/02/2024, Expires: Start: 03-02-2024 End: 03-02-2024 Patient encounter procedure 03/02/2024 10:20 AM EDT Office Visit OB/Gynecology [address] [place] [address] Vikki Epstein MD [address] [place] [address] 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: 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 Start: 02-26-2024 End: 02-26-2024 Patient encounter procedure 02/26/2024 8:50 AM EDT Office Visit OB/Gynecology [address] [place] [address] Itz Burris MD [address] [place] [address] f/up OB/Gynecology Comment on above: f/up Start: 02-25-2024 End: 02-25-2024 ambulatory 02/25/2024 2:00 PM EDT Visit (SP) Office Hematology/Oncology [address] [place] [address] Sridevi Ramirez DO [address] [place] [address] 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 TEST/REFERRING PROV DR BERRY* first avail Hematology/Oncology Comment on above: 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 TEST/REFERRING PROV DR Christianne JAEGER* first avail Start: 02-25-2024 End: 05-26-2024 CBC W Auto Differential panel - Blood COMPLETE BLOOD COUNT AND DIFFERENTIAL Lab STAT Iron deficiency anemia due to chronic blood loss Menorrhagia with irregular cycle Expected: 02/25/2024, Expires: 05/26/2024 [facility] Comment on above: Expected: 02/25/2024, Expires: Start: 02-25-2024 End: 05-26-2024 Cobalamin (Vitamin B12) [Mass/volume] in Serum or Plasma VITAMIN B12 Lab Routine Other vitamin B12 deficiency anemia Expected: 02/25/2024, Expires: 05/26/2024 [facility] Comment on above: Expected: 02/25/2024, Expires: Start: 02-25-2024 End: 05-26-2024 Ferritin [Mass/volume] in Serum or Plasma FERRITIN Lab Routine Iron deficiency anemia due to chronic blood loss Menorrhagia with irregular cycle Expected: 02/25/2024, Expires: 05/26/2024 [facility] Comment on above: Expected: 02/25/2024, Expires: Start: 02-25-2024 End: 05-26-2024 Iron and Iron binding capacity panel - Serum or Plasma IRON AND TIBC Lab Routine Iron deficiency anemia due to chronic blood loss Menorrhagia with irregular cycle Expected: 02/25/2024, Expires: 05/26/2024 [facility] Comment on above: Expected: 02/25/2024, Expires: Start: 02-25-2024 End: 05-26-2024 TYPE + SCREEN TYPE + SCREEN Blood Bank Routine Iron deficiency anemia due to chronic blood loss Menorrhagia with irregular cycle Expected: 02/25/2024, Expires: 05/26/2024 [facility] Work Phone: Comment on above: Expected: 02/25/2024, Expires: 5 Start: 02-25-2024 End: 05-26-2024 VON WILLEBRAND DX PANEL VON WILLEBRAND DX PANEL Lab Routine Iron deficiency anemia due to chronic blood loss Menorrhagia with irregular cycle Expected: 02/25/2024, Expires: 05/26/2024 [facility] Comment on above: Expected: 02/25/2024, Expires: Start: 02-21-2024 End: 02-21-2024 Patient encounter procedure 02/21/2024 11:30 AM EDT Office Visit OB/Gynecology [address] [place], [place] [id number] Jolene Berry MD [address] [place] [place] [address] 2-3 mo follow up OB/Gynecology Comment on above: 2-3 mo follow up Start: 02-19-2024 End: 02-19-2024 Patient encounter procedure 02/19/2024 8:50 AM EDT Office Visit OB/Gynecology [address] [place] [address] Itz Burris MD [address] [place] [address] Pain and bleeding OB/Gynecology Comment on above: Pain and bleeding Start: 01-14-2024 End: 04-14-2024 VON WILLEBRAND DX PNL (LIMITED) VON WILLEBRAND DX PNL (LIMITED) Lab Routine Abnormal uterine bleeding Iron deficiency Expected: 01/14/2024, Expires: 04/14/2024 [facility] Work Phone: Comment on above: Expected: 01/14/2024, Expires: Start: 01-12-2024 Covid-19 Vaccine () Covid-19 Vaccine () [facility] Start: 01-12-2024 Influenza vaccination [facility] Start: 01-03-2024 End: 01-03-2024 Manual pelvic examination 01/03/2024 9:00 AM EDT Procedure OB/Gynecology [address] [place] [address] Pelvic pain in female [R10.2 OB/Gynecology Comment on above: Pelvic pain in female [R10.2 Start: 01-02-2024 End: 04-02-2024 Iron and Iron binding capacity panel - Serum or Plasma [facility] Comment on above: Expected: 01/02/2024, Expires: 4 Start: 01-02-2024 End: 01-01-2025 US Pelvis PELVIC US WHI Anc Imaging Routine Pelvic pain in female Expected: 01/02/2024, Expires: 01/01/2025 [facility] Work Phone: Comment on above: Expected: 01/02/2024, Expires: 5 Start: 01-02-2024 End: 01-02-2024 Patient encounter procedure 01/02/2024 7:15 AM EDT Office Visit OB/Gynecology [address] [place] [address] John Luque APRN.[employer] [address] [place] [address] Cramping OB/Gynecology Comment on above: Cramping Start: 12-30-2023 End: 12-30-2023 Patient encounter procedure 12/30/2023 2:20 PM EDT Office [place] [address] Apply for EC [facility] Comment on above: Apply for EC Start: 12-11-2023 End: 03-11-2024 Ferritin [Mass/volume] in Serum or Plasma [facility] Comment on above: Expected: 12/11/2023, Expires: 4 Start: 12-11-2023 End: 03-11-2024 Iron and Iron binding capacity panel - Serum or Plasma [facility] Work Phone: Comment on above: Expected: 12/11/2023, Expires: Start: 12-05-2023 End: 03-05-2024 VON WILLEBRAND DX PNL (LIMITED) [facility] Work Phone: Comment on above: Expected: 12/05/2023, Expires: Start: 12-05-2023 End: 12-05-2023 Patient encounter procedure 12/05/2023 10:20 AM EDT Office Visit OB/Gynecology [address] [place], [place] [id number] Jolene Berry MD [address] [place], [place] [id number] surgery 12/19 [facility] OB/Gynecology Comment on above: surgery 12/19 [facility] Start: 11-28-2023 End: 02-27-2024 Ferritin [Mass/volume] in Serum or Plasma [facility] Comment on above: Expected: 11/28/2023, Expires: Start: 11-28-2023 End: 02-27-2024 Iron and Iron binding capacity panel - Serum or Plasma [facility] Comment on above: Expected: 11/28/2023, Expires: Start: 11-28-2023 End: 11-28-2023 Patient encounter procedure 11/28/2023 11:45 AM EDT Office Visit OB/Gynecology [address] [place], [place] [id number] John Luque, JIN.[employer] [address] [place] [place] [address] EMB OB/Gynecology Comment on above: EMB Start: 11-22-2023 End: 11-22-2023 Patient encounter procedure 11/22/2023 2:30 PM EDT Office Visit Rheumatology [address] [address] Joe Jean MD [address] [id number] CONSULT TO RHEUM/IMMUN DISEASE Rheumatology Comment on above: CONSULT TO RHEUM/IMMUN DISEASE Start: 11-22-2023 End: 02-21-2024 Aldolase [Enzymatic activity/volume] in Serum or Plasma ALDOLASE BLD Lab Routine Weakness Expected: 11/22/2023, Expires: 02/21/2024 [facility] Comment on above: Expected: 11/22/2023, Expires: Start: 11-22-2023 End: 02-21-2024 Creatine kinase [Enzymatic activity/volume] in Serum or Plasma CREATINE KINASE/CK Lab Routine Weakness Expected: 11/22/2023, Expires: 02/21/2024 [facility] Work Phone: Comment on above: Expected: 11/22/2023, Expires: Start: 11-13-2023 End: 11-13-2023 Patient encounter procedure 11/13/2023 3:00 PM EDT Office Visit OB/Gynecology [address] [place] [address] John Luque APRN.[employer] [address] [place] [address] follow up labs and us OB/Gynecology Comment on above: follow up labs and us Start: 11-13-2023 End: 02-12-2024 Choriogonadotropin.beta subunit [Units/volume] in Serum or Plasma [facility] Comment on above: Expected: 11/13/2023, Expires: Start: 11-13-2023 End: 02-12-2024 Estradiol (E2) [Mass/volume] in Serum or Plasma [facility] Comment on above: Expected: 11/13/2023, Expires: Start: 11-13-2023 End: 02-12-2024 Follitropin [Units/volume] in Serum or Plasma [facility] Work Phone: Comment on above: Expected: 11/13/2023, Expires: Start: 11-12-2023 End: 11-12-2023 Patient encounter procedure 11/12/2023 8:30 AM EDT Appointment Radiology [address] [place] [address] Abnormal uterine bleeding [N93.9] Radiology Comment on above: Abnormal uterine bleeding [N93.9] Start: 11-07-2023 End: 11-07-2023 Patient encounter procedure 11/07/2023 2:40 PM EDT Office Visit Cardiology [address] [place] [address] Dizziness [R42]; Fatigue, unspecified type [R53.83] Cardiology Comment on above: Dizziness [R42]; Fatigue, unspecified ty pe [R53.83] Start: 11-04-2023 End: 02-03-2024 17-Hydroxyprogesterone [Mass/volume] in Serum or Plasma [facility] Comment on above: Expected: 11/04/2023, Expires: Start: 11-04-2023 End: 02-03-2024 DHEA-S BLD [facility] Comment on above: Expected: 11/04/2023, Expires: Start: 11-04-2023 End: 02-03-2024 TESTOSTERONE, FREE AND TOTAL [facility] Comment on above: Expected: 11/04/2023, Expires: Start: 11-04-2023 End: 02-03-2024 Thyrotropin [Units/volume] in Serum or Plasma [facility] Comment on above: Expected: 11/04/2023, Expires: Start: 11-04-2023 End: 02-03-2024 Thyroxine (T4) free [Mass/volume] in Serum or Plasma [facility] Comment on above: Expected: 11/04/2023, Expires: Start: 11-04-2023 End: 11-04-2023 Patient encounter procedure 11/04/2023 7:45 AM EDT Office Visit OB/Gynecology [address] [place] [address] John Luque, JIN.[employer] [address] [place] [address] Establish Care OB/Gynecology Comment on above: Establish Care Start: 10-31-2023 Subsequent hospital visit by physician 10/31/2023 8:00 AM EDT Hospital Encounter Cardiology Lab [address] [place] [address] Cardiology Lab Start: 10-22-2023 End: 10-22-2023 Patient encounter procedure 10/22/2023 3:40 PM EDT Office Visit [facility] [address] [place] [address] Javier Riojas, 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 [address] [place] [id number] 4 wk follow up [facility] A[facility]udy Comment on above: 4 wk follow up Start: 10-09-2023 End: 10-09-2023 Patient encounter procedure Radiology Comment on above: Lump of scalp [R22.0] Abnormal laboratory test [R89.9] Start: 09-23-2023 End: 09-23-2023 Patient encounter procedure 09/23/2023 4:20 PM EDT Office Visit [facility] [address] [place], [place] [address] Javier Riojas, 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 [facility] [place], [place] [id number] 4 week follow up [facility] Aneudy Comment on above: 4 week follow up Start: 09-23-2023 End: 12-23-2023 C reactive protein [Mass/volume] in Serum or Plasma [facility] Comment on above: Expected: 09/23/2023, Expires: 4 Start: 09-23-2023 End: 12-23-[address] [facility] Comment on above: Expected: 09/23/2023, Expires: 4 Start: 09-23-2023 End: 12-23-2023 Nuclear Ab [Presence] in Serum by Immunoassay [facility] Work Phone: Comment on above: Expected: 09/23/2023, Expires: Start: 09-23-2023 End: 12-23-2023 Rheumatoid factor [Units/volume] in Serum or Plasma [facility] Comment on above: Expected: 09/23/2023, Expires: Start: 08-26-2023 End: 11-25-2023 Comprehensive metabolic 2000 panel - Serum or Plasma [facility] Work Phone: Comment on above: Expected: 08/26/2023, Expires: Start: 08-26-2023 End: 11-25-2023 Ferritin [Mass/volume] in Serum or Plasma [facility] Work Phone: Comment on above: Expected: 08/26/2023, Expires: Start: 08-26-2023 End: 11-25-2023 Hemoglobin A1c in Blood [facility] Work Phone: Comment on above: Expected: 08/26/2023, Expires: Start: 08-26-2023 End: 11-25-2023 Iron and Iron binding capacity panel - Serum or Plasma [facility] Work Phone: Comment on above: Expected: 08/26/2023, Expires: Start: 08-26-2023 End: 11-25-2023 LIPID PANEL, NONFASTING [facility] Work Phone: Comment on above: Expected: 08/26/2023, Expires: Start: 08-26-2023 End: 11-25-2023 Thyrotropin [Units/volume] in Serum or Plasma [facility] Work Phone: Comment on above: Expected: 08/26/2023, Expires: Start: 08-26-2023 End: 11-25-2023 Thyroxine (T4) free [Mass/volume] in Serum or Plasma [facility] Work Phone: Comment on above: Expected: 08/26/2023, Expires: Start: 08-26-2023 End: 11-25-2023 Triiodothyronine (T3) [Mass/volume] in Serum or Plasma [facility] Work Phone: Comment on above: Expected: 08/26/2023, Expires: Start: 05-13-2023 Depression Assessment Depression Assessment [facility] Start: 01-11-2023 [facility] Start: 10-09-2022 EPV, Provider: Trenton Valverde, Status: Pen, Time: 2:30 PM EPV, Provider: Trenton Valverde, Status: Pen, Time: 2:30 PM [facility] Work Phone: Start: 04-09-2022 FUV, Provider: Trenton Valverde, Status: Pen, Time: 1:00 PM FUV, Provider: Trenton Valverde, Status: Pen, Time: 1:00 PM [facility] Work Phone: Start: 03-20-2022 EPV, Provider: Trenton Valverde, Status: Pen, Time: 2:30 PM EPV, Provider: Trenton Valverde, Status: Pen, Time: 2:30 PM [facility] Work Phone: Start: 02-26-2022 FUV, Provider: Cherry Webb, Status: Pen, Time: 11:00 AM FUV, Provider: Cherry Webb, Status: Pen, Time: 11:[address] Work Phone: Start: 12-18-2021 FUV, Provider: Trenton Valverde, Status: Pen, Time: 2:30 PM FUV, Provider: Trenton Valverde, Status: Pen, Time: 2:30 PM [facility] Work Phone: Start: 12-18-2021 Patient encounter procedure [facility] Start: 12-11-2021 FUV, Provider: Cherry Webb, Status: Pen, Time: 1:30 PM FUV, Provider: Cherry Webb, Status: Pen, Time: 1:30 PM [address] Work Phone: Start: 12-11-2021 Patient encounter [facility] Start: 11-21-2021 Patient encounter procedure Outpatient [facility] Start: 21-Nov-2021 10:15 Trenton Valverde Intent [facility] Start: 11-07-2021 BXENDO, Provider: Cherry Webb, Status: Pen, Time: 1:15 PM BXENDO, Provider: Cherry Webb, Status: Pen, Time: 1:15 PM [address] Work Phone: Start: 11-03-2021 EPV, Provider: Trenton Valverde, Status: Pen, Time: 2:30 PM EPV, Provider: Trenton Valverde, Status: Pen, Time: 2:30 PM [facility] Work Phone: Start: 10-16-2021 NPV, Provider: Cherry Webb, Status: Pen, Time: 1:30 PM NPV, Provider: Cherry Webb, Status: Pen, Time: 1:30 PM [facility] Work Phone: Start: 09-11-2021 NPV, Provider: Mayo Oropeza, Status: Pen, Time: 4:15 PM NPV, Provider: Mayo Oropeza, Status: Pen, Time: 4:15 PM [facility] Work Phone: Start: 09-11-2021 Patient encounter procedure [facility] Start: 09-01-2021 Patient encounter procedure Outpatient [facility] [address] Start: 01-Sep-2021 11:00 Mayo Oropeza Intent [facility] Preadmit Start: 08-26-2021 End: 08-27-2022 Ondansetron Injectable 4 mg IntraVenous Push Every 6 Hours PRN ; (ZOFRAN)DOSE = 4 mg IntraVenous Push Every 4 Hours, PRN Nausea and/or Vomiting Start: 26-Aug-2021 End: 26-Aug-2022 Ordered: 26-Aug-2021 Eder Aiken Intent [facility] Start: 08-25-2021 End: 08-26-2022 HYDROmorphone Injectable 1 mg IntraVenous Push Once STAT ; (DILAUDID)DOSE = 0.5 mg IntraVenous Push Every 5 Minutes, PRN Pain - Severe (7-10) (PACU)Clinician Notes: Justa-operative order ONLYMax total of 4 mg regardless of dose. Start: 25-Aug-2021 End: 25-Aug-2022 Ordered: 25-Aug-2021 Yosvany Guzmán Intent Comments: Justa-operative order ONLYMax total of 4 mg regardless of dose. [facility] Comment on above: Justa-operative order ONLYMax total of 4 mg regardless of dose. Start: 08-25-2021 End: 08-26-2022 [facility] Start: 01-11-2021 Influenza vaccination [facility] Start: 01-05-2021 End: 01-05-2021 Patient encounter procedure 01/05/2021 Office Visit Podiatry Alvaro Lamb DPM [address] [place] [address] [phone] [facility] Start: 09-28-2020 End: 09-28-2020 Admission to same day surgery center 09/28/2020 Surgery Alvaro Lamb DPM [address] [place] [address] [phone] EXCISION SHERRY'S /RETRO CALCANEAL SPUR RIGHT HEEL C-ARM POWER OSTEOTOMES BK CAST FIBERTAK ANCHORS 1.6 [facility] Comment on above: EXCISION SHERRY'S /RETRO CALCANEAL SPUR RIGHT HEEL C-ARM POWER OSTEOTOMES BK CAST FIBERTAK ANCHORS 1.6 Start: 09-28-2020 End: 09-28-2020 Anesthesia consultation 09/28/2020 Anesthesia Event Mildred Wagner, [employer] [address] [place] [address] [phone] [facility] Start: 09-28-2020 Subsequent hospital visit by physician 09/28/2020 Hospital Encounter Alvaro Lamb, ABAD [address] [place] [address] [phone] [facility] Start: 09-24-2020 End: 09-24-2020 Patient encounter procedure 09/24/2020 Office Visit Lab Alvaro Lamb, ABAD [address] [place] [address] [phone] [facility] Start: 09-14-2020 COVID-19 Vaccine (2 - Moderna 2-dose series) COVID-19 Vaccine (2 - Moderna 2-dose series) [facility] Start: 08-29-2020 End: 08-29-2020 Evaluation 08/29/2020 Evaluation Rehabilitation Alvaro Lamb, ABAD [address] [place] [address] [phone] Markos Vidal, PT [facility] Start: 02-03-2020 End: 02-03-2020 Office Visit 02/03/2020 Office Visit Orthopedic Surgery Thiago Rosario, [employer] [address] [place] [address] [phone] [facility] Start: 01-12-2020 Influenza vaccination given Sequential Influenza Vaccine (#1) [facility] Start: 08-10-2015 Screening for malignant neoplasm of cervix Pap Testing [facility] Start: 2013 Urine microalbumin profile DTaP,Tdap,Td Vaccine (1 - Tdap) [facility] Start: 2012 Hepatitis C antibody, confirmatory test Hepatitis C Screening [facility] Start: 2012 Hepatitis C screening Hepatitis C Screening [facility] Start: 2012 HIV screening HIV Screening [facility] Start: 2010 COVID-19 Vaccine (1) COVID-19 Vaccine (1) [facility] Start: 2009 HIV screening HIV Screening [facility] Start: 2006 Adolescent depression screening assessment Depression Screening (PHQ9) [facility] Start: 03-30-2007 Depression screening using PHQ-9 (Patient Health Questionnaire 9) score Depression Screening (PHQ9) [facility] Start: 2005 Vaccination for human papillomavirus HPV Vaccines (1 - 2-dose series) [facility] Start: 1997 History and physical examination, annual for health maintenance Wellness Visit [facility] Start: 02-09-1995 Covid-19 Vaccine (#1) Covid-19 Vaccine (#1) [facility] Start: 1994 Hepatitis B Vaccine (1 of 3 - 3-dose series) Hepatitis B Vaccine (1 of 3 - 3-dose series) [facility] Start: 1994 Screening for malignant neoplasm of cervix Pap Smear [facility] Start: 1994 Tetanus vaccination Tetanus: Every 10yrs [facility] 12 lead ECG ECG 12 Lead ECG Routine Pre-op examination Ordered: 09/14/2020 [facility] Comment on above: Ordered: 09/14/2020 Bacteria identified in Urine by Culture URINE CULTURE Microbiology Routine Pelvic pain in female 11/13/2023 3:23 PM EDT [facility] Bacteria identified in Urine by Culture URINE CULTURE Microbiology Routine Pelvic pain in female Ordered: 12/04/2023 [facility] Work Phone: Comment on above: Ordered: 12/04/2023 Bacteria identified in Urine by Culture URINE CULTURE Microbiology Routine Pelvic pain in female Ordered: 01/02/2024 [facility] Comment on above: Ordered: 01/02/2024 BACTERIAL VAGINOSIS NAAT BACTERI AL VAGINOSIS NAAT Lab Routine Abnormal uterine bleeding Ordered: 11/04/2023 [facility] Comment on above: Ordered: 11/04/2023 BACTERIAL VAGINOSIS NAAT BACTERI AL VAGINOSIS NAAT Lab Routine Pelvic pain in female Ordered: 01/02/2024 [facility] Comment on above: Ordered: 01/02/2024 LUIS/TRICHOMONAS NAAT LUIS /TRICHOMONAS NAAT Lab Routine Abnormal uterine bleeding Ordered: 11/04/2023 [facility] Comment on above: Ordered: 11/04/2023 LUIS/TRICHOMONAS NAAT LUIS /TRICHOMONAS NAAT Lab Routine Pelvic pain in female Ordered: 01/02/2024 [facility] Comment on above: Ordered: 01/02/2024 Cardiovascular funct ion eval w/tilt table w/mntr TILT TABLE EVALUATION Cardiology Routine Dizziness Tachycardia Ordered: 10/22/2023 [facility] Comment on above: Ordered: 10/22/2023 End: 07-31-2025 CBC W Auto Differential panel - Blood COMPLETE BLOOD COUNT AND DIFFERENTIAL Lab STAT Iron deficiency anemia, unspecified iron deficiency anemia type Generalized abdominal pain Every 3 months for 4 Occurrences starting 07/31/2024 until 07/31/2025 [facility] Work Phone: Comment on above: Every 3 months for 4 Occurrences startin g 07/31/2024 until 07/31/2025 Chlamydia trachomatis+Neisseria gonorrhoeae DNA [Presence] in Unspecified specimen by ELEUTERIO with probe detection GONORRHEA/CHLAMYDIA NAAT Lab Routine Abnormal uterine bleeding Ordered: 11/04/2023 [facility] Comment on above: Ordered: 11/04/2023 End: 07-31-2025 Cobalamin (Vitamin B12) [Mass/volume] in Serum or Plasma VITAMIN B12 Lab Routine Iron deficiency anemia, unspecified iron deficiency anemia type Every 3 months for 3 Occurrences starting 07/31/2024 until 07/31/2025 [facility] Comment on above: Every 3 months for 3 Occurrences startin g 07/31/2024 until 07/31/2025 COVID & INFLUENZA A/ B & RSV PCR, ROUTINE COVID & INFLUENZA A/B & RSV PCR, ROUTINE Microbiology Routine Flu-like symptoms 06/23/2024 11:05 AM EST [facility] Work Phone: End: 09-16-2021 Covid-19/Influenza Order Algorithm : COVID-19 Lab Test Only (OP in UTM) Alvaro Lamb, PH: [phone] Covid-19/Influenza Order Algorithm : COVID-19 Lab Test Only (OP in UTM) Alvaro Lamb, PH: [phone] Microbiology Routine Contact with or exposure to viral disease 1 Occurrences starting 09/16/2020 until 09/16/2021 [facility] Comment on above: 1 Occurrences starting 09/16/2020 until 09/16/2021 End: 10-21-2024 Echocardiography ECHO Cardiology Routine Dizziness Fatigue, unspecified type 1 Occurrences starting 10/22/2023 until 10/21/2024 [facility] Work Phone: Comment on above: 1 Occurrences starting 10/22/2023 until 10/21/2024 Endometrial bx w/wo endocervix bx w/o dilat spx ENDOMETRIAL BIOPSY Procedures Routine Abnormal uterine bleeding Ordered: 11/13/2023 [facility] Comment on above: Ordered: 11/13/2023 Endometrial bx w/wo endocervix bx w/o dilat spx ENDOMETRIAL BIOPSY Procedures Routine Abnormal uterine bleeding (AUB) Ordered: 11/28/2023 [facility] Work Phone: Comment on above: Ordered: 11/28/2023 End: 07-31-2025 Ferritin [Mass/volume] in Serum or Plasma FERRITIN Lab Routine Iron deficiency anemia, unspecified iron deficiency anemia type Generalized abdominal pain Every 3 months for 4 Occurrences starting 07/31/2024 until 07/31/2025 [facility] Comment on above: Every 3 months for 4 Occurrences startin g 07/31/2024 until 07/31/2025 History of surgical procedure on mouth History of oral surgery [facility] History of tonsillectomy History of tonsillectomy and adenoidectomy [facility] End: 05-20-2025 HOME SLEEP APNEA TEST (HSAT) HOME SLEEP APNEA TEST (HSAT) Procedures Routine Malaise and fatigue Class 3 severe obesity with body mass index (BMI) of 50.0 to 59.9 in adult, unspecified obesity type, unspecified whether serious comorbidity present (HCC) Elevated blood pressure reading without diagnosis of hypertension 1 Occurrences starting 05/20/2024 until 05/20/2025 [facility] Work Phone: Comment on above: 1 Occurrences starting 05/20/2024 until 05/20/2025 End: 07-31-2025 Iron and Iron binding capacity panel - Serum or Plasma IRON AND TIBC Lab Routine Iron deficiency anemia, unspecified iron deficiency anemia type Generalized abdominal pain Every 3 months for 4 Occurrences starting 07/31/2024 until 07/31/2025 [facility] Comment on above: Every 3 months for 4 Occurrences startin g 07/31/2024 until 07/31/2025 OUTSIDE VENDOR CARDI AC OUTPATIENT EXTENDED RHYTHM RECORDING (WITHOUT TELEMETRY) OUTSIDE VENDOR CARDIAC OUTPATIENT EXTENDED RHYTHM RECORDING (WITHOUT TELEMETRY) Holter Routine Dizziness Fatigue, unspecified type Ordered: 10/22/2023 [facility] Comment on above: Ordered: 10/22/2023 PAP TEST PAP TEST Lab Rou davion Abnormal uterine bleeding Screening for cervical cancer Encounter for screening for human papillomavirus (HPV) Ordered: 11/04/2023 [facility] Comment on above: Ordered: 11/04/2023 PAP TEST PAP TEST Lab Varsha ricardo Encounter for gynecological examination (general) (routine) without abnormal findings Screening for cervical cancer Encounter for screening for human papillomavirus (HPV) Ordered: 11/11/2024 [facility] Work Phone: Comment on above: Ordered: 11/11/2024 Past history of procedure Status post cystoscopy with ureteral stent placement [facility] Past history of procedure [facility] Removal intrauterine device iud REMOVE INTRAUTERINE DEVICE Procedures Routine Encounter for IUD removal Ordered: 02/26/2024 [facility] Work Phone: Comment on above: Ordered: 02/26/2024 SURGICAL PATHOLOGY SURGICAL PATH OLOGY Lab Routine Abnormal uterine bleeding (AUB) 11/28/2023 12:03 PM EDT [facility] Therapeutic prophylactic/dx injection subq/im THER/PROPH/DIAG INJ, SC/IM Procedures Routine Need for prophylactic vaccination/inoculation against viral disease Ordered: 11/11/2024 [facility] Comment on above: Ordered: 11/11/2024 TILT TABLE TEST TILT TABLE TEST EPS Routine 10/31/2023 8:08 AM EDT [facility] Work Phone: TILT TABLE TEST TILT TABLE TEST EPS 10/31/2023 12:00 AM EDT [facility] End: 10-22-2024 US Head and neck soft tissue US HEAD/NECK SOFT TISSUE OTHER Radiology Routine Lump of scalp 1 Occurrences starting 09/23/2023 until 10/22/2024 [facility] Comment on above: 1 Occurrences starting 09/23/2023 until 10/22/2024 US Head and neck sof t tissue US HEAD/NECK SOFT TISSUE OTHER Radiology Routine Lump of scalp 10/09/2023 2:26 PM EDT [facility] Work Phone: End: 12-03-2024 US Pelvis transvaginal US FEMALE PELVIS TRANSVAG Radiology Routine Abnormal uterine bleeding 1 Occurrences starting 11/04/2023 until 12/03/2024 [facility] Work Phone: Comment on above: 1 Occurrences starting 11/04/2023 until 12/03/2024 US Pelvis transvaginal US FEMALE PELVIS TRANSVAG Radiology Routine Abnormal uterine bleeding 11/12/2023 9:20 AM EDT [facility] Work Phone: [facility] Immunizations Immunization Date Immunization Notes Care Provider Angel pandey 11-11-2024 Human Papillomavirus 9-valent vaccine John Luque 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 SECURITY Work Phone: [facility] 08-26-2023 COVID-19 vaccine, ag e 12+ yr, season ([employer]) Javier Riojas APRN.SOLUTIONS EXECUTIVE SECURITY Work Phone: [facility] 05-13-2021 tetanus toxoid, redu dell diphtheria toxoid, and acellular pertussis vaccine, adsorbed Javier Riojas APRN.SOLUTIONS EXECUTIVE SECURITY Work Phone: [facility] Work Phone: 08-17-2020 Moderna COVID-19 Vac cine 100 MCG/0.5ML Intramuscular Suspension Trenton Valverde Work Phone: [facility] Work Phone: Payers Date Payer Category Payer Self-pay 2023 [employer] BLUE CARD PPO OOS [id number] 2021 Unknown [id number] 2021 Unknown 2021 Unknown [id number] 2020 Private Health Insurance NICOLE HOWARD HMO/NTWK/OACCESS/OA+/POS [id number] 2020-Present [id number]. [id number] 2020 Private Health Insurance [id number] 2019 Unknown [facility] HMO/BAUMAN CE PLUS/KATIUSKA/KATIUSKA PLUS xxxxxxxxx 2019-Present xxxxxxxxx [id number] 2019 Unknown [id number] 2019 Unknown [facility] HMO/BAUMAN CE PLUS/KATIUSKA/KATIUSKA PLUS [id number] 2019-Present [id number] [id number]. 2.7.3.218975.315 1994 Unknown [id number] 2.840.1.664731.3.579. 2.903 1994 Unknown [id number] 2.16840.1.719090.3.579. 2.903 1994 Unknown [id number] 2.16840.1.324998.3.579. 2.900 1994 Unknown [id number] 2.16840.1.888378.3.579. 2.903 1994 Unknown [id number] 2.16840.1.485954.3.579. 2.903 1994 Unknown [id number] 2.16840.1.086033.3.579. 2.903 1994 Unknown [id number] 2.16840.1.730012.3.579. 2.902 1994 Unknown [id number] 2.16840.1.111037.3.579. 2.902 1994 Unknown [id number] 2.16840.1.623141.3.579. 2.903 1994 Unknown [id number] 2.16840.1.710001.3.579. 2.356 1994 Unknown [id number] 2.840.1.791396.3.579. 2.356 1994 Unknown [id number] 2.840.1.208268.3.579. 2.356 1994 Unknown [id number] 2.840.1.388940.3.579. 2. 1994 Unknown [id number] 2.840.1.696850.3.579. 2.356 1994 Unknown [id number] 2.0.1.935179.3.579. 2. 1994 Unknown [id number] 2.840.1.321825.3.579. 2.356 1994 Unknown [id number] 2.0.1.294677.3.579. 2. 1994 Unknown [id number] 2.840.1.194863.3.579. 2.356 1994 Unknown [id number] 2840.1.669442.3.579. 2. 1994 Unknown [id number] 2.840.1.260179.3.579. 2.356 1994 Unknown [id number] 2.840.1.387462.3.579. 2. 1994 Unknown [id number] 2.840.1.955288.3.579. 2.356 1994 Unknown [id number] 2.840.1.089714.3.579. 2. 1994 Unknown [id number] 2.16.840.1.628828.3.579. 2.1068 1994 Unknown [id number] 2.16.840.1.941119.3.579. 2.1068 1994 Unknown [id number] 2.16.840.1.739519.3.579. 2.1068 1994 Unknown [id number] 2.16.840.1.707838.3.579. 2.1068 1994 Unknown [id number] 2.16.840.1.277957.3.579. 2.1068 1994 Unknown [id number] 2.16.840.1.379510.3.579. 2.1068 1994 Unknown [id number] 2.16.840.1.375361.3.579. 2.1068 1994 Unknown [id number] 2.16.840.1.228381.3.579. 2.1068 1994 Unknown [id number] 2.16.840.1.628547.3.579. 2.1068 1994 Unknown [id number] 2.16.840.1.182625.3.579. 2.1068 1994 Unknown [id number] 2.16.840.1.527579.3.579. 2.1068 1994 Unknown [id number] 2.16840.1.143934.3.579. 2.1068 1994 Unknown [id number] 2.16.840.1.377098.3.579. 2.1068 Private Health Insurance [id number] Unknown [id number] 2.16840.1.120598.3.579. 2.462 Unknown [id number] 2.16840.1.224416.3.579. 2.462 Social History Date Type Detail Facility Start: 12-21-2019 End: 11-04-2023 Tobacco smoking status [facility] Never smoker [facility] Start: 12-21-2019 End: 12-08-2020 Alcohol intake Current non-drinker of alcohol (finding) [facility] Start: 1995 Sex Assigned At Not on file [facility] Exposure to SARS-CoV-2 (event) Not sure [facility] Start: 01-06-2020 End: 11-04-2023 Tobacco use and exposure Never used [facility] Tobacco smoking consumption unknown [facility] Start: 07-03-2023 End: 08-26-2023 Alcohol use Alcohol use [facility] Work Phone: Start: 07-03-2023 End: 08-26-2023 Tobacco use panel [facility] Work Phone: Start: 08-26-2023 End: 11-11-2024 Alcohol intake Ex-drinker (finding) [facility] Start: 01-22-2023 Adult Depression Screening Assessment 1 [facility] Work Phone: Are you now , , , , never or living with a partner? [facility] How often to you hav e a drink containing alcohol? Never [facility] Start: 11-04-2023 Education 14 [facility] Start: 1995 Sex Assigned At Female [facility] Start: 12-19-2023 Gender identity Identifies as female gender (finding) [facility] Start: 12-19-2023 Sexual orientation Heterosexual (fin mavis) [facility] NEGATED: Highlighted rowStart: NINF History of tobacco use Passive smoker [facility] Medical Equipment Procedure Code Equipment Code Equipment Origin al Text Equipment Identifier Dates [place] Suture #1 Fiberwire 2 Dmd Pt [place] Fibertak Dx - [id number] Start: 09-28-2020 Functional Status Date Assessment Result Facility [facility] Mental Status Date Assessment Result Facility 08-27-2021 Cognitive functions 0227:53 [facility] Clinical Notes 09-14-2020 to 02-26-2025 Telephone Encounter - Trenton Jeffrey LPN - 12/15/2024 4:08 PM EDTTelephone Encounter - Trenton Jeffrey LPN - 12/15/2024 4:08 PM EDTPatient John Clarke APRN.SOLUTIONS EXECUTIVE SECURITY - 11/11/2024 3:41 PM EDT Note Date & Type Note [facility] 02-26-2025 Note [facility] 02-03-2025 Note [facility] 02-02-2025 Note [facility] 12-15-2024 Telephone encounter Note Prescription Refill Information The patient has been identified by name and date of : Yes Caregiver verified no other encounters exist for this prescription request: Yes Caregiver confirmed with patient/requestor that no other refills are due, in the near future, with this provider at this time: Yes The last office visit in the department: 10/22/23 Does the patient have a future office visit with this provider/department: No. Pt has not been seen in over a year, needs appt. MC message to pt advising of the same. Requested Prescriptions Pending Prescriptions Disp Refills busPIRone (BUSPAR) 15 mg tablet 270 tablet 0 Sig: Take 1 tablet by mouth three times a day. Trenton Jeffrey LPN December 15, 2024 4:08 PM [facility] 12-15-2024 Miscellaneous Notes Prescription Refill Information The patient has been identified by name and date of : Yes Caregiver verified no other encounters exist for this prescription request: Yes Caregiver confirmed with patient/requestor that no other refills are due, in the near future, with this provider at this time: Yes The last office visit in the department: 10/22/23 Does the patient have a future office visit with this provider/department: No. Pt has not been seen in over a year, needs appt. MC message to pt advising of the same. Requested Prescriptions Pending Prescriptions Disp Refills busPIRone (BUSPAR) 15 mg tablet 270 tablet 0 Sig: Take 1 tablet by mouth three times a day. Trenton Jeffrey LPN December 15, 2024 4:08 PM documented in this encounter [facility] 11-11-2024 John Lazcano APRN.SOLUTIONS EXECUTIVE SECURITY - 11/11/2024 4:09 PM EDT Gardasil Gardasil is a vaccine to protect against Human Papillomavirus (HPV) types 6, 11, 16, 18, 31,33,45, 52, 58. These viruses cause cancer and precancerous lesions on the cervix (opening between vagina and uterus), in the vagina and on the vulva (skin around the outside of the vagina) as well as genital warts. The vaccine cannot cause these diseases and cannot treat them if already present. Gardasil works best if given before contact with HPV. Most people are exposed to HPV soon after starting sexual activity. The vaccine is recommended between the ages of 9 and 45. Gardasil does not protect against all strains of HPV. Women who receive the vaccine still need to have regular pelvic exams and cervical cancer screening with the pap smear. You should ask your doctor if Gardasil is right for you if you have a weakened immune system, a bleeding disorder, plan to become soon or have a current illness causing fever. Gardasil is not recommended for women. You should be sure your doctor is aware of any allergies you have and all medications and herbal supplements you take. Gardasil is given to those ages 9-14 in 2 doses at 0 and 8 months. In ages 15-45, three injections are given at 0,2,6 months. Common side effects include pain, redness, itching and swelling at the injection site, nausea, fever, dizziness and fainting. Rare but potentially serious reactions have been reported. These include allergic reaction, swollen glands, joint and muscle pain, weakness and Guillain-Willshire syndrome. documented in this encounter [facility] 11-11-2024 Note [facility] 11-11-2024 History of Present illness Narrative Control Area Operator offered: Patient declines. Sherin is a 29 year old who presents for an annual gynecologic exam without complaints. 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 VWD ruled out. Had hysteroscopy with polypectomy. Periods have improved with Annovera. Hemoglobin stable. Still get period: Yes LMP: 10/27/2024 Menses: cycles every 28 days and 4-5 days of flow Bleeding amount bothersome: Yes Bleeding between periods: Yes Period symptoms: Acne; Cramps; Mood change; Pelvic pain Number of lifetime partners: 4 control frequency: Always Contraception: Vaginal Ring HPV vaccine: No HPV:N/A Last pap smear: 11/04/2023 normal History of abnormal pap: No, all prior PAP smears have been normal Bothersome pelvic pain: No Last mammogram: never OB History Gravida1 Para0 Term0 Preterm0 AB1 Living0 SAB0 IAB0 Ectopic1 Multiple0 Live Births0 Hardware Designer History LMP: 10/27/2024, Having periods Age at Menarche: 12 Age at First : Age at Menopause: Hardware Designer History Comments: Sexual Activity: Not Currently; Male Contraception: No contraception data on record Menstrual Tracking History Flowsheet Row Office Visit from 11/11/2024 in OB/Gynecology Period Duration (Days) 5 Menstrual Flow Heavy PAST MEDICAL HISTORY Diagnosis Date 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 attack Hypothyroidism Iron deficiency anemia Iron malabsorption (HCC) 06/03/2024 Kidney stones Menorrhagia with irregular cycle 06/03/2024 PAST SURGICAL HISTORY Procedure Laterality Date CATH/STENT RENAL DRAINAGE EXTRACTION ERUPTED TOOTH/EXR wisdom teeth HYSTEROSCOPY, DIAGNOSTIC (SEPARATE 12/20/2023 hysteroscopy dilation and curettage, polypectomy, liletta insertion LITHOTRIPSY XTRCORP SHOCK WAVE X 2 REMOVAL OF HEEL SPUR Right TONSILLECTOMY HX FAMILY HISTORY Problem Relation Age of Onset Breast Cancer Mother other (hysterectomy) Mother Cervical Cancer Mother other (throat cancer) Father No Known Problems Sister No Known Problems Sister Diabetes Brother No Known Problems Brother No Known Problems Brother Cervical Cancer Maternal Grandmother Dementia Maternal Grandfather SOCIAL HISTORY Social History Tobacco Use Smoking status: Never Passive exposure: Never Smokeless tobacco: Never Vaping Use Vaping status: Never Used Substance Use Topics Alcohol use: Not Currently Drug use: Never REVIEW OF SYSTEMS Abdomen: No abdominal pain, nausea, vomiting, diarrhea, or constipation. No bloating, early satiety, indigestion, or increased flatulence. Bladder: No dysuria, gross hematuria, urinary frequency, urinary urgency, or incontinence. Breast: No breast lumps, nipple d/c, overlying skin changes, redness or skin retraction. Allergies and current medication updated:Yes SENSITIVE EXAM: The sensitive examination was discussed with the Patient or Patient's Authorized Materials Tech. As applicable, any other physician, advance practice provider, medical student, or other health professional student that will be observing or involved in the sensitive examination for educational or training purposes was discussed with the Patient or Authorized Materials Tech. The Patient or Authorized Materials Tech has agreed to proceed with the sensitive examination. (Sensitive examination includes inspection and/or palpation of the breasts, pelvis, prostate and anorectal regions). EXAM: BP 128/80 Ht 5' 4 (1.63m) Wt 296 lb (134.3kg) LMP 10/27/2024 BMI 50.78 kg/(m^2). GENERAL: pleasant, female in no apparent distress HEENT: Normocephalic, atraumatic, mucus membranes moist, and no lesions NECK: Supple, full range of motion, no adenopathy, and thyroid normal DERMATOLOGY: Normal, without lesions, non-icteric, and non-hirsute BREAST: soft, non-tender, symmetric, no dominant mass, normal nipple-areolar complex, no lymphadenopathy, and no nipple discharge CHEST: Normal inspiratory effort ABDOMEN: soft, non-tender, and no masses PELVIC: external genitalia normal, normal Bartholin's glands, urethra, [place]'s glands, no vulvar lesions, no cervical lesions, good vaginal support, physiologic discharge present, normal appearing perineal body and perianal region BIMANUAL: uterus normal size, shape and consistency, no adnexal masses, and non-tender. Limited due to habitus. RECTOVAGINAL: deferred. NEURO: alert and oriented x3,exam grossly non-focal EXTREMITIES: normal ASSESSMENT/PLAN: 1) Health maintenance: Pap/HPV up to date. Mammogram - consider starting age 35 Nutrition, exercise and routine health maintenance exams reviewed. [facility] with [facility] weight management. Lipids/glucose: followed by PCP/Dr. Sandoval HPV vaccine: opts to start series today 2) Contraception: Annovera. Denies migraines with aura, VTE history or clotting disorder, hypertension, or liver issues. Does not smoke. 3) STD screening: Declined STD check. 4) Follow up one year or sooner as needed Family history of breast cancer - ICD9: V16.3, ICD10: Z80.3 - Mom diagnosed around 45-40 - Mom had negative genetic testing - Consider early screening John Luque APRN.CNP Patient identified by name and date of . Sherin Sandoval is here for her HPV Gardasil vaccination, injection # one of the series. Patient ?No Gardasil injection was given without incident. See immunizations for details of immunizations administered today. VIS sheet provided: Yes Patient advised to follow up in 2 months from the 1st injection Provider John Luque CNP was present in office at time of injection. Lily Mcihel MA documented in this encounter [facility] 09-01-2024 Note Addended by: VIKKI CAMARGO on: 09/01/2024 04:44 PM Modules accepted: Orders [facility] 09-01-2024 Telephone encounter Note Noted- 5mg next dose ordered to make sure it goes thru. [facility] 09-01-2024 Miscellaneous Notes Addended by: VIKKI SANDOVAL on: 09/01/2024 04:44 PM Modules accepted: Orders Noted- 5mg next dose ordered to make sure it goes thru. PA submitted for Zepbound since patient has been in weight management for 6 months. Received response that it was approved. Patient notified. Miguel Ernst MA documented in this encounter [facility] 09-01-2024 Telephone encounter Note PA submitted for Zepbound since patient has been in weight management for 6 months. Received response that it was approved. Patient notified. Miguel Ernst MA [facility] 08-31-2024 Instructions Vikki Epstein MD - 08/31/2024 4:15 PM EDT Images from the original note were not included. Begin your new Zepbound injections at a starting dose of 2.5 mg once weekly. Keep the injection in the refrigerator until ready to use. Take your injection on the same day each week; if you miss your scheduled day, take it the next day (do not take it early). Monitor for any side effects such as diarrhea, constipation, nausea, or vomiting, especially during the first day after your shot. Check MyChart when you take your third shot to confirm that the next dose has been ordered, and by your fourth injection, make sure the pharmacy has your refill ready. Contact [facility] s nutrition services to schedule an appointment with a wallcovering hanger. Let them know you missed their call and that Dr. Sandoval has already set up the consult. Continue tracking your food intake and portion sizes. Aim to include at least 30 grams of protein with every meal--if necessary, add options like a protein shake, Ukrainian yogurt, a cheese stick, or a hard-boiled egg. When possible, review nutrition labels (especially on bread) and use a food scale to measure serving sizes. Work on obtaining your CPAP device as soon as possible to help improve your sleep. Get your vitamin D level rechecked today to monitor your previous low value. Keep up your physical activity--continue with your daily step goals (working from 8,000 toward 10,000 steps) and incorporate resistance training (such as squats, push-ups, or exercises with resistance bands) 3-4 times per week for muscle health. Reduce your intake of regular pop; if you need a soda, consider switching to a diet version to help limit excess calories. Maintain your hydration by drinking about 4-5 bottles of water daily and add a sugar-free electrolyte drink if desired. Your follow-up appointments are scheduled for November 17 at 11:40 and February 08 at 9:50. Please follow these instructions after you leave the clinic and reach out on [employer] if you have any questions about your medication orders or dosing. Why Is Protein So Important for Weight loss? consuming more protein not only reduces body weight but enhances body composition by decreasing fat mass while preserving fat-free mass During weight loss phase protein consumption (with normal kidney function) should be 1-1.6g protein per Kilogram of body weight (1kg=2.2lbs) On average Women need to Aim for a minimum 90g protein per day Consuming higher protein can also prevent weight regain after weight loss Protein consumption increases hormones responsible for satiety (feeling full)- these include Gut hormones like Glucagon-like peptide-1 (GLP-1), Cholecystokinin (CCK), Peptide Tyrosine-Tyrosine (PYY) and decreasing the Gut hormone responsible for causing hunger Ghrelin Protein has an increased thermogenesis effect of food- which means it take more calories to break down protein when consumed compared to carbohydrates or fats Protein also prevents a losing lean mass during weight loss (lose more fat and preserve fat free mass) which helps to increase resting energy expenditure (resting metabolic rate) Every pound of muscle roberts ~ 6 kcal per pound/day vs fat roberts ~ 2kcal per pound/day Carbohydrates - Why do You Crave Them? Eating too many refined carbohyrdates (sugar beverages, pastries, bread, pizza) which raises your blood glucose levels and therefore releasing insulin which in turn causes increase in hunger Carbohydrates suppress Ghrelin quickly but does not maintain the suppression for very long therefore hunger returns more quickly Consuming carbohydrates leads to a release of Dopamine feel good hormone in our brain So how do you Curb these cravings? Eating Whole Foods with more fiber - High fiber carbs are absorbed and digested slowly so it does not impact blood sugar levels as much and will help in making you feel escalante for longer; fiber also is healthy for your gut bacteria and can help with constipation. Remember- carbohydrates are not the enemy but know what a proper serving size is, choose nutritious carbohydrates and space them out between meals. Always- eat your protein first followed by your non starchy vegetables followed by your carbohydrates- it will help your body with your glucose and insulin regulation Processed Foods vs Whole Foods- Impact on Weight: People who eat Ultra Processed food tend to consume about 500 calories more per day Ultra Processed foods are considered Calorie Dense so when a person feels full they have typically already over eaten and consumed more calories Whole Foods (unprocessed foods) tend to be more more filling and more Nutrient Dense Unprocessed foods can be more expensive and not realistic for everyone however when you have the choice to consume unprocessed vs Ultra processed foods always pick unprocessed. Why can't people stop eating Ultra Processed foods? They are economical and optimized for taste by [employer] - they are designed to make you want to keep eating them- they feed common cravings and bypass the mechanisms that tell your brain you are full Benefits of eating Whole Foods and cutting out Ultra Processed Foods Increased concentration and focus (decreased brain fog), improved mood, better sleep, Decrease in fatigue, improvement in gut health, decreased inflammation, Likely WEIGHT LOSS Nutrition Reminders: NO NAKED CARBS!! Protein >= Carbs for each meal (if you are going to eat 50g carbs for lunch you should eat 50g protein or more). If you do not eat your carbs for lunch you do not get to save them for dinner- you use them or lose them. Balance your Protein between meals. Unless told otherwise your Minimum protein each day is 30grams per meal but don t be afraid to eat more (try to aim for 1.6g protein per Kilogram of bodyweight). Focus on WHOLE FOODS if you can as your Gut Microbiome will benefit and you will feel more satisfied - the only caviot to this is protein shakes if needed. Water intake should be a minimum of 64oz per day- but more is better (to an extent) unless you have a medical condition that requires you to keep it to a minimum. Nothing is off limits- this is not about restricting yourself- this about learning what your body can have and still respond well to and learning how to balance food and still feel good. Track your food, weigh your food, measure your portion sizes as most people underestimate their food by approximately 40%. You should be tracking your Carbohydrates and Protein daily. It s ok if you had a bad day- write it down and move on! Weigh yourself daily or at least 5 times per week, it will help to keep you accountable. If you are hungry- think about your stress level, your sleep (did you get 7.5-9hrs?) and your protein consumption- if you did not meet your goals then those could be contributing to your hunger. During weight loss phase it is ok to use two protein shakes per day and eating one meal along with it - studies have shown you will lose more weight and keep it off. Take a multivitamin daily Sit less Move more- Exercise including resistance training is very important for your health and if you are not getting routine exercise right now there will come a point when it will become an important piece of this process. Do Not skip meals- it could lead to you not getting enough protein or overeating at your next meal. Intermittent fasting can be a good tool for some but right now try to eat 3 regular meals. Only consume snacks if you are truly hungry. Creating a Mindful Eating Environment: 10 Mindless Eating Solutions If you're looking for easier ways to make healthy changes to your diet and lifestyle, consider these simple mindless eating solutions for staying on-track with nutrition: Serve Salad and Vegetables First. Before bringing out your main dish, serve salad and vegetables first to ensure you're eating enough of this important food group. This strategy will also help you eat less of the rest of your dish which is likely higher in calories, etc. Serve Your Main [facility] on the Stove or Counter. Studies show that we're likely to eat less if our food is placed on the stove or counter rather than right in front of us. Eat on Smaller Plates. Similar to the strategy mentioned above, studies show that you're likely to consume less food if you're eating from a smaller plate. This is likely due to the increase of smaller portion sizes. Turn off Your Television. Watching television as you eat can be highly distracting, and it affects your ability to eat mindfully. For example: you're less likely to notice when you're full, so you might consume excess calories. Keep Mostly Water On-hand. Calories from drinks can add up quickly, especially in fruit juices, alcohol and soft drinks. By minimizing the amounts of those drinks on-hand, you're more likely to consume water when you're thirsty - and water has amazing health benefits! Keep Your Kitchen Organized. An organized refrigerator, counter and cabinet space makes you more likely to find and choose the foods which are healthiest for you. On the contrary, a messy kitchen space may make you more apt to grab the first item you see. Pre-cut Your Fruits and Vegetables. Let's admit it: We're more likely to put off eating produce if we have to go through the burden of cutting it first. Pre-cut fruits and vegetables will eliminate this extra step. Have at Least Six Single Servings of Lean Protein On-hand. This includes lean meats such as turkey and chicken, yogurt, eggs, nuts, beans and legumes. By having plenty of lean protein on-hand, you can better manage your appetite and hunger levels. Keep All Snack Foods in One Inconvenient Cupboard. You're less likely to reach for unhealthy snack foods if they're not all gazing up at you from plain sight! Keep Only a Fruit Bowl on Your Counter. This way, if you're one to grab foods based off of their availability, you'll reach for healthier fruits rather than less healthy snack foods. https://www.obesityaction.org/comm unity/news/community-news/create-a -pbrcibt-hqixdy-kfkgvvribln/ A diet that leaves you feeling full and satisfied over the course of the day leaves less room for wondering about whether you should have a snack when you re bored. 1. Eat regularly throughout the day Try to spread out your calorie intake throughout a regular meal and snack schedule. This may keep you more full and less hungry than eating the same number of calories on a less regular meal schedule (5Trusted Source). If you re feeling content with your food choices for the day, you might be less likely to reach for a snack when you re bored. What s more, knowing that you plan to eat a meal or snack in the next few hours could be motivation to hold back from eating until then. The same meal schedule doesn t work for everyone. Some people like to have three meals and a few snacks each day, while others may prefer to have more or less. Finding a routine that works for you and sticking with it seems to matter more than exactly how many meals and snacks you have each day. 2. Don t restrict your favorite foods If you tend to crave or reach for certain foods when you re bored, you might be tempted to completely stop eating those foods to remove the temptation. However, for some people, research shows this approach might be counterproductive. If you find you re more susceptible to food cravings, depriving yourself of certain foods might make you crave them more in the short term (6Trusted Source, 7Trusted Source, 8Trusted Source). Rather than eliminating the foods you crave, try eating them regularly but in moderation. This might help reduce your urge to snack on those foods when you re bored. 3. Have nutritious, filling snacks When you ve just had a filling meal or snack, you may be less likely to associate feeling bored with wanting to eat. Certain foods are more filling than others. Some particularly filling foods include: Protein: eggs, fish, meat, yogurt, cottage cheese Fiber-rich foods: oatmeal, quinoa, whole grains, legumes, popcorn Foods high in water: fruits, vegetables, soups 4. Eat from a plate Sometimes it s hard to distinguish between hunger and boredom. Ocassationally, there may still be times when you reach for a snack when you re bored. To avoid overeating and letting boredom get the best of your appetite in those moments, portion your snacks onto a plate or serving dish rather than eating them directly from the bag or container. Visual cues, such as the plate size, container size, and even the type of dish you eat from, can all influence how much you eat (17Trusted Source, 18Trusted Source, 19Trusted Source). SUMMARY Eating a healthy diet comprising regular meals, nutritious and filling snacks, and appropriate portion sizes may be more satisfying and thus make it less tempting to eat when you re feeling bored. 5-8. Tune in to your emotions Researchers know that your emotions and mood often influence when, what, and how much you eat. Experts have also suggested that how well you regulate your emotions can influence boredom eating. Poor emotional regulation could potentially lead to an increase in eating when you re feeling bored (22Trusted Source, 23Trusted Source). Practicing self-awareness and developing a better understanding of how your own emotions are influencing your appetite is a great starting place to combat boredom eating. 5. Eat mindfully To be mindful means to be conscious, aware, and focused on the present moment. To eat mindfully means to be aware of your mental and physical states related to food. Some studies have found mindfulness is particularly helpful at helping people reduce eating in response to emotions like boredom (24Trusted Source, 25Trusted Source, 26Trusted Source). Mindful eating is useful in differentiating between boredom and hunger, as it emphasizes paying close attention to your cravings and hunger and fullness cues. 6. Know your hunger signs Being perceptive of your specific hunger and fullness signs may be one of the most effective ways to determine whether you re hungry or bored. When your body is physically hungry and in need of calories for energy, you may notice signs like your stomach growling, a headache, and feelings of weakness or fatigue. On the other hand, when you re experiencing boredom hunger -- or another type of emotional hunger -- you may crave a certain food without any of the traditional signs of physical hunger. 7. Embrace being bored Throughout 2019 and into 2020, people reported feeling bored at higher rates than usual due to the COVID-19 pandemic (27Trusted Source). In certain situations, being bored too often may have detrimental health effects, such as increased rates of depression and altered eating habits (1Trusted Source, 28Trusted Source). Still, a little boredom is OK and normal to experience from time to time. What s more, research has linked boredom to certain benefits. For example, it may help motivate creativity (29Trusted Source, 30Trusted Source). Trying to prevent boredom or override the feeling by eating and finding other distractions doesn t always work. You might find meaning in the downtime by trying to embrace boredom instead. 8. Take it easy on yourself Remember, it s normal to reach for a snack out of boredom on occasion. When it happens, don t take it as a failure. Rather, use it as a learning experience and opportunity to treat yourself with kindness and compassion. SUMMARY Your mood and emotions play a significant role in psychologically induced hunger like boredom eating. Learning to be aware of your emotions, hunger triggers, and fullness cues can help prevent you from eating because you re bored. 9-11. Understand your environment Much of what you eat is influenced by your environment, and the same goes for when and how much you eat. Here are a few specific ways you can tailor your environment to discourage yourself from boredom eating when the urge strikes. 9. Know your triggers Especially when it comes to psychological types of hunger like boredom eating, external factors often trigger the urge to eat. Identifying the triggers in your life that tend to cause the urge to eat when you re bored is lehman to breaking the habit. Some common triggers to be aware of are stress, food availability, and pictures of food. Make notes in a food journal about what you re doing and your environment when you feel the urge to eat. This might help identify -- and stop -- boredom eating patterns. 10. Avoid the urge to eat in front of a screen Eating in front of a screen while you re bored can influence you to overeat when you aren t even hungry. Many people turn to screen-based activities like watching TV or scrolling on their phone when they re feeling bored. Some studies have found that people tend to eat more than they otherwise would when they re distracted or in front of a screen, such as a TV or computer (35Trusted Source, 36Trusted Source, 37Trusted Source). Break associations you might have between eating and screen time by making a point of eating meals at a table -- not in front of the TV -- and putting your phone away while you re dining. Consider replacing mindless eating during screen time with another activity, such as knitting, doodling, or playing with a toy or piece of jewelry, to keep your hands busy while you watch TV. 11. Change your scenery Sometimes all it takes to get your mind off food when you re feeling bored is a little change of scenery. When you re bored and fighting the urge to snack, standing up and moving to a new location -- even if it s just from one room to another -- may be enough to distract your mind from food until the boredom passes. SUMMARY External factors often trigger urges to eat when you re not physically hungry. Identifying the factors in your environment that trigger boredom eating is lehman to breaking those habits. 12-13. Mix things up To be bored means that you re feeling uninterested in your current activity. The feeling often occurs when the day has been monotonous or repetitive. The same goes for boredom eating. You may eat simply as a way to escape the regular routines of the day (38Trusted Source, 39Trusted Source). Adding variety to your day keeps things feeling fresh and exciting, and it might fend off boredom eating. 12. Take a walk When you re feeling bored, taking a walk not only provides a distraction from any urges to snack but also physically removes you from food temptations. Sometimes a quick [id number] walk is all it takes to recenter yourself and forget about the urge to snack out of boredom. If you re not able to take a walk, you might find it helpful to take a few minutes to stretch or do breathing exercises. 13. Make new habits One of the upsides of being bored is that it can drive you to try new things. Next time you feel bored, take a few minutes to think about how you d really like to be spending that time. Is there a new hobby you d like to try or an old book that you never got around to reading? Try to look at boredom as a space for meaningful stimulation in your day. 13 Ways to Stop Eating When You're Bored (Codexis) Tips to reduce food cravings Aim to eat nutritionally balanced meals. Foods with protein and fiber provide longer-lasting satisfaction. Avoid long stretches of not eating. Eat a nutritious meal or snack every 3-4 hours. Waiting too long to eat because you are busy or distracted may only lead to stronger hunger when you do eat and the risk of overeating. Also keep in mind that if your bedtime is more than 4 hours after you ve finished dinner, you may feel hungry again; to avoid snacking late night which can disrupt sleep, try to go to bed earlier when possible. Avoid choosing hyperpalatable or ultraprocessed snacks that are high in sodium, fat, sugar, and calories but low in nutrition. These are the types of foods that trigger the brain reward pathways and cause cravings to eat more. Choose satisfying, less-processed snacks like fresh fruit, a handful of nuts, or a cup of low-sugar yogurt. Limit environmental cues to eat, such as scrolling through social media posts about food or [employer] (online videos of people eating enormous quantities of decadent meals) and watching television cooking shows. In an office setting, detour away from the candy bowls and platters of bagels and treats that may be sitting in the break room. Food cravings are sometimes learned behaviors that are associated with an event or environment, such as craving potato chips while watching late-night television. If so, research suggests that it is possible to unlearn the behavior and reduce the craving by avoiding the food completely for an extended time. [25] In addition, you can try changing the association by changing your evening routine with a different activity like listening to an audiobook or podcast. Practice mindfulness when sensing a growing craving. Ask yourself if you are stressed, bored, angry? If so, try instead doing breathing exercises, talking a brisk 5-10 minute walk, listening to a meditation inessa or podcast, or playing a few favorite songs. If you can distract yourself from eating for about 5-7 minutes, the craving may subside. Learn more about mindful eating. Try other dopamine-inducing activities such as taking a walk in nature on a alethea day, dancing, or watching a funny video and laughing aloud! TIRZEPATIDE (MOUNJARO/ZEPBOUND) Tirzepatide (Mounjaro) is a new combination drug (mimics 2 gut hormones, GLP1 and GIP) which has demonstrated superior weight loss >20% body wt loss after 72 week randomized controlled study. Mounjaro is approved for Diabetes and Zepbound is approved for treatment of obesity or overweight with co-morbidities and for obstructive sleep apnea. Tirzepatide delays gastric emptying and has the potential to alter absorption of oral medications. This is important in patients taking narrow therapeutic index drugs or drugs that need a minimum blood level for efficacy. If you are taking oral contraceptives switch to a non-oral contraceptive method or add a barrier contraceptive method for 4 weeks after initiation of tirzepatide and for 4 weeks after each dose escalation. Video Instructions for Injecting Mounjaro: https://www.PollitoInglesube.com/watch?v=nx nhBdyTSZ0 Savings Card: https://www.[employer]/savings-r esources Link to [employer] Website trend.ly Medication Guide: https://pi.Telelogos.com/us/mounjaro-u s-mg.pdf?s=mg Written pen instructions: https://uspl.roselia.com/mounjaro/mo unjaro.html#ug0 Tirzepatide: Patient drug information What is Mounjaro? Mounjaro is an injectable prescription medicine that is used along with diet and exercise to improve blood sugar (glucose) in adults with type 2 diabetes mellitus. It is not known if Mounjaro can be used in people who have had inflammation of the pancreas (pancreatitis). Mounjaro is not for use in people with type 1 diabetes. It is not known if Mounjaro is safe and effective for use in children under 18 years of age. It works in multiple ways. It helps: - THE BODY RELEASE INSULIN WHEN BLOOD SUGAR IS HIGH - THE BODY REMOVE EXCESS SUGAR FROM THE BLOOD - STOP THE LIVER FROM MAKING AND RELEASING TOO MUCH SUGAR - REDUCE HOW MUCH FOOD IS EATEN - SLOW DOWN HOW QUICKLY FOOD LEAVES THE STOMACH. THIS LESSENS OVER TIME. You can learn about possible side effects of Mounjaro here. Select Safety Information Changes in vision. Tell your healthcare provider if you have changes in vision during treatment with Mounjaro PURPOSE AND SAFETY SUMMARY WITH WARNINGS Important Facts About Mounjaro ([id number]). It is also known as tirzepatide. Mounjaro is an injectable prescription medicine for adults with type 2 diabetes used along with diet and exercise to improve blood sugar (glucose). It is not known if Mounjaro can be used in people who have had inflammation of the pancreas (pancreatitis). Mounjaro is not for use in people with type 1 diabetes. It is not known if Mounjaro is safe and effective for use in children under 18 years of age. Warnings Mounjaro may cause tumors in the thyroid, including thyroid cancer. Watch for possible symptoms, such as a lump or swelling in the neck, hoarseness, trouble swallowing, or shortness of breath. If you have a symptom, tell your healthcare provider. Do not use Mounjaro if you or any of your family have ever had a type of thyroid cancer called medullary thyroid carcinoma (MTC). Do not use Mounjaro if you have Multiple Endocrine Neoplasia syndrome type 2 (MEN 2). Do not use Mounjaro if you are allergic to tirzepatide or any of the ingredients in Mounjaro. Mounjaro may cause serious side effects, including: Inflammation of the pancreas (pancreatitis). Stop using Mounjaro and call your healthcare provider right away if you have severe pain in your stomach area (abdomen) that will not go away, with or without vomiting. You may feel the pain from your abdomen to your back. Low blood sugar (hypoglycemia). Your risk for getting low blood sugar may be higher if you use Mounjaro with another medicine that can cause low blood sugar, such as a sulfonylurea or insulin. Signs and symptoms of low blood sugar may include dizziness or light-headedness, sweating, confusion or drowsiness, headache, blurred vision, slurred speech, shakiness, fast heartbeat, anxiety, irritability, or mood changes, hunger, weakness and feeling jittery. Serious allergic reactions. Stop using Mounjaro and get medical help right away if you have any symptoms of a serious allergic reaction, including swelling of your face, lips, tongue or throat, problems breathing or swallowing, severe rash or itching, fainting or feeling dizzy, and very rapid heartbeat. Kidney problems (kidney failure). In people who have kidney problems, diarrhea, nausea, and vomiting may cause a loss of fluids (dehydration), which may cause kidney problems to get worse. It is important for you to drink fluids to help reduce your chance of dehydration. Severe stomach problems. Stomach problems, sometimes severe, have been reported in people who use Mounjaro. Tell your healthcare provider if you have stomach problems that are severe or will not go away. Changes in vision. Tell your healthcare provider if you have changes in vision during treatment with Mounjaro. Gallbladder problems. Gallbladder problems have happened in some people who use Mounjaro. Tell your healthcare provider right away if you get symptoms of gallbladder problems, which may include pain in your upper stomach (abdomen), fever, yellowing of skin or eyes (jaundice), and dilshad-colored stools. Common side effects The most common side effects of Mounjaro include nausea, diarrhea, decreased appetite, vomiting, constipation, indigestion, and stomach (abdominal) pain. These are not all the possible side effects of Mounjaro. Talk to your healthcare provider about any side effect that bothers you or doesn't go away. Tell your healthcare provider if you have any side effects. You can report side effects at [id number]-1937 or www.fda.gov/medwatch. Before using Your healthcare provider should show you how to use Mounjaro before you use it for the first time. Before you use Mounjaro, talk to your healthcare provider about low blood sugar and how to manage it. Review these questions with your healthcare provider: Do you have other medical conditions, including problems with your pancreas or kidneys, or severe problems with your stomach, such as slowed emptying of your stomach (gastroparesis) or problems digesting food? Do you take other diabetes medicines, such as insulin or sulfonylureas? Do you have a history of diabetic retinopathy? Are you or plan to become or or plan to breastfeed? It is not known if Mounjaro will harm your unborn baby. Do you take control pills by mouth? These may not work as well while using Mounjaro. Your healthcare provider may recommend another type of control when you start Mounjaro or when you increase your dose. Do you take any other prescription medicines or qcsj-bfd-pdcycyp drugs, vitamins, or herbal supplements? How to take Read the Instructions for Use that come with Mounjaro. Use Mounjaro exactly as your healthcare provider says. Mounjaro is injected under the skin (subcutaneously) of your stomach (abdomen), thigh, or upper arm. Use Mounjaro 1 time each week, at any time of the day. Do not mix insulin and Mounjaro together in the same injection. If you take too much Mounjaro, call your healthcare provider or seek medical advice promptly. Learn more For more information, call 6-933-MhfuiRj ( ) or go to www.[employer]. This information does not take the place of talking with your healthcare provider. Be sure to talk to your healthcare provider about Mounjaro and how to take it. Your healthcare provider is the best person to help you decide if Mounjaro is right for you. Mounjaro and its delivery device base are trademarks owned or licensed by [employer], its subsidiaries, or affiliates. HE [employer] SEPTEMBER2021 Access gamesGRABR Online for additional drug information, tools, and databases. Copyright 6418-2666 [employer]. All rights reserved. Contributor Disclosures (For additional information see Tirzepatide: Drug information) You must carefully read the Consumer Information Use and Disclaimer below in order to understand and correctly use this information. Brand Names: [place] Mounjaro Warning This drug has been shown to cause thyroid cancer in some animals. It is not known if this happens in humans. If thyroid cancer happens, it may be deadly if not found and treated early. Call your doctor right away if you have a neck mass, trouble breathing, trouble swallowing, or have hoarseness that will not go away. Do not use this drug if you have a health problem called Multiple Endocrine Neoplasia syndrome type 2 (MEN 2), or if you or a family member have had thyroid cancer. Have your blood work checked and thyroid ultrasounds as you have been told by your doctor. What is this drug used for? It is used to lower blood sugar in patients with high blood sugar (diabetes). What do I need to tell my doctor BEFORE I take this drug? If you are allergic to this drug; any part of this drug; or any other drugs, foods, or substances. Tell your doctor about the allergy and what signs you had. If you have type 1 diabetes. Do not use this drug to treat type 1 diabetes. If you have ever had pancreatitis. If you have stomach or bowel problems. This is not a list of all drugs or health problems that interact with this drug. Tell your doctor and pharmacist about all of your drugs (prescription or OTC, natural products, vitamins) and health problems. You must check to make sure that it is safe for you to take this drug with all of your drugs and health problems. Do not start, stop, or change the dose of any drug without checking with your doctor. What are some things I need to know or do while I take this drug? Tell all of your health care providers that you take this drug. This includes your doctors, nurses, pharmacists, and dentists. Wear disease medical alert ID (identification). Follow the diet and workout plan that your doctor told you about. Check your blood sugar as you have been told by your doctor. Do not drive if your blood sugar has been low. There is a greater chance of you having a crash. control pills may not work as well to prevent . If you take control pills, you may need to switch to another type of hormone-based control like a vaginal ring if your doctor tells you to. If another type of hormone-based control is not an option, use some other kind of control also, like a condom. Do this for 4 weeks after starting this drug and for 4 weeks each time the dose is raised. This drug may prevent other drugs taken by mouth from getting into the body. If you take other drugs by mouth, you may need to take them at some other time than this drug. Talk with your doctor. It may be harder to control blood sugar during times of stress such as fever, infection, injury, or surgery. A change in physical activity, exercise, or diet may also affect blood sugar. Talk with your doctor before you drink alcohol. Do not share with another person even if the needle has been changed. Sharing your tray or pen may pass infections from one person to another. This includes infections you may not know you have. If you cannot drink liquids by mouth or if you have upset stomach, throwing up, or diarrhea that does not go away; you need to avoid getting dehydrated. Contact your doctor to find out what to do. Dehydration may lead to new or worse kidney problems. A severe and sometimes deadly pancreas problem (pancreatitis) has happened with other drugs like this one. Tell your doctor if you are , plan on getting , or are breast-feeding. You will need to talk about the benefits and risks to you and the baby. What are some side effects that I need to call my doctor about right away? WARNING/CAUTION: Even though it may be rare, some people may have very bad and sometimes deadly side effects when taking a drug. Tell your doctor or get medical help right away if you have any of the following signs or symptoms that may be related to a very bad side effect: Signs of an allergic reaction, like rash; hives; itching; red, swollen, blistered, or peeling skin with or without fever; wheezing; tightness in the chest or throat; trouble breathing, swallowing, or talking; unusual hoarseness; or swelling of the mouth, face, lips, tongue, or throat. Signs of kidney problems like unable to pass urine, change in how much urine is passed, blood in the urine, or a big weight gain. Signs of gallbladder problems like pain in the upper right belly area, right shoulder area, or between the shoulder blades; yellow skin or eyes; fever with chills; bloating; or very upset stomach or throwing up. Signs of a pancreas problem (pancreatitis) like very bad stomach pain, very bad back pain, or very bad upset stomach or throwing up. Dizziness or passing out. A fast heartbeat. Change in eyesight. Low blood sugar can happen. The chance may be raised when this drug is used with other drugs for diabetes. Signs may be dizziness, headache, feeling sleepy or weak, shaking, fast heartbeat, confusion, hunger, or sweating. Call your doctor right away if you have any of these signs. Follow what you have been told to do for low blood sugar. This may include taking glucose tablets, liquid glucose, or some fruit juices. What are some other side effects of this drug? All drugs may cause side effects. However, many people have no side effects or only have minor side effects. Call your doctor or get medical help if any of these side effects or any other side effects bother you or do not go away: Constipation, diarrhea, stomach pain, upset stomach, throwing up, or feeling less hungry. Heartburn. These are not all of the side effects that may occur. If you have questions about side effects, call your doctor. Call your doctor for medical advice about side effects. You may report side effects to your national health agency. How is this drug best taken? Use this drug as ordered by your doctor. Read all information given to you. Follow all instructions closely. It is given as a shot into the fatty part of the skin on the top of the thigh, belly area, or upper arm. If you will be giving yourself the shot, your doctor or nurse will teach you how to give the shot. Keep taking this drug as you have been told by your doctor or other health care provider, even if you feel well. Take the same day each week. Move site where you give the shot each time. Take with or without food. Wash your hands before and after use. Do not use if the solution is leaking or has particles. This drug is colorless to a faint yellow. Do not use if the solution changes color. If you are also using insulin, you may inject this drug and the insulin in the same area of the body but not right next to each other. Do not mix this drug in the same syringe with insulin. Do not move this drug from the pen to a syringe. Each pen is for one use only. Throw away any part of the used pen after the dose is given. Throw away needles in a needle/sharp disposal box. Do not reuse needles or other items. When the box is full, follow all local rules for getting rid of it. Talk with a doctor or pharmacist if you have any questions. What do I do if I miss a dose? If it is within 4 days after the missed dose, take the missed dose and go back to your normal day. If it has been more than 4 days since the missed dose, skip the missed dose and go back to your normal day. Do not take 2 doses at the same time or extra doses. How do I store and/or throw out this drug? Store in a refrigerator. Do not freeze. Do not use if it has been frozen. If needed, each pen may be stored at room temperature for up to 21 days. If you store at room temperature, throw away any part not used after 21 days. Protect from heat. Store in the original container to protect from light. Keep all drugs in a safe place. Keep all drugs out of the reach of children and pets. Throw away unused or drugs. Do not flush down a toilet or pour down a drain unless you are told to do so. Check with your pharmacist if you have questions about the best way to throw out drugs. There may be drug take-back programs in your area. General drug facts If your symptoms or health problems do not get better or if they become worse, call your doctor. Do not share your drugs with others and do not take anyone else's drugs. Some drugs may have another patient information leaflet. If you have any questions about this drug, please talk with your doctor, nurse, pharmacist, or other health care provider. If you think there has been an overdose, call your poison control center or get medical care right away. Be ready to tell or show what was taken, how much, and when it happened. Last Reviewed [id number] Consumer Information Use and Disclaimer This generalized information is a limited summary of diagnosis, treatment, and/or medication information. It is not meant to be comprehensive and should be used as a tool to help the user understand and/or assess potential diagnostic and treatment options. It does NOT include all information about conditions, treatments, medications, side effects, or risks that may apply to a specific patient. It is not intended to be medical advice or a substitute for the medical advice, diagnosis, or treatment of a health care provider based on the health care provider's examination and assessment of a patient's specific and unique circumstances. Patients must speak with a health care provider for complete information about their health, medical questions, and treatment options, including any risks or benefits regarding use of medications. This information does not endorse any treatments or medications as safe, effective, or approved for treating a specific patient. [employer] and its affiliates disclaim any warranty or liability relating to this information or the use thereof. The use of this information is governed by the Terms of Use, available at https://www.[employer]/en/k now/uykdcztd-bumkbqwsojcve-mggzr. documented in this encounter [facility] 08-31-2024 History of Present illness Narrative Images from the original note were not included. Some documentation from previous visit of 06/30/24 was copied and pasted, documentation has been reviewed and edited as necessary for today's visit. Patient Summary: Sherin is a 29 year old Female who presents for follow-up evaluation of obesity/weight management to treat and prevent related co-morbidities. In our previous visits we have discussed lifestyle intervention including a nutrition recommendations and physical activity optimization. Her last office visit was 2 months ago. Assessment/plan from last visit: - continue VIt D supplement - RECHECK VIT D level today- ordered - FOLLOW up WITH sleep MEDICINE SCHEDULED 07/06 FOR JOSEPH - discussed using tracking to plan meals- reviewed tracking protein goal of 90-200g/day and carbs <100g per day- gave her online resources to check for basic concepts. Reviewed serving sizes, measuring food. Discussed no calories from drinks. - Low carb, high protein, whole foods - accepts sleep medicine consult and study - accepts nutrition consult - zepbound- covered after 6 months of diet/exercise program AUGUST - doing well with METFORMIN 1000mg XR BID- continue at this time - follow up with heme as scheduled for anemia - PCP to manage synthroid for hypothyroidism - importance of goal setting reviewed with patient Interval History PT specifies the following items as new or significant updates since the last appointment: -met with sleep medicine and started on CPAP - getting 8000 steps/day - switched to more chicken - hard time with stopping soda - does well for awhile then will get craving. - working on portion sizes but probably still too big. - still needs to get CPAP machine - is ready to get in to see nutrition - missed their call but will call back - feeling very positive despite weight gain - wants to start zepbound. Weight loss since last vist: +8 lbs, total weight lost: +1 lb - Last Wt 08/31/24: 293 lb 06/25/24: 285 lb 05/20/24: 289 lb 04/10/24: 286 lb Starting weight: 03/02/24 : 132.5 kg (292 lb 3.2 oz) Goal weight: 200 lb 5% weight loss = 278 lbs, 10% weight loss = 263 lbs Anti-obesity medications: Tirzepatide (Zepbound)- didn't start- thinks it is covered when she checked insurance Benefit: Adverse effects: Anti-obesity medications: Metformin Benefit: insulin level Adverse effects:none Weight promoting medications: Other prozac, atarax Previous Diet (initial appointment): Awake - 7am B - bagel butter or fruit smoothie- frozen berries, kiwi, strawberries, yogurt plain, apple juice S - L - goldfish S - D - 5pm meat and mashed potato and peas, chicken burrito-rice, chicken and cheese, chicken and salad- olive garden dressing and croutons. Hamburger helpers S - ice cream (every other week) Fluids: 4-5 16oz bottles of water and fruit juice snapple (one per day), stopped soda about 1.5 yrs ago Bedtime -8-9 falls asleep an hour later Quality of diet: 24hr recall suggests in between diet. Characterization of diet:Unstructured, unhealthy snacking, excessive cravings, increased consumption of sugar sweetened beverages, and skip meals. 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 Eating Disorder no Cravings: sugar but only has about has about 1 every other week- better since gave up soda Dietary changes: - Breakfast: Protein shake around 7:30-8:00 AM. - Lunch: Around 12:30 PM, typically a peanut butter sandwich on wheat bread or a salad with croutons and [place] dressing, along with a handful of Cheez-Its. - Dinner: Primarily chicken-based meals such as chicken cordon alicia, shredded chicken tacos, chicken and noodles, and chicken parmesan with noodles (avoiding breadsticks). - Reports enjoying the chicken-based meals but finds them pretty boring. - Trying to eat less and watch portion sizes, especially avoiding breadsticks with chicken parmesan. , Fluids - water4-5 bottles per day, rootbeer (during holidays- will stop again) Trying to eat 3 meals a day, including breakfast Increasing water intake Increasing protein Reducing sugar-sweetened beverages Reducing carbohydrates Current Barriers: large portion sizes- DINNER Exercise: not regular but moving heather during the day - 2800 steps/day Stress: Stress:yes , Cause:Personal Sleep: Duration: 8-9 hours. JOSEPH yes ; CPAP not yet- seeing sleep medicine 07/06 CrCl cannot be calculated (Patient's most recent lab result is older than the maximum 180 days allowed.). PAST MEDICAL HISTORY Diagnosis Date 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 attack Hypothyroidism Iron deficiency anemia Iron malabsorption 06/03/2024 Kidney stones Menorrhagia with irregular cycle 06/03/2024 Current Outpatient Medications Medication Sig Dispense Refill busPIRone (BUSPAR) 15 mg tablet Take 1 tablet by mouth three times a day. 270 tablet 0 levothyroxine (SYNTHROID) 50 mcg tablet Take 1 tablet by mouth once daily. 90 tablet 1 FLUoxetine (PROZAC) 20 mg capsule Take 1 capsule by mouth once daily. 90 capsule 1 CPAP/BIPAP/OTHER autoCPAP 5-[address] [facility] 1 Each 0 tirzepatide, weight loss (ZEPBOUND) 2.5 mg/0.5 mL pen injector Inject 2.5 mg subcutaneously one time a week. (Patient not taking: Reported on 07/31/2024) 2 mL 0 metFORMIN ER (GLUCOPHAGE XR) 500 mg 24 hr tablet Take 2 tablets by mouth two times a day. 360 tablet 1 cholecalciferol, Vitamin D3, (VITAMIN D3) 1,250 mcg (50,000 unit) cap capsule TAKE 1 CAPSULE BY MOUTH ONE TIME A WEEK. (Patient not taking: Reported on 07/31/2024) 12 capsule 1 cholecalciferol, vitamin D3, (VITAMIN D3 ORAL) Take 1 tablet by mouth once daily. segesterone ac-ethin estradiol (ANNOVERA) 0.15-0.013 mg/24 hour vaginal ring Insert 1 ring vaginally to remain in place for 24 days, then removed for 4 days and stored in case. One ring provides contraception for 13 cycles (1 year) 1 Each 0 ferrous sulfate (IRON ORAL) Take 2 tablets by mouth every other day. acetaminophen (TYLENOL EXTRA STRENGTH) 500 mg tablet Take 1,000 mg by mouth every 8 hours as needed. hydrOXYzine HCl (ATARAX) 10 mg tablet Take 1 tablet by mouth two times a day as needed. 90 tablet 2 No current facility-administered medications for this visit. ROS has more energy but fatigue is there. ROS/Fam Hx pertaining to AOMs: GEN: Fatigue:yes CV: h/o palpitations/cardiac arrhythmia, Chest pain: yes, when her anemia is really bad. 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 Latest Ref Rng & Units 03/02/2024 CMP Sodium 136 - 144 mmol/L 137 Potassium 3.7 - 5.1 mmol/L 3.9 Chloride 98 - 107 mmol/L 103 CO2 22 - 30 mmol/L 24 Glucose 74 - 99 mg/dL 91 BUN 7 - 21 mg/dL 12 Creatinine 0.58 - 0.96 mg/dL 0.77 EGFR >=60 mL/min/1.73m 107 Protein, Total 6.3 - 8.0 g/dL 8.0 Albumin 3.9 - 4.9 g/dL 4.4 Calcium 8.5 - 10.2 mg/dL 9.4 Bilirubin, Total 0.2 - 1.3 mg/dL 0.4 AST 13 - 35 U/L 11 ALT 7 - 38 U/L 11 Alkaline Phosphatase 34 - 123 U/L 107 Cholesterol, Total (mg/dL) Date Value 03/02/2024 176 HDL Cholesterol (mg/dL) Date Value 03/02/2024 44 LDL Cholesterol (mg/dL) Date Value 03/02/2024 114 LDL Cholesterol, Nonfasting (mg/dL) Date Value 08/26/2023 88 Triglyceride (mg/dL) Date Value 03/02/2024 88 Latest Ref Rng & Units 07/24/2024 CBC WBC 3.70 - 11.00 k/uL 11.49 RBC 3.90 - 5.20 m/uL 5.12 Hemoglobin 11.5 - 15.5 g/dL 13.2 Hematocrit 36.0 - 46.0 % 40.3 MCV 80.0 - 100.0 fL 78.7 MCH 26.0 - 34.0 pg 25.8 MCHC 30.5 - 36.0 g/dL 32.8 RDW-CV 11.5 - 15.0 % 18.7 Platelet Count 150 - 400 k/uL 324 MPV 9.0 - 12.7 fL 9.4 Baso% % 0.6 Abs Neut (ANC) 1.45 - 7.50 k/uL 8.02 Abs Lymph 1.00 - 4.00 k/uL 2.60 Abs Freeborn <0.87 k/uL 0.58 Abs Eosin <0.46 k/uL 0.17 Abs Baso <0.11 k/uL 0.07 NRBC /100 WBC 0.0 Vitamin D 25 Hydroxy Date Value Ref Range Status 06/30/2024 32.4 31.0 - 80.0 ng/mL Final Comment: Classification of 25 OH Vitamin D status: Deficiency/Insufficiency: < or = 30 ng/ml. Sufficiency/Optimal Levels: 31-80 ng/mL Toxicity: > 100 ng/mL. Test performed by chemiluminescent immunoassay. 03/02/2024 9.6 (L) 31.0 - 80.0 ng/mL Final TSH (mIU/L) Date Value 11/04/2023 2.160 08/26/2023 3.610 ) Hemoglobin A1C (%) Date Value 03/02/2024 5.0 08/26/2023 4.9 Insulin Date Value Ref Range Status 03/02/2024 18.9 3.0 - 25.0 mU/L Final Assessment/Plan: Sherin Sandoval is a 28 year old yo with Class III obesity who presented today for follow up for supervised weight loss to treat and prevent related co-morbidities. (R53.81, R53.83) Malaise and fatigue (primary encounter diagnosis) (G47.33) JOSEPH (obstructive sleep apnea) (G25.81) RLS (restless legs syndrome) (E88.819) Insulin resistance (R03.0) Elevated blood pressure reading without diagnosis of hypertension (E55.9) Vitamin D deficiency (E78.1) Hypertriglyceridemia (E03.9) Hypothyroidism, unspecified type (E66.813, Z68.43) Class 3 severe obesity with body mass index (BMI) of 50.0 to 59.9 in adult, unspecified obesity type, unspecified whether serious comorbidity present -awaiting CPAP therapy for JOSEPH - follow up with sleep medicine as scheduled- JOSEPH and RLS - Start Zepbound today - instructions reviewed - tracking reviewed and portion sizes reviewed- importance of measuring and tracking - VIT D- recheck and continue PO OTC -discussed if needs soda changing to zero sugar - Low carb, high protein, whole foods - follow up with sleep medicine as scheduled - accepts nutrition consult - call with reschedule - doing well with METFORMIN 1000mg XR BID- continue at this time -will stop at next visit if doing well with zepbound - follow up with heme as scheduled for anemia - PCP to manage synthroid for hypothyroidism - pt has been in a comprehensive weight loss program for >6months- has focused on nutrition, movement, portion control. Pt is good candidate to start medication at this time. Pt will also meet with wallcovering hanger at [facility]. Will call for appt. - An overall goal of 150-200 minutes per week of exercise has been effective in weight loss and maintenance. Prescription instructions reviewed with patient as applicable. Potential red flag symptoms discussed with the patient. Reviewed appropriate action plan to take if red flag symptoms occur. Patient agreeable to treatment plan. Follow up in 8 weeks I spent a total of 35minutes on the date of the service which included preparing to see the patient, [id number]-sj-jgar patient care, completing clinical documentation, obtaining and/or reviewing separately obtained history, performing a medically appropriate examination, counseling and educating the patient/family/caregiver, and ordering medications, tests, or procedures. Vikki Bell MD, FACOG, DABOM documented in this encounter [facility] 08-31-2024 Note [facility] 08-17-2024 Telephone encounter Note Prescription Refill Information The patient has been identified by name and date of : Yes Caregiver verified no other encounters exist for this prescription request: Yes Caregiver confirmed with patient/requestor that no other refills are due, in the near future, with this provider at this time: Yes The last office visit in the department: 10/22/23 Does the patient have a future office visit with this provider/department: No Requested Prescriptions Pending Prescriptions Disp Refills busPIRone (BUSPAR) 15 mg tablet 270 tablet 0 Sig: Take 1 tablet by mouth three times a day. Trenton Jeffrey LPN August 17, 2024 11:23 AM [facility] 08-17-2024 Miscellaneous Notes Prescription Refill Information The patient has been identified by name and date of : Yes Caregiver verified no other encounters exist for this prescription request: Yes Caregiver confirmed with patient/requestor that no other refills are due, in the near future, with this provider at this time: Yes The last office visit in the department: 10/22/23 Does the patient have a future office visit with this provider/department: No Requested Prescriptions Pending Prescriptions Disp Refills busPIRone (BUSPAR) 15 mg tablet 270 tablet 0 Sig: Take 1 tablet by mouth three times a day. Trenton Jeffrey LPN August 17, 2024 11:23 AM documented in this encounter [facility] 08-17-2024 Telephone encounter Note Prescription Refill Information The patient has been identified by name and date of : Yes Caregiver verified no other encounters exist for this prescription request: Yes Caregiver confirmed with patient/requestor that no other refills are due, in the near future, with this provider at this time: Yes The last office visit in the department: 10/22/23 Does the patient have a future office visit with this provider/department: No Requested Prescriptions Pending Prescriptions Disp Refills levothyroxine (SYNTHROID) 50 mcg tablet 90 tablet 1 Sig: Take 1 tablet by mouth once daily. FLUoxetine (PROZAC) 20 mg capsule 90 capsule 1 Sig: Take 1 capsule by mouth once daily. Trenton Jeffrey LPN August 17, 2024 11:21 AM [facility] 08-17-2024 Miscellaneous Notes Prescription Refill Information The patient has been identified by name and date of : Yes Caregiver verified no other encounters exist for this prescription request: Yes Caregiver confirmed with patient/requestor that no other refills are due, in the near future, with this provider at this time: Yes The last office visit in the department: 10/22/23 Does the patient have a future office visit with this provider/department: No Requested Prescriptions Pending Prescriptions Disp Refills levothyroxine (SYNTHROID) 50 mcg tablet 90 tablet 1 Sig: Take 1 tablet by mouth once daily. FLUoxetine (PROZAC) 20 mg capsule 90 capsule 1 Sig: Take 1 capsule by mouth once daily. Trenton Jeffrey LPN August 17, 2024 11:21 AM documented in this encounter [facility] 07-31-2024 Note [facility] 07-31-2024 History of Present illness Narrative Sherin Sandoval 1995 HPI: The patient is a 28-year-old female with a past medical history as outlined below. Initial consultation: History HMB: Menarche ~[age]. Recalls menses have always been irregular and heavy. Passed clots. Often could use more than one pad/tampon per hour. Previous 1 unit RBC transfusion. Had received parenteral iron at [facility]. First iron carboxymaltose. Second iron sucrose. Has been on oral iron for a long time. Tolerates well. Takes with OJ. Tries to eat iron rich foods. Recently underwent hysteroscopic uterine polypectomy and placement of progestin IUD for HMB. Getting bad cramping. Still having bleeding, but slowed down. Taking IBU and Tylenol. Feels fatigued all the time. I'm exhausted. History of epistaxis: No h/o nosebleeds. History of gingival bleeding: Occasional gum bleeding if brushing or flossing. History of dental extraction: Both bottom wisdom teeth and two molars on left upper extracted. No excessive bleeding. Previous postoperative bleeding: Tonsillectomy about age 23. No post operative bleeding. Renal stone Previous excessive postdelivery bleeding: No. Tubal age 2017; MTX. Unexplained bruising: All the time. Family history of bleeding disorder: None known. Presents for ongoing hematologic management. Interim history: Received IV iron last dose 06/19/24. Feels much better. Energy level improved. Recent flu A+, no residual symptoms. Generalize abd pains. Rotates between constipation and diarrhea has no seen GI. Referral placed today. Otherwise denies new issues. Reviewed s/s of iron deficiency today. PAST MEDICAL HISTORY Diagnosis Date 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 attack Hypothyroidism Iron deficiency anemia Iron malabsorption 06/03/2024 Kidney stones Menorrhagia with irregular cycle 06/03/2024 PAST SURGICAL HISTORY Procedure Laterality Date CATH/STENT RENAL DRAINAGE EXTRACTION ERUPTED TOOTH/EXR wisdom teeth HYSTEROSCOPY, DIAGNOSTIC (SEPARATE 12/20/2023 hysteroscopy dilation and curettage, polypectomy, liletta insertion LITHOTRIPSY XTRCORP SHOCK WAVE X 2 REMOVAL OF HEEL SPUR Right TONSILLECTOMY HX metFORMIN ER (GLUCOPHAGE XR) 500 mg 24 hr tablet Take 2 tablets by mouth two times a day. busPIRone (BUSPAR) 15 mg tablet Take 1 tablet by mouth three times a day. cholecalciferol, vitamin D3, (VITAMIN D3 ORAL) Take 1 tablet by mouth once daily. ferrous sulfate (IRON ORAL) Take 2 tablets by mouth every other day. acetaminophen (TYLENOL EXTRA STRENGTH) 500 mg tablet Take 1,000 mg by mouth every 8 hours as needed. FLUoxetine (PROZAC) 20 mg capsule Take 1 capsule by mouth once daily. levothyroxine (SYNTHROID) 50 mcg tablet Take 1 tablet by mouth once daily. hydrOXYzine HCl (ATARAX) 10 mg tablet Take 1 tablet by mouth two times a day as needed. CPAP/BIPAP/OTHER autoCPAP 5-[address] [facility] tirzepatide, weight loss (ZEPBOUND) 2.5 mg/0.5 mL pen injector Inject 2.5 mg subcutaneously one time a week. (Patient not taking: Reported on 07/31/2024) cholecalciferol, Vitamin D3, (VITAMIN D3) 1,250 mcg (50,000 unit) cap capsule TAKE 1 CAPSULE BY MOUTH ONE TIME A WEEK. (Patient not taking: Reported on 07/31/2024) segesterone ac-ethin estradiol (ANNOVERA) 0.15-0.013 mg/24 hour vaginal ring Insert 1 ring vaginally to remain in place for 24 days, then removed for 4 days and stored in case. One ring provides contraception for 13 cycles (1 year) ALLERGIES No Known Allergies Social History Tobacco Use Smoking status: Never Passive exposure: Never Smokeless tobacco: Never Vaping Use Vaping status: Never Used Substance Use Topics Alcohol use: Not Currently Drug use: Never FAMILY HISTORY Problem Relation Age of Onset Breast Cancer Mother other (hysterectomy) Mother Cervical Cancer Mother other (throat cancer) Father No Known Problems Sister No Known Problems Sister Diabetes Brother No Known Problems Brother No Known Problems Brother Cervical Cancer Maternal Grandmother Dementia Maternal Grandfather REVIEW OF SYSTEMS: Constitutional: No episodes of fever and night sweats. Normal appetite. All systems reviewed on 07/31/2024 with pertinent positives and negatives as outlined in the interval history. PHYSICAL EXAM: Vitals: Blood pressure 133/83, pulse 88, temperature 37.1 C (98.8 F), temperature source Temporal, weight 132.5 kg (292 lb), last menstrual period 04/29/2024, SpO2 100%. Well-appearing and in no acute distress. EYES: Sclerae are anicteric bilaterally. CARDIOVASCULAR: Rhythm is regular. ABDOMEN: The abdomen is nondistended. No splenomegaly or hepatomegaly. No tenderness. Extremities: No swelling or edema. SKIN: No jaundice. I have performed the physical exam today (07/31/2024) and have edited the note to correlate with current findings. LABS: Latest Ref Rng 12/05/2023 01/27/2024 Ristocetin Co-Factor 42 - 146 % 23 (L) 29 (L) GPIbM Activity 44 - 156 % 41 (L) 46 Collagen Binding (CBA) 41 - 161 % 51 62 Factor VIII:C Assay 50 - 173 % 96 86 Von Willebrand Ag 50 - 173 % 57 47 (L) Ristocetin/VWF Ratio >=0.5 0.4 (L) 0.6 CBA/VWF Ratio >=0.6 0.9 1.3 FVIII/VWF Ratio >=0.5 1.7 1.8 Von Willebrand Mult Assay of von Willebrand multimers was performed by an agarose gel electrophoresis followed by immunofixation with anti-von Willebrand factor antiserum. There is a normal multimer intensity with a normal distribution of multimer sizes. Reviewed by Elena Roman M.D., Ph.D. Assay of von Willebrand multimers was performed by an agarose gel electrophoresis followed by immunofixation with anti-von Willebrand factor antiserum. PT Sec <13.1 sec 10.2 10.4 PT INR 0.9 - 1.3 1.0 1.0 APTT 23.0 - 32.4 sec 24.1 29.9 ASSESSMENT/PLAN: (D50.0) Iron deficiency anemia due to chronic blood loss (primary encounter diagnosis) (K90.9) Iron malabsorption (N92.1) Menorrhagia with irregular cycle (Z86.2) History of anemia due to vitamin B12 deficiency Assessment: -The patient is a 28-year-old female with a history HMB. -VWD ruled out. - received IV iron sucrose 200mg x5 last dose on 06/19/2024, improvement in Hgb,Iron studies Plan: -Continue oral iron since well tolerated. -Recheck B12 at that time as well (h/o B12 deficiency and remains on metformin). -Follow up with gynecology. - Repeat labs Q3 months (standing orders) - OV in 6 months with labs prior - referral to GI for changes in bowel habits. Intermittent abd pains. William Macedo APRN.[employer] I spent a total of 30 minutes on the date of the service which included preparing to see the patient, [id number] patient care, completing clinical documentation, obtaining and/or reviewing separately obtained history, and counseling and educating the patient/family/caregiver. Portions of this note including HPI, ROS, impression/plan may have been copied forward as to provide important historical information essential in contributing to medical decision making. Documentation has been reviewed and edited as necessary to support clinical decision making for today's visit and to reflect my own independent evaluation of this patient. documented in this encounter [facility] 07-06-2024 Instructions Jolene Ozuna APRN.JIM - 07/06/2024 3:16 PM EST Images from the original note were not included. Sleep Apnea What is sleep apnea? Sleep apnea is a serious sleep disorder that occurs when a person s breathing is interrupted during sleep. People with untreated sleep apnea stop breathing repeatedly during their sleep, sometimes hundreds of times during the night. There are two types of sleep apnea: obstructive and central. Obstructive sleep apnea (JOSEPH) is the more common of the two. Obstructive sleep apnea occurs as repetitive episodes of complete or partial upper airway blockage during sleep. During an apnea episode, the diaphragm and chest muscles work harder as the pressure increases to open the airway. Breathing usually resumes with a loud gasp or body jerk. These episodes can interfere with sound sleep, reduce the flow of oxygen to vital organs, and cause heart rhythm irregularities. In central sleep apnea (CSA), the airway is not blocked but the brain fails to signal the muscles to breathe due to instability in the respiratory control center. Central apnea is named as such because it is related to the function of the central nervous system. Who gets sleep apnea? Sleep apnea occurs in about 25 percent of men and nearly 10 percent of women. Sleep apnea can affect people of all ages, including babies and children and particularly people over the age of forty and those who are overweight. Certain physical traits and clinical features are common in patients with obstructive sleep apnea. These include excessive weight, large neck, and structural abnormalities reducing the diameter of the upper airway, such as nasal obstruction, a low-hanging soft palate, enlarged tonsils, or a small jaw with an overbite. The figures below illustrate the upper airway in normal sleep: (A) person is lying on back, face up, and (B) in obstructive sleep apnea. The arrows indicate complete obstruction in the back of the throat. Normal (A) Sleep apnea (B): What causes sleep apnea? Obstructive sleep apnea is caused by a blockage of the airway, usually when the soft tissues in the rear of the throat collapse during sleep. Central sleep apnea is usually observed in patients with central nervous system dysfunction, such as following a stroke or in patients with neuromuscular diseases like amyotrophic lateral sclerosis. It is also common in patients with heart failure and other forms of cardiac and pulmonary disease. What are the symptoms of sleep apnea? Often the first signs of obstructive sleep apnea are recognized not by the patient, but by the bed partner. Many of those affected have no sleep complaints. The most common symptoms of JOSEPH include: Snoring Daytime sleepiness or fatigue Restlessness during sleep Sudden awakenings with a sensation of gasping or choking Dry mouth or sore throat upon awakening Intellectual impairment, such as trouble concentrating, forgetfulness, or irritability Night sweats Sexual dysfunction Headaches People with central sleep apnea more often report recurrent awakenings or insomnia, although they may also experience a choking or gasping sensation with sudden awakenings. Symptoms in children may not be as obvious and include: Poor school performance Sluggishness or sleepiness, often misinterpreted as laziness in the classroom Daytime mouth breathing and swallowing difficulty Inward movement of the ribcage when inhaling Unusual sleeping positions, such as sleeping on the hands and knees, or with the neck hyper-extended Excessive sweating at night Learning and behavioral disorders Bedwetting What are the effects of sleep apnea? If left untreated, sleep apnea can result in a number of health problems including hypertension, stroke, arrhythmias, cardiomyopathy (enlargement of the muscle tissue of the heart), congestive heart failure, diabetes, and heart attacks. In addition, untreated sleep apnea may be responsible for job impairment, work-related accidents, and motor vehicle crashes as well as academic underachievement. How is sleep apnea diagnosed? The diagnosis of sleep apnea is relatively straightforward, based on sleep history and an overnight sleep study called a polysomnogram. Polysomnogram is performed in a sleep laboratory under the direct supervision of a trained technologist. During the test, a variety of body functions, such as the electrical activity of the brain, eye movements, muscle activity, heart rate, breathing patterns, air flow, and blood oxygen levels are recorded at night during sleep. After the study is completed, the number of times breathing is impaired during sleep is tallied and the severity of sleep apnea is graded. In some cases, a multiple sleep latency test is performed on the day after the overnight test to measure the speed of falling asleep. In this test, patients are given several opportunities to fall asleep during the course of a day when they normally would be awake. If you have symptoms of sleep apnea, your doctor may ask you to have a sleep evaluation in a sleep disorder center. What are the treatments for sleep apnea? Conservative treatments: In mild cases of sleep apnea, conservative therapy may be all that is needed. Overweight persons can benefit from losing weight. Even a ten percent weight loss can reduce the number of apneic events for most patients. Individuals with apnea should avoid the use of alcohol and sleeping pills, which make the airway more likely to collapse during sleep and prolong the apneic periods. In some patients with mild sleep apnea, breathing pauses occur only when they sleep on their backs. In such cases, using pillows and other devices that help them sleep in a side position may be helpful. People with sinus problems or nasal congestion (such people are more likely to experience sleep apnea) should use nasal sprays or breathing strips to reduce snoring and improve airflow for more comfortable nighttime breathing. Avoiding sleep deprivation is important for all patients with sleep disorders. Mechanical therapy: Continuous Positive Airway Pressure (CPAP) is the preferred initial treatment for most people with obstructive sleep apnea. With CPAP, patients wear a mask over their nose and/or mouth. An air blower forces air through the nose and/or mouth. The air pressure is adjusted so that it is just enough to prevent the upper airway tissues from collapsing during sleep. The pressure is constant and continuous. CPAP prevents airway closure while in use, but apnea episodes return when CPAP is stopped or it is used improperly. Other styles and types of positive airway pressure devices are available for people who have difficulty tolerating CPAP. These include Bilevel Positive Airway Pressure (BiPAP), Auto Positive Airway Pressure (AutoPAP), Auto/Adaptive Servo-Ventilation (ASV), etc Oral appliances: For patients with mild/moderate sleep apnea, dental appliances or oral mandibular advancement devices that prevent the tongue from blocking the throat and/or advance the lower jaw forward can be made. These devices help keep the airway open during sleep. A sleep specialist and quality improvement specialist (with expertise in oral appliances for this purpose) should jointly determine if this treatment is best for you. Surgery: Surgical procedures may help people with sleep apnea. There are many types of surgical procedures, some of which are performed as outpatient procedures. Surgery is reserved for people who have excessive or malformed tissue obstructing airflow through the nose or throat, such as a deviated nasal septum, markedly enlarged tonsils, or small lower jaw with an overbite that causes the throat to be abnormally narrow. These procedures are typically performed after sleep apnea has failed to respond to conservative measures and a trial of positive airway pressure treatment. Types of surgery include: Somnoplasty: A minimally invasive procedure that uses radiofrequency energy to reduce the soft tissue in the upper airway. Uvulopalatopharyngoplasty (UPPP): A procedure that removes soft tissue on the back of the throat and palate, increasing the width of the airway at the throat opening. Maxillary/Mandibular advancement surgery: A surgical correction of certain facial abnormalities or throat obstructions that contribute to sleep apnea. This is an invasive procedure that is reserved for patients with severe sleep apnea with head-face abnormalities. Nasal surgery: Correction of nasal obstructions, such as a deviated septum. Hypoglossal nerve stimulator: FDA approved 2013. (Implant that sends a lead that goes to bottom of tongue to stimulate it forward out of the area of the back of the throat) Resources: [facility] Guide to Sleep Disorders by Jaci Mosher DO National Sleep Foundation [address] [place] [address] [address] [facility] [id number] [email or web address] [place] [employer] [address] [place] [address], [address] [place], [place] [email or web address] - Will start Auto CPAP 5-15 cmH2O with a mask per your preference. - I will have a prescription sent to a [employer]) company - [employer] [place] who will be calling you in the next 1-2 weeks or so. Please call them directly or us if you do not hear from them in this time frame. - You should be eligible for new supplies approximately every 3-6 months, depending on your insurance coverage. - If your mask doesn't fit well, call the [employer] company before 30 days are up to get a new mask without an additional charge. - Insurance requires regular usage and periodic office follow ups for PAP therapy, to continue to cover supplies. - Follow up in 2 months PAP Supply Guidelines Below are the guidelines for reordering your supplies. You will be responsible for your deductible, co-payments, and out of pocket expenses. Item Medicare & Commercial Insurance Medicaid & HCAP Nasal Mask (no headgear) 1 every 3 months 1 per year Nasal Mask Cushion 1 every month 2 per year Full Face Mask (no headgear) 1 every 3 months 1 per year Full Face Mask Cushion 1 every month *Self-Pay Nasal Pillows 2 every month 2 per year Headgear 1 every 6 months 1 per year Chin Strap 1 every 6 months 2 per year Tubing 1 every 3 months 1 per year Filters: Reusable 1 every 6 months 4 per year Filters: Disposable 2 every month 1 per month Humidifier Chamber(disposable) 1 every 6 months *Self-Pay documented in this encounter [facility] 07-06-2024 History of Present illness Narrative Images from the original note were not included. [facility] New Patient Evaluation PATIENT NAME: Sherin Sandoval DATE OF SERVICE: July 05, 2024 CONSULTING PROVIDER: Vikki [address] [facility] [address] REASON FOR CONSULT: Vikki Sandoval sends the patient for an opinion about JOSEPH, fatigue, elevated BP, obesity. My findings and recommendations will be transmitted electronically via shared medical record to the consulting provider. HPI: Sherin Sandoval is a 28 year old female. Sleep-related history: new dx of at least mild JOSEPH. Sleep quality varies, has trouble falling asleep, reports a long hx of sleep issues--some improvement now that on meds for anxiety. SLEEP-WAKE SCHEDULE Bedtime: 8-9 PM. She has a hard time falling asleep. Time to fall asleep: 1 hr on a good night depends on anxiety or fidgety or hot, bad night is many hours Wake time: 630 AM if takes her to work or 8 AM if not After falling asleep: she wakes up 0 time(s) per night usually but then 1-2x per week she wakes up many times and does not know the reason for waking up. On weekends, she maintains the same sleep schedule. Average total sleep time (in a 24 hour period): 8 hours. SLEEP-RELATED DETAILS Preferred sleep position: side or prone. Avoids sleeping supine in order to prevent sleep paralysis. Breathing disturbances and other behaviors during sleep: snoring, stopping breathing during sleep, moving around a lot, frequent leg movements, and acting out dreams. Bruxism: Yes clenches GERD or aspiration: No Waking up with heart pounding or racing: Yes with nightmare Anxiety or rumination: Yes She reports having an urge to move the legs. The urge to move the legs only occurs in the evening or nighttime. The urge to move the legs begins or worsens during periods of rest or inactivity (e.g. lying or sitting). The urge to move the legs is partially or totally relieved by movements such as walking or stretching, at least as long as the activity continues. The urge to move the legs occurs 3-4 nights per week and began as long as she can remember. There is history of iron deficiency or anemia. She has been told that she has leg kicking during sleep. She just has iron infusions. Is on on Vit D supplement. The patient reports having had the following: Acting out dreams. Frequency: every couple of months, Time of night:2-3 AM, Dream content: fleeing Night terrors. Frequency: every other week, Time of night 2-3 AM Excessive daytime sleepiness / fatigue is a problem. Excessive Daytime sleepiness/fatigue has been a problem since 2017 or 2018, and has gotten worse. There is no history of a viral illness or significant head injury prior to the start of daytime sleepiness. She does report sleep paralysis (avoids sleeping on her back to prevent this) -- last time was a few months ago, occurs every other month Sleep-related hallucinations (auditory) -- with the sleep paralysis Cataplexy? -- after a strong emotion she is very sleepy and has to nap, thinks she might get knee weakness WAKE-RELATED DETAILS She does not work. She does have difficulty with memory (word finding) or concentration. She denies falling asleep or dozing off when driving. She does take naps. Frequency: 1-2x per week, Duration: 1 hr. Naps are not refreshing. She does not drink caffeinated beverages. She has lost 25 pounds since 10 mos. Patient Questionnaires Sleep Scores 07/05/2024 Sleep Questions Reason for visit: Sleep apnea On average, hours of sleep in 24 hours: 8 Accidents or near accidents due to drowsy drivin 07/05/2024 [place] Sleepiness Scale Score 7 (No clinically significant daytime sleepiness) 07/05/2024 PROMIS CAT Sleep Disturbance PROMIS Sleep Disturbance T-Score 54 (within normal limits) PROMIS Sleep Disturbance Percentile 34 07/05/2024 Restless Leg Syndrome Score 17 (Moderate symptoms) 07/05/2024 PHQ-9 Score 2 05/16/2024 PROMIS Global Health - (T-Scores - the mean of general population = 50. Five points is a clinically meaningful difference.) Physical T-Score 44.9 Mental T-Score 48.3 PAST TREATMENTS: None PRIOR SLEEP STUDIES: A Home Sleep Test (HST) performed on 05/26/24 revealed an AHI of 7.6; supine index of 9.7; and a minimum oxygen saturation of 89%. OTHER RELEVANT LABS AND STUDIES: Latest Reference Range & Units 06/30/24 09:56 Vitamin D 25 Hydroxy 31.0 - 80.0 ng/mL 32.4 Latest Reference Range & Units 03/10/24 08:18 Vitamin B12 232 - 1,245 pg/mL 437 Latest Reference Range & Units 05/11/24 10:16 Ferritin 14.7 - 205.1 ng/mL 11.5 (L) Iron 41 - 186 ug/dL 31 (L) TIBC 232 - 386 ug/dL 419 (H) Transferrin Saturation 15.0 - 57.0 % 7.4 (L) (L): Data is abnormally low (H): Data is abnormally high PAST MEDICAL HISTORY Diagnosis Date 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 attack Hypothyroidism Iron deficiency anemia Iron malabsorption 06/03/2024 Kidney stones Menorrhagia with irregular cycle 06/03/2024 PAST SURGICAL HISTORY Procedure Laterality Date CATH/STENT RENAL DRAINAGE EXTRACTION ERUPTED TOOTH/EXR wisdom teeth HYSTEROSCOPY, DIAGNOSTIC (SEPARATE 12/20/2023 hysteroscopy dilation and curettage, polypectomy, liletta insertion LITHOTRIPSY XTRCORP SHOCK WAVE X 2 REMOVAL OF HEEL SPUR Right TONSILLECTOMY HX ACTIVE PROBLEM LIST Iron Deficiency Anemia Hypothyroidism Iron Malabsorption Menorrhagia With Irregular Cycle Obstructive Sleep Apnea Rls (Restless Legs Syndrome) Allergies As of Date: 07/06/2024 (No Known Allergies) Fully Assessed 07/06/2024 CURRENT MEDICATIONS: tirzepatide, weight loss (ZEPBOUND) 2.5 mg/0.5 mL pen injector Inject 2.5 mg subcutaneously one time a week. metFORMIN ER (GLUCOPHAGE XR) 500 mg 24 hr tablet Take 2 tablets by mouth two times a day. busPIRone (BUSPAR) 15 mg tablet Take 1 tablet by mouth three times a day. cholecalciferol, Vitamin D3, (VITAMIN D3) 1,250 mcg (50,000 unit) cap capsule TAKE 1 CAPSULE BY MOUTH ONE TIME A WEEK. cholecalciferol, vitamin D3, (VITAMIN D3 ORAL) Take by mouth. segesterone ac-ethin estradiol (ANNOVERA) 0.15-0.013 mg/24 hour vaginal ring Insert 1 ring vaginally to remain in place for 24 days, then removed for 4 days and stored in case. One ring provides contraception for 13 cycles (1 year) ferrous sulfate (IRON ORAL) Take 2 tablets by mouth every other day. acetaminophen (TYLENOL EXTRA STRENGTH) 500 mg tablet Take 1,000 mg by mouth every 8 hours as needed. FLUoxetine (PROZAC) 20 mg capsule Take 1 capsule by mouth once daily. levothyroxine (SYNTHROID) 50 mcg tablet Take 1 tablet by mouth once daily. hydrOXYzine HCl (ATARAX) 10 mg tablet Take 1 tablet by mouth two times a day as needed. CPAP/BIPAP/OTHER autoCPAP 5-[address] [facility] Prior Hypersomnia/Narcolepsy Medications (20 years) No data to display Prior RLS Medications (last 20 years) No data to display Prior Insomnia Medications (last 20 years) 02/20/2024 00:00 Insomnia Medications fluoxetine HCl 20 mg DAILY ORAL Details Outpatient prescription Medication marked as long-term Review of Systems Constitutional: Positive for fatigue. Negative for recent unintentional weight change. HENT: Negative for congestion. Cardiovascular: Negative for palpitations. Gastrointestinal: Negative for heartburn. Neurological: Positive for headaches (with naps) and memory loss. Psychiatric: Negative for depressed mood. Meds helping anxiety SOCIAL HISTORY: Social History Tobacco Use Smoking status: Never Passive exposure: Never Smokeless tobacco: Never Vaping Use Vaping status: Never Used Substance Use Topics Alcohol use: Not Currently Drug use: Never FAMILY HISTORY: FAMILY HISTORY Problem Relation Age of Onset Breast Cancer Mother other (hysterectomy) Mother Cervical Cancer Mother other (throat cancer) Father No Known Problems Sister No Known Problems Sister Diabetes Brother No Known Problems Brother No Known Problems Brother Cervical Cancer Maternal Grandmother Dementia Maternal Grandfather There is a family history of: Sleep apnea. Relative: aunt and uncle PHYSICAL EXAMINATION: Vital Signs: BP 115/79 (BP Site: Left Arm, BP Position: Sitting) Pulse 80 Wt 128.9 kg (284 lb 3.2 oz) LMP 04/29/2024 (Approximate) SpO2 98% BMI 48.40 kg/m PHYSICAL EXAM: General appearance: pleasant, NAD Mental status: alert and oriented, able to provide own history Constitutional: obese Skin: No visible rashes on exposed skin Neuro: No focal deficits observed, no tremors ENT : Posterior airspace: Bey tongue position 3, retrognathia absent. Overbite absent. High arched palate present. Tongue scalloping/ridging present. IMPRESSION/PLAN: G47.33 Obstructive sleep apnea (primary encounter diagnosis) G25.81 RLS (restless legs syndrome) F41.1 Generalized anxiety disorder F51.04 Chronic insomnia G47.8 Sleep paralysis G47.52 Dream enactment behavior F51.4 Night terrors Sherin Sandoval is a delightful 28 year old female with at least mild JOSEPH (LESLIE 7.6), secondary dx of CHARLINE, chronic insomnia, RLS, sleep paralysis, dream enactment behavior, night terrors. She has had sleep paralysis since childhood, sleep related hallucinations along with it--she avoids supine sleep because that position is when she has paralysis; paralysis is improved since being on meds for anxiety/panic, as are night terrors and SALO. She has a hx of significant VALERIE with low iron stores, has had multiple rounds of IV iron--the low iron stores will contribute to her RLS, as will untreated JOSEPH. We reviewed her HSAT results, discussed that home studies underestimate the severity of JOSEPH. Discussed JOSEPH, risks of untreated JOSEPH, treatment options. She is ready and willing to use PAP therapy. - Will start Auto CPAP 5-15 cmH2O with a mask per your preference . - I will have a prescription sent to a [employer] company - [facility] who will be calling you in the next 1-2 weeks or so. Please call them directly or us if you do not hear from them in this time frame. - You should be eligible for new supplies approximately every 3-6 months, depending on your insurance coverage. - If your mask doesn't fit well, call the [employer] company before 30 days are up to get a new mask without an additional charge. - Insurance requires regular usage and periodic office follow ups for PAP therapy, to continue to cover supplies. - Follow up in 2 months - will look to see if we can improve insomnia, parasomnias with treatment of JOSEPH; will revisit all of the above at follow up to determine if other treatment is needed Jolene Ozuna APRN.[employer] documented in this encounter [facility] 07-06-2024 Note [facility] 06-30-2024 Instructions Vikki Epstein MD - 06/30/2024 10:19 AM EST Images from the original note were not included. Nutrition Reminders: NO NAKED CARBS!! Protein >= Carbs for each meal (if you are going to eat 50g carbs for lunch you should eat 50g protein or more). If you do not eat your carbs for lunch you do not get to save them for dinner- you use them or lose them. Balance your Protein between meals. Unless told otherwise your Minimum protein each day is 30grams per meal but don t be afraid to eat more. Focus on WHOLE FOODS if you can as your Gut Microbiome will benefit and you will feel more satisfied - the only caviot to this is protein shakes if needed. Water intake should be a minimum of 64oz per day- but more is better (to an extent) unless you have a medical condition that requires you to keep it to a minimum. Nothing is off limits- this is not about restricting yourself- this about learning what your body can have and still respond well to and learning how to balance food and still feel good. Track your food, weigh your food, measure your portion sizes as most people underestimate their food by approximately 40%. You should be tracking your Carbohydrates and Protein daily. It s ok if you had a bad day- write it down and move on! Weigh yourself daily or at least 5 times per week, it will help to keep you accountable. If you are hungry- think about your stress level, your sleep (did you get 7.5-9hrs?) and your protein consumption- if you did not meet your goals then those could be contributing to your hunger. During weight loss phase it is ok to use two protein shakes per day and eating one meal along with it - studies have shown you will lose more weight and keep it off. Take a multivitamin daily Sit less Move more- Exercise including resistance training is very important for your health and if you are not getting routine exercise right now there will come a point when it will become an important piece of this process. Creating a Mindful Eating Environment: 10 Mindless Eating Solutions If you're looking for easier ways to make healthy changes to your diet and lifestyle, consider these simple mindless eating solutions for staying on-track with nutrition: Serve Salad and Vegetables First. Before bringing out your main dish, serve salad and vegetables first to ensure you're eating enough of this important food group. This strategy will also help you eat less of the rest of your dish which is likely higher in calories, etc. Serve Your Main [facility] on the Stove or Counter. Studies show that we're likely to eat less if our food is placed on the stove or counter rather than right in front of us. Eat on Smaller Plates. Similar to the strategy mentioned above, studies show that you're likely to consume less food if you're eating from a smaller plate. This is likely due to the increase of smaller portion sizes. Turn off Your Television. Watching television as you eat can be highly distracting, and it affects your ability to eat mindfully. For example: you're less likely to notice when you're full, so you might consume excess calories. Keep Mostly Water On-hand. Calories from drinks can add up quickly, especially in fruit juices, alcohol and soft drinks. By minimizing the amounts of those drinks on-hand, you're more likely to consume water when you're thirsty - and water has amazing health benefits! Keep Your Kitchen Organized. An organized refrigerator, counter and cabinet space makes you more likely to find and choose the foods which are healthiest for you. On the contrary, a messy kitchen space may make you more apt to grab the first item you see. Pre-cut Your Fruits and Vegetables. Let's admit it: We're more likely to put off eating produce if we have to go through the burden of cutting it first. Pre-cut fruits and vegetables will eliminate this extra step. Have at Least Six Single Servings of Lean Protein On-hand. This includes lean meats such as turkey and chicken, yogurt, eggs, nuts, beans and legumes. By having plenty of lean protein on-hand, you can better manage your appetite and hunger levels. Keep All Snack Foods in One Inconvenient Cupboard. You're less likely to reach for unhealthy snack foods if they're not all gazing up at you from plain sight! Keep Only a Fruit Bowl on Your Counter. This way, if you're one to grab foods based off of their availability, you'll reach for healthier fruits rather than less healthy snack foods. https://www.obesityaction.org/comm unity/news/community-news/create-a -pqirhzk-xfeuqa-xrakbneeujl/ https://[email or web address] tionsource/auoxwvg-awnhsf-daaas/ [place] healthy Eating Plate: Make most of your meal vegetables and fruits - of your plate: Aim for color and variety, and remember that potatoes don t count as vegetables on the Healthy Eating Plate because of their negative impact on blood sugar. Go for whole grains - of your plate: Whole and intact grains--whole wheat, barley, wheat berries, quinoa, oats, brown rice, and foods made with them, such as whole wheat pasta--have a milder effect on blood sugar and insulin than white bread, white rice, and other refined grains. Protein power - of your plate: Fish, poultry, beans, and nuts are all healthy, versatile protein sources--they can be mixed into salads, and pair well with vegetables on a plate. Limit red meat, and avoid processed meats such as caceres and sausage. Healthy plant oils - in moderation: Choose healthy vegetable oils like olive, canola, soy, corn, sunflower, peanut, and others, and avoid partially hydrogenated oils, which contain unhealthy trans fats. Remember that low-fat does not mean healthy. Drink water, coffee, or tea: Skip sugary drinks, limit milk and dairy products to one to two servings per day, and limit juice to a small glass per day. Stay active: The red figure running across the Healthy Eating Plate s placemat is a reminder that staying active is also important in weight control. Recipe ideas [email or web address] tionsource/raylpwd-wocweazp-jfec/ 14 Ways to Lower Your Insulin Levels Insulin is an extremely important hormone that s produced by your pancreas. It has many functions, such as allowing your cells to take in sugar from your blood for energy. However, living with chronically high levels of insulin, also known as hyperinsulinemia, can lead to excessive weight gain and serious health problems like heart disease and cancer (1, 2, 3). High blood insulin levels can also cause your cells to become resistant to the hormone s effects. This condition, known as insulin resistance, leads your pancreas to produce even more insulin, creating a precarious cycle (4). If your doctor has advised you to lower your insulin levels, here are 14 things you can do. 1. Follow a lower-carb eating plan Of the three macronutrients -- carbohydrates, protein, and fat -- carbs raise blood sugar and insulin levels the most. Even though carbs are an essential part of most balanced, nutritious diets, lower-carb diets can be very effective for losing weight and managing diabetes (5, 6). Many studies have confirmed the effectiveness of lower-carb eating plans for lowering insulin levels and increasing insulin sensitivity, especially when compared with other diets. People living with health conditions characterized by insulin resistance, such as metabolic syndrome and polycystic ovary syndrome (PCOS), may experience a dramatic lowering of insulin with carb restriction (6, 7, 8). In a smaller study from 2008, people with metabolic syndrome were randomized to receive either a low fat or low carb diet containing 1,500 calories (9). Insulin levels dropped by an average of 50% in the low carb group, compared with 19% in the low fat group. Those on the low carb diet also lost more weight (9). In another small study from 2012, when people with PCOS ate a lower-carb diet containing enough calories to maintain their weight, they experienced greater reductions in insulin levels than when they ate a higher-carb diet (10). Summary While carbohydrates are typically an important part of a balanced diet, lower-carb diets have been shown to increase insulin sensitivity and reduce insulin levels in people living with obesity, diabetes, metabolic syndrome, and PCOS. 2. Consider supplementing with apple cider vinegar Apple cider vinegar (ACV) may help prevent insulin and blood sugar spikes after eating, particularly when consumed with high carbohydrate foods (11). One review found that consuming 2-6 tablespoons of vinegar daily appears to improve glycemic response to carbohydrate-rich meals. It s important to note, however, that this review incorporated studies that used other forms of vinegar in addition to ACV (12). Another review of studies found that consuming vinegar with meals affects both blood glucose and insulin levels. Individuals consuming vinegar with meals had lower blood sugar and insulin levels than those who didn t consume it. But again, this review did not specify ACV (13). A third review of studies from 2020 specifically targeted ACV analyzed its effect on glycemic control in adults (14). The researchers found that consuming ACV significantly decreased fasting blood sugar and HbA1C (a measure of blood sugar over time). However, ACV did not seem to affect fasting insulin levels or insulin resistance (14). Summary Vinegar may help ease high blood sugar and insulin levels after meals, particularly when those meals are high in carbs. However, results are mixed and more research is needed -- especially around apple cider vinegar in particular. 3. Keep an eye on portion sizes Your pancreas releases different amounts of insulin depending on the type of food you eat, but eating a large amount of foods that cause your body to produce extra insulin can eventually lead to hyperinsulinemia. This is of particular concern for people who are already living with obesity and insulin resistance (15). In one small 2017 study, otherwise healthy people classified as having either a normal BMI or a higher BMI each ate meals with different glycemic loads for a few days. Researchers found that while the meals with a higher glycemic load (those with more sugar and carbs) spiked everyone s blood sugar, the blood sugar of individuals with BMIs in the obese category stayed elevated longer (16). Consuming fewer calories has consistently been shown to increase insulin sensitivity and decrease insulin levels in people living with excess weight and obesity, regardless of the type of diet they consume (17, 18, 19, 20). One small study from 2011 analyzed different weight loss methods in 157 people living with metabolic syndrome, which is a group of conditions that include a larger waist circumference and high blood sugar (19). The researchers found that fasting insulin levels decreased by 16% in the group that practiced calorie restriction and 12% in the group that practiced portion control (19, 21). Even though calorie restriction has been shown to ease excess insulin levels, It s a good idea to seek the help of a wallcovering hanger or doctor before making any dietary changes to be sure you aren t missing out on any important macro or micronutrients. Summary Reducing calorie intake can help lower insulin levels in people living with excess weight or obesity who have type 2 diabetes or metabolic syndrome. 4. Lower your intake of all forms of sugar Sugar may very well be the most important ingredient to keep an eye on if you re trying to lower your insulin levels. Diets high in added sugar are associated with insulin resistance and may promote the development of metabolic disease (22). In a small study from 2008, otherwise healthy people were tasked with eating an increased amount of either candy (sugar) or peanuts (fat). The candy group experienced a 31% increase in fasting insulin levels, while the peanut group had a 12% increase (23). In another small study from 2013, otherwise healthy adults consumed jams containing varying amounts of sugar. The adults who consumed high sugar jams saw their insulin levels rise significantly as compared with those who ate the lower-sugar jams (24). Fructose is a type of natural sugar found in table sugar, honey, fruit, corn syrup, agave, and syrup. While some studies have singled out fructose as particularly harmful for blood sugar control and insulin resistance, there isn t enough evidence to suggest fructose is more harmful than other types of sugars when consumed in moderate amounts (25). Indeed, one study found that replacing glucose or sucrose with fructose actually lowered peak post-meal blood sugar and insulin levels, especially in people with prediabetes or type 1 or type 2 diabetes (26). Summary A high intake of sugar in any form has been shown to increase insulin levels and promote insulin resistance if consumed for a length of time. 5. Prioritize physical activity Engaging in regular physical activity can have powerful insulin-lowering effects. Aerobic exercise appears to be very effective at increasing insulin sensitivity in people living with obesity or type 2 diabetes (27, 28, 29). One study looked at the effect of sustained aerobic exercise versus high intensity interval training on metabolic fitness in men with obesity (29). Although both groups experienced improvements in fitness, only the group that performed sustained aerobic activity experienced significantly lower insulin levels (29). There s also research showing that resistance training can help decrease insulin levels in older adults and people who are more sedentary (30, 31). And lastly, combining aerobic and resistance exercise may be the best choice when it comes to positively affecting insulin sensitivity and levels (32, 33). Summary Aerobic exercise, strength training, or a combination of both may help lower insulin levels and increase insulin sensitivity. 6. Try adding cinnamon to foods and beverages Cinnamon is a delicious spice loaded with health-promoting antioxidants. Recent studies suggest that both individuals living with insulin resistance and those with relatively normal insulin levels who supplement with cinnamon may experience enhanced insulin sensitivity and decreased insulin levels (34, 35, 36). In one small, well-designed study, women with PCOS who took 1.5 grams of cinnamon powder daily for 12 weeks had significantly lower fasting insulin and insulin resistance than women who took a placebo (35). In another small, well-designed study, individuals living with type 2 diabetes who took 500 mg of cinnamon powder twice daily for 3 months had lower fasting insulin and insulin resistance than those who took a placebo (34). Improvements in insulin and insulin sensitivity were most pronounced for individuals with higher BMIs (34). It s important to note that there is no recommended dose of cinnamon that has been tested across the board, and not all studies have found that cinnamon helps lower insulin levels or increases insulin sensitivity. Cinnamon s effects may vary from person to person (37, 38). Summary Some studies have found that adding cinnamon to foods or beverages lowers insulin levels and increases insulin sensitivity, but results are mixed. 7. When eating carbs, choose complex carbs While complex carbs are an important part of a nutritious diet, refined or simple carbs don t usually contain a lot of fiber or micronutrients and are digested very quickly. Refined carbs include simple sugars as well as grains that have had the fibrous parts removed. Some examples are cereal with added sugar, highly processed fast foods, foods made with refined flour like certain breads and pastries, and white rice (39). Regularly consuming refined carbs can lead to several health problems, including high insulin levels and weight gain (40, 41). Furthermore, refined carbs have a high glycemic index (GI). The GI is a scale that measures a specific food s capacity to raise blood sugar. Glycemic load takes into account a food s glycemic index and the amount of digestible carbs contained in a serving (42). Some studies comparing foods with different glycemic loads have found that eating a dfia-mvamxgib-kkle food raises insulin levels more than eating the same portion of a wus-ittoumjd-jmxg food, even if the carb contents of the two foods are similar (43, 44). However, other studies comparing oshy-qedgbiqo-soqu and gqsz-lgxaycwt-bhwll diets with jxr-xlwixdxk-xmag and rpa-qmoxbmih-uosqc diets have found no difference in their effects on insulin levels or insulin sensitivity (45, 46). Summary Replacing refined carbs, which are digested quickly and can sharply raise blood sugar, with slower-digesting complex carbs and whole grains may help lower insulin levels. 8. Increase your overall activity level Living an active lifestyle can help reduce insulin levels. A 2005 study of more than 1,600 people found that the most sedentary people (who didn t spend free time engaged in moderate or vigorous activity) were nearly twice as likely to have metabolic syndrome as those who did at least 150 minutes of moderate activity per week (47). Other studies have shown that getting up and walking around, rather than sitting for prolonged periods, can help keep insulin levels from spiking after a meal (48). One study looked at the effect of physical activity on insulin levels in men with extra weight who were at risk for type 2 diabetes. Those who took the most steps per day had the greatest reduction in insulin levels and belly fat compared with those who took the fewest steps (49). Summary Avoiding sitting for prolonged periods and increasing the amount of time you spend walking or doing other moderate activities may help reduce insulin levels. 9. Consider intermittent fasting Intermittent fasting (an eating plan where you have set hours for eating and set hours for fasting during a 24-hour period) has been popping up in headlines recently, specifically around its possible weight loss benefits. Research also suggests intermittent fasting may help reduce insulin levels as effectively as or more effectively than daily calorie restriction (50, 51). A 2019 study compared alternate-day fasting with calorie restriction in adults with extra weight or obesity and insulin resistance (52). Those using alternate-day fasting for 12 months had greater reductions in fasting insulin and insulin resistance than those who restricted their calorie intake, as well as those in the control group (52). Although many people find intermittent fasting beneficial and enjoyable, it doesn t work for everyone and may cause problems in some people. A doctor or wallcovering hanger can help you figure out whether intermittent fasting is right for you and how to do it safely. Summary Intermittent fasting may help reduce insulin levels. However, more research needs to be done, and this way of eating may not suit everyone. 10. Increase soluble fiber intake Soluble fiber provides a number of health benefits, including aiding in weight loss and reducing blood sugar levels. After you eat, the soluble fiber in food absorbs water and forms a gel, which slows down the movement of food through your digestive tract. This promotes feelings of fullness and keeps your blood sugar and insulin from rising too quickly after a meal (53, 54). One observational study from 2013 found that individuals assigned female at who ate the most soluble fiber were half as likely to be insulin-resistant as individuals assigned female who ate the least soluble fiber (55). Soluble fiber also helps feed the friendly bacteria that live in your colon, which may improve gut health and reduce insulin resistance. In a 6-week controlled study of older women with obesity, those who took flaxseed (which contains soluble fiber) experienced greater increases in insulin sensitivity and lower insulin levels than women who took a probiotic or placebo (56). Overall, fiber from whole foods appears to be more effective at reducing insulin than fiber in supplement form, although results are mixed. One study found that insulin decreased when people consumed black beans but not when they took a fiber supplement (57). Summary Soluble fiber, especially from whole foods, has been shown to increase insulin sensitivity and lower insulin levels, particularly in people living with obesity or type 2 diabetes. 11. Concentrate on weight loss, if advised The distribution of fat throughout your body is determined by age, sex hormones, and genetic variation (58). An overabundance of belly fat -- also known as visceral or abdominal fat -- in particular is linked to many health issues. Visceral fat can promote inflammation and insulin resistance, which drives hyperinsulinemia (59, 60, 61). A small study from 2013 suggests that losing visceral fat can lead to increased insulin sensitivity and lower insulin levels (62). Interestingly, another small study from 2013 found that people who lost abdominal fat retained the benefits for insulin sensitivity even after regaining a portion of the belly fat (63). There is no way to specifically target visceral fat when losing weight. However, visceral fat loss is linked to subcutaneous fat loss, so when you lose weight in general, you ll likely also lose visceral fat. Furthermore, studies show that when you lose weight, you lose a higher percentage of visceral fat than fat throughout the rest of your body (64). If your doctor has advised you to lose weight, talk with them about the best weight loss program for you. Summary If your doctor advises you to do so, losing visceral fat can increase insulin sensitivity and help reduce your insulin levels. While you can t target visceral fat specifically, when you lose weight overall, you lose visceral fat as well. 12. Incorporate green tea into your diet Green tea contains high amounts of an antioxidant known as epigallocatechin gallate (EGCG), which may help fight insulin resistance (65, 66, 67). In a 2016 study, postmenopausal individuals living with obesity and high insulin levels who took green tea extract experienced a small decrease in insulin over 12 months, while those who took a placebo had increased insulin levels following the intervention (66). In a 2013 review, researchers reported that green tea appeared to significantly lower fasting insulin levels in high quality studies (67). However, there are other high quality studies on green tea supplementation that have not shown a reduction in insulin levels or increased insulin sensitivity (68). Summary Several studies have found that green tea may increase insulin sensitivity and decrease insulin levels, but results are mixed. 13. Eat more fatty fish There are many reasons to consume fatty fish like salmon, sardines, mackerel, sung, and anchovies. They provide high quality protein and are some of the best sources of long-chain omega-3 fats, which offer many health benefits (69). Studies have shown that the omega-3s in fatty fish may also help reduce insulin resistance in people living with obesity, gestational diabetes, and PCOS (70, 71, 72). According to the U.S. Department of Health and Human Service s Dietary Guidelines for Americans, adults can safely consume at least 8 ounces of seafood per week (based on a 2,000-calorie diet). Young children should eat less. People who are or should eat 8-12 ounces of a variety of seafood per week, choosing options that are lower in mercury (73). While eating fish is typically recommended over taking supplements for a variety of reasons (more omega-3s aren t always better, and fish has additional nutrients and vitamins), fish oil supplements are sold widely in stores and are often used in studies. These supplements contain the same long-chain omega-3 fats as the fish itself, but the effective dosage has not yet been determined (74). Despite the need for more research, fish oil has been shown to support healthy blood sugar. One small 2011 study in individuals with PCOS found a significant 8.4% decrease in insulin levels in a group who took fish oil, compared with a group who took a placebo (71). Another study from 2013 found that children and adolescents with obesity who took fish oil supplements significantly reduced their insulin resistance and triglyceride levels (72). Finally, a review of 17 studies found that taking fish oil supplements is associated with increased insulin sensitivity in people living with metabolic disorders (75). Summary The long-chain omega-3s in fatty fish may help reduce insulin resistance and insulin levels, especially in those with metabolic disorders. While fish oil supplements are sold widely and often used in studies, the effective dosing has not yet been determined. 14. Get the right amount and type of protein Consuming adequate protein at meals can be beneficial for controlling your weight and insulin levels. In a small study from 2014, premenopausal individuals living with obesity had lower insulin levels after consuming a high protein breakfast compared with a low protein breakfast. They also felt escalante and ate fewer calories at lunch (76). However, protein stimulates insulin production so that your muscles can take up amino acids. Therefore, eating very high amounts over a prolonged period may lead to higher insulin levels in otherwise healthy individuals (77). A larger study from 2018 sheds some light on these diverging results: When it comes to protein, dietary patterns are important. For instance, researchers found that individuals who ate a majority of plant proteins were less likely to develop type 2 diabetes, while individuals who ate a lot of protein in the form of red meat had a greater likelihood of living with or developing type 2 diabetes (78). So while protein is important, eating a variety of protein that isn t overly processed and is nutrient-dense is even more important. https://www.[employer]/nutriti on/36-dzac-bh-lower-insulin A Short Walk After Meals Is All It Takes to Lower Blood Sugar Researchers studying older adults with pre-diabetes found that 15 minutes of gogq-zm-rhkryxez exercise after every meal curbed risky blood sugar spikes all day. Seniors are more prone to developing diabetes, but a little exercise could make a big difference. A study published today in Diabetes Care found that three short walks each day after meals were as effective at reducing blood sugar over 24 hours as a single 45-minute walk at the same moderate pace. Even better, taking an evening constitutional was found to be much more effective at lowering blood sugar following supper. The evening meal, often the largest of the day, can significantly raise 24-hour glucose levels. The innovative exercise science study was conducted at the Clinical Exercise Physiology Laboratory at the [facility] ([facility]) using whole room calorimeters. Sanam Kingsley, Ph.D., chair of the [facility] Department of Exercise Science, led the study. These findings are good news for people in their 70s and 80s who may feel more capable of engaging in intermittent physical activity on a daily basis, Sancho said in a press release. Putting Humans in a Box to Measure Their Energy Use The whole room calorimeter (WRM), which looks like a very small hotel room, is a controlled-air environment for human study that allows scientists to calculate a person s energy expenditure by testing samples of air. The balance of oxygen consumed and carbon dioxide produced varies according to the activity level of the person in the room. The WRM also measures the body s use of different food fuels, such as carbohydrates, proteins, and fats. The 10 study participants spent three 48-hour periods in the small calorimeter rooms. Each room was equipped with a bed, toilet, sink, treadmill, television, and computer, leaving little room to move around. Participants ate standardized meals, and their blood sugar levels were monitored continuously using blood tests. The first day in the [facility] served as a control period, with no exercise. On the second day, participants either walked at a moderate pace on the treadmill for 15 minutes after each meal, or for 45 minutes in either the late morning or before supper. The researchers observed that the evening post-meal walk was the most effective in lowering blood sugar levels for a full 24 hours. The typical exaggerated rise in blood sugar after supper--which often lasts well into the night and racetrack steward--was curbed significantly as soon as the participants started to walk on the treadmill, the study authors said. How Age Affects Insulin Resistance An estimated 79 million Americans have pre-diabetes, according to the National Diabetes Education Program run by the National Institutes of Health. But many people have no idea they are at risk. According to Sancho, older people may be particularly susceptible to poor blood sugar control after meals because inactive muscles contribute to insulin resistance. The problem is compounded by slow or low insulin secretion by the pancreas, which often occurs as the body ages. Post-meal high blood sugar is a lehman risk factor in the progression from impaired glucose tolerance (pre-diabetes) to type 2 diabetes and cardiovascular disease, Sancho explained. Other studies have suggested that weight loss and exercise can prevent type 2 diabetes. The authors say theirs is the first study to examine short bouts of physical activity timed around the risky period following meals--a time when blood sugar can rise rapidly and potentially cause damage to internal organs and blood vessels. The muscle contractions connected with short walks were immediately effective in blunting the potentially damaging elevations in post-meal blood sugar commonly observed in older people, Sancho said. If the findings of this small study hold up to further testing, it could lead to an inexpensive prevention strategy for pre-diabetes, which can develop over time into type 2 diabetes. Back in the day, it was de rigueur to take a morning, noon, and evening walk. The time has come to get up from the table, tie on those walking shoes, and take a little stroll around the block. https://www.[employer]/health- news/vgnnq-uakjfji-bdwje-meals-to- pezevgv-mkexl-peczr-spikes-277541 Why Is Protein So Important for Weight loss? consuming more protein not only reduces body weight but enhances body composition by decreasing fat mass while preserving fat-free mass During weight loss phase protein consumption (with normal kidney function) should be 1-1.6g protein per Kilogram of body weight (1kg=2.2lbs) On average Women need to Aim for a minimum 90g protein per day Consuming higher protein can also prevent weight regain after weight loss Protein consumption increases hormones responsible for satiety (feeling full)- these include Gut hormones like Glucagon-like peptide-1 (GLP-1), Cholecystokinin (CCK), Peptide Tyrosine-Tyrosine (PYY) and decreasing the Gut hormone responsible for causing hunger Ghrelin Protein has an increased thermogenesis effect of food- which means it take more calories to break down protein when consumed compared to carbohydrates or fats Protein also prevents a losing lean mass during weight loss (lose more fat and preserve fat free mass) which helps to increase resting energy expenditure (resting metabolic rate) Every pound of muscle roberts ~ 6 kcal per pound/day vs fat roberts ~ 2kcal per pound/day Carbohydrates - Why do You Crave Them? Eating too many refined carbohyrdates (sugar beverages, pastries, bread, pizza) which raises your blood glucose levels and therefore releasing insulin which in turn causes increase in hunger Carbohydrates suppress Ghrelin quickly but does not maintain the suppression for very long therefore hunger returns more quickly Consuming carbohydrates leads to a release of Dopamine feel good hormone in our brain So how do you Curb these cravings? Eating Whole Foods with more fiber - High fiber carbs are absorbed and digested slowly so it does not impact blood sugar levels as much and will help in making you feel escalante for longer; fiber also is healthy for your gut bacteria and can help with constipation. Remember- carbohydrates are not the enemy but know what a proper serving size is, choose nutritious carbohydrates and space them out between meals. Always- eat your protein first followed by your non starchy vegetables followed by your carbohydrates- it will help your body with your glucose and insulin regulation Processed Foods vs Whole Foods- Impact on Weight: People who eat Ultra Processed food tend to consume about 500 calories more per day Ultra Processed foods are considered Calorie Dense so when a person feels full they have typically already over eaten and consumed more calories Whole Foods (unprocessed foods) tend to be more more filling and more Nutrient Dense Unprocessed foods can be more expensive and not realistic for everyone however when you have the choice to consume unprocessed vs Ultra processed foods always pick unprocessed. Why can't people stop eating Ultra Processed foods? They are economical and optimized for taste by food [employer] - they are designed to make you want to keep eating them- they feed common cravings and bypass the mechanisms that tell your brain you are full Benefits of eating Whole Foods and cutting out Ultra Processed Foods Increased concentration and focus (decreased brain fog), improved mood, better sleep, Decrease in fatigue, improvement in gut health, decreased inflammation, Likely WEIGHT LOSS High Protein Snack Ideas 1. Jerky 2. [place] mix without dried fruit 3. [place] roll-ups 4. Ukrainian yogurt 5. Veggies and yogurt dip 6. Tuna 7. Hard-boiled eggs 8. Peanut butter with celery 9. Cheese slices/ Cheese Stick 10. Handful of almonds, peanuts or walnuts 11. Cottage Cheese 12. Beef sticks 13. Protein bars 14. Canned [place] 15. Pumpkin seeds 16. Nut butter 17. Protein shakes 18. Avocado and chicken salad 19. Egg muffins 20. Leftover protein or lunch meat 21. 1/2 c blended cottage cheese or Ukrainian yogurt with dry ranch/Mrs. Dash/herb seasoning mix to make protein dip 22. 1/2 c blended cottage cheese with 1 Tbsp sugar-free dry cheesecake pudding mix 12g protein 10 carb 23. Pudding - 1 30 gm protein shake with 1/2 pkg sugar-free pudding 4 svgs - 7.8 gm protein, 5 carb each svg 24. SF Sunkist or Root Beer with 1-2 Tablespoons heavy whipping cream 25. Mini frozen dessert bites - layer protein yogurt, skinny syrup and crushed nuts and freeze documented in this encounter [facility] 06-30-2024 History of Present illness Narrative Images from the original note were not included. Some documentation from previous visit of 05/20/24 was copied and pasted, documentation has been reviewed and edited as necessary for today's visit. Patient Summary: Sherin is a 28 year old Female who presents for follow-up evaluation of obesity/weight management to treat and prevent related co-morbidities. In our previous visits we have discussed lifestyle intervention including a nutrition recommendations and physical activity optimization. Her last office visit was 6 weeks ago. Assessment/plan from last visit: - continue VIt D supplement - Low carb, high protein, whole foods - reviewed protein goals and balancing btwn lunch and dinner- avoiding large carbohydrate load with dinner- discussed if has difficult time tracking and/or measuring food- recommend taking dinner and when on plate only eat half - accepts sleep medicine consult and study - accepts nutrition consult - zepbound- covered after 6 months of diet/exercise program () - Increase Metformin to 1000mg XR BID - new RX given today - follow up with heme as scheduled for anemia - PCP to manage synthroid for hypothyroidism - importance of goal setting reviewed with patient - Recheck VIT D LEVEL next visit Interval History PT specifies the following items as new or significant updates since the last appointment: - starting to track but not analyzing anything - got her fit bit working again - eating about 2400cal-3000 xochitl per day- not sure on serving sizes still - had sleep study done- JOSEPH - meeting with sleep medicine 07/06 - using shakes to get more protein Weight loss since last vist: 4 lbs, total weight lost: 1 lb - Last Wt 06/25/24: 285 lb 05/20/24: 289 lb 04/10/24: 286 lb Starting weight: 03/02/24 : 132.5 kg (292 lb 3.2 oz) 5% weight loss = 278 lbs, 10% weight loss = 263 lbs Anti-obesity medications: Tirzepatide (Zepbound)- didn't start- thinks it is covered when she checked insurance Benefit: Adverse effects: Anti-obesity medications: Metformin Benefit: insulin level Adverse effects:none Weight promoting medications: Other prozac, atarax Previous Diet (initial appointment): Awake - 7am B - bagel butter or fruit smoothie- frozen berries, kiwi, strawberries, yogurt plain, apple juice S - L - goldfish S - D - 5pm meat and mashed potato and peas, chicken burrito-rice, chicken and cheese, chicken and salad- olive garden dressing and croutons. Hamburger helpers S - ice cream (every other week) Fluids: 4-5 16oz bottles of water and fruit juice snapple (one per day), stopped soda about 1.5 yrs ago Bedtime -8-9 falls asleep an hour later Quality of diet: 24hr recall suggests in between diet. Characterization of diet:Unstructured, unhealthy snacking, excessive cravings, increased consumption of sugar sweetened beverages, and skip meals. 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 Eating Disorder no Cravings: sugar but only has about has about 1 every other week- better since gave up soda Dietary changes: B - protein shakes- premier , sbx frappacuccino S - L - 4 hot dogs S - D -tends to eat big dinner- burgers, chicken wrap (rice, cheese)- (stopped hamburger helper), crockpot recipe - stew meat and potatoes S - Fluids - water, rootbeer (during holidays- will stop again) Trying to eat 3 meals a day, including breakfast Increasing water intake Increasing protein Reducing sugar-sweetened beverages Reducing carbohydrates Current Barriers: large portion sizes- DINNER Exercise: not regular but moving heather during the day - 2800 steps/day Stress: Stress:yes , Cause:Personal Sleep: Duration: 8-9 hours. JOSEPH yes ; CPAP not yet- seeing sleep medicine 07/06 Estimated Creatinine Clearance: 146.5 mL/min (based on SCr of 0.77 mg/dL). PAST MEDICAL HISTORY Diagnosis Date 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 attack Hypothyroidism Iron deficiency anemia Iron malabsorption 06/03/2024 Kidney stones Menorrhagia with irregular cycle 06/03/2024 Current Outpatient Medications Medication Sig Dispense Refill oseltamivir (TAMIFLU) 75 mg capsule Take 1 capsule by mouth two times a day for 5 days. 10 capsule 0 tirzepatide, weight loss (ZEPBOUND) 2.5 mg/0.5 mL pen injector Inject 2.5 mg subcutaneously one time a week. (Patient not taking: Reported on 06/10/2024) 2 mL 0 metFORMIN ER (GLUCOPHAGE XR) 500 mg 24 hr tablet Take 2 tablets by mouth two times a day. 360 tablet 1 busPIRone (BUSPAR) 15 mg tablet Take 1 tablet by mouth three times a day. 270 tablet 0 cholecalciferol, Vitamin D3, (VITAMIN D3) 1,250 mcg (50,000 unit) cap capsule TAKE 1 CAPSULE BY MOUTH ONE TIME A WEEK. 12 capsule 1 cholecalciferol, vitamin D3, (VITAMIN D3 ORAL) Take by mouth. (Patient not taking: Reported on 05/20/2024) segesterone ac-ethin estradiol (ANNOVERA) 0.15-0.013 mg/24 hour vaginal ring Insert 1 ring vaginally to remain in place for 24 days, then removed for 4 days and stored in case. One ring provides contraception for 13 cycles (1 year) 1 Each 0 ferrous sulfate (IRON ORAL) Take 2 tablets by mouth every other day. acetaminophen (TYLENOL EXTRA STRENGTH) 500 mg tablet Take 1,000 mg by mouth every 8 hours as needed. FLUoxetine (PROZAC) 20 mg capsule Take 1 capsule by mouth once daily. 90 capsule 1 levothyroxine (SYNTHROID) 50 mcg tablet Take 1 tablet by mouth once daily. 90 tablet 1 hydrOXYzine HCl (ATARAX) 10 mg tablet Take 1 tablet by mouth two times a day as needed. 90 tablet 2 No current facility-administered medications for this visit. ROS has more energy but fatigue is there. ROS/Fam Hx pertaining to AOMs: GEN: Fatigue:yes CV: h/o palpitations/cardiac arrhythmia, Chest pain: yes, when her anemia is really bad. 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 Latest Ref Rng & Units 03/02/2024 CMP Sodium 136 - 144 mmol/L 137 Potassium 3.7 - 5.1 mmol/L 3.9 Chloride 98 - 107 mmol/L 103 CO2 22 - 30 mmol/L 24 Glucose 74 - 99 mg/dL 91 BUN 7 - 21 mg/dL 12 Creatinine 0.58 - 0.96 mg/dL 0.77 EGFR >=60 mL/min/1.73m 107 Protein, Total 6.3 - 8.0 g/dL 8.0 Albumin 3.9 - 4.9 g/dL 4.4 Calcium 8.5 - 10.2 mg/dL 9.4 Bilirubin, Total 0.2 - 1.3 mg/dL 0.4 AST 13 - 35 U/L 11 ALT 7 - 38 U/L 11 Alkaline Phosphatase 34 - 123 U/L 107 Cholesterol, Total (mg/dL) Date Value 03/02/2024 176 HDL Cholesterol (mg/dL) Date Value 03/02/2024 44 LDL Cholesterol (mg/dL) Date Value 03/02/2024 114 LDL Cholesterol, Nonfasting (mg/dL) Date Value 08/26/2023 88 Triglyceride (mg/dL) Date Value 03/02/2024 88 Latest Ref Rng & Units 05/11/2024 CBC WBC 3.70 - 11.00 k/uL 9.42 RBC 3.90 - 5.20 m/uL 5.11 Hemoglobin 11.5 - 15.5 g/dL 11.6 Hematocrit 36.0 - 46.0 % 37.9 MCV 80.0 - 100.0 fL 74.2 MCH 26.0 - 34.0 pg 22.7 MCHC 30.5 - 36.0 g/dL 30.6 RDW-CV 11.5 - 15.0 % 14.8 Platelet Count 150 - 400 k/uL 384 MPV 9.0 - 12.7 fL 9.5 Baso% % 0.6 Abs Neut (ANC) 1.45 - 7.50 k/uL 6.31 Abs Lymph 1.00 - 4.00 k/uL 2.39 Abs Freeborn <0.87 k/uL 0.44 Abs Eosin <0.46 k/uL 0.18 Abs Baso <0.11 k/uL 0.06 NRBC /100 WBC 0.0 Vitamin D 25 Hydroxy Date Value Ref Range Status 03/02/2024 9.6 (L) 31.0 - 80.0 ng/mL Final TSH (mIU/L) Date Value 11/04/2023 2.160 08/26/2023 3.610 ) Hemoglobin A1C (%) Date Value 03/02/2024 5.0 08/26/2023 4.9 Insulin Date Value Ref Range Status 03/02/2024 18.9 3.0 - 25.0 mU/L Final Assessment/Plan: Sherin Sandoval is a 28 year old yo with Class III obesity who presented today for follow up for supervised weight loss to treat and prevent related co-morbidities. (R53.81, R53.83) Malaise and fatigue (primary encounter diagnosis) (G47.33) JOSEPH (obstructive sleep apnea) (E88.819) Insulin resistance (R03.0) Elevated blood pressure reading without diagnosis of hypertension (E55.9) Vitamin D deficiency (E78.1) Hypertriglyceridemia (E03.9) Hypothyroidism, unspecified type (E66.813, E66.01, Z68.43) Class 3 severe obesity with body mass index (BMI) of 50.0 to 59.9 in adult, unspecified obesity type, unspecified whether serious comorbidity present (HCC) - continue VIt D supplement - RECHECK VIT D level today- ordered - FOLLOW up WITH sleep MEDICINE SCHEDULED 07/06 FOR JOSEPH - discussed using tracking to plan meals- reviewed tracking protein goal of 90-200g/day and carbs <100g per day- gave her online resources to check for basic concepts. Reviewed serving sizes, measuring food. Discussed no calories from drinks. - Low carb, high protein, whole foods - accepts sleep medicine consult and study - accepts nutrition consult - zepbound- covered after 6 months of diet/exercise program AUGUST - doing well with METFORMIN 1000mg XR BID- continue at this time - follow up with heme as scheduled for anemia - PCP to manage synthroid for hypothyroidism - importance of goal setting reviewed with patient - An overall goal of 150-200 minutes per week of exercise has been effective in weight loss and maintenance. Prescription instructions reviewed with patient as applicable. Potential red flag symptoms discussed with the patient. Reviewed appropriate action plan to take if red flag symptoms occur. Patient agreeable to treatment plan. Follow up in 5 weeks I spent a total of 32 minutes on the date of the service which included preparing to see the patient, [id number] patient care, completing clinical documentation, obtaining and/or reviewing separately obtained history, performing a medically appropriate examination, counseling and educating the patient/family/caregiver, and ordering medications, tests, or procedures. Vikki Bell MD, FACOG, DABOM documented in this encounter [facility] 06-30-2024 Note [facility] 06-24-2024 Telephone encounter Note Patient notified.Valencia Mason LPN [facility] 06-24-2024 Miscellaneous Notes Patient notified.Valencia Mason LPN Patient's influenza A came back positive as discussed at visit yesterday. COVID and RSV are negative. documented in this encounter [facility] 06-24-2024 Telephone encounter Note Patient's influenza A came back positive as discussed at visit yesterday. COVID and RSV are negative. [facility] Work Phone: 06-23-2024 Instructions Jeni Naranjo APRN.[facility] - 06/23/2024 11:18 AM EST ASSESSMENT/PLAN: 1. Flu-like symptoms - ICD9: 780.99, ICD10: R68.89 (primary diagnosis) - INFLUENZA A&B MOLECULAR (POC) - COVID & INFLUENZA A/B & RSV PCR, ROUTINE Office Visit on 06/23/2024 Component Date Value Ref Range Status Flu A (POCT) 06/23/2024 Positive (A) Negative Final Location:[facility], [address], [place], [address] Procedural Control 06/23/2024 Valid Final 2. Influenza A - ICD9: 487.1, ICD10: J10.1 - OSELTAMIVIR 75 MG CAPSULE You have tested positive for influenza A. Recommend supportive therapy at home. - Drink PLENTY of fluids (Gatorade/Pedialyte, tea) and get PLENTY of rest - Vaporizers, humidifiers, hot showers, and warm fluids help open respiratory and sinus passages (helps with cough and congestion) - Saline nose spray - Tylenol or ibuprofen as needed for fever and/or discomfort - Cover cough and wash hands frequently to prevent the spread of germs. Influenza can be spread through contact with respiratory secretions (through sneezing, coughing, talking, touching) or contaminated objects. You can be contagious from before your symptoms began and for several days after. -Stay home until fever free for 24 hours. 3. Tachycardia - ICD9: 785.0, ICD10: R00.0 -heart rate rechecked prior to discharge and it is 126. Consistent with influenza A and fever. - Follow-up with your PCP in 3-5 days if symptoms have not improved or sooner if symptoms worsen - Discussed red flags and need for immediate medical evaluation if any occur. - Discussed supportive care treatment with fluids, rest and analgesia. - Discussed expected course of illness Jeni Naranjo APRN.[facility] PATIENT INFO INFLUENZA INTRODUCTION Influenza (commonly called the flu) is a highly contagious illness that can occur in children or adults of any age. It occurs more often in the winter months because people spend more time in close contact with one another. The flu is spread easily from mizokm-mi-rsglnq by coughing, sneezing, or touching surfaces. Every year, complications of the flu require more than 200,000 people in the [place] to be hospitalized. Serious illness is more likely in the very young, older adults, women, and people who have certain health problems such as asthma or other forms of lung disease. There have been several widespread flu outbreaks (called pandemics), which led to the deaths of many people worldwide. These outbreaks occurred when new strains of influenza viruses formed (often from pigs or birds) and humans became infected because they had no immunity to these viruses. FLU SYMPTOMS Symptoms of seasonal flu can vary from person to person, but usually include: Fever (temperature higher than 100 F or 37.8 C) Headache and muscle aches Fatigue Cough and sore throat may also be present People with the flu usually have a fever for two to five days. This is different than fever caused by other upper respiratory viruses, which usually resolve after 24 to 48 hours. Some people have cold-like symptoms (runny nose, sore throat) during the flu while others have fever and muscle aches. Flu symptoms usually improve over two to five days, although the illness may last for a week or more. Weakness and fatigue may persist for several weeks Flu complications -- Complications of influenza occur in some people; pneumonia is the most common complication. Pneumonia is a serious infection of the lungs, and is more likely to occur in people over the age of 65, people who live in intermediate project manager care facilities (nursing homes), and those with other illnesses such as diabetes or conditions affecting the heart or lungs. FLU DIAGNOSIS Influenza is usually diagnosed based on symptoms (fever, cough and muscle aches). Lab testing for influenza is performed in certain cases, such as during a new influenza outbreak in a community. FLU TREATMENT When to seek help -- Most people with the flu recover within one to two weeks without treatment. However, serious complications of the flu can occur. Call your doctor or nurse immediately if: You feel short of breath or have trouble breathing You have pain or pressure in your chest or stomach You have signs of being dehydrated, such as dizziness when standing or not passing urine You feel confused You cannot stop vomiting or you cannot drink enough fluids There are several groups of people who are at increased risk for flu complications. These include women, young children (<5 years of age, and especially <2 years of age), people >=65 years of age, and people with certain diseases such as chronic lung disease (such as asthma), heart disease, diabetes, immunosuppressing conditions (such as HIV infection or transplantation), and some other diseases. If you or your child has flu symptoms and is at increased risk of flu complications, you should call your healthcare provider. Treat symptoms -- Treating the symptoms of influenza can help you to feel better, but will not make the flu go away faster. Rest until the flu is fully resolved, especially if the illness has been severe Fluids -- Drink enough fluids so that you do not become dehydrated. One way to change consultant if you are drinking enough is to look at the color of your urine. Normally, urine should be light yellow to nearly colorless. If you are drinking enough, you should pass urine every three to five hours. Acetaminophen (such as Tylenol and other brands) can relieve fever, headache, and muscle aches. Aspirin, and medicines that include aspirin (eg, bismuth subsalicylate; PeptoBismol), are not recommended for children under 18 because aspirin can lead to a serious disease called Crystal syndrome. Cough medicines are not usually helpful; cough usually resolves without treatment. We do not recommend cough or cold medicine for children under age six years. Antiviral treatment -- Antiviral medicines can be used to treat or prevent influenza. When used as a treatment, the medicine does not eliminate flu symptoms, although it can reduce the severity and duration of symptoms by about one day. Not every person with influenza needs an antiviral medicine; the decision is based upon your risk of developing complications of influenza. Antiviral treatment is most effective for seasonal influenza when it is taken within the first 48 hours of flu symptoms. Side effects -- Zanamivir and oseltamivir can cause mild side effects, including nausea and vomiting; zanamivir, which is inhaled, can cause difficulty breathing in some cases. Most people are able to continue the medicine despite the side effects. Antibiotics -- Antibiotics are NOT useful for treating viral illnesses such as influenza. Antibiotics should only used if there is a bacterial complication of the flu such as bacterial pneumonia, ear infection, or sinusitis. Antibiotics can cause side effects and lead to development of antibiotic resistance. documented in this encounter [facility] 06-23-2024 Note SARS-COV-2 (AGENT OF COVID-19) RNA: Not detected INFLUENZA A RNA: Detected INFLUENZA B RNA: Not detected RESPIRATORY SYNCYTIAL VIRUS (RSV) RNA: Not detected [facility] Comment on above: Performed By: #### [id number] ####[facility] LABCLIA [id number] [address] [place] 06-23-2024 Note [facility] 06-23-2024 History of Present illness Narrative Subjective Cough Associated symptoms include chills, sore throat, myalgias and shortness of breath. Pertinent negatives include no chest pain and no ear pain. Sherin Sandoval is a 28 year old female who presents with cough for the past 2 days. Also having chest congestion, body aches, nausea, sore throat and not sleeping. She and her were sick 2 weeks ago with similar symptoms and they thought it was the flu. Her symptoms were not fully resolved from that prior illness and then 2 days ago got much worse. Review of Systems Constitutional: Positive for chills, fever and malaise/fatigue. HENT: Positive for congestion and sore throat. Negative for ear pain. Respiratory: Positive for cough and shortness of breath. Cardiovascular: Negative for chest pain. Gastrointestinal: Positive for nausea. Negative for diarrhea and vomiting. Musculoskeletal: Positive for myalgias. BP 124/82 Pulse (!) 146 Temp (!) 38 C (100.4 F) (Tympanic) Resp 20 Wt 132.3 kg (291 lb 10.7 oz) LMP 04/29/2024 (Approximate) SpO2 98% BMI 49.68 kg/m PAST MEDICAL HISTORY Diagnosis Date 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 attack Hypothyroidism Iron deficiency anemia Iron malabsorption 06/03/2024 Kidney stones Menorrhagia with irregular cycle 06/03/2024 PAST SURGICAL HISTORY Procedure Laterality Date CATH/STENT RENAL DRAINAGE EXTRACTION ERUPTED TOOTH/EXR wisdom teeth HYSTEROSCOPY, DIAGNOSTIC (SEPARATE 12/20/2023 hysteroscopy dilation and curettage, polypectomy, liletta insertion LITHOTRIPSY XTRCORP SHOCK WAVE X 2 REMOVAL OF HEEL SPUR Right TONSILLECTOMY HX ALLERGIES Patient has no known allergies. MEDICATIONS metFORMIN ER (GLUCOPHAGE XR) 500 mg 24 hr tablet Take 2 tablets by mouth two times a day. busPIRone (BUSPAR) 15 mg tablet Take 1 tablet by mouth three times a day. cholecalciferol, Vitamin D3, (VITAMIN D3) 1,250 mcg (50,000 unit) cap capsule TAKE 1 CAPSULE BY MOUTH ONE TIME A WEEK. segesterone ac-ethin estradiol (ANNOVERA) 0.15-0.013 mg/24 hour vaginal ring Insert 1 ring vaginally to remain in place for 24 days, then removed for 4 days and stored in case. One ring provides contraception for 13 cycles (1 year) ferrous sulfate (IRON ORAL) Take 2 tablets by mouth every other day. acetaminophen (TYLENOL EXTRA STRENGTH) 500 mg tablet Take 1,000 mg by mouth every 8 hours as needed. FLUoxetine (PROZAC) 20 mg capsule Take 1 capsule by mouth once daily. levothyroxine (SYNTHROID) 50 mcg tablet Take 1 tablet by mouth once daily. hydrOXYzine HCl (ATARAX) 10 mg tablet Take 1 tablet by mouth two times a day as needed. tirzepatide, weight loss (ZEPBOUND) 2.5 mg/0.5 mL pen injector Inject 2.5 mg subcutaneously one time a week. (Patient not taking: Reported on 06/10/2024) cholecalciferol, vitamin D3, (VITAMIN D3 ORAL) Take by mouth. (Patient not taking: Reported on 05/20/2024) FAMILY HISTORY Problem Relation Age of Onset Breast Cancer Mother other (hysterectomy) Mother Cervical Cancer Mother other (throat cancer) Father No Known Problems Sister No Known Problems Sister Diabetes Brother No Known Problems Brother No Known Problems Brother Cervical Cancer Maternal Grandmother Dementia Maternal Grandfather Social History Tobacco Use Smoking status: Never Passive exposure: Never Smokeless tobacco: Never Vaping Use Vaping status: Never Used Substance Use Topics Alcohol use: Not Currently Drug use: Never Objective Physical Exam Vitals and nursing note reviewed. Constitutional: General: She is not in acute distress. Appearance: Normal appearance. She is not ill-appearing. HENT: Right Ear: Tympanic membrane, ear canal and external ear normal. Left Ear: Tympanic membrane, ear canal and external ear normal. Nose: Congestion present. Mouth/Throat: Mouth: Mucous membranes are moist. Pharynx: Oropharynx is clear. Uvula midline. No oropharyngeal exudate or posterior oropharyngeal erythema. Cardiovascular: Rate and Rhythm: Regular rhythm. Tachycardia present. Heart sounds: Normal heart sounds. Pulmonary: Effort: Pulmonary effort is normal. No respiratory distress. Breath sounds: Normal breath sounds. No wheezing or rales. Musculoskeletal: Cervical back: Neck supple. Lymphadenopathy: Cervical: No cervical adenopathy. Skin: General: Skin is warm and dry. Findings: No erythema or rash. Neurological: Mental Status: She is alert. ASSESSMENT/PLAN: 1. Flu-like symptoms - ICD9: 780.99, ICD10: R68.89 (primary diagnosis) - INFLUENZA A&B MOLECULAR (POC) - COVID & INFLUENZA A/B & RSV PCR, ROUTINE Office Visit on 06/23/2024 Component Date Value Ref Range Status Flu A (POCT) 06/23/2024 Positive (A) Negative Final Location:[facility], [address] [place] [address], [place], [address] Procedural Control 06/23/2024 Valid Final 2. Influenza A - ICD9: 487.1, ICD10: J10.1 - OSELTAMIVIR 75 MG CAPSULE You have tested positive for influenza A. Recommend supportive therapy at home. - Drink PLENTY of fluids (Gatorade/Pedialyte, tea) and get PLENTY of rest - Vaporizers, humidifiers, hot showers, and warm fluids help open respiratory and sinus passages (helps with cough and congestion) - Saline nose spray - Tylenol or ibuprofen as needed for fever and/or discomfort - Cover cough and wash hands frequently to prevent the spread of germs. Influenza can be spread through contact with respiratory secretions (through sneezing, coughing, talking, touching) or contaminated objects. You can be contagious from before your symptoms began and for several days after. -Stay home until fever free for 24 hours. 3. Tachycardia - ICD9: 785.0, ICD10: R00.0 -heart rate rechecked prior to discharge and it is 126. Consistent with influenza A and fever. - Follow-up with your PCP in 3-5 days if symptoms have not improved or sooner if symptoms worsen - Discussed red flags and need for immediate medical evaluation if any occur. - Discussed supportive care treatment with fluids, rest and analgesia. - Discussed expected course of illness Jeni Naranjo APRN.[employer] documented in this encounter [facility] 06-20-2024 Telephone encounter Note Noted- per my last note pt did not want to start any other medications. Pt started program in February so that would possibly make her eligible in . Please notify patient. [facility] 06-20-2024 Miscellaneous Notes Noted- per my last note pt did not want to start any other medications. Pt started program in February so that would possibly make her eligible in . Please notify patient. Received response today that Zepbound was denied due to the fact that patient has not been in a comprehensive weight management program for at least 6 months. Please advise. Miguel Ernst MA She has appt scheduled with Jolene Ozuna on 07/06/24. Riana Curiel RN Will be placing order for zepbound for newly dx JOSEPH on home sleep study. Please notify patient and send all documentation. Please see she has follow up appt with florin ozuna scheduled. Thank you. documented in this encounter [facility] 06-19-2024 Telephone encounter Note Received response today that Zepbound was denied due to the fact that patient has not been in a comprehensive weight management program for at least 6 months. Please advise. Miguel Ernst MA [facility] 06-19-2024 Telephone encounter Note Referral update received from [facility]. They have been unable to reach the patient and also patients insurance does not cover the service requested. FYI. Allie Luna RN [facility] 06-19-2024 Miscellaneous Notes Referral update received from [facility]. They have been unable to reach the patient and also patients insurance does not cover the service requested. YESSENIA. Allie Luna RN documented in this encounter [facility] 06-09-2024 Telephone encounter Note She has appt scheduled with Jolene Ozuna on 07/06/24. Riana Curiel RN [facility] 06-04-2024 Telephone encounter Note Will be placing order for zepbound for newly dx JOSEPH on home sleep study. Please notify patient and send all documentation. Please see she has follow up appt with florin ozuna scheduled. Thank you. [facility] 06-03-2024 Note [facility] 06-03-2024 History of Present illness Narrative HPI: The patient is a 28-year-old female with a past medical history as outlined below. Initial consultation: History HMB: Menarche ~[age]. Recalls menses have always been irregular and heavy. Passed clots. Often could use more than one pad/tampon per hour. Previous 1 unit RBC transfusion. Had received parenteral iron at [facility]. First iron carboxymaltose. Second iron sucrose. Has been on oral iron for a long time. Tolerates well. Takes with OJ. Tries to eat iron rich foods. Recently underwent hysteroscopic uterine polypectomy and placement of progestin IUD for HMB. Getting bad cramping. Still having bleeding, but slowed down. Taking IBU and Tylenol. Feels fatigued all the time. I'm exhausted. History of epistaxis: No h/o nosebleeds. History of gingival bleeding: Occasional gum bleeding if brushing or flossing. History of dental extraction: Both bottom wisdom teeth and two molars on left upper extracted. No excessive bleeding. Previous postoperative bleeding: Tonsillectomy about age 23. No post operative bleeding. Renal stone Previous excessive postdelivery bleeding: No. Tubal age 2017; MTX. Unexplained bruising: All the time. Family history of bleeding disorder: None known. Presents for ongoing hematologic management. Interim history: Initially had worsening menorrhagia after removal of IUD. Now using Annovera ring. 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 Has been consistently taking oral iron. Generalized fatigue. PAST MEDICAL HISTORY Diagnosis Date 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 attack Hypothyroidism Iron deficiency anemia Kidney stones PAST SURGICAL HISTORY Procedure Laterality Date CATH/STENT RENAL DRAINAGE EXTRACTION ERUPTED TOOTH/EXR wisdom teeth HYSTEROSCOPY, DIAGNOSTIC (SEPARATE 12/20/2023 hysteroscopy dilation and curettage, polypectomy, liletta insertion LITHOTRIPSY XTRCORP SHOCK WAVE X 2 REMOVAL OF HEEL SPUR Right TONSILLECTOMY HX metFORMIN ER (GLUCOPHAGE XR) 500 mg 24 hr tablet Take 2 tablets by mouth two times a day. busPIRone (BUSPAR) 15 mg tablet Take 1 tablet by mouth three times a day. cholecalciferol, Vitamin D3, (VITAMIN D3) 1,250 mcg (50,000 unit) cap capsule TAKE 1 CAPSULE BY MOUTH ONE TIME A WEEK. segesterone ac-ethin estradiol (ANNOVERA) 0.15-0.013 mg/24 hour vaginal ring Insert 1 ring vaginally to remain in place for 24 days, then removed for 4 days and stored in case. One ring provides contraception for 13 cycles (1 year) ferrous sulfate (IRON ORAL) Take 2 tablets by mouth every other day. acetaminophen (TYLENOL EXTRA STRENGTH) 500 mg tablet Take 1,000 mg by mouth every 8 hours as needed. FLUoxetine (PROZAC) 20 mg capsule Take 1 capsule by mouth once daily. levothyroxine (SYNTHROID) 50 mcg tablet Take 1 tablet by mouth once daily. hydrOXYzine HCl (ATARAX) 10 mg tablet Take 1 tablet by mouth two times a day as needed. tirzepatide, weight loss (ZEPBOUND) 2.5 mg/0.5 mL pen injector Inject 2.5 mg subcutaneously one time a week. cholecalciferol, vitamin D3, (VITAMIN D3 ORAL) Take by mouth. (Patient not taking: Reported on 05/20/2024) ALLERGIES No Known Allergies Social History Tobacco Use Smoking status: Never Passive exposure: Never Smokeless tobacco: Never Vaping Use Vaping status: Never Used Substance Use Topics Alcohol use: Not Currently Drug use: Never FAMILY HISTORY Problem Relation Age of Onset Breast Cancer Mother other (hysterectomy) Mother Cervical Cancer Mother other (throat cancer) Father No Known Problems Sister No Known Problems Sister Diabetes Brother No Known Problems Brother No Known Problems Brother Cervical Cancer Maternal Grandmother Dementia Maternal Grandfather REVIEW OF SYSTEMS: Constitutional: No episodes of fever and night sweats. Normal appetite. Neuro: No AVALOS, vertigo, dizziness and imbalance. No symptoms of neuropathy. HEENT: No recent change in voice, vision or hearing. Resp: No cough, wheeze and hemoptysis. No shortness of breath at rest. No QUIROZ. CVS: No exertional chest pain, PND, orthopnea and LE edema. GI: No altered taste or symptoms of stomatitis. No dysphagia and odynophagia. No reflux, n/v, change in bowel habits or abdominal pain. : No dysuria or gross hematuria. No symptoms of bladder outlet obstruction. Endo: No hot flashes. No polyuria and polydipsia. No heat and cold intolerance. Musculoskeletal: No bone, back, joint and muscular pain. Derm: No current rash. No history of jaundice or diffuse pruritis. Heme: No unusual bleeding and unexplained bruising. Psych: Normal mood. PHYSICAL EXAM: Vitals: Blood pressure 134/87, pulse 88, temperature 36.4 C (97.6 F), temperature source Temporal, weight 132 kg (291 lb), last menstrual period 04/29/2024, SpO2 97%. Well-appearing and in no acute distress. EYES: Sclerae are anicteric bilaterally. CARDIOVASCULAR: Rhythm is regular. ABDOMEN: The abdomen is nondistended. No splenomegaly or hepatomegaly. No tenderness. Extremities: No swelling or edema. SKIN: No jaundice. LABS: Latest Ref Rng 12/05/2023 01/27/2024 Ristocetin Co-Factor 42 - 146 % 23 (L) 29 (L) GPIbM Activity 44 - 156 % 41 (L) 46 Collagen Binding (CBA) 41 - 161 % 51 62 Factor VIII:C Assay 50 - 173 % 96 86 Von Willebrand Ag 50 - 173 % 57 47 (L) Ristocetin/VWF Ratio >=0.5 0.4 (L) 0.6 CBA/VWF Ratio >=0.6 0.9 1.3 FVIII/VWF Ratio >=0.5 1.7 1.8 Von Willebrand Mult Assay of von Willebrand multimers was performed by an agarose gel electrophoresis followed by immunofixation with anti-von Willebrand factor antiserum. There is a normal multimer intensity with a normal distribution of multimer sizes. Reviewed by Elena Roman M.D., Ph.D. Assay of von Willebrand multimers was performed by an agarose gel electrophoresis followed by immunofixation with anti-von Willebrand factor antiserum. PT Sec <13.1 sec 10.2 10.4 PT INR 0.9 - 1.3 1.0 1.0 APTT 23.0 - 32.4 sec 24.1 29.9 Latest Ref Rng 12/11/2023 01/02/2024 WBC 3.70 - 11.00 k/uL 9.49 9.28 RBC 3.90 - 5.20 m/uL 4.79 5.02 Hemoglobin 11.5 - 15.5 g/dL 11.9 12.0 Hematocrit 36.0 - 46.0 % 36.4 37.5 MCV 80.0 - 100.0 fL 76.0 (L) 74.7 (L) MCH 26.0 - 34.0 pg 24.8 (L) 23.9 (L) MCHC 30.5 - 36.0 g/dL 32.7 32.0 RDW-CV 11.5 - 15.0 % 14.1 14.2 Platelet Count 150 - 400 k/uL 430 (H) 450 (H) MPV 9.0 - 12.7 fL 9.9 9.9 Absolute nRBC <0.01 k/uL <0.01 <0.01 Iron 41 - 186 ug/dL 18 (L) 28 (L) TIBC 232 - 386 ug/dL 402 (H) 363 Transferrin Saturation 15.0 - 57.0 % 4.5 (L) 7.7 (L) Ferritin 14.7 - 205.1 ng/mL 13.8 (L) ASSESSMENT/PLAN: (D50.0) Iron deficiency anemia due to chronic blood loss (primary encounter diagnosis) (K90.9) Iron malabsorption (N92.1) Menorrhagia with irregular cycle (Z86.2) History of anemia due to vitamin B12 deficiency Assessment: -The patient is a 28-year-old female with a history HMB. -VWD ruled out. I reviewed those labs with her. -Tolerates oral iron well, but remains iron deficient (worse as evidenced by lower ferritin) and therefore parenteral iron indicated. Potential benefit outweighs risk. Plan: -Iron sucrose x5 doses. -Continue oral iron since well tolerated. -Recheck CBC/Iron about 6 weeks after completing iron sucrose. -Recheck B12 at that time as well (h/o B12 deficiency and remains on metformin). -Follow up with gynecology. Portions of this documentation were copied and pasted from my previous office visit note dated 02/25/2024 in order to provide a cohesive continuity of the history. The note has been reviewed and edited and updated as necessary. Sridevi Ramirez DO documented in this encounter [facility] 05-28-2024 Note [facility] 05-28-2024 History of Present illness Narrative Sleep Study Check-In Documentation Date: May 28, 2024 Name: Sherin Sandoavl Comments: HST was returned in working order with all sleep questionnaires Samir Rosario Nomad # [id number], date shipped out 05-25-24 Fed Ex only Tracking mailout: [id number] Tracking return: [id number] May 21, 2024 Standing PSG Orders signed in the last 90 days None Future PSG Orders signed in the last 90 days Ordered Auth. provider HOME SLEEP APNEA TEST (HSAT) [[id number]] 05/20/24 Vikki Epstein MD Assoc. diagnoses: Malaise and fatigue [R53.81, R53.83], Class 3 severe obesity with body mass index (BMI) of 50.0 to 59.9 in adult, unspecified obesity type, unspecified whether serious comorbidity present (HCC) [E66.813, E66.01, Z68.43], Elevated blood pressure reading without diagnosis of hypertension [R03.0] Q: Indications: A: Obstructive sleep apnea Q: STOP-BANG conditions - Select All That Apply: A: BMI > 35 kg/m2 Q: Current use of supplemental oxygen during sleep period?: A: No CONSULT TO SLEEP MEDICINE - ADULT [[id number]] 05/20/24 Vikki Epstein MD Assoc. diagnoses: Malaise and fatigue [R53.81, R53.83], Class 3 severe obesity with body mass index (BMI) of 50.0 to 59.9 in adult, unspecified obesity type, unspecified whether serious comorbidity present (HCC) [E66.813, E66.01, Z68.43], Elevated blood pressure reading without diagnosis of hypertension [R03.0] Q: Does consulting provider have [facility] access?: A: Yes All Prior Sleep Studies (past 365 days) 05/20/2024 08:18 Sleep Studies HOME SLEEP APNEA TEST (HSAT) HOME SLEEP APNEA TEST (HSAT) Order Status: Ordered, Future Expires: 05/20/25 CONSULT TO SLEEP MEDICINE - ADULT CONSULT TO SLEEP MEDICINE - ADULT Order Status: Ordered, Future Expires: 05/20/25 BMI Readings from Last 2 Encounters: 05/20/24 : 49.22 kg/m 04/10/24 : 48.74 kg/m PAST MEDICAL HISTORY Diagnosis Date 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 attack Hypothyroidism Iron deficiency anemia Kidney stones The medical record was reviewed to determine if the proposed sleep study conforms to the [facility] Practice Parameters for the Indications for Polysomnography and Related Procedures, or if the sleep study is indicated for other reasons. Indications for study: JOSEPH suspected with comorbid medical or sleep disorders: Morbid obesity (BMI>40 kg/m2) Sleep study to be performed: Home Sleep Apnea Test (HSAT) Special instructions: None-follow laboratory protocol [facility] Staff Note: I have read the above protocol, edited as needed, and agree to the plan. Jan Santos III, PhD 7:12 PM, 05/21/2024 documented in this encounter [facility] 05-25-2024 Note HNO ID: [id number] Author: ?, ?, ? Service: ? Author Type: ? Type: Progress Notes Filed: 05/28/2024 10:40 Note Text: Nomad # [id number], date shipped out 05-25-24 Fed Ex only Tracking mailout: [id number] Tracking return: [id number] [facility] 05-21-2024 Note [facility] 05-20-2024 Instructions Vikki Epstein MD - 05/20/2024 8:41 AM EST Images from the original note were not included. Why People Diet, Lose Weight and Gain It All Back Plus 4 ways to break the cycle + maintain your weight loss You -- and your diet -- have been firing on all cylinders. The weight is melting off, and you re feeling your best. But then there is that seemingly inevitable backslide, with pound after pound creeping back on despite your best efforts. It s the ultimate Catch-22. But before you beat yourself up, director community center and obesity specialist Alonzo Marshall MD, has some welcome news: It s most likely not your fault. Your body is fighting to keep your weight as it was before the dieting, he says. But take heart -- it s possible to win the boo. What weight set point has to do with it Experts think as many as 80 to 95% of dieters gain back the weight they ve worked so hard to lose. Why? (WHY?!?) Dr. Marshall says the culprit is your weight set point : the weight your body is programmed to be. Your weight set point is a combination of several factors, including your: Genetics. Hormones. Behavior. Environment. Weight set point and metabolism play for the same team: Your metabolism roberts energy at a rate that will maintain your weight set point, even if that point is heavier than is healthy. Most of the time, weight gain is gradual, and that can raise your set point gradually, too, notes Dr. Marshall. But certain lifestyle changes can lower it. The perils of yo-yo dieting Beware of the quick-fix, Dr. Marshall warns. A fad diet won t change your set point. It s just restricting calories, he says. Your body is very efficient. You can successfully lose weight for a while, but at some point, your body simply adjusts to need fewer calories to function. Which means weight loss will eventually stop, unless you start eating even less than your diet calls for. (You can see where this is going.) Your body is also a survivor. As soon as calories drop, it starts doing everything in its power to prevent starvation, including: Ups the hunger hormone: Levels of the satiety hormone leptin (which controls how full you feel) decrease. Meanwhile, levels of the hunger hormone ghrelin increase. You feel hungrier, even after eating a normal meal. Makes you think, Oooh that looks good : Eating fewer calories alters how you think about and perceive food. Research shows dieters become hyper-focused on food and that it even smells and tastes better to them. These effects stick around for the long-term. Remember the television show The Biggest Loser? Contestants still felt the effects of their calorie deprivation six years later, making it harder to keep the weight off. Research tells us that yo-yo dieting can negatively affect your metabolism, Dr. Marshall says. It doesn t matter the diet: low-carb, low-fat, ketogenic, whatever. We see rebound weight gain almost every time. How to lose weight without gaining it back To maintain weight loss for good, Dr. Marshall advises focusing on these four areas: Diet. How can you create a healthy, long-term, bepsu-dcqn-lv diet? Learn what s healthy -- and what s not. (A wallcovering hanger or dietitian can help.) Practice portion control, even when eating healthy foods. Avoid empty calories, but treat yourself once in a while. Don t diet. Instead, focus on forming healthy habits for life. Exercise. Be an equal opportunity spout liner: Do both aerobic exercise (three to five times a week) and resistance training (two to three times nonconsecutively each week). Shoot for at least 25 to 35 minutes on most days. Exercise works best for staving off weight gain (not jumpstarting weight loss), so recognize that binging on exercise can be just as bad as binging on food. Exercise can make people super hungry, while it makes others tired and inactive, which can negate the activity they did, Dr. Marshall explains. But it s also important to remember the cardiovascular benefits of exercise, independent of weight loss. Exercise is always good and important, he says. Stress. Stress not only causes some people to eat more, but it also raises levels of the stress hormone cortisol. If you have more cortisol, you end up with higher insulin and lower blood sugar levels, Dr. Marshall says. (Cue the cravings.) To cope, put down the fork and try meditating or talking to a trusted friend. Sleep. Not getting enough sleep raises cortisol levels, too. It also affects decision-making (read: your ability to stick to healthy habits). Seven to nine hours every night is the magic number you need to help you manage stress. It also helps your body work with you -- and not against you -- when it comes to weight loss. https://health.[facility].org /tju-bkwqct-fjei-avyu-fupnlz-frg-g xcs-uy-twj-back/ Why People Diet, Lose Weight and Gain It All Back - [facility] Tips to reduce food cravings Aim to eat nutritionally balanced meals. Foods with protein and fiber provide longer-lasting satisfaction. Avoid long stretches of not eating. Eat a nutritious meal or snack every 3-4 hours. Waiting too long to eat because you are busy or distracted may only lead to stronger hunger when you do eat and the risk of overeating. Also keep in mind that if your bedtime is more than 4 hours after you ve finished dinner, you may feel hungry again; to avoid snacking late night which can disrupt sleep, try to go to bed earlier when possible. Avoid choosing hyperpalatable or ultraprocessed snacks that are high in sodium, fat, sugar, and calories but low in nutrition. These are the types of foods that trigger the brain reward pathways and cause cravings to eat more. Choose satisfying, less-processed snacks like fresh fruit, a handful of nuts, or a cup of low-sugar yogurt. Limit environmental cues to eat, such as scrolling through social media posts about food or [employer] (online videos of people eating enormous quantities of decadent meals) and watching television cooking shows. In an office setting, detour away from the candy bowls and platters of bagels and treats that may be sitting in the break room. Food cravings are sometimes learned behaviors that are associated with an event or environment, such as craving potato chips while watching late-night television. If so, research suggests that it is possible to unlearn the behavior and reduce the craving by avoiding the food completely for an extended time. [25] In addition, you can try changing the association by changing your evening routine with a different activity like listening to an audiobook or podcast. Practice mindfulness when sensing a growing craving. Ask yourself if you are stressed, bored, angry? If so, try instead doing breathing exercises, talking a brisk 5-10 minute walk, listening to a meditation inessa or podcast, or playing a few favorite songs. If you can distract yourself from eating for about 5-7 minutes, the craving may subside. Learn more about mindful eating. Try other dopamine-inducing activities such as taking a walk in nature on a alethea day, dancing, or watching a funny video and laughing aloud! Creating a Mindful Eating Environment: 10 Mindless Eating Solutions If you're looking for easier ways to make healthy changes to your diet and lifestyle, consider these simple mindless eating solutions for staying on-track with nutrition: Serve Salad and Vegetables First. Before bringing out your main dish, serve salad and vegetables first to ensure you're eating enough of this important food group. This strategy will also help you eat less of the rest of your dish which is likely higher in calories, etc. Serve Your Main [facility] on the Stove or Counter. Studies show that we're likely to eat less if our food is placed on the stove or counter rather than right in front of us. Eat on Smaller Plates. Similar to the strategy mentioned above, studies show that you're likely to consume less food if you're eating from a smaller plate. This is likely due to the increase of smaller portion sizes. Turn off Your Television. Watching television as you eat can be highly distracting, and it affects your ability to eat mindfully. For example: you're less likely to notice when you're full, so you might consume excess calories. Keep Mostly Water On-hand. Calories from drinks can add up quickly, especially in fruit juices, alcohol and soft drinks. By minimizing the amounts of those drinks on-hand, you're more likely to consume water when you're thirsty - and water has amazing health benefits! Keep Your Kitchen Organized. An organized refrigerator, counter and cabinet space makes you more likely to find and choose the foods which are healthiest for you. On the contrary, a messy kitchen space may make you more apt to grab the first item you see. Pre-cut Your Fruits and Vegetables. Let's admit it: We're more likely to put off eating produce if we have to go through the burden of cutting it first. Pre-cut fruits and vegetables will eliminate this extra step. Have at Least Six Single Servings of Lean Protein On-hand. This includes lean meats such as turkey and chicken, yogurt, eggs, nuts, beans and legumes. By having plenty of lean protein on-hand, you can better manage your appetite and hunger levels. Keep All Snack Foods in One Inconvenient Cupboard. You're less likely to reach for unhealthy snack foods if they're not all gazing up at you from plain sight! Keep Only a Fruit Bowl on Your Counter. This way, if you're one to grab foods based off of their availability, you'll reach for healthier fruits rather than less healthy snack foods. https://www.obesityaction.org/comm unity/news/community-news/create-a -uyvqanl-voexjh-rgfzhgglrti/ Five principles of a healthy diet While details may vary from diet to diet, all healthy eating plans have these five principles in common: 1. Lots of plants. Plant foods--vegetables, fruits, legumes, whole grains, nuts, and seeds--offer a wealth of vitamins and minerals, as well as fiber and healthful compounds called phytochemicals (literally plant chemicals, natural substances in plants that offer humans a range of health benefits, including antioxidant, anti-inflammatory, and even anti-cancer activity). At the same time, while many plant foods are high in nutrients, they are relatively low in calories. The combination of high nutrient content and low calories--a quality known as nutrient density--means that a plantheavy diet can be good for both health and weight loss. Because people often underestimate how large their portions of fruits and vegetables should be, [place] roll up helper devised the [place] Healthy Eating Plate (see Figure 1, at left) to provide a graphic representation of a healthy dinner. Fully half the plate contains produce. 2. Adequate protein. Abundant research shows it s important to eat enough protein, but there are many ways o get that protein, and some are more healthful than others. People who limit how much meat they eat tend to have lower risks or chronic diseases. Plant protein sources (beans, lentils, soy foods, nuts, seeds) and seafood offer the most health benefits. Getting enough protein, along with physical activity, is important for staying strong, healthy, and independent. 3. Minimally processed foods. A 2019 National Institutes of Health study definitively showed that eating a diet high in ultra-processed foods causes weight gain and unhealthy shifts in blood sugar and blood cholesterol. For the healthiest diet, rely as much as possible on whole foods (that is, unprocessed foods, such as broccoli, apples, and almonds) and minimally processed foods (such as plain yogurt, canned tuna, and naturalpeanut butter). Processing tends to strip away nutrients while adding extra fats, sugars, and sodium, not to mention other additives and preservatives. 4. Limited saturated fats, added sugars, and sodium. The U.[place]. government s Dietary Guidelines for Americans recommend limiting saturated fat intake to less than 10% of daily calories. The same goes for added sugars (sugars added during processing). If you have a 2,501-wywuecw-d-day diet, that means that no more than 200 calories a day should come from added sugars. As for sodium, keep it below 2,300 milligrams per day. The average [place] consumes more than 3,400 milligrams per day. 5. Balance. To meet nutrient needs, it s important to choose a variety of nutrient-dense foods across and within all food groups (see What the food groups do for you, page 10). Choosing nutrient-dense foods helps you get the nutrients you need without taking in too many calories. https://www.[facility].critical access hospital/nutri tionsource/hivxtqn-gfqnqe-bmryd/ [place] healthy Eating Plate: Make most of your meal vegetables and fruits - of your plate: Aim for color and variety, and remember that potatoes don t count as vegetables on the Healthy Eating Plate because of their negative impact on blood sugar. Go for whole grains - of your plate: Whole and intact grains--whole wheat, barley, wheat berries, quinoa, oats, brown rice, and foods made with them, such as whole wheat pasta--have a milder effect on blood sugar and insulin than white bread, white rice, and other refined grains. Protein power - of your plate: Fish, poultry, beans, and nuts are all healthy, versatile protein sources--they can be mixed into salads, and pair well with vegetables on a plate. Limit red meat, and avoid processed meats such as caceres and sausage. Healthy plant oils - in moderation: Choose healthy vegetable oils like olive, canola, soy, corn, sunflower, peanut, and others, and avoid partially hydrogenated oils, which contain unhealthy trans fats. Remember that low-fat does not mean healthy. Drink water, coffee, or tea: Skip sugary drinks, limit milk and dairy products to one to two servings per day, and limit juice to a small glass per day. Stay active: The red figure running across the Healthy Eating Plate s placemat is a reminder that staying active is also important in weight control. Recipe ideas https://www.[facility].critical access hospital/nutri tionsource/rytpblp-hbrwmouu-icti/ documented in this encounter [facility] 05-20-2024 History of Present illness Narrative Images from the original note were not included. Some documentation from previous visit of 04/10/2024 was copied and pasted, documentation has been reviewed and edited as necessary for today's visit. Patient Summary: Sherin is a 28 year old Female who presents for follow-up evaluation of obesity/weight management to treat and prevent related co-morbidities. In our previous visits we have discussed lifestyle intervention including a nutrition recommendations and physical activity optimization. Her last office visit was 6 weeks ago. Assessment/plan from last visit: - continue VIt D supplement (has not picked up rx, reordered) - Low carb, high protein, whole foods - reviewed protein goals and balancing btwn lunch and dinner- avoiding large carbohydrate load with dinner - declines BMI consult at this time - would like order for zepbound placed with insurance - if not covered- will order METFORMIN for insulin resistance - follow up with heme as scheduled for anemia - PCP to manage synthroid for hypothyroidism Interval History PT specifies the following items as new or significant updates since the last appointment: - did not do well over holidays- had soda - not tracking food, not measuring food. - does not always have lunch - dinner is too big- this is her struggle still. - has noticed food noise a lot - does not want to start any other medications at this time. - is moving a lot more during the day- trying to stay active as much as possible. - no issues with metformin Weight loss since last vist: +3 lbs, total weight lost: 3 lb - Last Wt 05/20/24: 289 lb 04/10/24: 286 lb Starting weight: 03/02/24 : 132.5 kg (292 lb 3.2 oz) 5% weight loss = 278 lbs, 10% weight loss = 263 lbs Anti-obesity medications: Tirzepatide (Zepbound)- didn't start- thinks it is covered when she checked insurance Benefit: Adverse effects: Anti-obesity medications: Metformin Benefit: insulin level Adverse effects:none Weight promoting medications: Other prozac, atarax Previous Diet (initial appointment): Awake - 7am B - bagel butter or fruit smoothie- frozen berries, kiwi, strawberries, yogurt plain, apple juice S - L - goldfish S - D - 5pm meat and mashed potato and peas, chicken burrito-rice, chicken and cheese, chicken and salad- olive garden dressing and croutons. Hamburger helpers S - ice cream (every other week) Fluids: 4-5 16oz bottles of water and fruit juice snapple (one per day), stopped soda about 1.5 yrs ago Bedtime -8-9 falls asleep an hour later Quality of diet: 24hr recall suggests in between diet. Characterization of diet:Unstructured, unhealthy snacking, excessive cravings, increased consumption of sugar sweetened beverages, and skip meals. 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 Eating Disorder no Cravings: sugar but only has about has about 1 every other week- better since gave up soda Dietary changes: B - protein shakes- premier S - L - doesn't always eat- but tries to have protein shake. Sometimes- chobani zero yogurt, salad olive garden dressing, croutons S - D -tends to eat big dinner- burgers, chicken wrap (rice, cheese)- (stopped hamburger helper), crockpot recipe - stew meat and potatoes S - Fluids - water, rootbeer (during holidays- will stop again) Trying to eat 3 meals a day, including breakfast Increasing water intake Increasing protein Reducing sugar-sweetened beverages Reducing carbohydrates Current Barriers: large portion sizes- DINNER Exercise: not regular but moving heather during the day Stress: Stress:yes , Cause:Personal Sleep: Duration: 8-9 hours. JOSEPH NO ; CPAP NO - STOP BANG > 3- BMI >35 , NECK 16inch, elevated BP, STOP BANG Questionnaire 1. Snoring Do you snore loudly (louder than talking or loud enough to be heard through closed doors)? NO 2. Tired Do you often feel tired, fatigued, or sleepy during daytime? YES 3. Observed Has anyone observed you stop breathing during your sleep? NO 4. Blood Pressure Do you have or are you being treated for high blood pressure? YES (elevated in office) 5. BMI BMI more than 35 kg/m2? YES and NO 6. Age Age over 50 yr old? NO 7. Neck circumference Neck circumference greater than 40 cm? YES 8. Gender Gender male? NO * Neck circumference is measured by staff High risk of JOSEPH: answering yes to three or more items Low risk of JOSEPH: answering yes to less than three items Estimated Creatinine Clearance: 144.8 mL/min (based on SCr of 0.77 mg/dL). PAST MEDICAL HISTORY Diagnosis Date 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 attack Hypothyroidism Iron deficiency anemia Kidney stones Current Outpatient Medications Medication Sig Dispense Refill cholecalciferol, Vitamin D3, (VITAMIN D3) 1,250 mcg (50,000 unit) cap capsule TAKE 1 CAPSULE BY MOUTH ONE TIME A WEEK. 12 capsule 1 metFORMIN ER (GLUCOPHAGE XR) 500 mg 24 hr tablet Take 2 tablets by mouth daily with dinner. 60 tablet 1 tirzepatide, weight loss (ZEPBOUND) 2.5 mg/0.5 mL pen injector Inject 2.5 mg subcutaneously one time a week. 2 mL 0 cholecalciferol, vitamin D3, (VITAMIN D3 ORAL) Take by mouth. segesterone ac-ethin estradiol (ANNOVERA) 0.15-0.013 mg/24 hour vaginal ring Insert 1 ring vaginally to remain in place for 24 days, then removed for 4 days and stored in case. One ring provides contraception for 13 cycles (1 year) 1 Each 0 ferrous sulfate (IRON ORAL) Take 2 tablets by mouth every other day. acetaminophen (TYLENOL EXTRA STRENGTH) 500 mg tablet Take 1,000 mg by mouth every 8 hours as needed. FLUoxetine (PROZAC) 20 mg capsule Take 1 capsule by mouth once daily. 90 capsule 1 busPIRone (BUSPAR) 15 mg tablet Take 1 tablet by mouth three times a day. 270 tablet 0 levothyroxine (SYNTHROID) 50 mcg tablet Take 1 tablet by mouth once daily. 90 tablet 1 hydrOXYzine HCl (ATARAX) 10 mg tablet Take 1 tablet by mouth two times a day as needed. 90 tablet 2 No current facility-administered medications for this visit. ROS has more energy but fatigue is there. ROS/Fam Hx pertaining to AOMs: GEN: Fatigue:yes CV: h/o palpitations/cardiac arrhythmia, Chest pain: yes, when her anemia is really bad. 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 Latest Ref Rng & Units 03/02/2024 CMP Sodium 136 - 144 mmol/L 137 Potassium 3.7 - 5.1 mmol/L 3.9 Chloride 98 - 107 mmol/L 103 CO2 22 - 30 mmol/L 24 Glucose 74 - 99 mg/dL 91 BUN 7 - 21 mg/dL 12 Creatinine 0.58 - 0.96 mg/dL 0.77 EGFR >=60 mL/min/1.73m 107 Protein, Total 6.3 - 8.0 g/dL 8.0 Albumin 3.9 - 4.9 g/dL 4.4 Calcium 8.5 - 10.2 mg/dL 9.4 Bilirubin, Total 0.2 - 1.3 mg/dL 0.4 AST 13 - 35 U/L 11 ALT 7 - 38 U/L 11 Alkaline Phosphatase 34 - 123 U/L 107 Cholesterol, Total (mg/dL) Date Value 03/02/2024 176 HDL Cholesterol (mg/dL) Date Value 03/02/2024 44 LDL Cholesterol (mg/dL) Date Value 03/02/2024 114 LDL Cholesterol, Nonfasting (mg/dL) Date Value 08/26/2023 88 Triglyceride (mg/dL) Date Value 03/02/2024 88 Latest Ref Rng & Units 05/11/2024 CBC WBC 3.70 - 11.00 k/uL 9.42 RBC 3.90 - 5.20 m/uL 5.11 Hemoglobin 11.5 - 15.5 g/dL 11.6 Hematocrit 36.0 - 46.0 % 37.9 MCV 80.0 - 100.0 fL 74.2 MCH 26.0 - 34.0 pg 22.7 MCHC 30.5 - 36.0 g/dL 30.6 RDW-CV 11.5 - 15.0 % 14.8 Platelet Count 150 - 400 k/uL 384 MPV 9.0 - 12.7 fL 9.5 Baso% % 0.6 Abs Neut (ANC) 1.45 - 7.50 k/uL 6.31 Abs Lymph 1.00 - 4.00 k/uL 2.39 Abs Freeborn <0.87 k/uL 0.44 Abs Eosin <0.46 k/uL 0.18 Abs Baso <0.11 k/uL 0.06 NRBC /100 WBC 0.0 Vitamin D 25 Hydroxy Date Value Ref Range Status 03/02/2024 9.6 (L) 31.0 - 80.0 ng/mL Final TSH (mIU/L) Date Value 11/04/2023 2.160 08/26/2023 3.610 ) Hemoglobin A1C (%) Date Value 03/02/2024 5.0 08/26/2023 4.9 Insulin Date Value Ref Range Status 03/02/2024 18.9 3.0 - 25.0 mU/L Final Assessment/Plan: Sherin Sandoval is a 28 year old yo with Class III obesity who presented today for follow up for supervised weight loss to treat and prevent related co-morbidities. (R53.81, R53.83) Malaise and fatigue (primary encounter diagnosis) (E88.819) Insulin resistance (R03.0) Elevated blood pressure reading without diagnosis of hypertension (E55.9) Vitamin D deficiency (E78.1) Hypertriglyceridemia (E03.9) Hypothyroidism, unspecified type (E66.813, E66.01, Z68.43) Class 3 severe obesity with body mass index (BMI) of 50.0 to 59.9 in adult, unspecified obesity type, unspecified whether serious comorbidity present (HCC) - continue VIt D supplement - Low carb, high protein, whole foods - reviewed protein goals and balancing btwn lunch and dinner- avoiding large carbohydrate load with dinner- discussed if has difficult time tracking and/or measuring food- recommend taking dinner and when on plate only eat half - accepts sleep medicine consult and study - accepts nutrition consult - zepbound- covered after 6 months of diet/exercise program (july?) - Increase Metformin to 1000mg XR BID - new RX given today - follow up with heme as scheduled for anemia - PCP to manage synthroid for hypothyroidism - importance of goal setting reviewed with patient - Recheck VIT D LEVEL next visit - An overall goal of 150-200 minutes per week of exercise has been effective in weight loss and maintenance. Prescription instructions reviewed with patient as applicable. Potential red flag symptoms discussed with the patient. Reviewed appropriate action plan to take if red flag symptoms occur. Patient agreeable to treatment plan. Follow up in 4 weeks (next 2 appts scheduled) I spent a total of 36 minutes on the date of the service which included preparing to see the patient, [id number] patient care, completing clinical documentation, obtaining and/or reviewing separately obtained history, performing a medically appropriate examination, counseling and educating the patient/family/caregiver, and ordering medications, tests, or procedures. Vikki Bell MD, FACOG, DABOM documented in this encounter [facility] 05-20-2024 Note [facility] 05-19-2024 Telephone encounter Note Prescription Refill Information The patient has been identified by name and date of : Yes Caregiver verified no other encounters exist for this prescription request: Yes Caregiver confirmed with patient/requestor that no other refills are due, in the near future, with this provider at this time: Yes The last office visit in the department: 10/22/2023 Does the patient have a future office visit with this provider/department: No Requested Prescriptions Pending Prescriptions Disp Refills busPIRone (BUSPAR) 15 mg tablet 270 tablet 0 Sig: Take 1 tablet by mouth three times a day. Nerissa Sheehan LPN May 19, 2024 8:30 AM [facility] 05-19-2024 Miscellaneous Notes Prescription Refill Information The patient has been identified by name and date of : Yes Caregiver verified no other encounters exist for this prescription request: Yes Caregiver confirmed with patient/requestor that no other refills are due, in the near future, with this provider at this time: Yes The last office visit in the department: 10/22/2023 Does the patient have a future office visit with this provider/department: No Requested Prescriptions Pending Prescriptions Disp Refills busPIRone (BUSPAR) 15 mg tablet 270 tablet 0 Sig: Take 1 tablet by mouth three times a day. Nerissa Sheehan LPN May 19, 2024 8:30 AM documented in this encounter [facility] 05-04-2024 Telephone encounter Note Request for 90 day Rx received from pharmacy. Patient last seen for weight management on 04/10/24. Allie Luna RN [facility] 05-04-2024 Miscellaneous Notes Request for 90 day Rx received from pharmacy. Patient last seen for weight management on 04/10/24. Allie Luna RN documented in this encounter [facility] 04-17-2024 Telephone encounter Note Patient notified. Riana Curiel RN [facility] 04-17-2024 Miscellaneous Notes Patient notified. Riana Curiel RN Left message for patient to call office. Tammy Flores RN Not covered- discussed at last visit we would at least try metformin- I will order this for her to start. Have her start with 500mg at dinner when she feels fine then increase to 1000mg. Eventually we will increase. Have her read [facility] message about medication. If she wants to add other med like we discussed please have her reach out. Patients Zepbound was denied. Plan states Your plan only covers this drug if you have been in a comprehensive weight management program for at least 6 months before starting this drug. We have denied your request because you have not been taking part in a comprehensive weight management program for at least 6 months. We reviewed the information we had. Your request has been denied. Miguel Ernst MA documented in this encounter [facility] 04-16-2024 Telephone encounter Note Left message for patient to call office. Tammy Flores RN [facility] 04-16-2024 Telephone encounter Note Not covered- discussed at last visit we would at least try metformin- I will order this for her to start. Have her start with 500mg at dinner when she feels fine then increase to 1000mg. Eventually we will increase. Have her read [facility] message about medication. If she wants to add other med like we discussed please have her reach out. [facility] 04-15-2024 Telephone encounter Note Patients Zepbound was denied. Plan states Your plan only covers this drug if you have been in a comprehensive weight management program for at least 6 months before starting this drug. We have denied your request because you have not been taking part in a comprehensive weight management program for at least 6 months. We reviewed the information we had. Your request has been denied. Miguel Ernst MA [facility] 04-10-2024 History of Present illness Narrative Images from the original note were not included. Some documentation from previous visit of 03/02/2024 was copied and pasted, documentation has been reviewed and edited as necessary for today's visit. Patient Summary: Sherin is a 28 year old Female who presents for follow-up evaluation of obesity/weight management to treat and prevent related co-morbidities. In our previous visits we have discussed lifestyle intervention including a nutrition recommendations and physical activity optimization. Her last office visit was 5 weeks ago. Assessment/plan from last visit: NOT CANDIDATE FOR PHENTERMINE OR TOPIRAMATE (ANXIETY AND STONES) -CONSIDER WELLBUTRIN/NALTREXONE IF GLP-1 NOT COVERED -LABS ORDERED WILL WAIT TO ORDER MEDICATION AFTER -NUTRITION REVIEWED - ONLY BASIC GOALS GIVEN- INITIAL VISIT GOALS WE DID DISCUSS HOW MUCH PROTEIN (90-200G AIM FOR 150G IF POSSIBLE) Interval History PT specifies the following items as new or significant updates since the last appointment: -has not started medications - found that was having an easy time in the beginning but getting harder - started bleeding again- seeing [employer] - Iron being monitored - bleeding controlled. Feeling more fatigued - does feel escalante with eating more protein as she was struggling to eat during the day - dinner still hard for her- always hungry and has large portion sizes - was tracking - tracking lunch and breakfast easy but tracking dinner hard- just guesses sometimes - was trying to save all carbs for dinner - was being more active - trying to walk more Weight loss since last vist: 6 lbs, total weight lost: 6 lb - Last Wt 04/10/24: 286 lb Starting weight: 03/02/24 : 132.5 kg (292 lb 3.2 oz) 5% weight loss = 278 lbs, 10% weight loss = 263 lbs Anti-obesity medications: Tirzepatide (Zepbound)- didn't start- thinks it is covered when she checked insurance Benefit: Adverse effects: Weight promoting medications: Other prozac, atarax Previous Diet (initial appointment): Awake - 7am B - bagel butter or fruit smoothie- frozen berries, kiwi, strawberries, yogurt plain, apple juice S - L - goldfish S - D - 5pm meat and mashed potato and peas, chicken burrito-rice, chicken and cheese, chicken and salad- olive garden dressing and croutons. Hamburger helpers S - ice cream (every other week) Fluids: 4-5 16oz bottles of water and fruit juice snapple (one per day), stopped soda about 1.5 yrs ago Bedtime -8-9 falls asleep an hour later Quality of diet: 24hr recall suggests in between diet. Characterization of diet:Unstructured, unhealthy snacking, excessive cravings, increased consumption of sugar sweetened beverages, and skip meals. 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 Eating Disorder no Cravings: sugar but only has about has about 1 every other week- better since gave up soda Dietary changes: B - protein shakes- premier S - L - chobani zero yogurt, salad olive garden dressing, croutons S - D - burgers, chicken wrap (rice, cheese)- (stopped hamburger helper), S - Fluids - Eating 3 meals a day, including breakfast Increasing water intake Increasing protein Reducing sugar-sweetened beverages Reducing carbohydrates Current Barriers: large portion sizes Exercise: not regular Stress: Stress:yes , Cause:Personal Sleep: Duration: 8-9 hours. JOSEPH NO ; CPAP NO Estimated Creatinine Clearance: 144.8 mL/min (based on SCr of 0.77 mg/dL). PAST MEDICAL HISTORY Diagnosis Date 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 attack Hypothyroidism Iron deficiency anemia Kidney stones Current Outpatient Medications Medication Sig Dispense Refill cholecalciferol, vitamin D3, (VITAMIN D3 ORAL) Take by mouth. segesterone ac-ethin estradiol (ANNOVERA) 0.15-0.013 mg/24 hour vaginal ring Insert 1 ring vaginally to remain in place for 24 days, then removed for 4 days and stored in case. One ring provides contraception for 13 cycles (1 year) 1 Each 0 ferrous sulfate (IRON ORAL) Take 2 tablets by mouth every other day. acetaminophen (TYLENOL EXTRA STRENGTH) 500 mg tablet Take 1,000 mg by mouth every 8 hours as needed. FLUoxetine (PROZAC) 20 mg capsule Take 1 capsule by mouth once daily. 90 capsule 1 busPIRone (BUSPAR) 15 mg tablet Take 1 tablet by mouth three times a day. 270 tablet 0 levothyroxine (SYNTHROID) 50 mcg tablet Take 1 tablet by mouth once daily. 90 tablet 1 hydrOXYzine HCl (ATARAX) 10 mg tablet Take 1 tablet by mouth two times a day as needed. 90 tablet 2 No current facility-administered medications for this visit. ROS has more energy but fatigue is there. ROS/Fam Hx pertaining to AOMs: GEN: Fatigue:yes CV: h/o palpitations/cardiac arrhythmia, Chest pain: yes, when her anemia is really bad. 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 Latest Ref Rng & Units 03/02/2024 CMP Sodium 136 - 144 mmol/L 137 Potassium 3.7 - 5.1 mmol/L 3.9 Chloride 98 - 107 mmol/L 103 CO2 22 - 30 mmol/L 24 Glucose 74 - 99 mg/dL 91 BUN 7 - 21 mg/dL 12 Creatinine 0.58 - 0.96 mg/dL 0.77 EGFR >=60 mL/min/1.73m 107 Protein, Total 6.3 - 8.0 g/dL 8.0 Albumin 3.9 - 4.9 g/dL 4.4 Calcium 8.5 - 10.2 mg/dL 9.4 Bilirubin, Total 0.2 - 1.3 mg/dL 0.4 AST 13 - 35 U/L 11 ALT 7 - 38 U/L 11 Alkaline Phosphatase 34 - 123 U/L 107 Cholesterol, Total (mg/dL) Date Value 03/02/2024 176 HDL Cholesterol (mg/dL) Date Value 03/02/2024 44 LDL Cholesterol (mg/dL) Date Value 03/02/2024 114 LDL Cholesterol, Nonfasting (mg/dL) Date Value 08/26/2023 88 Triglyceride (mg/dL) Date Value 03/02/2024 88 Latest Ref Rng & Units 03/10/2024 CBC WBC 3.70 - 11.00 k/uL 7.50 RBC 3.90 - 5.20 m/uL 4.92 Hemoglobin 11.5 - 15.5 g/dL 11.4 Hematocrit 36.0 - 46.0 % 36.5 MCV 80.0 - 100.0 fL 74.2 MCH 26.0 - 34.0 pg 23.2 MCHC 30.5 - 36.0 g/dL 31.2 RDW-CV 11.5 - 15.0 % 15.2 Platelet Count 150 - 400 k/uL 394 MPV 9.0 - 12.7 fL 9.9 Baso% % 1.1 Abs Neut (ANC) 1.45 - 7.50 k/uL 4.30 Abs Lymph 1.00 - 4.00 k/uL 2.50 Abs Freeborn <0.87 k/uL 0.44 Abs Eosin <0.46 k/uL 0.17 Abs Baso <0.11 k/uL 0.08 NRBC /100 WBC 0.0 Vitamin D 25 Hydroxy Date Value Ref Range Status 03/02/2024 9.6 (L) 31.0 - 80.0 ng/mL Final TSH (mIU/L) Date Value 11/04/2023 2.160 08/26/2023 3.610 ) Hemoglobin A1C (%) Date Value 03/02/2024 5.0 08/26/2023 4.9 Insulin Date Value Ref Range Status 03/02/2024 18.9 3.0 - 25.0 mU/L Final Assessment/Plan: Sherin Sandoval is a 28 year old yo with Class III obesity who presented today for follow up for supervised weight loss to treat and prevent related co-morbidities. (R53.81, R53.83) Malaise and fatigue (primary encounter diagnosis) (E88.819) Insulin resistance (E55.9) Vitamin D deficiency (E78.1) Hypertriglyceridemia (E03.9) Hypothyroidism, unspecified type (E66.813, E66.01, Z68.43) Class 3 severe obesity with body mass index (BMI) of 50.0 to 59.9 in adult, unspecified obesity type, unspecified whether serious comorbidity present (HCC) - continue VIt D supplement (has not picked up rx, reordered) - Low carb, high protein, whole foods - reviewed protein goals and balancing btwn lunch and dinner- avoiding large carbohydrate load with dinner - declines BMI consult at this time - would like order for zepbound placed with insurance - if not covered- will order METFORMIN for insulin resistance - follow up with heme as scheduled for anemia - PCP to manage synthroid for hypothyroidism - An overall goal of 150-200 minutes per week of exercise has been effective in weight loss and maintenance. Prescription instructions reviewed with patient as applicable. Potential red flag symptoms discussed with the patient. Reviewed appropriate action plan to take if red flag symptoms occur. Patient agreeable to treatment plan. Follow up in 4 weeks (next 2 appts scheduled) I spent a total of 36 minutes on the date of the service which included preparing to see the patient, [id number] patient care, completing clinical documentation, obtaining and/or reviewing separately obtained history, performing a medically appropriate examination, counseling and educating the patient/family/caregiver, and ordering medications, tests, or procedures. Vikki Bell MD, FACOG, MOISES documented in this encounter [facility] 04-10-2024 Note [facility] 04-10-2024 Instructions Vikki Epstein MD - 04/10/2024 11:56 AM EST 14 Ways to Lower Your Insulin Levels Insulin is an extremely important hormone that s produced by your pancreas. It has many functions, such as allowing your cells to take in sugar from your blood for energy. However, living with chronically high levels of insulin, also known as hyperinsulinemia, can lead to excessive weight gain and serious health problems like heart disease and cancer (1, 2, 3). High blood insulin levels can also cause your cells to become resistant to the hormone s effects. This condition, known as insulin resistance, leads your pancreas to produce even more insulin, creating a precarious cycle (4). If your doctor has advised you to lower your insulin levels, here are 14 things you can do. 1. Follow a lower-carb eating plan Of the three macronutrients -- carbohydrates, protein, and fat -- carbs raise blood sugar and insulin levels the most. Even though carbs are an essential part of most balanced, nutritious diets, lower-carb diets can be very effective for losing weight and managing diabetes (5, 6). Many studies have confirmed the effectiveness of lower-carb eating plans for lowering insulin levels and increasing insulin sensitivity, especially when compared with other diets. People living with health conditions characterized by insulin resistance, such as metabolic syndrome and polycystic ovary syndrome (PCOS), may experience a dramatic lowering of insulin with carb restriction (6, 7, 8). In a smaller study from 2008, people with metabolic syndrome were randomized to receive either a low fat or low carb diet containing 1,500 calories (9). Insulin levels dropped by an average of 50% in the low carb group, compared with 19% in the low fat group. Those on the low carb diet also lost more weight (9). In another small study from 2012, when people with PCOS ate a lower-carb diet containing enough calories to maintain their weight, they experienced greater reductions in insulin levels than when they ate a higher-carb diet (10). Summary While carbohydrates are typically an important part of a balanced diet, lower-carb diets have been shown to increase insulin sensitivity and reduce insulin levels in people living with obesity, diabetes, metabolic syndrome, and PCOS. 2. Consider supplementing with apple cider vinegar Apple cider vinegar (ACV) may help prevent insulin and blood sugar spikes after eating, particularly when consumed with high carbohydrate foods (11). One review found that consuming 2-6 tablespoons of vinegar daily appears to improve glycemic response to carbohydrate-rich meals. It s important to note, however, that this review incorporated studies that used other forms of vinegar in addition to ACV (12). Another review of studies found that consuming vinegar with meals affects both blood glucose and insulin levels. Individuals consuming vinegar with meals had lower blood sugar and insulin levels than those who didn t consume it. But again, this review did not specify ACV (13). A third review of studies from 2020 specifically targeted ACV analyzed its effect on glycemic control in adults (14). The researchers found that consuming ACV significantly decreased fasting blood sugar and HbA1C (a measure of blood sugar over time). However, ACV did not seem to affect fasting insulin levels or insulin resistance (14). Summary Vinegar may help ease high blood sugar and insulin levels after meals, particularly when those meals are high in carbs. However, results are mixed and more research is needed -- especially around apple cider vinegar in particular. 3. Keep an eye on portion sizes Your pancreas releases different amounts of insulin depending on the type of food you eat, but eating a large amount of foods that cause your body to produce extra insulin can eventually lead to hyperinsulinemia. This is of particular concern for people who are already living with obesity and insulin resistance (15). In one small 2017 study, otherwise healthy people classified as having either a normal BMI or a higher BMI each ate meals with different glycemic loads for a few days. Researchers found that while the meals with a higher glycemic load (those with more sugar and carbs) spiked everyone s blood sugar, the blood sugar of individuals with BMIs in the obese category stayed elevated longer (16). Consuming fewer calories has consistently been shown to increase insulin sensitivity and decrease insulin levels in people living with excess weight and obesity, regardless of the type of diet they consume (17, 18, 19, 20). One small study from 2011 analyzed different weight loss methods in 157 people living with metabolic syndrome, which is a group of conditions that include a larger waist circumference and high blood sugar (19). The researchers found that fasting insulin levels decreased by 16% in the group that practiced calorie restriction and 12% in the group that practiced portion control (19, 21). Even though calorie restriction has been shown to ease excess insulin levels, It s a good idea to seek the help of a wallcovering hanger or doctor before making any dietary changes to be sure you aren t missing out on any important macro or micronutrients. Summary Reducing calorie intake can help lower insulin levels in people living with excess weight or obesity who have type 2 diabetes or metabolic syndrome. 4. Lower your intake of all forms of sugar Sugar may very well be the most important ingredient to keep an eye on if you re trying to lower your insulin levels. Diets high in added sugar are associated with insulin resistance and may promote the development of metabolic disease (22). In a small study from 2008, otherwise healthy people were tasked with eating an increased amount of either candy (sugar) or peanuts (fat). The candy group experienced a 31% increase in fasting insulin levels, while the peanut group had a 12% increase (23). In another small study from 2013, otherwise healthy adults consumed jams containing varying amounts of sugar. The adults who consumed high sugar jams saw their insulin levels rise significantly as compared with those who ate the lower-sugar jams (24). Fructose is a type of natural sugar found in table sugar, honey, fruit, corn syrup, agave, and syrup. While some studies have singled out fructose as particularly harmful for blood sugar control and insulin resistance, there isn t enough evidence to suggest fructose is more harmful than other types of sugars when consumed in moderate amounts (25). Indeed, one study found that replacing glucose or sucrose with fructose actually lowered peak post-meal blood sugar and insulin levels, especially in people with prediabetes or type 1 or type 2 diabetes (26). Summary A high intake of sugar in any form has been shown to increase insulin levels and promote insulin resistance if consumed for a length of time. 5. Prioritize physical activity Engaging in regular physical activity can have powerful insulin-lowering effects. Aerobic exercise appears to be very effective at increasing insulin sensitivity in people living with obesity or type 2 diabetes (27, 28, 29). One study looked at the effect of sustained aerobic exercise versus high intensity interval training on metabolic fitness in men with obesity (29). Although both groups experienced improvements in fitness, only the group that performed sustained aerobic activity experienced significantly lower insulin levels (29). There s also research showing that resistance training can help decrease insulin levels in older adults and people who are more sedentary (30, 31). And lastly, combining aerobic and resistance exercise may be the best choice when it comes to positively affecting insulin sensitivity and levels (32, 33). Summary Aerobic exercise, strength training, or a combination of both may help lower insulin levels and increase insulin sensitivity. 6. Try adding cinnamon to foods and beverages Cinnamon is a delicious spice loaded with health-promoting antioxidants. Recent studies suggest that both individuals living with insulin resistance and those with relatively normal insulin levels who supplement with cinnamon may experience enhanced insulin sensitivity and decreased insulin levels (34, 35, 36). In one small, well-designed study, women with PCOS who took 1.5 grams of cinnamon powder daily for 12 weeks had significantly lower fasting insulin and insulin resistance than women who took a placebo (35). In another small, well-designed study, individuals living with type 2 diabetes who took 500 mg of cinnamon powder twice daily for 3 months had lower fasting insulin and insulin resistance than those who took a placebo (34). Improvements in insulin and insulin sensitivity were most pronounced for individuals with higher BMIs (34). It s important to note that there is no recommended dose of cinnamon that has been tested across the board, and not all studies have found that cinnamon helps lower insulin levels or increases insulin sensitivity. Cinnamon s effects may vary from person to person (37, 38). Summary Some studies have found that adding cinnamon to foods or beverages lowers insulin levels and increases insulin sensitivity, but results are mixed. 7. When eating carbs, choose complex carbs While complex carbs are an important part of a nutritious diet, refined or simple carbs don t usually contain a lot of fiber or micronutrients and are digested very quickly. Refined carbs include simple sugars as well as grains that have had the fibrous parts removed. Some examples are cereal with added sugar, highly processed fast foods, foods made with refined flour like certain breads and pastries, and white rice (39). Regularly consuming refined carbs can lead to several health problems, including high insulin levels and weight gain (40, 41). Furthermore, refined carbs have a high glycemic index (GI). The GI is a scale that measures a specific food s capacity to raise blood sugar. Glycemic load takes into account a food s glycemic index and the amount of digestible carbs contained in a serving (42). Some studies comparing foods with different glycemic loads have found that eating a qbua-vyyanazm-dxwc food raises insulin levels more than eating the same portion of a brh-bejsayjn-nthk food, even if the carb contents of the two foods are similar (43, 44). However, other studies comparing dumy-pueqhyhj-npnh and dxxq-rpbmsquw-yzpeq diets with xnm-hahuxjdv-ntzd and axj-zkvoekae-xvtlm diets have found no difference in their effects on insulin levels or insulin sensitivity (45, 46). Summary Replacing refined carbs, which are digested quickly and can sharply raise blood sugar, with slower-digesting complex carbs and whole grains may help lower insulin levels. 8. Increase your overall activity level Living an active lifestyle can help reduce insulin levels. A 2005 study of more than 1,600 people found that the most sedentary people (who didn t spend free time engaged in moderate or vigorous activity) were nearly twice as likely to have metabolic syndrome as those who did at least 150 minutes of moderate activity per week (47). Other studies have shown that getting up and walking around, rather than sitting for prolonged periods, can help keep insulin levels from spiking after a meal (48). One study looked at the effect of physical activity on insulin levels in men with extra weight who were at risk for type 2 diabetes. Those who took the most steps per day had the greatest reduction in insulin levels and belly fat compared with those who took the fewest steps (49). Summary Avoiding sitting for prolonged periods and increasing the amount of time you spend walking or doing other moderate activities may help reduce insulin levels. 9. Consider intermittent fasting Intermittent fasting (an eating plan where you have set hours for eating and set hours for fasting during a 24-hour period) has been popping up in headlines recently, specifically around its possible weight loss benefits. Research also suggests intermittent fasting may help reduce insulin levels as effectively as or more effectively than daily calorie restriction (50, 51). A 2019 study compared alternate-day fasting with calorie restriction in adults with extra weight or obesity and insulin resistance (52). Those using alternate-day fasting for 12 months had greater reductions in fasting insulin and insulin resistance than those who restricted their calorie intake, as well as those in the control group (52). Although many people find intermittent fasting beneficial and enjoyable, it doesn t work for everyone and may cause problems in some people. A doctor or wallcovering hanger can help you figure out whether intermittent fasting is right for you and how to do it safely. Summary Intermittent fasting may help reduce insulin levels. However, more research needs to be done, and this way of eating may not suit everyone. 10. Increase soluble fiber intake Soluble fiber provides a number of health benefits, including aiding in weight loss and reducing blood sugar levels. After you eat, the soluble fiber in food absorbs water and forms a gel, which slows down the movement of food through your digestive tract. This promotes feelings of fullness and keeps your blood sugar and insulin from rising too quickly after a meal (53, 54). One observational study from 2013 found that individuals assigned female at who ate the most soluble fiber were half as likely to be insulin-resistant as individuals assigned female who ate the least soluble fiber (55). Soluble fiber also helps feed the friendly bacteria that live in your colon, which may improve gut health and reduce insulin resistance. In a 6-week controlled study of older women with obesity, those who took flaxseed (which contains soluble fiber) experienced greater increases in insulin sensitivity and lower insulin levels than women who took a probiotic or placebo (56). Overall, fiber from whole foods appears to be more effective at reducing insulin than fiber in supplement form, although results are mixed. One study found that insulin decreased when people consumed black beans but not when they took a fiber supplement (57). Summary Soluble fiber, especially from whole foods, has been shown to increase insulin sensitivity and lower insulin levels, particularly in people living with obesity or type 2 diabetes. 11. Concentrate on weight loss, if advised The distribution of fat throughout your body is determined by age, sex hormones, and genetic variation (58). An overabundance of belly fat -- also known as visceral or abdominal fat -- in particular is linked to many health issues. Visceral fat can promote inflammation and insulin resistance, which drives hyperinsulinemia (59, 60, 61). A small study from 2013 suggests that losing visceral fat can lead to increased insulin sensitivity and lower insulin levels (62). Interestingly, another small study from 2013 found that people who lost abdominal fat retained the benefits for insulin sensitivity even after regaining a portion of the belly fat (63). There is no way to specifically target visceral fat when losing weight. However, visceral fat loss is linked to subcutaneous fat loss, so when you lose weight in general, you ll likely also lose visceral fat. Furthermore, studies show that when you lose weight, you lose a higher percentage of visceral fat than fat throughout the rest of your body (64). If your doctor has advised you to lose weight, talk with them about the best weight loss program for you. Summary If your doctor advises you to do so, losing visceral fat can increase insulin sensitivity and help reduce your insulin levels. While you can t target visceral fat specifically, when you lose weight overall, you lose visceral fat as well. 12. Incorporate green tea into your diet Green tea contains high amounts of an antioxidant known as epigallocatechin gallate (EGCG), which may help fight insulin resistance (65, 66, 67). In a 2016 study, postmenopausal individuals living with obesity and high insulin levels who took green tea extract experienced a small decrease in insulin over 12 months, while those who took a placebo had increased insulin levels following the intervention (66). In a 2013 review, researchers reported that green tea appeared to significantly lower fasting insulin levels in high quality studies (67). However, there are other high quality studies on green tea supplementation that have not shown a reduction in insulin levels or increased insulin sensitivity (68). Summary Several studies have found that green tea may increase insulin sensitivity and decrease insulin levels, but results are mixed. 13. Eat more fatty fish There are many reasons to consume fatty fish like salmon, sardines, mackerel, sung, and anchovies. They provide high quality protein and are some of the best sources of long-chain omega-3 fats, which offer many health benefits (69). Studies have shown that the omega-3s in fatty fish may also help reduce insulin resistance in people living with obesity, gestational diabetes, and PCOS (70, 71, 72). According to the U.S. Department of Health and Human Service s Dietary Guidelines for Americans, adults can safely consume at least 8 ounces of seafood per week (based on a 2,000-calorie diet). Young children should eat less. People who are or should eat 8-12 ounces of a variety of seafood per week, choosing options that are lower in mercury (73). While eating fish is typically recommended over taking supplements for a variety of reasons (more omega-3s aren t always better, and fish has additional nutrients and vitamins), fish oil supplements are sold widely in stores and are often used in studies. These supplements contain the same long-chain omega-3 fats as the fish itself, but the effective dosage has not yet been determined (74). Despite the need for more research, fish oil has been shown to support healthy blood sugar. One small 2011 study in individuals with PCOS found a significant 8.4% decrease in insulin levels in a group who took fish oil, compared with a group who took a placebo (71). Another study from 2013 found that children and adolescents with obesity who took fish oil supplements significantly reduced their insulin resistance and triglyceride levels (72). Finally, a review of 17 studies found that taking fish oil supplements is associated with increased insulin sensitivity in people living with metabolic disorders (75). Summary The long-chain omega-3s in fatty fish may help reduce insulin resistance and insulin levels, especially in those with metabolic disorders. While fish oil supplements are sold widely and often used in studies, the effective dosing has not yet been determined. 14. Get the right amount and type of protein Consuming adequate protein at meals can be beneficial for controlling your weight and insulin levels. In a small study from 2014, premenopausal individuals living with obesity had lower insulin levels after consuming a high protein breakfast compared with a low protein breakfast. They also felt escalante and ate fewer calories at lunch (76). However, protein stimulates insulin production so that your muscles can take up amino acids. Therefore, eating very high amounts over a prolonged period may lead to higher insulin levels in otherwise healthy individuals (77). A larger study from 2018 sheds some light on these diverging results: When it comes to protein, dietary patterns are important. For instance, researchers found that individuals who ate a majority of plant proteins were less likely to develop type 2 diabetes, while individuals who ate a lot of protein in the form of red meat had a greater likelihood of living with or developing type 2 diabetes (78). So while protein is important, eating a variety of protein that isn t overly processed and is nutrient-dense is even more important. https://www.[employer]/nutriti on/14-duzg-hr-lower-insulin A Short Walk After Meals Is All It Takes to Lower Blood Sugar Researchers studying older adults with pre-diabetes found that 15 minutes of tbjf-hz-abjrhbux exercise after every meal curbed risky blood sugar spikes all day. Seniors are more prone to developing diabetes, but a little exercise could make a big difference. A study published today in Diabetes Care found that three short walks each day after meals were as effective at reducing blood sugar over 24 hours as a single 45-minute walk at the same moderate pace. Even better, taking an evening constitutional was found to be much more effective at lowering blood sugar following supper. The evening meal, often the largest of the day, can significantly raise 24-hour glucose levels. The innovative exercise science study was conducted at the Clinical Exercise Physiology Laboratory at the [facility] ([facility]) using whole room calorimeters. Sanam Kingsley, Ph.D., chair of the [facility] Department of Exercise Science, led the study. These findings are good news for people in their 70s and 80s who may feel more capable of engaging in intermittent physical activity on a daily basis, Sancho said in a press release. Putting Humans in a Box to Measure Their Energy Use The whole room calorimeter (WRM), which looks like a very small hotel room, is a controlled-air environment for human study that allows scientists to calculate a person s energy expenditure by testing samples of air. The balance of oxygen consumed and carbon dioxide produced varies according to the activity level of the person in the room. The WRM also measures the body s use of different food fuels, such as carbohydrates, proteins, and fats. The 10 study participants spent three 48-hour periods in the small calorimeter rooms. Each room was equipped with a bed, toilet, sink, treadmill, television, and computer, leaving little room to move around. Participants ate standardized meals, and their blood sugar levels were monitored continuously using blood tests. The first day in the [facility] served as a control period, with no exercise. On the second day, participants either walked at a moderate pace on the treadmill for 15 minutes after each meal, or for 45 minutes in either the late morning or before supper. The researchers observed that the evening post-meal walk was the most effective in lowering blood sugar levels for a full 24 hours. The typical exaggerated rise in blood sugar after supper--which often lasts well into the night and racetrack steward--was curbed significantly as soon as the participants started to walk on the treadmill, the study authors said. How Age Affects Insulin Resistance An estimated 79 million Americans have pre-diabetes, according to the National Diabetes Education Program run by the National Institutes of Health. But many people have no idea they are at risk. According to Sancho, older people may be particularly susceptible to poor blood sugar control after meals because inactive muscles contribute to insulin resistance. The problem is compounded by slow or low insulin secretion by the pancreas, which often occurs as the body ages. Post-meal high blood sugar is a lehman risk factor in the progression from impaired glucose tolerance (pre-diabetes) to type 2 diabetes and cardiovascular disease, Sancho explained. Other studies have suggested that weight loss and exercise can prevent type 2 diabetes. The authors say theirs is the first study to examine short bouts of physical activity timed around the risky period following meals--a time when blood sugar can rise rapidly and potentially cause damage to internal organs and blood vessels. The muscle contractions connected with short walks were immediately effective in blunting the potentially damaging elevations in post-meal blood sugar commonly observed in older people, Sancho said. If the findings of this small study hold up to further testing, it could lead to an inexpensive prevention strategy for pre-diabetes, which can develop over time into type 2 diabetes. Back in the day, it was de rigueur to take a morning, noon, and evening walk. The time has come to get up from the table, tie on those walking shoes, and take a little stroll around the block. https://www.[employer]/health- news/txour-mzeblfl-fzwkv-meals-to- rfnrcai-nivyp-vxnun-spikes-014770 Creating a Mindful Eating Environment: 10 Mindless Eating Solutions If you're looking for easier ways to make healthy changes to your diet and lifestyle, consider these simple mindless eating solutions for staying on-track with nutrition: Serve Salad and Vegetables First. Before bringing out your main dish, serve salad and vegetables first to ensure you're eating enough of this important food group. This strategy will also help you eat less of the rest of your dish which is likely higher in calories, etc. Serve Your Main [facility] on the Stove or Counter. Studies show that we're likely to eat less if our food is placed on the stove or counter rather than right in front of us. Eat on Smaller Plates. Similar to the strategy mentioned above, studies show that you're likely to consume less food if you're eating from a smaller plate. This is likely due to the increase of smaller portion sizes. Turn off Your Television. Watching television as you eat can be highly distracting, and it affects your ability to eat mindfully. For example: you're less likely to notice when you're full, so you might consume excess calories. Keep Mostly Water On-hand. Calories from drinks can add up quickly, especially in fruit juices, alcohol and soft drinks. By minimizing the amounts of those drinks on-hand, you're more likely to consume water when you're thirsty - and water has amazing health benefits! Keep Your Kitchen Organized. An organized refrigerator, counter and cabinet space makes you more likely to find and choose the foods which are healthiest for you. On the contrary, a messy kitchen space may make you more apt to grab the first item you see. Pre-cut Your Fruits and Vegetables. Let's admit it: We're more likely to put off eating produce if we have to go through the burden of cutting it first. Pre-cut fruits and vegetables will eliminate this extra step. Have at Least Six Single Servings of Lean Protein On-hand. This includes lean meats such as turkey and chicken, yogurt, eggs, nuts, beans and legumes. By having plenty of lean protein on-hand, you can better manage your appetite and hunger levels. Keep All Snack Foods in One Inconvenient Cupboard. You're less likely to reach for unhealthy snack foods if they're not all gazing up at you from plain sight! Keep Only a Fruit Bowl on Your Counter. This way, if you're one to grab foods based off of their availability, you'll reach for healthier fruits rather than less healthy snack foods. https://www.obesityaction.org/comm unity/news/community-news/create-a -iofflhx-xhkvoz-lnuzwexvdxa/ 10 Easy Ways to Increase Your NEAT (Non-exercise activity thermogenesis) One of the best ways to lose those those extra pounds for good and keep it off is to make daily habit changes that can help burn those extra calories during activities you would normally do regardless. What I am talking about is increasing your NEAT. What is NEAT? It is Non-exercise activity thermogenesis. It is the activity that you are able to add into your daily routine outside of the gym that can help you in the long run. It can help you lose those ten pounds not this month, but over the next 12 months. In the grand scheme of things, would you not want to be ten pounds production team advisor come next year? Now it is time for me to show you how. For a moment, imagine for me that you we are back before you started going to the gym. Imagine you were slowly gaining about a pound every two to three months. After 3 years of not exercising or working out you realized you are 10 pound heavier. All your clothes feel a little tighter and you just do not feel good in your own skin like how you used to. One day climbing up a flight of stairs you become way too easily winded, and not just that, but your knees are hurting. For some people, this is all too real. That was the wake up call to go to the gym to start exercising. Yet, why do you exercise when you gain weight? The reason is because you were taught that when you begin exercising, you begin to lose the weight you previously put on. The reason for the weight loss is because you have started to burn more calories compared to what you have consumed through your diet. When it comes to fat loss, you want to have a calorie deficit of about 500 calories a day so that about after a week you will be 3500 calories short. Your body is naturally programmed then to pull those calories of energy out of your stored fat. One pound of fat is roughly equal to 3500 calories. So when you burn those calories at the gym and create that calorie deficit you are burning through that stored fat. Another way you can create a calorie deficit is by changing up your diet. If you reduce the calories you eat by a small margin to create a 500 calories deficit then the same result will happen of burning a pound of stored body fat for every 3500 calories you did not eat that you may normally would have. Now finally for NEAT to come into play. We are going through your normal daily life but now you add some extra Non-exercise activity thermogenesis. You add some daily habits that helped you burn extra calories throughout your day. These extra calories that you burn add to your total daily energy expenditure which means that instead of those calories you were eating becoming stored as fat, you burned those calories, without even stepping into a gym. That is the power of NEAT. Sadly, most individuals do not know of the power of NEAT so most people do gain those ten pounds. Still, NEAT can help you lose that weight gained. Let s say now that you know the power of NEAT you want to incorporate it as part of your daily life and habits with that a positive change of dietary habits and a new exercise program. So let us say you are at the gym going three times a week and hike once a week burning a total of 2500 calories at the end of the week. With that you are improving your eating habits and diet and that has created an additional 2000 calories deficit at the end of the week. So so far a nice sum total of 4500 calories burned in just a single week. Now with a little magical NEAT you add just 100 calories a day of extra activity into your life and therefore an extra 700 calories that you burned in one week! So now you have 5200 calories a week burned between your diet, exercise, and nonexercise activity. Now over a course of a month you have 28,000 calories burned. Over three months time you have 84,000 calories. If you were to burn and have a calories deficit of 84,000 calories that is a sum total of 24 pounds lost! Now if you did not include NEAT into that math you would have lost 21.6 pounds. Still a great amount lost, but after a year you are missing out on those extra 10 pounds you could have lost by barely making a change. Here are 10 examples of NEAT to help you lose weight: WALKING: Walking is an easy activity nearly every one of us can accomplish. All we have to do is increase the number of steps we walk everyday and over time the extra energy used comes from our stores fat. It is also fairly simple to increase the number of steps you walk throughout the day. You can park your car down the street from your house. You can park at the farthest spot when shopping. You can go for an easy morning walk while you sip your morning cup of Caleb. All the steps will add up over time. COOKING: Most of us cook at least one meal throughout the day. During this time you can add in some simple movements. When I cook, I like to squat deep when I grab a melissa out of the cabinet. When I m reaching for the spices on the shelf I throw in a push-up. When I m waiting for the vegetables to steam I simply bounce or fidget in place while reading or going on social media. The point is while I m coming I am not standing still. For those times I m eating out, I will fidget in line by bouncing on one foot for a bit then switch it up. Sometimes I ll squat while waiting for my coffee. Again, the point is I keep moving. TELEVISION: I watch TV. I would even be lying to you if I said I hardly watch TV. I would be lying to you if I said I sit or lay down and watch TV. When watching my programs or sports on TV I am stretching. I lay down and stretch out my muscles. I ll use the couch as a steady surface to stretch my back out, my shoulders out, my legs out. I never just sit down and watch TV. I stretch and stay active and honestly it is one of the best habits I have created. It has helped me stay loose and I no longer feel guilty about watching TV. It is a win win. Morning Routine: Everyone has a morning routine that they go through during their work week. This is an easy time to add some extra movement to your day. The moment you get out of bed, do some push-ups. You do not even have to define a specific amount. Just drop down and give me however many you feel like. When you go to start the coffee pot, I want you to give me some jumping jacks. The moment you go and brush your teeth, give me some squats before you start or maybe even while you are brushing your teeth if you feel like really multitasking. Going out to get the morning paper, I want a burpee when you get to that paper. Just add in some simple movements or tasks that are associated with every stop along your morning routine. Evening Routine Same concept of your morning routine except I want you to do more stretching and more of a yoga pose idea with it. When you are going around the house shutting off the lights, take a deep breath and reach up and then down towards your toes. Locking the doors, I want a nice deep lunge stretch to help loosen up those hip flexors. Do simple more relaxing movements. Not only will these little movements help burn those extra calories, they are going to help mentally and physically relax you before you sleep. Your Car Most people are getting in and out of their car at least once a day. Every time you are getting into your car, add some movement. You can do jumping jacks, lunges, squats, some hip hinges, do something. I have known people where they will do as many reps of squats for each minute they expect to be driving. If they were going on a long road trip, they would break up those squats during the rest breaks. This is a very simple way to add in those extra calories burned. Personally I like to try getting into and out of my car without using my hands. Some days I will try to mix up only using one foot or the other with no hands trying to carefully slid out of the car. Ditch the Car: If you do not have a crazy commute to work or when running errands or even going out to eat ditch the car for the evening. Many people forget that they can walk places and it will in fact not take long at all. The walk will make you feel good, burn calories, and will help out our environment. Personally I try to ride my bike to work as often as I can. I know others who go and walk to the grocery store when buying only a handful of items. I know of others who take an uber to work in the morning and walk the distance home. The point is at least once a week ditch the car and ride your bike, walk, skate, or even run somewhere you need to go. Work Do not just sit there. If you have a job where you end up sitting down for an extended period of time you are doing harm to yourself. Luckily you can save yourself. Every 5 minutes you sound get up and stand up and squat down and then sit right back down. Anytime you have a break in your workflow, do a little twist in the chair stretching your back out. If you are stuck there reading your emails, add some arm circles in. You won t even have to get out of your chair for those arm circles. All the little movements add up. So please, do it for yourself and do not just sit there. You & Your Significant Other You don t have to be to have a significant other. Exercising with a bestie, a girlfriend or boyfriend or even a pet is a great way to spend time and feel great. Who does not like a long romantic walk down the beach in the sand? Who would not want to go walk or a hike and enjoy nature? Go and shy your dog on all four and be a dog for fifteen minutes. They will enjoy it and so will you. The point is get moving with the your better half and you will be better for it. It will definitely bring the two of you closer as well. Clean Everything Cleaning is a very efficient way to multitask. You are getting those extra calories burned while cleaning whatever you wanted clean anyways. The fun part is make a game out of the cleaning. When I wash my car I see absolutely how fast I can get my car washed and clean. When I begin to vacuum I try to do everything while balancing on one leg or the other. When I sweep my house, I credit review officer the broomstick like I am trying to break it. The point is make it fun to clean and make it a good challenge. I put my laundry basket away from the washer and take jump shots with all my clothes into the washer. This is my favorite one and I highly recommend it if you have a radioisotope technician. The lehman is that you remember why you are doing every thing. Keep in mind your own goal. I want you to remember on why you are trying to lose weight in the first place. If you focus on that goal and remember to have fun with all these easy steps and tricks to add those extra calories burned, you will get to where you want to be and have fun in the process. Losing weight is not necessarily hard work. It can be fun if you are open to the idea and willing to look a bit goofy at times. I promise you though every one of these 10 ways to increase your daily NEAT will be effective and will all add up in the end. A great book that I would recommend for anyone reading is the Slight Edge. The book s main theme is that it is the little things done daily that lead to the biggest change. http://www.[employer]/10-easy-w zpc-cc-defneqny-your-neat/ documented in this encounter [facility] 03-17-2024 Note [facility] 03-17-2024 History of Present illness Narrative Sherin Sandoval is a 28 year old female who presents for problem visit for f/u AUB. HPI: 28 YOF presents c/o heavy bleeding. The mirena IUD placed in December 2023 and Mirena helped bleeding but had a lot of pain and now not as much pain. Had some cramps and that was tolerable but at least every other day had a spasm that was intense and sometimes had vomiting it was so intense and OTC pain meds didn't help. WOuld last few minutes up to a couple of hours at the longest. Hasn't had any more episodes. Tried multiple controls in the past. Feels like when she was on control in the past cramps got worse. 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 History Comments: Sexual Activity: Not Currently; Male Contraception: No contraception data on record PAST MEDICAL HISTORY Diagnosis Date 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 attack Hypothyroidism Iron deficiency anemia Kidney stones PAST SURGICAL HISTORY Procedure Laterality Date CATH/STENT RENAL DRAINAGE EXTRACTION ERUPTED TOOTH/EXR wisdom teeth HYSTEROSCOPY, DIAGNOSTIC (SEPARATE 12/20/2023 hysteroscopy dilation and curettage, polypectomy, liletta insertion LITHOTRIPSY XTRCORP SHOCK WAVE X 2 REMOVAL OF HEEL SPUR Right TONSILLECTOMY HX FAMILY HISTORY Problem Relation Age of Onset Breast Cancer Mother other (hysterectomy) Mother Cervical Cancer Mother other (throat cancer) Father No Known Problems Sister No Known Problems Sister Diabetes Brother No Known Problems Brother No Known Problems Brother Cervical Cancer Maternal Grandmother Dementia Maternal Grandfather Social History Tobacco Use Smoking status: Never Passive exposure: Never Smokeless tobacco: Never Vaping Use Vaping status: Never Used Substance Use Topics Alcohol use: Not Currently Drug use: Never Current Outpatient Medications Medication Sig cholecalciferol, vitamin D3, (VITAMIN D3 ORAL) Take by mouth. ferrous sulfate (IRON ORAL) Take 2 tablets by mouth every other day. acetaminophen (TYLENOL EXTRA STRENGTH) 500 mg tablet Take 1,000 mg by mouth every 8 hours as needed. FLUoxetine (PROZAC) 20 mg capsule Take 1 capsule by mouth once daily. busPIRone (BUSPAR) 15 mg tablet Take 1 tablet by mouth three times a day. levothyroxine (SYNTHROID) 50 mcg tablet Take 1 tablet by mouth once daily. hydrOXYzine HCl (ATARAX) 10 mg tablet Take 1 tablet by mouth two times a day as needed. tirzepatide (MOUNJARO) 2.5 mg/0.5 mL pen injector Inject 2.5 mg subcutaneously one time a week. (Patient not taking: Reported on 03/17/2024) levonorgestrel (LILETTA) 20.4 mcg/24 hr (8 yrs) 52 mg IUD 1 Each by INTRAUTERINE route as directed. (Patient not taking: Reported on 03/02/2024) No current facility-administered medications for this visit. Allergies As of Date: 03/17/2024 (No Known Allergies) Fully Assessed 03/17/2024 Allergies and current medication updated:Yes SENSITIVE EXAM: Sensitive exam not performed. EXAM: BP 128/90 Wt 289 lb (131.1kg) LMP 03/08/2024 GENERAL: pleasant, female in no apparent distress ASSESSMENT AND PLAN: Assessment & Plan Menorrhagia with irregular cycle Dw her r/b/a to various treatment options. Not a good candidate for ablation due to age. Does not desire future child bearing. D/w her would not recommend hyst due to age and her BMI increases risks of surgery. Is working on wt loss/overall health. D/w her options cyclic provera w/ TXA at time of menses. Option for smaller IUD, she declines this. Annovera and try to extend regimen would be another option. She elects for this and f/u in 3 months, contact office with problems. Jolene Berry MD Medical Decision Making: Problems: Moderate: 1+ chronic illnesses with change Risk: Moderate: Drug management Medical Decision Making Level: 4 - Moderate documented in this encounter [facility] 03-16-2024 Telephone encounter Note I called and spoke to Sherin and she stated she has an appointment tomorrow 03/17/24 with [facility]. I rescheduled her visit with to 05/18/24 with lab work just prior, she confirmed this change Maira Carvajal Pss [facility] 03-16-2024 Miscellaneous Notes I called and spoke to Sherin and she stated she has an appointment tomorrow 03/17/24 with [facility]. I rescheduled her visit with to 05/18/24 with lab work just prior, she confirmed this change Maira Carvajal Pss Thank you. Then I think she should get in touch with gynecology about that. We can continue monitoring her blood counts and iron levels. Please schedule for OV/CBC/iron studies in about 2 to 3 months. Sridevi Ramirez DO Pt returns Deskt message stating her bleeding has increased since the removal of the IUD. Autumn Dupont LPN Call to pt, left VM to check her mychart and reply or call back. Autumn Dupont LPN Can let her know the lab testing showed no evidence of a bleeding disorder. Storage iron a bit higher, but iron saturation was still fairly low. Has the menstrual bleeding slowed at all after IUD? Sridevi Ramirez DO documented in this encounter [facility] 03-16-2024 Telephone encounter Note Thank you. Then I think she should get in touch with gynecology about that. We can continue monitoring her blood counts and iron levels. Please schedule for OV/CBC/iron studies in about 2 to 3 months. Sridevi Ramirez DO [facility] Work Phone: 03-16-2024 Telephone encounter Note Pt returns Mychart message stating her bleeding has increased since the removal of the IUD. Autumn Dupont LPN [facility] 03-16-2024 Telephone encounter Note Call to pt, left VM to check her mychart and reply or call back. Autumn Dupont LPN [facility] 03-15-2024 Telephone encounter Note Can let her know the lab testing showed no evidence of a bleeding disorder. Storage iron a bit higher, but iron saturation was still fairly low. Has the menstrual bleeding slowed at all after IUD? Sridevi Raimrez DO [facility] 03-09-2024 Telephone encounter Note Prescription Refill Information The patient has been identified by name and date of : Yes Caregiver verified no other encounters exist for this prescription request: Yes Caregiver confirmed with patient/requestor that no other refills are due, in the near future, with this provider at this time: Yes The last office visit in the department: 10/22/23 Does the patient have a future office visit with this provider/department: No Requested Prescriptions Pending Prescriptions Disp Refills levothyroxine (SYNTHROID) 50 mcg tablet 90 tablet 1 Sig: Take 1 tablet by mouth once daily. *Last rx written 12/11/24 #90 with 1 refill. Pt not due for refill until May. MC message to pt advising of the same. Trenton Jeffrey LPN March 09, 2024 9:14 AM [facility] 03-09-2024 Miscellaneous Notes Prescription Refill Information The patient has been identified by name and date of : Yes Caregiver verified no other encounters exist for this prescription request: Yes Caregiver confirmed with patient/requestor that no other refills are due, in the near future, with this provider at this time: Yes The last office visit in the department: 10/22/23 Does the patient have a future office visit with this provider/department: No Requested Prescriptions Pending Prescriptions Disp Refills levothyroxine (SYNTHROID) 50 mcg tablet 90 tablet 1 Sig: Take 1 tablet by mouth once daily. *Last rx written 12/11/24 #90 with 1 refill. Pt not due for refill until May. MC message to pt advising of the same. Trenton Jeffrey LPN March 09, 2024 9:14 AM documented in this encounter [facility] 03-02-2024 Note [facility] 03-02-2024 History of Present illness Narrative Images from the original note were not included. Patient Summary: Sherin Sandoval is a 28 year old female with obesity who presents for an initial evaluation of overweight/obesity to treat and prevent co-morbidities and is interested in combination of behavioral and pharmacological. Motivation for seeking treatment for the disease of overweight/obesity : She mainly wants to be healthy. She wants to be able to do the things that she used to do. She really enjoyed hiking but with her anemia she struggles with that. Goal weight: 200 lb Lowest recall weight: 240 lb (2018) Highest non- recall weight: 292 lb Patient identified barriers to weight loss: Anemia Weight History: She reports a family history of obesity and early adulthood weight gain. She states her weight gain is related to the following factors, including reduced physical activity. Difficulty losing weight? Yes History of weight loss with regain? Yes - Last Wt 03/02/24 : 132.5 kg (292 lb 3.2 oz) 5% weight loss = 278 lbs, 10% weight loss = 263 lbs WEIGHT GRAPH: Diet/Nutrition overview: Awake - 7am B - bagel butter or fruit smoothie- frozen berries, kiwi, strawberries, yogurt plain, apple juice S - L - goldfish S - D - 5pm meat and mashed potato and peas, chicken burrito-rice, chicken and cheese, chicken and salad- olive garden dressing and croutons. Hamburger helpers S - ice cream (every other week) Fluids: 4-5 16oz bottles of water and fruit juice snapple (one per day), stopped soda about 1.5 yrs ago Bedtime -8-9 falls asleep an hour later Quality of diet: 24hr recall suggests in between diet. Characterization of diet:Unstructured, unhealthy snacking, excessive cravings, increased consumption of sugar sweetened beverages, and skip meals. 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 Eating Disorder no Cravings: sugar but only has about has about 1 every other week- better since gave up soda Sleep Duration: 8-9 hours. JOSEPH NO ; CPAP NO Stress Stress:yes , Cause:Personal Obesity Related Comorbidities: Prior Weight Loss Surgery:No PAST MEDICAL HISTORY Diagnosis Date 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 attack Hypothyroidism Iron deficiency anemia Kidney stones PAST SURGICAL HISTORY Procedure Laterality Date CATH/STENT RENAL DRAINAGE EXTRACTION ERUPTED TOOTH/EXR wisdom teeth HYSTEROSCOPY, DIAGNOSTIC (SEPARATE 12/20/2023 hysteroscopy dilation and curettage, polypectomy, liletta insertion LITHOTRIPSY XTRCORP SHOCK WAVE X 2 REMOVAL OF HEEL SPUR Right TONSILLECTOMY HX FAMILY HISTORY Problem Relation Age of Onset Breast Cancer Mother other (hysterectomy) Mother Cervical Cancer Mother other (throat cancer) Father No Known Problems Sister No Known Problems Sister Diabetes Brother No Known Problems Brother No Known Problems Brother Cervical Cancer Maternal Grandmother Dementia Maternal Grandfather Social History Tobacco Use Smoking status: Never Passive exposure: Never Smokeless tobacco: Never Vaping Use Vaping status: Never Used Substance Use Topics Alcohol use: Not Currently Drug use: Never AOM Medications: none Weight Promoting Medications: Other prozac, atarax Diet/weight loss History: Past weight loss attempts? self-directed, diet and exercise when she had the energy too. She never saw someone for it. Caloric restriction and Keto, she will try different diets but with her iron deficiency it is hard for her since she has to eat iron enriched foods. Exercise: Regular exercise: Not really regular, but does try and get out and walk depending on how she is feeling. Strength/resistance exercise:no Barriers to regular exercise? Yes, anemia Work-related activity:Sedentary. 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 HTN: no PULM: Asthma:no GI: GERD:no ; Gallstones:no ; Fatty liver disease:no Pancreatitis: no MSK: Joint Pain:no : Nephrolithiasis: yes - 2020 laser therapy Symptoms of PCOS: no NEURO: Migraines/AVALOS: no; H/o seizures: no Glaucoma:no; Cataracts no Symptoms of or History of pseudotumor cerebri: no Family or personal History of MEN2 or Medullary thyroid cancer: no PE BP 122/70 Pulse 82 Wt 132.5 kg (292 lb 3.2 oz) LMP (LMP Unknown) SpO2 99% BMI 49.77 kg/m Waist Circumference: 52 Neck Circumference: 16 GENERAL: Female in NAD. General adiposity. SKIN: acanthosis nigricans no, Skin tags: no Hirsutism: no HEENT: PERRL, No supraclavicular adiposity. No dorsal adiposity. ABDOMEN: Large pannus; EXTREMITIES: peripheral edema: no Results: reviewed with the patient Appointment on 01/27/2024 Component Date Value Ref Range Status PT Sec 01/27/2024 10.4 <13.1 sec Final INR 01/27/2024 1.0 0.9 - 1.3 Final APTT 01/27/2024 29.9 23.0 - 32.4 sec Final Ristocetin Co-Factor 01/27/2024 29 (L) 42 - 146 % Final GPIbM Activity 01/27/2024 46 44 - 156 % Final Collagen Binding (CBA) 01/27/2024 62 41 - 161 % Final Factor VIII:C Assay 01/27/2024 86 50 - 173 % Final Von Willebrand Ag 01/27/2024 47 (L) 50 - 173 % Final Ristocetin/VWF Ratio 01/27/2024 0.6 >=0.5 Final CBA/VWF Ratio 01/27/2024 1.3 >=0.6 Final FVIII/VWF Ratio 01/27/2024 1.8 >=0.5 Final Von Willebrand Mult 01/27/2024 Final Appointment on 01/02/2024 Component Date Value Ref Range Status WBC 01/02/2024 9.28 3.70 - 11.00 k/uL Final RBC 01/02/2024 5.02 3.90 - 5.20 m/uL Final Hemoglobin 01/02/2024 12.0 11.5 - 15.5 g/dL Final Hematocrit 01/02/2024 37.5 36.0 - 46.0 % Final MCV 01/02/2024 74.7 (L) 80.0 - 100.0 fL Final MCH 01/02/2024 23.9 (L) 26.0 - 34.0 pg Final MCHC 01/02/2024 32.0 30.5 - 36.0 g/dL Final RDW-CV 01/02/2024 14.2 11.5 - 15.0 % Final Platelet Count 01/02/2024 450 (H) 150 - 400 k/uL Final MPV 01/02/2024 9.9 9.0 - 12.7 fL Final Absolute nRBC 01/02/2024 <0.01 <0.01 k/uL Final Iron 01/02/2024 28 (L) 41 - 186 ug/dL Final TIBC 01/02/2024 363 232 - 386 ug/dL Final Transferrin Saturation 01/02/2024 7.7 (L) 15.0 - 57.0 % Final Impression: Sherin Sandoval is a 28 year old Female with Class III obesity (Body mass index is 49.77 kg/m .) who has early adulthood obesity with gradual weight gain despite several weight loss attempts. The causes of her obesity are multifactorial, biological, psychological and social and environmental. Specific factors include increased consumption of high calorie/process foods, irregular eating patterns , and suboptimal physical activity. She has few weight-related medical comorbidities which increase her cardiovascular mortality risk. There are additional metabolic obesity complications including - HYPERTRIGLYCERIDEMIA AND OTHER LABS PENDING TODAY. Other medical conditions as above. Regarding her lifestyle, as above, she has several behavioral contributors; her physical activity is non-existent. Overall, it is clear that her quality of life is moderately compromised by her weight. It is likely a combination of weight loss therapies will be needed. She appears motivated today. Plan: -- Based on the severity and resistance of the obesity/overweight with co-morbidities, I believe a open to all options intervention is the best and most appropriate intermediate project manager therapeutic option. -- We discussed several strategies to track food intake and increase mindfulness around eating while will decrease calorie intake. She was counseled on the following: Eating primarily whole foods. Limit carbs, especially processed carbs. Do not drink your calories 30 grams of protein for breakfast decreases your hunger during the day by up to 40 % Premier Protein or generic 30 gm protein 1 gm sugar Walk for 15 minutes immediately a meal. -- Encouraged the patient to improve her physical activity. Although cardiovascular exercise is most beneficial for weight loss initially, we discussed healthy muscle from a combination of resistance training and cardiovascular exercise is the best intermediate project manager plan. An overall goal of 150-200 minutes per week of exercise has been effective in weight loss and maintenance. -- Reviewed that monitoring weight daily and food intake can have a positive impact on overall weight loss and maintenance of weight loss. Activity tracking can be used to stay on target for exercise however should not be used to reward oneself She understands that there can be limitations of pharmacotherapy due to contraindications, side effects and cost. Patient was told to contact her insurance company to see what AOMs and supervised behavioral medical appointments are currently covered. Patient understands she will have more success when following a healthy lifestyle. We reviewed continued use of online tracking of daily weights, food journal and if desired physical activity. We reviewed that during management she is to report any concerning side effects of any pharmacotherapy she is placed on. She understands that she will need routine follow up in the office. Prior to any virtual visits in the future she will need to check her Blood pressure, weight, and pulse. NOT CANDIDATE FOR PHENTERMINE OR TOPIRAMATE (ANXIETY AND STONES) -CONSIDER WELLBUTRIN/NALTREXONE IF GLP-1 NOT COVERED -LABS ORDERED WILL WAIT TO ORDER MEDICATION AFTER -NUTRITION REVIEWED - ONLY BASIC GOALS GIVEN- INITIAL VISIT GOALS WE DID DISCUSS HOW MUCH PROTEIN (90-200G AIM FOR 150G IF POSSIBLE) (R53.81, R53.83) Malaise and fatigue (primary encounter diagnosis) (E78.1) Hypertriglyceridemia (E03.9) Hypothyroidism, unspecified type (Z13.220) Screening cholesterol level (Z13.0) Screening for deficiency anemia (Z13.1) Screening for diabetes mellitus (Z13.228) Screening for metabolic disorder (Z13.29) Screening for thyroid disorder (Z13.21) Encounter for vitamin deficiency screening (E66.813, E66.01, Z68.42) Class 3 severe obesity with body mass index (BMI) of 45.0 to 49.9 in adult, unspecified obesity type, unspecified whether serious comorbidity present (HCC) (E66.813, E66.01, Z68.43) Class 3 severe obesity with body mass index (BMI) of 50.0 to 59.9 in adult, unspecified obesity type, unspecified whether serious comorbidity present (HCC) Prescription instructions reviewed with patient as applicable. Potential red flag symptoms discussed with the patient. Reviewed appropriate action plan to take if red flag symptoms occur. Patient agreeable to treatment plan. -- follow-up visit in 4 weeks for management of above interventions NEXT 3 APPTS ARE SCHEDULED- THRU JUNE I spent a total of 70 minutes on the date of the service which included preparing to see the patient, [id number] patient care, completing clinical documentation, obtaining and/or reviewing separately obtained history, performing a medically appropriate examination, counseling and educating the patient/family/caregiver, and ordering medications, tests, or procedures. Vikki Bell MD documented in this encounter [facility] 03-02-2024 Instructions Vikki Epstein MD - 03/02/2024 10:07 AM EDT Weight Management: You have taken the initiative to become a healthier version of yourself and to decrease the risks that come with the diagnosis of obesity or being overweight. We are happy to help you along this journey but know this is a lifetime commitment to yourself. Losing just 3-10 % of your body weight can decrease your risks of many other serious diseases like diabetes, heart disease, osteoarthritis, hypertension, cancer and so many others. During this time you will have triumphs, setbacks and plateaus- your body will fight against you but we are here to give you the tools and the resources to continue to reach your goals. We recommend during this time that you track your weight daily or at least five times per week as well as tracking your nutrition. You may track your activity but do not use hitting your fitness goals as a reward system as this can derail your success. We recommend weekly physical activity of 150-200 min/week-although physical exercise, this will be especially important for weight maintenance. Exercise can have many other benefits including improving insulin resistance, improving balance, bone health, improving mental health and cardiovascular health. Do not feel overwhelmed - we will discuss this more at your visits. Our time will be limited with each visit but we will try to touch on factors that are important to you and to your overall goals. We will try to set a goal at the end of each visit and then decide on what we want to accomplish with your upcoming visits. On your After Visit Summary (AVS), we will provide you with information that may be useful during this journey so please remember to read the information given. Check your AVS a few days after your appointment because we may have added more information specifically for you. Remember that if you are placed on medications, they are tools that can help you succeed but you must put in the work. Your nutrition will be the main factor. There are medications that work well for some and not for others- so it may take time to find the right combination for your body's needs. Please remember that factors such as other health co-morbidities one might have, as well as insurance coverage, will play a factor in determining which medications you can take. Most of the newer medications that are all the craze ,injectables, may not be covered or will only be covered if you fail months of oral medications or have Type 2 diabetes so please be patient with the process. It would be beneficial for you to determine what your insurance covers as far as Anti-Obesity Medications (AOMs), Nutritional Counseling, behavioral intervention and weight loss surgery. Please call your health insurance prior to your first appointment and write down coverage for each of those therapies. Most importantly, remember that ultimately our goal is to help you get to a healthier weight which will decrease your overall health risks. We will work together as a team and try to reach your personalized goals as well. Follow-up appointments Please arrive to follow-up visits a minimum of 15 minutes prior to your appointment. Follow-up weight management visits can be virtual. You will need to report a current blood pressure, heart rate (pulse) and weight at the beginning of each virtual appointment so you will need to have a reliable BP cuff, either wrist or upper arm. If you need to reschedule your appointment time or switch from an in-office visit to a virtual visit or vice versa, you need to call our office as we have designated appointment slots. [facility] not be [facility] as you will not be scheduled appropriately and will need to be rescheduled. We appreciate that you have entrusted us with your health and know that we are committed to this process with you. Sincerely, Vikki Sandoval MD, MOISES SIDDIQI & Vi Ch CNP Advanced Education from the Obesity [employer] Association Obesity Obesity is a disease that affects nearly one-third of the adult [place] population (approximately 60 million). The number of overweight and obese Americans has continued to increase since 1960, a trend that is not slowing down. Today, 64.5 percent of adult Americans (about 127 million) are categorized as being overweight or obese. Each year, obesity causes at least 300,000 excess deaths in the [place] and healthcare costs of [place] adults with obesity amount to approximately $100 billion. (AOA) Obesity is a complex, multi-factorial chronic disease involving: Environmental (social and cultural) The tendency toward obesity is a result of our environment: lack of physical activity along with high-calorie, low-cost foods. Home, work, school, and even the community can inhibit a healthy lifestyle. Genetic (Hereditary plays a large role in determining how susceptible people are to overweight and obesity). Genes also influence how the body roberts calories for energy and stores fat. Physiologic, metabolic, behavioral (eating too many calories while not getting enough exercise) and psychological components. It is the second leading cause of preventable in the [place] Behavioral changes brought on by economic development, modernization and urbanization have been linked to the rise in global obesity. Calculating BMI Body Mass Index (BMI) is a measurement tool used to determine excess body weight. Overweight is defined as a BMI of 25 or more, obesity is 30 or more, and severe obesity is 40 or more. You can visit www.nhlbi.nih.gov to estimate your BMI. Obesity Related Health Conditions The morbidity and mortality risk from being overweight is proportional to its degree. Individuals with morbid obesity, therefore, have the highest risk for developing numerous illnesses that often reduce mobility and quality of life due to their excess weight. In particular, type 2 diabetes, gallbladder disease and osteoarthritis have been found to increase concurrently with higher BMI. Premature , a 20-year shorter life span, has also been found in individuals with morbid obesity. All of the systems that make the body function are affected by morbid obesity. Type 2 diabetes Gallbladder disease and gallstones Liver disease Osteoarthritis, a disease in which the joints deteriorate. This is possibly the result of excess weight on the joints. Gout, another disease affecting the joints Pulmonary (breathing) problems, including sleep apnea in which a person can stop breathing for a short time during sleep Reproductive problems in women, including menstrual irregularities and infertility Gastroesophageal reflux/heartburn Hypertension Heart Disease Depression Psychological disorders/social impairments Urinary Stress Incontinence Obesity is also linked to higher rates of certain types of cancer. Obese men are more likely than non-obese men to from cancer of the colon, rectum, or prostate. Obese women are more likely than non-obese women to from cancer of the gallbladder, breast, uterus, cervix, or ovaries [email or web address]-[email or web address] - Eat primarily whole foods. Limit carbs, especially processed carbs. Eat - Meat, vegetables and fruits with skin on if possible, eggs, cheese. - Do not drink your calories - 30 grams of protein for your first meal of the day decreases your hunger during the day by up to 40 %. Options include: Premier Protein or generic 30 gm protein 1 gm sugar or 5 eggs or 2-3 eggs and some unbreaded meat and/or cheese. No fruit, vegetables, bread, grain, yogurt, Smoothies, etc. - Walk for 15 minutes immediately after meal. documented in this encounter [facility] 02-26-2024 History of Present illness Narrative Sherin presents for removal of IUD due to persistent and progressive cramping and bleeding. An emperic course of premarin did nothing to improve matters and seems to have worsened things. Patient wants Mirena removed todayand will consider alternatives as needed.. UNIVERSAL PROTOCOL / SAFETY CHECKLIST Procedure to be Performed: Mirena removal Sign In: A Moment of CARE was completed. Personnel directly involved with the procedure wore the appropriate PPE (Personal Protective Equipment). Patient/Surrogate Stated/Verified: PATIENT VERIFIED(optional for EMERGENT procedures): Patient name, Date of , Relevant allergies, and The intended procedure Time Out Communication: Intended patient and procedure match the source documents. Consent documented and matches the intended procedure. No correct side/site applicable for marking and visibility. No medications required for procedure. No fire risk assessment and interventions applicable. No implant(s) inserted. Sign Out: SIGN OUT (optional for EMERGENT procedures): No specimen collected. IUD removed Itz Burris MD PROCEDURE: Speculum placed in vagina, IUD string visualized and grasped with ring forceps. ASSESSMENT/PLAN: IUD removed without difficulty, intact, and patient tolerated procedure well. Contraception plans: none Not sexually active Itz Burris MD documented in this encounter [facility] 02-25-2024 History of Present illness Narrative Referred by Dr. Berry for potential bleeding disorder.. HPI: The patient is a 28-year-old female with a past medical history as outlined below. History HMB: Menarche ~[age]. Recalls menses have always been irregular and heavy. Passed clots. Often could use more than one pad/tampon per hour. Previous 1 unit RBC transfusion. [facility] received parenteral iron at [facility] First iron carboxymaltose. Second iron sucrose. Has been on oral iron for a long time. Tolerates well. Takes with OJ. Tries to eat iron rich foods. Recently underwent hysteroscopic uterine polypectomy and placement of progestin IUD for HMB. Getting bad cramping. Still having bleeding, but slowed down. Taking IBU and Tylenol. Feels fatigued all the time. I'm exhausted. History of epistaxis: No h/o nosebleeds. History of gingival bleeding: Occasional gum bleeding if brushing or flossing. History of dental extraction: Both bottom wisdom teeth and two molars on left upper extracted. No excessive bleeding. Previous postoperative bleeding: Tonsillectomy about age 23. No post operative bleeding. Renal stone Previous excessive postdelivery bleeding: No. Tubal age 2017; MTX. Unexplained bruising: All the time. Family history of bleeding disorder: None known. PAST MEDICAL HISTORY Diagnosis Date 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 attack Hypothyroidism Iron deficiency anemia Kidney stones PAST SURGICAL HISTORY Procedure Laterality Date CATH/STENT RENAL DRAINAGE EXTRACTION ERUPTED TOOTH/EXR wisdom teeth HYSTEROSCOPY, DIAGNOSTIC (SEPARATE 12/20/2023 hysteroscopy dilation and curettage, polypectomy, liletta insertion LITHOTRIPSY XTRCORP SHOCK WAVE X 2 REMOVAL OF HEEL SPUR Right FLUoxetine (PROZAC) 20 mg capsule Take 1 capsule by mouth once daily. estradiol (ESTRACE) 1 mg tablet Take 1 tablet by mouth once daily. busPIRone (BUSPAR) 15 mg tablet Take 1 tablet by mouth three times a day. levonorgestrel (LILETTA) 20.4 mcg/24 hr (8 yrs) 52 mg IUD 1 Each by INTRAUTERINE route as directed. levothyroxine (SYNTHROID) 50 mcg tablet Take 1 tablet by mouth once daily. hydrOXYzine HCl (ATARAX) 10 mg tablet Take 1 tablet by mouth two times a day as needed. ALLERGIES No Known Allergies Social History Tobacco Use Smoking status: Never Passive exposure: Never Smokeless tobacco: Never Vaping Use Vaping status: Never Used Substance Use Topics Alcohol use: Not Currently Drug use: Never FAMILY HISTORY Problem Relation Age of Onset Breast Cancer Mother other (hysterectomy) Mother Cervical Cancer Mother other (throat cancer) Father No Known Problems Sister No Known Problems Sister Diabetes Brother No Known Problems Brother No Known Problems Brother Cervical Cancer Maternal Grandmother Dementia Maternal Grandfather REVIEW OF SYSTEMS: Constitutional: No episodes of fever and night sweats. Not significantly fatigued. Normal appetite. Neuro: No AVALOS, vertigo, dizziness and imbalance. No symptoms of neuropathy. HEENT: No recent change in voice, vision or hearing. Resp: No cough, wheeze and hemoptysis. No shortness of breath at rest. No QUIROZ. CVS: No exertional chest pain, PND, orthopnea and LE edema. GI: No altered taste or symptoms of stomatitis. No dysphagia and odynophagia. No reflux, n/v, change in bowel habits or abdominal pain. : No dysuria or gross hematuria. No symptoms of bladder outlet obstruction. Endo: No hot flashes. No polyuria and polydipsia. No heat and cold intolerance. Musculoskeletal: No bone, back, joint and muscular pain. Derm: No current rash. No history of jaundice or diffuse pruritis. Heme: No unusual bleeding and unexplained bruising. Psych: Normal mood. PHYSICAL EXAM: Vitals: Blood pressure 141/95, pulse 95, temperature 36.8 C (98.2 F), temperature source Temporal, height 163.2 cm (5' 4.25), weight 133.4 kg (294 lb), SpO2 99%. Well-appearing and in no acute distress. EYES: Sclerae are anicteric bilaterally. ENT: Oral mucosa is unremarkable. There is no sign of mucosal or gingival bleeding. CARDIOVASCULAR: Rhythm is regular. ABDOMEN: The abdomen is nondistended. No splenomegaly or hepatomegaly. No tenderness. Extremities: No swelling or edema. SKIN: No jaundice or rash. No petechiae. LABS: Latest Ref Rng 12/05/2023 01/27/2024 Ristocetin Co-Factor 42 - 146 % 23 (L) 29 (L) GPIbM Activity 44 - 156 % 41 (L) 46 Collagen Binding (CBA) 41 - 161 % 51 62 Factor VIII:C Assay 50 - 173 % 96 86 Von Willebrand Ag 50 - 173 % 57 47 (L) Ristocetin/VWF Ratio >=0.5 0.4 (L) 0.6 CBA/VWF Ratio >=0.6 0.9 1.3 FVIII/VWF Ratio >=0.5 1.7 1.8 Von Willebrand Mult Assay of von Willebrand multimers was performed by an agarose gel electrophoresis followed by immunofixation with anti-von Willebrand factor antiserum. There is a normal multimer intensity with a normal distribution of multimer sizes. Reviewed by Elena Roman M.D., Ph.D. Assay of von Willebrand multimers was performed by an agarose gel electrophoresis followed by immunofixation with anti-von Willebrand factor antiserum. PT Sec <13.1 sec 10.2 10.4 PT INR 0.9 - 1.3 1.0 1.0 APTT 23.0 - 32.4 sec 24.1 29.9 Latest Ref Rng 12/11/2023 01/02/2024 WBC 3.70 - 11.00 k/uL 9.49 9.28 RBC 3.90 - 5.20 m/uL 4.79 5.02 Hemoglobin 11.5 - 15.5 g/dL 11.9 12.0 Hematocrit 36.0 - 46.0 % 36.4 37.5 MCV 80.0 - 100.0 fL 76.0 (L) 74.7 (L) MCH 26.0 - 34.0 pg 24.8 (L) 23.9 (L) MCHC 30.5 - 36.0 g/dL 32.7 32.0 RDW-CV 11.5 - 15.0 % 14.1 14.2 Platelet Count 150 - 400 k/uL 430 (H) 450 (H) MPV 9.0 - 12.7 fL 9.9 9.9 Absolute nRBC <0.01 k/uL <0.01 <0.01 Iron 41 - 186 ug/dL 18 (L) 28 (L) TIBC 232 - 386 ug/dL 402 (H) 363 Transferrin Saturation 15.0 - 57.0 % 4.5 (L) 7.7 (L) Ferritin 14.7 - 205.1 ng/mL 13.8 (L) ASSESSMENT/PLAN: (N92.1) Menorrhagia with irregular cycle (primary encounter diagnosis) (D50.0) Iron deficiency anemia due to chronic blood loss (D51.8) Other vitamin B12 deficiency anemia Assessment: -The patient is a 28-year-old female with a history of heavy, irregular menstrual bleeding. She also has history of iron deficiency and B12 deficiency. -Possible mild type I VWD. -Tolerates oral iron well, but may not be able to keep up with iron loss. Plan: -Hold NSAIDs. -Recheck full von Willebrand panel to assess platelet function in about 2 weeks. -At that time recheck CBC, iron studies and B12. -Potential iron sucrose if her iron saturation does not suggest she absorbs iron well. I asked her to have the lab work done on a day about an hour or so after taking her iron supplement. -Potential EGD if B12 deficient and not absorbing iron well. -Office visit following above. I spent a total of 60 minutes on the date of the service which included preparing to see the patient, [id number] patient care, completing clinical documentation, obtaining and/or reviewing separately obtained history, performing a medically appropriate examination, counseling and educating the patient/family/caregiver, ordering medications, tests, or procedures, communicating with other HCPs (not separately reported), and communicating results to the patient/family/caregiver. Sridevi Ramierz DO documented in this encounter [facility] 02-20-2024 Telephone encounter Note Prescription Refill Information The patient has been identified by name and date of : Yes Caregiver verified no other encounters exist for this prescription request: Yes Caregiver confirmed with patient/requestor that no other refills are due, in the near future, with this provider at this time: Yes The last office visit in the department: 10/22/2023 Does the patient have a future office visit with this provider/department: Yes Requested Prescriptions Pending Prescriptions Disp Refills FLUoxetine (PROZAC) 20 mg capsule 90 capsule 1 Sig: Take 1 capsule by mouth once daily. Itzel Tobar MA February 20, 2024 12:00 PM [facility] 02-20-2024 Miscellaneous Notes Prescription Refill Information The patient has been identified by name and date of : Yes Caregiver verified no other encounters exist for this prescription request: Yes Caregiver confirmed with patient/requestor that no other refills are due, in the near future, with this provider at this time: Yes The last office visit in the department: 10/22/2023 Does the patient have a future office visit with this provider/department: Yes Requested Prescriptions Pending Prescriptions Disp Refills FLUoxetine (PROZAC) 20 mg capsule 90 capsule 1 Sig: Take 1 capsule by mouth once daily. Itzel Tobar MA February 20, 2024 12:00 PM documented in this encounter [facility] 02-19-2024 History of Present illness Narrative Sherin Sandoval is a 28 year old female who presents for problem visit persistent but improved bleeding six weeks post hysteroscopic uterine polypectomy and place progestin IUD. Pelvic pain is problematic despite confirmation of appropriate placement and NSAIDS. Note similar experience with IUD in the past;. 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 PAST MEDICAL HISTORY Diagnosis Date 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 attack Hypothyroidism Iron deficiency anemia Kidney stones PAST SURGICAL HISTORY Procedure Laterality Date CATH/STENT RENAL DRAINAGE EXTRACTION ERUPTED TOOTH/EXR wisdom teeth HYSTEROSCOPY, DIAGNOSTIC (SEPARATE 12/20/2023 hysteroscopy dilation and curettage, polypectomy, liletta insertion LITHOTRIPSY XTRCORP SHOCK WAVE X 2 REMOVAL OF HEEL SPUR Right FAMILY HISTORY Problem Relation Age of Onset Breast Cancer Mother other (hysterectomy) Mother Cervical Cancer Mother other (throat cancer) Father No Known Problems Sister No Known Problems Sister Diabetes Brother No Known Problems Brother No Known Problems Brother Cervical Cancer Maternal Grandmother Dementia Maternal Grandfather Social History Tobacco Use Smoking status: Never Passive exposure: Never Smokeless tobacco: Never Vaping Use Vaping status: Never Used Substance Use Topics Alcohol use: Not Currently Drug use: Never Current Outpatient Medications Medication Sig busPIRone (BUSPAR) 15 mg tablet Take 1 tablet by mouth three times a day. levonorgestrel (LILETTA) 20.4 mcg/24 hr (8 yrs) 52 mg IUD 1 Each by INTRAUTERINE route as directed. levothyroxine (SYNTHROID) 50 mcg tablet Take 1 tablet by mouth once daily. FLUoxetine (PROZAC) 20 mg capsule Take 1 capsule by mouth once daily. hydrOXYzine HCl (ATARAX) 10 mg tablet Take 1 tablet by mouth two times a day as needed. No current facility-administered medications for this visit. Allergies As of Date: 02/19/2024 (No Known Allergies) Fully Assessed 02/19/2024 REVIEW OF SYSTEMS Abdomen: No bloating, early satiety, indigestion, or increased flatulence. No abdominal pain, nausea, vomiting, diarrhea, or constipation. Bladder: No dysuria, gross hematuria, urinary frequency, urinary urgency, or incontinence. Breast: No breast lumps, nipple d/c, overlying skin changes, redness or skin retraction. Expanded ROS: N/A Allergies and current medication updated:Yes SENSITIVE EXAM: The sensitive examination was discussed with the Patient or Patient's Authorized Materials Tech. As applicable, any other physician, advance practice provider, medical student, or other health professional student that will be observing or involved in the sensitive examination for educational or training purposes was discussed with the Patient or Authorized Materials Tech. The Patient or Authorized Materials Tech has agreed to proceed with the sensitive examination. (Sensitive examination includes inspection and/or palpation of the breasts, pelvis, prostate and anorectal regions). EXAM: There were no vitals taken for this visit. GENERAL: pleasant, female in no apparent distress ABDOMEN: soft, non-tender, and no masses PELVIC: external genitalia normal, normal Bartholin's glands, urethra, [place]'s glands, no vulvar lesions, no cervical lesions, good vaginal support, physiologic discharge present, normal appearing perineal body and perianal region BIMANUAL: uterus normal size, shape and consistency, no adnexal masses, and non-tender ASSESSMENT AND PLAN: HMB improved but irregular and persistent. Pain since the IUD is the bigger issue.Empiric 10 day course of premarin to see if blleding/pain abates. Otherwise may need to remove IUD and consider alternatives Itz Burris MD ftft > 30 m documented in this encounter [facility] 02-18-2024 Telephone encounter Note Pt states does not have a ride and cannot be here any sooner than 4pm today. States tomorrow works better. Scheduled appt with AT at 0850 tomorrow morning. Tammy Flores RN [facility] 02-18-2024 Miscellaneous Notes Pt states does not have a ride and cannot be here any sooner than 4pm today. States tomorrow works better. Scheduled appt with AT at 0850 tomorrow morning. Tammy Flores RN I can see her today, add on to 4 pm but have her come in as soon as she can or AT tomorrow. Jolene Berry MD Called Pt re: mychart message. Pt states pain is in lower abdominal region/cramping/sharp-stabbing pain. States it feels like kidney stone pain, but in my uterus. Pt took ibuprofen and Tylenol. Overall cramping improved, but the sharp/stabbing pain comes in waves. Pt states the pain woke her up at 3am and was so intense she vomited. Sharp/stabbing pain let up around 5am. When pain is at the worst 10/10. Right now pain 4/10 explaining it as a dull ache now. As far as bleeding-has been wearing light pad, but starting on Saturday put on a period pad. Changing every 3 hours. Denies light headlessness/dizziness/shortness of breath/chest pain. Pt voices a lot of fatigue. Bleeding precautions reviewed and advised if develops light headlessness/dizziness/shortness of breath/chest pain to go to ER and message would be sent to RR and we would call her if RR has additional recommendations. Has Appt 02/21/24 with RR Has Appt 02/25/[address] Ramirez Please advise. Tammy Flores RN documented in this encounter [facility] 02-18-2024 Telephone encounter Note I can see her today, add on to 4 pm but have her come in as soon as she can or AT tomorrow. Jolene Berry MD [facility] 02-18-2024 Telephone encounter Note Called Pt re: mychart message. Pt states pain is in lower abdominal region/cramping/sharp-stabbing pain. States it feels like kidney stone pain, but in my uterus. Pt took ibuprofen and Tylenol. Overall cramping improved, but the sharp/stabbing pain comes in waves. Pt states the pain woke her up at 3am and was so intense she vomited. Sharp/stabbing pain let up around 5am. When pain is at the worst 10/10. Right now pain 4/10 explaining it as a dull ache now. As far as bleeding-has been wearing light pad, but starting on Saturday put on a period pad. Changing every 3 hours. Denies light headlessness/dizziness/shortness of breath/chest pain. Pt voices a lot of fatigue. Bleeding precautions reviewed and advised if develops light headlessness/dizziness/shortness of breath/chest pain to go to ER and message would be sent to RR and we would call her if RR has additional recommendations. Has Appt 02/21/24 with RR Has Appt 02/25/[address] Ramirez Please advise. Tammy Flores RN [facility] 02-05-2024 Telephone encounter Note Scheduled with patient [facility] Work Phone: 02-05-2024 Miscellaneous Notes Scheduled with patient 1st attempt Lvm for patient to return the call. 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 Elana Perez LPN Please advise re: scheduling. Yolanda Frederick Please contact patient to schedule consult with hematology. Riana Curiel, MIHIR ----- Message from Jolene Berry MD sent at 02/04/2024 3:44 PM EDT ----- Needs scheduled w/ hematology for abnormal labs/ heavy bleeding. Jolene Berry MD documented in this encounter [facility] 02-05-2024 Telephone encounter Note 1st attempt Lvm for patient to return the call. 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 Elana Perez LPN [facility] 02-04-2024 Telephone encounter Note Please advise re: scheduling. Yolanda Frederick [facility] 02-04-2024 Telephone encounter Note Please contact patient to schedule consult with hematology. Riana Curiel RN [facility] 02-04-2024 Telephone encounter Note ----- Message from Jolene Berry MD sent at 02/04/2024 3:44 PM EDT ----- Needs scheduled w/ hematology for abnormal labs/ heavy bleeding. Jolene Berry MD [facility] 02-04-2024 Telephone encounter Note Prescription Refill Information The patient has been identified by name and date of : Yes Caregiver verified no other encounters exist for this prescription request: Yes Caregiver confirmed with patient/requestor that no other refills are due, in the near future, with this provider at this time: Yes The last office visit in the department: 10/22/23 Does the patient have a future office visit with this provider/department: No Requested Prescriptions Pending Prescriptions Disp Refills busPIRone (BUSPAR) 15 mg tablet 270 tablet 0 Sig: Take 1 tablet by mouth three times a day. Trentno Jeffrey LPN February 04, 2024 8:53 AM [facility] 02-04-2024 Miscellaneous Notes Prescription Refill Information The patient has been identified by name and date of : Yes Caregiver verified no other encounters exist for this prescription request: Yes Caregiver confirmed with patient/requestor that no other refills are due, in the near future, with this provider at this time: Yes The last office visit in the department: 10/22/23 Does the patient have a future office visit with this provider/department: No Requested Prescriptions Pending Prescriptions Disp Refills busPIRone (BUSPAR) 15 mg tablet 270 tablet 0 Sig: Take 1 tablet by mouth three times a day. Trenton Jeffrey LPN February 04, 2024 8:53 AM documented in this encounter [facility] 01-06-2024 Telephone encounter Note Ultrasound report reviewed by Dr. Berry. Per Dr. Berry, start Doxycyline 100 mg BID for 10 days for possible endometritis. Called patient to review ultrasound and recommended Doxycyline. Pain is still about the same. Bleeding WNL. No fever or chills. Precautions reviewed. To notify if pain is not improving within 5-7 days. Sherin verbalizes understanding. John Luque APRN.SOLUTIONS EXECUTIVE SECURITY [facility] 01-06-2024 Miscellaneous Notes Ultrasound report reviewed by Dr. Berry. Per Dr. Berry, start Doxycyline 100 mg BID for 10 days for possible endometritis. Called patient to review ultrasound and recommended Doxycyline. Pain is still about the same. Bleeding WNL. No fever or chills. Precautions reviewed. To notify if pain is not improving within 5-7 days. Sherin verbalizes understanding. 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 Encounter Diagnosis ICD-10-CM 1. Pelvic pain in female R10.2 Please see report under imaging tab. Kristi Lassiter MD January 06, 2024 7:56 AM documented in this encounter [facility] 01-02-2024 History of Present illness Narrative Control Area Operator offered: Patient declines. Sherin Sandoval is a 28 year old female who presents for post op pain. HPI: Sherin had a hysteroscopy D+C with polyp resection at [facility] on 12/20/23 for endometrial polyp, menorrhagia, and iron deficiency. A Mirena IUD was placed. The surgery was done by Dr. Jolene Berry. She has been having pain since surgery. Describes the pain as a spiking, ripping, tearing pain that occurs in waves. It has woken her up from sleep. Compares the pain to kidney stones - occurring 4-5 times per day. Typically occurs later in the afternoon. It usually goes away after a few hours. Tylenol and Ibuprofen helps her dull pain, but nothing stops the severe pain. Having bowel movements and passing gas. Denies fever or chills. Bleeding comes and goes. When the severe pain occurs, she notes increased blood flow. 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 PAST MEDICAL HISTORY No date: 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 attack No date: Hypothyroidism No date: Iron deficiency anemia No date: Kidney stones PAST SURGICAL HISTORY No date: CATH/STENT RENAL DRAINAGE 12/20/2023: D&C, DIAG AND/OR THERAPEUTIC Comment: hysteroscopy, polypectomy No date: EXTRACTION ERUPTED TOOTH/EXR Comment: wisdom teeth 12/20/2023: HYSTEROSCOPY, DIAGNOSTIC (SEPARATE Comment: hysteroscopy dilation and curettage No date: LITHOTRIPSY XTRCORP SHOCK WAVE Comment: X 2 No date: REMOVAL OF HEEL SPUR; Right FAMILY HISTORY Problem Relation Age of Onset Breast Cancer Mother other (hysterectomy) Mother Cervical Cancer Mother other (throat cancer) Father No Known Problems Sister No Known Problems Sister Diabetes Brother No Known Problems Brother No Known Problems Brother Cervical Cancer Maternal Grandmother Dementia Maternal Grandfather Social History Tobacco Use Smoking status: Never Passive exposure: Never Smokeless tobacco: Never Vaping Use Vaping status: Never Used Substance Use Topics Alcohol use: Not Currently Drug use: Never Current Outpatient Medications Medication Sig levonorgestrel (LILETTA) 20.4 mcg/24 hr (8 yrs) 52 mg IUD 1 Each by INTRAUTERINE route as directed. levothyroxine (SYNTHROID) 50 mcg tablet Take 1 tablet by mouth once daily. busPIRone (BUSPAR) 15 mg tablet Take 1 tablet by mouth three times a day. FLUoxetine (PROZAC) 20 mg capsule Take 1 capsule by mouth once daily. hydrOXYzine HCl (ATARAX) 10 mg tablet Take 1 tablet by mouth two times a day as needed. No current facility-administered medications for this visit. 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 Allergies and current medication updated:Yes EXAM: BP 124/84 Wt 292 lb (132.5kg) GENERAL: pleasant, female in no apparent distress HEENT: Normocephalic, atraumatic, mucus membranes moist, and no lesions CHEST: Normal inspiratory effort ABDOMEN: soft, non-tender, and no masses PELVIC: external genitalia normal, normal Bartholin's glands, urethra, [place]'s glands, no vulvar lesions, no cervical lesions, good vaginal support, + light menses, normal appearing perineal body and perianal region, + IUD strings visible BIMANUAL: uterus normal size, shape and consistency, no adnexal masses, mild tenderness, limited exam NEURO: alert and oriented x3,exam grossly non-focal EXTREMITIES: normal ASSESSMENT AND PLAN: 1. Pelvic pain in female - ICD9: 625.9, ICD10: R10.2 - IUD strings visible - BV/yeast testing - Pelvic ultrasound ordered - Urine culture ordered - CBC and iron studies ordered - Continue Tylenol and Ibuprofen - Discussed cramping as a common side effect after IUD placement. May resolve, but to notify with worsening or more frequent pain RTO for post op with Dr. Berry. John Luque APRN.JIM Medical Decision Making: Problems: Low: Acute, uncomplicated illness or injury Data: Unique test(s) ordered: 3+ Risk: Low: Low risk from testing/treatment Moderate: Drug management Medical Decision Making Level: 4 - Moderate documented in this encounter [facility] 12-25-2023 Telephone encounter Note Pt viewed mychart response by RR. Appt scheduled with on 01/01. Tammy Flores RN [facility] 12-25-2023 Miscellaneous Notes Pt viewed mychart response by RR. Appt scheduled with on 01/01. Tammy Flores RN schedule f/u in 1-2 weeks w/ anyone. .Jolene Berry MD Patient had hysteroscopy D&C with polyp resection at [facility] on 12/20/23. Allie Luna RN documented in this encounter [facility] 12-25-2023 Telephone encounter Note schedule f/u in 1-2 weeks w/ anyone. .Jolene Berry MD [facility] 12-25-2023 Telephone encounter Note Patient had hysteroscopy D&C with polyp resection at [facility] on 12/20/23. Allie Luna RN [facility] 12-23-2023 History of Present illness Narrative Patient underwent hysteroiscopy D&C with polyp resection at [facility] on 12/20/23 for endometrial polyp, menorrhagia and iron deficiency. Pathology pending. IUD inserted. Jolene Berry MD documented in this encounter [facility] 12-12-2023 Telephone encounter Note Patient sent [employer] message requesting the following refill. Requested Prescriptions Pending Prescriptions Disp Refills levothyroxine (SYNTHROID) 50 mcg tablet 90 tablet 1 Sig: Take 1 tablet by mouth once daily. Patient last appointment: 10/22/2023 Patient Phone numbers: [phone] (home) Request is for script(s) to be escript to pharmacy. Allie Arceo MA [facility] 12-12-2023 Miscellaneous Notes Patient sent [employer] message requesting the following refill. Requested Prescriptions Pending Prescriptions Disp Refills levothyroxine (SYNTHROID) 50 mcg tablet 90 tablet 1 Sig: Take 1 tablet by mouth once daily. Patient last appointment: 10/22/2023 Patient Phone numbers: [phone] (home) Request is for script(s) to be escript to pharmacy. Allie Arceo MA documented in this encounter [facility] 12-11-2023 Telephone encounter Note Last seen by RR on 12/04 [facility] 12-11-2023 Miscellaneous Notes Last seen by RR on 12/04 documented in this encounter [facility] 12-05-2023 Note [facility] Medical Records Department [address] [place] [address] History Physical Exam 12/05/23 1249 MR#: [id number] Acct: [id number] Name: SHERIN SANDOVAL Rep #: [id number] : 1995 28 From: Jolene Berry MD PCP: GLENN Persaud [place] [place]: [place] [address] History and Physical Date of Admission: 12/20/23 HPI: The patient is a 28 year old female presenting for pre-operative visit. She is scheduled for Hysteroscopy D C with polyp resection for AUB on 12/20/23. Procedure discussed along with risks, benefits and complications. Other alternatives discussed for management. Consent form signed? Yes. PAST MEDICAL HISTORY PAST MEDICAL HISTORY Diagnosis Date ??? 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 attack ??? Hypothyroidism ??? Iron deficiency anemia ??? Kidney stones PAST SURGICAL HISTORY PAST SURGICAL HISTORY Procedure Laterality Date ??? CATH/STENT RENAL DRAINAGE ??? EXTRACTION ERUPTED TOOTH/EXR wisdom teeth ??? LITHOTRIPSY XTRCORP SHOCK WAVE X 2 ??? REMOVAL OF HEEL SPUR Right CURRENT MEDICATIONS Current Outpatient Medications Medication Sig Dispense Refill ??? megestrol (MEGACE) 20 mg tablet Take 1 tablet (20 mg) by mouth two times a day for 10 days. 20 tablet 1 ??? busPIRone (BUSPAR) 15 mg tablet Take 1 tablet by mouth three times a day. 270 tablet 0 ??? FLUoxetine (PROZAC) 20 mg capsule Take 1 capsule by mouth once daily. 90 capsule 1 ??? levothyroxine (SYNTHROID) 50 mcg tablet Take 1 tablet by mouth once daily. 90 tablet 0 ??? hydrOXYzine HCl (ATARAX) 10 mg tablet Take 1 tablet by mouth two times a day as needed. 90 tablet 2 No current facility-administered medications for this visit. ALLERGIES: Patient has no known allergies. PERSONAL HISTORY: SOCIAL HISTORY Social History Tobacco Use ??? Smoking status: Never Passive exposure: Never ??? Smokeless tobacco: Never Vaping Use ??? Vaping Use: Never used Substance Use Topics ??? Alcohol use: Not Currently ??? Drug use: Never FAMILY HISTORY: FAMILY HISTORY FAMILY HISTORY Problem Relation Age of Onset ??? Breast Cancer Mother ??? other (hysterectomy) Mother ??? Cervical Cancer Mother ??? other (throat cancer) Father ??? No Known Problems Sister ??? No Known Problems Sister ??? Diabetes Brother ??? No Known Problems Brother ??? No Known Problems Brother ??? Cervical Cancer Maternal Grandmother ??? Dementia Maternal Grandfather REVIEW OF SYMPTOMS: GENERAL: denies fevers or chills ENDOCRINOLOGY: has not been on steroids Cardiology : denies palpitations or chest pain Respiratory: denies SOB or cough Hematology: denies history of prolonged bleeding or easy bruising or VTE Allergy: Denies history of personal or family history of allergy to anesthesia PHYSICAL EXAMINATION: VITALS: Blood pressure 136/98, pulse 87, height 163.8 cm (5' 4.5), weight 133.8 kg (295 lb), SpO2 100%. GENERAL: The patient is well nourished, well hydrated in no acute distress. , The patient is oriented to time, place, and person. NECK: Supple. No lynphadenopathy, normal thyroid, no thyromegaly. LUNGS: Clear to auscultation bilaterally. no wheezes, rhonchi or rales HEART: Regular rate and rhythm, Normal heart sounds, and No murmurs or gallops IMPRESSION: AUB, morbid obesity PLAN: The risks/benefits/alternatives and personal involved for the planned hysteroscopy D C polyp resection and IUD insertion were reviewed with the patient. Her questions were answered to her satisfaction and she desires to proceed. Consent was signed. I reviewed with her postop instructions and expectations. If uterus 7 Cm or greater on sound, trial dante, if now return next week to office for paracervical block and Kyleena I have reviewed and updated past medical and surgical history, medications and allergies Assessment Plan Assessment/Plan (1) Menorrhagia: (2) Endometrial polyp: (3) Iron deficiency: 12/05/23 1249 Cosigner Signature (if applicable): CC: GLENN Riojas; Dr. Jolene Berry MD Signed ADDENDUM by Dr. Jolene Berry MD on 12/20/23 at 1427 Addendum UPDATE- I have seen the patient and performed any clinically relevant updates to the history and physical exam. she does desires Liletta IUD insertion 12/20/23 5768 Cosigner Signature (if applicable): cc: GLENN Riojas; Dr. Jolene Berry MD * Signed [facility] 12-05-2023 History and physical note Pre-Op History and Physical HPI: The patient is a 28 year old female presenting for pre-operative visit. She is scheduled for Hysteroscopy D&C with polyp resection for AUB on 12/20/23. Procedure discussed along with risks, benefits and complications. Other alternatives discussed for management. Consent form signed? Yes. PAST MEDICAL HISTORY Diagnosis Date 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 attack Hypothyroidism Iron deficiency anemia Kidney stones PAST SURGICAL HISTORY Procedure Laterality Date CATH/STENT RENAL DRAINAGE EXTRACTION ERUPTED TOOTH/EXR wisdom teeth LITHOTRIPSY XTRCORP SHOCK WAVE X 2 REMOVAL OF HEEL SPUR Right Current Outpatient Medications Medication Sig Dispense Refill megestrol (MEGACE) 20 mg tablet Take 1 tablet (20 mg) by mouth two times a day for 10 days. 20 tablet 1 busPIRone (BUSPAR) 15 mg tablet Take 1 tablet by mouth three times a day. 270 tablet 0 FLUoxetine (PROZAC) 20 mg capsule Take 1 capsule by mouth once daily. 90 capsule 1 levothyroxine (SYNTHROID) 50 mcg tablet Take 1 tablet by mouth once daily. 90 tablet 0 hydrOXYzine HCl (ATARAX) 10 mg tablet Take 1 tablet by mouth two times a day as needed. 90 tablet 2 No current facility-administered medications for this visit. ALLERGIES: Patient has no known allergies. PERSONAL HISTORY: Social History Tobacco Use Smoking status: Never Passive exposure: Never Smokeless tobacco: Never Vaping Use Vaping Use: Never used Substance Use Topics Alcohol use: Not Currently Drug use: Never FAMILY HISTORY: FAMILY HISTORY Problem Relation Age of Onset Breast Cancer Mother other (hysterectomy) Mother Cervical Cancer Mother other (throat cancer) Father No Known Problems Sister No Known Problems Sister Diabetes Brother No Known Problems Brother No Known Problems Brother Cervical Cancer Maternal Grandmother Dementia Maternal Grandfather REVIEW OF SYMPTOMS: GENERAL: denies fevers or chills ENDOCRINOLOGY: has not been on steroids Cardiology : denies palpitations or chest pain Respiratory: denies SOB or cough Hematology: denies history of prolonged bleeding or easy bruising or VTE Allergy: Denies history of personal or family history of allergy to anesthesia PHYSICAL EXAMINATION: VITALS: Blood pressure 136/98, pulse 87, height 163.8 cm (5' 4.5), weight 133.8 kg (295 lb), SpO2 100%. GENERAL: The patient is well nourished, well hydrated in no acute distress. , The patient is oriented to time, place, and person. NECK: Supple. No lynphadenopathy, normal thyroid, no thyromegaly. LUNGS: Clear to auscultation bilaterally. no wheezes, rhonchi or rales HEART: Regular rate and rhythm, Normal heart sounds, and No murmurs or gallops IMPRESSION: AUB, morbid obesity PLAN: The risks/benefits/alternatives and personal involved for the planned hysteroscopy D&C polyp resection and IUD insertion were reviewed with the patient. Her questions were answered to her satisfaction and she desires to proceed. Consent was signed. I reviewed with her postop instructions and expectations. If uterus 7 Cm or greater on sound, trial liletta, if now return next week to office for paracervical block and Kyleena I have reviewed and updated past medical and surgical history, medications and allergies Jolene Berry M.D. [facility] 12-05-2023 History and physical note Pre-Op History and Physical HPI: The patient is a 28 year old female presenting for pre-operative visit. She is scheduled for Hysteroscopy D&C with polyp resection for AUB on 12/20/23. Procedure discussed along with risks, benefits and complications. Other alternatives discussed for management. Consent form signed? Yes. PAST MEDICAL HISTORY Diagnosis Date 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 attack Hypothyroidism Iron deficiency anemia Kidney stones PAST SURGICAL HISTORY Procedure Laterality Date CATH/STENT RENAL DRAINAGE EXTRACTION ERUPTED TOOTH/EXR wisdom teeth LITHOTRIPSY XTRCORP SHOCK WAVE X 2 REMOVAL OF HEEL SPUR Right Current Outpatient Medications Medication Sig Dispense Refill megestrol (MEGACE) 20 mg tablet Take 1 tablet (20 mg) by mouth two times a day for 10 days. 20 tablet 1 busPIRone (BUSPAR) 15 mg tablet Take 1 tablet by mouth three times a day. 270 tablet 0 FLUoxetine (PROZAC) 20 mg capsule Take 1 capsule by mouth once daily. 90 capsule 1 levothyroxine (SYNTHROID) 50 mcg tablet Take 1 tablet by mouth once daily. 90 tablet 0 hydrOXYzine HCl (ATARAX) 10 mg tablet Take 1 tablet by mouth two times a day as needed. 90 tablet 2 No current facility-administered medications for this visit. ALLERGIES: Patient has no known allergies. PERSONAL HISTORY: Social History Tobacco Use Smoking status: Never Passive exposure: Never Smokeless tobacco: Never Vaping Use Vaping Use: Never used Substance Use Topics Alcohol use: Not Currently Drug use: Never FAMILY HISTORY: FAMILY HISTORY Problem Relation Age of Onset Breast Cancer Mother other (hysterectomy) Mother Cervical Cancer Mother other (throat cancer) Father No Known Problems Sister No Known Problems Sister Diabetes Brother No Known Problems Brother No Known Problems Brother Cervical Cancer Maternal Grandmother Dementia Maternal Grandfather REVIEW OF SYMPTOMS: GENERAL: denies fevers or chills ENDOCRINOLOGY: has not been on steroids Cardiology : denies palpitations or chest pain Respiratory: denies SOB or cough Hematology: denies history of prolonged bleeding or easy bruising or VTE Allergy: Denies history of personal or family history of allergy to anesthesia PHYSICAL EXAMINATION: VITALS: Blood pressure 136/98, pulse 87, height 163.8 cm (5' 4.5), weight 133.8 kg (295 lb), SpO2 100%. GENERAL: The patient is well nourished, well hydrated in no acute distress. , The patient is oriented to time, place, and person. NECK: Supple. No lynphadenopathy, normal thyroid, no thyromegaly. LUNGS: Clear to auscultation bilaterally. no wheezes, rhonchi or rales HEART: Regular rate and rhythm, Normal heart sounds, and No murmurs or gallops IMPRESSION: AUB, morbid obesity PLAN: The risks/benefits/alternatives and personal involved for the planned hysteroscopy D&C polyp resection and IUD insertion were reviewed with the patient. Her questions were answered to her satisfaction and she desires to proceed. Consent was signed. I reviewed with her postop instructions and expectations. If uterus 7 Cm or greater on sound, trial liletta, if now return next week to office for paracervical block and Kyleena I have reviewed and updated past medical and surgical history, medications and allergies Jolene Berry M.D. documented in this encounter [facility] 12-05-2023 History of Present illness Narrative Sherin Sandoval is a 28 year old female who presents for problem visit for AUB, heavy. HPI: 28 YOF w/ long standing h/o of AUB. Currently bleeding heavily. Started on megace currently. Tried aygestin, control pills, tranexemic acid as well. DOes not currently desire . Had Mirena in the past and had a lot of pain w/ it. Thinks it was partially imbeded in the uterus. This was 2016. 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 History Comments: Sexual Activity: Not Currently; Male Contraception: Pill PAST MEDICAL HISTORY Diagnosis Date 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 attack Hypothyroidism Iron deficiency anemia Kidney stones PAST SURGICAL HISTORY Procedure Laterality Date CATH/STENT RENAL DRAINAGE EXTRACTION ERUPTED TOOTH/EXR wisdom teeth LITHOTRIPSY XTRCORP SHOCK WAVE X 2 REMOVAL OF HEEL SPUR Right FAMILY HISTORY Problem Relation Age of Onset Breast Cancer Mother other (hysterectomy) Mother Cervical Cancer Mother other (throat cancer) Father No Known Problems Sister No Known Problems Sister Diabetes Brother No Known Problems Brother No Known Problems Brother Cervical Cancer Maternal Grandmother Dementia Maternal Grandfather Social History Tobacco Use Smoking status: Never Passive exposure: Never Smokeless tobacco: Never Vaping Use Vaping Use: Never used Substance Use Topics Alcohol use: Not Currently Drug use: Never Current Outpatient Medications Medication Sig megestrol (MEGACE) 20 mg tablet Take 1 tablet (20 mg) by mouth two times a day for 10 days. busPIRone (BUSPAR) 15 mg tablet Take 1 tablet by mouth three times a day. FLUoxetine (PROZAC) 20 mg capsule Take 1 capsule by mouth once daily. levothyroxine (SYNTHROID) 50 mcg tablet Take 1 tablet by mouth once daily. hydrOXYzine HCl (ATARAX) 10 mg tablet Take 1 tablet by mouth two times a day as needed. No current facility-administered medications for this visit. Allergies As of Date: 12/05/2023 (No Known Allergies) Fully Assessed 12/05/2023 REVIEW OF SYSTEMS Abdomen: No bloating, early satiety, indigestion, or increased flatulence. No abdominal pain, nausea, vomiting, diarrhea, or constipation. Bladder: No dysuria, gross hematuria, urinary frequency, urinary urgency, or incontinence. Breast: No breast lumps, nipple d/c, overlying skin changes, redness or skin retraction. Expanded ROS: N/A Allergies and current medication updated:Yes EXAM: BP 136/98 Pulse 87 Ht 5' 4.5 (1.64m) Wt 295 lb (133.8kg) SpO2 100% BMI 49.87 kg/(m^2). GENERAL: pleasant, female in no apparent distress Pelvic US, EMB, CBC and iron studies reviewed todayl ASSESSMENT AND PLAN: h/o chronic blood loss anemia, fe deficiency currently, H/o iron transfusions,. Now low fe but not anemic currently. Decision for surgery made. Strongly recommend IUD for menstrual control and contraception Jolene Berry MD documented in this encounter [facility] 12-04-2023 History of Present illness Narrative Sherin Sandoval is a 28 year old female who presents for a follow up. HPI: Sherin is here for a follow up of abnormal uterine bleeding. She continues to have heavy bleeding, even with TXA use. The bleeding has slowed down, but she states she is now wearing a diaper and changing 2-3 times per day. She is now feeling lightheaded/dizzy, fatigued. Hemoglobin was 12.6 six days ago. It is now 11.5 as of this morning. She is taking an iron supplement. Denies chest pain or shortness of breath. Has seen hematology in the past, but just for management of anemia. No known bleeding disorder. APTT 31.1 as of 09/23/23 PT10.7 as of 09/23/23 INR 1.0 as of 24 Iron 81 as of 11/28/23 TIBC 423 as of 11/28/23 Transferrin Saturation 19.1 as of 11/28/23 Ferritin 14.2 as of 11/28/23 Factor VIII workup not done. Planning for hysteroscopy D+C with Dr. Russell. Scott notes that she does not ever want to become . Mirena IUD is recommended. Has tried IUD in the past, but experienced continued bleeding and cramping even after several weeks. She continues to have back pain to her left side that radiates to the front and contributes to her cramping. 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 History Comments: Sexual Activity: Not Currently; Male Contraception: No contraception data on record PAST MEDICAL HISTORY Diagnosis Date 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 attack Hypothyroidism Iron deficiency anemia Kidney stones PAST SURGICAL HISTORY Procedure Laterality Date CATH/STENT RENAL DRAINAGE EXTRACTION ERUPTED TOOTH/EXR LITHOTRIPSY XTRCORP SHOCK WAVE REMOVAL OF HEEL SPUR FAMILY HISTORY Problem Relation Age of Onset Breast Cancer Mother other (hysterectomy) Mother Cervical Cancer Mother other (throat cancer) Father No Known Problems Sister No Known Problems Sister Diabetes Brother No Known Problems Brother No Known Problems Brother Cervical Cancer Maternal Grandmother Dementia Maternal Grandfather Social History Tobacco Use Smoking status: Never Passive exposure: Never Smokeless tobacco: Never Vaping Use Vaping Use: Never used Substance Use Topics Alcohol use: Not Currently Drug use: Never Current Outpatient Medications Medication Sig tranexamic acid (LYSTEDA) 650 mg tablet Take 2 tablets by mouth every 8 hours for 5 days. busPIRone (BUSPAR) 15 mg tablet Take 1 tablet by mouth three times a day. FLUoxetine (PROZAC) 20 mg capsule Take 1 capsule by mouth once daily. levothyroxine (SYNTHROID) 50 mcg tablet Take 1 tablet by mouth once daily. hydrOXYzine HCl (ATARAX) 10 mg tablet Take 1 tablet by mouth two times a day as needed. No current facility-administered medications for this visit. 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 Abnormal uterine bleeding - ICD9: 626.9, ICD10: N93.9 (primary diagnosis) - Continue iron supplement and push fluids - To go to ER with chest pain or shortness of breath - Knows provider can order CBC and can obtain at any time with worsening symptoms. Will manage on an outpatient basis in as safe manner as possible. Reviewed signs of when to go to ER. - Planning for hysteroscopy D+C with Dr. Berry, possible Mirena IUD. Has tried IUD in the past with continued bleeding and cramping. - Discussed options of Megace vs Depo. R/B reviewed. Sherin opts for Megace. To notify if not helping or bleeding worsening. 2. Pelvic pain in female - ICD9: 625.9, ICD10: R10.2 - URINE CULTURE John Luque APRN.CNP Medical Decision Making: Problems: Moderate: Acute illness with systemic symptoms Data: Unique test result(s) reviewed: 1 Unique test(s) ordered: 1 Risk: Low: Low risk from testing/treatment Moderate: Drug management Medical Decision Making Level: 4 - Moderate documented in this encounter [facility] 12-02-2023 Telephone encounter Note Patient notified. Will leave open for RR's response. Riana Curiel RN [facility] 12-02-2023 Miscellaneous Notes Patient notified. Will leave open for RR's response. Riana Curiel RN Please also inform patient that biopsy is benign. John Luque APRN.CNP Discontinue Aygestin. Rx sent for TXA sent instead. Will discuss case with physician. John Luque APRN.CNP Patient did go to [facility] ER over the weekend d/t bleeding. States her blood count levels were normal. Still having about the same amount of heavy bleeding today. Denies chest pain, shortness of breath, dizziness, weakness or fatigue. She is still taking Aygestin TID. Will printe ER records and give to to review. Please advise. Riana Curiel RN documented in this encounter [facility] 12-02-2023 Telephone encounter Note Please also inform patient that biopsy is benign. John Luque APRN.CNP [facility] 12-02-2023 Telephone encounter Note Discontinue Aygestin. Rx sent for TXA sent instead. Will discuss case with physician. John Luque APRN.CNP [facility] 12-02-2023 Telephone encounter Note Patient did go to [facility] ER over the weekend d/t bleeding. States her blood count levels were normal. Still having about the same amount of heavy bleeding today. Denies chest pain, shortness of breath, dizziness, weakness or fatigue. She is still taking Aygestin TID. Will printe ER records and give to to review. Please advise. Riana Curiel RN [facility] 11-28-2023 History of Present illness Narrative Control Area Operator offered: Patient declines. Sherin is a 28 year old who presents today for an endometrial biopsy for abnormal uterine bleeding. test: negative UNIVERSAL PROTOCOL / SAFETY CHECKLIST Procedure to be Performed: Endometrial Biopsy Sign In: A Moment of CARE was completed. Personnel directly involved with the procedure wore the appropriate PPE (Personal Protective Equipment). Patient/Surrogate Stated/Verified: PATIENT VERIFIED(optional for EMERGENT procedures): Patient name, Date of , Relevant allergies, and The intended procedure Time Out Communication: Intended patient and procedure match the source documents. Consent documented and matches the intended procedure. Sign Out: SIGN OUT (optional for EMERGENT procedures): All specimen containers correctly labeled. All instruments, equipment, possible retained foreign bodies accounted for. Post-procedure follow-up management communicated and Plan of Care Visit completed when applicable. PROCEDURE: EXTERNAL GENITALIA: Normal in appearance without lesions VAGINA: Normal in appearance without lesions BIOPSY: Speculum placed into the vagina with excellent visualization of the cervix. Cervix cleaned with betadine. Anterior lip of cervix grasped with single toothed tenaculum. Uterus sounded to 7 cm. Pipelle inserted into the uterus without difficulty and endometrial biopsy obtained. Specimen labeled and sent to pathology. Hemostasis achieved. Procedure Summary: Patient tolerated procedure well. ASSESSMENT: abnormal uterine bleeding PLAN: Specimens labeled and sent to Pathology. Will notify patient of results in 1-2 weeks. Post-procedure instructions reviewed and written material given to the patient. Repeat CBC ordered. Changing a pad every couple of hours. Reviewed bleeding precautions. Discussed senior care management plans. Has tried IUD, pills, and NuvaRing in the past and did not tolerate. Discussed possible one dose of Depo until Sherin can have surgery - hysteroscopy D+C. Sherin wants hysterectomy. Reviewed risks and other management options first. Will discuss case with physician. John Luque APRN.SOLUTIONS EXECUTIVE SECURITY documented in this encounter [facility] 11-28-2023 Instructions Mildred Contreras MA - 11/28/2023 11:27 AM EDT YOUR RECOVERY After your biopsy you may have: Vaginal bleeding (less than a normal menstrual period) Mild cramping Do NOT put anything in the vagina for 1 week after your endometrial biopsy. This includes: tampons douches and refraining from having sexual intercourse If you have any discomfort, you may take an over the counter pain medication (motrin, advil, ibuprofen, tylenol, etc). If this does not relieve your discomfort, contact the office. It is okay to wear a sanitary pad until the discharge and spotting stops. RISKS Although problems seldom occur with endometrial biopsies, there can be some complications. You may feel faint during and shortly after the procedure as well as have some bleeding after the procedure. There is also a risk of infection after the procedure. These complications are rare and can be easily treated. You should contact you doctor is you have any of the following: Heavy bleeding (more than your normal period) Bleeding with clots Severe abdominal pain Fever (more than 100.4F) Foul smelling vaginal discharge RESULTS We will have the results of your biopsy in 1-2 weeks. If you do not hear the results of your biopsy after 2 weeks, please contact the office for the results. If you have any additional questions or concerns please do not hesitate to contact the office. documented in this encounter [facility] 11-22-2023 History of Present illness Narrative Images from the original note were not included. Rheumatology CONSULTATION Date of Service: 11/22/2023 Patient: Sherin Sandoval Primary Care Physician: Javier Riojas APRN.SOLUTIONS EXECUTIVE SECURITY Last Rheumatology visit: None at [facility] Referring Provider: Javier Riojas [address] [phone] Sherin Sandoval is here today at request of Dr. Riojas specifically for consultation of my opinion in regards to the chief complaint listed below. Correspondence will be shared today via the [facility] electronic health record or through regular mail, where applicable. History of Present Illness Sherin Sandoval is a 28 year old White female with hsitory of hypothyroidism and anemia who presents on 11/22/2023 for an in-person visit for evaluation of Abnormal Lab. Sherin is RF negative - 9 (09/23/2023). Her most recent SHIRA was negative (09/23/2023). SHIRA checked for fatigue. Negative SHIRA qual screen (negative dsDNA, Chromatin, Ribosomal P, SS-A 60, SS-A 52, SS-B, Sm, SmRNP, MANAGER SQL A, MANAGER SQL 68, Scl-70, Barbara-1, and Centromere B), negative RF, Mildly elevated WSR 24, 1.6, LAC screen that was indeterminate A few years ago (~2018) after an iron transfusion for Hgb 9, she had a series of events and has not felt well since. She had a bad kidney stone with pylonephritis, with continued flank pain. Her Hgb dropped again and got her second iron infusion. No clear reason for low iron levels and unclear if there was AIHA work up. She does report heavy periods and persistent menstrual bleeding. She is currently most bothered by excess fatigue and post-exertional malaise. She experiences generalized heaviness and weakness, not just proximal muscles. When she over exerts (stays outside for too long, tosses her trash, even just stands to shower), she either immediate or next day feels nausea. Then sometimes next day she will get low grade temperatures (<100, typically 99) and feels sick (exhaustion, lightheaded, dizzy, and worse with movement). Alternates between diarrhea and constipation. She has not seen gastroenterology Alleviated by no clear factors Hexagonal phase screen and confirmation was mildly elevated 48.7 so LAC is indertminate No history of DVT/PE, she had one miscarriage due to ectopic but no other known miscarriages. No new medications, supplements during her period of fatigue. Unintentional weight gain and is also less active. Hair shedding wo bald patches When she is tired, she will get chest pressure and fatigue. Showering is too exhausting but ok in baths or pool Her period does not stop and has daily bleeding. No other known easy bleeding Feels that her whole hand swells with heat and is better with cold Positive in bold otherwise negative fever (<100), alopecia, malar rash, oral/nasal ulcers, serositis, photosensitivity, joint swelling/EMS, hematuria, foaming urine, psychosis, delirium, seizure, Raynaud's, renal issues, known low WBC, Hgb, Plt, neutrophils, lymphocytes, miscarriages, pre-eclampsia, blood clots Pain Evaluation 11/13/2023 Pain Evaluation Pain Score 5 Location Back-Lower Location Comment And lower abdominal pain Description Cramping;Dull Duration (#) 1 Duration (Timeframe) Weeks Frequency Continuous Intervention Medication Patient-Entered Data PROMIS Assessments 09/22/2023 PROMIS Global Health - (T-Scores - the mean of general population = 50. Five points is a clinically meaningful difference.) Physical T-Score 32.4 Mental T-Score 33.8 09/22/2023 10/02/2023 PROMIS CAT Pain Interference PROMIS Pain Interference T-Score (range: 10 - 90) 62 (moderate) PROMIS Pain Interference Percentile 12 PROMIS Adult Short Form-Global Health Score (Mental) 33.8 (Fair) 10/02/2023 PROMIS CAT Fatigue PROMIS Fatigue T-Score 74 (severe) PROMIS Fatigue Percentile 1 10/02/2023 PROMIS PHYSICAL FUNCTION T-SCORE PROMIS Physical Function T-Score 30 (moderate dysfunction) Physical Function Percentile 2 RAPID 3 [place] Activities of Daily Living 11/20/2023 12:45 PM 10/02/2023 9:49 PM Dress self? With SOME difficulty With SOME difficulty Get in and out of bed? With SOME difficulty With SOME difficulty Walk outdoors? Without ANY difficulty Without ANY difficulty Wash and dry body? With SOME difficulty With SOME difficulty Get in and out of car? Without ANY difficulty Without ANY difficulty RAPID 3 Disease Activity Weighed Score Levels: 0 - 1: Near Remission 1.3 - 2.0: Low Severity 2.3 - 4.0: Moderate Severity 4.3 - 10.0: High Severity 10/02/2023 11/20/2023 RAPID-3 Weighed Score RAPID 3 Weighed Score 5.11 (High severity ) 5.11 (High severity ) 11/20/2023 RAPID-3 Weighed Score Percentage Change Compared to Last Score 0 Review of Systems Review of Systems CONSTITUTION: Positive for: Recent weight change Negative for: Fever HEENT: Negative for: Nosebleeds, Mouth sores, Trouble swallowing and Dry mouth RESPIRATORY: Positive for: Shortness of breath and Pain with breathing Negative for: Cough GASTROINTESTINAL: Positive for: Diarrhea, Heartburn and Abdominal pain Negative for: Melena MUSCULOSKELETAL: Positive for: Arthralgias, Myalgias, Muscle weakness, Joint swelling and Morning Joint Stiffness NEUROLOGICAL: Positive for: Headaches and Numbness Negative for: Memory loss SKIN: Positive for: Hair loss Negative for: Rash, Skin changes and Nail changes EYES: Negative for: Eye pain, Eye redness, Eye dryness and visual disturbance CARDIOVASCULAR: Positive for: Chest pain and Leg swelling GENITOURINARY: Negative for: Dysuria and Hematuria HEMATOLOGIC/LYMPHATIC: Negative for: Swollen glands All other reviewed and negative other than HPI. Past Medical History PAST MEDICAL HISTORY Diagnosis Date 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 attack Hypothyroidism Iron deficiency anemia Kidney stones Past Surgical History PAST SURGICAL HISTORY Procedure Laterality Date CATH/STENT RENAL DRAINAGE EXTRACTION ERUPTED TOOTH/EXR LITHOTRIPSY XTRCORP SHOCK WAVE REMOVAL OF HEEL SPUR Family History FAMILY HISTORY Problem Relation Age of Onset Breast Cancer Mother other (hysterectomy) Mother Cervical Cancer Mother other (throat cancer) Father No Known Problems Sister No Known Problems Sister Diabetes Brother No Known Problems Brother No Known Problems Brother Cervical Cancer Maternal Grandmother Dementia Maternal Grandfather Second cousin with lupus. Brother with DM (unsure DM1 vs DM2) Social History Social History Tobacco Use Smoking status: Never Passive exposure: Never Smokeless tobacco: Never Vaping Use Vaping Use: Never used Substance Use Topics Alcohol use: Not Currently Drug use: Never Current Medications Current Outpatient Medications Medication Sig norethindrone (AYGESTIN) 5 mg tablet Take 1 tablet by mouth 3 times per day until bleeding stops. Then take daily for 3 days. busPIRone (BUSPAR) 15 mg tablet Take 1 tablet by mouth three times a day. FLUoxetine (PROZAC) 20 mg capsule Take 1 capsule by mouth once daily. levothyroxine (SYNTHROID) 50 mcg tablet Take 1 tablet by mouth once daily. hydrOXYzine HCl (ATARAX) 10 mg tablet Take 1 tablet by mouth two times a day as needed. Labs Latest Ref Rng & Units 08/26/2023 11/04/2023 11/20/2023 CBC WBC 3.70 - 11.00 k/uL 9.52 8.54 9.25 Hemoglobin 11.5 - 15.5 g/dL 12.7 12.3 12.5 Hematocrit 36.0 - 46.0 % 38.9 38.3 39.8 Platelet Count 150 - 400 k/uL 379 387 482 Abs Neut (ANC) 1.45 - 7.50 k/uL 6.07 Abs Lymph 1.00 - 4.00 k/uL 2.49 Latest Ref Rng & Units 08/26/2023 11/04/2023 CMP Sodium 136 - 144 mmol/L 140 137 Potassium 3.7 - 5.1 mmol/L 4.4 4.3 Chloride 98 - 107 mmol/L 105 105 CO2 22 - 30 mmol/L 25 21 Glucose 74 - 99 mg/dL 92 98 BUN 7 - 21 mg/dL 12 18 Creatinine 0.58 - 0.96 mg/dL 0.60 0.70 Calcium 8.5 - 10.2 mg/dL 9.3 9.3 AST 13 - 35 U/L 17 14 ALT 7 - 38 U/L 16 16 Alkaline Phosphatase 34 - 123 U/L 90 91 Latest Ref Rng & Units 09/23/2023 ESR, WSR WSR 0 - 20 mm/hr 24 Latest Ref Rng & Units 09/23/2023 CRP CRP <0.9 mg/dL 1.6 Latest Ref Rng & Units 09/23/2023 RF and CCP Rheumatoid Factor <16 IU/mL <10 Latest Ref Rng & Units 09/23/2023 Antibodies Beta 2 Glycoprotein, IgM <20 SMU <9 Cardiolipin Ab, IgG <15.0 GPL 9.5 Cardiolipin Ab, IgM <12.5 MPL <9.0 Cardiolipin Ab, IgA <12.0 APL <9.0 PT Sec 9.7 - 13.0 sec 10.7 PT INR 0.9 - 1.3 1.0 APTT 23.0 - 32.4 sec 31.1 Platelet Neut <1.9 Seconds 0.0 DRVVT Screen 32.0 - 45.7 seconds 34.7 DRVVT Confirm Ratio <1.32 0.99 DRVVT 1:1 Mix 32.0 - 45.7 seconds 36.1 Hex Phase Screen 34.0 - 51.8 seconds 55.8 Hex Phase Confirm 34.2 - 47.9 seconds 48.7 Hex Phase Delta <7.1 delta seconds 7.2 APTT Screen 24.0 - 35.1 seconds 33.6 Thrombin Time <18.6 seconds <16.8 Anti Xa Inhib Assay <0.10 <0.10 Imaging Last XR Chest - Impression Only XR CHEST 1V FRONTAL Exam End: 11/20/2021 3:05 PM (Final result) Health Maintenance Current Immunizations Reviewed on 11/22/2023 Name Date COVID-19 vaccine, season ([employer]) 08/26/2023 COVID-19 vaccine, monovalent (MODERNA) 08/17/2020 tetanus diphtheria pertussis (Tdap) vaccine 05/13/2021 Physical Exam VITAL SIGNS: BP 155/112 Pulse 92 Temp (Src) 98.3 (Temporal) Ht 5' 4 (1.63m) Wt 300 lb 14.9 oz (136.5kg) BMI 51.63 kg/(m^2). Physical Exam GEN: NAD SKIN: No rash, no nail pitting EYES: no eye erythema HENT: No oral ulcers, normal external examination of the ears and nose, lips, oropharynx and tongue, normal salivary flow NECK: No mass or asymmetry. RESPIRATORY: Normal respiratory effort. CTAB CARDIOVASCULAR: RRR without gallop, murmur, or rub ABDOMEN: BS normal. No tenderness NEUROLOGIC: 5/5 strength in biceps/triceps, 5/5 strength in quads/hamstring, 5/5 knee flexors/extensors MUSCULOSKELETAL EXAMINATION: Full ROM of UE and LE with the following exceptions: -No exceptions No tenderness, synovitis effusion of the neck, bl shoulders, elbows, wrists, hands, SI, trochanteric bursa, knees, ankles, and toes with the following exceptions: - tenderness and swelling as per homunculus otherwise normal There is currently no information documented on the homunculus. Go to the Rheumatology activity and complete the homunculus joint exam. Joint Exam 11/22/2023 No joint exam has been documented for this visit Joint Exam Data (across time) Impression/Plan Diagnoses: (R11.0) Nausea (primary encounter diagnosis) (R89.9) Abnormal laboratory test (R53.1) Weakness 28 year old woman with history of hypothyroidism and anemia who presents for evaluation of years of fatigue and post-exertional fatigue. No clear rheumatic etiology for her symptoms. Though she has elevated temperatures, she does not get fevers (>100.4) or high grade fevers (>103-104) to suggest still's or fever syndromes. Her SHIRA qual screen was negative (DALY) making SLE unlikely and aside from anemia of unknown etiology (now normal after iron infusion) she does not have lupus specific symptoms. There is no history of EMS or synovitis on exam to suggest inflammatory arthritis. She feels total body weakness but her strength exam and there are no DM specific rashes, making inflammatory myositis/DM less likely - CK, aldolase - Nausea/diarrhea/constipation. Refer to gastroenterology - Consider hematology if she becomes anemic again especially with her reported daily uterine bleeding - Discussed that her SHIRA screen which includes multiplex for ENAs. This with lack of lupus specific sx makes SLE/CTD unlikely - Her lupus anticoagulant screen had phospholipid dependence but mixing study was negative. Her B2-Gp1 and CL were normal. Discussed that the lupus anticoagulant screen is typically used to assess for anti-phospholipid syndrome (APLS), which is a condition that predisposes to blood clots (DVT, PE) or obstetric complications (recurrent miscarriage, pre-eclampsia, eclampsia). She does not have these features. Could consider repeat testing after >12 weeks as there are many false positive, but unclear that she clinically has a reason to test for APLS - Discussed that mildly elevated SED/CRP could be related to her weight as weight is the most common reason for mildly elevated SED/CRP if no other etiology is found Orders this visit: Office Visit on 11/22/23 CREATINE KINASE/CK ALDOLASE BLD CONSULT TO RHEUM/IMMUN DISEASE CONSULT TO GASTROENTEROLOGY Return if symptoms worsen or fail to improve. I spent a total of 50 minutes on the date of the service which included preparing to see the patient, [id number] patient care, completing clinical documentation, obtaining and/or reviewing separately obtained history, performing a medically appropriate examination, counseling and educating the patient/family/caregiver, and communicating results to the patient/family/caregiver. ___ Joe Jean MD PhD Rheumatology documented in this encounter [facility] 11-21-2023 Telephone encounter Note Patient has an appointment 11/27 with . I have advised her to seek immediate treatment if bleeding increases-changing a saturated pad every hour for several hours, the development of chest pain, SOB or palpitations. To keep appt 11/27 with John Luque [facility] 11-21-2023 Miscellaneous Notes Patient has an appointment 11/27 with [facility]. I have advised her to seek immediate treatment if bleeding increases-changing a saturated pad every hour for several hours, the development of chest pain, SOB or palpitations. To keep appt 11/27 with John Luque Left message for patient to call office. Tammy Flores RN ----- Message from Vikki Sandoval MD sent at 11/21/2023 7:49 AM EDT ----- Patients Hemoglobin is normal would take aygestin- follow up with [facility] upon her return. Call if bleeding gets worse. documented in this encounter [facility] 11-21-2023 Telephone encounter Note Left message for patient to call office. Tammy Flores RN [facility] 11-21-2023 Telephone encounter Note ----- Message from Vikki Sandoval MD sent at 11/21/2023 7:49 AM EDT ----- Patients Hemoglobin is normal would take aygestin- follow up with E[facility] upon her return. Call if bleeding gets worse. [facility] 11-20-2023 Telephone encounter Note Would recommend continue taking aygestin 5mg TID - can order cbc. The bleeding should slow. If she feels dizzy or sob, cp needs to go to ER. [facility] 11-20-2023 Miscellaneous Notes Would recommend continue taking aygestin 5mg TID - can order cbc. The bleeding should slow. If she feels dizzy or sob, cp needs to go to ER. Can you please review in [facility] absence. Thank you. documented in this encounter [facility] 11-20-2023 Telephone encounter Note Can you please review in E[facility] absence. Thank you. [facility] 11-13-2023 History of Present illness Narrative Control Area Operator offered: Patient declines. Sherin Sandoval is a 28 year old female who presents for a follow up visit of abnormal uterine bleeding. HPI: Sherin was here on 11/04/23 and reported heavy periods. They became irregular in high school, but have always been heavy. Periods are painful and heavy. She has been experiencing daily bleeding for about a year. She has a history of anemia. Has used OCP in the past - reported increased depression with it. Has used IUD in the past - painful ([id number]) History of abnormal paps. 2023 pap in process. She reports hirsutism. She tested positive for bacterial vaginosis on 11/03 and was treated with Flagyl. Fasting glucose was 98 (11/03), but hemoglobin A1c was 4.9 (August 2023) Has been taking Aygestin 3x a day, which stopped bleeding. However, when she tries to decrease to once per day, she starts bleeding again. Pelvic ultrasound in process. Currently seeing PCP for chronic fatigue, food aversions, random fevers. Following up with rheumatology for an indeterminate lupus panel. She has been having some back pain that radiates to the front as well. History of kidney stones. 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 History Comments: Sexual Activity: Not Currently; Male Contraception: No contraception data on record PAST MEDICAL HISTORY Diagnosis Date 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 attack Hypothyroidism Iron deficiency anemia Kidney stones PAST SURGICAL HISTORY Procedure Laterality Date CATH/STENT RENAL DRAINAGE EXTRACTION ERUPTED TOOTH/EXR LITHOTRIPSY XTRCORP SHOCK WAVE REMOVAL OF HEEL SPUR FAMILY HISTORY Problem Relation Age of Onset Breast Cancer Mother other (throat cancer) Father Diabetes Brother Dementia Maternal Grandfather Social History Tobacco Use Smoking status: Never Passive exposure: Never Smokeless tobacco: Never Vaping Use Vaping Use: Never used Substance Use Topics Alcohol use: Not Currently Drug use: Never Current Outpatient Medications Medication Sig busPIRone (BUSPAR) 15 mg tablet Take 1 tablet by mouth three times a day. FLUoxetine (PROZAC) 20 mg capsule Take 1 capsule by mouth once daily. levothyroxine (SYNTHROID) 50 mcg tablet Take 1 tablet by mouth once daily. hydrOXYzine HCl (ATARAX) 10 mg tablet Take 1 tablet by mouth two times a day as needed. norethindrone (AYGESTIN) 5 mg tablet Take 1 tablet by mouth 3 times per day until bleeding stops. Then take daily for 3 days. No current facility-administered medications for this visit. Allergies As of Date: 11/13/2023 (No Known Allergies) Fully Assessed 11/04/2023 REVIEW OF SYSTEMS Bladder: No dysuria, gross hematuria, urinary frequency, urinary urgency, or incontinence. + low back pain that radiates to front Expanded ROS: HAND BOOKED FOLDER AND STITCHER: Positive for abnormal vaginal bleeding Allergies and current medication updated:Yes EXAM: BP 140/88 Pulse 98 Resp 18 Wt 303 lb (137.4kg) SpO2 98% GENERAL: pleasant, female in no apparent distress HEENT: Normocephalic, atraumatic, mucus membranes moist, and no lesions CHEST: Normal inspiratory effort NEURO: alert and oriented x3,exam grossly non-focal EXTREMITIES: normal ASSESSMENT AND PLAN: 1. Abnormal uterine bleeding - ICD9: 626.9, ICD10: N93.9 (primary diagnosis) - Suspect possible PCOS based on irregular cycles and hirsutism - Discussed Mirena IUD or progesterone only pill. Do not recommend Nexplanon or Depo due to potential side effect of weight gain - Do not recommend estrogen containing control until lupus is ruled out - Discussed risk of hyperplasia with obesity, recommend EMB. Sherin oglesby. - FOLLICLE STIMULATING HORMONE - ESTRADIOL-17B BLD - ENDOMETRIAL BIOPSY - Plan is to await ultrasound results and then perform EMB before deciding on intermediate project manager medication management. Has rheumatology appointment 11/21. 2. Pelvic pain in female - ICD9: 625.9, ICD10: R10.2 - Wrapping from low back to front - Urine culture - Push fluids - To go to ER for fever, chills, or severe pain - Recommend follow up with PCP 3. Class 3 severe obesity with body mass index (BMI) of 50.0 to 59.9 in adult, unspecified obesity type, unspecified whether serious comorbidity present (HCC) - ICD9: 278.01, V85.43, ICD10: E66.01, Z68.43 - Reviewed 5-10% weight loss can improve cycle regulation significantly - CONSULT TO [facility] WEIGHT MANAGEMENT PROGRAM John Luque APRN.CNP Medical Decision Making: Problems: Low: Acute, uncomplicated illness or injury Moderate: 1+ chronic illnesses with change Data: Unique test(s) ordered: 3+ Risk: Low: Low risk from testing/treatment Moderate: Drug management Medical Decision Making Level: 4 - Moderate documented in this encounter [facility] 11-12-2023 History of Present illness Narrative Radiology Service Progress Note PATIENT NAME: Sherin Sandoval DATE OF SERVICE: November 12, 2023 TIME: 9:23 AM PATIENT IDENTITY VERIFICATION COMPLETED USING TWO (2) IDENTIFIERS: Name and Date of confirmed by patient verbally. FALL SCREENING: Has the patient had 2 falls in the last year or 1 fall with injury or currently using an Ambulatory Assistive Device (Walker, Cane, Wheelchair, Crutches, etc.)? No PATIENT GENDER DATA: Female. status: : No status: NO. PATIENT RELEVANT IMPLANT DATA REVIEWED: Not Applicable PATIENT PRESENTS WITH AN IMPLANTABLE OR ATTACHED ORNAMENTAL BRONZE WORKER: No RADIOLOGY DEPARTMENT: Ultrasound PERIPHERAL IV DATA: Not applicable SIGNED BY: [address] November 12, 2023 9:23 AM documented in this encounter [facility] 11-11-2023 Telephone encounter Note Patient notified and verbalized understanding. Thuy Ace LPN [facility] 11-11-2023 Miscellaneous Notes Patient notified and verbalized understanding. Thuy Ace LPN Left message for patient to return call to office Inna Dotson MA Please let patient know their echo and heart monitor is normal. documented in this encounter [facility] 11-11-2023 Telephone encounter Note Left message for patient to return call to office Inna Dotson MA [facility] 11-11-2023 Telephone encounter Note Please let patient know their echo and heart monitor is normal. [facility] 11-04-2023 Note Addended by: JOHN LUQUE on: 11/04/2023 08:33 AM Modules accepted: Orders [facility] 11-04-2023 Miscellaneous Notes Addended by: JOHN LUQUE on: 11/04/2023 08:33 AM Modules accepted: Orders documented in this encounter [facility] 11-04-2023 History of Present illness Narrative Sherin Sandoval is a 28 year old female who presents for problem visit of abnormal uterine bleeding. HPI: Sherin has always had heavy periods. Started menarche around age 11. She noticed that they became irregular sometime in high school. She became anemic a few years ago and was put on control. Hemoglobin was down to 7 one year ago. She uses a pad/tampon on a light day every 4-5 hours. On heavy days, she has to use a tampon with two pads - changing every 1-2 hours. Periods are extremely painful. Reports large clots - describes them as a size of an Oreo. Has experiencing daily bleeding for about a year. Has not been taking OCP due to change in provider. Feels off on OCP - possible increased depression. Has not taken OCP in 1 year. Currently not sexually active due to bleeding issues and denies concern for . Has tried the IUD in the past - it was extremely painful ([id number]). Reports history of abnormal paps - history of colposcopy 1-2 years ago. She reports hirsutism. 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 History Comments: Sexual Activity: Not Currently; Male Contraception: No contraception data on record PAST MEDICAL HISTORY Diagnosis Date 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 attack Hypothyroidism Iron deficiency anemia Kidney stones PAST SURGICAL HISTORY Procedure Laterality Date CATH/STENT RENAL DRAINAGE EXTRACTION ERUPTED TOOTH/EXR LITHOTRIPSY XTRCORP SHOCK WAVE REMOVAL OF HEEL SPUR FAMILY HISTORY Problem Relation Age of Onset Breast Cancer Mother other (throat cancer) Father Diabetes Brother Dementia Maternal Grandfather Social History Tobacco Use Smoking status: Never Passive exposure: Never Smokeless tobacco: Never Vaping Use Vaping Use: Never used Substance Use Topics Alcohol use: Not Currently Drug use: Never Current Outpatient Medications Medication Sig busPIRone (BUSPAR) 15 mg tablet Take 1 tablet by mouth three times a day. FLUoxetine (PROZAC) 20 mg capsule Take 1 capsule by mouth once daily. levothyroxine (SYNTHROID) 50 mcg tablet Take 1 tablet by mouth once daily. hydrOXYzine HCl (ATARAX) 10 mg tablet Take 1 tablet by mouth two times a day as needed. No current facility-administered medications for this visit. Allergies As of Date: 11/04/2023 (No Known Allergies) Fully Assessed 11/04/2023 REVIEW OF SYSTEMS Abdomen: No bloating, early satiety, indigestion, or increased flatulence. No abdominal pain, nausea, vomiting + alternating constipation and diarrhea Bladder: No dysuria, gross hematuria, urinary frequency, urinary urgency, or incontinence. Breast: No breast lumps, nipple d/c, overlying skin changes, redness or skin retraction. Expanded ROS: HAND BOOKED FOLDER AND STITCHER: Positive for abnormal uterine bleeding Allergies and current medication updated:Yes EXAM: BP 134/70 Ht 5' 4 (1.63m) Wt 300 lb 12.8 oz (136.4kg) BMI 51.61 kg/(m^2). GENERAL: pleasant, female in no apparent distress CHEST: Normal inspiratory effort PELVIC: external genitalia normal, normal Bartholin's glands, urethra, [place]'s glands, no vulvar lesions, + difficulty completely visualizing cervix due to habitus, good vaginal support, physiologic discharge present, normal appearing perineal body and perianal region + menses BIMANUAL: uterus normal size, shape and consistency, no adnexal masses, and non-tender, limited due to habitus NEURO: alert and oriented x3,exam grossly non-focal EXTREMITIES: normal ASSESSMENT AND PLAN: Abnormal uterine bleeding - ICD9: 626.9, ICD10: N93.9 - PAP TEST - US FEMALE PELVIS TRANSVAG - COMPLETE BLOOD COUNT - COMPREHENSIVE METABOLIC PANEL - DHEA-S BLD - HYDROXYPROGESTERONE-17 - TESTOSTERONE, FREE AND TOTAL - THYROID STIMULATING HORMONE - T4 FREE/FREE THYROXINE - Aygestin rx sent - To notify if bleeding does not stop - To go to ER for lightheadedness, dizziness, shortness of breath Hypothyroidism, unspecified type - ICD9: 244.9, ICD10: E03.9 - THYROID STIMULATING HORMONE - T4 FREE/FREE THYROXINE RTO after labs and ultrasound to discuss management. Consider EMB. John Luque APRN.CNP Medical Decision Making: Problems: Moderate: 1+ chronic illnesses with change Data: Unique test result(s) reviewed: 3+ Unique test(s) ordered: 3+ Risk: Low: Low risk from testing/treatment Moderate: Drug management Medical Decision Making Level: 4 - Moderate documented in this encounter [facility] 10-31-2023 Note HNO ID: [id number] Author: KASSIDY PRAK MD Service: Cardiovascular Medicine Author Type: Physician Type: Procedures Filed: 11/01/2023 09:13 Note Text: [facility]- Tilt Table Test MIRIAM SANDOVALHUMERA Sanchez : 1995 AGE: 28 SEX: F ACCTNUM: [id number] [facility] SVC: LOCATION: ATTENDING PHYSICIAN: DATE OF STUDY: 10/31/2023 INDICATIONS: Dizziness and tachycardia. REPORT: The resting blood pressure was 156/86 mmHg. The patient was somewhat anxious. Her heart rate was 97 beats per minute with sinus rhythm on the EKG. The patient was tilted upright for 70 degrees for 30 minutes. The patient did feel dizziness as soon as she was tilted upright; however, her heart rate increased up to 113 beats per minute immediately on upright posture in 1 minute, but the blood pressure remained 156/99 mmHg. The patient did not have any symptoms of dizziness until 18 minute when she felt lightheaded. However, her blood pressure was 142/112 mmHg and heart rate was 107 beats per minute. This spell also lasted for 2 to 3 minutes. The patient was able to complete 30 minutes of upright tilt with the last blood pressure reading of 147/96 mmHg and the heart rate increased up to a maximum of 117 beats per minute. The patient felt feeling of heart with dizziness and then she was reclined back and her symptoms resolved, although she felt exhausted. CONCLUSION: 1. The patient did not have any vasodepressor syncope or neurocardiogenic syncope. 2. The patient does not have postural orthostatic tachycardia syndrome. 3. Her EKG did not show any arrhythmia and there was no ST-segment depression noted. Kassidy Park MD, [facility] Conservation Policy Analyst, Dept of Medicine, [facility]. Mechanical Engineering Director of Ambulatory Cardiology, [facility]. Mechanical Engineering Director of Cardiac Catheterization laboratory, [facility]. Asst. carnival worker, [facility] and [facility] Staff Hospitality Specialist, [facility] [place], Rakesh Elliott Department of Cardiovascular Medicine. QS:[id number] /[id number] [facility] 10-30-2023 Telephone encounter Note [facility]-10/22/23 Labs-08/26/23 NOV- none [facility] 10-30-2023 Miscellaneous Notes [facility]-10/22/23 Labs-08/26/23 NOV- none documented in this encounter [facility] 10-22-2023 History of Present illness Narrative EVENT MONITOR DISPOSABLE PATCH INSTRUCTIONS Patient Name: Sherin Sandoval Clinic Number: [id number] Skin prepped and cleansed with alcohol Patch secured to prepped area Monitor Activated Serial #: [id number] Patient Instructed: Prescribed order timeframe Bathing guidelines Usage of event button and diary documentation Return of monitor at the end of prescribed order Call with problems [phone] or [phone]. [phone] Patient expresses a good understanding of instructions Inna Dotson MA Chief Complaint Patient presents with: Follow Up HPI Sherin Sandoval is a 28 year old female who presents here today for Above Complaints.. Patient presents for anxiety follow up. Patient reports she is currently doing well with her anxiety and feels medications are doing well. Patient reports she is continuing to have severe fatigue, dizziness, heat intolerance and symptoms worsen with menstrual cycles. Past medical history, appointments, medications, allergies reviewed. Previous Medical History PAST MEDICAL HISTORY Diagnosis Date 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 attack Hypothyroidism Iron deficiency anemia Kidney stones Previous Surgical History PAST SURGICAL HISTORY Procedure Laterality Date CATH/STENT RENAL DRAINAGE EXTRACTION ERUPTED TOOTH/EXR LITHOTRIPSY XTRCORP SHOCK WAVE REMOVAL OF HEEL SPUR Family History FAMILY HISTORY Problem Relation Age of Onset Breast Cancer Mother other (throat cancer) Father Diabetes Brother Dementia Maternal Grandfather Patient Allergies ALLERGIES No Known Allergies Current Medications Current Outpatient Medications on File Prior to Visit Medication Sig busPIRone (BUSPAR) 15 mg tablet Take 1 tablet by mouth three times a day. FLUoxetine (PROZAC) 20 mg capsule Take 1 capsule by mouth once daily. levothyroxine (SYNTHROID) 50 mcg tablet Take 1 tablet by mouth once daily. hydrOXYzine HCl (ATARAX) 10 mg tablet Take 1 tablet by mouth two times a day as needed. No current facility-administered medications on file prior to visit. Social History Social History Tobacco Use Smoking status: Never Smokeless tobacco: Never Vaping Use Vaping Use: Never used Substance Use Topics Alcohol use: Not Currently Drug use: Never Review of Symptoms REVIEW OF SYSTEMS SEE HPI EXAM: BP 138/90 Pulse 108 Resp 14 Wt (!) 137.9 kg (304 lb) General Appearance: Well appearing, alert, in no acute distress, well-hydrated, well nourished.. Lungs: Lungs clear to auscultation. No wheezing, rhonchi, rales.. Heart: RRR without murmur, gallop, or rubs. No ectopy. Health Maintenance List Hepatitis C Screening due on 08/25/2024 HIV Screening due on 08/25/2024 Influenza Vaccine(Season Ended) due on 01/12/2024 Annual PCP Team Chronic Disease Visit due on 09/22/2024 Cervical Cancer Screening due on 08/11/2025 DTaP,Tdap,Td Vaccine(2 - Td or Tdap) due on 05/13/2031 Behavioral Health Screening Completed Covid-19 Vaccine Completed HPV Vaccine Aged Out Hepatitis B Vaccine Discontinued ASSESSMENT/PLAN: 1. Dizziness - ICD9: 780.4, ICD10: R42 (primary diagnosis) - ECHO - PERFLUTREN LIPID MICROSPHERES 1.1 MG/ML INJECTION IN NS 10 ML - SODIUM CHLORIDE 0.9 % (FLUSH) INJECTION SYRINGE - OUTSIDE VENDOR CARDIAC OUTPATIENT EXTENDED RHYTHM RECORDING (WITHOUT TELEMETRY) - TILT TABLE EVALUATION 2. Fatigue, unspecified type - ICD9: 780.79, ICD10: R53.83 - ECHO - PERFLUTREN LIPID MICROSPHERES 1.1 MG/ML INJECTION IN NS 10 ML - SODIUM CHLORIDE 0.9 % (FLUSH) INJECTION SYRINGE - OUTSIDE VENDOR CARDIAC OUTPATIENT EXTENDED RHYTHM RECORDING (WITHOUT TELEMETRY) 3. Tachycardia - ICD9: 785.0, ICD10: R00.0 - TILT TABLE EVALUATION Javier Riojas APRN.SOLUTIONS EXECUTIVE SECURITY documented in this encounter [facility] 10-14-2023 Telephone encounter Note TC no answer. Left VM to return call. CICI Magana [facility] 10-14-2023 Miscellaneous Notes TC no answer. Left VM to return call. CICI Magana Pt reports she does not have a teenage program director and would like a referral to one. Call pt back once referral has been placed. Janae Esteban LPN TC no answer. Left VM to return call. CICI Magana Please let patient know US shows 2 cysts on her scalp. If patient would like to see dermatology I can place a referral. documented in this encounter [facility] 10-14-2023 Telephone encounter Note Pt reports she does not have a teenage program director and would like a referral to one. Call pt back once referral has been placed. Janae Esteban LPN [facility] 10-14-2023 Telephone encounter Note TC no answer. Left VM to return call. CICI Magana [facility] 10-14-2023 Telephone encounter Note Please let patient know US shows 2 cysts on her scalp. If patient would like to see dermatology I can place a referral. [facility] 09-27-2023 Telephone encounter Note Pt called and is notified of providers results and instructions. Pt voices understanding. Transferred to scheduled to set up appt with Rheumatology. Mildred Oro RN [facility] 09-27-2023 Miscellaneous Notes Pt called and is notified of providers results and instructions. Pt voices understanding. Transferred to scheduled to set up appt with Rheumatology. Mildred Oro RN Please let patient know her lupus panel is indeterminate. I recommend follow up with rheumatology. documented in this encounter [facility] 09-27-2023 Telephone encounter Note Please let patient know her lupus panel is indeterminate. I recommend follow up with rheumatology. [facility] 09-23-2023 History of Present illness Narrative Chief Complaint Patient presents with: Follow Up: Medication follow up HPI Sherin Sandoval is a 28 year old female who presents here today for Above Complaints.. Patient presents for medication follow up. Patient was seen 08/26/2023 and was continued on prozac 20mg and buspar increased from 5mg to 10mg. Patient is also on hydroxyzine prn. Patient reports anytime she exerts herself and pushes herself in physical activity she becomes physically ill with fevers, body aches and chills. Past medical history, appointments, medications, allergies reviewed. Previous Medical History PAST MEDICAL HISTORY Diagnosis Date 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 attack Hypothyroidism Iron deficiency anemia Kidney stones Previous Surgical History PAST SURGICAL HISTORY Procedure Laterality Date CATH/STENT RENAL DRAINAGE EXTRACTION ERUPTED TOOTH/EXR LITHOTRIPSY XTRCORP SHOCK WAVE REMOVAL OF HEEL SPUR Family History FAMILY HISTORY Problem Relation Age of Onset Breast Cancer Mother other (throat cancer) Father Diabetes Brother Dementia Maternal Grandfather Patient Allergies ALLERGIES No Known Allergies Current Medications Current Outpatient Medications on File Prior to Visit Medication Sig busPIRone (BUSPAR) 10 mg tablet TAKE 1 TABLET BY MOUTH THREE TIMES A DAY FLUoxetine (PROZAC) 20 mg capsule Take 1 capsule by mouth once daily. levothyroxine (SYNTHROID) 50 mcg tablet Take 1 tablet by mouth once daily. hydrOXYzine HCl (ATARAX) 10 mg tablet Take 1 tablet by mouth two times a day as needed. No current facility-administered medications on file prior to visit. Social History Social History Tobacco Use Smoking status: Never Smokeless tobacco: Never Vaping Use Vaping Use: Never used Substance Use Topics Alcohol use: Not Currently Drug use: Never Review of Symptoms REVIEW OF SYSTEMS SEE HPI EXAM: BP 134/86 Pulse 92 Resp 14 Wt (!) 137.4 kg (303 lb) General Appearance: Well appearing, alert, in no acute distress, well-hydrated, well nourished.. Lungs: Lungs clear to auscultation. No wheezing, rhonchi, rales.. Heart: RRR without murmur, gallop, or rubs. No ectopy. Health Maintenance List Hepatitis C Screening due on 08/25/2024 HIV Screening due on 08/25/2024 Influenza Vaccine(Season Ended) due on 01/12/2024 Annual PCP Team Chronic Disease Visit due on 08/25/2024 Pap Testing due on 08/11/2025 DTaP,Tdap,Td Vaccine(2 - Td or Tdap) due on 05/13/2031 Behavioral Health Screening Completed Covid-19 Vaccine Completed HPV Vaccine Aged Out Hepatitis B Vaccine Discontinued ASSESSMENT/PLAN: 1. Fatigue, unspecified type - ICD9: 780.79, ICD10: R53.83 (primary diagnosis) - SHIRA BLOOD - SEDIMENTATION RATE, WESTERGREN - C-REACTIVE PROTEIN - RHEUMATOID FACTOR - LUPUS ANTICOAG PL 2. CHARLINE (generalized anxiety disorder) - ICD9: 300.02, ICD10: F41.1 - BUSPIRONE 15 MG TABLET 3. Lump of scalp - ICD9: 784.2, ICD10: R22.0 - US HEAD/NECK SOFT TISSUE OTHER Javier Riojas APRN.JIM documented in this encounter [facility] 08-27-2023 Miscellaneous Notes Pt notified and verbalized understanding Inna Dotson MA Please let patient know her labs are normal. Iron is within normal range and she does not need any iron infusions at this time. documented in this encounter [facility] 08-26-2023 History of Present illness Narrative Chief Complaint Patient presents with: [facility] HPI Sherin Sandoval is a 28 year old female who presents here today for Above Complaints.. Patient presents to [facility]. Patient prior PCP left and patient moved to [place]. Patient has VALERIE and last iron infusion was 11/20/2021. Past medical history, appointments, medications, allergies reviewed. Previous Medical History PAST MEDICAL HISTORY Diagnosis Date 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 attack Hypothyroidism Iron deficiency anemia Kidney stones Previous Surgical History PAST SURGICAL HISTORY Procedure Laterality Date CATH/STENT RENAL DRAINAGE EXTRACTION ERUPTED TOOTH/EXR LITHOTRIPSY XTRCORP SHOCK WAVE REMOVAL OF HEEL SPUR Family History FAMILY HISTORY Problem Relation Age of Onset Breast Cancer Mother other (throat cancer) Father Diabetes Brother Dementia Maternal Grandfather Patient Allergies ALLERGIES No Known Allergies Current Medications No current outpatient medications on file prior to visit. No current facility-administered medications on file prior to visit. Social History Social History Tobacco Use Smoking status: Never Smokeless tobacco: Never Review of Symptoms REVIEW OF SYSTEMS GENERAL: No weight loss, malaise or fevers HEENT: No changes in hearing or vision, no nose bleeds or other nasal problems NECK: Positive for swelling RESPIRATORY: Cough; dry, Shortness of breath CARDIOVASCULAR: palpitations GI: Positive for nausea : No history of dysuria, frequency or incontinence HAND BOOKED FOLDER AND STITCHER: Positive for abnormal vaginal bleeding heavy and abnormal MUSCULOSKELETAL: Negative for joint pain or swelling, back pain or muscle pain SKIN: Negative for lesions, rash, and itching PSYCH: Positive for anxiety: has been off medication for 3 months HEMATOLOGY/LYMPHOLOGY: Negative for prolonged bleeding, bruising easily or swollen nodes ENDOCRINE: Negative for cold or heat intolerance, polyuria, polydipsia and goiter NEURO: Migraine headaches EXAM: BP 132/86 Pulse 116 Resp 16 Wt (!) 140.2 kg (309 lb) General Appearance: Well appearing, alert, in no acute distress, well-hydrated, well nourished.. Skin: Skin color, texture, turgor normal, no suspicious rashes or lesions. Neck: Supple, no adenopathy; thyroid symmetric, normal size, no bruits. Lungs: Lungs clear to auscultation. No wheezing, rhonchi, rales.. Heart: RRR without murmur, gallop, or rubs. No ectopy. Abdomen: Normal abdominal exam, Abdomen soft, non-tender. Bowel sounds normal. No masses, organomegaly Musculoskeletal: No joint swelling, deformity, or tenderness. Peripheral Pulses: Normal. Neurologic: Gait normal. Reflexes normal and symmetric. Sensation grossly intact.. Health Maintenance List Hepatitis C Screening Never done HIV Screening Never done DTaP,Tdap,Td Vaccine(1 - Tdap) Never done Hepatitis B Vaccine(1 of 3 - 19+ 3-dose series) Never done Pap Testing Never done Covid-19 Vaccine(2 - season) due on 01/11/2023 Behavioral Health Screening Never done Influenza Vaccine(Season Ended) due on 01/12/2024 HPV Vaccine Aged Out ASSESSMENT/PLAN: 1. Encounter for immunization - ICD9: V03.89, ICD10: Z23 (primary diagnosis) - [employer] COVID-19 VACCINE ( SEASON) AGE 12+ YR 2. Encounter for annual routine gynecological examination - ICD9: V72.31, ICD10: Z01.419 - refer to gynecology - CONSULT TO GYNECOLOGY 3. CHARLINE (generalized anxiety disorder) - ICD9: 300.02, ICD10: F41.1 - FLUOXETINE 20 MG CAPSULE - BUSPIRONE 10 MG TABLET - HYDROXYZINE HCL 10 MG TABLET 4. Hypothyroidism, acquired - ICD9: 244.9, ICD10: E03.9 - Instructed patient on importance of taking on an empty stomach either first thing in the morning or at bedtime. - check TSH, free T4, and T3 today - LEVOTHYROXINE 50 MCG TABLET - THYROID STIMULATING HORMONE - T4 FREE/FREE THYROXINE - T3 5. Abnormal menstrual periods - ICD9: 626.2, ICD10: N92.6 - COMPLETE BLOOD COUNT AND DIFFERENTIAL - CONSULT TO FLASK MAKER 6. Encounter for lipid screening for cardiovascular disease - ICD9: V77.91, V81.2, ICD10: Z13.220, Z13.6 - LIPID PANEL, NONFASTING 7. Screening for diabetes mellitus - ICD9: V77.1, ICD10: Z13.1 - HEMOGLOBIN A1C 8. Medication management - ICD9: V58.69, ICD10: Z79.899 - COMPREHENSIVE METABOLIC PANEL 9. Iron deficiency anemia, unspecified iron deficiency anemia type - ICD9: 280.9, ICD10: D50.9 - IRON AND TIBC - FERRITIN Javier Riojas APRN.[employer] documented in this encounter [facility] 07-03-2023 History of Present illness Narrative Pateint triaged at [facility]. Here today with worsening dizziness over past 2 weeks. Patient reports hx of anemia, managed by outside provider. I recommended patient contact outside provider to see if can be managed. If unable to see pcp I advise patient to go to ER. Patient has appointment with [facility] provider to establish in 2 months, will need to work with current provider until first [facility] appointment. Patient in no apparent distress at time of triage documented in this encounter [facility] 02-12-2022 History of Present illness Narrative Sherin is a 26 yo female here today for follow up, she has been getting her iron infusions.Established with hematology on 02/12/2022; note reviewed, had Venofer infusion X 5.Lab today shows Hemoglobin at 11.1, reviewed labs with patient.Anxiety is stable, continues to take fluoxetineShe is still having breakthrough anxiety attacks. she states she recently moved to [place] and the change has caused her increase in anxiety she is taking her Buspar and Fluoxitine as prescribed and states normally she is doing well.No acute or new health concerns today [facility] Work Phone: 02-12-2022 Note Clinic Note: Education Assessment: Learning BarriersNo barriers TaughtPatient Primary Language of PatientEnglish Clinic Visit: Topic(s): Clinic VisitFollow-up plan MethodVerbal, Teach-Back, Handout Nursing Note: Nursing Notept going to lab today after visit. rtc for f/u with JIM on 02/26 at 830 Electronic Signatures: Jocelyn Viramontes (MIHIR) (Signed 12-Feb-2022 08:57) Authored: Education Assessment, Clinic Visit, Nursing Note Last Updated: 12-Feb-2022 08:57 by Jocelyn Viramontes (MIHIR) [facility] 11-20-2021 History of Present illness Narrative Sherin is a 26 yo female here to follow up on ER visit, anemia, and HTN. She was sent by me to Er yesterday due to HGB at 7.0, to receive blood transfusion. She received 1 unit PRBC's in ER and was released.She reports uterine bleeding continue, she reports blood flow is now at a normal period flow, using 1 pad every 3-4 hours. She reports no days without vaginal bleeding.She is taking Sprintec as prescribed.Home blood pressure reading rand 110-145.Follow up with DR Webb on 12/11/21 [facility] Work Phone: 11-10-2021 History of Present illness Narrative Sherin is a 26 yo female, here today with complaints of weakness, not feeling well. Sherin has anemia, iron deficiency associated with uterine bleeding, she has i unit PRBC transfusion in November, she is following with Dr Webb HAND BOOKED FOLDER AND STITCHER who has her onL[facility] was 2 weeks ago, is only having bleeding with placebo pill, continues on oral contraceptive.Patient reports she has had low iron most of her life, she remembers in high school she was unable to give blood due to low blood counts.has had iron infusion in the past prior to 2019She is having increase in SOB, specifically when going up stairs, she does reports some episodes of dizziness.She is compliant with Iron supplement twice daily [facility] Work Phone: 10-05-2021 History of Present illness Narrative Sherin is a 26 yo female here today for follow up. Last appointment was shortened due to emergent care needed for acute kidney stone. Patient would like to discuss her Prozac dosage and starting control.She reports she has been bleeding everyday for over 1 year. She reports the amount changes, however, heavy bleeding with clots over last 3-4 days. She states most days she has to wear tampon and 2 pads with breakthrough bleeding.She has had iron infusion in the past. Has not seen or established with HAND BOOKED FOLDER AND STITCHER.On 08/31/21 in ER her hemoglobin was at 8.7, does not appear it was addressed. Patient states no one told me or did anything She states she does take iron supplement twice a day.She would like to start back on prozac, she has had increase in depression, she states mostly due to health and constant bleeding. Denies any SI or HI. [facility] Work Phone: 10-03-2021 History of Present illness Narrative bleeding everyday, amount changes,heavy bleeding with clots over last 3-4 days.tampon, 2 pads. Bleed through [facility] Work Phone: 09-06-2021 Note PROCEDURE DETAILS Preoperative Diagnosis: Calculus of left kidney, N20.0 null, null Postoperative Diagnosis: Calculus of left kidney, N20.0 null, null Surgeon: Mayo Oropeza Resident/Fellow/Other Solar Resource Assessor: None of these were associated with this case Procedure: 1. L ESWL, CYSTO L PRG L URETEROSCOPY 2. null Anesthesia: Yosvany Guzmán Estimated Blood Loss: 0 Findings: See Op note Specimens(s) Collected: no, Operative Report: Preoperative diagnosis: Left Kidney stone Postoperative diagnosis: Same Procedure: cystoscopy with Left RPG and ureteroscopy, left ESWL Physician: Mayo Oropeza Anesthesia: Gen. Estimated blood loss: None Indications and consent: The patient presents for treatment of a left kidney stone. After the risks, benefits, alternatives, and indications of the procedure were explained to the patient they consented. Patient presents for Tx of known stone... After the risks, benefits, alternatives, and indications for the procedure were explained to the patient, consented. Procedure: The patient was brought to the operating room and placed on the table in the supine position. After adequate anesthesia was obtained, the patient was prepped and draped in the standard surgical fashion. First, the cystoscope was inserted into the bladder. Formal cystoscopy was performed. A Left retrograde pyelogram was performed which suggested no filling defect in the ureter, but has the known stone in the kidney. We then performed ureteroscopy which did not reveal any stone in the ureter. This was done under fluoroscopic vision. The patient was brought to the operating room and placed on the table in supine position. After adequate anesthesia was obtained, fluoroscopy was used to visualize the stone in the kidney . A total of 2500 shocks were delivered. The patient tolerated the procedure well. There were no complications. Attestation: Note Completion: Attending AttestationI performed the procedure without a resident Electronic Signatures: Mayo Oropeza) (Signed 06-Sep-2021 13:23) Authored: Post-Operative Note, Chart Review, Note Completion Last Updated: 06-Sep-2021 13:23 by Mayo Oropeza) [facility] 09-01-2021 Note History & Physical R eviewed: /Lactating: Are You no Are You Currently Breastfeedingno I have reviewed the History and Physical dated: 31-Aug-2021 History and Physical reviewed and relevant findings noted. Patient examined to review pertinent physical findings.: No significant changes Home Medications Reviewed: no changes noted Allergies Reviewed: no changes noted ERAS (Enhanced Recovery After Surgery): ERAS Patient: no Consent: COVID-19 Consent: COVID-19 Risk ConsentSurgeon has reviewed lehman risks related to the risk of forest COVID-19 and if they contract COVID-19 what the risks are. Electronic Signatures: Mayo Oropeza) (Signed 01-Sep-2021 08:15) Authored: History & Physical Reviewed, ERAS, Consent, Note Completion Last Updated: 01-Sep-2021 08:15 by Mayo Oropeza) [facility] 08-30-2021 Note Send Summary: Discharge Summary Providers: Provider RoleProvider Name AttendingArun Braun ConsultingMayo Oropeza Nurse PractitionerHarInocencia alvares PrimaryRequired, No Pcp Donavan Whitney Note Recipients: Required, No Pcp, Mayo Mei MD Discharge: Summary: Admission Date: .30-Aug-2021 06:54:00 Discharge Date: 31-Aug-2021 Attending Physician at Discharge: Arun Braun Admission Reason: severe left flank pain(1) Final Discharge Diagnoses: calculus of the left kidney, , left flank pain, failure outpatient treatment, UTI, Yeast Procedures: none Condition at Discharge: Satisfactory Disposition at Discharge: .Home Vital Signs: T PRBPMAPSpO2 [id number]% Date/Time08/30 11: 11: 11: 11: 11: 11:39 Range(36.1C - 36.7C ) (60 - 101 ) (14 - 18 ) (114 - 158 )/ (65 - 119 ) (87 - 87 ) (97% - 100% ) Date: Weight/Scale Type:Height: 30-Aug-2021 11:17555 kg / ais033.5 cm Physical Exam: Constitutional: Well developed, awake/alert/oriented x3, no distress, alert and cooperative Eyes: PERRL, EOMI, clear sclera ENMT: mucous membranes moist, no apparent injury, no lesions seen Head/Neck: Neck supple, no apparent injury, thyroid without mass or tenderness, No JVD, trachea midline, no bruits Respiratory/Thorax: Patent airways, CTAB, normal breath sounds with good chest expansion, thorax symmetric Cardiovascular: Regular, rate and rhythm, no murmurs, 2+ equal pulses of the extremities, normal S 1and S 2 Gastrointestinal: Nondistended, soft, non-tender, no rebound tenderness or guarding, no masses palpable, no organomegaly, +BS, no bruits Extremities: normal extremities, no cyanosis edema, contusions or wounds, no clubbing Neurological: alert and oriented x3, intact senses, motor, response and reflexes, normal strength Psychological: Appropriate mood and behavior Skin: Warm and dry, no lesions, no rashes Hospital Course: HPI: SHERIN SANDOVAL is a 26 year old Female presents to [facility] ER from home with chief complaint of severe left flank pain. Patient was admitted and had a ureteral stent placed and discharged from the hospital on Saturday. Patient returned yesterday with the same complaints. Patient was treated yesterday and discharged. Patient states that the pain has been severe and medication she was prescribed lasts 30 minutes and wears off. Patient indicates a left stabbing constant pain that radiates around to the front pubic area. Denies any urinary issues. Her urologist Dr. Chopra was contacted through the ED, who indicated she could be admitted for pain management and have the stent removed tomorrow in his office after discharge. Dr. Chopra had his 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 see patient and recommended Ditropan and pyridium. Will admit for pain management and urinary tract infection. Past medical history: Iron deficiency anemia, anxiety, panic attacks, dental caries, thyroid nodule, situational anxiety, kidney stones Past surgical history: tonsillectomy Social history: non smoker Family history: Non contributory to admission Hospital course: Patient was treated with IV Dilaudid and IV fluids. Pain seemed well controlled. Urology 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 seen patient on Dr. Chopra' behalf. Wants to see patient in his office tomorrow on discharge. She was treated with IV Rocephin and fluconazole. Will be prescribed Bactrim for 5 days and fluconazole for 3 days, received 1 dose in patient, as has urinary tract infection with budding yeast. HCG serum negative August 25. Discharge Information: and Continuing Care: Lab Results - Pending: Culture, Urine Drawn at 30-Aug-2021 09:09:00 Radiology Results - Pending: None Discharge Instructions: Nutrition/Diet: regular Additional Orders: Additional Instructions: Follow up with PCP within 1 week of discharge Follow up with Dr. Chopra and Saturday Resume home medications Resume home pain medications-follow up Urology today if wants changed Bactrim for 5 days-follow up with Urology today if wants changed Fluconazole x 2 days-follow up with Urology today if wants changed Follow Up Appointments: Follow-Up Appointment 01: Physician/Dept/Service: PCP Reason for Referral: follow up post discharge Call to Schedule in: 1 week Follow-Up Appointment 02: Physician/Dept/Service: Dr. Chopra Reason for Referral: Urology Call to Schedule in: today in his office at 9:30 Discharge Medications: Home Medication ondansetron 4 mg oral tablet, disintegrating - 1 tab(s) orally 3 times a day Cipro 500 mg oral tablet - 1 tab(s) orally every 12 hours oxycodone-acetaminophen 5 mg-325 mg oral tablet - 1 tab(s) orally every 8 hours Bactrim DS 800 mg-160 mg oral tablet - 1 tab(s) orally 2 times a day fluconazole 200 mg oral tablet - 1 tab(s) orally once a day PRN Medication traMADol 50 mg oral tablet - 1 tab(s) oral (more content not included)... [facility] 08-30-2021 Note History of Present I llness: /Lactating: Are You no (1) Are You Currently Breastfeedingno (1) Admission Reason: severe left flank pain HPI: SHERIN SANDOVAL is a 26 year old Female presents to [facility] ER from home with chief complaint of severe left flank pain. Patient was admitted and had a ureteral stent placed and discharged from the hospital on Saturday. Patient returned yesterday with the same complaints. Patient was treated yesterday and discharged. Patient states that the pain has been severe and medication she was prescribed lasts 30 minutes and wears off. Patient indicates a left stabbing constant pain that radiates around to the front pubic area. Denies any urinary issues. Her urologist Dr. Chopra was contacted through the ED, who indicated she could be admitted for pain management and have the stent removed tomorrow in his office after discharge. Dr. Chopra had his 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 see patient and recommended Ditropan and pyridium. Will admit for pain management and urinary tract infection. Past medical history: Iron deficiency anemia, anxiety, panic attacks, dental caries, thyroid nodule, situational anxiety, kidney stones Past surgical history: tonsillectomy Social history: non smoker Family history: Non contributory to admission Comorbidities: Comorbidites: Comorbid Conditionson h and p Social History: Social History: Smoking Statusnever smoker (2) Alcohol Usedenies(2) Drug Usedenies (2) Allergies: No Known Allergies: Medications Prior to Admission: Admission Medication Reconciliation has not been completed for this patient. Review of Systems: Constitutional: POSITIVE: Chills; NEGATIVE: Fever, Anorexia, Weight Loss, Malaise Eyes: NEGATIVE: Vision Loss/ Change ENMT: NEGATIVE: Nasal Congestion, Ear Pain, Mouth Pain, Throat Pain Respiratory: NEGATIVE: Dry Cough, Productive Cough, Hemoptysis, Wheezing, Shortness of Breath Cardiac: NEGATIVE: Chest Pain, Dyspnea on Exertion, Orthopnea, Palpitations, Syncope Gastrointestinal: POSITIVE: Nausea, Abdominal Pain; NEGATIVE: Vomiting, Diarrhea, Constipation Genitourinary: NEGATIVE: Dysuria, Flank Pain, Frequency, Hematuria Musculoskeletal: NEGATIVE: Decreased ROM, Pain, Swelling, Stiffness, Weakness Neurological: NEGATIVE: Dizziness, Confusion, Headache Psychiatric: NEGATIVE: Anxiety Skin: NEGATIVE: Pain, Pruritus, Rash Endocrine: NEGATIVE: Heat Intolerance, Cold Intolerance, Sweat Hematologic/Lymph: NEGATIVE: Anemia, Bruising Allergic/Immunologic: NEGATIVE: Itching Objective: Objective Information: T PRBPMAPSpO2 [id number]% Date/Time08/30 7:204 10: 10: 10: 10:05 Range(36.7C - 36.7C ) (68 - 101 ) (14 - 18 ) (141 - 158 )/ (80 - 119 ) (98% - 100% ) Pain reported at 08/30 10:40: 5 = Moderate Physical Exam by System: Constitutional: Well developed, awake/alert/oriented x3, no distress, alert and cooperative Eyes: PERRL, EOMI, clear sclera ENMT: mucous membranes moist, no apparent injury, no lesions seen Head/Neck: Neck supple, no apparent injury, thyroid without mass or tenderness, No JVD, trachea midline, no bruits Respiratory/Thorax: Patent airways, CTAB, normal breath sounds with good chest expansion, thorax symmetric Cardiovascular: Regular, rate and rhythm, no murmurs, 2+ equal pulses of the extremities, normal S 1and S 2 Gastrointestinal: Nondistended, soft, non-tender, no rebound tenderness or guarding, no masses palpable, no organomegaly, +BS, no bruits Extremities: normal extremities, no cyanosis edema, contusions or wounds, no clubbing Neurological: alert and oriented x3, intact senses, motor, response and reflexes, normal strength Psychological: Appropriate mood and behavior Skin: Warm and dry, no lesions, no rashes Medications: Medications: Continuous Medications 1. Sodium Chloride 0.9% Infusion: 1000 mL IntraVenous Scheduled Medications 1. cefTRIAXone 1 gram/ Dextrose 5% IVPB Premixed Soln 50 mL: 50 mL IntraVenous Piggyback Every 24 Hours 2. Fluconazole: 200 mg Oral Every 24 Hours 3. Oxybutynin: 5 mg Oral 2 Times a Day 4. Phenazopyridine: 100 mg Oral 3 Times a Day After Meals PRN Medications 1. Acetaminophen: 650 mg Oral Every 4 Hours 2. Acetaminophen: 650 mg Oral Every 4 Hours 3. Docusate: 100 mg Oral 2 Times a Day 4. HYDROmorphone Injectable: 0.2 mg IntraVenous Push Every 4 Hours 5. HYDROmorphone Injectable: 0.5 mg IntraVenous Push Every 4 Hours 6. Ondansetron Injectable: 4 mg IntraVenous Push Every 4 Hours 7. Sodium Chloride 0.9% Injectable Flush: 10 mL IntraVenous Flush Every 8 Hours and as Needed Recent Lab Results: Results: I have reviewed these laboratory results: Urinalysis with Culture if Ind (more content not included)... [facility] 08-27-2021 Note Send Summary: Discharge Summary Providers: Provider RoleProvider Name ReferringNichole PrestoncristinoGilbert beckwithAlan Stroud ConsultingGilbert Oropezay PrimaryRequired, No Pcp Discharge: Summary: Admission Date: .25-Aug-2021 00:03:00 Discharge Date: 27-Aug-2021 Attending Physician at Discharge: Alan Draper Admission Reason: Flank pain Final Discharge Diagnoses: Left-sided ureteral stone, left-sided obstructive uropathy Procedures: Date: 25-Aug-2021 11:51:00 Procedure Name: 1. CYSTO L RPG L URETER W/CLAYTON L STENT Condition at Discharge: Satisfactory Disposition at Discharge: .Home Vital Signs: T PRBPMAPSpO2 [id number]% Date/Time08/27 7: 7: 7: 7: 7: 7:18 Range(36C - 36.6C ) (72 - 100 ) (18 - 20 ) (107 - 148 )/ (68 - 92 ) (100 - 111 ) (96% - 100% ) Date: Weight/Scale Type:Height: 25-Aug-2021 08:01007.3 kg / ury211.5 cm Physical Exam: Constitutional: Awake and alert; oriented x3; no apparent distress or respiratory distress Head/Neck: Neck supple with no palpable lymphadenopathy, bruits or masses; trachea midline with increased neck circumference Respiratory/Thorax: Clear to auscultation bilaterally; no wheezes or rhonchi noted Cardiovascular: Regular rate and rhythm; normal S1-S2 with no murmur; no pitting edema and 2+ pulses bilaterally Gastrointestinal: Soft, nontender, nondistended, positive bowel sounds; obese Neurological: Nonfocal; cranial nerves II through XII appear intact Hospital Course: 26-year-old female with a past medical history of Morbid obesity, kidney stones, iron deficiency anemia, hypertension, multinodular goiter, anxiety, panic attacks, who presented to the ER with left-sided flank pain, fever and chills.On presentation, blood pressure 145/112, heart rate 89, respiratory rate 20, afebrile, saturation O2 98% on room air. Pertinent findings on blood work-up, hemoglobin 10.1, and lactic acid 2.8. Urinalysis came back positive for blood and yeast. CT scan of the abdomen and pelvis showed left-sided hydronephrosis with 5 mm calculus in the proximal left ureter. Patient was given in the emergency room 1 g IV ceftriaxone, 50 mg IV Toradol, 2 mg IV morphine followed by another 2 mg, and IV Zofran and IV fluids and then admitted to the medical service for further investigation management. She was found to have left-sided hydronephrosis with a renal calculus and obstructive uropathy with a possible fungal UTI, she was provided pain control and supportive care, started on fluconazole, urology was consulted and she underwent cystoscopy left-sided stent insertion. Postop she was doing fine, her hemoglobin remained stable over the past 24 hours, her kidney function was normal, lactic acidosis resolved and pain improved. She was discharged home. She was discharged on fluconazole for 4 more days to complete the course. She was also given 10 pills of tramadol for pain control since she was still complaining of pain. She will be following up with primary care and urology. Discharge Information: and Continuing Care: Lab Results - Pending: None Radiology Results - Pending: None Discharge Instructions: Activity: activity as tolerated. May shower.. May return to school/work. Nutrition/Diet: resume normal diet Additional Orders: Additional Instructions: return to er if pain worsens Follow Up Appointments: Follow-Up Appointment 01: Physician/Dept/Service: PMD Call to Schedule in: 1 week Follow-Up Appointment 02: Physician/Dept/Service: Dr Nichole Chopra Call to Schedule in: 2 weeks Location: [address] [place] [address] [place] [address] Discharge Medications: Home Medication NuvaRing 0.120 mg-0.015 mg/24 hours vaginal ring - 1 each vaginal every 4 weeks as directed fluconazole 200 mg oral tablet - 1 tab(s) orally every 24 hours PRN Medication traMADol 50 mg oral tablet - 1 tab(s) orally every 6 hours, As needed, Pain - Mod (4-6) DNR Status: Code StatusCode Status order at time of discharge: Full Code Electronic Signatures: Alan Draper) (Signed 17-Apr-2022 19:33) Authored: Send Summary, Summary Content, Ongoing Care, DNR Status, Note Completion Last Updated: 27-Aug-2021 19:33 by Alan Draper) [facility] 08-25-2021 History of Present illness Narrative left renal stone. Pt was seen in ED for left flank pain. mild nausea. She did have a left ureteroscopy w/ stent 08/25/21. she has been seen in ED 2x since discharge with C/O pain. she is scheduled for left ESWL 09/01/21. increased urgency and frequency. some gross hematuria. dysuria. she states she does have hx of kidney stones. Patient reports severe pain 10/10, pressure-like in nature, radiating from the left flank area to the left abdominal area upper and lower quadrant, no fever no chills but patient has severe nausea. She reported that this pain was intermittent, did not subside [id number] medication, it prompted her to proceed to the emergency department 2 times where she had to CT scan revealing good position of the stent no evidence of ureteral stone.We discussed the option of management including ESWL and removal of stent next week versus removing her stent today proceed with ESWL tomorrow. Discussed risk, benefit, potential complication, adverse events of each. Patient wants to proceed and remove her left double-J stent today. I explained to her that there is always a risk that the stone was not visible on CT scan and might still be blocking her kidney and creating flank pain. She understands the risk and wants to proceed still with stent removal. [facility] Work Phone: 08-25-2021 History of Present illness Narrative Sherin is a 26 yo female here today for hospital follow up she has been in/out of ER/hospital since 08/25/2021. She has been treated in ER on 4 occasions and admitted twice, all incidence with left flank pain. CT scan on 08/30/21 shows mild hydronephrosis with 4.8 mm stone to left kidney.Patient in room out of chair on floor on knees with emesis bag to face, she is moaning and reports sever pain to left flank area. She is able to answer all question and reports last urination at 0700, has not eaten today, has drank 2-3 12 oz water bottles today, and left flank pain posterior and stabbing 10/10 on pain scale.She had a stent that was placed and then removed, she underwent lithotripsy and has scheduled appt with Dr Varela (uronology) on 09/11/21. [facility] Work Phone: 08-25-2021 Note PROCEDURE DETAILS Preoperative Diagnosis: Left ureteral stone Postoperative Diagnosis: Left ureteral stone Surgeon: Mayo Oropeza Resident/Fellow/Other Solar Resource Assessor: None of these were associated with this case Procedure: 1. CYSTO L RPG L URETER W/CLAYTON L STENT Anesthesia: No anesthesiologist associated with this case Estimated Blood Loss: 0 Findings: See Op note Specimens(s) Collected: no, Operative Report: Preoperative diagnosis: Left ureteral stone Postoperative diagnosis: Same Procedure: cystoscopy with Left RPG and ureteroscopy and Left stent insertion Physician: Mayo Oropeza Anesthesia: Gen. Estimated blood loss: None Indications and consent: The patient presents for treatment of a left ureteral stone. After the risks, benefits, alternatives, and indications of the procedure were explained to the patient they consented. Procedure: The patient was brought to the operating room and placed on the table in the supine position. After adequate anesthesia was obtained, the patient was prepped and draped in the standard surgical fashion. First, the cystoscope was inserted into the bladder. Formal cystoscopy was performed. A Left retrograde pyelogram was performed which suggested a filling defect in the ureter We then performed ureteroscopy however the ureteroscope was unable to reach the stone. The stone was pushed proximally using the 5 Swedish open-ended catheter which allowed us to place the guidewire past the stone into the renal pelvis. A 5 x 26 stent was placed over the existing guidewire. This was done under fluoroscopic vision. Proper positioning was confirmed. The patient tolerated the procedure well and there no complications. Pt will have a UB and follow up with me in clinic in 2 weeks. Attestation: Note Completion: Attending AttestationI performed the procedure without a resident Electronic Signatures: Mayo Oropeza) (Signed 25-Aug-2021 11:53) Authored: Post-Operative Note, Chart Review, Note Completion Last Updated: 25-Aug-2021 11:53 by Mayo Oropeza) [facility] 08-25-2021 Note History of Present I llness: /Lactating: Are You no (1) Are You Currently Breastfeedingno (1) HPI: SHERIN SANDOVAL is a 26 year old Female Who presented to the emergency room for left-sided flank pain, subjective fever and chills. Associated with nausea. Pain was 9/10, constant, present for couple of days prior to presentation, pressure like in nature, radiating to left lower quadrant. On presentation, blood pressure 145/112, heart rate 89, respiratory rate 20, afebrile, saturation O2 98% on room air. Pertinent findings on blood work-up, hemoglobin 10.1, and lactic acid 2.8. UA is positive for blood and yeast. CT scan of the abdomen and pelvis showed left-sided hydronephrosis with 5 mm calculus in the proximal left ureter and 2 othe small non-obstructive stones in left kidney. Patient was given in the emergency room 1 g IV ceftriaxone, 50 mg IV Toradol, 2 mg IV morphine followed by another 2 mg, and IV Zofran and IV fluids and then admitted to the medical service for further investigation management. We had a long and extensive discussion with the patient regarding her condition. I explained to her the pathophysiology, differential diagnosis, incidence, risk factor, management of proximal obstructive ureteral stones. Discussed with her that she has multiple option of management the first including observation which I discouraged given the subjective fever and the severe pain. We discussed left ESWL and left ureteroscopy with laser stone fragmentation. I explained to her the risk, benefit, potential complication, adverse event of each management modality. Patient verbalized understanding. Patient verbalized understanding and want to proceed with a left stent and left ESWL. We discussed stent pain and discomfort might be present. Review of Systems: 10 systems were reviewed and were negative except for those noted in the history of present illness. Past medical history: Morbid obesity, kidney stones, iron deficiency anemia, hypertension, multinodular goiter, anxiety, panic attacks, Past surgical history: Lacey tooth extraction Social history: Nonsmoker, no alcohol abuse Family history: Has been reviewed and there are no findings pertinent to the chief complaint Allergies: No Known Allergies: Medications Prior to Admission: No Home Meds have been entered for reconciliation yet. Objective: Objective Information: T PRBPMAPSpO2 [id number]% Date/Time08/25 6: 6: 6: 6: 6:04 Range(36C - 36.6C ) (76 - 104 ) (20 - 20 ) (129 - 155 )/ (87 - 112 ) (98% - 100% ) Pain reported at 08/25 7:30: 8 = Severe Physical Exam by System: Constitutional: awake/alert/oriented x3, not in acute distress,obese Eyes: PERRL, EOMI, clear sclera ENMT: normal hearing, mucous membranes moist, no pharyngeal erythema or exudates Head/Neck: neck supple, no apparent injury, no JVD, no lymphadenopathy, trachea midline Respiratory/Thorax: patent airways, clear to auscultation bilaterally, no crackles or wheezing or rhonchi Cardiovascular: Regular, rate and rhythm, no murmurs, 2+ equal pulses of the extremities Gastrointestinal: nondistended, positive bowel sounds, soft, non-tender, no rebound tenderness or guarding, no masses palpable, no organomegaly Genitourinary: left flank tenderness Extremities: no edema Neurological: intact senses, motor, response and reflexes, normal strength, babinski negative Psychological: Appropriate mood and behavior Skin: warm, no rashes Recent Lab Results: Results: CBC: 08/25/2021 00:24 \ Hgb / \ 10.1 L / WBC Plt 8.4 479 H / Hct \ / 30.2 L \ RBC: 4.34 MCV: 70 L Neutrophil %: 56.3 BMP: 08/25/2021 00:24 NA+ Cl- BUN / 140 108 H 12 / Glucose 74 K+ HCO3- Creat \ 3.7 25 0.67 \ Calcium : 9.0 Anion Gap : 11 Radiology Results: Results: Impression: Mild left hydronephrosis with 5 mm calculus in the proximal left ureter. 4 mm and 2 mm nonobstructive left renal calculi. Hepatic steatosis. CT Abdomen and Pelvis without Contrast [Aug 25 2021 1:58AM] Assessment and Plan: Assessment: 26-year-old morbidly obese female with past medical history of kidney stones, hypertension, iron deficiency anemia, multinodular goiter, anxiety and panic attacks who presented to the emergency room for left-sided flank pain. She was found to have a left sided mild hydronephrosis with a 5 mm calculus in the proximal left ureter. Urinalysis showed yeast. Social History: Social History: Smoking Statusnever smoker (2) Alcohol Usedenies(2) Drug Usedenies (2) Drug 2 Usedenies (2) Allergies: No Known Allergies: Medications Prior to Admission: No Home Meds have been entered for reconciliation yet. Objective: Ob (more content not included)... [facility] 08-25-2021 Note History of Present I llness: HPI: SHERIN SANDVOAL is a 26 year old Female Who presented to the emergency room for left-sided flank pain, fever and chills. Associated with nausea. On presentation, blood pressure 145/112, heart rate 89, respiratory rate 20, afebrile, saturation O2 98% on room air. Pertinent findings on blood work-up, hemoglobin 10.1, and lactic acid 2.8. Urinalysis came back positive for blood and yeast. CT scan of the abdomen and pelvis showed left-sided hydronephrosis with 5 mm calculus in the proximal left ureter. Patient was given in the emergency room 1 g IV ceftriaxone, 50 mg IV Toradol, 2 mg IV morphine followed by another 2 mg, and IV Zofran and IV fluids and then admitted to the medical service for further investigation management. Upon encounter now, patient reports that she is still having pain. She got temporary relief from the drugs in the emergency room. Dates back recently to yesterday in the evening when suddenly she started experiencing severe sharp-like left-sided flank pain radiating to her left groin. Denies having any fever but she did have chills. She also had nausea but no vomiting. Denies having any urinary symptoms like dysuria or hematuria. She does have a history of stones in the past but remote 1. Review of Systems: 10 systems were reviewed and were negative except for those noted in the history of present illness. Past medical history: Morbid obesity, kidney stones, iron deficiency anemia, hypertension, multinodular goiter, anxiety, panic attacks, Past surgical history: Lacey tooth extraction Social history: Nonsmoker, no alcohol abuse Family history: Has been reviewed and there are no findings pertinent to the chief complaint Allergies: No Known Allergies: Medications Prior to Admission: No Home Meds have been entered for reconciliation yet. Objective: Objective Information: T PRBPMAPSpO2 [id number]/[id number]% Date/Time08/25 6: 6: 6: 6: 6:04 Range(36C - 36.6C ) (76 - 104 ) (20 - 20 ) (129 - 155 )/ (87 - 112 ) (98% - 100% ) Pain reported at 08/25 7:30: 8 = Severe Physical Exam by System: Constitutional: awake/alert/oriented x3, not in acute distress,obese Eyes: PERRL, EOMI, clear sclera ENMT: normal hearing, mucous membranes moist, no pharyngeal erythema or exudates Head/Neck: neck supple, no apparent injury, no JVD, no lymphadenopathy, trachea midline Respiratory/Thorax: patent airways, clear to auscultation bilaterally, no crackles or wheezing or rhonchi Cardiovascular: Regular, rate and rhythm, no murmurs, 2+ equal pulses of the extremities Gastrointestinal: nondistended, positive bowel sounds, soft, non-tender, no rebound tenderness or guarding, no masses palpable, no organomegaly Genitourinary: left flank tenderness Extremities: no edema Neurological: intact senses, motor, response and reflexes, normal strength, babinski negative Psychological: Appropriate mood and behavior Skin: warm, no rashes Recent Lab Results: Results: CBC: 08/25/2021 00:24 \ Hgb / \ 10.1 L / WBC Plt 8.4 479 H / Hct \ / 30.2 L \ RBC: 4.34 MCV: 70 L Neutrophil %: 56.3 BMP: 08/25/2021 00:24 NA+ Cl- BUN / 140 108 H 12 / Glucose 74 K+ HCO3- Creat \ 3.7 25 0.67 \ Calcium : 9.0 Anion Gap : 11 Radiology Results: Results: Impression: Mild left hydronephrosis with 5 mm calculus in the proximal left ureter. 4 mm and 2 mm nonobstructive left renal calculi. Hepatic steatosis. CT Abdomen and Pelvis without Contrast [Aug 25 2021 1:58AM] Assessment and Plan: Assessment: 26-year-old morbidly obese female with past medical history of kidney stones, hypertension, iron deficiency anemia, multinodular goiter, anxiety and panic attacks who presented to the emergency room for left-sided flank pain. She was found to have a left sided mild hydronephrosis with a 5 mm calculus in the proximal left ureter. Urinalysis showed yeast. I will admit the patient to the inpatient medical service with vital signs monitoring. Consult urology Give IV fluids normal saline at rate of 100 cc/hour. Toradol 30 mg IV every 6 hours. IV morphine as needed for breakthrough pain. Antiemetics as needed. Give fluconazole 200 mg oral once a day until urine culture final report is back. Because of the hematuria and anemia, I would only give SCDs for the DVT prophylaxis. Patient has a history of anemia but not on iron tabs. I will order anemia panel. Full code (This note was generated with voice recognition software and may contain errors including spelling, grammar, syntax and misrecognition of what was dictated, that are not fully corrected) Electronic Signatures: Arun Braun) (Signed 25-Aug-2021 07:56) Authored: His (more content not included)... [facility] 12-08-2020 History of Present illness Narrative Patient: Sherin Sandoval Date of : 1995 (25 y.o.) PCP: Jeni Mauro CNP ASSESSMENT/PLAN: Sherin Sandoval 25 y.o. 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 Plan: Patient was told she no longer needs to wear her cam walker boot, dispensed a pair of heel cushions, instructed her on stretching and massage of the scar, reappoint in 4 weeks. Patient did not feel physical therapy was necessary Assessment & plan notes cannot be loaded without a specified hospital service. SUBJECTIVE: History Since Last Visit: Patient's 25-year-old female status post excision of Sherry's deformity right heel x6 weeks. Patient relates she is doing well been already getting out of the boot without complaint. Review of Systems: Swelling is improving right heel OBJECTIVE: Physical Examination: Integument-incision is well-healed scar is remodeling on the posterior aspect the right Neuro-intact right Musculoskeletal-5 out of 5 dorsiflexion and plantar flexion strength right ankle, decreased pain and swelling of the posterior aspect the right heel. No pain of the Achilles tendon appears to be intact. Vascular-DP and PT pulses are palpable right foot BP (!) 143/97 (BP Location: Left arm) Pulse 81 Temp 97.9 F (36.6 C) (Infrared) Ht 5' 4 Wt 127 kg (280 lb) BMI 48.06 kg/m Laboratory and Additional Data Reviewed: Reviewed:[id number]} XR OR Foot Right 1 View Narrative: EXAMINATION: XR OR FOOT RIGHT 1 VIEW 09/28/2020 8:44 am HISTORY: ORDERING SYSTEM PROVIDED HISTORY: Excision Sherry's/ Retro calcaneal spur right heel, TECHNOLOGIST PROVIDED HISTORY: Illness/Other Reason for exam: Excision Sherry's/ Retro calcaneal spur right heel Encounter Type: Initial Additional signs and symptoms: Fluoro dose in mGy: .03 ORDERING SYSTEM PROVIDED DIAGNOSIS CODES: COMPARISON: Right ankle series December 21, 2019. TECHNIQUE: Single lateral fluoroscopic view of the right hindfoot was submitted from the surgical procedure. Fluoroscopy time is 0.01 minutes. 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 Impression: Postoperative changes as above. Please see operative report for further details. [employer] Workstation ID: [id number] documented in this encounter [place] [id number] Miscellaneous Notes Up to BR w/ assist, pivots well, voided QS. Nausea persists, see mar, back to cart w/ right foot elevated, new ice pack behind right knee. Brief Post Operative Note Patient Name: Sherin Sandoval : 1995 (25 y.o.) Date of Service: 09/28/2020 CSN: [id number] Procedure(s): EXCISION SHERRY'S /RETRO CALCANEAL SPUR RIGHT HEEL C-ARM POWER OSTEOTOMES BK CAST FIBERTAK ANCHORS 1.6 Pre-Operative Diagnoses: * Haglunds and retrocalcaneal heel spur right foot Post-Operative Diagnoses:same Surgeon(s) and Role: * Alvaro Lamb DPM - Primary RODENT EXTERMINATOR: Neo Price CRNA Cord Cutter: Joann Best RN Scrub Person: ST Lucie Operative findings: retrocalcaneal spur achilles tendon thickening Intra and immediate post-operative complications: none Type of anesthesia used: General Estimated blood loss: 1 mL Estimated urine output: Refer to surgical log Specimen(s): * No specimens in log * Implant(s): Implant Name Type Inv. Item Serial No. [employer] Professional Lot No. [id number] No. Used Action ANCHOR SUTURE #1 FIBERWIRE 2 DMD PT NEEDLES FIBERTAK DX - [id number] ANCHOR SUTURE #1 FIBERWIRE 2 DMD PT NEEDLES FIBERTAK DX [id number] [employer] [place] [id number] Right 2 Implanted Drain(s): * No LDAs found * Wound(s): Wound 09/28/20 Surgical Wound Foot Right (Active) Alvaro Lamb DPM 09/28/2020 9:08 AM Preop diagnosis: Retrocalcaneal heel spur and Sherry's deformity right foot Postop diagnosis: Procedure: Excision of retrocalcaneal heel spur and Sherry's deformity of the right foot . Application of below-knee nonweightbearing cast. Procedure indications: Patient is a 25-year-old female who is had a painful heel spur on the back of her right foot for many months duration. Patient's undergone conservative therapy which is failed to provide her with relief. Patient was explained risks and complications of all surgery and desired surgical removal of the spur at this time. Consent was signed preoperatively. Procedure detail: Patient is a 25-year-old female brought into the [facility] operating room placed the table in the supine position. Following administration of general anesthesia a well-padded thigh cuff was placed about the patient's right thigh. Next the patient was carefully placed into the table in the prone position. A preoperative anesthesia block was given consisted of 10 cc of a 50-50 mixture 2% lidocaine plain 0.5% Marcaine plain. Next the right foot leg were prepped and draped in the usual aseptic fashion. Following gravity exsanguination the well-padded thigh cuff was placed about the patient's thigh was inflated to 350 mmHg. Next attention was directed to the posterior aspect of the right heel where a 7 cm lazy S incision was placed. The incision was carefully deepened by blunt sharp dissection with care retract all neurovascular structures and Bovie all bleeders to level of the Achilles tendon attachment. Next it should be noted that I split the Achilles tendon and the equal medial lateral hallux with a #15 blade. I then detached the most central portion of the Achilles tendon insertion and noted there was a retrocalcaneal heel spur and Sherry's deformity. With a combination of osteotome and mallet along with a power rasp the spur on the back of the heel was removed. The wound was then flushed with copious muscle normal sterile saline and suction next to 1.6 fiber tack anchors were placed in the posterior aspect of the heel the foot was placed in a plantarflexed position in both the medial and lateral portion of the Achilles tendon were reattached to the insertion area on the posterior aspect of the calcaneus. This repair was then reinforced with 3-0 Vicryl on a taper needle. Also the longitudinal cut in the Achilles tendon was repaired with 3-0 Vicryl as well. The subcu was then reapproximated 4-0 Vicryl the skin with 4-0 nylon simple stitches. Post heel spur resection pictures were taken which show the spur and Sherry's deformity been removed. A postoperative injection was then given which consisted of 4 cc of 0.5% Marcaine plain. Postoperative dressings were applied consisted of Betadine soaked Adaptic 4 x 4's and a Kerlix. Postoperative below-knee nonweightbearing cast was applied to the foot plantarflexed thigh tourniquet on the right was released at 54 minutes and good circulatory status was noted to return to all digits of the right foot. Patient tolerated above procedure and anesthesia well and was transported to recovery room with vital signs stable and vascular status intact the right foot. In the recovery room patient directed to rest ice and elevate right foot. Patient given prescription for Percocet and Xarelto. Patient was told to be nonweightbearing with her knee scooter and follow-up in my private practice on Saturday next week. documented in this encounter [facility] 09-28-2020 Hospital Discharge instructions Alvaro Lamb DPM - 09/28/2020 9:20 AM EDT Patient is to be absolute nonweightbearing with her knee scooter for the right lower extremity Patient is to keep cast clean dry and intact Dispense prescriptions for Percocet for pain and Xarelto to prevent DVT Patient is to rest ice and elevate the right lower extremity at home. Patient is to follow-up in my private practice next Saturday. documented in this encounter [facility] 09-28-2020 History of Present illness Narrative Casting in place to right foot, site elevated with ice applied, toes warm pink movable with brisk cap refill noted documented in this encounter [facility] 09-28-2020 History and physical note INTERVAL HISTORY AND PHYSICAL Patient Name: Sherin Sandoval Admit Date: [id number] MR #: [id number] : 1995 The H&P has been reviewed and the patient has been examined. I concur with the findings of the H&P. There are no significant changes. It is appropriate to proceed with the planned procedure. Alvaro Lamb DPM 09/28/2020 7:31 AM documented in this encounter [facility] 09-28-2020 Nurse Note Art driving patient home. In lobby documented in this encounter [facility] 09-14-2020 Miscellaneous Notes Associated Problem(s): Anxiety Controlled with medication. Continue current medical therapy. Associated Problem(s): Pre-op examination RCRI score of 0; 3.9% 30-day risk of , RI, or, cardiac arrest. Pt denies chest pain, abnormal SOB with exertion, palpitations, syncope or near syncopal episodes, PND, orthopnea, or pedal edema. METS greater than 4. EKG denotes NSR with sinus arrhythmia. Per 2014 ACC/AHA guidelines, no further cardiac testing is indicated. Apfel score of 3; 61% 24-hour risk of PONV. Pt denies previous complications with anesthesia in the past. According to the stop bang assessment, the patient would be considered moderate risk for JOSEPH. Vital signs are within acceptable limit for surgery. Blood work has been reviewed and is within acceptable limits for surgery. Pt denies any active cardiac complaints. Pt would be considered an acceptable risk for surgery. Associated Problem(s): Morbid obesity with BMI of 45.0-49.9, adult (HCC) BMI: 48.06 Associated Problem(s): Bone spur of right foot Pt scheduled to undergo a EXCISION SHERRY'S /RETRO CALCANEAL SPUR RIGHT HEEL C-ARM POWER OSTEOTOMES BK CAST FIBERTAK ANCHORS 1.6 on 09/28/[address] Lamb under general anesthesia. documented in this encounter [facility] 09-14-2020 History and physical note Assessment and Plan Bone spur of right foot Pt scheduled to undergo a EXCISION SHERRY'S /RETRO CALCANEAL SPUR RIGHT HEEL C-ARM POWER OSTEOTOMES BK CAST FIBERTAK ANCHORS 1.6 on 09/28/[address] Lamb under general anesthesia. Morbid obesity with BMI of 45.0-49.9, adult (HCC) BMI: 48.06 Pre-op examination RCRI score of 0; 3.9% 30-day risk of , RI, or, cardiac arrest. Pt denies chest pain, abnormal SOB with exertion, palpitations, syncope or near syncopal episodes, PND, orthopnea, or pedal edema. METS greater than 4. EKG denotes NSR with sinus arrhythmia. Per 2014 ACC/AHA guidelines, no further cardiac testing is indicated. Apfel score of 3; 61% 24-hour risk of PONV. Pt denies previous complications with anesthesia in the past. According to the stop bang assessment, the patient would be considered moderate risk for JOSEPH. Vital signs are within acceptable limit for surgery. Blood work has been reviewed and is within acceptable limits for surgery. Pt denies any active cardiac complaints. Pt would be considered an acceptable risk for surgery. Anxiety Controlled with medication. Continue current medical therapy. Chief Complaint Patient presents with Pre-operative Medical Risk Stratification History of Present Illness Sherin Sandoval is a 25 year old female who presents for a preoperative medical risk stratification prior to undergoing EXCISION SHERRY'S /RETRO CALCANEAL SPUR RIGHT HEEL C-ARM POWER OSTEOTOMES BK CAST FIBERTAK ANCHORS [address] Lamb on 09/28/2020 under general anesthesia. The patient has a past medical history that consists of anxiety, morbid obesity, and bone spur to right heel. Pt denies previous complications with anesthesia. Blood work has been reviewed and is within acceptable limits for surgery. Pt denies personal cardiac history or any active cardiac complaints. EKG reviewed and is non acute. Please see below regarding status of active medical conditions and assessment and plan regarding details of preoperative medical risk stratification. Past Medical History: Diagnosis Date Anxiety Patient denies medical problems No past medical history pertinent negatives. Past Surgical History: Procedure Laterality Date TONSILLECTOMY WISDOM TOOTH EXTRACTION Social History Tobacco Use Smoking status: Never Smoker Smokeless tobacco: Never Used Substance Use Topics Alcohol use: No Family History Problem Relation Age of Onset No Known Problems Mother No Known Problems Father Prior to Admission medications Medication Sig Taking? Dose Freq FLUoxetine (PROZAC) 20 MG capsule Take by mouth daily . Oral, Daily FLUoxetine (PROZAC) 40 MG capsule Take by mouth daily . Oral, Daily norgestimate-ethinyl estradiol (SPRINTEC, 28,) 0.25-35 mg-mcg per tablet TAKE ONE TABLET BY MOUTH ONE TIME DAILY TAKE ONE TABLET BY MOUTH ONE TIME DAILY NuvaRing 0.12-0.015 mg/24 hr vaginal ring Insert 1 each into the vagina DIRECTED, REMOVE AFTER 3 WEEKS & WAIT 7 DAYS BEFORE INSERTING A NEW RING . 1 each, Vaginal, DIRECTED, REMOVE AFTER 3 WEEKS & WAIT 7 DAYS BEFORE INSERTING A NEW RING No Known Allergies Review of Systems Constitution: (negative) HENT: (negative) Eyes: (negative) Respiratory: (negative) Cardiovascular: (negative) - Exercise capacity: Greater than 4 METS Gastrointestinal: (negative) Genitourinary: (negative) Musculoskeletal: - Right foot/ankle pain Skin: (negative) Neurological: (negative) Hematological: (negative) Physical Exam BP 130/84 Pulse 93 Ht 5' 4 Wt 127 kg (280 lb) SpO2 95% BMI 48.06 kg/m Constitutional: She is oriented to person, place, and time. She appears well developed and well-nourished. No distress. HENT: Head: Normocephalic and atraumatic. Right Ear: External ear normal. No decreased hearing is noted. Left Ear: External ear normal. Nose: Nose normal. Mouth/Throat: Oropharynx is clear and moist. Normal dentition. No oropharyngeal exudate. Eyes: Conjunctivae and EOM are normal. Pupils are equal, round, and reactive to light. Right eye exhibits no discharge. Left eye exhibits no discharge. No scleral icterus. Neck: Normal range of motion. Neck supple. No JVD present. Carotid bruit is not present. No tracheal deviation present. No thyromegaly present. Cardiovascular: Normal heart sounds and intact distal pulses. Exam reveals no gallop and no friction rub. No murmur heard. Pulmonary/Chest: Effort normal and breath sounds normal. No stridor. No respiratory distress. She has no wheezes . She has no rales . She exhibits no tenderness. Abdominal: Soft. Bowel sounds are normal. She exhibits no distension and no mass. There is no hepatosplenomegaly. no tenderness There is no rebound and no guarding. No hernia. Musculoskeletal: She exhibits tenderness. She exhibits no edema. Right foot/ankle pain. Pt is wearing a boot with minimal weight bearing, using a crutch or w/c if needed for long distances. Lymphadenopathy: She has no cervical adenopathy. Neurological: She is alert and oriented to person, place, and time. She has normal strength. She displays no atrophy and no tremor. No cranial nerve deficit or sensory deficit. She exhibits normal muscle tone. She displays no seizure activity. Coordination abnormal. Skin: Skin is warm, dry and intact. No rash noted. She is not diaphoretic. No erythema. Psychiatric: She has a normal mood and affect. Her behavior is normal. Her mood appears not anxious. Her affect is not angry, not blunt, not labile and not inappropriate. She is not agitated, not aggressive, not hyperactive, not slowed, not withdrawn and not combative. Cognition and memory are normal. Cognition and memory are not impaired. She does not exhibit a depressed mood. She exhibits normal recent memory and normal remote memory. Data Preprocedure Sleep Apnea Assessment - Moderate Risk (2/3) Sleep Apnea in the patient's Active Problem List or Medical History: no 1. History of apparent airway obstruction during sleep: (1 point for this category) Do you snore frequently, or snore loud enough to be heard through a closed door?: no Do you awaken from sleep with a choking sensation or have periods during sleep when someone has observed you pausing between breaths?: no 2. Somnolence of the patient: (1 point for this category) Do you find yourself frequently sleepy despite adequate hours of sleep the night before?: no Do you fall asleep easily while: watching TV, reading, riding in or driving a car?: no 3. Predisposing physician characteristics: (1 point for this category, 2 points if the BMI ? 40) BMI (Calculated): 48 Neck Circumference (inches): 15.5 inches Recent Results (from the past 90828 hours) XR ANKLE RIGHT 3+ VIEWS (STANDARD) 12/21/2019 (Final) Status: Normal Narrative EXAMINATION: XR ANKLE RIGHT 3+ VIEWS (STANDARD) 12/21/2019 6:29 pm HISTORY: ORDERING SYSTEM PROVIDED HISTORY: pain and swelling of the lateral aspect secondary to a fall yesterday, TECHNOLOGIST PROVIDED HISTORY: Injury/Trauma Reason for exam: pain, swelling Cancer History: no Surgery, RadiationHistory: no Encounter Type: Initial Mechanism of injury: fall yesterday ORDERING SYSTEM PROVIDED DIAGNOSIS CODES: S99.911A Injury, ankle, right, initial encounter M25.571 Acute right ankle pain COMPARISON: None FINDINGS: No acute fracture is seen. Alignment of the osseous structures is normal. The joint spaces are preserved. The soft tissues appear unremarkable. Impression No obvious radiographic evidence for acute displaced fracture or malalignment. Workstation ID: [id number] documented in this encounter [facility] 09-14-2020 Instructions Mildred Wagner CNP - 09/14/2020 8:04 AM EDT Preoperative Medication Instructions In preparation for surgery please continue all of your current medications with the following changes: Sherin Sandoval Home Medication Instructions Prior to Surgery TETO:[id number] Printed on:09/14/20 08 Medication Information Take last dose on Take the morning of surgery Comment(s) FLUoxetine (PROZAC) 20 MG capsule Take by mouth daily . STOP ( medications that contain aspirin, such as Syl [place], Pepto-Bismol, Anacin), antiinflammatory medications such as Advil, Motrin, Ibuprofen, Naproxen, Aleve, Syl [place], Pepto-Bismol, Anacin, Diclofenac, Voltaren, Daypro, Etodolac, Ketoprofen, Piroxicam, Relafen, Nabumetone, etc. Also discontinue Vitamin C, Vitamin E, [place]-3 Fatty Acid, Fish Oil or Lovaza, and all herbal medications DIRECTED BY SURGEON. Tylenol (acetaminophen) is acceptable(unless you have an allergy to this medication ), but be careful to follow the label directions and do not use with other pain medications. On the morning of surgery, with as little water as possible, ONLY take the medications listed above in the column Take the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 unspecified whether serious comorbidity present (HCC) Procedures CONSULT TO [facility] WEIGHT [facility]NAGEMENT PROGRAM OFFICE/OUTPATIENT NEW HIGH MDM 60 MINUTES John Luque APRN.CNP [address] [place] [address] Referral ID Status Reason Start Date Expiration Date Visits Requested Visits Authorized [id number] Authorized PCP Requested Referral Auto-Generate d Referral 11/13/2023 11/12/2024 1 1 [facility] Outpatient Procedure (Routine) - Closed Specialty Diagnoses / Procedures Referred By Contac t Referred To Contact [facility] Diagnoses Abnormal uterine bleeding (AUB) Procedures ENDOMETRIAL BIOPSY ENDOMETRIAL BX W/WO ENDOCERVIX BX W/O DILAT SPX John Luque APRN.CNP [address] [place] [address] [facility] [address] [place] [address] Referral ID Status Reason Start Date Expiration Date V isits Requested Visits Authorized [id number] Closed Auto-Generate d Referral 11/28/2023 11/27/2024 1 1 [facility] for referral (narrative)* Diagnostic Procedure Only (Routine) - Authorized Specialty Diagnoses / Procedures Referred By Contac t Referred To Contact [facility] Diagnoses Pelvic pain in female Procedures PELVIC US WHI US PELVIC NONOBSTETRIC REAL-TIME IMAGE COMPLETE John Luque APRN.CNP [address] [place] [address] [facility] [address] [place] [id number] Referral ID Status Reason Start Date Expiration Date Visits Requested Visits Authorized [id number] Authorized Auto-Generat ed Referral 01/02/2024 05/12/2024 1 1 [facility] for referral (narrative)* Outpatient Procedure (Routine) - Authorized Specialty Diagnoses / Procedures Referred By Contac t Referred To Contact [facility] Diagnoses Encounter for IUD removal Encounter for insertion of intrauterine contraceptive device Procedures REMOVE INTRAUTERINE DEVICE REMOVE INTRAUTERINE DEVICE INSERT INTRAUTERINE DEVICE LEVONORGESTREL IU 52MG 5 YR Itz Burris MD [address] [place] [address] [facility] [address] [place] [address] Referral ID Status Reason Start Date Expiration Date Visits Requested Visits Authorized [id number] Authorized Auto-Generat ed Referral 05/12/2024 2 2 T [facility] for visit Narrative* Diagnostic Procedure Only (Routine) - Closed Specialty Diagnoses / Procedures Referred By Contac t Referred To Contact [facility] Diagnoses Lump of scalp Procedures US HEAD/NECK SOFT TISSUE OTHER US SOFT TISSUE HEAD & NECK REAL TIME IMGE DOCM Javier Riojas APRN.[employer] [address] [phone] [place] [address] Referral ID Status Reason Start Date Expiration Date V isits Requested Visits Authorized [id number] Closed Auto-Generate d Referral 09/23/2023 10/22/2024 1 1 [facility] for visit Narrative* Diagnostic Procedure Only (Routine) - Closed Specialty Diagnoses / Procedures Referred By Contac t Referred To Contact [facility] Diagnoses Abnormal uterine bleeding Procedures US FEMALE PELVIS TRANSVAG US TRANSVAGINAL John Luque APRN.[employer] [address] [place] [address] [place] [address] Referral ID Status Reason Start Date Expiration Date V isits Requested Visits Authorized [id number] Closed Auto-Generate d Referral 11/04/2023 12/03/2024 1 1 [facility] for visit Narrative* Diagnostic Procedure Only (Routine) - Closed Specialty Diagnoses / Procedures Referred By Contac t Referred To Contact [facility] Diagnoses Pelvic pain in female Procedures PELVIC US WHI US PELVIC NONOBSTETRIC REAL-TIME IMAGE COMPLETE Jonh Luque APRN.[employer] [address] [place] [phone] [facility] [address] [place] [address] Referral ID Status Reason Start Date Expiration Date V isits Requested Visits Authorized [id number] Closed Auto-Generate d Referral 01/02/2024 05/12/2024 1 1 [facility] Summary Purpose Family History No Family History Records FoundUnknown Family Member Name Dates Details No pertinent family history: Mother(V49.89, Z78.9) Status:Active Family history of throat can cer: Father(V16.0, Z80.0) Status:Active Unknown Family Member Name Dates Details No pertinent family history: Mother(V49.89, Z78.9) Status:Active Family history of throat can cer: Father(V16.0, Z80.0) Status:Active Unknown Family Member Name Dates Details No pertinent family history: Mother(V49.89, Z78.9) Status:Active Family history of throat can cer: Father(V16.0, Z80.0) Status:Active Unknown Family Member Name Dates Details No pertinent family history: Mother(V49.89, Z78.9) Status:Active Family history of throat can cer: Father(V16.0, Z80.0) Status:Active Unknown Family Member Name Dates Details No pertinent family history: Mother(V49.89, Z78.9) Status:Active Family history of throat can cer: Father(V16.0, Z80.0) Status:Active Unknown Family Member Name Dates Details No pertinent family history: Mother(V49.89, Z78.9) Status:Active Family history of throat can cer: Father(V16.0, Z80.0) Status:Active Unknown Family Member Name Dates Details Family history of malignant neoplasm of breast: Mother(V16.3, Z80.3) Comments:mom genetics negati ve; Status:Active Family history of throat can cer: Father(V16.0, Z80.0) Status:Active Unknown Family Member Name Dates Details Family history of throat can cer: Father(V16.0, Z80.0) Status:Active Family history of malignant neoplasm of breast: Mother(V16.3, Z80.3) Comments:mom genetics negati ve; Status:Active Unknown Family Member Name Dates Details Family history of throat can cer: Father(V16.0, Z80.0) Status:Active Family history of malignant neoplasm of breast: Mother(V16.3, Z80.3) Comments:mom genetics negati ve; Status:Active Unknown Family Member Name Dates Details Family history of throat can cer: Father(V16.0, Z80.0) Status:Active Family history of malignant neoplasm of breast: Mother(V16.3, Z80.3) Comments:mom genetics negati ve; Status:Active Unknown Family Member Name Dates Details Family history of throat can cer: Father(V16.0, Z80.0) Status:Active Family history of malignant neoplasm of breast: Mother(V16.3, Z80.3) Comments:mom genetics negati ve; Status:Active Unknown Family Member Name Dates Details Family history of throat can cer: Father(V16.0, Z80.0) Status:Active Family history of malignant neoplasm of breast: Mother(V16.3, Z80.3) Comments:mom genetics negati ve; Status:Active Unknown Family Member Name Dates Details Family history of throat can cer: Father(V16.0, Z80.0) Status:Active Family history of malignant neoplasm of breast: Mother(V16.3, Z80.3) Comments:mom genetics negati ve; Status:Active Unknown Family Member Name Dates Details Family history of throat can cer: Father(V16.0, Z80.0) Status:Active Family history of malignant neoplasm of breast: Mother(V16.3, Z80.3) Comments:mom genetics negati ve; Status:Active Unknown Family Member Name Dates Details Family history of throat can cer: Father(V16.0, Z80.0) Status:Active Family history of malignant neoplasm of breast: Mother(V16.3, Z80.3) Comments:mom genetics negati ve; Status:Active Unknown Family Member Name Dates Details Family history of throat can cer: Father(V16.0, Z80.0) Status:Active Family history of malignant neoplasm of breast: Mother(V16.3, Z80.3) Comments:mom genetics negati ve; Status:Active Unknown Family Member Name Dates Details Family history of throat can cer: Father(V16.0, Z80.0) Status:Active Family history of malignant neoplasm of breast: Mother(V16.3, Z80.3) Comments:mom genetics negati ve; Status:Active Unknown Family Member Name Dates Details Family history of malignant neoplasm of breast: Mother(V16.3, Z80.3) Comments:mom genetics negati ve; Status:Active Family history of throat can cer: Father(V16.0, Z80.0) Status:Active Unknown Family Member Name Dates Details Family history of throat can cer: Father(V16.0, Z80.0) Status:Active Family history of malignant neoplasm of breast: Mother(V16.3, Z80.3) Comments:mom genetics negati ve; Status:Active Unknown Family Member Name Dates Details Family history of throat can cer: Father(V16.0, Z80.0) Status:Active Family history of malignant neoplasm of breast: Mother(V16.3, Z80.3) Comments:mom genetics negati ve; Status:Active Unknown Family Member Name Dates Details Family history of throat can cer: Father(V16.0, Z80.0) Status:Active Family history of malignant neoplasm of breast: Mother(V16.3, Z80.3) Comments:mom genetics negati ve; Status:Active Unknown Family Member Name Dates Details Family history of throat can cer: Father(V16.0, Z80.0) Status:Active Family history of malignant neoplasm of breast: Mother(V16.3, Z80.3) Comments:mom genetics negati ve; Status:Active Unknown Family Member Name Dates Details Family history of throat can cer: Father(V16.0, Z80.0) Status:Active Family history of malignant neoplasm of breast: Mother(V16.3, Z80.3) Comments:mom genetics negati ve; Status:Active Unknown Family Member Name Dates Details Family history of throat can cer: Father(V16.0, Z80.0) Status:Active Family history of malignant neoplasm of breast: Mother(V16.3, Z80.3) Comments:mom genetics negati ve; Status:Active Unknown Family Member Name Dates Details Family history of throat can cer: Father(V16.0, Z80.0) Status:Active Family history of malignant neoplasm of breast: Mother(V16.3, Z80.3) Comments:mom genetics negati ve; Status:Active Unknown Family Member Name Dates Details Family history of throat can cer: Father(V16.0, Z80.0) Status:Active Family history of malignant neoplasm of breast: Mother(V16.3, Z80.3) Comments:mom genetics negati ve; Status:Active Advance Directives No Advanced Directives Records FoundDocuments on File Type Date Recorded Patient Materials Tech Expl anation Advance Directives and Living Will Documents on File Type Date Recorded Patient Materials Tech Expl anation Advance Directives and Living Will Documents on File Type Date Recorded Patient Materials Tech Expl anation Advance Directives and Livin g Will 09/14/2020 7:42 AM Documents on File Type Date Recorded Patient Materials Tech Expl anation Advance Directives and Livin g Will 09/14/2020 7:42 AM Latest Code Status on File Code Status Date Activated Date Inactivated Comments Full Code 09/28/2020 9:19 AM 09/28/2020 2:05 PM Latest Code Status on File Code Status Date Activated Date Inactivated Comments Full Code 09/28/2020 9:19 AM 09/28/2020 2:05 PM Reason for Referral Status Reason Specialty Diagnoses / Procedures Referred By Contact Referred To Contact Authorized Specialty Services Required/[facility]ie nt[facility] Best Interest Orthopedic Surgery Diagnoses Injury, ankle, right, initial encounter Acute right ankle pain Sprain of right ankle, unspecified ligament, initial encounter William Strong, [employer] [address] [place] [address] John Muniz MD [facility] [place] [address] Status Reason Specialty Diagnoses / Procedures Referred By Contact Referred To Contact Authorized Rehabilitation Diagnoses Tendonitis, Achilles, right Alvaro Lamb, DPM [address] [place] [address] [facility] [address] [phone] Specialty Diagnoses / Procedures Referred By Contac t Referred To Contact Diagnoses Abnormal menstrual periods Procedures CONSULT TO FLASK MAKER OFFICE/OUTPATIENT [facility] 60 MINUTES Javier Riojas APRN.[employer] [address] [place] [address] Referral ID Status Reason Start Date Expiration Date Visits Requested Visits Authorized [id number] Authorized PCP Requested Referral Auto-Generate d Referral 08/26/2023 08/25/2024 1 1 Specialty Diagnoses / Procedures Referred By Contac t Referred To Contact Rheumatology Diagnoses Abnormal laboratory test Procedures CONSULT TO RHEUM/IMMUN DISEASE OFFICE/OUTPATIENT [facility] 60 MINUTES Javier Riojas APRN.[employer] [address] [place] [address] Referral ID Status Reason Start Date Expiration Date Visits Requested Visits Authorized [id number] Authorized PCP Requested Referral 09/27/2023 09/26/2024 1 1 Specialty Diagnoses / Procedures Referred By Contac t Referred To Contact Dermatology Diagnoses Lump of scalp Procedures CONSULT TO DERMATOLOGY Javier Riojas APRN.[facility] [address] [place] [address] Referral ID Status Reason Start Date Expiration Date Visits Requested Visits Authorized [id number] Ref Not Required PCP Requested Referral 10/14/2023 10/13/2024 1 1 Specialty Diagnoses / Procedures Referred By Contac t Referred To Contact Gastroenterology Diagnoses Nausea Procedures CONSULT TO GASTROENTEROLOGY OFFICE/OUTPATIENT [facility] 60 MINUTES Joe Jean MD [address] [address] Referral ID Status Reason Start Date Expiration Date Visits Requested Visits Authorized [id number] Authorized PCP Requested Referral 11/22/2023 11/21/2024 1 1 Specialty Diagnoses / Procedures Referred By Contac t Referred To Contact Hematology Diagnoses Abnormal laboratory test Procedures CONSULT TO HEMATOLOGY OFFICE/OUTPATIENT [facility] 60 MINUTES Jolene Berry MD [address] [place] [address] Referral ID Status Reason Start Date Expiration Date Visits Requested Visits Authorized [id number] Authorized PCP Requested Referral 02/04/2024 02/03/2025 1 1 Specialty Diagnoses / Procedures Referred By Contac t Referred To Contact Diagnoses Insulin resistance Vikki Epstein MD [address] [place] [address] Referral ID Status Reason Start Date Expiration Date V isits Requested Visits Authorized [id number] Pending Review 03/03/2024 05/02/2024 1 1 Specialty Diagnoses / Procedures Referred By Contac t Referred To Contact Diagnoses Class 3 severe obesity with body mass index (BMI) of 50.0 to 59.9 in adult, unspecified obesity type, unspecified whether serious comorbidity present (HCC) Vikki Epstein MD [address] [place] [address] Referral ID Status Reason Start Date Expiration Date V isits Requested Visits Authorized [id number] Pending Review 04/10/2024 06/09/2024 1 1 Specialty Diagnoses / Procedures Referred By Contac t Referred To Contact Nutrition Diagnoses Insulin resistance Vitamin D deficiency Hypertriglyceridemia Class 3 severe obesity with body mass index (BMI) of 50.0 to 59.9 in adult, unspecified obesity type, unspecified whether serious comorbidity present (HCC) Elevated blood pressure reading without diagnosis of hypertension Procedures CONSULT TO NUTRITION THERAPY MEDICAL NUTRITION ASSMT&IVNTJ INDIV EACH 15 RI Vikki Epstein MD [address] [place] [address] Referral ID Status Reason Start Date Expiration Date Visits Requested Visits Authorized [id number] Authorized PCP Requested Referral 05/20/2024 05/20/2025 1 4 Specialty Diagnoses / Procedures Referred By Contac t Referred To Contact Diagnoses Malaise and fatigue Class 3 severe obesity with body mass index (BMI) of 50.0 to 59.9 in adult, unspecified obesity type, unspecified whether serious comorbidity present (HCC) Elevated blood pressure reading without diagnosis of hypertension Procedures CONSULT TO SLEEP MEDICINE - ADULT OFFICE/OUTPATIENT [facility] 60 MINUTES Vikki Epstein MD [address] [place] [address] Referral ID Status Reason Start Date Expiration Date Visits Requested Visits Authorized [id number] Authorized PCP Requested Referral 05/20/2024 05/20/2025 1 1 Specialty Diagnoses / Procedures Referred By Contac t Referred To Contact [facility] Diagnoses Malaise and fatigue Class 3 severe obesity with body mass index (BMI) of 50.0 to 59.9 in adult, unspecified obesity type, unspecified whether serious comorbidity present (HCC) Elevated blood pressure reading without diagnosis of hypertension Procedures HOME SLEEP APNEA TEST (HSAT) SLEEP STD AIRFLOW HRT RATE&O2 SAT EFFORT UNATT Vikki Epstein MD [address] [place] [address] [facility] [address] [place] [address] Referral ID Status Reason Start Date Expiration Date V isits Requested Visits Authorized [id number] Open Auto-Generate d Referral 05/20/2024 05/20/2025 1 1 Instructions * Patient Instructions* William Strong, [employer] - 12/21/2019 7:23 PM EDT Ankle Sprain: Care Instructions Your Care Instructions An ankle sprain can happen when you twist your ankle. The ligaments that support the ankle can get stretched and torn. Often the ankle is swollen and painful. Ankle sprains may take from several weeks to several months to heal. Usually, the more pain and swelling you have, the more severe your ankle sprain is and the longer it will take to heal. You can heal faster and regain strength in your ankle with good home treatment. It is very important to give your ankle time to heal completely, so that you do not easily hurt your ankle again. Follow-up care is a lehman part of your treatment and safety. Be sure to make and go to all appointments, and call your doctor if you are having problems. It's also a good idea to know your test resultsand keep a list of the medicines you take. How can you care for yourself at home? Prop up your foot on pillows as much as possible for the next 3 days. Try to keep your ankle above the level of your heart. This will help reduce the swelling. Follow your doctor's directions for wearing a splint or elastic bandage. Wrapping the ankle may help reduce or prevent swelling. Your doctor may give you a splint, a brace, an air stirrup, or another form of ankle support to protect your ankle until it is healed. Wear it as directed while your ankle is healing. Do not remove it unless your doctor tells you to. After your ankle has healed, ask your doctor whether you should wear the brace when you exercise. Put ice or cold packs on your injured ankle for 10 to 20 minutes at a time. Try to do this every 1 to 2 hours for the next 3 days (when you are awake) or until the swelling goes down. Put a thin cloth between the ice and your skin. You may need to use crutches until you can walk without pain. If you do use crutches, try to bear some weight on your injured ankle if you can do so without pain. This helps the ankle heal. Take pain medicines exactly as directed. ? If the doctor gave you a prescription medicine for pain, take it as prescribed. ? If you are not taking a prescription pain medicine, ask your doctor if you can take an vuqp-loe-xahjoxv medicine. If you have been given ankle exercises to do at home, do them exactly as instructed. These can promote healing and help prevent lasting weakness. When should you call for help? Call your doctor now or seek immediate medical care if: Your pain is getting worse. Your swelling is getting worse. Your splint feels too tight or you are unable to loosen it. Watch closely for changes in your health, and be sure to contact your doctor if: You are not getting better after 1 week. Where can you learn more? Log into your personal health record on [email or web address] and enter S771 in the Education box to learn more about Ankle Sprain: Care Instructions. Current as of: July 13, 2019 Content Version: 12.5 [employer]. Care instructions adapted under license by your healthcare professional. If you have questions about a medical condition or this instruction, always ask your healthcare professional. [employer] disclaims any warranty or liability for your use of this information. Thank you for choosing [facility] [place] your [place] care needs today. Call Dr. Muniz to schedule your follow up appointment. Ice elevate and crutches. You may add topical pain relief medication to the ankle at night with the brace off such as Voltaren Gel or Salonpas. documented in this encounter History of Present Illness * William Strong CNP - 12/21/2019 6:23 PM EDT Patient Name: [facility] Location: [place] [address] [place] [id number] Date Of : Date Of Visit: 1995 12/21/2019 MRN# Provider: [id number] William Strong CNP Chief Complaint Patient presents with Ankle Injury right ankle pain since falling yesterday am Assessment & Plan 1. Injury, ankle, right, initial encounter XR Ankle Right 3+ Views (Standard) Ambulatory referral to Orthopedic Surgery ibuprofen (ADVIL,MOTRIN) 800 MG tablet 2. Acute right ankle pain XR Ankle Right 3+ Views (Standard) Ambulatory referral to Orthopedic Surgery ibuprofen (ADVIL,MOTRIN) 800 MG tablet Ankle brace 3. Sprain of right ankle, unspecified ligament, initial encounter Ambulatory referral to OrthopedicSurgery No follow-ups on file. Medical Decision Making Client in NAD. Mild swelling of the lateral right ankle. X-ray of the ankle. Phone call to radiology department for reading to determine need for splint or ankle brace. Possible abnormality of the navicular bone. Motrin for pain. Client with crutches. XR negative fracture. Client would like ortho referral. Additional Clinical Comments Discussed over the counter medications for symptomatic management and side effects of medications. Recommended taking all medications with food and to stop medications if they develop any signs of anallergic reaction. [facility] COVID-19 Mask Status: Does the patient have classic COVID-19 symptoms? No, the patient does not have COVID-19 symptoms, the patient WAS wearing a mask during the visit and I (the provider) WAS wearing a mask during the visit. Subjective 24 y.o. female presents with Ankle Injury (right ankle pain since falling yesterday am) Client with report of pain in the right ankle after a fall yesterday. Client reports she fell backward on 2 steps landing on her backpack and felt immediate pain in the right ankle. She is unsure of how the injury occurred. Non-smoker. Not . Client reports she has crutches. Ankle Injury The incident occurred 12 to 24 hours ago. The injury mechanism was a fall. The pain is present in the right ankle. The quality of the pain is described as aching. Pain scale: 9/10 with weight bearing. The pain has been fluctuating since onset. Associated symptoms include an inability to bear weight. Pertinent negatives include no loss of motion, loss of sensation, muscle weakness, numbness or tingling. She reports no foreign bodies present. The symptoms are aggravated by weight bearing, movement and palpation. She has tried NSAIDs, ice, non-weight bearing and elevation for the symptoms. The treatment provided moderate relief. Review Of Systems Review of Systems Constitutional: Negative for fever. HENT: Negative for sore throat. Respiratory: Negative for cough and shortness of breath. Musculoskeletal: Right ankle pain and swelling. Skin: Negative for color change and wound. Neurological: Negative for tingling and numbness. Medical History Past Medical History: Diagnosis Date Anxiety Patient denies medical problems Past Surgical History: Procedure Laterality Date TONSILLECTOMY WISDOM TOOTH EXTRACTION There is no problem list on file for this patient. Social History Social History Tobacco Use Smoking status: Never Smoker Smokeless tobacco: Never Used Substance Use Topics Alcohol use: No Drug use: No Family History Family History Problem Relation Age of Onset No Known Problems Mother No Known Problems Father Objective Physical Exam BP 133/86 Pulse 76 Temp 98.4 F (36.9 C) (Infrared) Resp 16 Ht 5' 4 Wt 113.4 kg (250 lb) LMP 12/14/2019 SpO2 98% No BMI 42.91 kg/m Vision/Hearing Exam:No exam data present Physical Exam Vitals signs and nursing note reviewed. Constitutional: General: She is not in acute distress. Appearance: Normal appearance. She is not ill-appearing, toxic-appearing or diaphoretic. HENT: Head: Normocephalic and atraumatic. Cardiovascular: Rate and Rhythm: Normal rate. Pulmonary: Effort: Pulmonary effort is normal. Musculoskeletal: Comments: Client with tender swelling of the lateral right malleolus. She reports pain with range of motion. Skin is intact and there is no bruising. Pulses present. Skin: General: Skin is warm and dry. Neurological: Mental Status: She is alert and oriented to person, place, and time. Psychiatric: Mood and Affect: Mood normal. Procedure Notes Procedures Results No results found for this or any previous visit (from the past 168 hour(s)). XR Ankle Right 3+ Views (Standard) Final Result No obvious radiographic evidence for acute displaced fracture or malalignment. Workstation ID: [id number] Orders Placed This Visit Orders Placed This Encounter Procedures Ankle brace XR Ankle Right 3+ Views (Standard) Ambulatory referral to Orthopedic Surgery Medication List At End Of Visit Current Outpatient Medications Medication Sig Dispense Refill FLUoxetine (PROZAC) 40 MG capsule Take by mouth daily . norgestimate-ethinyl estradiol (SPRINTEC, 28,) 0.25-35 mg-mcg per tablet TAKE ONE TABLET BY MOUTH ONE TIME DAILY NuvaRing 0.12-0.015 mg/24 hr vaginal ring Insert 1 each into the vagina DIRECTED, REMOVE AFTER 3WEEKS & WAIT 7 DAYS BEFORE INSERTING A NEW RING . FLUoxetine (PROZAC) 10 MG capsule Take by mouth daily . FLUoxetine (PROZAC) 20 MG capsule Take by mouth daily . ibuprofen (ADVIL,MOTRIN) 800 MG tablet Take 1 (one) tablet (800 mg total) by mouth every 8 (eight) hours as needed for pain . 30 tablet 0 No current facility-administered medications for this visit. Patient Instructions Ankle Sprain: Care Instructions Your Care Instructions An ankle sprain can happen when you twist your ankle. The ligaments that support the ankle can get stretched and torn. Often the ankle is swollen and painful. Ankle sprains may take from several weeks to several months to heal. Usually, the more pain and swelling you have, the more severe your ankle sprain is and the longer it will take to heal. You can heal faster and regain strength in your ankle with good home treatment. It is very important to give your ankle time to heal completely, so that you do not easily hurt your ankle again. Follow-up care is a lehman part of your treatment and safety. Be sure to make and go to all appointments, and call your doctor if you are having problems. It's also a good idea to know your test resultsand keep a list of the medicines you take. How can you care for yourself at home? Prop up your foot on pillows as much as possible for the next 3 days. Try to keep your ankle above the level of your heart. This will help reduce the swelling. Follow your doctor's directions for wearing a splint or elastic bandage. Wrapping the ankle may help reduce or prevent swelling. Your doctor may give you a splint, a brace, an air stirrup, or another form of ankle support to protect your ankle until it is healed. Wear it as directed while your ankle is healing. Do not remove it unless your doctor tells you to. After your ankle has healed, ask your doctor whether you should wear the brace when you exercise. Put ice or cold packs on your injured ankle for 10 to 20 minutes at a time. Try to do this every 1 to 2 hours for the next 3 days (when you are awake) or until the swelling goes down. Put a thin cloth between the ice and your skin. You may need to use crutches until you can walk without pain. If you do use crutches, try to bear some weight on your injured ankle if you can do so without pain. This helps the ankle heal. Take pain medicines exactly as directed. ? If the doctor gave you a prescription medicine for pain, take it as prescribed. ? If you are not taking a prescription pain medicine, ask your doctor if you can take an tzfy-dhe-morjrcy medicine. If you have been given ankle exercises to do at home, do them exactly as instructed. These can promote healing and help prevent lasting weakness. When should you call for help? Call your doctor now or seek immediate medical care if: Your pain is getting worse. Your swelling is getting worse. Your splint feels too tight or you are unable to loosen it. Watch closely for changes in your health, and be sure to contact your doctor if: You are not getting better after 1 week. Where can you learn more? Log into your personal health record on [email or web address].Lyst and enter S771 in the Education box to learn more about Ankle Sprain: Care Instructions. Current as of: July 13, 2019 Content Version: 12.5 [employer]. Care instructions adapted under license by your healthcare professional. If you have questions about a medical condition or this instruction, always ask your healthcare professional. [employer] disclaims any warranty or liability for your use of this information. Thank you for choosing [facility] [place] your health care needs today. Call Dr. Muniz to schedule your follow up appointment. Ice elevate and crutches. You may add topical pain relief medication to the ankle at night with the brace off such as Voltaren Gel or Salonpas. documented in this encounter* Thiago Rosario CNP - 01/06/2020 11:06 AM EDT Subjective: Sherin Sandoval is a 24 y.o. 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 Review of Systems Constitutional: Negative for chills, diaphoresis and fever. Respiratory: Negative for shortness of breath. Cardiovascular: Negative for chest pain, palpitations and leg swelling. Genitourinary: Negative for frequency and urgency. Musculoskeletal: Positive for arthralgias, gait problem and myalgias. Skin: Negative for color change, rash and wound. Neurological: Negative for dizziness, syncope and weakness. Psychiatric/Behavioral: Negative for agitation. The patient is not nervous/anxious. Objective: BP (!) 141/94 Pulse 93 Ht 5' 4 Wt 113.4 kg (250 lb) LMP 12/14/2019 BMI 42.91 kg/m Physical Exam Constitutional: She is oriented to person, place, and time. She appears well- developed and well-nourished. HENT: Head: Normocephalic and atraumatic. Eyes: Pupils are equal, round, and reactive to light. Neck: Normal range of motion. Neck supple. Cardiovascular: Normal rate and regular rhythm. Pulmonary/Chest: Effort normal and breath sounds normal. Abdominal: Soft. Bowel sounds are normal. Musculoskeletal: General: Tenderness and edema present. Neurological: She is alert and oriented to person, place, and time. She has normal reflexes. Skin: Skin is warm and dry. Impression: 1. Moderate right ankle sprain, initial encounter Sherin Sandoval was agreeable to the plan and there were no learning barriers encountered. Past Medical History: Diagnosis Date Anxiety Patient denies medical problems and Past Surgical History: Procedure Laterality Date TONSILLECTOMY WISDOM TOOTH EXTRACTION Past medical, past surgical, family history, medications, allergies, and smoking status reviewed and updated as appropriate in [employer]. A 13-system review of systems was completed by Sherin carcamo andreviewed by Thiago ELIZABETH during the visit. This has been initialed, dated, and scanned to this encounter. Objective: Vitals: 01/06/20 1058 BP: (!) 141/94 Pulse: 93 Weight: 113.4 kg (250 lb) Height: 5' 4 General: no acute distress Neurologic: Patient is alert and oriented x3 pleasant and cooperative. Mood and affect: Normal HEENT: normocephalic, attraumatic. Extraocular muscles grossly normal. Pulm: respiratory effort is normal Foot and Ankle - Physical Exam Standing: Alignment: normal Arch: mild pes planus Double Heel Raise: unable without subtalar joint inversion Single Heel Raise: unable Gait: ambulates with a painful to bear weight gait, with an assistive device crutches. Stability Ankle: not tested Subtalar: stable 1st MT-Cun: stable Pulses Dorsal Pedis: Present 2+ Tibial Artery: Present 2+ Skin Intact with mild ecchymosis to lateral malleolus Radiographs: Xrays from 12/20 were reviewed today in clinic and discussed with the patient. A formal read will beperfomed by radiology. They were also interpreted by myself. My findings and impressions can be found below. Right ankle FINDINGS: No acute fracture is seen. Alignment of the osseous structures is normal. The joint spaces are preserved. The soft tissues appear unremarkable. CC: No ref. provider found Jeni Mauro CNP Imaging from this visit: Assessment/Plan: Diagnosis: Ankle Sprain 1. You will be placed in an ankle brace. You may wear this as you get back into activity and may decrease wear when advised by PT. 2. You will be able to exercises at home but may recommend PT if unable to perform . PT will focus on balance and strengthening exercises with you. They will also give you exercises that you should do at home. Make sure that you do these exercises everyday. PT will also use additional tools (known as modalities). 3. You should take anti-inflammatory medication to manage the swelling and inflammation. We recommend ibuprofen 600 mg PO TID over the counter. 4. Ice and heat may be used as well. Do not ice or heat for more than 20 minutes [address] time[address] Place acloth rag or other barrier between your skin and the ice pack or heat pack so you do not hurt your skin. 1. Moderate right ankle sprain, initial encounter Return in about 4 weeks (around 02/03/2020). Thiago Rosario CNP 01/06/2020 documented in this encounter Assessments Diagnosis Injury, ankle, right, initial encounter Acute right ankle pain Sprain of right ankle, unspecified ligament, initial encounter Diagnosis Moderate right ankle sprain, initial encounter- Primary Diagnosis Tendonitis, Achilles, right- Primary Chief Complaint Left Renal StoneER follow-up - Kidney issues - Kidney stones.Wants to discuss getting back on her old anxiety medication - Fluoxetine. Pt also went to the ER after her last appointment like advised and she did have another kidney stone. Did want to ask if you were able to start her on control before she gets in to see a HAND BOOKED F[employer]DER [employer] ST[employer]ER doctor for excessive bleeding.Wants to discuss getting back on her old anxiety medication - Fluoxetine. Pt also went to the ER after her last appointment like advised and she did have another kidney stone. Did want to ask if you were able to start her on control before she gets in to see a [employer] BOOKED [employer] ST[employer]ER doctor for excessive bleeding.NEW PT HERE TODAY WITH CONCERNS OF CONSTANT HEAVY BLEEDING. PT STATES SHE HAS BEEN BLEEDING NON-STOP FOR THREE YEARS. PT STATES SHE WAS ON CONTROL PILLS PRIOR AND IT SEEMED TO HELP WITH THE BLEEDING. PT STATES SHE WOULD LIKE TO GET PUT ON CONTROL PILL. DUE TO HAVING AN IUD IN THE PAST HER BODY DIDNT REACT WELL TO IT. PT LAST PAP WAS 2018. PT ALSO STATED HER MOTHER HAD SIMILAR SYMPTOMSAT THE AGE OF 29 AND ENDED UP GETTING A HYSTERECTOMY.1 month follow-up - wants to discuss increasing the anxiety medication.PT IS HERE TODAY FOR U/S, BLOOD WORK RESULTS AND AN EMB. HAS NO NEW CONCERNS.HTN - Was in the ER yesterday for low hemoglobin.6 week follow-up. Weakness/not feeling well.2 month. Additional Source Comments INFORMATION SOURCE (unrecogn ized section and content) DATE CREATED AUTHOR 03/21/2019 [facility] DATE CREATED AUTHOR AUTHOR'S ORGANIZ ATION 12/25/2019 [facility] DATE CREATED AUTHOR AUTHOR'S ORGANIZ ATION 09/26/2020 [facility] DATE CREATED AUTHOR AUTHOR'S ORGANIZ ATION 12/10/2020 [facility] DATE CREATED AUTHOR AUTHOR'S ORGANIZ ATION 09/17/2021 [facility] DATE CREATED AUTHOR AUTHOR'S ORGANIZ ATION 10/14/2021 [facility] DATE CREATED AUTHOR AUTHOR'S ORGANIZ ATION 04/11/2022 [facility] DATE CREATED AUTHOR AUTHOR'S ORGANIZ ATION 07/13/2022 [facility] DATE CREATED AUTHOR AUTHOR'S ORGANIZ ATION 08/01/2022 [facility] DATE CREATED AUTHOR AUTHOR'S ORGANIZ ATION 11/01/2023 [facility] DATE CREATED AUTHOR AUTHOR'S ORGANIZ ATION 01/04/2024 [facility] DATE CREATED AUTHOR AUTHOR'S ORGANIZ ATION 03/02/2025 [facility] Reason for Visit (unrecogniz ed section and content) Reason Comments Ankle Injury right ankle pain sin ce falling yesterday am Reason Comments 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 Injury Reason Comments Pre-operative Medical Risk Stratificatio n Status Reason Specialty Diagnoses / Procedures Referre d By Contact Referred To Contact Diagnoses PAINFUL SPUR RIGHT HEEL ACHILLES TENDONITIS RIGHT Procedures EXCISION SHERRY'S /RETRO CALCANEAL SPUR RIGHT HEEL C-ARM POWER OSTEOTOMES BK CAST FIBERTAK ANCHORS 1.6 Reason Comments Follow-up R foot post exdision haglunds deformity Reason Comments Dizziness Chest tightness, SOB , fatigue x2 weeks Reason Comments Establish Care Reason Comments Results Reason Comments Med Change Request Reason Comments Follow Up Medication follow up Reason Comments Results Reason Comments Follow Up Reason Onset Date Comments Refill Request 10/30/2023 Reason Comments Yearly Exam Specialty Diagnoses / Procedures Referred By Contac t Referred To Contact Diagnoses Abnormal menstrual periods Procedures CONSULT TO FLASK MAKER OFFICE/OUTPATIENT [facility] 60 MINUTES Javier Riojas APRN.[employer] [address] [place] [address] Referral ID Status Reason Start Date Expiration Date V isits Requested Visits Authorized [id number] Closed PCP Requested Referral Auto-Generated Referral 08/26/2023 08/25/2024 1 1 Reason Comments Follow Up Reason Comments Abnormal Lab Specialty Diagnoses / Procedures Referred By Contac t Referred To Contact Rheumatology Diagnoses Abnormal laboratory test Procedures CONSULT TO RHEUM/IMMUN DISEASE OFFICE/OUTPATIENT [facility] 60 MINUTES Javier Riojas APRN.[employer] [address] [place] [address] Referral ID Status Reason Start Date Expiration Date V isits Requested Visits Authorized [id number] Closed PCP Requested Referral 09/27/2023 09/26/2024 1 1 Reason Comments Endometrial Biopsy Specialty Diagnoses / Procedures Referred By Contac t Referred To Contact [facility] Diagnoses Abnormal uterine bleeding Procedures ENDOMETRIAL BIOPSY ENDOMETRIAL BX W/WO ENDOCERVIX BX W/O DILAT SPX John Luque APRN.[employer] [place] [address] [facility] [address] [place] [address] Referral ID Status Reason Start Date Expiration Date V isits Requested Visits Authorized [id number] Closed Auto-Generate d Referral 11/15/2023 05/12/2024 1 1 Reason Comments Follow Up Reason Comments Pre-Op Exam Reason Onset Date Comments Refill Request 12/12/2023 Reason Comments Patient Update Reason Onset Date Comments Refill Request 02/04/2024 Reason Comments Appointment Reason Comments Pelvic Pain Reason Onset Date Comments Refill Request 02/19/2024 Reason Comments New Patient Evaluation Specialty Diagnoses / Procedures Referred By Contac t Referred To Contact Hematology Diagnoses Abnormal laboratory test Procedures CONSULT TO HEMATOLOGY OFFICE/OUTPATIENT NEW HIGH MDM 60 MINUTES Jolene Berry MD [address] [place] [address] Referral ID Status Reason Start Date Expiration Date V isits Requested Visits Authorized [id number] Closed PCP Requested Referral 02/04/2024 02/03/2025 1 1 Reason Onset Date Comments Problem visit IUD Removal 02/26/2024 Specialty Diagnoses / Procedures Referred By Contac t Referred To Contact [facility] Diagnoses Encounter for IUD removal Encounter for insertion of intrauterine contraceptive device Procedures REMOVE INTRAUTERINE DEVICE REMOVE INTRAUTERINE DEVICE INSERT INTRAUTERINE DEVICE LEVONORGESTREL IU 52MG 5 YR Itz Burris MD [address] [place] [address] [facility] [address] [place] [address] Referral ID Status Reason Start Date Expiration Date Visits Requested Visits Authorized [id number] Authorized Auto-Generat ed Referral 05/12/2024 2 2 Reason Onset Date Comments Weight Management 03/02/2024 Specialty Diagnoses / Procedures Referred By Contac t Referred To Contact Diagnoses Class 3 severe obesity with body mass index (BMI) of 50.0 to 59.9 in adult, unspecified obesity type, unspecified whether serious comorbidity present (HCC) Procedures CONSULT TO [facility] WEIGHT MANAGEMENT PROGRAM OFFICE/OUTPATIENT NEW HIGH MDM 60 MINUTES John Luque APRN.[employer] [address] [place] [address] Referral ID Status Reason Start Date Expiration Date V isits Requested Visits Authorized [id number] Closed PCP Requested Referral Auto-Generated Referral 11/13/2023 11/12/2024 1 1 Reason Onset Date Comments Refill Request 03/08/2024 Reason Comments Discussion Reason Comments Weight Management Reason Comments Insurance Authorization Reason Onset Date Comments Refill Request 05/19/2024 Reason Comments Weight Management Reason Comments Established Patient Reason Comments Non-Chemotherapy Treatment Specialty Diagnoses / Procedures Referred By Contac t Referred To Contact Diagnoses Menorrhagia with irregular cycle Iron malabsorption Iron deficiency anemia due to chronic blood loss Procedures IRON SUCROSE INJECTION PER 1 MG Sridevi Ramirez, DO [address] [place] [address] [facility] [address] [place] [address] Referral ID Status Reason Start Date Expiration Date V isits Requested Visits Authorized [id number] Authorized 06/03/2024 05/12/2025 0 99 Reason Comments Refill Request Reason Comments Referral Information Reason Comments Insurance Authorization Reason Comments Cough Cough, chest congest ion, bodyaches and St x 1.5 weeks Reason Comments Weight Management Reason Comments New Patient PSG done/ c/o iron d eficiency, always lethargic, trouble falling asleep, hx of anxiety Specialty Diagnoses / Procedures Referred By Contac t Referred To Contact Diagnoses Malaise and fatigue Class 3 severe obesity with body mass index (BMI) of 50.0 to 59.9 in adult, unspecified obesity type, unspecified whether serious comorbidity present (HCC) Elevated blood pressure reading without diagnosis of hypertension Procedures CONSULT TO SLEEP MEDICINE - ADULT OFFICE/OUTPATIENT NEW HIGH MDM 60 MINUTES Vikki Epstein MD [address] [place] [address] Phone: tel: fax: Referral ID Status Reason Start Date Expiration Date V isits Requested Visits Authorized [id number] Closed PCP Requested Referral 05/20/2024 05/20/2025 1 1 Reason Comments Established Patient Reason Onset Date Comments Refill Request 08/15/2024 Reason Onset Date Comments Well Woman Gardasil Injection 11/11/2024 Reason Onset Date Comments Refill Request 12/14/2024 Scheduled Active and Recently Administ ered Medications (unrecognized section and content) Medication Order 09/26/2020 09/27/2020 09/28/2020 ceFAZolin (ANCEF) IVPB 2 g (premix) (COMPLETED) 2,000 mg, Intravenous, at 100 mL/hr, Once, On Sat09/28/20 at 0730, For 1 dose, Pre-Procedure, Administer prior to incision., Indication (PRE PROCEDURE): Podiatry 0748 (Given - Provid er: Neo Price CRNA) lidocaine 10 mg/mL (1 %) injection 0.2 mL 0.2 mL, Intradermal, Once, On Sat09/28/20 at 0730, For 1 dose, Pre-Procedure, Around site prior to IV insertion 0730 (Due) oxyCODONE-acetaminophen (PERCOCET) 5-325 mg per tablet 2 tablet (COMPLETED) 2 tablet, Oral, Once, On Sat09/28/20 at 1130, For 1 dose 1052 (Given - Provid er: Alecia Abarca RN) sodium chloride (PF) (NS) flush 5 mL(Linked Group 1) 5 mL, Intravenous, Every 8 hours scheduled, First dose on Sat09/28/20 at 1400, PACU to Post Procedure, Saline lock Continuous Medication Order 09/26/2020 09/27/2020 09/28/2020 lactated Ringers infusion 75 mL/hr, Intravenous, Continuous, Starting on Sat09/28/20 at 0730, Pre-Procedure 0648 (New Bag - Prov ider: Kandy Rosario RN)0916 (Stopped - Provider: Jacqui Rm, MIHIR) lactated Ringers infusion 100 mL/hr, Intravenous, Continuous, Starting on Sat09/28/20 at 1015, PACU (only) 0927 (New Bag - Prov ider: Jacqui Rm, MIHIR)1110 (Stopped - Provider: Alecia Abarca RN) PRN Medication Order 09/26/2020 09/27/2020 09/28/2020 bupivacaine (PF) (MARCAINE) 0.5 % (5 mg/mL) injection (CANCELED) As needed, Starting on Sat09/28/20 at 0847, Intra-Procedure 0847 (Given - Provid er: Alvaro Lamb DPM) fentaNYL (SUBLIMAZE) injection 25 mcg 25 mcg, Intravenous, Every 5 min PRN, Pain, Starting on Sat09/28/20 at 0915, For 4 doses, PACU (only), [] Do not give more than 100 mcg while in PACU. 0933 (Given - Provid er: Jacqui Rm RN)0939 (Given - Provider: Jacqui Rm RN)0945 (Given - Provider: Jacqui Rm RN) HYDROmorphone (DILAUDID) injection 0.5 mg 0.5 mg, Intravenous, Every 5 min PRN, Pain, Starting on Sat09/28/20 at 0915, For 6 doses, PACU (only), [] Give if fentanyl not effective or not ordered. [] Do not give more than 3 mg total. labetaloL (NORMODYNE) injection 5 mg 5 mg, Intravenous, Every 5 min PRN, SBP greater than 180 or DBP greater than 120, Starting on Sat09/28/20 at 0915, For 4 doses, PACU (only), [] Do not give more than 20 mg total. [] Hold for HR less than 50. lidocaine 2% (PF) 5 mL, bupivacaine (PF) (MARCAINE) 0.5 % (5 mg/mL) 5 mL injection (CANCELED) As needed, Starting on Sat09/28/20 at 0745, Intra-Procedure 0745 (Given - Provid er: Alvaro Lamb DPM - Comment: right foot) meperidine (DEMEROL) injection 12.5 mg 12.5 mg, Intravenous, Every 5 min PRN, shivering, Starting on Sat09/28/20 at 0915, For 2 doses, PACU (only), Do not give more than 25 mg total., RESTRICTED to use in rigors OR pain management in patients with a documented opioid allergy. Please select this medication s indication. Rigors morphine Soln 3-5 mg 3-5 mg, Intravenous, Every 3 hours PRN (may repeat), moderate to severe pain, Starting on Sat09/28/20 at 0934, [] Initiate with 3 mg IV every 3 hours prn moderate to severe pain. [] For unrelieved pain, may repeat 3 mg IV dose within 30 minutes of initial dose. [] If pain is RELIEVED after repeat dose, change to 5 mg IV every 3 hours prn moderate to severe pain. [] If pain is UNrelieved after repeat dose, or patient requires dose reduction, call physician. [] If multiple routes are ordered for pain meds, it is recommended that oral be the first choice, IV the second choice, rectal the third choice, and IM the fourth choice. naloxone (NARCAN) injection 0.1 mg(Linked Group 2) 0.1 mg, Intravenous, As needed, opioid reversal, Starting on Sat09/28/20 at 0915, PACU (only), [] Mix nalOXone (NARCAN) 0.4 mg (1ml) with 9 mL of Normal Saline to total 10 mL. [] Administer 0.1 mg (2.5ml) IV Push every 2 minutes until respiratory rate is 10 or greater. naloxone (NARCAN) injection 0.1 mg(Linked Group 3) 0.1 mg, Intravenous, As needed, opioid reversal, Respiratory rate less than 8 per minute, Starting on Sat09/28/20 at 0934, [] Mix nalOXone (NARCAN) 0.4 mg (1ml) with 9 mL of Normal Saline to total 10 mL. [] Administer 0.1 mg (2.5ml) IV Push every 2 minutes until respiratory rate is 10 or greater. naloxone (NARCAN) injection 0.4 mg(Linked Group 2) 0.4 mg, Intravenous, As needed, opioid reversal, patient is pulseless, breathless, and unresponsive, Starting on Sat09/28/20 at 0915, PACU (only), Call a code first, then administer naloxone dose undiluted IV Push over 30 seconds. naloxone (NARCAN) injection 0.4 mg(Linked Group 3) 0.4 mg, Intravenous, As needed, opioid reversal, patient is pulseless, breathless, and unresponsive, Starting on Sat09/28/20 at 0934, Call a code first, then administer naloxone dose undiluted IV Push over 30 seconds. ondansetron (ZOFRAN) injection 4 mg (COMPLETED) 4 mg, Intravenous, Once as needed, nausea, vomiting, Starting on Sat09/28/20 at 0915, For 1 dose, PACU (only), Administer first as needed for nausea/vomiting, or as directed by anesthesia 1030 (Given - Provid er: Alecia Abarca RN) prochlorperazine (COMPAZINE) injection 5 mg (COMPLETED) 5 mg, Intravenous, Once as needed, nausea, Starting on Sat09/28/20 at 0915, For 1 dose, PACU (only), Administer if ondansetron (Zofran), promethazine (Phenergan), and Metocolopramide (Reglan) ineffective or not ordered, or as directed by anesthesia, as needed for nausea/vomiting 0928 (Given - Provid er: Jacqui Rm RN) sodium chloride (PF) (NS) flush 5 mL(Linked Group 1) 5 mL, Intravenous, As needed, line care, Starting on Sat09/28/20 at 0934, PACU to Post Procedure sodium chloride 0.9% (NS)(Linked Group 1) 0-150 mL/hr, Intravenous, As needed, To flush line after IV infusions when no maintenance IV ordered or a compatibility issue. Infuse 20ml at the same rate as the secondary infusion, Starting on Sat09/28/20 at 0934, PACU to Post Procedure, Run as Primary IV. NOT intended for KVO. Linked Groups Order Group 1: Saline lock IV (CANCELED) Routine, Continuous, Starting on Sat09/28/20 at 0935, Until Specified
When patient tolerating PO, PACU to Post Procedure And sodium chloride (PF) (NS) flush 5 mLJump to med 5 mL, Intravenous, As needed, line care, Starting on Sat09/28/20 at 0934, PACU to Post Procedure And sodium chloride (PF) (NS) flush 5 mLJump to med 5 mL, Intravenous, Every 8 hours scheduled, First dose on Sat09/28/20 at 1400, PACU to Post Procedure
Saline lock
And sodium chloride 0.9% (NS)Jump to med 0-150 mL/hr, Intravenous, As needed, To flush line after IV infusions when no maintenance IV ordered or a compatibility issue. Infuse 20ml at the same rate as the secondary infusion, Starting on Sat09/28/20 at 0934, PACU to Post Procedure
Run as Primary IV. NOT intended for KVO.
Group 2: Notify Anesthesiologist (CANCELED) STAT, Until discontinued, Starting on Sat09/28/20 at 0916, Until Specified
Notify anesthesiologist immediately if respiratory rate less than or equal to 8 breaths per minute., PACU (only) And naloxone (NARCAN) injection 0.1 mgJump to med 0.1 mg, Intravenous, As needed, opioid reversal, Starting on Sat09/28/20 at 0915, PACU (only)
[] Mix nalOXone (NARCAN) 0.4 mg (1ml) with 9 mL of Normal Saline to total 10 mL. [] Administer 0.1 mg (2.5ml) IV Push every 2 minutes until respiratory rate is 10 or greater.
And naloxone (NARCAN) injection 0.4 mgJump to med 0.4 mg, Intravenous, As needed, opioid reversal, patient is pulseless, breathless, and unresponsive, Starting on Sat09/28/20 at 0915, PACU (only)
Call a code first, then administer naloxone dose undiluted IV Push over 30 seconds.
Group 3: naloxone (NARCAN) injection 0.1 mgJump to med 0.1 mg, Intravenous, As needed, opioid reversal, Respiratory rate less than 8 per minute, Starting on Sat09/28/20 at 0934
[] Mix nalOXone (NARCAN) 0.4 mg (1ml) with 9 mL of Normal Saline to total 10 mL. [] Administer 0.1 mg (2.5ml) IV Push every 2 minutes until respiratory rate is 10 or greater.
And Notify physician (CANCELED) STAT, Until discontinued, Starting on Sat09/28/20 at 0935, Until Specified
Respiratory rate less than: 8
For respiratory rate less than or equal to 8 per minute, notify physician and/or appropriate staff for additional orders. And naloxone (NARCAN) injection 0.4 mgJump to med 0.4 mg, Intravenous, As needed, opioid reversal, patient is pulseless, breathless, and unresponsive, Starting on Sat09/28/20 at 0934
Call a code first, then administer naloxone dose undiluted IV Push over 30 seconds.
<item><item><item><item> Privacy Markings (unrecogniz ed section and content) Section Author: Thuy Bragg PROHIBITION ON REDISCLOSURE OF CONFIDENTIAL INFORMATION This notice accompanies a disclosure of information concerning a client made to you with the consent of such client. Section Author: Thuy Bragg PROHIBITION ON REDISCLOSURE OF CONFIDENTIAL INFORMATION This notice accompanies a disclosure of information concerning a client made to you with the consent of such client. Section Author: Thuy Bragg PROHIBITION ON REDISCLOSURE OF CONFIDENTIAL INFORMATION This notice accompanies a disclosure of information concerning a client made to you with the consent of such client. Section Author: Thuy Bragg PROHIBITION ON REDISCLOSURE OF CONFIDENTIAL INFORMATION This notice accompanies a disclosure of information concerning a client made to you with the consent of such client. Source Comments (unrecognize d section and content) In the event this informatio n is protected by the Federal Confidentiality of Alcohol and Drug Abuse Patient Records regulations: The Federal rules restrict any use of the information to criminally investigate or prosecute any alcohol or drug abuse patient.[facility] Center[facility] the event this information is protected by the Federal Confidentiality of Alcohol and Drug Abuse Patient Records regulations: The Federal rules restrict any use of the information to criminally investigate or prosecute any alcohol or drug abuse patient.[facility] CenterIn the event this information is protected by the Federal Confidentiality of Alcohol and Drug Abuse Patient Records regulations: The Federal rules restrict any use of the information to criminally investigate or prosecute any alcohol or drug abuse patient.[facility] Center[facility] the event this information is protected by the Federal Confidentiality of Alcohol and Drug Abuse Patient Records regulations: The Federal rules restrict any use of the information to criminally investigate or prosecute any alcohol or drug abuse patient.[facility] CenterIn the event this information is protected by the Federal Confidentiality of Alcohol and Drug Abuse Patient Records regulations: The Federal rules restrict any use of the information to criminally investigate or prosecute any alcohol or drug abuse patient.[facility] CenterIn the event this information is protected by the Federal Confidentiality of Alcohol and Drug Abuse Patient Records regulations: The Federal rules restrict any use of the information to criminally investigate or prosecute any alcohol or drug abuse patient.[facility] CenterIn the event this information is protected by the Federal Confidentiality of Alcohol and Drug Abuse Patient Records regulations: The Federal rules restrict any use of the information to criminally investigate or prosecute any alcohol or drug abuse patient.[facility] CenterIn the event this information is protected by the Federal Confidentiality of Alcohol and Drug Abuse Patient Records regulations: The Federal rules restrict any use of the information to criminally investigate or prosecute any alcohol or drug abuse patient.[facility] CenterIn the event this information is protected by the Federal Confidentiality of Alcohol and Drug Abuse Patient Records regulations: The Federal rules restrict any use of the information to criminally investigate or prosecute any alcohol or drug abuse patient.[facility] CenterIn the event this information is protected by the Federal Confidentiality of Alcohol and Drug Abuse Patient Records regulations: The Federal rules restrict any use of the information to criminally investigate or prosecute any alcohol or drug abuse patient.[facility] CenterIn the event this information is protected by the Federal Confidentiality of Alcohol and Drug Abuse Patient Records regulations: The Federal rules restrict any use of the information to criminally investigate or prosecute any alcohol or drug abuse patient.[facility] CenterIn the event this information is protected by the Federal Confidentiality of Alcohol and Drug Abuse Patient Records regulations: The Federal rules restrict any use of the information to criminally investigate or prosecute any alcohol or drug abuse patient.[facility] CenterIn the event this information is protected by the Federal Confidentiality of Alcohol and Drug Abuse Patient Records regulations: The Federal rules restrict any use of the information to criminally investigate or prosecute any alcohol or drug abuse patient.[facility] CenterIn the event this information is protected by the Federal Confidentiality of Alcohol and Drug Abuse Patient Records regulations: The Federal rules restrict any use of the information to criminally investigate or prosecute any alcohol or drug abuse patient.[facility] CenterIn the event this information is protected by the Federal Confidentiality of Alcohol and Drug Abuse Patient Records regulations: The Federal rules restrict any use of the information to criminally investigate or prosecute any alcohol or drug abuse patient.[facility] CenterIn the event this information is protected by the Federal Confidentiality of Alcohol and Drug Abuse Patient Records regulations: The Federal rules restrict any use of the information to criminally investigate or prosecute any alcohol or drug abuse patient.[facility] CenterIn the event this information is protected by the Federal Confidentiality of Alcohol and Drug Abuse Patient Records regulations: The Federal rules restrict any use of the information to criminally investigate or prosecute any alcohol or drug abuse patient.[facility] CenterIn the event this information is protected by the Federal Confidentiality of Alcohol and Drug Abuse Patient Records regulations: The Federal rules restrict any use of the information to criminally investigate or prosecute any alcohol or drug abuse patient.[facility] CenterIn the event this information is protected by the Federal Confidentiality of Alcohol and Drug Abuse Patient Records regulations: The Federal rules restrict any use of the information to criminally investigate or prosecute any alcohol or drug abuse patient.[facility] CenterIn the event this information is protected by the Federal Confidentiality of Alcohol and Drug Abuse Patient Records regulations: The Federal rules restrict any use of the information to criminally investigate or prosecute any alcohol or drug abuse patient.[facility] CenterIn the event this information is protected by the Federal Confidentiality of Alcohol and Drug Abuse Patient Records regulations: The Federal rules restrict any use of the information to criminally investigate or prosecute any alcohol or drug abuse patient.[facility] CenterIn the event this information is protected by the Federal Confidentiality of Alcohol and Drug Abuse Patient Records regulations: The Federal rules restrict any use of the information to criminally investigate or prosecute any alcohol or drug abuse patient.[facility] CenterIn the event this information is protected by the Federal Confidentiality of Alcohol and Drug Abuse Patient Records regulations: The Federal rules restrict any use of the information to criminally investigate or prosecute any alcohol or drug abuse patient.[facility] CenterIn the event this information is protected by the Federal Confidentiality of Alcohol and Drug Abuse Patient Records regulations: The Federal rules restrict any use of the information to criminally investigate or prosecute any alcohol or drug abuse patient.[facility] CenterIn the event this information is protected by the Federal Confidentiality of Alcohol and Drug Abuse Patient Records regulations: The Federal rules restrict any use of the information to criminally investigate or prosecute any alcohol or drug abuse patient.[facility] CenterIn the event this information is protected by the Federal Confidentiality of Alcohol and Drug Abuse Patient Records regulations: The Federal rules restrict any use of the information to criminally investigate or prosecute any alcohol or drug abuse patient.[facility] CenterIn the event this information is protected by the Federal Confidentiality of Alcohol and Drug Abuse Patient Records regulations: The Federal rules restrict any use of the information to criminally investigate or prosecute any alcohol or drug abuse patient.[facility] CenterIn the event this information is protected by the Federal Confidentiality of Alcohol and Drug Abuse Patient Records regulations: The Federal rules restrict any use of the information to criminally investigate or prosecute any alcohol or drug abuse patient.[facility] CenterIn the event this information is protected by the Federal Confidentiality of Alcohol and Drug Abuse Patient Records regulations: The Federal rules restrict any use of the information to criminally investigate or prosecute any alcohol or drug abuse patient.[facility] CenterIn the event this information is protected by the Federal Confidentiality of Alcohol and Drug Abuse Patient Records regulations: The Federal rules restrict any use of the information to criminally investigate or prosecute any alcohol or drug abuse patient.[facility] CenterIn the event this information is protected by the Federal Confidentiality of Alcohol and Drug Abuse Patient Records regulations: The Federal rules restrict any use of the information to criminally investigate or prosecute any alcohol or drug abuse patient.[facility] CenterIn the event this information is protected by the Federal Confidentiality of Alcohol and Drug Abuse Patient Records regulations: The Federal rules restrict any use of the information to criminally investigate or prosecute any alcohol or drug abuse patient.[facility] CenterIn the event this information is protected by the Federal Confidentiality of Alcohol and Drug Abuse Patient Records regulations: The Federal rules restrict any use of the information to criminally investigate or prosecute any alcohol or drug abuse patient.[facility] CenterIn the event this information is protected by the Federal Confidentiality of Alcohol and Drug Abuse Patient Records regulations: The Federal rules restrict any use of the information to criminally investigate or prosecute any alcohol or drug abuse patient.[facility] CenterIn the event this information is protected by the Federal Confidentiality of Alcohol and Drug Abuse Patient Records regulations: The Federal rules restrict any use of the information to criminally investigate or prosecute any alcohol or drug abuse patient.[facility] CenterIn the event this information is protected by the Federal Confidentiality of Alcohol and Drug Abuse Patient Records regulations: The Federal rules restrict any use of the information to criminally investigate or prosecute any alcohol or drug abuse patient.[facility] CenterIn the event this information is protected by the Federal Confidentiality of Alcohol and Drug Abuse Patient Records regulations: The Federal rules restrict any use of the information to criminally investigate or prosecute any alcohol or drug abuse patient.[facility] CenterIn the event this information is protected by the Federal Confidentiality of Alcohol and Drug Abuse Patient Records regulations: The Federal rules restrict any use of the information to criminally investigate or prosecute any alcohol or drug abuse patient.[facility] CenterIn the event this information is protected by the Federal Confidentiality of Alcohol and Drug Abuse Patient Records regulations: The Federal rules restrict any use of the information to criminally investigate or prosecute any alcohol or drug abuse patient.[facility] CenterIn the event this information is protected by the Federal Confidentiality of Alcohol and Drug Abuse Patient Records regulations: The Federal rules restrict any use of the information to criminally investigate or prosecute any alcohol or drug abuse patient.[facility] CenterIn the event this information is protected by the Federal Confidentiality of Alcohol and Drug Abuse Patient Records regulations: The Federal rules restrict any use of the information to criminally investigate or prosecute any alcohol or drug abuse patient.[facility] CenterIn the event this information is protected by the Federal Confidentiality of Alcohol and Drug Abuse Patient Records regulations: The Federal rules restrict any use of the information to criminally investigate or prosecute any alcohol or drug abuse patient.[facility] CenterIn the event this information is protected by the Federal Confidentiality of Alcohol and Drug Abuse Patient Records regulations: The Federal rules restrict any use of the information to criminally investigate or prosecute any alcohol or drug abuse patient.[facility] CenterIn the event this information is protected by the Federal Confidentiality of Alcohol and Drug Abuse Patient Records regulations: The Federal rules restrict any use of the information to criminally investigate or prosecute any alcohol or drug abuse patient.[facility] CenterIn the event this information is protected by the Federal Confidentiality of Alcohol and Drug Abuse Patient Records regulations: The Federal rules restrict any use of the information to criminally investigate or prosecute any alcohol or drug abuse patient.[facility] CenterIn the event this information is protected by the Federal Confidentiality of Alcohol and Drug Abuse Patient Records regulations: The Federal rules restrict any use of the information to criminally investigate or prosecute any alcohol or drug abuse patient.[facility] CenterIn the event this information is protected by the Federal Confidentiality of Alcohol and Drug Abuse Patient Records regulations: The Federal rules restrict any use of the information to criminally investigate or prosecute any alcohol or drug abuse patient.[facility] CenterIn the event this information is protected by the Federal Confidentiality of Alcohol and Drug Abuse Patient Records regulations: The Federal rules restrict any use of the information to criminally investigate or prosecute any alcohol or drug abuse patient.[facility] CenterIn the event this information is protected by the Federal Confidentiality of Alcohol and Drug Abuse Patient Records regulations: The Federal rules restrict any use of the information to criminally investigate or prosecute any alcohol or drug abuse patient.[facility] CenterIn the event this information is protected by the Federal Confidentiality of Alcohol and Drug Abuse Patient Records regulations: The Federal rules restrict any use of the information to criminally investigate or prosecute any alcohol or drug abuse patient.[facility] CenterIn the event this information is protected by the Federal Confidentiality of Alcohol and Drug Abuse Patient Records regulations: The Federal rules restrict any use of the information to criminally investigate or prosecute any alcohol or drug abuse patient.[facility] CenterIn the event this information is protected by the Federal Confidentiality of Alcohol and Drug Abuse Patient Records regulations: The Federal rules restrict any use of the information to criminally investigate or prosecute any alcohol or drug abuse patient.[facility] CenterIn the event this information is protected by the Federal Confidentiality of Alcohol and Drug Abuse Patient Records regulations: The Federal rules restrict any use of the information to criminally investigate or prosecute any alcohol or drug abuse patient.[facility] CenterIn the event this information is protected by the Federal Confidentiality of Alcohol and Drug Abuse Patient Records regulations: The Federal rules restrict any use of the information to criminally investigate or prosecute any alcohol or drug abuse patient.[facility] CenterIn the event this information is protected by the Federal Confidentiality of Alcohol and Drug Abuse Patient Records regulations: The Federal rules restrict any use of the information to criminally investigate or prosecute any alcohol or drug abuse patient.[facility] CenterIn the event this information is protected by the Federal Confidentiality of Alcohol and Drug Abuse Patient Records regulations: The Federal rules restrict any use of the information to criminally investigate or prosecute any alcohol or drug abuse patient.[facility] CenterIn the event this information is protected by the Federal Confidentiality of Alcohol and Drug Abuse Patient Records regulations: The Federal rules restrict any use of the information to criminally investigate or prosecute any alcohol or drug abuse patient.[facility] CenterIn the event this information is protected by the Federal Confidentiality of Alcohol and Drug Abuse Patient Records regulations: The Federal rules restrict any use of the information to criminally investigate or prosecute any alcohol or drug abuse patient.[facility] CenterIn the event this information is protected by the Federal Confidentiality of Alcohol and Drug Abuse Patient Records regulations: The Federal rules restrict any use of the information to criminally investigate or prosecute any alcohol or drug abuse patient.[facility] CenterIn the event this information is protected by the Federal Confidentiality of Alcohol and Drug Abuse Patient Records regulations: The Federal rules restrict any use of the information to criminally investigate or prosecute any alcohol or drug abuse patient.[facility] CenterIn the event this information is protected by the Federal Confidentiality of Alcohol and Drug Abuse Patient Records regulations: The Federal rules restrict any use of the information to criminally investigate or prosecute any alcohol or drug abuse patient.[facility] CenterIn the event this information is protected by the Federal Confidentiality of Alcohol and Drug Abuse Patient Records regulations: The Federal rules restrict any use of the information to criminally investigate or prosecute any alcohol or drug abuse patient.[facility] CenterIn the event this information is protected by the Federal Confidentiality of Alcohol and Drug Abuse Patient Records regulations: The Federal rules restrict any use of the information to criminally investigate or prosecute any alcohol or drug abuse patient.[facility] CenterIn the event this information is protected by the Federal Confidentiality of Alcohol and Drug Abuse Patient Records regulations: The Federal rules restrict any use of the information to criminally investigate or prosecute any alcohol or drug abuse patient.[facility] CenterIn the event this information is protected by the Federal Confidentiality of Alcohol and Drug Abuse Patient Records regulations: The Federal rules restrict any use of the information to criminally investigate or prosecute any alcohol or drug abuse patient.[facility] CenterIn the event this information is protected by the Federal Confidentiality of Alcohol and Drug Abuse Patient Records regulations: The Federal rules restrict any use of the information to criminally investigate or prosecute any alcohol or drug abuse patient.[facility] CenterIn the event this information is protected by the Federal Confidentiality of Alcohol and Drug Abuse Patient Records regulations: The Federal rules restrict any use of the information to criminally investigate or prosecute any alcohol or drug abuse patient.[facility] CenterIn the event this information is protected by the Federal Confidentiality of Alcohol and Drug Abuse Patient Records regulations: The Federal rules restrict any use of the information to criminally investigate or prosecute any alcohol or drug abuse patient.[facility] CenterIn the event this information is protected by the Federal Confidentiality of Alcohol and Drug Abuse Patient Records regulations: The Federal rules restrict any use of the information to criminally investigate or prosecute any alcohol or drug abuse patient.[facility] CenterIn the event this information is protected by the Federal Confidentiality of Alcohol and Drug Abuse Patient Records regulations: The Federal rules restrict any use of the information to criminally investigate or prosecute any alcohol or drug abuse patient.[facility] CenterIn the event this information is protected by the Federal Confidentiality of Alcohol and Drug Abuse Patient Records regulations: The Federal rules restrict any use of the information to criminally investigate or prosecute any alcohol or drug abuse patient.[facility] CenterIn the event this information is protected by the Federal Confidentiality of Alcohol and Drug Abuse Patient Records regulations: The Federal rules restrict any use of the information to criminally investigate or prosecute any alcohol or drug abuse patient.[facility] CenterIn the event this information is protected by the Federal Confidentiality of Alcohol and Drug Abuse Patient Records regulations: The Federal rules restrict any use of the information to criminally investigate or prosecute any alcohol or drug abuse patient.[facility] CenterIn the event this information is protected by the Federal Confidentiality of Alcohol and Drug Abuse Patient Records regulations: The Federal rules restrict any use of the information to criminally investigate or prosecute any alcohol or drug abuse patient.[facility] CenterIn the event this information is protected by the Federal Confidentiality of Alcohol and Drug Abuse Patient Records regulations: The Federal rules restrict any use of the information to criminally investigate or prosecute any alcohol or drug abuse patient.[facility] CenterIn the event this information is protected by the Federal Confidentiality of Alcohol and Drug Abuse Patient Records regulations: The Federal rules restrict any use of the information to criminally investigate or prosecute any alcohol or drug abuse patient.[facility] CenterIn the event this information is protected by the Federal Confidentiality of Alcohol and Drug Abuse Patient Records regulations: The Federal rules restrict any use of the information to criminally investigate or prosecute any alcohol or drug abuse patient.[facility] CenterIn the event this information is protected by the Federal Confidentiality of Alcohol and Drug Abuse Patient Records regulations: The Federal rules restrict any use of the information to criminally investigate or prosecute any alcohol or drug abuse patient.[facility] CenterIn the event this information is protected by the Federal Confidentiality of Alcohol and Drug Abuse Patient Records regulations: The Federal rules restrict any use of the information to criminally investigate or prosecute any alcohol or drug abuse patient.[facility] Care Teams (unrecognized sec tion and content) Admissions Manager Rn Relationship Specialty Start Date End Date Javier Riojas APRN.[employer] [address] [place] [address] PCP - General Family Medicine 08/26/23 Admissions Manager Rn Relationship Specialty Start Date End Date Javier Riojas APRN.[employer] [address] [place] [address] [id number] PCP - General Family Medicine 08/26/23 Admissions Manager Rn Relationship Specialty Start Date End Date Javier Riojas APRN.[employer] [address] [place] [id number] PCP - General Family Medicine 08/26/23 Admissions Manager Rn Relationship Specialty Start Date End Date Javier Riojas APRN.[employer] [address] [place] [address], [place] [address] PCP - General Family Medicine 08/26/23 Admissions Manager Rn Relationship Specialty Start Date End Date Javier Riojas APRN.[employer] [address] [place] [phone] PCP - General Family Medicine 08/26/23 Admissions Manager Rn Relationship Specialty Start Date End Date Javier Riojas APRN.[employer] [address] [place] [id number] PCP - General Family Medicine 08/26/23 Admissions Manager Rn Relationship Specialty Start Date End Date Javier Riojas APRN.[employer] [address] [place] [id number] PCP - General Family Medicine 08/26/23 Admissions Manager Rn Relationship Specialty Start Date End Date Javier Riojas APRN.[employer] [address] [place] [id number] PCP - General Family Medicine 08/26/23 Admissions Manager Rn Relationship Specialty Start Date End Date Javier Riojas APRN.[employer] [address] [place] [address], [place] [id number] PCP - General Family Medicine 08/26/23 Admissions Manager Rn Relationship Specialty Start Date End Date Javier Riojas APRN.[employer] [address] [place] [id number] PCP - General Family Medicine 08/26/23 Admissions Manager Rn Relationship Specialty Start Date End Date Javier Riojas APRN.SOLUTIONS EXECUTIVE SECURITY [address] [place] [address] [phone] PCP - General Family Medicine 08/26/23 Admissions Manager Rn Relationship Specialty Start Date End Date Javier Riojas APRN.SOLUTIONS EXECUTIVE SECURITY [address] [place] [address] [id number] PCP - General Family Medicine 08/26/23 Admissions Manager Rn Relationship Specialty Start Date End Date Javier Riojas 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 SECURITY [address] [place] [address] [phone] PCP - General Family Medicine 08/26/23 Admissions Manager Rn Relationship Specialty Start Date End Date Javier Riojas 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 SECURITY [address] [place] [address] [id number] PCP - General Family Medicine 08/26/23 Admissions Manager Rn Relationship Specialty Start Date End Date Javier Riojas, 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 SECURITY [address] [place] [address] [id number] PCP - General Family Medicine 08/26/23 Admissions Manager Rn Relationship Specialty Start Date End Date Javier Riojas, 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 SECURITY [address] [place] [address] [phone] PCP - General Family Medicine 08/26/23 Admissions Manager Rn Relationship Specialty Start Date End Date Javier Riojas 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 SECURITY [address] [place] [address] [phone] PCP - General Family Medicine 08/26/23 Admissions Manager Rn Relationship Specialty Start Date End Date Javier Riojas, 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 SECURITY [address] [place] [address] [id number] PCP - General Family Medicine 08/26/23 Admissions Manager Rn Relationship Specialty Start Date End Date Javier Riojas APRN.SOLUTIONS EXECUTIVE SECURITY [address] [place] [address] [id number] PCP - General Family Medicine 08/26/23 Admissions Manager Rn Relationship Specialty Start Date End Date Javier Riojas APRN.SOLUTIONS EXECUTIVE SECURITY [address] [place] [address] [phone] PCP - General Family Medicine 08/26/23 Admissions Manager Rn Relationship Specialty Start Date End Date Javier Riojas APRN.SOLUTIONS EXECUTIVE SECURITY [address] [place] [address] [id number] PCP - General Family Medicine 08/26/23 Admissions Manager Rn Relationship Specialty Start Date End Date Javier Riojas APRN.SOLUTIONS EXECUTIVE SECURITY [address] [place] [address] [id number] PCP - General Family Medicine 08/26/23 Admissions Manager Rn Relationship Specialty Start Date End Date Javier Riojas APRN.SOLUTIONS EXECUTIVE SECURITY [address] [place] [address] [phone] PCP - General Family Medicine 08/26/23 Admissions Manager Rn Relationship Specialty Start Date End Date Javier Riojas APRN.SOLUTIONS EXECUTIVE SECURITY [address] [place] [address] [phone] PCP - General Family Medicine 08/26/23 Admissions Manager Rn Relationship Specialty Start Date End Date Javier Riojas APRN.SOLUTIONS EXECUTIVE SECURITY [address] [place] [address] [phone] PCP - General Family Medicine 08/26/23 Admissions Manager Rn Relationship Specialty Start Date End Date Javier Riojas APRN.SOLUTIONS EXECUTIVE SECURITY [address] [place] [address] [phone] PCP - General Family Medicine 08/26/23 Admissions Manager Rn Relationship Specialty Start Date End Date Javier Riojas APRN.SOLUTIONS EXECUTIVE SECURITY [address] [place] [address] [phone] PCP - General Family Medicine 08/26/23 Admissions Manager Rn Relationship Specialty Start Date End Date Javier Riojas 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 SECURITY [address] [place] [address] [phone] PCP - General Family Medicine 08/26/23 Admissions Manager Rn Relationship Specialty Start Date End Date Javier Riojas APRN.SOLUTIONS EXECUTIVE SECURITY [address] [place] [address] [phone] PCP - General Family Medicine 08/26/23 Admissions Manager Rn Relationship Specialty Start Date End Date Javier Riojas APRN.SOLUTIONS EXECUTIVE SECURITY [address] [place] [address] 24080 PCP - General Family Medicine 08/26/23 Admissions Manager Rn Relationship Specialty Start Date End Date Javier Riojas 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 SECURITY [address] [place] [address] [id number] PCP - General Family Medicine 08/26/23 Admissions Manager Rn Relationship Specialty Start Date End Date Javier Riojas 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 SECURITY [address] [place] [address] [phone] PCP - General Family Medicine 08/26/23 Admissions Manager Rn Relationship Specialty Start Date End Date Javier Riojas 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 SECURITY [address] [place] [address] [phone] PCP - General Family Medicine 08/26/23 Admissions Manager Rn Relationship Specialty Start Date End Date Javier Riojas APRN.SOLUTIONS EXECUTIVE SECURITY [facility] [place] [address] PCP - General Family Medicine 08/26/23 Admissions Manager Rn Relationship Specialty Start Date End Date Javier Riojas APRN.SOLUTIONS EXECUTIVE SECURITY [address] [place] [address] [id number] PCP - General Family Medicine 08/26/23 Admissions Manager Rn Relationship Specialty Start Date End Date Javier Riojas APRN.SOLUTIONS EXECUTIVE SECURITY [address] [place] [address] [phone] PCP - General Family Medicine 08/26/23 Admissions Manager Rn Relationship Specialty Start Date End Date Javier Riojas APRN.SOLUTIONS EXECUTIVE SECURITY [address] [place] [address] [phone] PCP - General Family Medicine 08/26/23 Admissions Manager Rn Relationship Specialty Start Date End Date Javier Riojas, 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 SECURITY [address] [place] [address] [phone] PCP - General Family Medicine 08/26/23 Admissions Manager Rn Relationship Specialty Start Date End Date Javier Riojas, 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 SECURITY [address] [place] [address] [phone] PCP - General Family Medicine 08/26/23 Admissions Manager Rn Relationship Specialty Start Date End Date Javier Riojas APRN.SOLUTIONS EXECUTIVE SECURITY [address] [place] [address] [phone] PCP - General Family Medicine 08/26/23 Admissions Manager Rn Relationship Specialty Start Date End Date Javier Riojas APRN.SOLUTIONS EXECUTIVE SECURITY [address] [place] [address] [id number] PCP - General Family Medicine 08/26/23 Admissions Manager Rn Relationship Specialty Start Date End Date Javier Riojas, 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 SECURITY [address] [place] [address] [phone] PCP - General Family Medicine 08/26/23 Admissions Manager Rn Relationship Specialty Start Date End Date Javier Riojas 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 SECURITY [address] [place] [address] [id number] PCP - General Family Medicine 08/26/23 Admissions Manager Rn Relationship Specialty Start Date End Date Javier Riojas APRN.SOLUTIONS EXECUTIVE SECURITY [address] [place] [address] [phone] PCP - General Family Medicine 08/26/23 Admissions Manager Rn Relationship Specialty Start Date End Date Javier Riojas 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 SECURITY [address] [place] [address] [phone] PCP - General Family Medicine 08/26/23 Admissions Manager Rn Relationship Specialty Start Date End Date Javier Riojas, 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 SECURITY [address] [place] [address] [id number] PCP - General Family Medicine 08/26/23 FOR RECORDS PERTAINING TO PATIENTS WHO ARE OR HAVE BEEN ENROLLED IN A CHEMICAL DEPENDENCY/SUBSTANCEABUSE PROGRAM, SOME INFORMATION MAY BE OMITTED. This clinical summary was aggregated from multiple sources. Caution should be exercised in using it in the provision of clinical care. This summary normalizes information from multiple sources, and as a consequence, information in this document may materially change the coding, format and clinical context of patient data. In addition, data may be omitted in some cases. CLINICAL DECISIONS SHOULD BE BASED ON THE PRIMARY CLINICAL RECORDS. [facility] provides no warranty or guarantee of the accuracy or completeness of information in this document.
[2025-03-05 21:18] VITALS: BP 152/94; PULSE 103; RESP 16; O2SAT 98
[2025-03-05 22:05] VITALS: BP 138/71; PULSE 80; RESP 18; TEMP 37; O2SAT 99
== END 2025-03-05 22:06 | disposition home or self-care (01) ==
PROVIDERS: Emergency Provider Emergency Medicine; PCP Nurse Practitioner Family; Visit Provider Emergency Medicine
DX: F41.9 Anxiety disorder, unspecified (principal); Z79.899 Other long term (current) drug therapy; E03.9 Hypothyroidism, unspecified; Z79.890 Hormone replacement therapy; F12.99 Cannabis use, unspecified with unspecified cannabis-induced disorder
CPT/HCPCS: 99283